=== PATIENT | male | born 1955 | race Caucasian/White ===

== ENCOUNTER 2016-12-03 10:09 | Emergency (ER) | payer OTHER ==
[~2016-12-03] VITALS: Ht 177.8 cm; Wt 109.8 kg
[2016-12-03] MEDS ORDERED: SENNA LAX8.6 MG PO (10:43)
[2016-12-03] MEDS ORDERED: ZESTRIL40 MG PO (10:44)
[2016-12-03] MEDS ORDERED: AMOXICILLIN875 MG PO (10:45)
[2016-12-03] MEDS ORDERED: FUROSEMIDE40 MG PO (10:45)
[2016-12-03] MEDS ORDERED: ROBAXIN-750750 MG PO ×2 (10:46)
[2016-12-03] MEDS ORDERED: TIZANIDINE HCL4 MG PO (10:46)
[2016-12-03] MEDS ORDERED: MIRAPEX0.5 MG PO (10:47)
[2016-12-03] MEDS ORDERED: ZOLOFT50 MG PO (10:47)
[2016-12-03] MEDS ORDERED: K-TAB ER20 MEQ PO (10:47)
[2016-12-03] MEDS ORDERED: PERCOCET 5-3251 EACH PO ×2 (10:48→10:49)
[2016-12-03] MEDS ORDERED: CORGARD80 MG PO (10:48)
[2016-12-03] MEDS ORDERED: OMEPRAZOLE20 MG PO (10:49)
--- NOTE | 2016-12-03 16:35 | EKG ---
[facility] [address] [facility] [place], [place] [address] Signed Normal sinus rhythm Incomplete right bundle branch block T wave abnormality, consider anterior ischemia Abnormal ECG No previous ECGs available Confirmed by TAISHA BAE MD ([id number]) on 12/03/2016 4:35:40 PM Electronically Signed By: TAISHA BAE MD 12/03/16 1635 PATIENT NAME: KASSANDRA [place] Electrocardiogram DATE OF : 57 PHYSICIAN: TAISHA BAE MD REPORT #: [id number] REPORT IS CONFIDENTIAL AND NOT TO BE RELEASED WITHOUT AUTHORIZATION
== END 2016-12-03 14:05 | disposition home or self-care (01) ==
LOC: ED 10:09
DX: I11.0 Hypertensive heart disease with heart failure (principal); I50.9 Heart failure, unspecified; Z79.899 Other long term (current) drug therapy; Z79.2 Long term (current) use of antibiotics
CPT/HCPCS: 71020; 74020; 80053; 81001; 83880; 84484; 85025; 93005; 93010; 99284

== ENCOUNTER 2016-12-03 17:33 | Emergency (ER) | payer OTHER ==
[~2016-12-03] VITALS: Ht 177.8 cm; Wt 109.8 kg
[~2016-12-03 17:33] MED LIST: AMOXICILLIN875 MG PO; CORGARD80 MG PO; FUROSEMIDE40 MG PO; K-TAB ER20 MEQ PO; MIRAPEX0.5 MG PO; OMEPRAZOLE20 MG PO; PERCOCET 5-3251 EACH PO; ROBAXIN-750750 MG PO; SENNA LAX8.6 MG PO; TIZANIDINE HCL4 MG PO; ZESTRIL40 MG PO; ZOLOFT50 MG PO
--- NOTE | 2016-12-04 20:30 | EKG ---
[facility] [address] [facility] [place] [address] Signed Normal sinus rhythm Incomplete right bundle branch block ST \T\ T wave abnormality, consider anterolateral ischemia Abnormal ECG When compared with ECG of 03-DEC-2016 11:02, No significant change was found Confirmed by TAISHA BAE MD (255) on 12/04/2016 8:30:10 PM Electronically Signed By: TAISHA BAE MD 12/04/16 2030 PATIENT NAME: KASSANDRA [place] Electrocardiogram DATE OF : 57 PHYSICIAN: TAISHA BAE MD REPORT #: [id number] REPORT IS CONFIDENTIAL AND NOT TO BE RELEASED WITHOUT AUTHORIZATION
== END 2016-12-03 20:15 | disposition short-term general hospital (02) ==
LOC: ED 17:33
DX: I26.99 Other pulmonary embolism without acute cor pulmonale (principal); I10 Essential (primary) hypertension; Z79.899 Other long term (current) drug therapy; Z79.2 Long term (current) use of antibiotics
CPT/HCPCS: 71260; 80053; 84484; 85025; 85610; 85730; 85732; 93005; 93010; 96372; 99285; J1650; Q9967

== ENCOUNTER 2019-11-12 00:26 | Emergency (ER) | payer MEDICARE ==
[~2019-11-12] VITALS: Ht 177.8 cm; Wt 109.8 kg
--- OUTSIDE RECORDS SUMMARY | ~2019-11-12 | XMS | Encounter Summary ---
Demographics + + + | Address | [address] | | | [place] [address] | + + + | Home Phone | | + + + | Preferred Language | Unknown | + + + | Marital Status | | + + + | Baptist Affiliation | Unknown | + + + | Race | White | + + + | Ethnic Group | Not or | + + + Author + + + | Author | [facility] | | | and [place] | + + + | Organization | [facility] | | | and [place] | + + + | Address | Unknown | + + + | Phone | Unavailable | + + + Support + + +---------+ + | Name | Relationship | Address | Phone | + + +---------+ + | Gely Interiano | ECON | Unknown | | + + +---------+ + | Elier Interiano | ECON | Unknown | | + + +---------+ + | Tali Interiano | ECON | Unknown | | + + +---------+ + Care Team Providers + +------+ + | Care Equipment Washer Name | Role | Phone | + +------+ + | Isaac Miranda MD | PCP | | + +------+ + Reason for Visit +--------+--------+ + | Reason | Onset | Comments | | | Date | | +--------+--------+ + | Other | 01/21/ | | | | 2011 | | +--------+--------+ + Encounter Details +--------+ + + + + | Date | Type | Department | Care Team | Description | +--------+ + + + + | 01/21/ | Telephone | [facility] | Sara Hu | Other | | 2011 | | NEUROSURGERY [address] | [address] | | | | | [facility] [address] | | | | | | [place] | | | | | | [address] | | | | | | [phone] | | | +--------+ + + + + Social History + +-------+ +--------+------+ | Tobacco Use | Types | Packs/Day | Years | Date | | | | | Used | | + +-------+ +--------+------+ | Never Smoker | | | | | + +-------+ +--------+------+ + +---+---+---+ | Smokeless Tobacco: | | | | | Current User | | | | + +---+---+---+ + + +---------+ + | Alcohol Use | Drinks/Week | oz/Week | Comments | + + +---------+ + | Yes | | | RARELY | + + +---------+ + + + + | Sex Assigned at | Date Recorded | | | | + + + | Not on file | | + + + documented as of this encounter Miscellaneous Notes Telephone Encounter - Hillary Dailey - 01/23/2012 10:00 AM PSTSurmemo scheduled for 13/02. Spine class 02/07/12. Hillary Dailey elephone Encounter - Sara Hu - 01/22/2012 8:11 AM PSTWants to schedule surgery for Patrice before the en d of the year. She did receive a letter from insurance for authorization.Electronically sig awais by Sara Hu at 01/22/2012 8:13 AM PSTdocumented in this encounter Plan of Treatment Not on filedocumented as of this encounter Visit Diagnoses Not on filedocumented in this encounter"
--- OUTSIDE RECORDS SUMMARY | ~2019-11-12 | XMS | Encounter Summary ---
Demographics + + + | Address | [address] | | | [place] [address] | + + + | Home Phone | | + + + | Preferred Language | Unknown | + + + | Marital Status | | + + + | Congregation Affiliation | Unknown | + + + | Race | White | + + + | Ethnic Group | Not or | + + + Author + + + | Author | [facility] | | | and [place] | + + + | Organization | [facility] | | | [...] Team Providers + +------+ + | Care Health Support Specialist Name | Role | Phone | + +------+ + | Santi Dumont MD | PCP | | + +------+ + Encounter Details +--------+ + + + + | Date | Type | Department | Care Team | Description | +--------+ + + + + | 04/10/ | Episode | [facility] | [place], | | | 2017 | Changes | ORTHOPEDIC SURGERY | Health Technical Writer | | | | | [address] | | | | | | [place] | | | | | | [address] | | | | | | [phone] | | | +--------+ + + + + Social History + +-------+ +--------+ + | Tobacco Use | Types | Packs/Day | Years | Date | | | | | Used | | + +-------+ +--------+ + | Former Smoker | | | | Quit: 02/18/2013 | + +-------+ +--------+ + + +---+---+---+ | Smokeless Tobacco: | | | | | Former User | | | | + +---+---+---+ + + | Comments: Never smoked, quit smokeless tobacco | + + + + +---------+ + | Alcohol Use | Drinks/Week | oz/Week | Comments | + + +---------+ + | No | | | | + + +---------+ + + + + | Sex Assigned at | Date Recorded | | | | + + + | Not on file | | + + + documented as of this encounter Plan of Treatment Not on filedocumented as of this encounter Visit Diagnoses Not on filedocumented in this encounter"
--- OUTSIDE RECORDS SUMMARY | ~2019-11-12 | XMS | Encounter Summary ---
Demographics + + + | Address | [address] | | | [place] [address] | + + + | Home Phone | | + + + | Preferred Language | Unknown | + + + | Marital Status | | + + + | Muslim Affiliation | Unknown | + + + | Race | White | + + + | Ethnic Group | Not or | + + + Author + + + | Author | [facility] | | | and [place] | + + + | Organization | [facility] | | | [...] Team Providers + +------+ + | Care Dog Handler Or Trainer Name | Role | Phone | + +------+ + | Isaac Miranda MD | PCP | | + +------+ + Reason for Visit +--------+ + | Reason | Comments | +--------+ + | Other | S/P LUMBAR FUSION | +--------+ + Encounter Details +--------+---------+ + + + | Date | Type | Department | Care Team | Description | +--------+---------+ + + + | 04/03/ | Office | [facility] | Mahendra Luna MD | Spondylolisthesis of | | 2012 | Visit | NEUROSURGERY [address] | [address] | lumbar region | | | | [address] | [place] [address] | (Primary Dx); Lumbar | | | | [place] | [phone] | disc herniation | | | | [address] | | with radiculopathy; | | | | [phone] | | Cervical spondylosis | | | | | | with myelopathy | +--------+---------+ + + + Social History + +-------+ +--------+------+ | Tobacco Use | Types | Packs/Day | Years | Date | | | | | Used | | + +-------+ +--------+------+ | Never Smoker | | | | | + +-------+ +--------+------+ + +---+---+---+ | Smokeless Tobacco: | | | | | Former User | | | | + +---+---+---+ + + | Comments: quit 06/21/11 | + + + + +---------+ + | Alcohol Use | Drinks/Week | oz/Week | Comments | + + +---------+ + | Yes | | | RARELY | + + +---------+ + + + + | Sex Assigned at | Date Recorded | | | | + + + | Not on file | | + + + documented as of this encounter Last Filed Vital Signs + + + + + | Vital Sign | Reading | Time Taken | Comments | + + + + + | Blood Pressure | 132/95 | 04/03/2012 11:45 AM | | | | | PST | | + + + + + | Pulse | 60 | 04/03/2012 11:45 AM | | | | | PST | | + + + + + | Temperature | - | - | | + + + + + | Respiratory Rate | 16 | 04/03/2012 11:45 AM | | | | | PST | | + + + + + | Oxygen Saturation | - | - | | + + + + + | Inhaled Oxygen | - | - | | | Concentration | | | | + + + + + | Weight | 111.1 kg (245 lb) | 04/03/2012 11:45 AM | | | | | PST | | + + + + + | Height | 177.8 cm (5' 10") | 04/03/2012 11:45 AM | | | | | PST | | + + + + + | Body Mass Index | 35.15 | 04/03/2012 11:45 AM | | | | | PST | | + + + + + documented in this encounter Patient Instructions Patient Instructions Mahendra Luna MD - 04/03/2012 12:43 PM PSTAdvance activities and wean your brace as directed. documented in this encounter Progress Notes Mahendra Luna MD - 04/03/2012 12:46 PM PSTFormatting of this note might be different from t he original. Mahendra Luna MD [address] [place] [address], [address] [place] [address] FAX: NEUROSURGERY SURGICAL FOLLOW-UP CHIEF COMPLAINT: Chief Complaint Patient presents with Other S/P LUMBAR FUSION HISTORY OF PRESENT ILLNESS: The patient is a 56 y.o. male that had a lumbar fusion by me for lumbar sponylolisthesis around 6-8 weeks ago. He returns and overall is doing well. Th e patient complains of less back pain and no leg symptoms. He is 95% better. The patient h as not been walking as much as possible due to his location and the terrain around it. He i s still taking pain medications at this point but has been weaning them. The patient has rivera d no issues with his surgical site. CURRENT MEDICATIONS: Current Outpatient Prescriptions Medication Sig Dispense Refill oxyCODONE-acetaminophen (PERCOCET) 5-325 mg per tablet Take 1-2 tablets by mouth every 4 hours as needed for Pain. 60 tablet 0 finasteride (PROSCAR) 5 mg tablet Take 5 mg by mouth Daily. oxyCODONE-acetaminophen (PERCOCET) 7.5-325 mg per tablet Take 1-2 tablets by mouth ever y 4 hours as needed for Pain. 60 tablet 0 Lactulose SOLN Take 30 mLs by mouth every 6 hours as needed (Constipation). 240 mL 1 furosemide (LASIX) 20 mg tablet Take 20 mg by mouth 2 times daily. terazosin (HYTRIN) 2 MG capsule Take 2 mg by mouth nightly. tamsulosin (FLOMAX) 0.4 mg CAPS Take 0.4 mg by mouth daily (after breakfast). methocarbamol (ROBAXIN) 750 mg tablet Take 750 mg by mouth 4 times daily. sertraline (ZOLOFT) 50 mg tablet Take 50 mg by mouth Daily. lisinopril (PRINIVIL, ZESTRIL) 20 mg tablet Take 20 mg by mouth Daily. nadolol (CORGARD) 80 MG tablet Take 80 mg by mouth Daily. pramipexole (MIRAPEX) 0.5 MG tablet Take 0.5 mg by mouth Daily. ALLERGIES: No Known Allergies SOCIAL HISTORY: The patient reports that he has never smoked. He has quit using smokeless tobacco. He repo rts that he drinks alcohol. He reports that he does not use illicit drugs. INTERIM PHYSICAL EXAMINATION: Blood pressure 132/95, pulse 60, resp. rate 16, height 1.778 m (5' 10"), weight 111.131 kg (245 lb). Body mass index is 35.15 kg/(m^2). GENERAL: Patrice Interiano is in no acute distress with unlabored respirations. SPINE: The patient s incisions are healing well without drainage, significant erythema, o r discharge EXTREMITIES: No lower extremity edema. NEUROLOGICAL EXAMINATION: MENTAL STATUS: The patient is awake, alert, and oriented. He follows simple and complex commands MOTOR EXAM: Motor strength is 5/5. He remains spastic in the upper extremities. RADIOGRAPHIC REVIEW: The patient s postoperative x-rays show stable instrumentation and alignment and were rev iewed with the patient today. There have been no interval changes since the immediate posto perative films. Complete fusion has not yet occurred, but this is normal and would not be e xpected at this time. ASSESSMENT: S/P lumbar fusion and cervical fusion for: Encounter Diagnoses Name Primary? Spondylolisthesis of lumbar region Yes Lumbar disc herniation with radiculopathy Cervical spondylosis with myelopathy Past Medical History Diagnosis Date Cervical spondylosis with myelopathy Cervical radiculopathy C3-C7 Lumbar spondylosis Spondylolisthesis of lumbar region Lumbar facet arthropathy MULTILEVEL Lumbar degenerative disc disease Hypertension GERD (gastroesophageal reflux disease) Anxiety Tremor Restless leg syndrome Smokeless tobacco use PLAN: Overall, the patient is doing well. He is still recovering from his cervical and lumbar rios rgery. I increased the patient s activities slowly now allowing 15 pound lifting and also will b egin the process of brace weaning. I would like the patient to advance slowly with this pro cess and discussed this at length during today's visit. I would also like the patient to co ntinue with postoperative rehabilitation and to advance with therapy as tolerated. I am hoping to see improvement over the coming weeks to months and plan to continue to foll ow this patient. He will have new x-rays of his neck and low back at next visit. I spent 30 minutes in visit with Patrice Interiano today with the majority of time spent counse lling the patient on his recovery and coordinating his future care. The patient will follow -up with me in around 5-7 weeks for re-evaluation. ELECTRONICALLY SIGNED BY: Mahendra Luna MD, 04/03/2012 12:47 documented in this encounter Plan of Treatment Not on filedocumented as of this encounter Results XR Lumbar Spine 2 or 3 Vw (05/21/2012 4:32 PM PDT) + + | Specimen | + + | | + + + + + | Narrative | Performed At | + + + | [facility] | REVLOC | | Department [address] [place] | [facility] | | [ rep ct [address]] [ rep ct [facility] | | st zip] Signed | - IMAGING | | | | | Patient Name: PATRICE INTERIANO Physician: | | | : 1955 Age: 56 Sex: M Unit #: [id number] | | | Exam Date: 05/21/12 [place] [facility] | | | Report #: [id number] Page: | | | %(RAD)RES..mtdd.print.filter("pg") of %(RAD) | | | RES..mtdd.print.filter("tpg") | | | | | | Accession Number: [id number] | | | TWO VIEWS LUMBAR SPINE, 05/21/2012 CLINICAL HISTORY: | | | FOLLOWUP LUMBAR FUSION. COMPARISON: Lumbar | | | radiographs 04/03/2012 and 02/15/2012. FINDINGS: Five | | | nonribbearing, lumbar-type vertebrae are again visible. There is | | | persistent rightward lumbar curvature centered at L2-3. Interbody | | | and posterior josie and pedicle screw fusion hardware remains in | | | similar, satisfactory position and alignment at L4-5 and L5-S1. | | | Lumbar vertebral height is maintained, without evident fracture. | | | Mild retrolisthesis is again visible at L1-2 and L2- 3. There is | | | multilevel vertebral spondylosis and facet hypertrophy. Sacroiliac | | | joints, imaged sacrum , bony pelvis and lower ribs are unremarkable. | | | No abnormality of the imaged abdomen is visible. | | | IMPRESSION: 1. STABLE, SATISFACTORY APPEARANCE OF INTERBODY | | | AND POSTERIOR JOSIE AND PEDICLE SCREW FUSION HARDWARE AT L4-5 AND | | | L5-S1. 2. DEXTROSCOLIOSIS WITH PERSISTENT MILD | | | RETROLISTHESIS AT L1-2 AND L2-3 AND MULTILEVEL SPONDYLOSIS. | | | Dictated Date/Time: 05/21/2012 16:32 Transcribed Date/Time: | | | 05/21/2012 16:58 Order Processing Manager: EdgarSAMANTHA | | | <<Signature on File>> | | | Leander Wang | | | MD Santi05/21/12 1719 <Electronically signed by Leander Hancock MD> | | | Leander Hancock MD 05/21/12 1632 Order Processing Manager: | | | [employer] Rphjcoezmnloi56/02/13 [id number] Mahendra Luna MD | | | | | + + + + + + + + | Performing | Address | City/State/Zipcode | Phone Number | | Organization | | | | + + + + + | [facility] | [address] | [place] | [phone] | | [facility] | | [address] | | | - IMAGING | | | | + + + + + XR CERVICAL SPINE 3 VIEWS OR LESS (05/21/2012 3:06 PM PDT) + + | Specimen | + + | | + + + + + | Narrative | Performed At | + + + | [facility] | REVLOC | | Department [address] [place] | [facility] | | [ rep ct [address]] [ rep ct [facility] | | st zip] Signed | - IMAGING | | | | | Patient Name: PATRICE INTERIANO Physician: | | | : 1955 Age: 56 Sex: M Unit #: [id number] | | | Exam Date: 05/21/12 [place] [facility] | | | Report #: [id number] Page: | | | %(RAD)RES..mtdd.print.filter("pg") of %(RAD) | | | RES..mtdd.print.filter("tpg") | | | | | | Accession Number: [id number] | | | CERVICAL SPINE TWO-VIEW X-RAY CLINICAL HISTORY: | | | POSTOP. COMPARISON: 01/16/2012 FINDINGS: | | | Anterior cervical spinal fusion hardware is again seen extending | | | from the levels of C4 through C7, with graft material seen at the | | | intervening disc spaces. There is no evidence of complication. | | | Alignment is maintained. Adjacent soft tissues are unremarkable. | | | IMPRESSION: STABLE ANTERIOR CERVICAL DISCECTOMY AND | | | FUSION CHANGES, WITHOUT COMPLICATION. Dictated Date/Time: | | | 05/21/2012 15:06 Transcribed Date/Time: 05/21/2012 15:15 | | | Order Processing Manager: <<Signature on File>> | | | | | | Mahendra Hartman MD05/22/12 0943 <Electronically signed by Mahendra | | | Bernadette Hartman MD> Mahendra Hartman MD 05/21/12 1506 | | | Order Processing Manager: Lisandro [id number]/02/13 7630 | | | Mahendra Luna MD | | + + + + + + + + | Performing | Address | City/State/Zipcode | Phone Number | | Organization | | | | + + + + + | [facility] | [address] | [place] | [phone] | | [facility] | | [address] | | | - IMAGING | | | | + + + + + documented in this encounter Visit Diagnoses + + | Diagnosis | + + | Spondylolisthesis of lumbar region - Primary Acquired spondylolisthesis | + + | Lumbar disc herniation with radiculopathy Displacement of lumbar intervertebral disc | | without myelopathy | + + | Cervical spondylosis with myelopathy | + + documented in this encounter
--- OUTSIDE RECORDS SUMMARY | ~2019-11-12 | XMS | Encounter Summary ---
Demographics + + + | Address | [address] | | | [place] [address] | + + + | Home Phone | | + + + | Preferred Language | Unknown | + + + | Marital Status | | + + + | Hinduism Affiliation | Unknown | + + + | Race | White | + + + | Ethnic Group | Not or | + + + Author + + + | Author | [facility] | | | and [place] | + + + | Organization | [facility] | | | and [...] Team Providers + +------+ + | Care Language Assistant Name | Role | Phone | + +------+ + | Santi Dumont MD | PCP | | + +------+ + Encounter Details +--------+ + + + + | Date | Type | Department | Care Team | Description | +--------+ + + + + | 04/26/ | Abstract | [facility] | Santi Dumont MD | | | 2018 | | [facility] [address] | [address] [facility] [address] | | | | | [address] [place], | [place] | | | | | [place] [address] | [address] | | | | | [phone] | | | +--------+ + + + [...] Not on filedocumented as of this encounter Procedures + +--------+ + + + | Procedure Name | Priori | Date/Time | Associated Diagnosis | Comments | | | ty | | | | + +--------+ + + + | EXTERNAL LAB: | Routin | 04/18/2017 | | Results for this | | GLUCOSE | e | | | procedure are in the | | | | | | results section. | + +--------+ + + + | EXTERNAL LAB: CBC | Routin | 04/18/2017 | | Results for this | | | e | | | procedure are in the | | | | | | results section. | + +--------+ + + + | EXTERNAL LAB: | Routin | 04/18/2017 | | Results for this | | TRIGLYCERIDES | e | | | procedure are in the | | | | | | results section. | + +--------+ + + + | EXTERNAL LAB: | Routin | 04/18/2017 | | Results for this | | CHOLESTEROL, HDL | e | | | procedure are in the | | | | | | results section. | + +--------+ + + + | EXTERNAL LAB: | Routin | 04/18/2017 | | Results for this | | CHOLESTEROL, TOTAL | e | | | procedure are in the | | | | | | results section. | + +--------+ + + + | EXTERNAL LAB: | Routin | 04/18/2017 | | Results for this | | CHOLESTEROL, LDL | e | | | procedure are in the | | | | | | results section. | + +--------+ + + + | EXTERNAL LAB: | Routin | 04/18/2017 | | Results for this | | CREATININE | e | | | procedure are in the | | | | | | results section. | + +--------+ + + + | HC HEP C ANTIBODY | Routin | 03/23/2017 | | Results for this | | (HCV) | e | | | procedure are in the | | | | | | results section. | + +--------+ + + + documented in this encounter Results External Lab: Glucose (04/18/2017) + +-------+ + + + | Component | Value | Ref Range | Performed | Pathologist | | | | | At | Signature | + +-------+ + + + | Glucose, | 98 | 70 - 100 | | | | External | | | | | + +-------+ + + + + + | Specimen | + + | | + + External Lab: CBC (04/18/2017) + +-------+ + + + | Component | Value | Ref Range | Performed | Pathologist | | | | | At | Signature | + +-------+ + + + | WBC, | 5.5 | | | | | External | | | | | + +-------+ + + + | HGB, | 14.2 | | | | | External | | | | | + +-------+ + + + | PLT, | 200 | | | | | External | | | | | + +-------+ + + + External Lab: Triglycerides (04/18/2017) + +-------+ + + + | Component | Value | Ref Range | Performed | Pathologist | | | | | At | Signature | + +-------+ + + + | Triglycerid | 276 | | | | | es, | | | | | | External | | | | | + +-------+ + + + + + | Specimen | + + | Blood | + + External Lab: Cholesterol, HDL (04/18/2017) + +-------+ + + + | Component | Value | Ref Range | Performed | Pathologist | | | | | At | Signature | + +-------+ + + + | HDL | 30.8 | mg/dl | | | | Cholesterol | | | | | | , External | | | | | + +-------+ + + + + + | Specimen | + + | Blood | + + External Lab: Cholesterol, Total (04/18/2017) + +-------+ + + + | Component | Value | Ref Range | Performed | Pathologist | | | | | At | Signature | + +-------+ + + + | Cholesterol | 193 | mg/dl | | | | , Total, | | | | | | External | | | | | + +-------+ + + + + + | Specimen | + + | Blood | + + External Lab: Cholesterol, LDL (04/18/2017) + +-------+ + + + | Component | Value | Ref Range | Performed | Pathologist | | | | | At | Signature | + +-------+ + + + | LDL | 107 | | | | | Cholesterol | | | | | | , Direct, | | | | | | External | | | | | + +-------+ + + + + + | Specimen | + + | Blood | + + External Lab: Creatinine (04/18/2017) + +-------+ + + + | Component | Value | Ref Range | Performed | Pathologist | | | | | At | Signature | + +-------+ + + + | Creatinine, | 0.92 | | | | | External | | | | | + +-------+ + + + + + | Specimen | + + | Blood | + + HC HEP C ANTIBODY (HCV) (03/23/2017) + + + + + + | Component | Value | Ref Range | Performed | Pathologist | | | | | At | Signature | + + + + + + | Hepatitis C | negativeComment: | | | | | Ab, | ANTI-HCV | | | | | Immunoblot | | | | | + + + + + + documented in this encounter Visit Diagnoses Not on filedocumented in this encounter"
--- OUTSIDE RECORDS SUMMARY | ~2019-11-12 | XMS | Encounter Summary ---
Demographics + + + | Address | [address] | | | [place] [address] | + + + | Home Phone | | + + + | Preferred Language | Unknown | + + + | Marital Status | | + + + | Gnosticism Affiliation | Unknown | + + + | Race | White | + + + | Ethnic Group | Not or | + + + Author + + + | Author | [facility] | + + + | Organization | [facility] | + + + | Address | Unknown | + + + | Phone | Unavailable | + + + Support + + +---------+ + | Name | Relationship | Address | Phone | + + +---------+ + | Gely Interiano | ECON | Unknown | | + + +---------+ + Care Team Providers + +------+ + | Care Head Mechanic Name | Role | Phone | + +------+ + | Isaac Miranda MD | PCP | | + +------+ + Encounter Details +--------+ + + + + | Date | Type | Department | Care Team | Description | +--------+ + + + + | 04/28/ | Document-Sc | Health Information | Unknown . | | | 2017 | anned | Services [id number] | | | | | [address] | | | | | | Mailcode: OP17A | | | | | | [facility] | | | | | | [place], [place] | | | | | | [address] | | | | | | [phone] | | | +--------+ + + + + Social History + +-------+ +--------+------+ | Tobacco Use | Types | Packs/Day | Years | Date | | | | | Used | | + +-------+ +--------+------+ | Never Smoker | | | | | + +-------+ +--------+------+ + + + | Sex Assigned at | Date Recorded | | | | + + + | Not on file | | + + + documented as of this encounter Plan of Treatment Not on filedocumented as of this encounter Visit Diagnoses Not on filedocumented in this encounter"
--- OUTSIDE RECORDS SUMMARY | ~2019-11-12 | XMS | Encounter Summary ---
Demographics + + + | Address | [address] | | | [place] [address] | + + + | Home Phone | | + + + | Preferred Language | Unknown | + + + | Marital Status | | + + + | Bahai Affiliation | Unknown | + + + | Race | White | + + + | Ethnic Group | Not or | + + + Author + + + | Author | [facility] | | | and Brianana | + + + | Organization | [facility] | | | [...] Team Providers + +------+ + | Care Assistant Buyer Name | Role | Phone | + +------+ + | Santi Dumont MD | PCP | | + +------+ + Reason for Visit + + + | Reason | Comments | + + + | Medication Refill | | + + + Encounter Details +--------+--------+ + + + | Date | Type | Department | Care Team | Description | +--------+--------+ + + + | 08/24/ | Refill | [facility] | Santi Dumont MD | Medication Refill | | 2019 | | MEDICINE [address] [place] [address] | [address] | | | | | [address] [place], | [place], [place] | | | | | [place] [address] | [address] | | | | | [phone] | | | +--------+--------+ + + + Social History + +-------+ +--------+------+ | Tobacco Use | Types | Packs/Day | Years | Date | | | | | Used | | + +-------+ +--------+------+ | Never Smoker | | | | | + +-------+ +--------+------+ + +------+---+ + | Smokeless Tobacco: | Chew | | Quit: | | Former User | | | 02/19/20 | | | | | 13 | + +------+---+ + + + | Comments: Never smoked, quit smokeless tobacco | + + + + +---------+ + | Alcohol Use | Drinks/Week | oz/Week | Comments | + + +---------+ + | Yes | | | beer once every | | | | | couple years | + + +---------+ + + + + | Sex Assigned at | Date Recorded | | | | + + + | Not on file | | + + + documented as of this encounter Functional Status + + + + | Functional Status | Response | Date of Assessment | + + + + | Are you deaf or do you have serious | No | 08/14/2019 | | difficulty hearing? | | | + + + + | Are you blind or do you have serious | No | 08/14/2019 | | difficulty seeing, even when wearing | | | | glasses? | | | + + + + | Do you have serious difficulty walking or | No | 08/14/2019 | | climbing stairs? (5 years old or older) | | | + + + + | Do you have difficulty dressing or bathing? | No | 08/14/2019 | | (5 years old or older) | | | + + + + | Because of a physical, mental, or emotional | No | 08/14/2019 | | condition, do you have difficulty doing | | | | errands alone such as visiting a doctor's | | | | office or shopping? [15 years old or | | | | older)] | | | + + + + + + + + | Cognitive Status | Response | Date of Assessment | + + + + | Because of a physical, mental, or emotional | No | 08/14/2019 | | condition, do you have serious difficulty | | | | concentrating, remembering, or making | | | | decisions? (5 years old or older) | | | + + + + documented as of this encounter Plan of Treatment Not on filedocumented as of this encounter Visit Diagnoses Not on filedocumented in this encounter"
--- OUTSIDE RECORDS SUMMARY | ~2019-11-12 | XMS | Encounter Summary ---
Demographics + + + | Address | [address] | | | [place] [address] | + + + | Home Phone | | + + + | Preferred Language | Unknown | + + + | Marital Status | | + + + | Congregational Affiliation | Unknown | + + + | Race | White | + + + | Ethnic Group | Not or | + + + Author + + + | Author | [facility] | | | and Brianana | + + + | Organization | [facility] | | | [...] Team Providers + +------+ + | Care Diesel Engine Fitter Name | Role | Phone | + +------+ + | Santi Dumont MD | PCP | | + +------+ + Reason for Referral Diagnostic/Screening (Emergency) +--------+--------+ + + + + | Status | Reason | Specialty | Diagnoses / | Referred By | Referred To | | | | | Procedures | Contact | Contact | +--------+--------+ + + + + | Closed | | Radiology | Diagnoses | Fatima, | [address] | | | | | SOB | Edilma | [address] | | | | | (shortness | Jenni, | [place], | | | | | of breath) | [employer] [address] | [place] [address] | | | | | Personal | [address] | Phone: | | | | | history of | [place], | [phone] | | | | | pulmonary | [place] [address] | Fax: | | | | | embolism | Phone: | [phone] | | | | | Personal | [phone] | | | | | | history of | Fax: | | | | | | DVT (deep | [phone] | | | | | | vein | | | | | | | thrombosis) | | | | | | | Hypoxemia | | | | | | | Procedures | | | | | | | CT Angiogram | | | | | | | Pulmonary | | | +--------+--------+ + + + + Reason for Visit Diagnostic/Screening (Emergency) +--------+--------+ + + + + | Status | Reason | Specialty | Diagnoses / | Referred By | Referred To | | | | | Procedures | Contact | Contact | +--------+--------+ + + + + | Closed | | Radiology | Diagnoses | Fatima, | [address] | | | | | SOB | Edilma | [address] | | | | | (shortness | Jenni, | [place], | | | | | of breath) | [employer] [address] | [place] [address] | | | | | Personal | [address] | Phone: | | | | | history of | [place], | [phone] | | | | | pulmonary | [place] [address] | Fax: | | | | | embolism | Phone: | [phone] | | | | | Personal | [phone] | | | | | | history of | Fax: | | | | | | DVT (deep | [phone] | | | | | | vein | | | | | | | thrombosis) | | | | | | | Hypoxemia | | | | | | | Procedures | | | | | | | CT Angiogram | | | | | | | Pulmonary | | | +--------+--------+ + + + + Encounter Details +--------+ + + + + | Date | Type | Department | Care Team | Description | +--------+ + + + + | 12/07/ | Hospital | [facility] | Edilma Fatima | SOB (shortness of | | 2018 | Encounter | [facility] [address] | Jenni, [employer] | breath); Personal | | | | [address] [place], | [address] [place] | history of pulmonary | | | | [place] [address] | [place] [address] | embolism; Personal | | | | [phone] | [phone] | history of DVT (deep | | | | | | vein thrombosis); | | | | | | Hypoxemia | +--------+ + + + + Social History + +-------+ +--------+------+ | Tobacco Use | Types | Packs/Day | Years | Date | | | | | Used | | + +-------+ +--------+------+ | Never Smoker | | | | | + +-------+ +--------+------+ + +---+---+ + | Smokeless Tobacco: | | | Quit: | | Former User | | | 02/19/20 | | | | | 13 | + +---+---+ + + + | Comments: Never smoked, [...] + + documented as of this encounter Medications at Time of Discharge + + + +---------+ + + | Medication | Sig | Dispensed | Refills | Start | End Date | | | | | | Date | | + + + +---------+ + + | acetaminophen | Take 500 mg by mouth | | 0 | | | | (TYLENOL) 500 mg | every 6 hours as | | | | | | tablet | needed for Pain. | | | | | + + + +---------+ + + | loratadine | Take 10 mg by mouth | | 0 | | | | (CLARITIN) 10 mg | as needed. | | | | | | tablet | | | | | | + + + +---------+ + + | omeprazole | Take 20 mg by mouth | | 0 | | | | (PRILOSEC) 20 mg | Daily as needed | | | | | | capsule | | | | | | + + + +---------+ + + | albuterol (PROAIR | Inhale 2 puffs into | 6.7 g | 3 | 03/14/19 | | | HFA) 90 mcg/puff | the lungs every 6 | | | 18 | 9 | | inhaler | hours as needed for | | | | | | | Wheezing. | | | | | + + + +---------+ + + | apixaban (ELIQUIS) | Take 1 tablet by | 60 | 5 | 12/08/19 | | | 5 mg | mouth 2 times daily. | tablet | | 18 | 9 | | tabletIndications: | | | | | | | Bilateral pulmonary | | | | | | | embolism (HCC) | | | | | | + + + +---------+ + + | gabapentin | Take 1 capsule by | 90 | 0 | 03/14/19 | | | (NEURONTIN) 300 mg | mouth 4 times daily. | capsule | | 18 | 9 | | capsule | | | | | | + + + +---------+ + + | | Take 2 tablets by | 60 | 11 | 09/11/19 | | | lisinopril-hydrochlo | mouth Daily. | tablet | | 18 | 9 | | rothiazide | | | | | | | (PRINZIDE,ZESTORETIC | | | | | | | ) 20-25 MG per | | | | | | | tablet | | | | | | + + + +---------+ + + | nadolol (CORGARD) | Take 0.5 tablets by | 30 | 5 | 02/01/20 | | | 80 MG tablet | mouth Daily. | tablet | | 17 | 9 | + + + +---------+ + + | potassium chloride | | | 0 | 11/17/19 | | | (SHERITA-MARCELA M20) 20 | | | | 18 | 9 | | mEq ER tablet | | | | | | + + + +---------+ + + | potassium chloride | Take 1 tablet by | 90 | 3 | 09/21/19 | | | 20 mEq CR tablet | mouth Daily. | tablet | | 18 | 9 | + + + +---------+ + + | pramipexole | Take 1 tablet by | 90 | 3 | 02/01/20 | | | (MIRAPEX) 0.5 MG | mouth Daily. | tablet | | 17 | 9 | | tablet | | | | | | + + + +---------+ + + | sertraline | Take 1 tablet by | 30 | 5 | 07/05/19 | | | (ZOLOFT) 50 mg | mouth Daily. | tablet | | 18 | 8 | | tablet | | | | | | + + + +---------+ + + | terazosin (HYTRIN) | Take 1 capsule by | 30 | 6 | 02/01/20 | | | 5 mg capsule | mouth Daily. | capsule | | 17 | 8 | + + + +---------+ + + | tiZANidine | Take 1 tablet by | 30 | 0 | 09/18/19 | | | (ZANAFLEX) 4 mg | mouth every 6 hours | tablet | | 18 | 9 | | tablet | as needed for Muscle | | | | | | | spasms. | | | | | + + + +---------+ + + documented as of this encounter Plan of Treatment Not on filedocumented as of this encounter Procedures + +--------+ + + + | Procedure Name | Priori | Date/Time | Associated Diagnosis | Comments | | | ty | | | | + +--------+ + + + | CT ANGIOGRAM | STAT | 12/07/2017 | SOB (shortness of | Results for this | | PULMONARY | | 3:56 PM | breath) Personal | procedure are in the | | | | PDT | history of pulmonary | results section. | | | | | embolism Personal | | | | | | history of DVT (deep | | | | | | vein thrombosis) | | | | | | Hypoxemia | | + +--------+ + + + documented in this encounter Results CT Angiogram Pulmonary (12/07/2017 3:56 PM PDT) + + | Specimen | + + | | + + + + + | Narrative | Performed At | + + + | CT ANGIOGRAM PULMONARY 12/07/2017 3:46 PM HISTORY: RODO, | [facility] | | hypoxemia, h/o PE. COMPARISON: None. PROTOCOL: Thin section | | | axial images of the chest were obtained after uneventful | | | administration of 75 mL Omnipaque 350. Coronal and sagittal | | | reformations were acquired. FINDINGS: Neck base is normal. | | | Heart size is at the upper limits of normal. Moderate coronary calcium | | | is present. There is minimal atherosclerosis of the aorta. Minimal | | | atherosclerosis is in the right subclavian artery. Emboli are seen in | | | the segmental and subsegmental branches of the bilateral pulmonary | | | arteries. SVC is normal. No enlarged lymph nodes are seen in the | | | mediastinum, kurt, or axillae. Trachea and esophagus demonstrate no | | | acute findings. The bilateral lungs are clear. There is no | | | evidence for pleural effusion or pneumothorax. There is significant | | | elevation of the right hemidiaphragm. Diffuse low-attenuation is | | | seen of the liver consistent with fatty infiltration. Chest wall | | | structures are normal. There is moderate to severe spondylosis. | | | Fusion hardware are in the cervical spine and lumbar spine. Multilevel | | | moderate disc narrowing are noted. IMPRESSION - Moderate burden | | | of pulmonary emboli in segmental and subsegmental branches of the | | | bilateral pulmonary arteries. Fatty liver. These findings were | | | called to Edilma Fatima. Dictated and Signed by: Jason Jorge | | Electronically signed: 12/07/2017 5:24 PM | | + + + + + | Procedure Note | + + | Francisco, Rad Results In - 12/07/2017 6:[address] ANGIOGRAM PULMONARY 12/07/2017 3:46 | | PMHISTORY: KOEHLER, hypoxemia, h/o PE.COMPARISON: None.PROTOCOL: Thin section axial images | | of the chest were obtained after uneventfuladministration of 75 mL Omnipaque 350. | | Coronal and sagittal reformations wereacquired.FINDINGS:Neck base is normal.Heart size | | is at the upper limits of normal. Moderate coronary calcium ispresent. There is minimal | | atherosclerosis of the aorta. Minimal atherosclerosisis in the right subclavian artery. | | Emboli are seen in the segmental andsubsegmental branches of the bilateral pulmonary | | arteries. SVC is normal.No enlarged lymph nodes are seen in the mediastinum, kurt, or | | axillae. Tracheaand esophagus demonstrate no acute findings.The bilateral lungs are | | clear. There is no evidence for pleural effusion orpneumothorax. There is significant | | elevation of the right hemidiaphragm.Diffuse low-attenuation is seen of the liver | | consistent with fatty infiltration.Chest wall structures are normal. There is moderate | | to severe spondylosis.Fusion hardware are in the cervical spine and lumbar spine. | | Multilevel moderatedisc narrowing are noted.IMPRESSION -Moderate burden of pulmonary | | emboli in segmental and subsegmental branches ofthe bilateral pulmonary arteries.Fatty | | liver.These findings were called to Edilma Fatima.Dictated and Signed by: Sergio Santos | | Electronically signed: 12/07/2017 5:24 PM | | | |No enlarged lymph nodes are seen in the mediastinum, kurt, or axillae. Trachea | |and esophagus demonstrate no acute findings. | | | |The bilateral lungs are clear. There is no evidence for pleural effusion or | |pneumothorax. There is significant elevation of the right hemidiaphragm. | | | |Diffuse low-attenuation is seen of the liver consistent with fatty infiltration. | | | |Chest wall structures are normal. There is moderate to severe spondylosis. | |Fusion hardware are in the cervical spine and lumbar spine. Multilevel moderate | |disc narrowing are noted. | | | |IMPRESSION - | |Moderate burden of pulmonary emboli in segmental and subsegmental branches of | |the bilateral pulmonary arteries. | | | |Fatty liver. | | | |These findings were called to Edilma Fatima. | | | |Dictated and Signed by: Sergio Santos MD | | Electronically signed: 12/07/2017 5:24 PM | + + + +---------+ + + | Performing | Address | City/State[facility] | Phone Number | | Organization | | | | + +---------+ + + | [facility] | | | | + +---------+ + + documented in this encounter Visit Diagnoses + + | Diagnosis | + + | SOB (shortness of breath) Shortness of breath | + + | Personal history of pulmonary embolism | + + | Personal history of DVT (deep vein thrombosis) Personal history of venous thrombosis | | and embolism | + + | Hypoxemia | + + documented in this encounter Administered Medications + +--------+ +--------+------+------+ | Medication Order | MAR | Action | Dose | Rate | Site | | | Action | Date | | | | + +--------+ +--------+------+------+ | iohexol (OMNIPAQUE 350) 350 | Given | 12/08/19 | 75 mLs | | | | mg/mL injection 75 mL 75 mL, | | 18 4:00 | | | | | Intravenous, ONCE PRN, Other, for | | PM PDT | | | | | imaging CT study, Starting Fri | | | | | | | 12/07/17 at 1558, For 1 dose, | | | | | | | Radiology | | | | | | + +--------+ +--------+------+------+ +---+---+ | | | +---+---+ + +------+ +--------+-------+---+ | sodium chloride 0.9% (NS) bolus | Push | 12/08/19 | 45 mLs | 2700 | | | 45 mL 45 mL, Intravenous, | | 18 4:00 | | mL/hr | | | Administer over 1 Minutes, ONCE | | PM PDT | | | | | PRN, for imaging CT study, | | | | | | | Starting 12/07/17 at 1558, | | | | | | | For 1 dose, Radiology | | | | | | + +------+ +--------+-------+---+ +---+---+ | | | +---+---+ documented in this encounter"
--- OUTSIDE RECORDS SUMMARY | ~2019-11-12 | XMS | Encounter Summary ---
Demographics + + + | Address | [address] | | | [place] [address] | + + + | Home Phone | | + + + | Preferred Language | Unknown | + + + | Marital Status | | + + + | Adventism Affiliation | Unknown | + + + | Race | White | + + + | Ethnic Group | Not or | + + + Author + + + | Author | [facility] | | | and [place]ana | + + + | Organization | [facility] | | | [...] Team Providers + +------+ + | Care Hand Woodworking Sander Name | Role | Phone | + +------+ + | Isaac Miranda MD | PCP | | + +------+ + Reason for Visit +--------+--------+ + | Reason | Onset | Comments | | | Date | | +--------+--------+ + | Other | 02/21/ | MEDICATION REFILL ISSUE | | | 2012 | | +--------+--------+ + Encounter Details +--------+ + + + + | Date | Type | Department | Care Team | Description | +--------+ + + + + | 02/21/ | Telephone | [facility] | Mahendra Luna MD | Other (MEDICATION | | 2012 | | NEUROSURGERY [address] | [address] | REFILL ISSUE) | | | | [address] [facility] [address] | [place] [address] | | | | | [place] | [phone] | | | | | [address] | | | | | | [phone] | | | +--------+ + + + [...] Notes Telephone Encounter - Hillary Dailey - 02/23/2012 4:07 PM PSTNew Oxycodone Rx sent to patient via certified mail#[id number] Hillary Dailey elephone Encounter - Hillary Dailey - 02/22/2012 3:57 PM PSTCan not fill Oxycodone Rx until Feb.25. The o riginal Rx that was written by stated amount was for 10 days. Can change this ? Please advise further. Hillary Dailey elephone Encounter - Neto Gross - 02/22/2012 3:54 PM PSTPatient's spouse called saying there is a issue with the refill of Patrice's OXYCODONE refill. She would like to have the doctor's assistant portfolio manager return her call. documented in thi s encounter Plan of Treatment Not on filedocumented as of this encounter Visit Diagnoses Not on filedocumented in this encounter"
--- OUTSIDE RECORDS SUMMARY | ~2019-11-12 | XMS | Clinical Summary ---
Demographics + + + | Address | [address] | | | [place] [address] | + + + | Home Phone | | + + + | Preferred Language | Unknown | + + + | Marital Status | | + + + | Rastafarian Affiliation | Unknown | + + + | Race | White | + + + | Ethnic Group | Not or | + + + Author + + + | Author | [facility] | | | and [place] | + + + | Organization | [facility] | | | and [...] Team Providers + +------+ + | Care Kaiako Kura Tuarua Name | Role | Phone | + +------+ + | Santi Dumont MD | PCP | | + +------+ + Allergies No Known Allergies Medications + + + +---------+------+------+-------+ | Medication | Sig | Dispensed | Refills | Star | End | Statu | | | | | | t | Date | s | | | | | | Date | | | + + + +---------+------+------+-------+ | loratadine | Take 10 mg by mouth | | 0 | | | Activ | | (CLARITIN) 10 mg | as needed. | | | | | e | | tablet | | | | | | | + + + +---------+------+------+-------+ | omeprazole | Take 20 mg by mouth | | 0 | | | Activ | | (PRILOSEC) 20 mg | Daily as needed | | | | | e | | capsule | | | | | | | + + + +---------+------+------+-------+ | acetaminophen | Take 500 mg by mouth | | 0 | | | Activ | | (TYLENOL) 500 mg | every 6 hours as | | | | | e | | tablet | needed for Pain. | | | | | | + + + +---------+------+------+-------+ | albuterol (PROAIR | Inhale 2 puffs into | 6.7 g | 3 | 12/1 | | Activ | | HFA) 90 mcg/puff | the lungs every 6 | | | 8/20 | | e | | inhaler | hours as needed for | | | 19 | | | | | Wheezing. | | | | | | + + + +---------+------+------+-------+ | ELIQUIS 5 MG | TAKE ONE TABLET BY | 60 | 0 | 01/1 | | Activ | | tablet | MOUTH TWICE DAILY | tablet | | 3/20 | | e | | | | | | 20 | | | + + + +---------+------+------+-------+ | tiZANidine | Take 1 tablet by | 30 | 0 | 03/3 | | Activ | | (ZANAFLEX) 4 mg | mouth every 6 hours | tablet | | 1/20 | | e | | tablet | as needed for Muscle | | | 20 | | | | | spasms. | | | | | | + + + +---------+------+------+-------+ | | Take 2 tablets by | 180 | 3 | 03/3 | | Activ | | lisinopril-hydrochlo | mouth Daily. | tablet | | 1/20 | | e | | rothiazide | | | | 20 | | | | (PRINZIDE,ZESTORETIC | | | | | | | | ) 20-25 MG per | | | | | | | | tablet | | | | | | | + + + +---------+------+------+-------+ | terazosin (HYTRIN) | TAKE ONE CAPSULE BY | 30 | 5 | 06/0 | | Activ | | 5 mg capsule | MOUTH EVERY DAY | capsule | | 8/20 | | e | | | | | | 20 | | | + + + +---------+------+------+-------+ +---+ + | | Additional | | | InformationPatient | | | taking differently: | | | NIGHTLY, Reason: Not | | | Available, Reported | | | on 08/12/2019 1:37 | | | PM | +---+ + + + +--------+---+------+---+-------+ | nadolol (CORGARD) | Take one-half tablet | 15 | 5 | 06/0 | | Activ | | 80 MG tablet | once each day | tablet | | 8/20 | | e | | | | | | 20 | | | + + +--------+---+------+---+-------+ +---+ + | | Additional | | | InformationPatient | | | taking differently: | | | NIGHTLY, Reason: Not | | | Available, Reported | | | on 08/12/2019 1:37 | | | PM | +---+ + + + +--------+---+------+---+-------+ | traMADol (ULTRAM) | TAKE ONE OR TWO | | 0 | 06/0 | | Activ | | 50 mg tablet | TABLETS BY MOUTH | | | 4/20 | | e | | | EVERY SIX HOURS | | | 20 | | | | | NEEDED FOR PAIN | | | | | | + + +--------+---+------+---+-------+ | | Take 1-2 tablets by | 50 | 0 | 06/2 | | Activ | | HYDROcodone-acetamin | mouth every 4 hours | tablet | | 5/20 | | e | | ophen (NORCO) 10-325 | as needed for Pain. | | | 20 | | | | mg per tablet | | | | | | | + + +--------+---+------+---+-------+ | potassium chloride | TAKE 1 TABLET BY | 30 | 0 | 07/3 | | Activ | | (KLOR-CON M20) 20 | MOUTH DAILY | tablet | | 0/20 | | e | | mEq ER tablet | | | | 20 | | | + + +--------+---+------+---+-------+ | sertraline | Take 1 tablet by | 30 | 0 | 07/3 | | Activ | | (ZOLOFT) 50 mg | mouth nightly. | tablet | | 0/20 | | e | | tablet | | | | 20 | | | + + +--------+---+------+---+-------+ | pramipexole | TAKE ONE TABLET BY | 30 | 0 | 07/3 | | Activ | | (MIRAPEX) 0.5 MG | MOUTH EVERY DAY | tablet | | 0/20 | | e | | tablet | | | | 20 | | | + + +--------+---+------+---+-------+ Active Problems + + + | Problem | Noted Date | + + + | Abnormal transaminases | 05/18/2018 | + + + | Class 2 severe obesity due to excess calories with serious | 06/07/2017 | | comorbidity and body mass index (BMI) of 35.0 to 35.9 in adult | | + + + | Preventative health care | 02/04/2017 | + + + + + | Overview: Last CRCS: 2010; next due 2020 | | | | PSA: | + + + + + | Acute deep vein thrombosis (DVT) of left lower extremity (HCC) | 12/04/2016 | | 2016 | | + + + | Saddle embolus of pulmonary artery with acute cor pulmonale (HCC) | 12/03/2016 | | 2016 | | + + + | Obstructive sleep apnea with nocturnal hypoxemia | 12/01/2016 | + + + + + | Overview: 11/2016 overnight oximetry on room air showed O2 | | saturation 68-97%, 456 minutes with saturations less than 89% | + + + + + | Lumbar radiculopathy | 07/19/2016 | + + + | Lumbar spinal stenosis | 07/19/2016 | + + + | Hypertension 2015 | 03/07/2014 | + + + + + | Overview: Randy bentley | | Amlodipine not tolerated due to edema | + + + + + | Essential tremor | 02/01/1968 | + + + + + | Overview: Onset age 12Primidone intolerantGabapentin | | [facility] advise [facility] of deep | | brain stimulation | |[facility] evaluation 04/2016 advise consideration of deep brain stimulation | + + + +---+ | Cervical spondylosis with myelopathy | | + +---+ | Cervical radiculopathy | | + +---+ + + | Overview: C3-C7 | + + + +---+ | Spondylolisthesis of lumbar region | | + +---+ | Lumbar degenerative disc disease | | + +---+ | GERD (gastroesophageal reflux disease) | | + +---+ | Anxiety | | + +---+ | Restless leg syndrome | | + +---+ Resolved Problems + +--------+ + | Problem | Noted | Resolved | | | Date | Date | + +--------+ + | Smokeless tobacco use | | | | | | 7 | + +--------+ + Encounters +--------+ + + + + | Date | Type | Specialty | Care Team | Description | +--------+ + + + + | 10/24/ | Refill | Internal Medicine | Shaan Coughlin MD | Medication Refill | | 2019 | | | | | +--------+ + + + + | 09/29/ | Imaging | Radiology | Provider, | | | 2019 | Exam | | MD Nayan | | +--------+ + + + + | 09/17/ | Telephone | Internal Medicine | Santi Dumont MD | Appointment | | 2020 | | | | | +--------+ + + + + | 09/17/ | Refill | Internal Medicine | Shaan Coughlin MD | Medication Refill | | 2019 | | | | | +--------+ + + + + | 09/17/ | Refill | Internal Medicine | Santi Dumont MD | Medication Refill | | 2019 | | | | | +--------+ + + + + | 08/24/ | Telephone | Internal Medicine | Santi Dumont MD | Edema | | 2019 | | | | | +--------+ + + + + | 08/24/ | Refill | Internal Medicine | Santi Dumont MD | Medication Refill | | 2019 | | | | | +--------+ + + + + | 08/17/ | Telephone | | Radha Ricks, | Hospital Discharge | 2019 | | | RN | Follow-up | +--------+ + + + + | 08/12/ | Surgery | | Tay Chand MD | Right total hip | | 2019 | | | | arthroplasty | +--------+ + + + + | 08/12/ | Anesthesia | | Wesly Armenta | | | 2019 | Event | | MD Bart | | +--------+ + + + + | 08/12/ | Hospital | | Tay Chand MD | Status post total | | 2019 - | Encounter | | | hip replacement, | | | | | | right (Primary Dx); | | 08/13/ | | | | Obstructive sleep | | 2019 | | | | apnea with nocturnal | | | | | | hypoxemia | +--------+ + + + + | 08/11/ | Telephone | | Radha Ricks, | Patient Education | | 2019 | | | RN | | +--------+ + + + + from Last 3 Months Immunizations + + + + | Name | Administration Dates | Next Due | + + + + | INFLUENZA PF | 03/03/2019, 01/01/2018 | | | QUAD(PED/ADOL/ADULT) | | | | ,PSKT or VIAL | | | + + + + | INFLUENZA QUADR | 11/27/2016 | | | W/PRES | | | | (PED/ADOL/ADULT) | | | | MULTIDOSE | | | + + + + | TDAP, (ADOL/ADULT) | 05/15/2018 | | + + + + | ZOSTER NON-LIVE | 06/21/2017, 04/09/2017 | | | (MERLINIX) | | | + + + + Family History + + +---------+ + | Medical History | Relation | Name | Comments | + + +---------+ + | Diabetes | Brother | | | + + +---------+ + | High blood pressure | Brother | | | + + +---------+ + | High blood pressure | Child | | | + + +---------+ + | No known problems | Child | | | + + +---------+ + | Diabetes | Father | Jessee | | | | | Divine | | + + +---------+ + | Diabetes, NIDDM | Father | Jessee | | | | | Divine | | + + +---------+ + | Hearing loss | Father | Jessee | | | | | Divine | | + + +---------+ + | Heart disease | Father | Jessee | age 85 | | | | Divine | | + + +---------+ + | High blood pressure | Father | Jessee | | | | | Divine | | + + +---------+ + | Other (see comment) | Father | Jessee | Tremor | | | | Divine | | + + +---------+ + | Colon cancer | Maternal | | | | | Grandmoth | | | | | er | | | + + +---------+ + | Cancer | Mother | Zehra | | | | | Divine | | + + +---------+ + | Lung cancer | Mother | Zehra | age 65 | | | | Divine | | + + +---------+ + | Diabetes | Sister | | | + + +---------+ + | High blood pressure | Sister | | | + + +---------+ + | Other (see comment) | Sister | | Tremor | + + +---------+ + | Diabetes | Sister | Kylee | | | | | Divine | | + + +---------+ + | High blood pressure | Sister | Kylee | | | | | Divine | | + + +---------+ + | High blood pressure | Sister | Airam | | | | | Divine | | + + +---------+ + + +---------+ + + | Relation | Name | Status | Comments | + +---------+ + + | Brother | | Other | Status Unknown | + +---------+ + + | Child | | Alive | | + +---------+ + + | Child | | Alive | | + +---------+ + + | Father | Jessee | | | | | Divine | (Age | | | | | 79) | | + +---------+ + + | Maternal Grandmother | | | | + +---------+ + + | Mother | Zehra | | | | | Divine | (Age | | | | | 64) | | + +---------+ + + | Sister | | Alive | | + +---------+ + + | | Kylee | | | | | Divine | | | + +---------+ + + | Sister | Airam | | | | | Divine | | | + +---------+ + + Social History + +-------+ +--------+------+ [...] on file | | + + + Last Filed Vital Signs + + + + + | Vital Sign | Reading | Time Taken | Comments | + + + + + | Blood Pressure | 97/50 | 08/14/2019 7:55 AM | | | | | PDT | | + + + + + | Pulse | 67 | 08/14/2019 8:36 AM | | | | | PDT | | + + + + + | Temperature | 36.7 C (98 F) | 08/14/2019 7:55 AM | | | | | PDT | | + + + + + | Respiratory Rate | 20 | 08/14/2019 8:36 AM | | | | | PDT | | + + + + + | Oxygen Saturation | 90% | 08/14/2019 8:36 AM | | | | | PDT | | + + + + + | Inhaled Oxygen | - | - | | | Concentration | | | | + + + + + | Weight | 119.3 kg (263 lb 0.1 | 08/13/2019 6:17 AM | | | | oz) | PDT | | + + + + + | Height | 177.8 cm (5' 10") | 08/13/2019 6:17 AM | | | | | PDT | | + + + + + | Body Mass Index | 37.74 | 08/13/2019 6:17 AM | | | | | PDT | | + + + + + Plan of Treatment + + + + + | Health Maintenance | Due Date | Last | Comments | | | | Done | | + + + + + | Adult Annual | | 05/16/19 | | | Wellness Visit | 0 | 19, | | | | | 05/12/19 | | | | | 18 | | + + + + + | Vaccine: Influenza | | 03/03/19 | | | (#1) | 0 | 20, | | | | | 01/02/20 | | | | | 18, | | | | | 11/28/19 | | | | | 17 | | + + + + + | Colorectal Cancer | | 03/03/19 | | | Screening | 1 | 11 | | | (Colonoscopy) | | | | + + + + + | Med Mgmt: Cr | | 03/03/19 | | | | 1 | 20, | | | | | 08/27/19 | | | | | 19, | | | | | 05/16/19 | | | | | 19, | | | | | Addition | | | | | al | | | | | history | | | | | exists | | + + + + + | Med Mgmt: K | | 03/03/19 | | | | 1 | 20, | | | | | 08/27/19 | | | | | 19, | | | | | 05/16/19 | | | | | 19, | | | | | Addition | | | | | al | | | | | history | | | | | exists | | + + + + + | Med Mgmt: Na | | 03/03/19 | | | | 1 | 20, | | | | | 08/27/19 | | | | | 19, | | | | | 05/16/19 | | | | | 19, | | | | | Addition | | | | | al | | | | | history | | | | | exists | | + + + + + | Med Mgmt: eGFR | | 03/03/19 | | | | 1 | 20, | | | | | 08/27/19 | | | | | 19, | | | | | 05/16/19 | | | | | 19, | | | | | Addition | | | | | al | | | | | history | | | | | exists | | + + + + + | Med Mgmt: HCT | | 08/14/19 | | | | 1 | 20, | | | | | 03/03/19 | | | | | 20, | | | | | 05/16/19 | | | | | 19, | | | | | Addition | | | | | al | | | | | history | | | | | exists | | + + + + + | Med Mgmt: HGB | | 08/14/19 | | | | 1 | 20, | | | | | 01/13/20 | | | | | 20, | | | | | 05/16/19 | | | | | 19, | | | | | Addition | | | | | al | | | | | history | | | | | exists | | + + + + + | Medication | | 08/14/19 | | | Management | 1 | 20 | | + + + + + | Vaccine: | | 05/16/19 | | | Dtap/Tdap/Td (2 - | 9 | 19 | | | Td) | | | | + + + + + | Vaccine: Zoster | Completed | 06/22/19 | | | | | 18, | | | | | 04/09/19 | | | | | 18 | | + + + + + | Hepatitis C | Completed | 05/16/19 | | | Screening | | 19 | | + + + + + Implants + +--------+--------+ +--------+--------+--------+ | Implanted | Type | Area | Manufacture | Device | Shelf | Model | | | | | r | | Expira | / | | | | | | Identi | tion | Serial | | | | | | fier | Date | / Lot | + +--------+--------+ +--------+--------+--------+ | Shell Acet Pps G7 56f Ltd - | Generi | Left: | [place] - | | 05/14/ | [id number] | | [id number]: Qty: 1 on | c | Hip | ZIMM | | 2027 | 665 / | | 06/07/2017 by Tay Chand | | | | | | /[id number] | | MD Zenon at [facility] | | | | | | 29 | | [facility] | | | | | | | + +--------+--------+ +--------+--------+--------+ | Imp Hip Stem Dst Tprlc Std 12 | Generi | Left: | [place] - | | 01/13/ | 51-103 | | - [id number]: Qty: 1 | c | Hip | ZIMM | | 2025 | 120 / | | on 06/07/2017 by Mannie | | | | | | /[id number] | | Tay Yarbrough MD at [facility] | | | | | | 72 | | [facility] | | | | | | | + +--------+--------+ +--------+--------+--------+ | Imp Hip Lnr Arcmxl 36 F G7 | Generi | Left: | [place] - | | 12/26/ | [id number] | | Ronald - [id number]: | c | Hip | ZIMM | | 2021 | 741 / | | Qty: 1 on 06/07/2017 by | | | | | | /[id number] | | Tay Chand MD at [facility] | | | | | | 40 | | [facility] | | | | | | | | CENTER | | | | | | | + +--------+--------+ +--------+--------+--------+ | Imp Hip Fem Hd Bolx Pls3 36mm | Generi | Left: | [place] - | | 11/24/ | 12-115 | | - [id number]: Qty: 1 | c | Hip | ZIMM | | 2026 | 122 / | | on 06/07/2017 by Mannie, | | | | | | /[id number] | | Tay Yarbrough MD at [facility] | | | | | | 49 | | [facility] | | | | | | | + +--------+--------+ +--------+--------+--------+ | Shell Acet Pps G7 56f Ltd - | Generi | Right: | [place] - | | 11/12/ | [id number] | | [id number]: Qty: 1 | c | Hip | ZIMM | | 9 | 665 / | | on 08/13/2019 by Tay Chand | | | | | | /[id number] | | MD Zenon at [facility] | | | | | | 01 | | [facility] | | | | | | | + +--------+--------+ +--------+--------+--------+ | Imp Hip Cap Stem Dst Tprlc 13 | Generi | Right: | [place] - | | 08/05/ | 51-103 | | - [id number]: Qty: | c | Hip | ZIMM | | 2027 | 130 / | | 1 on 08/13/2019 by Mannie, | | | | | | /[id number] | | Tay Yarbrough MD at [facility] | | | | | | 72 | | [facility] | | | | | | | + +--------+--------+ +--------+--------+--------+ | Screw Bone Trilogy 6.5x25mm - | Screw | Left: | [place] - | | / | 00-625 | | [id number]: Qty: 1 | | Hip | ZIMM | | 2027 | 0-065- | | on 06/07/2017 by Tay Chand | | | | | | 25 / | | MD Zenon at [facility] | | | | | | /[id number] | | [facility] | | | | | | 585 | + +--------+--------+ +--------+--------+--------+ | Screw Bone Trilogy 6.5x40mm - | Screw | Right: | [place] - | | 04/18/ | 00-625 | | [id number]: Qty: 1 | | Hip | ZIMM | | 2030 | 0-065- | | on 08/13/2019 by Tay Chand | | | | | | 40 / | | MD Zenon at [facility] | | | | | | /[id number] | | [facility] | | | | | | 816 | + +--------+--------+ +--------+--------+--------+ | Head Fem Ceram 36/Pls3 T1 - | | Right: | [place] - | | 04/27/ | 650-06 | | [id number]: Qty: 1 | | Hip | ZIMM | | 2029 | 62 / | | on 08/13/2019 by Tay Chand | | | | | | /[id number] | | MD Zenon at [facility] | | | | | | 57 | | [facility] | | | | | | | + +--------+--------+ +--------+--------+--------+ | G7 Acetabular System | | Right: | | | 10/19/ | [id number] | | Vivacit-E Vitamin E Highly | | Hip | | | 2023 | 06 / | | Crosslinked Polyethylene | | | | | | /[id number] | | LinerImplanted: Qty: 1 on | | | | | | 397 | | 08/13/2019 by Tay Chand, | | | | | | | | at [facility] | | | | | | | | [facility] | | | | | | | + +--------+--------+ +--------+--------+--------+ Procedures + +--------+ + + + | Procedure Name | Priori | Date/Time | Associated Diagnosis | Comments | | | ty | | | | + +--------+ + + + | XR HIP RIGHT 2-3 | Routin | 08/21/2019 | | Results for this | | VIEWS | e | 12:00 AM | | procedure are in the | | | | PDT | | results section. | + +--------+ + + + | PERFORM HOME O2 | Routin | 08/14/2019 | | | | EVALUATION | e | 8:58 AM | | | | | | PDT | | | + +--------+ + + + | EXTRA GREEN TOP TUBE | Routin | 08/14/2019 | | Results for this | | | e | 5:26 AM | | procedure are in the | | | | PDT | | results section. | + +--------+ + + + | HEMOGLOBIN AND | Routin | 08/14/2019 | | Results for this | | HEMATOCRIT | e | 5:26 AM | | procedure are in the | | | | PDT | | results section. | + +--------+ + + + | RESPIRATORY THERAPY | Routin | 08/13/2019 | | | | COMMUNICATION | e | 4:18 PM | | | | | | PDT | | | + +--------+ + + + | XR PELVIS 1 OR 2 VW | STAT | 08/13/2019 | | Results for this | | | | 11:00 AM | | procedure are in the | | | | PDT | | results section. | + +--------+ + + + | XR PELVIS 1 OR 2 VW | Routin | 08/13/2019 | | Results for this | | | e | 9:43 AM | | procedure are in the | | | | PDT | | results section. | + +--------+ + + + | ANE AIRWAY NOTE | Routin | 08/13/2019 | | Results for this | | | e | 9:08 AM | | procedure are in the | | | | PDT | | results section. | + +--------+ + + + | ARTHROPLASTY HIP | | 08/13/2019 | Unilateral primary | | | | | 8:38 AM | osteoarthritis, | | | | | PDT | left hip | | + +--------+ + + + +---+--------+ | | | | | Specia | | | l | | | Needs | | | | | | [place] | | | total | | | hip | | | setExt | | | ernal | | | COVID | | | test - | | | [facility] | +---+--------+ from Last 3 Months Results XR Hip Right 2-3 Views (08/21/2019 12:00 AM PDT) + + | Specimen | + + | | + + + + + | Narrative | Performed At | + + + | External films for comparison only | [facility] | | | | | No results will be in the chart. | | + + + + +---------+ + + | Performing | Address | City/State/Zipcode | Phone Number | | Organization | | | | + +---------+ + + | [facility] | | | | + +---------+ + + Extra Green Top Tube (08/14/2019 5:26 AM PDT) + +-------+ + + + | Component | Value | Ref Range | Performed | Pathologist | | | | | At | Signature | + +-------+ + + + | Extra Green | Done | | [facility] | | | Top Tube | | | [facility] | | | | | | [facility] | | | | | | [facility] - | | | | | | LABORATORY | | + +-------+ + + + + + | Specimen | + + | Blood | + + + + + + + | Performing | Address | City/State/Zipcode | Phone Number | | Organization | | | | + + + + + | [facility] | [address] | [place] | [phone] | | [facility] | | [address] | | | - LABORATORY | | | | + + + + + Hemoglobin and Hematocrit (08/14/2019 5:26 AM PDT) + + + + + + | Component | Value | Ref Range | Performed | Pathologist | | | | | At | Signature | + + + + + + | Hematocrit | 32.3 (L) | 40.0 - 51.0 % | [facility] | | | | | | [facility] | | | | | | MEDICAL | | | | | | C[facility] - | | | | | | LABORATORY | | + + + + + + | Hemoglobin | 10.7 (L) | 13.5 - 18.0 | [facility] | | | | | g/dL | [facility] | | | | | | MEDICAL | | | | | | CENTER - | | | | | | LABORATORY | | + + + + + + + + | Specimen | + + | Blood | + + + + + + + | Performing | Address | City/State/Zipcode | Phone Number | | Organization | | | | + + + + + | [facility] | [address] | [place] | [phone] | | [facility] | | [address] | | | - LABORATORY | | | | + + + + + XR Pelvis 1 or 2 Vw (08/13/2019 11:00 AM PDT)Only the most recent of 2 results within the period is included. + + | Specimen | + + | | + + + + + | Impressions | Performed At | + + + | Interval right hip arthroplasty. Electronically signed by Sergio | [facility] | | MD Tom 08/13/2019 12:48 PM | | + + + + + + | Narrative | Performed At | + + + | XR PELVIS 1 OR 2 VW 08/13/2019 11:00 AM HISTORY: post op. | [facility] | | COMPARISON: Multiple priors. FINDINGS: There has been interval | | | placement of hardware for right hip arthroplasty that is intact. | | | Postoperative changes are seen in the proximal thigh that include gas | | | and judson. Intact left hip arthroplasty hardware is seen. Bone | | | mineralization is normal. Visualized pelvis demonstrates no acute | | | findings. There clips in the scrotal region. | | + + + + + | Procedure Note | + + | Francisco, Rad Results In - 08/13/2019 12:52 PM PDT XR PELVIS 1 OR 2 VW 08/13/2019 11:00 AM | | | | HISTORY: post op. | | | | COMPARISON: Multiple priors. | | | | FINDINGS: | | There has been interval placement of hardware for right hip | | arthroplasty that is intact. Postoperative changes are seen in the | | proximal thigh that include gas and judson. Intact left hip | | arthroplasty hardware is seen. Bone mineralization is normal. | | Visualized pelvis demonstrates no acute findings. There clips in the | | scrotal region. | | | | IMPRESSION: | | Interval right hip arthroplasty. | | | | Electronically signed by Sergio Santos MD 08/13/2019 12:48 PM | + + + +---------+ + + | Performing | Address | City/State/Zipcode | Phone Number | | Organization | | | | + +---------+ + + | [facility] | | | | + +---------+ + + Airway (08/13/2019 9:08 AM PDT) + + + | Narrative | Performed At | + + + | Wesly Armenta MD 08/13/2019 9:09 AM Anesthesia | | | Airway Placement 08/13/2019 8:43 AM Preprocedure check: patient | | | identified, oxygen, airway assessed, patient reassessment prior to | | | induction, airway equipment checked and suction Rapid Sequence | | | Induction: no Mask ventilation: easy with oral airway External | | | maneuver: elevated head of bed and BURP Successful technique: Mac | | | Laryngoscope blade size: 4 Airway grade: 2a (Partial view of | | | glottis) Other equipment: stylette Attempts: 1 Airway type: | | | endotracheal Size: 7.5 Cuffed: cuffed Route, reference point: right | | | side of mouth Tube depth: 23 cm Tube secured with: adhesive tape | | | Trauma: none Tube placement verification: bilateral chest rise, equal | | | bilateral breath sounds and carbon dioxide detection Performing | | | provider: Wesly Armenta MD Authorizing provider: Wesly Arriaga | | | MD Geovany Please see intraoperative grid for any | | | additional medication documentation. | | + + + from Last 3 Months Insurance + +--------+ +--------+ +---------+--------+ | Payer | Benefi | Subscriber | Effect | Phone | Address | Type | | | t Plan | ID | [place] | | | | | | / | | Dates | | | | | | Group | | | | | | + +--------+ +--------+ +---------+--------+ | MEDICARE | MEDICA | [id number] | 10/21/19 | [phone] | | Medica | | | RE | | 19-Pre | 5 | | re | | | PART A | | sent | | | | | | AND B | | | | | | + +--------+ +--------+ +---------+--------+ | AARP | AARP | [id number] | 02/19/19 | [phone] | | Indemn | | | MDCR | | 20-Pre | 0 | | ity | | | SUPPL | | sent | | | | + +--------+ +--------+ +---------+--------+ + +--------+ +--------+ + + | Guarantor Name | Accoun | Relation to | Date | Phone | Billing Address | | | t Type | Patient | of | | | | | | | | | | + +--------+ +--------+ + + | Patrice Interiano | Person | Self [birth year] | [address] | | | jud/Tello | | 1955 | [phone] | [place] [id number] | | | [place] | | | 2 (Home) | | + +--------+ +--------+ + + | Patrice Interiano | Person | Self [birth year] | [address] | | | jud/[place] | | 1956 | [phone] | [place] [id number] | | | [place] | | | 2 (Home) | | + +--------+ +--------+ + + Advance Directives + + + + + | Type | Date Recorded | Patient | Explanation | | | | 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
--- OUTSIDE RECORDS SUMMARY | ~2019-11-12 | XMS | Encounter Summary ---
Demographics + + + | Address | [address] | | | [place] [address] | + + + | Home Phone | | + + + | Preferred Language | Unknown | + + + | Marital Status | | + + + | Mosque Affiliation | Unknown | + + + | Race | White | + + + | Ethnic Group | Not or | + + + Author + + + | Author | [facility] | | | and Brianana | + + + | Organization | [facility] | | | and [...] Team Providers + +------+ + | Care Programmer Engineering And Scientific Name | Role | Phone | + [...] Description | +--------+--------+ + + + | 09/17/ | Refill | [facility] [place] [facility] | Shaan Coguhlin MD | Medication Refill | | 2019 | | MEDICINE [address] | [address] [facility] | | | | | [place], | [facility] [place] | | | | | [place] [address] | [address] | | | | | [phone] | | | +--------+--------+ + + + [...]
--- OUTSIDE RECORDS SUMMARY | ~2019-11-12 | XMS | Encounter Summary ---
Demographics + + + | Address | [address] | | | [place] [address] | + + + | Home Phone | | + + + | Preferred Language | Unknown | + + + | Marital Status | | + + + | Roman Catholic Affiliation | Unknown | + + + | Race | White | + + + | Ethnic Group | Not or | + + + Author + + + | Author | [facility] | | | and Brianana | + + + | Organization | [facility] | | | [...] Team Providers + +------+ + | Care Technology Applications Teacher Name | Role | Phone | + +------+ + | Isaac Miranda MD | PCP | | + +------+ + Reason for Visit Service/Procedure (Urgent) +--------+--------+ + + + + | Status | Reason | Specialty | Diagnoses / | Referred By | Referred To | | | | | Procedures | Contact | Contact | +--------+--------+ + + + + | Closed | | Radiology | Diagnoses | | [facility] | | | | | Lumbar | [place], | [address] | | | | | radiculopath | Stas Gavin MD | [place], | | | | | y | [address] | [place] | | | | | Procedures | [place] | [address] | | | | | IN INJECT | [place], [place] | Phone: | | | | | ANES/STEROID | [address] | [phone] | | | | | FORAMEN | Phone: | Fax: | | | | | LUMBAR/SACRA | [phone] | [phone] | | | | | L W IMG | Fax: | | | | | | GUIDE ,1 | [phone] | | | | | | LEVEL IN | | | | | | | INJECT | | | | | | | ANES/STEROID | | | | | | | FORAMEN | | | | | | | LUMBAR/SACRA | | | | | | | L W IMG | | | | | | | GUIDE ,EA | | | | | | | ADD LEVEL | | | | | | | IN | | | | | | | TRIAMCINOLON | | | | | | | E ACET INJ | | | | | | | NOS, 10 MG | | | | | | | Appt 6/6- | | | | | | | Left | | | | | | | L2-L3,L3-L4 | | | | | | | TFESI | | | +--------+--------+ + + + + Encounter Details +--------+ + + + + | Date | Type | Department | Care Team | Description | +--------+ + + + + | 07/25/ | Hospital | [facility] | Greg, | Lumbar radiculopathy | | 2017 | Encounter | MED CTR XRAY [address] | [place] [address]rakash [address] | | | | | [place] | [facility] [address] | | | | | [place] [address] | [place] [address] | | | | | [phone] | [phone] | | | | | | | | | | | | Kiln FiremanIrvin | | | | | | [place] | | +--------+ + + + + Social History + +-------+ +--------+------+ | Tobacco Use | Types | Packs/Day | Years | Date | | | | | Used | | + +-------+ +--------+------+ | Former Smoker | | | | | + [...] this encounter Last Filed Vital Signs + +---------+ + + | Vital Sign | Reading | Time Taken | Comments | + +---------+ + + | Blood Pressure | 140/97 | 07/25/2016 1:00 PM | | | | | PDT | | + +---------+ + + | Pulse | 63 | 07/25/2016 1:00 PM | | | | | PDT | | + +---------+ + + | Temperature | - | - | | + +---------+ + + | Respiratory Rate | - | - | | + +---------+ + + | Oxygen Saturation | - | - | | + +---------+ + + | Inhaled Oxygen | - | - | | | Concentration | | | | + +---------+ + + | Weight | - | - | | + +---------+ + + | Height | - | - | | + +---------+ + + | Body Mass Index | - | - | | + +---------+ + + documented in this encounter Medications at Time of Discharge [...] + + +---------+ + + | acetaminophen ([facility] | Take 1,000 mg by | | 0 | | | | 8 HOUR PAIN RELIEF) | mouth every 8 hours | | | | 8 | | 650 MG CR tablet | as needed. | | | | | + + + +---------+ + + | | as needed. | | 0 | 04/20/19 | | | acetaminophen-codein | | | | 17 | 7 | | e (TYLENOL #3) | | | | | | | 300-30 mg per tablet | | | | | | + + + +---------+ + + | albuterol (PROAIR | Inhale 2 puffs into | | 0 | | | | HFA) 90 mcg/puff | the lungs every 6 | | | | 8 | | inhaler | hours as needed for | | | | | | | Wheezing. | | | | | + + + +---------+ + + | gabapentin | Take 600 mg by mouth | | 0 | 04/26/19 | | | (NEURONTIN) 300 mg | 4 times daily. | | | 17 | 7 | | capsule | | | | | | + + + +---------+ + + | | Daily. | | 11 | 06/16/19 | | | hydroCHLOROthiazide | | | | 17 | 7 | | (HYDRODIURIL) 12.5 | | | | | | | MG tablet | | | | | | + + + +---------+ + + | lisinopril | Take 40 mg by mouth | | 0 | | | | (PRINIVIL, ZESTRIL) | Daily. | | | | 7 | | 20 mg tablet | | | | | | + + + +---------+ + + | METHOCARBAMOL PO | Take 375 mg by mouth | | 0 | | | | | as needed. | | | | 7 | + + + +---------+ + + | nadolol (CORGARD) | Take 40 mg by mouth | | 0 | | | | 80 MG tablet | Daily. | | | | 7 | + + + +---------+ + + | pramipexole | Take 0.5 mg by mouth | | 0 | | | | (MIRAPEX) 0.5 MG | Daily. | | | | 7 | | tablet | | | | | | + + + +---------+ + + | sertraline | Take 50 mg by mouth | | 0 | | | | (ZOLOFT) 50 mg | Daily. | | | | 8 | | tablet | | | | | | + + + +---------+ + + | terazosin (HYTRIN) | Take 5 mg by mouth | | 6 | 06/25/19 | | | 5 mg capsule | Daily. | | | 17 | 7 | + + + +---------+ + + | tiZANidine | Take 4 mg by mouth | | 5 | 05/23/19 | | | (ZANAFLEX) 4 mg | every 8 hours as | | | 17 | 7 | | tablet | needed. | | | | | + + + +---------+ + + documented as of this encounter Plan of Treatment Not on filedocumented as of this encounter Procedures + +--------+ + + + | Procedure Name | Priori | Date/Time | Associated Diagnosis | Comments | | | ty | | | | + +--------+ + + + | FL EPIDURAL STEROID | Routin | 07/25/2016 | Lumbar | Results for this | | INJECTION LUMBAR | e | 12:55 PM | radiculopathy | procedure are in the | | TRANSFORAMINAL | | PDT | | results section. | + +--------+ + + + documented in this encounter Results FL CRISTINE Lumbar Transforaminal (07/25/2016 12:55 PM PDT) + + | Specimen | + + | | + + + + ---+ | Narrative | Performed At | + + ---+ | 07/25/2016 | [facility] | | Transforaminal Epidural Steroid Injections Diagnosis: Lumbar | [facility] | | radiculopathy ICD-10 Code M54.16 Patrice Interiano presents to the | [facility] | | fluoroscopy suite for fluoroscopically-guided left L2-L3 and left | - IMAGING | | L3-L4 transforaminal epidural steroid injections as part of | | | conservative management for chronic pain with lumbar radiculopathy and | | | degenerative disk disease. After informed consent was obtained, the | | | patient lay in the prone position on the fluoroscopy table. The areas | | | were identified under fluoroscopic guidance. The areas were prepped | | | and draped in sterile fashion. A 25-gauge, 1.5-inch needle was | | | inserted into each region and approximately 3 mL of buffered 1% | | | lidocaine was infused. Then, a 22-gauge spinal needle was inserted | | | into the posterior superior transforaminal space at each level and | | | advanced into the epidural space under fluoroscopic guidance. | | | Confirmation into the epidural space was obtained with infusion of | | | approximately 1 mL of Omnipaque contrast which showed epidural flow as | | | well as nerve sheath flow. Then, a combination of 2 mL of 1% | | | lidocaine and 2 mL of 6 mg/mL Celestone was infused, divided between | | | the two levels. The patient tolerated the procedure well without | | | complications. Pre- and post-procedure blood pressures were stable. | | | The patient was given verbal as well as written follow-up | | | instructions. Prior to the start of the procedure, the following were | | | performed and/or verified, including correct patient identity, | | | correct site/side marked and visible, agreement on the procedure to be | | | done, correct patient positioning and an accurate procedure consent | | | form. Any safety precautions based on clinical history and/or | | | medication use have been addressed. I personally performed the | | | procedure above. Estimated blood loss: MinimalComplications: | | | NoneFindings: As expectedAnesthesia: Local 1% Lidocaine | | |visible, agreement on the procedure to be done, correct patient | | |positioning and an accurate procedure consent form. Any safety precautions | | |based on clinical history and/or medication use have been addressed. I | | |personally performed the procedure above. | | | | | |Estimated blood loss: Minimal | | |Complications: None | | |Findings: As expected | | |Anesthesia: Local 1% Lidocaine | | | | | + + ---+ + + + + + | Performing | Address | City/State/Zipcode | Phone Number | | Organization | | | | + + + + + | [facility] | [address] | [place] | [phone] | | [facility] | | [address] | | | - IMAGING | | | | + + + + + documented in this encounter Visit Diagnoses + + | Diagnosis | + + | Lumbar radiculopathy Thoracic or lumbosacral neuritis or radiculitis, unspecified | + + documented in this encounter Administered Medications + +--------+ +-------+------+------+ | Medication Order | MAR | Action | Dose | Rate | Site | | | Action | Date | | | | + +--------+ +-------+------+------+ | betamethasone (CELESTONE | Given | 07/26/19 | 12 mg | | | | SOLUSPAN) injection 12 mg 12 mg, | | 17 1:05 | | | | | Other, ONCE, Michael 07/25/16 at 1300, | | PM PDT | | | | | For 1 dose, Shake well. Not for | | | | | | | IV use., | | | | | | + +--------+ +-------+------+------+ +---+---+ | | | +---+---+ + +-------+ +-------+---+---+ | iohexol (OMNIPAQUE 300) 300 | Given | 07/26/19 | 4 mLs | | | | mg/mL injection 4 mL 4 mL, | | 17 1:00 | | | | | Other, ONCE, Michael 07/25/16 at 1300, | | PM PDT | | | | | For 1 dose | | | | | | + +-------+ +-------+---+---+ +---+---+ | | | +---+---+ + +-------+ +-------+---+---+ | lidocaine (PF) 1% injection 2 | Given | 07/26/19 | 2 mLs | | | | mL 2 mL, Other, ONCE, Michael 07/25/16 | | 17 1:05 | | | | | at 1300, For 1 dose | | PM PDT | | | | + +-------+ +-------+---+---+ +---+---+ | | | +---+---+ + +-------+ +--------+---+---+ | lidocaine buffered 1% injection | Given | 07/26/19 | 10 mLs | | | | 10 mL 10 mL, Other, ONCE, [facility] 12:55 | | | | | 07/25/16 at 1300, For 1 dose | | PM PDT | | | | + +-------+ +--------+---+---+ +---+---+ | | | +---+---+ documented in this encounter"
--- OUTSIDE RECORDS SUMMARY | ~2019-11-12 | XMS | Encounter Summary ---
Demographics + + + | Address | [address] | | | [place] [address] | + + + | Home Phone | | + + + | Preferred Language | Unknown | + + + | Marital Status | | + + + | Synagogue Affiliation | Unknown | + + + | Race | White | + + + | Ethnic Group | Not or | + + + Author + + + | Author | [facility] | | | and Brianana | + + + | Organization | [facility] | | | [...] Team Providers + +------+ + | Care Carbide Operator Name | Role | Phone | + +------+ + | Santi Dumont MD | PCP | | + +------+ + Reason for Visit + +--------+ + | Reason | Onset | Comments | | | Date | | + +--------+ + | Dental Clearance | 11/12/ | | | | 2018 | | + +--------+ + Encounter Details +--------+ + + + + | Date | Type | Department | Care Team | Description | +--------+ + + + + | 11/12/ | Telephone | [facility] | Santi Dumont MD | Dental Clearance | | 2018 | | [facility] [address] | [address] [facility] | | | | | [place], | [place] | | | | | [place] [address] | [address] | | | | | [phone] | | | +--------+ + + + + Social History + +-------+ +--------+ + | Tobacco Use | Types | Packs/Day | Years | Date | | | | | Used | | + +-------+ +--------+ + | Former Smoker | | | | Quit: 02/18/2013 | + +-------+ +--------+ + + +---+---+ + | Smokeless Tobacco: | [...] this encounter Miscellaneous Notes Telephone Encounter - Magdalene Roper RN - 11/13/2018 4:10 PM PDTPatient sent Office Max message back confirming he received my voice message with MD cisse. Electronically s igned by Magdalene Roper RN at 11/13/2018 4:41 PM PDTTelephone Encounter - Parish Morgan - 11/13/2018 1:23 PM PDTPatient returned call. Please advise. elephone Encounter - Magdalene Roper RN - 11/13/2018 8:56 AM PDTCalled back to pt. Asked that he call back to Dr. Dumont's nurse. Maribel ctronically signed by Magdalene Roper RN at 11/13/2018 8:56 AM PDTTelephone Encounter - Santi Dumont MD - 11/12/2018 6:17 PM PDTPlease inform patient that dental cleaning ma y be done without stopping Eliquis. He does not need antibiotics prior to dental cleaning.E lectronically signed by Santi Dumont MD at 11/12/2018 6:17 PM PDTTelephone Encounter - Rainer cullen [place] - 11/12/2018 1:52 PM PDTPatient called stating since he has started Eliquis, p atient has not had a dental cleaning. Patient would like to know if he needs to stop medicat ion prior to having cleaning done? Or any anabiotics needed? Asked if you can not reach molina ent by phone, would like a [employer] message, please advise. documented in this encounter Plan of Treatment Not on filedocumented as of this encounter Visit Diagnoses Not on filedocumented in this encounter"
--- OUTSIDE RECORDS SUMMARY | ~2019-11-12 | XMS | Encounter Summary ---
Demographics + + + | Address | [address] | | | [place] [address] | + + + | Home Phone | | + + + | Preferred Language | Unknown | + + + | Marital Status | | + + + | Sabianism Affiliation | Unknown | + + + | Race | White | + + + | Ethnic Group | Not or | + + + Author + + + | Author | [facility] | | | and Brianana | + + + | Organization | [facility] | | | [...] Team Providers + +------+ + | Care Farm Worker Name | Role | Phone | + +------+ + | Santi Dumont MD | PCP | | + +------+ + Encounter Details +--------+ + + + + | Date | Type | Department | Care Team | Description | +--------+ + + + + | 06/08/ | Anesthesia | [facility] | Temo Ramires | | | 2018 | Event | [facility] SUR[facility] | MD Stephanie [address] | | | | | [address] [place] | [place], [place] | | | | | [place] [address] | [address] | | | | | [phone] | | | +--------+ + + + + Anesthesia Record + + + + + | Procedure Name | Responsible | Anesthesia Start | Anesthesia Stop Time | | | Anesthesiologist | Time | | + + + + + | [facility] | | | | | [facility] | | | | + + + + + + + | No events on file. | + + +------+ | Meds | +------+ + + + No medications | on file. | + + + + + | No agents on file. | + + + + | No blood administrations on file. | + + + + | No LDAs on file. | + + documented in this encounter Social History + +-------+ +--------+------+ | Tobacco [...]
--- OUTSIDE RECORDS SUMMARY | ~2019-11-12 | XMS | Encounter Summary ---
Demographics + + + | Address | [address] | | | [place] [address] | + + + | Home Phone | | + + + | Preferred Language | Unknown | + + + | Marital Status | | + + + | Protestant Affiliation | Unknown | + + + | Race | White | + + + | Ethnic Group | Not or | + + + Author + + + | Author | [facility] | | | and Brianana | + + + | Organization | [facility] | | | [...] Team Providers + +------+ + | Care Gear Grinding Machine Operator Name | Role | Phone | [...] | | MEDICINE [address] | [address] [facility] | | | | | [address] [place], | [place], [place] | | | | | [place] [address] | [address] | | | | | [phone] | | | +--------+--------+ + + + [...]
--- OUTSIDE RECORDS SUMMARY | ~2019-11-12 | XMS | Encounter Summary ---
Demographics + + + | Address | [address] | | | [place] [address] | + + + | Home Phone [...] Team Providers + +------+ + | Care County Superintendent [employer] Name | Role | Phone | + +------+ + | Isaac Miranda MD | PCP | | + +------+ + Encounter Details +--------+ + + + + | Date | Type | Department | Care Team | Description | +--------+ + + + + | 02/07/ | Orders Only | [facility] [place] | Mahendra Luna MD | S/P lumbar fusion | | 2011 | | NEUROSURGERY [address] | [address] | (Primary Dx) | | | | [address] | [place] [address] | | | | | [place] | [phone] | | | | | [address] | | | | | | [phone] | | | +--------+ + + + [...] filedocumented as of this encounter Visit Diagnoses + + | Diagnosis | + + | S/P lumbar fusion - Primary Arthrodesis status | + + documented in this encounter"
--- OUTSIDE RECORDS SUMMARY | ~2019-11-12 | XMS | Encounter Summary ---
Demographics + + + | Address | [address] | | | [place] [address] | + + + | Home Phone | | + + + | Preferred Language | Unknown | + + + | Marital Status | | + + + | Holiness Affiliation | Unknown | + + + | Race | White | + + + | Ethnic Group | Not or | + + + Author + + + | Author | [facility] | | | and [place] | + + + | Organization | [facility] | | | and [...] Team Providers + +------+ + | Care Dry Kiln Operator Name | Role | Phone | + +------+ + | Santi Dumont MD | PCP | | + +------+ + Reason for Visit Auth/Cert +--------+--------+ + + + + | Status | Reason | Specialty | Diagnoses / | Referred By | Referred To | | | | | Procedures | Contact | Contact | +--------+--------+ + + + + | | | | Diagnoses | | Mannie, | | | | | Unilateral | | Tay Yarbrough MD | | | | | primary | | [address] | | | | | osteoarthrit | | [address] | | | | | is, left hip | | [place], [place] | | | | | Procedures | | [address] | | | | | [place] TOTAL | | Phone: | | | | | HIP | | [phone] | | | | | ARTHROPLASTY | | Fax: | | | | | Right | | [phone] | | | | | total hip | | | | | | | arthroplasty | | | +--------+--------+ + + + + Encounter Details +--------+ + + + + | Date | Type | Department | Care Team | Description | +--------+ + + + + | 08/12/ | Anesthesia | JEANIE GUADARRAMA | Wesly Armenta | | | 2019 | Event | [facility] | MD [address] | | | | | [address] | [address] | | | | | [place] | [place] [address] | | | | | [address] | | | | | | [phone] | | | +--------+ + + + + Anesthesia Record + + + + + | Procedure Name | Responsible | Anesthesia Start | Anesthesia Stop Time | | | Anesthesiologist | Time | | + + + + + | Right total hip | Wesly Arriaga | 08/13/19 0835 | 08/13/19 1044 | | arthroplasty (Right | MD Geovany | | | | Hip) | | | | + + + + + +----+---+ + + | Da | T | Event | Comment | | te | i | | | | | m | | | | | e | | | +----+---+ + + | 06 | 0 | | | | /2 | 7 | | | | 4/ | 3 | | | | 20 | 7 | | | | 20 | | | | +----+---+ + + | | 0 | An Checkout | Pre-use anesthesia machine/equipment checkout. | | | 8 | | | | | 0 | | | | | 0 | | | +----+---+ + + | | 0 | An Start | | | | 8 | Data | | | | 3 | | | | | 5 | | | +----+---+ + + | | 0 | An Start | Reassessment prior to anesthesia induction/procedure. | | | 8 | | | | | 3 | | | | | 5 | | | +----+---+ + + | | 0 | Preoxygenat | | | | 8 | ed | | | | 4 | | | | | 0 | | | +----+---+ + + | | 0 | An | | | | 8 | Induction | | | | 4 | | | | | 1 | | | +----+---+ + + | | 0 | An | | | | 8 | Intubation | | | | 4 | | | | | 3 | | | +----+---+ + + | | 0 | AN Bite | | | | 8 | Block | | | | 4 | | | | | 5 | | | +----+---+ + + | | 0 | Antibiotic | | | | 8 | Given | | | | 4 | | | | | 7 | | | +----+---+ + + | | 0 | Pre-Procedu | | | | 9 | ral Timeout | | | | 0 | Completed | | | | 5 | | | +----+---+ + + | | 0 | First | | | | 9 | Inc/Proc St | | | | 0 | | | | | 6 | | | +----+---+ + + | | 0 | Quick Note | valsalva | | | 9 | | | | | 2 | | | | | 0 | | | +----+---+ + + | | 0 | Quick Note | Surgeon reaming | | | 9 | | | | | 2 | | | | | 9 | | | +----+---+ + + | | 1 | Breathing | | | | 0 | Spontaneous | | | | 2 | ly | | | | 0 | | | +----+---+ + + | | 1 | AN No | TOF 4/4 with sustained tetanus. | | | 0 | Residual | | | | 3 | NMB | | | | 0 | | | +----+---+ + + | | 1 | Moving | | | | 0 | Purposefull | | | | 3 | y | | | | 4 | | | +----+---+ + + | | 1 | Oropharynx | | | | 0 | Suctioned | | | | 3 | | | | | 5 | | | +----+---+ + + | | 1 | Extubation/ | | | | 0 | Airway LDA | | | | 3 | Removal | | | | 6 | | | +----+---+ + + | | 1 | an stop | | | | 0 | data | | | | 3 | | | | | 7 | | | +----+---+ + + | | 1 | An Stop | Patient handed off to recovery nurse. | | | 4 | | | | | 4 | | | +----+---+ + + +------+ | Meds | +------+ + + + | Name | Total | + + + | fentaNYL | 150 mcg | + + + | lidocaine 2% | 100 mg | + + + | propofol | 200 mg | + + + | ketamine | 50 mg | + + + | rocuronium | 30 mg | + + + | succinylcholine (ANECTINE) | 160 mg | | injection | | + + + | dexamethasone (PF) injection 10 | 6 mg | | mg/mL | | + + + | ceFAZolin (ANCEF, KEFZOL) 2 g in | 3 g | | sterile water 20 mL syringe (100 | | | mg/mL) | | + + + | tranexamic acid | 1,000 mg | + + + | ePHEDrine (AKOVAZ) injection 50 | 10 mg | | mg/mL | | + + + | glycopyrrolate (ROBINUL) | 0.8 mg | | injection (5 mL vial) | | + + + | neostigmine | 5 mg | + + + | lactated ringers (LR) infusion | 1,500 mL | + + + + + | Name | + + | N2O Flow Rate (L/Min) | + + | O2 Flow Rate (L/Min) | + + | Insp O2 | + + | Exp SEV | + + | Air Flow Rate (L/Min) | + + + + | No blood administrations on file. | + + +--------+ + + + | Type | Details | Placement | Removal | +--------+ + + + | Periph | 08/13/19; 0712; Left; Hand; | 08/13/19 0712 by | 08/14/19 1234 by | | eral | [id number] catheter system; | Jazmyn Goodrich RN | Gamaliel Caceres RN | | IV | 18 gauge, 1 1/2 in length; 1; | | | | | left forearm; distraction, | | | | | intradermal injection, comfort | | | | | positioning, tolerated well; | | | | | short term use; 08/14/19; 1234 | | | +--------+ + + + | Airway | Placement Date: 08/13/19; | 08/13/19 08 by | 08/13/19 1037 by | | | Placement Time: 842 (created via | Wesly Arriaga | Wesly Arriaga | | | procedure documentation); Mask | MD Geovany | MD Geovany | | | Ventilation: EZ w/OA; Airway | | | | | Grade: 2a; External Maneuvers: | | | | | BURP, elevated head of bed; | | | | | Successful Technique: Mac; | | | | | Laryngoscope Blade Size: 4; | | | | | Attempts: 1; Airway Type: | | | | | endotracheal; Size: 7.5; Airway | | | | | Tube Secured At: 23; Trauma: | | | | | none; Other Equipment: stylette; | | | | | Placement Check: exhaled CO2 | | | | | detection device, bilateral chest | | | | | rise, breath sounds equal | | | | | bilaterally; Removal Date: | | | | | 08/13/19; Removal Time: 1037 | | | +--------+ + + + | Wound | 08/13/19; 0936; Incision; Right; | 08/13/19 0936 by | 08/14/19 1235 by | | | hip; Healing; 08/14/19; 1235 | Jen Higginbotham RN | Gamaliel Caceres RN | +--------+ + + + documented in this encounter Social [...] + + documented as of this encounter OR Notes Anesthesia Postprocedure Evaluation - Wesly Armenta MD - 08/13/2019 6:06 PM PDTFo rmatting of this note might be different from the original. ANESTHESIA POSTANESTHESIA EVALUATION Patrice Interiano 64 y.o. male 1955 [id number] Patient delivered to PACU and vital signs immediately checked and assessed. Signout give n to BOILER OUT at bedside. Patient breathing spontaneously, appears comfortable, requiring hi s home CPAP to maintain O2 sat >95% Procedure(s) Right total hip arthroplasty (Right Hip) Cooperates? Yes Mental Status Performs simple tasks. Respiratory Satisfactory - Airway patent (self maintained). Cardiovascular Satisfactory - Blood pressure and heart rate acceptable Temperature Satisfactory Pain Satisfactory N/V Control Satisfactory Hydration Satisfactory - No signs of dehydration Adverse Events ADVERSE EVENTS: No adverse events Vitals Value Taken Time Temp 36.1 C (97 F) 08/13/19 1530 Pulse 64 08/13/19 1530 Resp 18 08/13/19 1530 BP 130/56 08/13/19 1530 Arterial Line BP Arterial Line BP 2 SpO2 96 % 08/13/19 1530 Electronically signed by Wesly Armenta MD 08/13/2019 6:06 PM PDT [facility] a t 08/13/2019 6:06 PM PDTAnesthesia Procedure Notes - Wesly Armenta MD - 08/13/2019 9:08 AM PDTAssociated Order(s): AirwayAnesthesia Airway Placement 08/13/2019 8:43 AM Preprocedure check: patient identified, oxygen, airway assessed, patient reassessment prior to induction, airway equipment checked and suction Rapid Sequence Induction: no Mask ventilation: easy with oral airway External maneuver: elevated head of bed and BURP Successful technique: Mac Laryngoscope blade size: 4 Airway grade: 2a (Partial view of glottis) Other equipment: stylette Attempts: 1 Airway type: endotracheal Size: 7.5 Cuffed: cuffed Route, reference point: right side of mouth Tube depth: 23 cm Tube secured with: adhesive tape Trauma: none Tube placement verification: bilateral chest rise, equal bilateral breath sounds and carbon dioxide detection Performing provider: Welsy Armenta MD Authorizing provider: Wesly Armenta MD Please see intraoperative grid for any additional medication documentation. nesthesia Prep rocedure Evaluation - Wesly Armenta MD - 08/13/2019 7:28 AM PDT ANESTHESIA PREANESTHESIA EVALUATION Patrice Interiano 64 y.o. male 1955 [id number] Procedure(s): Right total hip arthroplasty (Right Hip) Medical,anesthesia, drug, allergy histories reviewed, NPO status verified. ECG reviewed. Labs reviewed. (-) perioperative beta-nba/statin not given/taken, reason : not applicable/Not taking Beta-Nba. Review of Systems / Med History Anesthesia History No anesthesia complications except where noted below. (+) previous surgery or anesthesia. Cardiovascular 07/24/2019 EKG: Sinus rhythm ekg 2018 TTE: Conclusions Summary Left ventricle is normal in size and function. Ejection fraction is estimated at 65-70%. Diastolic parameters are within normal limits. Mitral valve is mildly thickened with trace insufficiency. Structurally normal tricuspid valve with mild insufficiency and peak velocity consistent with normal pulmonary pressures. Left atrium is mildly enlarged. Aortic root is mildly enlarged.. Exercise tolerance >4 METS. Pulmonary (+) sleep apnea.(+) Sleep apnea history/interventions: known. Gastrointestinal/Hepatic Negative except where noted below. Renal Chemistry Component Value Date/Time NA 138 03/03/2019 0917 K 3.7 03/03/2019 0917 CL 100 03/03/2019 0917 CO2 31 03/03/2019 0917 GLU 108 (H) 03/03/2019 0917 BUN 17 03/03/2019 0917 CREA 1.20 03/03/2019 0917 ANIONGAP 7 03/03/2019 0917 Component Value Date/Time CALCIUM 9.3 03/03/2019 0917 ALKPHOS 51 03/03/2019 0917 AST 42 (H) 03/03/2019 0917 ALT 69 (H) 03/03/2019 0917 TOTALPROTEIN 6.6 03/03/2019 0917 ALBUMIN 4.7 03/03/2019 0917 BILITOT 0.9 03/03/2019 0917 . Endocrine (+) obesity: BMI (30-39) Hematology/Other Lab Results Component Value Date WBC 5.5 03/03/2019 HCT 46.5 03/03/2019 MCV 93.4 03/03/2019 LABPLAT 178 12/07/2016 PLT 189 03/03/2019 . (+) coagulopathy (takes apixaban, last dose 08/08). Cancer Negative except where noted below. Neuromuscular Multiple lumbar spine surgeries. Previous L4-S1 interbody fusions. . (+) back pain. Psychology Negative except where noted below. Physical Exam Airway Thick neck MP II, TM >3 FB, Mouth opening >2 FB. Neck: full ROM, extends >30 degrees. Jaw protrus ion normal. Facial hair present: Yes Dental grossly normal except where noted below. CV Rhythm regular. Rate normal. (-) murmur. Pulm Clear to auscultation bilaterally. Neuro grossly normal. Anesthesia Plan ASA: 3 (chf, h/o PE on apixaban, DICKSON, HTN) Type: General. Induction: Intravenous. Potential problems: None anticipated. Monitors: Standard ASA monitors. Consent statement: Anesthetic plan, alternatives, risks and benefits discussed with patient. backache, , discussed risks to teeth, disability, drug reaction, heart problems, ICU placement, infectio n, muscle aches, nausea, pain, perioperative CV events, post-op intubation, respiratory even ts, sore throat, stroke, voice injury, delirium Blood transfusion concerns: None. Consenting person understands and agrees to proceed. PARQ. Anesthesia consent held with patient regarding risks as checked above. Discussed in detail risk vs benefit of spinal vs GA. Pt had spinal + GA. After careful discussion, pt refuses spinal anesthesia today and requests GETA. All of the patient's questions were answered. Patient understands, agrees and consents to proceed. Past Medical History: No date: Allergic rhinitis No date: Arthralgia of knee Comment: Patella, Tibia, Fibula No date: Benign prostatic hyperplasia without urinary obstruction No date: Cervical radiculopathy Comment: C3-C7 No date: Cervical spondylosis with myelopathy No date: Depression with anxiety No date: GERD (gastroesophageal reflux disease) 2000: GI bleed No date: [place] (hard of hearing) Comment: wears hearing aids No date: Hypertension No date: Left sided sciatica No date: Low back pain No date: Lumbar degenerative disc disease No date: Lumbar facet arthropathy Comment: MULTILEVEL No date: Lumbar spondylosis No date: Osteoarthritis, generalized No date: PE (pulmonary thromboembolism) (HCC) Comment: following lumbar spine surgery 2017 No date: Primary localized osteoarthrosis of left hip No date: Restless leg syndrome No date: Sleep apnea Comment: uses CPAP No date: Smokeless tobacco use No date: Spondylolisthesis of lumbar region No date: Tremor . documented in t his encounter Miscellaneous Notes Anesthesia Post-op Handoff - Wesly Armenta MD - 08/13/2019 10:43 AM PDT ANESTHESIA HANDOFF NOTE Patrice Interiano 64 y.o. male 1955 [id number] Right total hip arthroplasty (Right Hip) HANDOFF NOTE Handoff Protocol Used: post-procedure handoff checklist completed The following were completed during the transfer of care: 1. Identification of patient 2. Identification of responsible practitioner (primary service) 3. Discussion of pertinent medical history 4. Discussion of the surgical/procedure course (procedure, reason for surgery, procedure pe rformed) 5. Intraoperative anesthetic management and issues/concerns 6. Expectations/plans for the early post-procedure period 7. Opportunity for questions and acknowledgement of understanding of report from receiving team Patient Location: Phase I Condition: awake Airway/O2: CPAP personal. Multimodal analgesia: multimodal analgesia used between 6 hours prior to anesthesia start t o PACU discharge Two or more DICKSON mitigation strategies used: perioperative obstructive sleep apnea intervent ions applied The significant anesthesia concerns and VS in Epic were reviewed with the receiving team. Wesly Armenta MD 08/13/2019 10:43 AM PDT [facility] by Wesly Armenta MD a t 08/13/2019 10:44 AM PDTdocumented in this encounter Plan of Treatment Not [...] + + documented in this encounter Results Airway (08/13/2019 9:08 AM PDT) + + [...] medication documentation. | | + + + documented in this encounter Visit Diagnoses Not on filedocumented in this encounter Administered Medications + +---------+ +------+------+------+ | Medication Order | MAR | Action | Dose | Rate | Site | | | Action | Date | | | | + +---------+ +------+------+------+ | ceFAZolin (ANCEF, KEFZOL) 2 g | New Bag | 08/13/19 | 3 g | | | | in sterile water 20 mL syringe | | 20 8:47 | | | | | (100 mg/mL) 2 g, Intravenous, | | AM PDT | | | | | Prior to Incision, Starting Wed | | | | | | | 08/13/19 at 0438, For 1 dose, Keep | | | | | | | in refrigerator. Give IV push | | | | | | | over 3-5 minutes., Pre-op, | | | | | | | Indications: Surgical Prophylaxis | | | | | | + +---------+ +------+------+------+ +---+---+ | | | +---+---+ + +-------+ +------+---+---+ | dexamethasone (PF) 10 mg/mL | Given | 08/13/19 | 6 mg | | | | injection Intravenous, PRN, | | 20 9:00 | | | | | Starting 08/13/19 at 0900, | | AM PDT | | | | | Anesthesia Intra-op | | | | | | + +-------+ +------+---+---+ +---+---+ | | | +---+---+ + +-------+ +-------+---+---+ | ePHEDrine (AKOVAZ) 50 mg/mL | Given | 08/13/19 | 10 mg | | | | injection Intravenous, PRN, | | 20 8:41 | | | | | Starting 08/13/19 at 0841, | | AM PDT | | | | | Anesthesia Intra-op | | | | | | + +-------+ +-------+---+---+ +---+---+ | | | +---+---+ + +-------+ +--------+---+---+ | fentaNYL (PF) injection | Given | 08/13/19 | 50 mcg | | | | Intravenous, PRN, Starting Wed | | 20 10:15 | | | | | 08/13/19 at 0838, Anesthesia | | AM PDT | | | | | Intra-op | | | | | | + +-------+ +--------+---+---+ +-------+ +---------+---+---+ | Given | 08/13/19 | 100 mcg | | | | | 20 8:38 | | | | | | AM PDT | | | | +-------+ +---------+---+---+ +---+---+ | | | +---+---+ + +-------+ +--------+---+---+ | glycopyrrolate (DEREK) | Given | 08/13/19 | 0.8 mg | | | | injection Intravenous, PRN, | | 20 10:13 | | | | | Starting Sun08/13/19 at 1013, | | AM PDT | | | | | Anesthesia Intra-op | | | | | | + +-------+ +--------+---+---+ +---+---+ | | | +---+---+ + +-------+ +-------+---+---+ | ketamine 50 mg/mL injection | Given | 08/13/19 | 30 mg | | | | PRN, Starting Sun08/13/19 at | | 20 9:41 | | | | | 0905, Anesthesia Intra-op | | AM PDT | | | | + +-------+ +-------+---+---+ +-------+ +-------+---+---+ | Given | 08/13/19 | 20 mg | | | | | 20 9:05 | | | | | | AM PDT | | | | +-------+ +-------+---+---+ +---+---+ | | | +---+---+ + +---------+ +---+---+---+ | lactated ringers (LR) infusion | New Bag | 08/13/19 | | | | | at 10-100 mL/hr, Intravenous, | | 20 9:20 | | | | | CONTINUOUS, Starting 08/13/19 | | AM PDT | | | | | at 0645, TKO., Pre-op | | | | | | + +---------+ +---+---+---+ + + +--------+-------+ + | Continued by Anesthesia | 08/13/19 | | | | | | 20 8:35 | | | | | | AM PDT | | | | + + +--------+-------+ + | New Bag | 08/13/19 | 1,000 | 100 | Left Arm | | | 20 6:37 | mLs | mL/hr | | | | AM PDT | | | | + + +--------+-------+ + +---+---+ | | | +---+---+ + +-------+ +--------+---+---+ | lidocaine (PF) 2% injection | Given | 08/13/19 | 100 mg | | | | Intravenous, PRN, Starting Wed | | 20 8:41 | | | | | 08/13/19 at 0841, Anesthesia | | AM PDT | | | | | Intra-op | | | | | | + +-------+ +--------+---+---+ +---+---+ | | | +---+---+ + +-------+ +------+---+---+ | neostigmine (BLOXIVERZ) 1 mg/mL | Given | 08/13/19 | 5 mg | | | | injection Intravenous, PRN, | | 20 10:13 | | | | | Starting 08/13/19 at 1013, | | AM PDT | | | | | Anesthesia Intra-op | | | | | | + +-------+ +------+---+---+ +---+---+ | | | +---+---+ + +-------+ +--------+---+---+ | propofol (DIPRIVAN) injection | Given | 08/13/19 | 200 mg | | | | Intravenous, PRN, Starting Wed | | 20 8:41 | | | | | 08/13/19 at 0841, Anesthesia | | AM PDT | | | | | Intra-op | | | | | | + +-------+ +--------+---+---+ +---+---+ | | | +---+---+ + +-------+ +-------+---+---+ | rocuronium (ZEMURON) injection | Given | 08/13/19 | 30 mg | | | | Intravenous, PRN, Starting Wed | | 20 9:00 | | | | | 08/13/19 at 0900, Anesthesia | | AM PDT | | | | | Intra-op | | | | | | + +-------+ +-------+---+---+ +---+---+ | | | +---+---+ + +-------+ +--------+---+---+ | succinylcholine (ANECTINE) | Given | 08/13/19 | 160 mg | | | | injection Intravenous, PRN, | | 20 8:42 | | | | | Starting 08/13/19 at 0842, | | AM PDT | | | | | Anesthesia Intra-op | | | | | | + +-------+ +--------+---+---+ +---+---+ | | | +---+---+ + +-------+ + +---+---+ | tranexamic acid (CYKLOKAPRON) | Given | 08/13/19 | 1,000 mg | | | | injection Intravenous, | | 20 8:50 | | | | | Administer over 15 Minutes, PRN, | | AM PDT | | | | | Starting 08/13/19 at 0850, | | | | | | | Anesthesia Intra-op | | | | | | + +-------+ + +---+---+ +---+---+ | | | +---+---+ documented in this encounter"
--- OUTSIDE RECORDS SUMMARY | ~2019-11-12 | XMS | Encounter Summary ---
Demographics + + + | Address | [address] | | | [place] [address] | + + + | Home Phone | | + + + | Preferred Language | Unknown | + + + | Marital Status | | + + + | Jew Affiliation | Unknown | + + + | Race | White | + + + | Ethnic Group | Not or | + + + Author + + + | Author | [facility] | + + + | Organization | [facility] | + + + | Address | Unknown | + + + | Phone | Unavailable | + + + Support + + +---------+ + | Name | Relationship | Address | Phone | + + +---------+ + | Gely Interiano | ECON | Unknown | | + + +---------+ + Care Team Providers + +------+ + | Care Bi Technical Lead Name | Role | Phone | + +------+ + | Isaac Miranda MD | PCP | | + +------+ + Encounter Details +--------+ + + + + | Date | Type | Department | Care Team | Description | +--------+ + + + + | 06/25/ | Document-Sc | Health Information | Unknown . | | | 2011 | anned | Services [id number] | | | | | [address] | | | | | | Mailcode: [id number] | | | | | | [facility] | | | | | | [place], [place] | | | | | | [address] | | | | | | [phone] | | | +--------+ + + + + Social History + +-------+ +--------+------+ | Tobacco Use | Types | Packs/Day | Years | Date | | | | | Used | | + +-------+ +--------+------+ | Never Assessed | | | | | + +-------+ [...] | + +--------+ + + + | RADIOLOGY | | 06/26/2011 | | Results for this | | | | 12:00 AM | | procedure are in the | | | | PDT | | results section. | + +--------+ + + + documented in this encounter Results RADIOLOGY (06/26/2011 12:00 AM PDT) + + + | Narrative | Performed At | + + + | | | + + + documented in this encounter Visit Diagnoses Not on filedocumented in this encounter"
--- OUTSIDE RECORDS SUMMARY | ~2019-11-12 | XMS | Encounter Summary ---
Demographics + + + | Address | [address] | | | [place] [address] | + + + | Home Phone | | + + + | Preferred Language | Unknown | + + + | Marital Status | | + + + | Scientologist Affiliation | Unknown | + + + | Race | White | + + + | Ethnic Group | Not or | + + + Author + + + | Author | [facility] | | | and [place] | + + + | Organization | [facility] | | | [...] Team Providers + +------+ + | Care Coal Washer Tender Name | Role | Phone | + [...] Description | +--------+--------+ + + + | 07/26/ | Refill | [facility] | Santi Dumont MD | Medication Refill | | 2019 | | MEDICINE [address] [place] [address] | [address] [facility] | | | | | [address] [place] [place], | [place], [place] | | | | | [place] [address] | [address] | | | | | [phone] | | | +--------+--------+ + + + [...]
--- OUTSIDE RECORDS SUMMARY | ~2019-11-12 | XMS | Encounter Summary ---
Demographics + + + | Address | [address] | | | [place] [address] | + + + | Home Phone | | + + + | Preferred Language | Unknown | + + + | Marital Status | | + + + | Anabaptism Affiliation | Unknown | + + + | Race | White | + + + | Ethnic Group | Not or | + + + Author + + + | Author | [facility] | | | and [place] | + + + | Organization | [facility] | | [...] Team Providers + +------+ + | Care Teacher Of The Deaf Name | Role | Phone | + +------+ + | Santi Dumont MD | PCP | | + +------+ + Encounter Details +--------+ + + + + | Date | Type | Department | Care Team | Description | +--------+ + + + + | 04/06/ | Episode | [facility] [place] | [facility] [place], | | | 2017 | Changes | ORTHOPEDIC SURGERY | Computer Animator | | | | | [address] | | | | | | [place] | | | | | | [address] | | | | | | [phone] | | | +--------+ + + + [...]
--- OUTSIDE RECORDS SUMMARY | ~2019-11-12 | XMS | Encounter Summary ---
Demographics + + + | Address | [address] | | | [place] [address] | + + + | Home Phone | | + + + | Preferred Language | Unknown | + + + | Marital Status | | + + + | Anabaptism Affiliation | Unknown | + + + | Race | White | + + + | Ethnic Group | Not or | + + + Author + + + | Author | [facility] | | | and [place] | + + + | Organization | [facility] | | | [...] Team Providers + +------+ + | Care Lead Painter Name | Role | Phone | + +------+ + | Isaac Miranda MD | PCP | | + +------+ + Encounter Details +--------+ + + + + | Date | Type | Department | Care Team | Description | +--------+ + + + + | 02/06/ | Hospital | [facility] | Mahendra Luna MD | | | 2011 - | Encounter | MED [facility]ORY | [address] | | | | | [address] | [place] [address] | | | 02/08/ | | [place] | [phone] | | | 2011 | | [address] | | | | | | [phone] | | | +--------+ + + + [...] + + + +---------+ + + | finasteride | Take 5 mg by mouth | | 0 | 01/24/20 | | | (PROSCAR) 5 mg | Daily. | | | 12 | 7 | | tablet | | | | | | + + + +---------+ + + | furosemide (LASIX) | Take 20 mg by mouth | | 0 | | | | 20 mg tablet | 2 times daily. | | | | 7 | + + + +---------+ + + | Lactulose | Take 30 mLs by mouth | 240 mL | 1 | 02/08/20 | | | SOLNIndications: S/P | every 6 hours as | | | 12 | 7 | | lumbar fusion | needed | | | | | | | (Constipation). | | | | | + + + +---------+ + + | lisinopril | Take 20 mg by mouth | | 0 | | | | (PRINIVIL, ZESTRIL) | Daily. | | | | 7 | | 20 mg tablet | | | | | | + + + +---------+ + + | methocarbamol | Take 1-2 tablets by | 90 | 3 | 02/08/20 | | | (ROBAXIN) 750 mg | mouth every 6 hours | tablet | | 12 | 2 | | tabletIndications: | as needed for Muscle | | | | | | S/P lumbar fusion | spasms for 10 days. | | | | | + + + +---------+ + + | methocarbamol | Take 750 mg by mouth | | 0 | | | | (ROBAXIN) 750 mg | 4 times daily. | | | | 7 | | tablet | | | | | | + + + +---------+ + + | nadolol (CORGARD) | Take 80 mg by mouth | | 0 | | | | 80 MG tablet | Daily. | | | | 7 | + + + +---------+ + + | | Take by mouth. | | 0 | | | | Oxycodone-Acetaminop | | | | | 3 | | hen (PERCOCET PO) | | | | | | + + + +---------+ + + | | Take 1-2 tablets by | 60 | 0 | 02/08/20 | | | oxyCODONE-acetaminop | mouth every 4 hours | tablet | | 12 | 2 | | hen (PERCOCET) | as needed for Pain | | | | | | 7.5-325 mg per | for 10 days. | | | | | | tabletIndications: | | | | | | | S/P lumbar fusion | | | | | | + [...] mg | Daily. | | | | 7 | | tablet | | | | | | + + + +---------+ + + | tamsulosin | Take 0.4 mg by mouth | | 0 | | | | (FLOMAX) 0.4 mg CAPS | daily (after | | | | 7 | | | breakfast). | | | | | + + + +---------+ + + | terazosin (HYTRIN) | Take 2 mg by mouth | | 0 | | | | 2 MG capsule | nightly. | | | | 7 | + + + +---------+ + + documented as of this encounter Plan of Treatment Not on filedocumented as of this encounter Procedures + +--------+ + + + | Procedure Name | Priori | Date/Time | Associated Diagnosis | Comments | | | ty | | | | + +--------+ + + + | XR CHEST PA AND | Routin | 02/07/2012 | | Results for this | | LATERAL | e | 12:37 PM | | procedure are in the | | | | PST | | results section. | + +--------+ + + + | PTT | Routin | 02/07/2012 | | Results for this | | | e | 10:59 AM | | procedure are in the | | | | PST | | results section. | + +--------+ + + + | PROTIME INR | Routin | 02/07/2012 | | Results for this | | | e | 10:59 AM | | procedure are in the | | | | PST | | results section. | + +--------+ + + + | CBC NO DIFFERENTIAL | Routin | 02/07/2012 | | Results for this | | | e | 10:59 AM | | procedure are in the | | | | PST | | results section. | + +--------+ + + + | BASIC METABOLIC | Routin | 02/07/2012 | | Results for this | | PANEL | e | 10:59 AM | | procedure are in the | | | | PST | | results section. | + +--------+ + + + documented in this encounter Results XR Chest PA and Lateral (02/07/2012 12:37 PM PST) + + | Specimen | + + | | + + + + + | Narrative | Performed At | + + + | [facility] | [place] | | Department [address] [place] | [facility] | | [ rep [address]] [ rep [facility] | | st zip] Signed | - IMAGING | | | | | Patient Name: PATRICE INTERIANO Physician: | | | Carlos Enrique. : 1955 Age: 56 Sex: M Unit #: [id number] | | | Exam Date: 02/07/12 Location: LAB | | | Report #: [id number] Page: | | | %(RAD)RES..mtdd.print.filter("pg") of %(RAD) | | | RES..mtdd.print.filter("tpg") | | | | | | Accession Number: [id number] | | | CHEST X-RAY 02/07/2012 CLINICAL HISTORY: PREOPERATIVE | | | CHEST X-RAY. COMPARISON: 06/26/11. | | | FINDINGS: PA and lateral views of the chest were obtained. Bilateral | | | lungs are clear. The heart is mildly enlarged. Aorta is tortuous. | | | There are mild degenerative osteophytes of the thoracic spine. This | | | has remained stable. IMPRESSION: MILD | | | CARDIOMEGALY, OTHERWISE NO ACUTE FINDINGS. THIS HAS REMAINED STABLE. | | | Dictated Date/Time: 02/07/2012 12:37 | | | Transcribed Date/Time: 02/07/2012 12:49 Critical Care Nurse: | | | <<Signature on File>> | | | Sergio | | | MD Tom02/07/12 1446 <Electronically signed by Sergio Santos MD> | | | Sergio Santos MD 02/07/12 1237 Critical Care Nurse: Lisandro | | | Cohyekelwfdzc83/19/12 1249 Mahendra Luna MD | | + + + + + + + + | Performing | Address | City/State/Zipcode | Phone Number | | Organization | | | | + + + + + | [facility] | [address] | [place] | [phone] | | [facility] | | [address] | | | - IMAGING | | | | + + + + + APTT (02/07/2012 10:59 AM PST) + + + + + + | Component | Value | Ref Range | Performed | Pathologist | | | | | At | Signature | + + + + + + | aPTT | 28.0Comment: Normal | 22.1 - 36.0 | [facility] | | | | Patient Mean Value: 29.0 | seconds | [facility] | | | | secondsIS THIS PATIENT | | MEDICAL | | | | ON HEPARIN PROTOCOL? | | CENTER - | | | | NANTICOAGULANT THERAPY: | | LABORATORY | | | | UNK | | | | + + + + + + + + | Specimen | + + | | + + + + + | Narrative | Performed At | + + + | Collect By: | JEANIE | | | [facility] | | | [facility] | | | - LABORATORY | + + + + + + + + | Performing | Address | City/State/Zipcode | Phone Number | | Organization | | | | + + + + + | [facility] | [address] | [place] | [phone] | | [facility] | | [address] | | | - LABORATORY | | | | + + + + + | [facility] | [address] | [place] | | | [facility] | | [address], [facility] | | | - LABORATORY | | | | + + + + + Protime-INR (02/07/2012 10:59 AM PST) + + + + + + | Component | Value | Ref Range | Performed | Pathologist | | | | | At | Signature | + + + + + + | Prothrombin | 12.9 | 11.3 - 13.9 | [facility] | | | Time | | seconds | [facility] | | | | | | MEDICAL | | | | | | CENTER - | | | | | | LABORATORY | | + + + + + + | PATIENT | 12.9 | seconds | [facility] | | | NORMAL MEAN | | | [facility] | | | | | | MEDICAL | | | | | | CENTER - | | | | | | LABORATORY | | + + + + + + | INR | 1.0Comment: INR: USUAL | 0.9 - 1.1 | [facility] | | | | ORAL ANTICOAGULATION | | [facility] | | | | RANGE | | MEDICAL | | | | 2.0-3.0 HIGH | | CENTER - | | | | LEVEL ORAL | | LABORATORY | | | | ANTICOAGULATION RANGE | | | | | | 2.5-3.5 | | | | + + + + + + + + | Specimen | + + | | + + + + + | Narrative | Performed At | + + + | Collect By: Nurse | JEANIE | | | [facility] | | | [facility] | | | - LABORATORY | + + + + + + + + | Performing | Address | City/State/Zipcode | Phone Number | | Organization | | | | + + + + + | [facility] | [address] | [place], [place] | [phone] | | [facility] | | [address] | | | - LABORATORY | | | | + + + + + | [facility] | [address] | [place], [place] | | | [facility] | | [address] [place] [address] | | | - LABORATORY | | | | + + + + + CBC No Differential (02/07/2012 10:59 AM PST) + +-------+ + + + | Component | Value | Ref Range | Performed | Pathologist | | | | | At | Signature | + +-------+ + + + | White Blood | 4.6 | 4.0 - 11.0 K/uL | [facility] | | | Cells | | | [facility] | | | | | | MEDICAL | | | | | | CENTER - | | | | | | LABORATORY | | + +-------+ + + + | Red Blood | 4.72 | 4.30 - 5.70 | [facility] | | | Cells | | M/uL | [facility] | | | | | | MEDICAL | | | | | | CENTER - | | | | | | LABORATORY | | + +-------+ + + + | Hemoglobin | 14.8 | 13.5 - 18.0 | [facility] | | | | | gm/dL | [facility] | | | | | | MEDICAL | | | | | | CENTER - | | | | | | LABORATORY | | + +-------+ + + + | Hematocrit | 44.0 | 40.0 - 51.0 % | [facility] | | | | | | [facility] | | | | | | MEDICAL | | | | | | CENTER - | | | | | | LABORATORY | | + +-------+ + + + | MCV | 93.4 | 83.0 - 101.0 fL | [facility] | | | | | | [facility] | | | | | | MEDICAL | | | | | | CENTER - | | | | | | LABORATORY | | + +-------+ + + + | MCH | 31.5 | 28.0 - 35.0 pg | [facility] | | | | | | [facility] | | | | | | MEDICAL | | | | | | CENTER - | | | | | | LABORATORY | | + +-------+ + + + | MCHC | 33.7 | 32.0 - 36.0 | [facility] | | | | | g/dL | [facility] | | | | | | MEDICAL | | | | | | CENTER - | | | | | | LABORATORY | | + +-------+ + + + | RDW-CV | 13.2 | <15.0 % | [facility] | | | | | | [facility] | | | | | | MEDICAL | | | | | | CENTER - | | | | | | LABORATORY | | + +-------+ + + + | Platelet | 193 | 140 - 440 K/uL | [facility] | | | Count | | | [facility] | | | | | | MEDICAL | | | | | | CENTER - | | | | | | LABORATORY | | + +-------+ + + + + + | Specimen | + + | | + + + + + | Narrative | Performed At | + + + | Collect By: Nurse | [facility] | | | [facility] | | | [facility]ICAL CENTER | | | - LABORATORY | + + + + + + + + | Performing | Address | City/State/Zipcode | Phone Number | | Organization | | | | + + + + + | [facility] | [address] | [place], [place] | [phone] | | [facility] | | [address] | | | - LABORATORY | | | | + + + + + | [facility] | [address] | [place], [place] | | | [facility] | | [address] [place] [address] | | | - LABORATORY | | | | + + + + + Basic metabolic panel (02/07/2012 10:59 AM PST) + + + + + + | Component | Value | Ref Range | Performed | Pathologist | | | | | At | Signature | + + + + + + | Glucose | 91 | 70 - 109 mg/dL | [facility] | | | | | | [facility] | | | | | | MEDICAL | | | | | | CENTER - | | | | | | LABORATORY | | + + + + + + | Calcium | 9.0 | 8.3 - 10.5 | [facility] | | | | | mg/dL | [facility] | | | | | | MEDICAL | | | | | | CENTER - | | | | | | LABORATORY | | + + + + + + | BUN | 15 | 7 - 18 mg/dL | [facility] | | | | | | [facility] | | | | | | MEDICAL | | | | | | CENTER - | | | | | | LABORATORY | | + + + + + + | Creatinine | 1.00 | 0.60 - 1.30 | [facility] | | | | | mg/dL | [facility] | | | | | | MEDICAL | | | | | | CENTER - | | | | | | LABORATORY | | + + + + + + | Estimated | >60Comment: For | >60 mL/min/A | [facility] | | | GFR | -Americans, | | [facility] | | | | please multiply the | | MEDICAL | | | | result by 1.210 | | CENTER - | | | | This is an estimated GFR | | LABORATORY | | | | and is based on a | | | | | | standard adult | | | | | | body mass (A=1.73m2) and | | | | | | serum creatinine | | | | + + + + + + | BUN/Creatin | 15.0 | 12 - 20 | [facility] | | | ine Ratio | | | [facility] | | | | | | MEDICAL | | | | | | CENTER - | | | | | | LABORATORY | | + + + + + + | Na | 135 (L) | 136 - 149 mEq/L | [facility] | | | | | | [facility] | | | | | | MEDICAL | | | | | | CENTER - | | | | | | LABORATORY | | + + + + + + | K | 4.1 | 3.5 - 5.1 mEq/l | [facility] | | | | | | [facility] | | | | | | MEDICAL | | | | | | CENTER - | | | | | | LABORATORY | | + + + + + + | Cl | 100 | 98 - 109 mEq/l | [facility] | | | | | | [facility] | | | | | | MEDICAL | | | | | | CENTER - | | | | | | LABORATORY | | + + + + + + | CO2 | 27 | 24 - 31 mEq/L | [facility] | | | | | | [facility] | | | | | | MEDICAL | | | | | | CENTER - | | | | | | LABORATORY | | + + + + + + | Anion Gap | 12.1 | 6.0 - 17.0 | [facility] | | | | | | [facility] | | | | | | MEDICAL | | | | | | CENTER - | | | | | | LABORATORY | | + + + + + + + + | Specimen | + + | | + + + + + | Narrative | Performed At | + + + | Collect By: Nurse | [facility] | | | [facility] | | | MEDICAL CENTER | | | - LABORATORY | + + + + + + + + | Performing | Address | City/State/Zipcode | Phone Number | | Organization | | | | + + + + + | [facility] | [address] | [place], [place] | [phone] | | [facility] | | [address] | | | - LABORATORY | | | | + + + + + | [facility] | [address] | [place], [place] | | | [facility] | | [address] [place] [address] | | | - LABORATORY | | | | + + + + + documented in this encounter Visit Diagnoses Not on filedocumented in this encounter
--- OUTSIDE RECORDS SUMMARY | ~2019-11-12 | XMS | Encounter Summary ---
Demographics + + + | Address | [address] | | | [place] [address] | + + + | Home Phone | | + + + | Preferred Language | Unknown | + + + | Marital Status | | + + + | Hoahaoism Affiliation | Unknown | + + + | Race | White | + + + | Ethnic Group | Not or | + + + Author + + + | Author | [facility] | | | and [place] | + + + | Organization | [facility] | | | and [...] Team Providers + +------+ + | Care Post Anesthesia Care Unit Nurse Name | Role | Phone | + +------+ + | Santi Dumont MD | PCP | | + +------+ + Encounter Details +--------+ + + + + | Date | Type | Department | Care Team | Description | +--------+ + + + + | 03/26/ | Episode | [facility] [place] | [place], | | | 2017 | Changes | ORTHOPEDIC 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
--- OUTSIDE RECORDS SUMMARY | ~2019-11-12 | XMS | Encounter Summary ---
Demographics + + + | Address | [address] | | | [place] [address] | + + + | Home Phone | | + + + | Preferred Language | Unknown | + + + | Marital Status | | + + + | Pentecostalism Affiliation | Unknown | + + + | Race | White | + + + | Ethnic Group | Not or | + + + Author + + + | Author | [facility] | | | and [place] | + + + | Organization | [facility] | | | and [...] Team Providers + +------+ + | Care Bonbon Cream Warmer Name | Role | Phone | + [...] Description | +--------+--------+ + + + | 05/31/ | Refill | [facility] [place] [facility] | Edilma Fatima | Medication Refill | | 2019 | | MEDICINE [address] | [address] | | | | | [place] [facility], | [address] [facility] | | | | | [place] [address] | [place] [address] | | | | | [phone] | [phone] | | | | | | | | +--------+--------+ + + + [...] this encounter Miscellaneous Notes Telephone Encounter - Sofia Ruiz RN - 05/31/2018 9:09 AM PDTRequested medication: E liquis 5 mg Last office visit: 01/01/18 Last refill: 12/07/17 Next office visit: 08/26/18 A M PDTdocumented in this encounter Plan of Treatment Not on filedocumented as of this encounter Visit Diagnoses Not on filedocumented in this encounter"
--- OUTSIDE RECORDS SUMMARY | ~2019-11-12 | XMS | Encounter Summary ---
Demographics + + + | Address | [address] | | | [place] [address] | + + + | Home Phone | | + + + | Preferred Language | Unknown | + + + | Marital Status | | + + + | Druze Affiliation | Unknown | + + + [...] Team Providers + +------+ + | Care Regional Director Name | Role | Phone | + +------+ + | Isaac Miranda MD | PCP | | + +------+ + Encounter Details +--------+ + + + + | Date | Type | Department | Care Team | Description | +--------+ + + + + | 07/13/ | Abstract | [facility] [place] | Mich Carvajal | | | 2017 | | NEUROSURGERY [address] | [address] | | | | | [address] [place], [place] | | | | | [place], [place] | [id number] | | | | | [address] | | | | | | [phone] | | | +--------+ + + + [...]
--- OUTSIDE RECORDS SUMMARY | ~2019-11-12 | XMS | Encounter Summary ---
Demographics + + + | Address | [address] | | | [place] [address] | + + + | Home Phone | | + + + | Preferred Language | Unknown | + + + | Marital Status | | + + + | Congregation Affiliation | Unknown | + + + | Race | White | + + + | Ethnic Group | Not or | + + + Author + + + | Author | [facility] | | | and [place] | + + + | Organization | [facility] | | | and [place] | + + + | Address | Unknown | + + + | Phone | Unavailable | + + + Support + + +---------+ + | Name | Relationship | Address | Phone | + + +---------+ + | Gely Interiano | ECON | Unknown | | + + +---------+ + | Eiler Interiano | ECON | Unknown | | + + +---------+ + | Tali Interiano | ECON | Unknown | | + + +---------+ + Care Team Providers + +------+ + | Care Tenderizer Tender Name | Role | Phone | + +------+ + | Santi Dumont MD | PCP | | + +------+ + Reason for Visit + +--------+ + | Reason | Onset | Comments | | | Date | | + +--------+ + | Lab Order | 08/27/ | | | | 2019 | | + +--------+ + Encounter Details +--------+ + + + + | Date | Type | Department | Care Team | Description | +--------+ + + + + | 08/27/ | Telephone | [facility] | Santi Dumont MD | Lab Order | | 2018 | | MEDICINE [address] [place] [address] | [address] [place] [address] | | | | | [place], | [place] | | | | | [place] [address] | [address] | | | | | [phone] | | | +--------+ + + + [...] this encounter Miscellaneous Notes Telephone Encounter - Santi Dumont MD - 08/27/2018 10:10 AM PDTOK will do those labs in the future. elephone En counter - Magdalene Roper RN - 08/27/2018 8:[facility] [address] [facility] They we re able to add on the iron and transferrin but not the Hep C labs. They wanted Dr. Dumont to know those labs will need to be drawn separately. documented in this encounter Plan of Treatment Not on filedocumented as of this encounter Visit Diagnoses Not on filedocumented in this encounter"
--- OUTSIDE RECORDS SUMMARY | ~2019-11-12 | XMS | Encounter Summary ---
Demographics + + + | Address | [address] | | | [place] [address] | + + + | Home Phone | | + + + | Preferred Language | Unknown | + + + | Marital Status | | + + + | Confucianist Affiliation | Unknown | + + + | Race | White | + + + | Ethnic Group | Not or | + + + Author + + + | Author | [facility] | | | and [place] | + + + | Organization | [facility] | | [...] Team Providers + +------+ + | Care Conventional Machinist Name | Role | Phone | + +------+ + PCP | Unavailable | + +------+ + Encounter Details +--------+ + + + + | Date | Type | Department | Care Team | Description | +--------+ + + + + | 07/05/ | Hospital | [facility] | Mahendra Luna MD | | | 2011 | Encounter | [facility] | [address] | | | | | [address] | [place] [address] | | | | | [place] | [phone] | | | | | [address] | | | | | | [phone] | | | +--------+ + + + [...] + + documented as of this encounter H&P Notes Mahendra Luna MD - 07/06/2011 6:06 AM PDTDATE: PREOPERATIVE HISTORY AND PHYSICAL DATE OF PROCEDURE: 07/06/2011 CHIEF COMPLAINT: Neck pain. PERTINENT HISTORY: The patient is a 55-year-old male who was referred to me for neck and b ack symptoms. He has had long-standing neck symptoms with clumsiness and deterioration of h is hand function over the last 10 years. He has had hand tremors and jerking of both of his legs. He states his hand writing has deteriorated significantly over the last several year s and has severe neck pain that travels into both arms. He was seen and evaluated by me in May and found to have cervical myelopathy with severe cord compression and some myelomala emma. He presents today for planned surgery. PAST MEDICAL HISTORY 1. Hypertension. 2. Acid reflux. 3. Anxiety. 4. Tremor. 5. Restless leg syndrome. 6. Benign essential tremor. 7. Back injury. PAST OPERATIONS: Hernia repair 2010. CURRENT MEDICATIONS 1. Sertraline. 2. Lisinopril. 3. Nadolol. 4. Pramipexole. ALLERGIES: HE REPORTS NO KNOWN DRUG ALLERGIES. SOCIAL HISTORY: He chews tobacco. He rarely consumes alcohol and he denies illicit drug us e. FAMILY HISTORY: Positive for heart disease, cancer, diabetes and hypertension. A complete review of systems was performed on 06/01/2011, and there are no changes in the complete review of systems. This was reviewed in the medical record. PHYSICAL EXAMINATION GENERAL: He is in no acute distress. He has unlabored respirations. HEAD/EYES/EARS/NOSE AND THROAT: Head exam shows he is normocephalic and atraumatic. Eyes s howed normal sclerae without icterus. Ears showed no drainage or tenderness. Nasopharynx is clear without erythromycin or exudate. NECK: Supple. I palpated no masses in the anterior cervical region. CHEST: Clear to auscultation without crackles or wheeze. HEART: Regular rate and rhythm with no gallops. ABDOMEN: Soft and nontender. SPINE: Examination shows tenderness in the midline of the cervical and lumbar segments. He has diminished range of motion in lateral bending and flexion and extension of the neck. EXTREMITIES: Show no cyanosis, clubbing or edema. NEUROLOGIC: The patient is awake and alert. He follows complex commands. His speech is flu ent. He comprehends speech well and repeats well. He has no apparent deficits of his long- or short-term memory. His cranial nerve exam shows cranial nerves 2 through 12 intact. His motor exam shows 5/5 strength throughout. Sensory examination shows complaints of radicular pain down the buttock on the right greater than left and some paresthetic pain reported do wn both arms to the hands. His deep tendon reflexes are 2/4 in the upper extremities, 3+ a t the knees bilaterally, 2/4 at the Achilles bilaterally. He has no Hoffmans and his planta rs are downgoing. His muscle tone is fairly spastic with some tremor noted with intention. His MRI of the cervical spine is reviewed. The patient has multilevel cervical degenerativ e changes at C3-4, 4-5, 5-6 and 6-7. He has neural foraminal narrowing at C3-C5 and severe canal stenosis C3-C5. At C5 and 6 cord is heavily impinged with some probable myelomalacia within the cord at those segments. An MRI of his lumbar spine is reviewed, which shows multilevel degenerative changes, as we ll. He had severe stenosis at L4-5 and L5-S1. He has moderate canal stenosis and subarticul ar stenosis. At L3-4 he has marked facet hypertrophy and some facet hyperintensity. There i s evidence of spondylolisthesis with retrolisthesis of L5 at the L4-5 and L5-S1 segments. Modic changes are also noted within the bone. Flexion/extension views show instability at L 4-5 and L5-S1, with spondylolisthesis. They also reveal on AP x- rays some degenerative sco liosis. ASSESSMENT 1. Cervical spondylosis with myelopathy and cervical radiculopathy C3-C7. 2. Multilevel lumbar spondylosis with multilevel lumbar spondylolisthesis, facet arthropat hy and facet disease. 3. Lumbar degenerative disk disease. 4. Multilevel lumbar degenerative scoliosis, mild. 5. Hypertension. 6. Acid reflux. 7. Anxiety. 8. Tremor. 9. Restless leg syndrome. PLAN: Mr. Interiano presents today for planned surgery. He has severe cord compression, myelo malacia, cervical radicular symptoms, and myelopathy. I discussed with him his options in f ull and he would like to proceed with the surgery, fully aware of the full risks, benefits and alternatives, which include but are not limited to bleeding, infection, , paralysi s, stroke, failure to fuse, fracture of hardware, failure to improve neurologically, hoars eness and swallowing difficulty. I am hoping to improve his function with the surgery and h opefully stabilize some of the myelopathy. He does understand that myelopathy does not alwa ys improve, but usually we can see some improvement with time. DICTATED BY: Mahendra Luna MD Neurological Surgery JOB #: [id number] EXT JOB #:[id number] EDITED: 07/06/2011 <Electronically Signed by Mahendra Luna MD> 07/08/11 0846 documented in this encounter Miscellaneous Notes Op Note - Mahendra Luna MD - 07/06/2011 6:06 AM PDTDATE: 07/06/2011 PREOPERATIVE DIAGNOSES 1. Cervical spondylotic myelopathy, C4-5, C5-6, C6-7. 2. Cervical spinal stenosis. 3. Cervical radiculopathy. POSTOPERATIVE DIAGNOSES 1. CERVICAL SPONDYLOTIC MYELOPATHY, C4-5, C5-6, C6-7. 2. CERVICAL SPINAL STENOSIS. 3. CERVICAL RADICULOPATHY. PROCEDURES 1. Anterior cervical diskectomy, C4-5, C5-6, C6-7. 2. Anterior cervical interbody arthrodesis with preparation of endplates, C4-5, C5-6, C6-7. 3. Placement of structural allograft bone and DBX, C4-5, C5-6, C6-7. 4. Anterior cervical plating C4, 5, 6, and 7, using [employer]tronic Animas Vision Elite plate and screws. 5. Microsurgical technique with the use of operating microscope. ATTENDING: Mahendra Luna MD ORACLE FORMS DEVELOPER: None. ANESTHESIA: General, performed by Dr. Pipo De La Rosa. ESTIMATED BLOOD LOSS: 87 mL COMPLICATIONS: There were no intraoperative complications. INTRAOPERATIVE FINDINGS: The patient had severe cervical spondylosis with large anterior an d also pos terior osteophytes. Disk degeneration and disk height loss was severe. He also w as kyphotic. OPERATIVE DETAILS: After obtaining consent, the patient was taken to the operating room and placed un cristal general anesthesia. He was then positioned in the supine position on the ope rating table with his head placed in 10 pounds of Holter traction. Anterior neck was preppe d and draped in standard fashio n, and a timeout was performed. All members of the surgical team agreed to the timeout. The skin inci mallika was planned on the right side. Fluoroscopy was used to localize the C4, 5, 6, and 7 levels, and an incision was opened on the right si de, just above these levels, in a transverse/oblique fashion. S ubcutaneous tissues were di ssected with Bovie cautery down to and through the platysma. The platysma was then undermin ed with Metzenbaum scissors, and then a sharp dissection was performed medial to the sterno cleidomastoid that allowed approach to the prevertebral space. The prevertebral tissues were o pened with Metzenbaum scissors, allowing visualization of large osteophytes projecting o ff the spine. The level of C6-7 was identified on lateral fluoroscopy and then marked. Bovi e cautery was then used to take down the longus colli from C4 down to C7 bilaterally in a s ubperiosteal fashion. The Koros r etractor was then inserted to maintain visualization. The microscope was brought into the field for m icrosurgical dissection. The C5-6 level was ap proached first. The disk was removed first by removing anterior osteophytes with a [place]-S mith and high speed drill. The disk was then incised with a #15 b lade knife and removed in a piecemeal fashion with pituitary rongeurs, Kerrison rongeurs, curettes, a nd a high-spee d drill. The high-speed drill was also used to prepare the endplates for arthrodesis. Carlos Enrique johnson was taken back to the posterior osteophytes, which were also removed, revealing the und erlyin g ligamentum. The ligamentum was then taken down with a microhook and Kerrison ronge ur, allowing visu alization of the underlying dura. The dura was then decompressed centrall y and laterally, removing os teophytes and ligament out the neural foramen and from the can al. The endplates were then curetted fo r final preparation for fusion with a #5 mm curet a nd then FloSeal was used for hemostasis. The C6-7 level was approached in similar fashion, again encountering large osteophytes anteriorly, which were removed. Posterior osteophytes were also encountered and also removed with a high-speed drill after r emoval of the disk a s above. The endplates were prepared for arthrodesis with a drill and curettage. The ligame ntum was taken down in similar fashion, again revealing the underlying dura, and the dura w as decompressed centrally and laterally at this segment as well. FloSeal was then used for hemostasis at this segment as well, followed by repositioning of the retractors for the C4- 5 approach. Koros re tractor was removed and then replaced docking the Koros retractor more cranially. The 4-5 level was m arkedly overgrown by osteophyte. The osteophytes were remov ed from the anterior disk space with a Vladimir cid-Tejeda followed by removal of the disk with a knife, pituitary rongeurs, Kerrison rongeurs, and cu rettes. The posterior osteophytes wer e taken down and the endplates were prepared using a high-speed drill once again, revealing the underlying dura. The dura was then taken down centrally with a microh ook and Kerrison rongeur, and then the canal was decompressed fully using a Kerrison rongeur to remov e the ligamentum centrally and then laterally. The neural foramen were made patent. The endplates wer e then curetted for final preparation for fusion again at this segment, and then trial s were used. Th e 6 mm grafts were determined to be the appropriate size at each segment. T he 6 mm structural allogra ft [employer] SR bone was then tamped into place at each level using DBX putty within the core. The spacers were made more lordotic at the lower 2 levels to introduce additional lordosis in the patient 's neck. The patient was then removed from Holter traction and extended somewhat to allow again furth er reduction of his kyphosis. Th is did seem to help significantly. A [employer] Vision Elite plate was then held in place with holding pins. The 60 mm plate was then screwed to the bone by kylah gonzalez in the 4, 5, 6, and 7 body and then placing 16 mm screws at C4, C5, and C6 bilaterally a nd 17 mm fixed screws at C7. Good bony purchase was obtained. The locking mechanism was then engaged throughout. Copious irrigation was then performed, followed by bipolar cautery of any active bleedin g in the neck. FloSeal was also used for epidural hemostasis and then Fl oSeal was irrigated out. A dr staley was left in the subplatysmal space. The platysma was then closed with a layer of 3-0 Vicryl sutur es followed by closure of the skin with a layer of 4-0 Vicryl sutures. Dermabond was used for final s kin closure, and the wound was dressed with a Steri-Strip. All counts were reported as correct. The song morales tolerated the procedu re and was transferred to the recovery room in stable condition. DICTATED BY: Mahendra Luna MD Neurological Surgery JOB #: [id number] EXT JOB #:[id number] <Electronicall y Signed by Mahendra Luna MD> 07/08/11 0846 documented in this encounter Plan of Treatment Not on filedocumented as of this encounter Procedures + +--------+ + + + | Procedure Name | Priori | Date/Time | Associated Diagnosis | Comments | | | ty | | | | + +--------+ + + + | XR SPINE 1 VW | | 07/06/2011 | | Results for this | | | | 6:06 AM | | procedure are in the | | | | PDT | | results section. | + +--------+ + + + documented in this encounter Results XR Spine 1 Vw (07/06/2011 6:06 AM PDT) + + | Specimen | + + | | + + + + + | Narrative | Performed At | + + + | [facility] Diagnostic Imaging Department | [facility] | | [address] | [facility] | | SPINE ONE VIEW, 07/06/2011 | DIAG IMG | | CLINICAL HISTORY: ACDF. FINDINGS: Single lateral view of | | | the cervical spine. Anterior cervical disk fusion plate has been p | | | laced from C4 through C7. Interbody grafts are in place at the | | | intervening disk spaces. Expected op erative changes are present in | | | the cervical soft tissues including a small drain in place. | | | IMPRESSION: 1. STATUS POST CERVICAL FUSION OF C4 THROUGH C7 | | | WITHOUT EVIDENCE FOR IMMEDIATE COMPLICATION. Dictated | | | Date/Time: 07/06/2011 16:22 Transcribed Date/Time: 07/06/2011 | | | 16:33 Diversional Therapist'S Assistant: <Electronically Signed by Shawn Gavin | | | MD Mahi> 07/06/11 2257 | | + + + + + | Procedure Note | + + | Francois Singh Conversion - 03/28/2013 5:21 PM [facility] | | Diagnostic Imaging Department [address] [place] [address] | | SPINE ONE VIEW, 07/06/2011 CLINICAL HISTORY: ACDF. | | FINDINGS: Single lateral view of the cervical spine. Anterior cervical disk fusion | | plate has been placed from C4 through C7. Interbody grafts are in place at the | | intervening disk spaces. Expected operative changes are present in the cervical soft | | tissues including a small drain in place. IMPRESSION: 1. STATUS POST CERVICAL FUSION | | OF C4 THROUGH C7 WITHOUT EVIDENCE FOR IMMEDIATE COMPLICATION. Dictated Date/Time: | | 07/06/2011 16:22Transcribed Date/Time: 07/06/2011 16:33Transcriptionist: | | <Electronically Signed by Shawn Champagne MD> 07/06/112256 | |FINDINGS: Single lateral view of the cervical spine. Anterior cervical disk fusion plate has been p | |laced from C4 through C7. Interbody grafts are in place at the intervening disk spaces. E xpected op | |erative changes are present in the cervical soft tissues including a small drain in place. | | | |IMPRESSION: | |1. STATUS POST CERVICAL FUSION OF C4 THROUGH C7 WITHOUT EVIDENCE FOR IMMEDIATE COMPLICATIO N. | | | |Dictated Date/Time: 07/06/2011 16:22 | |Transcribed Date/Time: 07/06/2011 16:33 | |Diversional Therapist'S Assistant: | |<Electronically Signed by Shawn Champagne MD> 07/06/112256 | + + + +---------+ + + | Performing | Address | City[facility]State[facility] | Phone Number | | Organization | | | | + +---------+ + + | [place] | | | | | [place] | | | | + +---------+ + + documented in this encounter Visit Diagnoses Not on filedocumented in this encounter"
--- OUTSIDE RECORDS SUMMARY | ~2019-11-12 | XMS | Encounter Summary ---
Demographics + + + | Address | [address] | | | [place] [address] | + + + | Home Phone | | + + + | Preferred Language | Unknown | + + + | Marital Status | | + + + | Judaism Affiliation | Unknown | + + + | Race | White | + + + | Ethnic Group | Not or | + + + Author + + + | Author | [facility] | | | and [place] | + + + | Organization | [facility] | | | [...] Team Providers + +------+ + | Care Site Inspector Name | Role | Phone | + +------+ + | Santi Dumont MD | PCP | | + +------+ + Encounter Details +--------+ + + + + | Date | Type | Department | Care Team | Description | +--------+ + + + + | 06/09/ | Hospital | [facility] | Joby Plata, | | | 2017 | Encounter | MED CTR THERAPY OT | OT | | | | | ACUTE [address] | | | | | | [place] | | | | | | [address] | | | | | | [phone] | | | +--------+ + + + [...] + + + +---------+ + + | ELIQUIS 5 MG | Take 5 mg by mouth 2 | | 0 | 04/05/19 | | | tablet | times daily. | | | 18 | 8 | + + + +---------+ + + | furosemide (LASIX) | Take 1 tablet by | 30 | 5 | 02/01/20 | | | 40 mg tablet | mouth Daily. | tablet | | 17 | 8 | + + + +---------+ + + | gabapentin | Take 1 capsule by | 90 | 0 | 03/14/19 | | | (NEURONTIN) 300 mg | mouth 4 times daily. | capsule | | 18 | 9 | | capsule | | | | | | + + + +---------+ + + | | Take 1 tablet by | 40 | 0 | 06/10/19 | | | HYDROcodone-acetamin | mouth every 6 hours | tablet | | 18 | 8 | | ophen (NORCO) | as needed for Pain | | | | | | 7.5-325 mg per | for up to 10 days. | | | | | | tablet | | | | | | + + + +---------+ + + | lisinopril | Take 2 tablets by | 40 | 5 | 02/01/20 | | | (PRINIVIL, ZESTRIL) | mouth Daily. | tablet | | 17 | 8 | | 20 mg tablet | | | | | | + + + +---------+ + + | nadolol (CORGARD) | Take 0.5 tablets by | 30 | 5 | 02/01/20 | | | 80 MG tablet | mouth Daily. | tablet | | 17 | 9 | + + + +---------+ + + | POTASSIUM CHLORIDE | Take 20 mEq by mouth | | 0 | | | | PO | Daily. | | | | 8 | + + + +---------+ + + | pramipexole | Take 1 tablet by | 90 | 3 | 02/01/20 | | | (MIRAPEX) 0.5 MG | mouth Daily. | tablet | | 17 | 9 | | tablet | | | | | | + + + +---------+ + + | Senna 30 MG MISC | Take 30 mg by mouth | | 0 | | | | | as needed. | | | | 8 | + + + +---------+ [...] Take 4 mg by mouth | | 0 | | | | (ZANAFLEX) 4 mg | every 6 hours as | | | | 8 | | tablet | needed for Muscle | | | | | | | spasms. | | | | | + + + +---------+ + + documented as of this encounter Plan of Treatment Not on filedocumented as of this encounter Visit Diagnoses Not on filedocumented in this encounter"
--- OUTSIDE RECORDS SUMMARY | ~2019-11-12 | XMS | Encounter Summary ---
Demographics + + + | Address | [address] | | | [place] [address] | + + + | Home Phone | | + + + | Preferred Language | Unknown | + + + | Marital Status | | + + + | Holiness Affiliation | Unknown | + + + | Race | White | + + + | Ethnic Group | Not or | + + + Author + + + | Author | [facility] | | | and Brianana | + + + | Organization | [facility] | | | [...] Team Providers + +------+ + | Care Patient Safety Tech Name | Role | Phone | + [...] | | | | Diagnoses | | | | | | | Primary | | | | | | | osteoarthrit | | | | | | | is of left | | | | | | | hip Primary | | | | | | | | | | | | | | osteoarthrit | | | | | | | is of left | | | | | | | hip [M16.12] | | | | | | | Procedures | | | | | | | LA TOTAL | | | | | | | HIP | | | | | | | ARTHROPLASTY | | | | | | | Left Total | | | | | | | Hip | | | | | | | Arthroplasty | | | +--------+--------+ + + + + Encounter Details +--------+---------+ + + + | Date | Type | Department | Care Team | Description | +--------+---------+ + + + | 06/07/ | Surgery | [facility] | Tay Chand MD | Left Total Hip | | 2018 | | [facility] | [address] | Arthroplasty | | | | [address] | [place] | | | | | [place], [place] | [address] | | | | | [address] | [phone] | | | | | [phone] | | | +--------+---------+ + + + Social History [...] + + + | Blood Pressure | 139/84 | 06/07/2017 10:05 AM | | | | | PDT | | + + + + + | Pulse | 63 | 06/07/2017 10:05 AM | | | | | PDT | | + + + + + | Temperature | 36.4 C (97.5 F) | 06/07/2017 10:01 AM | | | | | PDT | | + + + + + | Respiratory Rate | 15 | 06/07/2017 10:05 AM | | | | | PDT | | + + + + + | Oxygen Saturation | 98% | 06/07/2017 10:05 AM | | | | | PDT | | + + + + + | Inhaled Oxygen | - | - | | | Concentration | | | | + + + + + | Weight | 117.6 kg (259 lb 4.2 | 06/07/2017 6:26 AM | | | | oz) | PDT | | + + + + + | Height | 177.8 cm (5' 10") | 06/07/2017 6:26 AM | | | | | PDT | | + + + + + | Body Mass Index | 37.2 | 06/07/2017 6:26 AM | | | | | PDT | | + + + + + documented in this encounter Discharge Instructions Instructions Gabriella Rogers, PharmD - 06/05/2017 Your post op appointment is scheduled for Thursday 06/15 at 9:45 am. Please check in at 9:15 am for xrays at the [facility]. Discharge Instructions for Hip Replacement Surgery You had a hip replacement surgery. This means your natural hip was replaced with an artific ial joint (prosthesis). You may be recovering at home or in a rehabilitation facility. Eithe r way, you must take care of your new hip. Do this by moving and sitting the way you were ta ught in the hospital. Also, be sure to see your doctor for follow-up visits, and return to a ctivity slowly. Because a total hip replacement is major surgery, it will be a few months be fore you can move comfortably. Home Care Take your medications exactly as directed on the separate Medication Reconciliation [place]. Typically, you will resume your routine medications, including your Eliquis which will a lso cover you for DVT prophylaxis. Tylenol (acetaminophen) and your pain pill are safe to t silas. Don t drive until your doctor says it s okay. And never drivewhile taking narcotic pain medication. Wear the support stockings you were given in the hospital. Wear them for 6 weeks post-op eratively To relieve discomfort at night, get up and move around as needed Incision Care A waterproof (Aquacel) dressing has been applied. It is OK to shower with this in place. NO tub soaks. Leave this Aquacel dressing in place until your first post-op visit unless it becomes wet or visibly soiled. Avoid infection by washing your hands often. If an infection occurs, it will need to be treated immediately. So call your doctorright awayif you think you may have an infection . Symptoms include a fever or an incision that leaks white, green, or yellow fluid. Avoid soaking yourincision in water (no hot tubs, bathtubs, swimming pools) until your doctor says it s okay. Sitting and Sleeping It is ok to sleep on your side, just remember to place a pillow between your knees Moving Safely Use a walker for 4 weeks. And remember to ask for help from others when you need it. Follow the posterior hip precautions You may put as much weight as is comfortable on the affected leg unless you have been to ld otherwise. Walk often and do theprescribed exercises as instructed. Arrange your household to keep the items you need within reach. Remove electrical cords, throw rugs, and anything else that may cause you to fall. Use nonslip bath mats, grab bars, an elevated toilet seat, and a shower chair in your ba throom. Follow-Up Make sure you keep the follow-up appointment with scheduled about 10 days from your surgery date. You may confirm the appointment date and time by calling [phone] When to Seek Medical Attention Call 911 right awayif you have any of the following: Chest pain Shortness of breath Otherwise, call your doctor immediately if you have any of the following: Increased hip pain Pain or swelling in your calf or leg Fever .4For shaking chills Excessive swelling, increased drainage or redness around the incision Swelling, tenderness, or cramps in your leg Medication Instructions: Do not exceed 4,000 mg of acetaminophen (Tylenol) per day. Hydrocodone-acetaminophen ([place] ) and Oxycodone-acetaminophen (Percocet) have 325 mg acetaminophen per tablet. Regular stre ngth acetaminophen is 325 mg per tablet. Extra strength has 500 mg per tablet. While you are taking the blood thinner (apixaban = Eliquis), please do not take any NSAIDs (aspirin, ibuprofen, naproxen, Motrin, Advil, Aleve, etc.) These can increase your risk of bleeding. Watch for signs of bleeding: Easy bruising Bleeding from the gums Vomiting something that looks like coffee grounds Dark tarry stool Call the doctor if you experience any of these. Watch for signs of blood clots: DVT: hard, hot, hurt, red in back of calf PE or ND: sudden chest pain or trouble breathing Stroke: trouble thinking or weakness on one side of body Call 911 if you experience any of these symptoms. Do not consume alcohol while taking prescription pain medications. For constipation: While you are taking opioid pain medications (hydrocodone and/or oxycodone), continue to ta ke docusate and senna twice daily. This will both help you have a bowel movement and help t he stool stay soft and [id number]. Remember to drink plenty of fluids and fiber-containin g foods. If you do not have a bowel movement within two days of returning home, add milk of magnesi a 30 mL once each night and/or Miralax one capful (17 grams) dissolved in half a cup of wate r once daily for 3 days. These are available [id number] at any drugstore. If you are still constipated 3 days after discharge, contact the doctor's office. documented in this encounter Medications at Time [...] + + documented as of this encounter Progress Notes Tay Chand MD - 06/09/2017 11:50 AM PDT Subjective: Post-Operative Day: 2 Days Post-Op Status Post Left NIRAJ Systemic or Specific Complaints: Mild incisional pain Objective: Patient Vitals for the past 24 hrs: BP Temp Temp src Pulse Resp SpO2 06/09/17 0753 111/70 (!) 38.5 C (101.3 F) Oral 71 18 93 % 06/08/17 2348 103/66 37.2 C (99 F) Oral 62 18 95 % 06/08/17 1952 122/69 37.8 C (100 F) Oral 80 18 93 % 06/08/17 1603 131/80 36.6 C (97.9 F) Oral 79 16 93 % 06/08/17 1355 117/71 37.6 C (99.7 F) Oral 72 16 92 % I/O last 24 Hours: In: 536 [P.O.:536] Out: 2049 [Urine:2049] General: Alert and oriented, no distress Bandage clean, dry, intact Circulation: left foot warm and well-perfused Neuro : 5/5 strength of left ankle flexion and extension; sensation intact to light touch o n dorsal and plantar surfaces of left foot Data Review Recent Results (from the past 24 hour(s)) Hemoglobin and Hematocrit Result Value Ref Range Hgb 11.5 (L) 13.5 - 18.0 g/dL Hct 35.6 (L) 40.0 - 51.0 % Assessment: 2 Days Post-Op status post NIRAJ, doing well Expected mild acute blood loss anemia Plan: Continue current postoperative course Physical therapy for gait training Tay Melgar MD - 0 06/08/2017 7:46 AM PDT Subjective: Post-Operative Day: 1 Day Post-Op Status Post Left NIRAJ Systemic or Specific Complaints: Mild incisional pain Objective: Patient Vitals for the past 24 hrs: BP Temp Temp src Pulse Resp SpO2 06/08/17 0432 - - - 78 - 92 % 06/08/17 0333 125/75 37.9 C (100.3 F) Oral 82 16 90 % 06/08/17 0025 - - - 76 - 93 % 06/08/17 0000 114/69 37.3 C (99.1 F) Oral 74 16 92 % 06/07/178 - - - 85 16 95 % 06/07/170 - - - 86 16 96 % 06/07/177 146/87 37.9 C (100.2 F) Oral 78 16 97 % 06/07/17 1627 135/87 - - 63 - 97 % 06/07/17 1455 140/86 - - 66 - 95 % 06/07/17 1431 134/83 - - - - - 06/07/17 1355 134/83 - - 74 - 98 % 06/07/17 1255 (!) 146/91 - - 76 - 97 % 06/07/17 1230 - 35.8 C (96.5 F) - - - - 06/07/17 1225 (!) 147/96 35.8 C (96.5 F) Oral 58 12 97 % 06/07/17 1200 (!) 148/99 - - 56 - 98 % 06/07/17 1040 135/82 - - 57 19 96 % 06/07/17 1035 142/72 - - 59 16 96 % 06/07/17 1030 (!) 146/100 - - 62 16 97 % 06/07/17 1025 (!) 143/93 - - 64 19 97 % 06/07/17 1020 (!) 141/95 - - 65 18 95 % 06/07/17 1015 145/85 - - 58 12 97 % 06/07/17 1010 140/90 - - 61 15 96 % 06/07/17 1005 139/84 - - 63 15 98 % 06/07/17 1001 140/88 36.4 C (97.5 F) Temporal 66 17 98 % I/O last 24 Hours: In: 3561 [P.O.:550; I.V.:2991; IV Piggyback:20] Out: 4100 [Urine:3800; Blood:300] General: Alert and oriented, no distress Bandage clean, dry, intact Circulation: Left foot warm and well-perfused Neuro : 5/5 strength of left ankle flexion and extension; sensation intact to light touch o n dorsal and plantar surfaces of foot Data Review Recent Results (from the past 24 hour(s)) Hemoglobin and Hematocrit Result Value Ref Range Hgb 11.9 (L) 13.5 - 18.0 g/dL Hct 34.9 (L) 40.0 - 51.0 % Basic Metabolic Panel Result Value Ref Range NA 133 (L) 136 - 149 mmol/L K 3.8 3.5 - 5.1 mmol/L CL 98 98 - 109 mmol/L CO2 30 24 - 31 mmol/L ANION GAP 5 3 - 16 mmol/L GLUCOSE 142 (H) 70 - 109 mg/dL BUN 10 7 - 18 mg/dL Creatinine, Serum/Plasma 0.95 0.60 - 1.30 mg/dL eGFR if not >60 >=60 mL/min/1.73m2 CALCIUM 8.5 8.3 - 10.5 mg/dL BUN/CREA 10.5 Assessment: 1 Day Post-Op status post Left NIRAJ Expected mild acute blood loss anemia Plan: Continue current postoperative course Eliquis for DVT prophylaxis Physical therapy for gait training documented in this enc ounter H&P Notes Tay Chand MD - 06/07/2017 7:30 AM PDT[facility] H[facility]ORY AND PHYSICAL UPDATE Pt. Name/Age/: Patrice Interiano 61 y.o. 1955 Date of admission: 06/07/2017 The current H&P was reviewed. The patient was reexamined. Re-evaluation of the patient co nfirms the necessity for the scheduled procedure. No change has occurred in the patient s condition since the H&P was completed less than 30 days ago. Electronically signed by: Tay Chand, 06/07/2017 7:30 [facility]ron[facility] signed by Tay Chand MD at 06/07 7:30 AM Olinda Escalona PA-C - 06/04/2017 12:12 PM PDTClinic Note Chief complaint: Left hip pain HPI: Patrice Interiano is a 61 year-old man who is seen today regarding a painful left right hip . He reports it started in December 2015 and has been progressive. He reports pain with an y attempted weightbearing. He feels the pain laterally and into the groin. Symptoms have p rogressed recently to the point where he can hardly walk. He is using a walker. The left h ip will pop and grind PMH: Hypertension, obesity, history of pulmonary embolism following lumbar spine surgery la st fall PSH: Lumbar spine surgery 2 and cervical spine surgery Allergies: None Medications: Eliquis stopped just over 1 week ago. Lasix, lisinopril, Corgard, omeprazole, potassium, Mirapex, sertraline and terazosin Social history: The patient is . He is disabled. He drinks no alcohol and does n ot use tobacco. Review of systems: Positive for hearing loss, heartburn, poor balance and falls. Physical examination: A significantly overweight middle-aged man in no acute distress. HEENT: Atraumatic, normocephalic and anicteric. Skin is warm and dry. Chest: Regular, nonlabored respirations. Cardiac: Regular pulse Orthopedic: Examination of the lower limbs shows symmetric limb length. Range of motion of the left hip is severely limited. Abduction is 30. In flexion, internal rotation is acevedo ited to 20 with significant pain. External rotation is 50 without significant pain. Pa pedro walks with a significantly antalgic limp favoring the left leg. Distal examination shows no cyanosis or clubbing. There is trace pretibial edema. There i s a 2+ dorsalis pedis and posterior tibial pulse. There is full strength of ankle extension and flexion. He states normal sensation on the dorsal and plantar surfaces of both feet. Radiographs: Plain films obtained previously at [facility] showed bone-on-chris ne left hip osteoarthritis and moderate right hip osteoarthritis. Impression and plan: 61 year-old man with severe left hip arthrosis with very significant and lifestyle limiting symptoms at the present time. He is desperate for relief of his pain . I explained to the patient and his that the only thing that will give him long-term relief of his pain is a total hip arthroplasty. He is very much interested in proceeding wi th that as soon as possible. Today, I reviewed with the patient and his the nature of total hip arthroplasty surger y, the multiple potential risks involved and the expected recovery afterward. I did explain that he is at increased risk for thromboembolism and we will need to plan on one month of f ormal anticoagulation, but would like to hear Dr. Dumont's recommendations with regards to th e specifics on that. The patient gives informed consent in writing. ADDENDUM: DR. DUMONT'S RECOMMENDATION FROM HIS OFFICE NOTE OF MAY 11 IS FOR POST-OP DVT LA OPHYLAXIS WITH ELIQUIS Past Medical History History of Hypertension Current Meds Harriet 60 MG CAPS; TAKE 1 CAPSULE TWICE DAILY; Therapy: (Recorded:22Jun2010) to Recorded Famotidine 40 MG Oral Tablet; Therapy: (Recorded:29Mar2010) to Recorded Hibiclens 4 % External Liquid; Therapy: (Recorded:22Jun2010) to Recorded Ibuprofen 600 MG Oral Tablet; Therapy: (Recorded:29Mar2010) to Recorded Lisinopril 20 MG Oral Tablet; Therapy: (Recorded:29Mar2010) to Recorded Mirapex 0.125 MG Oral Tablet (Pramipexole Dihydrochloride); TAKE 2 TABLETS AT BEDTIME; Therapy: (Recorded:22Jun2010) to Recorded Nadolol 40 MG Oral Tablet; TAKE 1 TABLET DAILY; Therapy: (Recorded:22Jun2010) to Recorded PriLOSEC CPDR (Omeprazole); Therapy: (Recorded:29Mar2010) to Recorded Primidone 50 MG Oral Tablet; Take 1/2 tablet at bedtime. Increase as directed by Dr Burns to 1 tablet twice a day; Therapy: 24Mar2010 to (Last Rx:24Mar2010) Ordered Sertraline HCl - 50 MG Oral Tablet; Therapy: (Recorded:29Mar2010) to Recorded Allergies No Known Drug Allergies Vitals Vitals Panel Recorded: 11May2017 11:45AM Height: 5 ft 10 in Weight: 257 lb BMI Calculated: 36.88 BSA Calculated: 2.32 Blood Pressure: 150 / 90 Heart Rate: 55 Assessment Primary localized osteoarthrosis of left hip (M16.12) Plan BMP (Basic Metabolic Panel); Status:Canceled; CBC W/ Auto Diff; Status:Canceled; DIAG - EKG 56356; Status:Canceled; MRSA Screen (Rflx); Status:Active; Requested for:11May2017; CS-Active Problems 1. 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 Preoperative examination (Z01.818) 3. Primary localized osteoarthrosis of left hip (M16.12) Signatures Electronically signed by : Tay Chand MD; May 14 2017 1:40PM PST (Author) documented in this encounter Miscellaneous Notes Plan of Care - Grazyna Harris RN - 06/09/2017 5:00 PM PDTProblem: Patient Care Overview (A dult) Goal: Care Team Goals & Evaluation PROBLEM-RELATED GOALS: 1. Patrice will be modified independent with ambulation in the hallway by 06/11/2017 2. Patrice's pain will be scored at 3 out of 10 by 06/09. 3. Patrice's Sensation to lower extremities will return to pt's baseline by 06/09. 4. Patrice will ambulate with staff by 06/08. 5. Patrice will tolerate a general textured diet by 06/08. 6. Patrice will be free from s/s of infection through 06/10. 7. Patrice will have BM by 06/09. 8. Patrice will maintain adequate oxygenation via oximetry with SpO2 >92 by 06/13/17. 9. will meet 75% of predicted incentive spirometer goal of 2500 by 06/13/17. 10. Will maintain airway and adequate ventilation with use of NIV and wean off by 06/13/17. 11. Pt will be supervision for grooming and functional transfers by 06/12/17 STRATEGY TO ACHIEVE GOALS: - Patient will participate in PT activities - Assess pain q4h and PRN. Medicate PRN and re-evaluate pain 30-60 minutes after and re-med icate PRN. Assist with repositioning for comfort. - Assess CMS q4h and PRN. Notify MD if abnormalities are found. - Assist up to bedside commode and chair on post-op day one, encourage ambulation to bathro om and in halls as appropriate. Use FWW and staff assist for safety. - Start pt on clear liquids when he arrives to the floor and advance to general texture as he tolerates. Medicate with anti-emetics PRN. - Assess dressing and vitals with temps q4h and PRN. Monitor lab work as ordered. Notify MD with concerns. - Assess bowel tones q shift and PRN. Encourage fluid intake and ambulation to help promote BM. Monitor for bowel movements and if no BM by POD2 use PRN bowel protocol. - Monitor saturations via oximetry and titrate to order as indicated. - Instruct patient how use of Incentive Spirometry and deep breath and cough. Nursing and Respiratory to work together to have patient use every hour while awake. Respiratory to mon itor progress 4 times daily until 75% goal met then turn over to nursing. -Pt will participate in OT POC Goal Evaluation: Patrice having very mild to no pain this shift. Treated with scheduled Tylenol and Ice Pack w ith relief. Doing very well ambulating with therapies today. Bowel tones active x 4, bowel movement today. No n/v. Voiding with no complications. CMS intact, no changes in assessm ent. Michael hose and SCD's remain in place. 101.3 temp this afternoon, Tylenol given and educ ated patient on the use of the IS. Decreased temp to 99.5. Dressing changed to Aquacel, inc ision is well approximated judson intact. IV removed intact no complications. AVS and RX g iven to patient. Educated on pain medication, Tylenol limits of 4000 mg. Educated on incis ion care and care at home ambulating. Verbalized understanding. Escorted out with staff in wheelchair. Discharged home with spouse. lan of Care - Ramsey Rucker, PT - 06/09/2017 4:15 PM PDT Problem: Patient Care Overview (Adult) Goal: Care Team Goals & Evaluation PROBLEM-RELATED GOALS: 1. Patrice will be modified independent with ambulation in the hallway by 06/11/2017 2. Patrice's pain will be scored at 3 out of 10 by 06/09. 3. Patrice's Sensation to lower extremities will return to pt's baseline by 06/09. 4. Patrice will ambulate with staff by 06/08. 5. Patrice will tolerate a general textured diet by 06/08. 6. Patrice will be free from s/s of infection through 06/10. 7. Patrice will have BM by 06/09. 8. Patrice will maintain adequate oxygenation via oximetry with SpO2 >92 by 06/13/17. 9. will meet 75% of predicted incentive spirometer goal of 2500 by 06/13/17. 10. Will maintain airway and adequate ventilation with use of NIV and wean off by 06/13/17. 11. Pt will be supervision for grooming and functional transfers by 06/12/17 STRATEGY TO ACHIEVE GOALS: - Patient will participate in PT activities - Assess pain q4h and PRN. Medicate PRN and re-evaluate pain 30-60 minutes after and re-med icate PRN. Assist with repositioning for comfort. - Assess CMS q4h and PRN. Notify MD if abnormalities are found. - Assist up to bedside commode and chair on post-op day one, encourage ambulation to bathro om and in halls as appropriate. Use FWW and staff assist for safety. - Start pt on clear liquids when he arrives to the floor and advance to general texture as he tolerates. Medicate with anti-emetics PRN. - Assess dressing and vitals with temps q4h and PRN. Monitor lab work as ordered. Notify MD with concerns. - Assess bowel tones q shift and PRN. Encourage fluid intake and ambulation to help promote BM. Monitor for bowel movements and if no BM by POD2 use PRN bowel protocol. - Monitor saturations via oximetry and titrate to order as indicated. - Instruct patient how use of Incentive Spirometry and deep breath and cough. Nursing and Respiratory to work together to have patient use every hour while awake. Respiratory to mon itor progress 4 times daily until 75% goal met then turn over to nursing. -Pt will participate in OT POC Outcome: Adequate for Discharge Date Met: 06/09/17 Physical Therapy Plan of Care Treatment, Discharge Note Summary: Patrice has been participating in physical therapy for treatment of Impaired funct ional mobility, decreased flexibility, decreased strength, impaired balance, and pain follow ing elective left total hip arthroplasty. Patient is now posterior hip precautions.. Empha sis of session included bed mobility, transfer training and gait training, stair training, p osterior approach hip precautions. Patient demonstrates progress towards functional goals a s evidenced by modified independent with all mobility and independent with posterior approac h hip precautions. Patrice has shown adequate progress towards goals and is to discharge PT at this time. Patrice is encouraged to ambulate into hallway with nursing staff and be up in wojciech ir for all meals. [facility] BASIC MOBILITY [facility] BASIC MOBILITY Turning over in bed: no assistance required Sitting down /standing up from arm chair: no assistance required Moving from supine to sitting on edge of bed: no assistance required Moving to and from a bed to a chair : independent or modified independent/no help Walking in hospital room: independent or modified independent/no help Climbing 3-5 steps with a railing: independent or modified independent/no help TOTAL - [facility] BASIC MOBILITY : 24 Completed the [facility] Activity Measure for Post Acute Care (AM-PAC) "6 Clicks" [facility] Mobility Inpatient Short Form. This version of the AM-PAC is an assessment tool used to measure a person's level of disability in performing basic mobility tasks. This patient's score indicates a performance of 0.00% impairment in the functioning of basic mobility. Raw Score - Functional Limitation % (for CMS) - "Severity Modifier" CN 6 - 100.00 CM 7 - 92.36 8 - 86.62 9 - 81.38 CL 10 - 76.75 11 - 72.57 12 - 68.66 13 - 64.91 14 - 61.29 CK 15 - 57.70 16 - 54.16 17 - 50.57 18 - 46.58 19 - 41.77 CJ 20 - 35.83 21 - 28.97 22 - 20.91 CI 23 - 11.2 CH 24 - 0.00 Predicted Discharge During Acute Hospitalization (Raw Score) Home = 20.1 With assist = 17.9 SNF = 14 IRF = 13.6 LTAC = 11.5 Physical Therapy Discharge Recommendations are: Recommended discharge disposition: home with assist Post discharge physical therapy recommendation: pt is motivated participant, family involv ed/supportive Equipment Recommendations: 2 wheeled walker (FWW) Planned Interventions: balance training, bed mobility training, gait training, patient/fam carmella education, stair training, transfer training Recommended Frequency: (1 2 times day) Patient Status/Goals: Reflects last filed data and may be from multiple contributors. Gait no physical assist needed. Extra time needed due to decreased flexibility and pain Level of Grand: modified independent Assistive Device: 2 wheeled walker (FWW) Distance (feet): 500 feet Gait Pattern Analysis: 2-point gait Gait Deviations: step length decreased, stride length decreased Safety Issues: weight-shifting ability decreased Stairs Mod I with handrails Number of Stairs: 4 Handrail Location: both sides Level of Grand: modified independent Assistive Device: 2 rails Technique Used: step to step (ascending), step to step (descending) Maintain Weight Bearing Status: able to maintain weight bearing status Safety Issues: weight-shifting ability decreased Impairments: decreased flexibility, pain Transfers Mod I , no physical assist needed. 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 PT Goal Review Date Most Recent Value STG Review Date 06/10/17 at 06/07/2017 1600 [id number] Goal Most Recent Value STG Status met at 06/09/2017 1715 STG Grand Level modified independent at 06/07/2017 1600 STG Assistive Device none at 06/07/2017 1600 Jfc-Fnvrr-Zod Goal Most Recent Value STG Status met at 06/09/2017 1715 STG Grand Level modified independent at 06/07/2017 1600 STG Assistive Device 2 wheeled walker (FWW) at 06/07/2017 1600 Gait Goal Most Recent Value STG Status met at 06/09/2017 1715 STG Grand Level modified independent at 06/07/2017 1600 STG Assistive Device 2 wheeled walker (FWW) at 06/07/2017 1600 STG Distance (feet) 100 feet at 06/07/2017 1600 Stair Goal Most Recent Value STG Status met at 06/09/2017 1715 STG Grand Level modified independent at 06/07/2017 1600 STG Assistive Device 1 rail at 06/07/2017 1600 STG Number of Stairs 4 at 06/07/2017 1600 Additional Goal #1 PT Most Recent Value STG Status met at 06/09/2017 1033 STG Patient and spouse will be independent with posterior total hip arthroplasty precautio ns. at 06/07/2017 1600 Electronically signed by: Ramsey Rucker, PT, 06/09/2017 17:16 lan of Care - [facility], Joby Choudhary, OT - 06/09/2017 3:00 PM PDTFormatting of this note might be different from t he original. Problem: Patient Care Overview (Adult) Goal: Care Team Goals & Evaluation PROBLEM-RELATED GOALS: 1. Patrice will be modified independent with ambulation in the hallway by 06/11/2017 2. Patrice's pain will be scored at 3 out of 10 by 06/09. 3. Patrice's Sensation to lower extremities will return to pt's baseline by 06/09. 4. Patrice will ambulate with staff by 06/08. 5. Patrice will tolerate a general textured diet by 06/08. 6. Patrice will be free from s/s of infection through 06/10. 7. Patrice will have BM by 06/09. 8. Patrice will maintain adequate oxygenation via oximetry with SpO2 >92 by 06/13/17. 9. will meet 75% of predicted incentive spirometer goal of 2500 by 06/13/17. 10. Will maintain airway and adequate ventilation with use of NIV and wean off by 06/13/17. 11. Pt will be supervision for grooming and functional transfers by 06/12/17 STRATEGY TO ACHIEVE GOALS: - Patient will participate in PT activities - Assess pain q4h and PRN. Medicate PRN and re-evaluate pain 30-60 minutes after and re-med icate PRN. Assist with repositioning for comfort. - Assess CMS q4h and PRN. Notify MD if abnormalities are found. - Assist up to bedside commode and chair on post-op day one, encourage ambulation to bathro om and in halls as appropriate. Use FWW and staff assist for safety. - Start pt on clear liquids when he arrives to the floor and advance to general texture as he tolerates. Medicate with anti-emetics PRN. - Assess dressing and vitals with temps q4h and PRN. Monitor lab work as ordered. Notify MD with concerns. - Assess bowel tones q shift and PRN. Encourage fluid intake and ambulation to help promote BM. Monitor for bowel movements and if no BM by POD2 use PRN bowel protocol. - Monitor saturations via oximetry and titrate to order as indicated. - Instruct patient how use of Incentive Spirometry and deep breath and cough. Nursing and Respiratory to work together to have patient use every hour while awake. Respiratory to mon itor progress 4 times daily until 75% goal met then turn over to nursing. -Pt will participate in OT POC Occupational Therapy Plan of Care Treatment, Discharge Note Summary: Patrice has been participating in occupational therapy for treatment of impaired A DL performance and functional mobility s/p posteriolateral total L hip arthroplasty. Emphas is of session included grooming tasks, review of lumbar precautions, and AE for ADLs. Karla nt demonstrates progress towards functional goals as evidenced by improving independence, ac curate recall of lumbar precautions, and expresses that he has no further concerns. Remaini ng barriers to discharge and functional limitations include decreased functional transfers, decreased ability to perform ADLs, decreased ability to perform IADLs and demonstrating need for 24/7 supervision. Patrice will benefit from continued therapeutic intervention to address ongoing impairments an d increase safety and independence with activities necessary for safe discharge. Refer alexander pagan for specific details regarding functional levels. Occupational Therapy Discharge Recommendations are: Recommended discharge disposition: home with assist Post discharge occupational therapy recommendation: family involved/supportive, home healt h, pt is motivated participant Equipment Recommendations: none (Pt has all needed equipment) Planned Interventions:ADL retraining, bed mobility training, transfer training Recommended Frequency: other (see comments) (See one more time before D/C) Patient Status/Goals: Reflects last filed data and may be from multiple contributors. ADLs Pt declined perfoming ADLs other than grooming at sink with Supervision today. 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 Grooming, Level of Grand: supervised Assistive Device: none Bed Mobility Assistive Device: bed rails Scoot/Bridge, Level of Grand: modified independent Supine to Sit, Level of Grand: modified independent Sit to Supine, Level of Grand: stand by assist, verbal cues required Safety Issues: decreased use of legs for bridging/pushing Impairments: decreased flexibility, pain Transfers Pt states he has new living room furniture, advised him that he may consider putting a piec e of plywood under sofa cushions fo rbetter support, use furniture lifts to increase height of a sofa or chair, and to put a 2x4 under armrests of a rocker recliner to decrease forward tipping of seat when transferring out of it. Sit-Stand, Level of Grand: supervised Stand-Sit, Level of Grand: supervised [id number], Assistive Device: 2 wheeled walker (FWW) Maintain Weight Bearing Status: cues to maintain weight bearing status Safety Issues: weight-shifting ability decreased Impairments: decreased flexibility, pain OT Goal Review Date Most Recent Value STG Review Date 06/12/17 at 06/08/2017 0844 Grooming Goal Most Recent Value STG Status met at 06/09/2017 1456 STG Grand Level supervised at 06/08/2017 0844 STG Position supported standing at 06/08/2017 0844 LB Dressing Goal Most Recent Value STG Status new at 06/08/2017 0844 STG Grand Level modified independent, set up required at 06/08/2017 0844 STG Adaptive Equipment dressing stick, sock-aid at 06/08/2017 0844 Tub/Shower Transfer Goal Most Recent Value Tub/Shower Type tub/shower combo at 06/08/2017 0844 STG Status new at 06/08/2017 0844 STG Grand Level supervised at 06/08/2017 0844 STG Assistive Device 2 wheeled walker (FWW), tub bench at 06/08/2017 0844 Electronically signed by: Joby Plata OT, 06/09/2017 15:19 lan of Care - Charlene Fajardo LICSW - 06/09/2017 2:46 PM PDTDischarge Planning / Case Management: Follow up visit with patient who is lying in bed, states he has been up with therapies, fee ls he is doing better today. Legal Summer Intern inquired about his front wheeled walker, patient states that does not need a walker. States that the one they have at home "will work just fine". Legal Summer Intern again encouraged him to have his bring it in to insure it is the correct height and in good repair. Plan: Home with spouse, no identified needs Electronically signed by: ISAIAH Wheeler 06/09/2017 14:54 lan of Care - Ramsey Mueller, PT - 06/09/2017 10:33 AM PDTFormatting of this note might be different fr om the original. Problem: Patient Care Overview (Adult) Goal: Care Team Goals & Evaluation PROBLEM-RELATED GOALS: 1. Patrice will be modified independent with ambulation in the hallway by 06/11/2017 2. Patrice's pain will be scored at 3 out of 10 by 06/09. 3. Patrice's Sensation to lower extremities will return to pt's baseline by 06/09. 4. Patrice will ambulate with staff by 06/08. 5. Patrice will tolerate a general textured diet by 06/08. 6. Patrice will be free from s/s of infection through 06/10. 7. Patrice will have BM by 06/09. 8. Patrice will maintain adequate oxygenation via oximetry with SpO2 >92 by 06/13/17. 9. will meet 75% of predicted incentive spirometer goal of 2500 by 06/13/17. 10. Will maintain airway and adequate ventilation with use of NIV and wean off by 06/13/17. 11. Pt will be supervision for grooming and functional transfers by 06/12/17 STRATEGY TO ACHIEVE GOALS: - Patient will participate in PT activities - Assess pain q4h and PRN. Medicate PRN and re-evaluate pain 30-60 minutes after and re-med icate PRN. Assist with repositioning for comfort. - Assess CMS q4h and PRN. Notify MD if abnormalities are found. - Assist up to bedside commode and chair on post-op day one, encourage ambulation to bathro om and in halls as appropriate. Use FWW and staff assist for safety. - Start pt on clear liquids when he arrives to the floor and advance to general texture as he tolerates. Medicate with anti-emetics PRN. - Assess dressing and vitals with temps q4h and PRN. Monitor lab work as ordered. Notify MD with concerns. - Assess bowel tones q shift and PRN. Encourage fluid intake and ambulation to help promote BM. Monitor for bowel movements and if no BM by POD2 use PRN bowel protocol. - Monitor saturations via oximetry and titrate to order as indicated. - Instruct patient how use of Incentive Spirometry and deep breath and cough. Nursing and Respiratory to work together to have patient use every hour while awake. Respiratory to mon itor progress 4 times daily until 75% goal met then turn over to nursing. -Pt will participate in OT POC Outcome: Improving Physical Therapy Plan of Care Treatment Note Summary: Patrice has been participating in physical therapy for treatment of Impaired funct ional mobility, decreased flexibility, decreased strength, impaired balance, and pain follow ing elective left total hip arthroplasty. Patient is now posterior hip precautions.. Empha sis of session included bed mobility, transfer training, gait training, stair training, bed mobility compensation techniques. Patient demonstrates progress towards functional goals as evidenced by requiring less physical assistance with bed mobility, transfer training is now supervision. Remaining barriers to discharge and functional limitations include decreased gait velocity and stairs at home. Patrice will benefit from continued therapeutic intervention to address ongoing impairments an d increase safety and independence with activities necessary for safe discharge. Refer alexander pagan for specific details regarding functional levels. Physical Therapy Discharge Recommendations are: Recommended discharge disposition: home with assist Post discharge physical therapy recommendation: pt is motivated participant, family involv ed/supportive Equipment Recommendations: 2 wheeled walker (FWW) Planned Interventions: balance training, bed mobility training, gait training, patient/fam carmella education, stair training, transfer training Recommended Frequency: (1 2 times day) Patient Status/Goals: Reflects last filed data and may be from multiple contributors. Gait Supervision for safety due to hip pain, decreased flexibility. Cues on even step length an d normalize gait. She demonstrating moderate improvement in stride length and step length. Level of Grand: supervised Assistive Device: 2 wheeled walker (FWW) Distance (feet): 150 feet Gait Pattern Analysis: 3-point gait Gait Deviations: step length decreased, stride length decreased Safety Issues: weight-shifting ability decreased Stairs Six-inch platform step Number of Stairs: 1 6 Handrail Location: none Level of Grand: supervised Assistive Device: 2 wheeled walker (FWW) Technique Used: step to step (ascending), step to step (descending) Maintain Weight Bearing Status: able to maintain weight bearing status Safety Issues: weight-shifting ability decreased Impairments: decreased flexibility, pain Transfers No physical assistance necessary. Bed-Chair, Level of Grand: supervised Chair-Bed, Level of Grand: supervised [id number], Assistive Device: 2 wheeled walker (FWW) Sit-Stand, Level of Grand: supervised Stand-Sit, Level of Grand: supervised [id number], Assistive Device: 2 wheeled walker (FWW) Maintain Weight Bearing Status: able to maintain weight bearing status Safety Issues: weight-shifting ability decreased Impairments: decreased flexibility, pain Bed Mobility Instructed patient on assisting surgical leg with towel or sheet. Patient able to demonstr ate independence with lifting surgical leg back into bed using the leg plant etiologist technique. Assistive Device: bed rails Scoot/Bridge, Level of Grand: modified independent Supine to Sit, Level of Grand: modified independent Sit to Supine, Level of Grand: stand by assist, verbal cues required Safety Issues: decreased use of legs for bridging/pushing Impairments: decreased flexibility, pain Balance Sitting Balance: Static: good balance Sitting Balance: Dynamic: good balance Standing Balance: Static: fair balance Standing Balance: Dynamic: fair balance PT Goal Review Date Most Recent Value STG Review Date 06/10/17 at 06/07/2017 1600 [id number] Goal Most Recent Value STG Status progressing at 06/09/2017 1033 STG Grand Level modified independent at 06/07/2017 1600 STG Assistive Device none at 06/07/2017 1600 [id number] Goal Most Recent Value STG Status progressing at 06/09/2017 1033 STG Grand Level modified independent at 06/07/2017 1600 STG Assistive Device 2 wheeled walker (FWW) at 06/07/2017 1600 Gait Goal Most Recent Value STG Status progressing at 06/09/2017 1033 STG Grand Level modified independent at 06/07/2017 1600 STG Assistive Device 2 wheeled walker (FWW) at 06/07/2017 1600 STG Distance (feet) 100 feet at 06/07/2017 1600 Stair Goal Most Recent Value STG Status progressing at 06/09/2017 1033 STG Grand Level modified independent at 06/07/2017 1600 STG Assistive Device 1 rail at 06/07/2017 1600 STG Number of Stairs 4 at 06/07/2017 1600 Additional Goal #1 PT Most Recent Value STG Status met at 06/09/2017 1033 STG Patient and spouse will be independent with posterior total hip arthroplasty precautio ns. at 06/07/2017 1600 Electronically signed by: Ramsey Rucker, PT, 06/09/2017 12:57 lan of Care - Anshu Yeni Tejada RN - 06/09/2017 5:28 AM PDTProblem: Patient Care Overview (Adult) Goal: Care Team Goals & Evaluation PROBLEM-RELATED GOALS: 1. Patrice will be modified independent with ambulation in the hallway by 06/11/2017 2. Patrice's pain will be scored at 3 out of 10 by 06/09. 3. Patrice's Sensation to lower extremities will return to pt's baseline by 06/09. 4. Patrice will ambulate with staff by 06/08. 5. Patrice will tolerate a general textured diet by 06/08. 6. Patrice will be free from s/s of infection through 06/10. 7. Patrice will have BM by 06/09. 8. Patrice will maintain adequate oxygenation via oximetry with SpO2 >92 by 06/13/17. 9. will meet 75% of predicted incentive spirometer goal of 2500 by 06/13/17. 10. Will maintain airway and adequate ventilation with use of NIV and wean off by 06/13/17. 11. Pt will be supervision for grooming and functional transfers by 06/12/17 STRATEGY TO ACHIEVE GOALS: - Patient will participate in PT activities - Assess pain q4h and PRN. Medicate PRN and re-evaluate pain 30-60 minutes after and re-med icate PRN. Assist with repositioning for comfort. - Assess CMS q4h and PRN. Notify MD if abnormalities are found. - Assist up to bedside commode and chair on post-op day one, encourage ambulation to bathro om and in halls as appropriate. Use FWW and staff assist for safety. - Start pt on clear liquids when he arrives to the floor and advance to general texture as he tolerates. Medicate with anti-emetics PRN. - Assess dressing and vitals with temps q4h and PRN. Monitor lab work as ordered. Notify MD with concerns. - Assess bowel tones q shift and PRN. Encourage fluid intake and ambulation to help promote BM. Monitor for bowel movements and if no BM by POD2 use PRN bowel protocol. - Monitor saturations via oximetry and titrate to order as indicated. - Instruct patient how use of Incentive Spirometry and deep breath and cough. Nursing and Respiratory to work together to have patient use every hour while awake. Respiratory to mon itor progress 4 times daily until 75% goal met then turn over to nursing. -Pt will participate in OT POC Outcome: Improving Goal Evaluation: One person assist with fww for mobility, tucker discontinued voiding without problems, drsg clean and dry to left hip, room air, lungs clear. Tylenol and ice given per pain with pt req uest. Cms intact to BLE. lan of Care - Ramsey Rucker, PT - 06/08/2017 5:34 PM PDT Problem: Patient Care Overview (Adult) Goal: Care Team Goals & Evaluation PROBLEM-RELATED GOALS: 1. Patrice will be modified independent with ambulation in the hallway by 06/11/2017 2. Patrice's pain will be scored at 3 out of 10 by 06/09. 3. Patrice's Sensation to lower extremities will return to pt's baseline by 06/09. 4. Patrice will ambulate with staff by 06/08. 5. Patrice will tolerate a general textured diet by 06/08. 6. Patrice will be free from s/s of infection through 06/10. 7. Patrice will have BM by 06/09. 8. Patrice will maintain adequate oxygenation via oximetry with SpO2 >92 by 06/13/17. 9. will meet 75% of predicted incentive spirometer goal of 2500 by 06/13/17. 10. Will maintain airway and adequate ventilation with use of NIV and wean off by 06/13/17. 11. Pt will be supervision for grooming and functional transfers by 06/12/17 STRATEGY TO ACHIEVE GOALS: - Patient will participate in PT activities - Assess pain q4h and PRN. Medicate PRN and re-evaluate pain 30-60 minutes after and re-med icate PRN. Assist with repositioning for comfort. - Assess CMS q4h and PRN. Notify MD if abnormalities are found. - Assist up to bedside commode and chair on post-op day one, encourage ambulation to bathro om and in halls as appropriate. Use FWW and staff assist for safety. - Start pt on clear liquids when he arrives to the floor and advance to general texture as he tolerates. Medicate with anti-emetics PRN. - Assess dressing and vitals with temps q4h and PRN. Monitor lab work as ordered. Notify MD with concerns. - Assess bowel tones q shift and PRN. Encourage fluid intake and ambulation to help promote BM. Monitor for bowel movements and if no BM by POD2 use PRN bowel protocol. - Monitor saturations via oximetry and titrate to order as indicated. - Instruct patient how use of Incentive Spirometry and deep breath and cough. Nursing and Respiratory to work together to have patient use every hour while awake. Respiratory to mon itor progress 4 times daily until 75% goal met then turn over to nursing. -Pt will participate in OT POC Outcome: Improving Physical Therapy Plan of Care Treatment Note Summary: Patrice has been participating in physical therapy for treatment of Impaired funct ional mobility, decreased flexibility, decreased strength, impaired balance, and pain follow ing elective left total hip arthroplasty. Patient is now posterior hip precautions.. Empha sis of session included bed mobility, transfer training, gait training, balance training. P atient demonstrates progress towards functional goals as evidenced by pt able to ambulate 10 0 feet with SBA. Remaining barriers to discharge and functional limitations include decreas ed functional gait distance, decreased gait velocity, stairs at home and not yet able to mob ilize at level safe for home discharge. Patrice will benefit from continued therapeutic intervention to address ongoing impairments an d increase safety and independence with activities necessary for safe discharge. Refer alexander pagan for specific details regarding functional levels. [facility] BASIC MOBILITY [facility] BASIC MOBILITY Turning over in bed: no assistance required Sitting down /standing up from arm chair: no assistance required Moving from supine to sitting on edge of bed: a little difficulty without assistance Moving to and from a bed to a chair : min assist, CGA, SBA, Supervision/a little help Walking in hospital room: min assist, CGA, SBA, Supervision/a little help Climbing 3-5 steps with a railing: min assist, CGA, SBA, Supervision/a little help TOTAL - [facility] BASIC MOBILITY : 20 Completed the [facility] Activity Measure for Post Acute Care (-PAC) "6 Clicks" Ba sic Mobility Inpatient Short Form. This version of the AM-PAC is an assessment tool used to measure a person's level of disability in performing basic mobility tasks. This patient's score indicates a performance of 35.83% impairment in the functioning of basic mobility. Raw Score - Functional Limitation % (for CMS) - "Severity Modifier" CN 6 - 100.00 CM 7 - 92.36 8 - 86.62 9 - 81.38 CL 10 - 76.75 11 - 72.57 12 - 68.66 13 - 64.91 14 - 61.29 CK 15 - 57.70 16 - 54.16 17 - 50.57 18 - 46.58 19 - 41.77 CJ 20 - 35.83 21 - 28.97 22 - 20.91 CI 23 - 11.2 CH 24 - 0.00 Predicted Discharge During Acute Hospitalization (Raw Score) Home = 20.1 With assist = 17.9 SNF = 14 IRF = 13.6 LTAC = 11.5 Physical Therapy Discharge Recommendations are: Recommended discharge disposition: home with assist Post discharge physical therapy recommendation: pt is motivated participant, family involv ed/supportive Equipment Recommendations: 2 wheeled walker (FWW) Planned Interventions: balance training, bed mobility training, gait training, patient/fam carmella education, stair training, transfer training Recommended Frequency: (1 2 times day) Patient Status/Goals: Reflects last filed data and may be from multiple contributors. Gait SBA for safety due to pain and decreased flexibility. Level of Grand: stand by assist Assistive Device: 2 wheeled walker (FWW) Distance (feet): 100 feet x 2 Gait Pattern Analysis: 3-point gait Gait Deviations: step length decreased, stride length decreased Safety Issues: weight-shifting ability decreased Transfers No physical assistance necessary. Sit-Stand, Level of Grand: stand by assist Stand-Sit, Level of Grand: stand by assist [id number], Assistive Device: 2 wheeled walker (FWW) Toilet, Level of Grand: minimal assist (75% patient effort) Toilet, Assistive Device: 4 wheeled walker (4WW) Maintain Weight Bearing Status: assist to maintain weight bearing status Safety Issues: weight-shifting ability decreased Impairments: decreased flexibility, pain Bed Mobility No physical assistance necessary, he requires extra time and effort due to hip pain and dec reased flexibility. Verbal cues for technique and reminders for posterior hip precautions Assistive Device: bed rails Scoot/Bridge, Level of Grand: supervised, verbal cues required Supine to Sit, Level of Grand: supervised, verbal cues required Sit to Supine, Level of Grand: not tested Safety Issues: decreased use of legs for bridging/pushing Impairments: decreased flexibility, pain Balance Sitting Balance: Static: good balance Sitting Balance: Dynamic: good balance Standing Balance: Static: fair balance Standing Balance: Dynamic: fair balance Therapeutic Exercise Dynamic balance in standing x 10 min Functional Endurance Fair, for activities performed. PT Goal Review Date Most Recent Value STG Review Date 06/10/17 at 06/07/2017 1600 [id number] Goal Most Recent Value STG Status progressing at 06/08/2017 1729 STG Grand Level modified independent at 06/07/2017 1600 STG Assistive Device none at 06/07/2017 1600 [id number] Goal Most Recent Value STG Status progressing at 06/08/2017 1729 STG Grand Level modified independent at 06/07/2017 1600 STG Assistive Device 2 wheeled walker (FWW) at 06/07/2017 1600 Gait Goal Most Recent Value STG Status progressing at 06/08/2017 1253 STG Grand Level modified independent at 06/07/2017 1600 STG Assistive Device 2 wheeled walker (FWW) at 06/07/2017 1600 STG Distance (feet) 100 feet at 06/07/2017 1600 Stair Goal Most Recent Value STG Status progressing at 06/08/2017 1729 STG Grand Level modified independent at 06/07/2017 1600 STG Assistive Device 1 rail at 06/07/2017 1600 STG Number of Stairs 4 at 06/07/2017 1600 Additional Goal #1 PT Most Recent Value STG Status progressing at 06/08/2017 1729 STG Patient and spouse will be independent with posterior total hip arthroplasty precautio ns. at 06/07/2017 1600 Electronically signed by: Ramsey Rucker, PT, 06/08/2017 17:31 lan of Care - Grazyna Christy RN - 06/08/2017 4:30 PM PDTProblem: Patient Care Overview (Adult) Goal: Care Team Goals & Evaluation PROBLEM-RELATED GOALS: 1. Patrice will be modified independent with ambulation in the hallway by 06/11/2017 2. Patrice's pain will be scored at 3 out of 10 by 06/09. 3. Patrice's Sensation to lower extremities will return to pt's baseline by 06/09. 4. Patrice will ambulate with staff by 06/08. 5. Patirce will tolerate a general textured diet by 06/08. 6. Patrice will be free from s/s of infection through 06/10. 7. Patrice will have BM by 06/09. 8. Patrice will maintain adequate oxygenation via oximetry with SpO2 >92 by 06/13/17. 9. will meet 75% of predicted incentive spirometer goal of 2500 by 06/13/17. 10. Will maintain airway and adequate ventilation with use of NIV and wean off by 06/13/17. 11. Pt will be supervision for grooming and functional transfers by 06/12/17 STRATEGY TO ACHIEVE GOALS: - Patient will participate in PT activities - Assess pain q4h and PRN. Medicate PRN and re-evaluate pain 30-60 minutes after and re-med icate PRN. Assist with repositioning for comfort. - Assess CMS q4h and PRN. Notify MD if abnormalities are found. - Assist up to bedside commode and chair on post-op day one, encourage ambulation to bathro om and in halls as appropriate. Use FWW and staff assist for safety. - Start pt on clear liquids when he arrives to the floor and advance to general texture as he tolerates. Medicate with anti-emetics PRN. - Assess dressing and vitals with temps q4h and PRN. Monitor lab work as ordered. Notify MD with concerns. - Assess bowel tones q shift and PRN. Encourage fluid intake and ambulation to help promote BM. Monitor for bowel movements and if no BM by POD2 use PRN bowel protocol. - Monitor saturations via oximetry and titrate to order as indicated. - Instruct patient how use of Incentive Spirometry and deep breath and cough. Nursing and Respiratory to work together to have patient use every hour while awake. Respiratory to mon itor progress 4 times daily until 75% goal met then turn over to nursing. -Pt will participate in OT POC Goal Evaluation: Patrice reports mild pain today that is well managed with Ice packs and Tylenol. CMS is intac t, strong dorsal/plantar flexion, brisk cap refill. Dressing to left hip CDI. Tucker patent with good output. General diet tolerated well. VSS, 93% SpO2 on RA. SBA with FWW to BSC and with Therapy today. Bowel movement today. Abduction pillow remains in place, and poste rior hip precautions followed and understood by patient. Compression stockings and SCD's in place for DVT prophylaxis. Calls appropriately to make needs known. No falls this shift. lan of Care - Charlene Mehta LICSW - 06/08/2017 4:19 PM PDTDischarge Planning Goal: Pt to be discharged in a safe manner Summary /Intervention: Met with patient and his , Gely. Pt is lying in bed, he is alert, well oriented, pleas ant and engaging. He lives in [place] in their single level home Pt states he has been using a 4 wheeled walker at home ( "brake is broken"). He has borrowed a front wheeled walker. Legal [employer] Intern asked his to bring this walker in for PT to assess ( height, condition). Legal Summer Intern discussed Rx for a walker, offered to send in prescription to have a new walker delamerica chey. Pt and his request that a new walker not be ordered at this time as they feel th eir borrowed walker is adequate. Preferred pharmacy is [facility] in [place] Primary care provider is Santi Dumont Pt has a CPAP at home ( [facility]). Plan: Home with spouse Legal Summer Intern to check with patient regarding walker. Spouse to bring in tomorrow Electronically signed by: ISAIAH Wheeler 06/08/2017 16:20 nesthesia Pain Management - Temo Ramires MD - 06/08/2017 2:53 PM PDTProseattle va medical centerce [facility] Neuraxial Opioid Follow-Up Pain level: Mild The patient had no complaints in the last 24 hours. The patient has no additional complain ts at this time. The patient is in no acute distress. Recent vitals Temp: 37.6 C (99.7 F) Pulse: 72 Resp: 16 BP: 117/71 SpO2: 92 % CPAP, home unit, room air Min/Max temp Temp Av.6 C (99.7 F) Min: 37.3 C (99.1 F) Max: 37.9 C (100. 3 F) @ The patient is able to move all four extremities. Tucker: out. Status post spinal morphine PF The patient is doing well. Continue pain medications per surgeon/primary team. There is no apparent anesthetic complication noted at this time. Pain was under good control for duration of SAB narcotics. lan of Care - Pato carney Ramsey Katerin, PT - 06/08/2017 11:00 AM PDT Problem: Patient Care Overview (Adult) Goal: Care Team Goals & Evaluation PROBLEM-RELATED GOALS: 1. Patrice will be modified independent with ambulation in the hallway by 06/11/2017 2. Patrice's pain will be scored at 3 out of 10 by 06/09. 3. Patrice's Sensation to lower extremities will return to pt's baseline by 06/09. 4. Patrice will ambulate with staff by 06/08. 5. Patrice will tolerate a general textured diet by 06/08. 6. Patrice will be free from s/s of infection through 06/10. 7. Patrice will have BM by 06/09. 8. Patrice will maintain adequate oxygenation via oximetry with SpO2 >92 by 06/13/17. 9. will meet 75% of predicted incentive spirometer goal of 2500 by 06/13/17. 10. Will maintain airway and adequate ventilation with use of NIV and wean off by 06/13/17. 11. Pt will be supervision for grooming and functional transfers by 06/12/17 STRATEGY TO ACHIEVE GOALS: - Patient will participate in PT activities - Assess pain q4h and PRN. Medicate PRN and re-evaluate pain 30-60 minutes after and re-med icate PRN. Assist with repositioning for comfort. - Assess CMS q4h and PRN. Notify MD if abnormalities are found. - Assist up to bedside commode and chair on post-op day one, encourage ambulation to bathro om and in halls as appropriate. Use FWW and staff assist for safety. - Start pt on clear liquids when he arrives to the floor and advance to general texture as he tolerates. Medicate with anti-emetics PRN. - Assess dressing and vitals with temps q4h and PRN. Monitor lab work as ordered. Notify MD with concerns. - Assess bowel tones q shift and PRN. Encourage fluid intake and ambulation to help promote BM. Monitor for bowel movements and if no BM by POD2 use PRN bowel protocol. - Monitor saturations via oximetry and titrate to order as indicated. - Instruct patient how use of Incentive Spirometry and deep breath and cough. Nursing and Respiratory to work together to have patient use every hour while awake. Respiratory to mon itor progress 4 times daily until 75% goal met then turn over to nursing. -Pt will participate in OT POC Outcome: Improving Physical Therapy Plan of Care Treatment Note Summary: Patrice has been participating in physical therapy for treatment of Impaired funct ional mobility, decreased flexibility, decreased strength, impaired balance, and pain follow ing elective left total hip arthroplasty. Patient is now posterior hip precautions.. Empha sis of session included bed mobility, transfer training, gait training, step training, poste rior hip precautions. Patient demonstrates progress towards functional goals as evidenced b y patient requires less physical assistance with bed mobility transfers, gait, patient able to ascend/ descend a 6 inch step. Remaining barriers to discharge and functional limitation s include decreased functional transfers, decreased functional gait distance, decreased gait velocity, stairs at home and not yet able to mobilize at level safe for home discharge as s een in continuing to require 1 person physical assistance with mobility. Patrice will benefit from continued therapeutic intervention to address ongoing impairments an d increase safety and independence with activities necessary for safe discharge. Refer alexander pagan for specific details regarding functional levels. Physical Therapy Discharge Recommendations are: Recommended discharge disposition: home with assist Post discharge physical therapy recommendation: pt is motivated participant, family involv ed/supportive Equipment Recommendations: 2 wheeled walker (FWW) Planned Interventions: balance training, bed mobility training, gait training, patient/fam carmella education, stair training, transfer training Recommended Frequency: (1 2 times day) Patient Status/Goals: Reflects last filed data and may be from multiple contributors. Gait Contact-guard assist for safety due to leg pain, decreased flexibility. Verbal cues for no rmalizing gait pattern Level of Grand: contact guard assist Assistive Device: 2 wheeled walker (FWW) Distance (feet): 50 feet 2 Gait Pattern Analysis: 3-point gait Gait Deviations: step length decreased, stride length decreased Safety Issues: weight-shifting ability decreased Stairs Six-inch platform step Number of Stairs: 1 x 3 Handrail Location: none Level of Grand: contact guard assist, verbal cues required Assistive Device: 2 wheeled walker (FWW) Technique Used: step to step (ascending), step to step (descending) Maintain Weight Bearing Status: able to maintain weight bearing status Safety Issues: weight-shifting ability decreased Impairments: decreased flexibility, pain Transfers No physical assistance necessary. Bed-Chair, Level of Grand: stand by assist Chair-Bed, Level of Grand: not tested [id number], Assistive Device: 2 wheeled walker (FWW) Sit-Stand, Level of Grand: stand by assist Stand-Sit, Level of Grand: stand by assist [id number], Assistive Device: 2 wheeled walker (FWW) Toilet, Level of Grand: minimal assist (75% patient effort) Toilet, Assistive Device: 4 wheeled walker (4WW) Maintain Weight Bearing Status: assist to maintain weight bearing status Safety Issues: weight-shifting ability decreased Impairments: decreased flexibility, pain Bed Mobility No physical assistance necessary, he requires extra time and effort due to hip pain and dec reased flexibility. Verbal cues for technique and reminders for posterior hip precautions Assistive Device: bed rails Scoot/Bridge, Level of Grand: supervised, verbal cues required Supine to Sit, Level of Grand: supervised, verbal cues required Sit to Supine, Level of Grand: not tested Safety Issues: decreased use of legs for bridging/pushing Impairments: decreased flexibility, pain Balance Sitting Balance: Static: good balance Sitting Balance: Dynamic: good balance Standing Balance: Static: fair balance Standing Balance: Dynamic: fair balance PT Goal Review Date Most Recent Value STG Review Date 06/10/17 at 06/07/2017 1600 [id number]-Oks-Ppuuze Goal Most Recent Value STG Status progressing at 06/08/2017 1253 STG Grand Level modified independent at 06/07/2017 1600 STG Assistive Device none at 06/07/2017 1600 Vzv-Ieoyx-Zyh Goal Most Recent Value STG Status progressing at 06/08/2017 1253 STG Grand Level modified independent at 06/07/2017 1600 STG Assistive Device 2 wheeled walker (FWW) at 06/07/2017 1600 Gait Goal Most Recent Value STG Status progressing at 06/08/2017 1253 STG Grand Level modified independent at 06/07/2017 1600 STG Assistive Device 2 wheeled walker (FWW) at 06/07/2017 1600 STG Distance (feet) 100 feet at 06/07/2017 1600 Stair Goal Most Recent Value STG Status progressing at 06/08/2017 1253 STG Grand Level modified independent at 06/07/2017 1600 STG Assistive Device 1 rail at 06/07/2017 1600 STG Number of Stairs 4 at 06/07/2017 1600 Additional Goal #1 PT Most Recent Value STG Status progressing at 06/08/2017 1253 STG Patient and spouse will be independent with posterior total hip arthroplasty precautio ns. at 06/07/2017 1600 Electronically signed by: Ramsey Rucker, PT, 06/08/2017 12:55 lan of Care - Keke Gifford OT - 06/08/2017 9:20 AM PDT Problem: Patient Care Overview (Adult) Goal: Care Team Goals & Evaluation PROBLEM-RELATED GOALS: 1. Patrice will be modified independent with ambulation in the hallway by 06/11/2017 2. Patrice's pain will be scored at 3 out of 10 by 06/09. 3. Patrice's Sensation to lower extremities will return to pt's baseline by 06/09. 4. Patrice will ambulate with staff by 06/08. 5. Patrice will tolerate a general textured diet by 06/08. 6. Patrice will be free from s/s of infection through 06/10. 7. Patrice will have BM by 06/09. 8. Patrice will maintain adequate oxygenation via oximetry with SpO2 >92 by 06/13/17. 9. will meet 75% of predicted incentive spirometer goal of 2500 by 06/13/17. 10. Will maintain airway and adequate ventilation with use of NIV and wean off by 06/13/17. 11. Pt will be supervision for grooming and functional transfers by 06/12/17 STRATEGY TO ACHIEVE GOALS: - Patient will participate in PT activities - Assess pain q4h and PRN. Medicate PRN and re-evaluate pain 30-60 minutes after and re-med icate PRN. Assist with repositioning for comfort. - Assess CMS q4h and PRN. Notify MD if abnormalities are found. - Assist up to bedside commode and chair on post-op day one, encourage ambulation to bathro om and in halls as appropriate. Use FWW and staff assist for safety. - Start pt on clear liquids when he arrives to the floor and advance to general texture as he tolerates. Medicate with anti-emetics PRN. - Assess dressing and vitals with temps q4h and PRN. Monitor lab work as ordered. Notify MD with concerns. - Assess bowel tones q shift and PRN. Encourage fluid intake and ambulation to help promote BM. Monitor for bowel movements and if no BM by POD2 use PRN bowel protocol. - Monitor saturations via oximetry and titrate to order as indicated. - Instruct patient how use of Incentive Spirometry and deep breath and cough. Nursing and Respiratory to work together to have patient use every hour while awake. Respiratory to mon itor progress 4 times daily until 75% goal met then turn over to nursing. -Pt will participate in OT POC Occupational Therapy Plan of Care Initial Evaluation, Treatment Note Summary: Patrice presents to occupational therapy with impaired ADL performance and functio nal mobility s/p posteriolateral total L hip arthroplasty. Objective exam reveals impairmen ts with ergonomics and body mechanics, gait, locomotion, and balance, joint integrity and mo bility, ROM, ADL participation. Session focused on functional mobility and transfers in room , toileting, and bed mobility. Barriers to discharge and functional limitations include dec reased functional activity tolerance, decreased bed mobility, decreased functional transfers , decreased ability to perform ADLs, decreased ability to perform IADLs, unsafe discharge di sposition and not yet able to mobilize at level safe for home discharge. Patrice will benefit from therapeutic intervention to address impairments and increase safety and independence with activities necessary for safe discharge. Refer below for specific det ails regarding functional levels. Precautions/Limitations: left posterior hip precautions Precaution Comment: Pt is aware of his precautions Left Lower Extremity Weight-Bearing: weight-bearing as tolerated Right Lower Extremity Weight-Bearing: full weight-bearing Previous Level of Function: Transferring: independent Ambulation: independent Toileting: independent Bathing: independent Dressing: independent Eating: independent Communication: understands/communicates without difficulty Swallowin-->swallows foods/liquids without difficulty Equipment Currently Used at Home: 4 wheeled walker (4WW), bath bench Prior Functional Level Comment: Pt reports that the 4WW is too fast for him at this point. Pt was independent with most tasks, had some assistance with showering. Pt reports that he w as walking with a limp for over a year and had adapted to walking around. Potential available assistance at discharge: Significant Relationships: spouse Living Environment/Accessibility: Lives With: spouse Living Arrangements: house Home Accessibility: stairs within home, tub/shower is not walk in Number of Stairs to Enter Home: 4 Financial Concerns: none Transportation Available: car, family or friend will provide Patient/Family s Goals: Pt wants to return home with family Rehabilitation potential: good, to achieve stated therapy goals Occupational Therapy Discharge Recommendations are: Recommended discharge disposition: home with assist. Pt lives with spouse and two working children. Post discharge occupational therapy recommendation: family involved/supportive, home healt h, pt is motivated participant. Equipment Recommendations: none (Pt has all needed equipment) Planned Interventions:ADL retraining, bed mobility training, transfer training Recommended Frequency: other (see comments) (See one more time before D/C) Patient Status/Goals: Reflects last filed data and may be from multiple contributors. ADLs Pt reports that he has a air operations manager and sock aid at home from past surgeries and knows how to use them. He reported that he uses salad tongs for toilet hygiene as he cannot reach around to wipe. Pt required assistance for toilet hygiene Toileting, Level of Grand: maximal assist (25% patient effort) Assistive Device: bedside commode Toileting Assess/Train, Position: sitting, standing Toileting Assess/Train, Impairments: decreased flexibility, ROM decreased, strength decreas ed Cognitive Mood/Behavior: calm, cooperative Orientation: oriented x 4 Bed Mobility Pt able to complete bed mobility with CGA for safety and maintaining hip precautions from s upine to sit, but required assistance for getting legs back into bed. He did well with remem bering precautions, just needing a reminder for not going past 90 degrees flexion. Assistive Device: bed rails Scoot/Bridge, Level of Grand: contact guard assist, verbal cues required Supine to Sit, Level of Grand: contact guard assist, verbal cues required Sit to Supine, Level of Grand: minimal assist (75% patient effort), verbal cues requ ired Safety Issues: decreased use of legs for bridging/pushing Impairments: decreased flexibility, impaired balance, ROM decreased, pain Transfers Sit-Stand, Level of Grand: contact guard assist, verbal cues required Stand-Sit, Level of Grand: verbal cues required, contact guard assist [id number], Assistive Device: 2 wheeled walker (FWW) Toilet, Level of Grand: contact guard assist, verbal cues required Toilet, Assistive Device: 2 wheeled walker (FWW), commode (3 in 1) Maintain Weight Bearing Status: cues to maintain weight bearing status Safety Issues: step length decreased, weight-shifting ability decreased Impairments: decreased flexibility, impaired balance ROM L UE ROM: WFL R UE ROM: WFL Strength L UE Strength: WFL R UE Strength: WFL OT Goal Review Date Most Recent Value STG Review Date 06/12/17 at 06/08/2017 0844 Grooming Goal Most Recent Value STG Status new at 06/08/2017 0844 STG Grand Level supervised at 06/08/2017 0844 STG Position supported standing at 06/08/2017 0844 LB Dressing Goal Most Recent Value STG Status new at 06/08/2017 0844 STG Grand Level modified independent, set up required at 06/08/2017 0844 STG Adaptive Equipment dressing stick, sock-aid at 06/08/2017 0844 Tub/Shower Transfer Goal Most Recent Value Tub/Shower Type tub/shower combo at 06/08/2017 0844 STG Status new at 06/08/2017 0844 STG Grand Level supervised at 06/08/2017 0844 STG Assistive Device 2 wheeled walker (FWW), tub bench at 06/08/2017 0844 Electronically signed by: Keke Bermeo OT, 06/08/2017 9:37 lan of Care - Melba Prado, NIGHT SHIFT - 06/08/2017 4:37 AM PDTProblem: Patient Care Overview (Adult) Goal: Care Team Goals & Evaluation PROBLEM-RELATED GOALS: 1. Patrice will be modified independent with ambulation in the hallway by 06/11/2017 2. Patrice's pain will be scored at 3 out of 10 by 06/09. 3. Patrice's Sensation to lower extremities will return to pt's baseline by 06/09. 4. Patrice will ambulate with staff by 06/08. 5. Patrice will tolerate a general textured diet by 06/08. 6. Patrice will be free from s/s of infection through 06/10. 7. Patrice will have BM by 06/09. 8. Patrice will maintain adequate oxygenation via oximetry with SpO2 >92 by 06/13/17. 9. will meet 75% of predicted incentive spirometer goal of 2500 by 06/13/17. 10. Will maintain airway and adequate ventilation with use of NIV and wean off by 06/13/17. STRATEGY TO ACHIEVE GOALS: - Patient will participate in PT activities - Assess pain q4h and PRN. Medicate PRN and re-evaluate pain 30-60 minutes after and re-med icate PRN. Assist with repositioning for comfort. - Assess CMS q4h and PRN. Notify MD if abnormalities are found. - Assist up to bedside commode and chair on post-op day one, encourage ambulation to bathro om and in halls as appropriate. Use FWW and staff assist for safety. - Start pt on clear liquids when he arrives to the floor and advance to general texture as he tolerates. Medicate with anti-emetics PRN. - Assess dressing and vitals with temps q4h and PRN. Monitor lab work as ordered. Notify MD with concerns. - Assess bowel tones q shift and PRN. Encourage fluid intake and ambulation to help promote BM. Monitor for bowel movements and if no BM by POD2 use PRN bowel protocol. - Monitor saturations via oximetry and titrate to order as indicated. - Instruct patient how use of Incentive Spirometry and deep breath and cough. Nursing and Respiratory to work together to have patient use every hour while awake. Respiratory to mon itor progress 4 times daily until 75% goal met then turn over to nursing. Goal Evaluation: Patrice was on 2 lpm O2 nc while awake. When placed on own autocpap [id number], no supplementa l oxygen required. Continuous oximeter in place at bedside-sao2 92-96%. BS appear clear, ach ieves 2500cc on IS, npc lan of Care - Yeni Cobos RN - 06/08/2017 4:24 AM PDTProblem: Patient Care Overview (Adult) Goal: Care Team Goals & Evaluation PROBLEM-RELATED GOALS: 1. Patrice will be modified independent with ambulation in the hallway by 06/11/2017 2. Patrice's pain will be scored at 3 out of 10 by 06/09. 3. Patrice's Sensation to lower extremities will return to pt's baseline by 06/09. 4. Patrice will ambulate with staff by 06/08. 5. Patrice will tolerate a general textured diet by 06/08. 6. Patrice will be free from s/s of infection through 06/10. 7. Patrice will have BM by 06/09. STRATEGY TO ACHIEVE GOALS: - Patient will participate in PT activities - Assess pain q4h and PRN. Medicate PRN and re-evaluate pain 30-60 minutes after and re-med icate PRN. Assist with repositioning for comfort. - Assess CMS q4h and PRN. Notify MD if abnormalities are found. - Assist up to bedside commode and chair on post-op day one, encourage ambulation to bathro om and in halls as appropriate. Use FWW and staff assist for safety. - Start pt on clear liquids when he arrives to the floor and advance to general texture as he tolerates. Medicate with anti-emetics PRN. - Assess dressing and vitals with temps q4h and PRN. Monitor lab work as ordered. Notify MD with concerns. - Assess bowel tones q shift and PRN. Encourage fluid intake and ambulation to help promote BM. Monitor for bowel movements and if no BM by POD2 use PRN bowel protocol. Outcome: Improving Goal Evaluation: abducter pillow inplace, denies pain, drsg clean and dry, cms intact, claudia general diet, fol ey draining cyu with good uo. lan of Care - Grazyna Harris RN - 06/07/2017 9:10 PM PDTProblem: Patient Care Overview (Adult) Goal: Care Team Goals & Evaluation PROBLEM-RELATED GOALS: 1. Patrice will be modified independent with ambulation in the hallway by 06/11/2017 2. Patrice's pain will be scored at 3 out of 10 by 06/09. 3. Patrice's Sensation to lower extremities will return to pt's baseline by 06/09. 4. Patrice will ambulate with staff by 06/08. 5. Patrice will tolerate a general textured diet by 06/08. 6. Patrice will be free from s/s of infection through 06/10. 7. Patrice will have BM by 06/09. STRATEGY TO ACHIEVE GOALS: - Patient will participate in PT activities - Assess pain q4h and PRN. Medicate PRN and re-evaluate pain 30-60 minutes after and re-med icate PRN. Assist with repositioning for comfort. - Assess CMS q4h and PRN. Notify MD if abnormalities are found. - Assist up to bedside commode and chair on post-op day one, encourage ambulation to bathro om and in halls as appropriate. Use FWW and staff assist for safety. - Start pt on clear liquids when he arrives to the floor and advance to general texture as he tolerates. Medicate with anti-emetics PRN. - Assess dressing and vitals with temps q4h and PRN. Monitor lab work as ordered. Notify MD with concerns. - Assess bowel tones q shift and PRN. Encourage fluid intake and ambulation to help promote BM. Monitor for bowel movements and if no BM by POD2 use PRN bowel protocol. Goal Evaluation: Patrice arrived to the floor at 1230 today, transferred via hovermat. A & O x 4. Mild numbnes s to BLE, that improved over shift to just toes. Able to wiggle toes, strong dorsal/plantar flexion, brisk cap refill. Dressing to left hip CDI. Denies any pain, ice pack to left hip in place. Tucker patent with c/y urine output. General diet tolerated well with no complica tions, denies n/v. VSS, on 2L nc at 97% SpO2. Up with CGA to BSC with FWW. Bowel tones act columba x 4, bowel movements this shift. Abduction pillow remains in place, as well as posterio r precautions. Compression stockings and SCD's in place for DVT prophylaxis. Calls appropr iately to make needs known. No falls this shift. lan of Care - PatonicoleRamsey sosa, PT - 06/07/2017 4:00 PM PDT Problem: Patient Care Overview (Adult) Goal: Care Team Goals & Evaluation PROBLEM-RELATED GOALS: 1. Patient will be modified independent with ambulation in the hallway by 06/11/2017 STRATEGY TO ACHIEVE GOALS: 1. Patient will participate in PT activities RESTRAINT-RELATED GOALS: STRATEGIES TO ACHIEVE RESTRAINT GOALS: Outcome: Improving Physical Therapy Plan of Care Initial Evaluation, Treatment Note Summary: Patrice presents to physical therapy with Impaired functional mobility, decreased flexibility, decreased strength, impaired balance, and pain following elective left total hi p arthroplasty. Patient is now posterior hip precautions.. Objective exam reveals impairme nts with ergonomics and body mechanics, gait, locomotion, and balance, joint integrity and m obility. Barriers to discharge and functional limitations include decreased bed mobility, d ecreased functional transfers, decreased functional gait distance, decreased gait velocity, stairs at home and not yet able to mobilize at level safe for home discharge as seen and fal l risk due to imbalance in standing and ambulation, patient continues to require one person assist with mobility and cannot receive that assistance from spouse. Patrice will benefit from therapeutic intervention to address impairments and increase safety and independence with activities necessary for safe discharge. Refer below for specific det ails regarding functional levels. Precautions/Limitations: left posterior hip precautions Left Lower Extremity Weight-Bearing: weight-bearing as tolerated Right Lower Extremity Weight-Bearing: full weight-bearing Previous Level of Function: Transferring: independent Ambulation: independent Toileting: independent Bathing: independent Dressing: independent Eating: independent Communication: understands/communicates without difficulty Swallowin-->swallows foods/liquids without difficulty Equipment Currently Used at Home: 4 wheeled walker (4WW) Prior Functional Level Comment: Patient reports using a four-wheel walker for ambulation du e to pain. Potential available assistance at discharge: none Living Environment/Accessibility: Lives With: spouse Living Arrangements: house Home Accessibility: no concerns Financial Concerns: none Transportation Available: car, family or friend will provide Patient/Family s Goals: Return home and to prior activities, walk without pain Rehabilitation potential: good, to achieve stated therapy goals Physical Therapy Discharge Recommendations are: Recommended discharge disposition: home with assist Post discharge physical therapy recommendation: pt is motivated participant, family involv ed/supportive Equipment Recommendations: 2 wheeled walker (FWW) Planned Interventions: balance training, bed mobility training, gait training, patient/fam carmella education, stair training, transfer training Recommended Frequency: (1 2 times day) Patient Status/Goals: Reflects last filed data and may be from multiple contributors. Gait Minimal physical assistance for imbalance, pain, decreased flexibility. Level of Grand: minimal assist (75% patient effort), verbal cues required Assistive Device: 2 wheeled walker (FWW) Distance (feet): 2 steps forward and backwards Gait Pattern Analysis: 3-point gait Gait Deviations: step length decreased, stride length decreased Safety Issues: weight-shifting ability decreased Transfers Minimal physical assistance for mild imbalance, pain, decreased flexibility. Patient with good initial balance on stand. Sit-Stand, Level of Grand: minimal assist (75% patient effort), verbal cues required Stand-Sit, Level of Grand: minimal assist (75% patient effort), verbal cues required [id number], Assistive Device: 2 wheeled walker (FWW) Toilet, Level of Grand: minimal assist (75% patient effort) Toilet, Assistive Device: 4 wheeled walker (4WW) Maintain Weight Bearing Status: assist to maintain weight bearing status Safety Issues: sequencing ability decreased, balance decreased during turns, weight-shiftin g ability decreased Impairments: decreased flexibility, impaired balance, pain Bed Mobility Instruction on technique to maintain posterior hip precautions, contact-guard assist for sa fety due to hip precautions, decreased activity tolerance and pain. Assistive Device: bed rails, HOB elevated Scoot/Bridge, Level of Grand: contact guard assist, verbal cues required Supine to Sit, Level of Grand: contact guard assist, verbal cues required Sit to Supine, Level of Grand: not tested Safety Issues: decreased use of legs for bridging/pushing Impairments: decreased flexibility, impaired balance, ROM decreased, pain Balance Sitting Balance: Static: fair balance Sitting Balance: Dynamic: fair balance Standing Balance: Static: poor balance Standing Balance: Dynamic: poor balance Functional Endurance Fair, for activities performed. ROM L LE ROM: Hip flexion/extension not tested due to posterior hip precautions, knee extension within functional limits, plantarflexion/dorsiflexion within functional limits R LE ROM: Within functional limits Strength L LE Strength: Hip flexion not tested due to posterior hip precautions, knee extension 4/5, flexion 4/5, dorsiflexion 3+/5 R LE Strength: Grossly 4/5 PT Goal Review Date Most Recent Value STG Review Date 06/10/17 at 06/07/2017 1600 [id number] Goal Most Recent Value STG Status new at 06/07/2017 1600 STG Grand Level modified independent at 06/07/2017 1600 STG Assistive Device none at 06/07/2017 1600 Npx-Ippbd-Hwf Goal Most Recent Value STG Status new at 06/07/2017 1600 STG Grand Level modified independent at 06/07/2017 1600 STG Assistive Device 2 wheeled walker (FWW) at 06/07/2017 1600 Gait Goal Most Recent Value STG Status new at 06/07/2017 1600 STG Grand Level modified independent at 06/07/2017 1600 STG Assistive Device 2 wheeled walker (FWW) at 06/07/2017 1600 STG Distance (feet) 100 feet at 06/07/2017 1600 Stair Goal Most Recent Value STG Status new at 06/07/2017 1600 STG Grand Level modified independent at 06/07/2017 1600 STG Assistive Device 1 rail at 06/07/2017 1600 STG Number of Stairs 4 at 06/07/2017 1600 Additional Goal #1 PT Most Recent Value STG Status new at 06/07/2017 1600 STG Patient and spouse will be independent with posterior total hip arthroplasty precautio ns. at 06/07/2017 1600 Electronically signed by: Ramsey Rucker PT, 06/07/2017 18:34 p Note - Tay Chand MD - 06/07/2017 10:03 AM PDTTotal Hip Arthroplasty Operative Report Indications: Patrice Interiano has severe osteoarthritis of the left hip with symptoms limiting function. After failing reasonable conservative measures, Patrice Interiano elects to proceed w ith surgical treatment. Risk and benefits were discussed. Consent was obtained in the clin ic. Pre-operative Diagnosis: Left hip osteoarthritis Post-operative Diagnosis: Left hip osteoarthritis Procedure: Left total hip arthroplasty Approach: Posterolateral Anesthesia: @ORANES@ Anesthesiologist: Temo Ramires MD Surgeon: Tay Chand MD Attending Attestation: I was present and scrubbed for the entire procedure. Magazine Writer: Olinda Nicole PA-C. Note the unit assistant was necessary in performing t his procedure. Findings: severe bone on bone arthrosis Estimated Blood Loss: 300 mL Drains: none Specimens: none Implants: Biomet TaperLoc size 12 stem with a +3/36 ceramic head. Biomet G7 acetabular she ll size 56 with a non-lipped poly liner ROM: leg lengthening less than 0.5 cm based on down leg technique and intra-operative radio graph. Stable to flexion internal rotation to 60 degrees. Stable in sleeping position. No impingement with extension and external rotation. Complications: none Procedure Details Patrice Interiano was seen in the preoperative area. Surgical site was marked and identified. A ppropriate antibiotic prophylaxis was given. The patient was taken to the operating room whe re successful @ORANES@ was performed. Patient was then positioned into lateral decubitus po sition. The left hip area was then prepped and draped in usual sterile fashion. Tranexamic acid 1 gram was given intravenously. Posterolateral approach to the hip was made to gain acc ess to the hip joint. The pyriformis, short external rotators and posterior capsule were ref lected off the posterior greater trochanter prior to dislocation. Leg length was estimated u sing down leg technique. Femoral neck osteotomy was performed based off the preoperative tem plated level. Acetabular retractor was then positioned. This was followed by circumferential labral resection. The acetabulum was gradually enlarged with sequential reaming until bleed ing bone was encountered. A trial device was then positioned followed by placement of the fi nal shell and trial liner. Femoral canal was identified and gradually enlarged with sequential broaching until proxima l fit was achieved. Trialing at this time demonstrated good soft tissue tension without ove r lengthening of affected leg. Stability was achieved with hyperflexion and internal rotati on. There were no impingement with extension and external rotation. Patient was stable in sleeping position. A cross-table AP pelvis film confirmed good component position and symme tric limb lengths. Trial components were removed. Acetabular fixation with enhanced with one screw with superb purchase. Articular liner was locked into the acetabular component and was confirmed to be seated flush. The femoral component was inserted with excellent stability. Trialing again s howed +3 head was appropriate, was selected and placed on the clean and dry trunnion. Hip wa s gently reduced. Hip was thoroughly irrigated with saline. The second gram of tranexamic ac id was given intravenously. Posterior capsule and the pyriformis tendon were repaired to the posterior aspect of the greater trochanter through drill holes using a #5 Ethibond suture. The fascia was then closed with interrupted suture followed by layered closure of subcutaneo us tissue with 2-0 Vicryl and staple closure of the skin. The patient tolerated the procedur e without any difficulty. Subsequently transferred to postanesthesia care unit in stable con dition. POSTOPERATIVE PLAN: The patient will be allowed to weight bear as tolerated, ambulate with assistive device. Deep venous thrombosis prophylaxis using combination of mechanical and pha rmacologic means. Antibiotic prophylaxis for 24 hours. documented in this enc ounter Plan of Treatment + +------+--------+ + + | Name | Type | Priori | Associated Diagnoses | Order Schedule | | | | ty | | | + +------+--------+ + + | DME: Walker | DME | Routin | Status post total | DME 1 Time for 1 | | | | e | replacement of left | Occurrences starting | | | | | hip | 06/07/2017 until | | | | | | 06/07/2017 | + +------+--------+ + + documented as of this encounter Procedures + +--------+ + + + | Procedure Name | Priori | Date/Time | Associated Diagnosis | Comments | | | ty | | | | + +--------+ + + + | HEMOGLOBIN AND | Routin | 06/09/2017 | | Results for this | | HEMATOCRIT | e | 6:15 AM | | procedure are in the | | | | PDT | | results section. | + +--------+ + + + | HEMOGLOBIN AND | Routin | 06/08/2017 | | Results for this | | HEMATOCRIT | e | 6:19 AM | | procedure are in the | | | | PDT | | results section. | + +--------+ + + + | BASIC METABOLIC | Routin | 06/08/2017 | | Results for this | | PANEL | e | 6:19 AM | | procedure are in the | | | | PDT | | results section. | + +--------+ + + + | RESPIRATORY THERAPY | Routin | 06/08/2017 | | | | COMMUNICATION | e | 4:26 AM | | | | | | PDT | | | + +--------+ + + + | XR PELVIS 1 OR 2 VW | STAT | 06/07/2017 | | Results for this | | | | 11:07 AM | | procedure are in the | | | | PDT | | results section. | + +--------+ + + + | XR PELVIS 1 OR 2 VW | Routin | 06/07/2017 | | Results for this | | | e | 9:08 AM | | procedure are in the | | | | PDT | | results section. | + +--------+ + + + | ARTHROPLASTY HIP | | 06/07/2017 | Primary | | | | | 7:50 AM | osteoarthritis of | | | | | PDT | left hip | | + +--------+ + + + +---+--------+ | | | | | Specia | | | bartolo | | | Tomasa | | | Mahendra | | | Woody | | | - | | | Garfield | +---+--------+ + +---+ +---+ + | LABS - EXTERNAL SCAN | | 05/11/2017 | | Results for this | | | | 12:00 AM | | procedure are in the | | | | PDT | | results section. | + +---+ +---+ + documented in this encounter Results Hemoglobin and Hematocrit (06/09/2017 6:15 AM PDT) + + + + + + | Component | Value | Ref Range | Performed | Pathologist | | | | | At | Signature | + + + + + + | Hemoglobin | 11.5 (L) | 13.5 - 18.0 | [facility] | | | | | g/dL | [facility] | | | | | [facility] | | | | | [facility] - | | | | | | LABORATORY | | + + + + + + | Hematocrit | 35.6 (L) | 40.0 - 51.0 % | [...] + | [facility] | [address] | [place] | [phone] | | [facility] | | [id number] | | | - LABORATORY | | | | + + + + + Basic Metabolic Panel (06/08/2017 6:19 AM PDT) + + + + + + | Component | Value | Ref Range | Performed | Pathologist | | | | | At | Signature | + + + + + + | Na | 133 (L) | 136 - 149 | [facility] | | | | | mmol/L | [facility] | | [facility] | | | | | | [facility] - | | | | | | LABORATORY | | + + + + + + | K | 3.8 | 3.5 - 5.1 | [facility] | | | | | mmol/L | [facility] | | | | | | [facility] | | | | | | [facility] - | | | | | | LABORATORY | | + + + + + + | Cl | 98 | 98 - 109 mmol/L | [facility] | | | | | | [facility] | | | | | | [facility] | | | | | | [facility] - | | | | | | LABORATORY | | + + + + + + | CO2 | 30 | 24 - 31 mmol/L | [facility] | | | | | | [facility] | | | | | | [facility] | | | | | | [facility] - | | | | | | LABORATORY | | + + + + + + | Anion Gap | 5 | 3 - 16 mmol/L | [facility] | | | | | | [facility] | | | | | | [facility] | | | | | | [facility] - | | | | | | LABORATORY | | + + + + + + | Glucose | 142 (H) | 70 - 109 mg/dL | [facility] | | | | | | [facility] | | | | | [facility] | | | | | | [facility] - | | | | | | LABORATORY | | + + + + + + | BUN | 10 | 7 - 18 mg/dL | [facility] | | | | | | [facility] | | | | | | [facility] | | | | | | [facility] - | | | | | | LABORATORY | | + + + + + + | Creatinine | 0.95 | 0.60 - 1.30 | [facility] | | | | | mg/dL | [facility] | | | | | | [facility] | | | | | | CENTER - | | | | | | LABORATORY | | + + + + + + | eGFR, | >60Comment: GLOMERULAR | >=60 | [facility] | | | non- | FILTRATION | mL/min/1.73m2 | [facility] | | | [place] | RATE,ESTIMATED | | MEDICAL | | | | mL/min/1.63e5Hhmo than | | CENTER - | | | | 60 Chronic kidney | | LABORATORY | | | | disease,if found over a | | | | | | 3-month period.Less than | | | | | | 15 Kidney failureFor | | | | | | | | | | | | Americans,multiply the | | | | | | calculated GFR by 1.21. | | | | | | | | | | + + + + + + | Calcium | 8.5 | 8.3 - 10.5 | [facility] | | | | | mg/dL | [facility] | | | | | | MEDICAL | | | | | | CENTER - | | | | | | LABORATORY | | + + + + + + | BUN/Creatin | 10.5 | | [facility] | | | ine Ratio | | | [facility] | | [...] ST. | [address] | [place] | [phone] | | [facility] | | [address] | | | - LABORATORY | | | | + + + + + Hemoglobin and Hematocrit (06/08/2017 6:19 AM PDT) + + + + + + | Component | Value | Ref Range | Performed | Pathologist | | | | | At | Signature | + + + + + + | Hemoglobin | 11.9 (L) | 13.5 - 18.0 | [facility] | | | | | g/dL | [facility] | | | | | | [facility] | | | | | | CENTER - | | | | | | LABORATORY | | + + + + + + | Hematocrit | 34.9 (L) | 40.0 - 51.0 % | [...] ST. | [address] | [place] | [phone] | | [facility] | | [address] | | | - LABORATORY | | | | + + + + + XR Pelvis 1 or 2 Vw (06/07/2017 11:07 AM PDT) + + | Specimen | + + | | + + + + + | Narrative | Performed At | + + + | CLINICAL INFORMATION: post op. COMPARISON: 06/07/2017. | [facility] | | FINDINGS: AP view of the pelvis. Completed total hip | | | arthroplasty changes on the left without evidence of hardware | | | complication. Lateral cutaneous judson and | | | subcutaneous/intra-articular air noted. Moderate degeneration of | | | the right hip. IMPRESSION - Left hip total arthroplasty without | | | evidence of immediate complication. Dictated and Signed by: | | | García Britton MD Electronically signed: 06/07/2017 12:23 PM | | + + + + + | Procedure Note | + + | Francisco, Rad Results In - 06/07/2017 12:26 PM PDT CLINICAL INFORMATION: post op. | | | | COMPARISON: 06/07/2017. | | | | FINDINGS: | | AP view of the pelvis. | | | | Completed total hip arthroplasty changes on the left without evidence of | | hardware complication. Lateral cutaneous judson and | | subcutaneous/intra-articular air noted. | | | | Moderate degeneration of the right hip. | | | | IMPRESSION - Left hip total arthroplasty without evidence of immediate | | complication. | | | | Dictated and Signed by: García Britton MD | | Electronically signed: 06/07/2017 12:23 PM | + + + +---------+ + + | Performing | Address | City/State/Zipcode | Phone Number | | Organization | | | | + +---------+ + + | [facility] | | | | + +---------+ + + XR Pelvis 1 or 2 Vw (06/07/2017 9:08 AM PDT) + + | Specimen | + + | | + + + + | Addenda | + + | Addendum by García Britton MD on 06/07/2017 12:25 PM ADDENDUM: The | | "right" marker is incorrect on the image. Left hip arthroplasty was performed as | | confirmed on the final AP view of the pelvis. Dictated and Signed by: García | | MD Tobi Electronically signed: 06/07/2017 12:22 PM | + + + + + | Narrative | Performed At | + + + | CLINICAL INFORMATION: intra op. COMPARISON: 01/31/2017. | [facility] | | FINDINGS: AP view of the pelvis. Intraprocedure radiograph | | | during right hip total arthroplasty. Expected normal alignment of | | | the right hip prosthetic components. Left hip osteoarthritis. | | | IMPRESSION - See procedure report for details. Dictated and | | | Signed by: García Britton MD Electronically signed: 06/07/2017 | | | 9:43 AM | | + + + + + | Procedure Note | + + | Francois Singh Results In - 06/07/2017 9:46 AM PDT CLINICAL INFORMATION: intra op. | | | | COMPARISON: 01/31/2017. | | | | FINDINGS: | | AP view of the pelvis. | | | | Intraprocedure radiograph during right hip total arthroplasty. Expected normal | | alignment of the right hip prosthetic components. | | | | Left hip osteoarthritis. | | | | | | IMPRESSION - See procedure report for details. | | | | Dictated and Signed by: García Britton MD | | Electronically signed: 06/07/2017 9:43 AM | + + + +---------+ + + | Performing | Address | City/State/Zipcode | Phone Number | | Organization | | | | + +---------+ + + | [facility] | | | | + +---------+ + + LABS - EXTERNAL SCAN (05/11/2017 12:00 AM PDT) + + + | Narrative | Performed At | + + + | Ordered by an | | | unspecified provider. | | + + + documented in this encounter Visit Diagnoses + + | Diagnosis | + + | Primary osteoarthritis of left hip Primary localized osteoarthrosis, pelvic region | | and thigh | + + documented in this encounter Administered Medications + +--------+ +--------+------+------+ | Medication Order | MAR | Action | Dose | Rate | Site | | | Action | Date | | | | + +--------+ +--------+------+------+ | acetaminophen (TYLENOL) tablet | Given | 06/10/19 | 650 mg | | | | 650 mg 650 mg, Oral, 4 TIMES | | 18 2:18 | | | | | DAILY, First dose on Sun06/07/17 | | PM PDT | | | | | at 1300 | | | | | | + +--------+ +--------+------+------+ +-------+ +--------+---+---+ | Given | 06/10/19 | 650 mg | | | | | 18 8:55 | | | | | | AM PDT | | | | +-------+ +--------+---+---+ | Given | 06/09/19 | 650 mg | | | | | 18 8:37 | | | | | | PM PDT | | | | +-------+ +--------+---+---+ +---+---+ | | | +---+---+ + +-------+ +------+---+---+ | apixaban (ELIQUIS) tablet 5 mg | Given | 06/10/19 | 5 mg | | | | 5 mg, Oral, 2 TIMES DAILY, First | | 18 8:55 | | | | | dose on Sun06/08/17 at 0700, | | AM PDT | | | | | Post-op/Phase II | | | | | | + +-------+ +------+---+---+ +-------+ +------+---+---+ | Given | 06/09/19 | 5 mg | | | | | 18 8:38 | | | | | | PM PDT | | | | +-------+ +------+---+---+ | Given | 06/09/19 | 5 mg | | | | | 18 6:13 | | | | | | AM PDT | | | | +-------+ +------+---+---+ +---+---+ | | | +---+---+ + +-------+ +--------+---+---+ | celecoxib (CELEBREX) capsule | Given | 06/10/19 | 200 mg | | | | 200 mg 200 mg, Oral, 2 TIMES | | 18 8:56 | | | | | DAILY, First dose on Sun06/07/17 | | AM PDT | | | | | at 2100, Doses > 200 mg should be | | | | | | | given with meals., Post-op/Phase | | | | | | | II | | | | | | + +-------+ +--------+---+---+ +-------+ +--------+---+---+ | Given | 06/09/19 | 200 mg | | | | | 18 8:38 | | | | | | PM PDT | | | | +-------+ +--------+---+---+ | Given | 06/09/19 | 200 mg | | | | | 18 9:24 | | | | | | AM PDT | | | | +-------+ +--------+---+---+ + +---+ | | | + +---+ | diphenhydrAMINE (BENADRYL) 12.5 | | | mg/5 mL liquid 25 mg 25 mg, | | | Oral, EVERY 4 HOURS PRN, Itching, | | | Starting [facility] 06/07/17 at 1233, | | | Oral route is preferred., | | | Post-op/Phase II | | + +---+ | | | + +---+ | diphenhydrAMINE (BENADRYL) | | | injection 12.5 mg 12.5 mg, | | | Intravenous, EVERY 4 HOURS PRN, | | | Itching, Starting [facility] 06/07/17 at | | | 1233, Oral route is preferred., | | | Post-op/Phase II | | + +---+ | | | + +---+ | diphenhydrAMINE (BENADRYL) | | | tablet 25 mg 25 mg, Oral, EVERY | | | 4 HOURS PRN, Itching, Starting | | | [facility] 06/07/17 at 1233, Oral route | | | is preferred., Post-op/Phase II | | + +---+ | | | + +---+ + +-------+ +-------+---+---+ | furosemide (LASIX) tablet 40 mg | Given | 06/09/19 | 40 mg | | | | 40 mg, Oral, DAILY, First dose | | 18 9:26 | | | | | on [facility] 06/07/17 at 1300, | | AM PDT | | | | | Post-op/Phase II | | | | | | + +-------+ +-------+---+---+ +-------+ +-------+---+---+ | Given | 06/08/19 | 40 mg | | | | | 18 2:31 | | | | | | PM PDT | | | | +-------+ +-------+---+---+ +---+---+ | | | +---+---+ + +-------+ +--------+---+---+ | gabapentin (NEURONTIN) capsule | Given | 06/10/19 | 300 mg | | | | 300 mg 300 mg, Oral, DAILY, | | 18 8:56 | | | | | First dose on [facility] 06/07/17 at | | AM PDT | | | | | 1345, Post-op/Phase II | | | | | | + +-------+ +--------+---+---+ +-------+ +--------+---+---+ | Given | 06/08/19 | 300 mg | | | | | 18 2:32 | | | | | | PM PDT | | | | +-------+ +--------+---+---+ +---+---+ | | | +---+---+ + +---------+ +--------+-------+---+ | lactated ringers (LR) infusion | New Bag | 06/08/19 | 1,000 | 100 | | | at 10-100 mL/hr, Intravenous, | | 18 11:15 | mLs | mL/hr | | | CONTINUOUS, Starting [facility] 06/07/17 | | AM PDT | | | | | at 0630, Give 500 cc bolus when | | | | | | | starting IV, Pre-op | | | | | | + +---------+ +--------+-------+---+ +---------+ +---+---+---+ | New Bag | 06/08/19 | | | | | | 18 9:01 | | | | | | AM PDT | | | | +---------+ +---+---+---+ | New Bag | 06/08/19 | | | | | | 18 6:56 | | | | | | AM PDT | | | | +---------+ +---+---+---+ +---+---+ | | | +---+---+ + +-------+ +-------+---+---+ | lisinopril (PRINIVIL,ZESTRIL) | Given | 06/09/19 | 40 mg | | | | tablet 40 mg 40 mg, Oral, DAILY, | | 18 9:24 | | | | | First dose on [facility] 06/07/17 at | | AM PDT | | | | | 1300, Post-op/Phase II | | | | | | + +-------+ +-------+---+---+ +-------+ +-------+---+---+ | Given | 06/08/19 | 40 mg | | | | | 18 2:33 | | | | | | PM PDT | | | | +-------+ +-------+---+---+ +---+---+ | | | +---+---+ + +-------+ +-------+---+---+ | loratadine (CLARITIN) tablet 10 | Given | 06/10/19 | 10 mg | | | | mg 10 mg, Oral, DAILY, First | | 18 8:56 | | | | | dose on Sun06/08/17 at 0900, | | AM PDT | | | | | Post-op/Phase II | | | | | | + +-------+ +-------+---+---+ +-------+ +-------+---+---+ | Given | 06/09/19 | 10 mg | | | | | 18 9:26 | | | | | | AM PDT | | | | +-------+ +-------+---+---+ +---+---+ | | | +---+---+ + +-------+ +-------+---+---+ | nadolol (CORGARD) tablet 40 mg | Given | 06/09/19 | 40 mg | | | | 40 mg, Oral, DAILY, First dose | | 18 8:38 | | | | | on [facility] 06/07/17 at 1300, | | PM PDT | | | | | Post-op/Phase II | | | | | | + +-------+ +-------+---+---+ +-------+ +-------+---+---+ | Given | 06/08/19 | 40 mg | | | | | 18 9:04 | | | | | | PM PDT | | | | +-------+ +-------+---+---+ +---+---+ | | | +---+---+ + +-------+ +-------+---+---+ | pantoprazole (PROTONIX) DR | Given | 06/10/19 | 40 mg | | | | tablet 40 mg 40 mg, Oral, DAILY | | 18 6:08 | | | | | BEFORE BREAKFAST, First dose on | | AM PDT | | | | | [facility] 06/08/17 at 0730, | | | | | | | Post-op/Phase II | | | | | | + +-------+ +-------+---+---+ +-------+ +-------+---+---+ | Given | 06/09/19 | 40 mg | | | | | 18 6:13 | | | | | | AM PDT | | | | +-------+ +-------+---+---+ +---+---+ | | | +---+---+ + +-------+ +--------+---+---+ | potassium chloride (KLOR-CON) | Given | 06/09/19 | 20 mEq | | | | packet 20 mEq 20 mEq, Oral, | | 18 9:33 | | | | | DAILY, First dose on [facility] 06/07/17 | | AM PDT | | | | | at 1300, Post-op/Phase II | | | | | | + +-------+ +--------+---+---+ +-------+ +--------+---+---+ | Given | 06/08/19 | 20 mEq | | | | | 18 2:33 | | | | | | PM PDT | | | | +-------+ +--------+---+---+ +---+---+ | | | +---+---+ + +-------+ +--------+---+---+ | pramipexole (MIRAPEX) tablet | Given | 06/09/19 | 0.5 mg | | | | 0.5 mg 0.5 mg, Oral, DAILY, | | 18 9:25 | | | | | First dose on Sun06/07/17 at | | AM PDT | | | | | 1300, Post-op/Phase II | | | | | | + +-------+ +--------+---+---+ +-------+ +--------+---+---+ | Given | 06/08/19 | 0.5 mg | | | | | 18 2:32 | | | | | | PM PDT | | | | +-------+ +--------+---+---+ +---+---+ | | | +---+---+ + +-------+ +-------+---+---+ | sertraline (ZOLOFT) tablet 50 | Given | 06/09/19 | 50 mg | | | | mg 50 mg, Oral, DAILY, First | | 18 9:25 | | | | | dose on Sun06/07/17 at 1300, | | AM PDT | | | | | Post-op/Phase II | | | | | | + +-------+ +-------+---+---+ +-------+ +-------+---+---+ | Given | 06/08/19 | 50 mg | | | | | 18 6:49 | | | | | | PM PDT | | | | +-------+ +-------+---+---+ +---+---+ | | | +---+---+ + +-------+ +------+---+---+ | terazosin (HYTRIN) capsule 5 mg | Given | 06/09/19 | 5 mg | | | | 5 mg, Oral, DAILY, First dose | | 18 5:35 | | | | | on Sun06/07/17 at 1800, | | PM PDT | | | | | Post-op/Phase II | | | | | | + +-------+ +------+---+---+ +-------+ +------+---+---+ | Given | 06/08/19 | 5 mg | | | | | 18 6:48 | | | | | | PM PDT | | | | +-------+ +------+---+---+ +---+---+ | | | +---+---+ + +-------+ +------+---+---+ | tiZANidine (ZANAFLEX) tablet 2 | Given | 06/10/19 | 2 mg | | | | mg 2 mg, Oral, EVERY 6 HOURS | | 18 5:32 | | | | | PRN, Muscle spasms, Starting Fri | | AM PDT | | | | | 06/08/17 at 1741 | | | | | | + +-------+ +------+---+---+ +-------+ +------+---+---+ | Given | 06/09/19 | 2 mg | | | | | 18 8:37 | | | | | | PM PDT | | | | +-------+ +------+---+---+ +---+---+ | | | +---+---+ documented in this encounter
--- OUTSIDE RECORDS SUMMARY | ~2019-11-12 | XMS | Encounter Summary ---
Demographics + + + | Address | [address] | | | [place] [address] | + + + | Home Phone [...] Team Providers + +------+ + | Care Emergency Department Manager Name | Role | Phone | + +------+ + PCP | Unavailable | + +------+ + Encounter Details +--------+ + + + + | Date | Type | Department | Care Team | Description | +--------+ + + + + | 09/25/ | Hospital | [facility] | Mahendra Luna MD | | | 2011 | Encounter | MED CTR XRAY [address] | | | | | [place] | [place] [address] | | | | | [place] [address] | [phone] | | | | | [phone] | | | +--------+ + + + [...] + +--------+ + + + | XR CERVICAL SPINE 1 | | 09/26/2011 | | Results for this | | VIEW | | 1:38 PM | | procedure are in the | | | | PDT | | results section. | + +--------+ + + + documented in this encounter Results XR Cervical Spine 1 Vw (09/26/2011 1:38 PM PDT) + + | Specimen | + + | | + + + + + | Narrative | Performed At | + + + | [facility] Diagnostic Imaging Department | [facility] | | [address] [facility] | [facility] | | X-RAY CERVICAL SPINE, 09/26/2011 | DIAG IMG | | CLINICAL HISTORY: STATUS POST FUSION. COMPARISON: | | | 08/17/2011 FINDINGS: Frontal and lateral views of the cervical | | | spine. Fusion has been performed from C4 throug h C7. The | | | hardware is intact. Interbody grafts at the intervening disk spaces | | | are in place and not significantly changed aside from slight | | | suggestion of early incorporation. Precervical soft tissue t | | | hickening has decreased and remains most prominent at the levels of C6 | | | and C7. IMPRESSION: 1. CERVICAL FUSION FROM C4 THROUGH C7 | | | WITHOUT EVIDENCE FOR INTERVAL COMPLICATION. Dictated Date/Time: | | | 09/26/2011 16:44 Transcribed Date/Time: 09/26/2011 17:04 | | | Director Blood Bank: <Electronically Signed by Shawn Champagne, | | | MD> 09/27/11 1048 | | + + + + + | Procedure Note | + + | Francisco, Rad Conversion - 03/28/2013 5:49 PM [facility] | | Diagnostic Imaging Department [address] [place] [address] | | X-RAY CERVICAL SPINE, 09/26/2011 CLINICAL HISTORY: | | STATUS POST FUSION. COMPARISON: 08/17/2011 FINDINGS: Frontal and lateral views of | | the cervical spine. Fusion has been performed from C4 through C7. The hardware is | | intact. Interbody grafts at the intervening disk spaces are in place and not | | significantly changed aside from slight suggestion of early incorporation. Precervical | | soft tissue thickening has decreased and remains most prominent at the levels of C6 and | | C7. IMPRESSION: 1. CERVICAL FUSION FROM C4 THROUGH C7 WITHOUT EVIDENCE FOR INTERVAL | | COMPLICATION. Dictated Date/Time: 09/26/2011 16:44Transcribed Date/Time: 09/26/2011 | | 17:04Transcriptionist: <Electronically Signed by Shawn Champagne MD> 09/27/11 | | 1048 | |FINDINGS: Frontal and lateral views of the cervical spine. Fusion has been performed from C4 throug | |h C7. The hardware is intact. Interbody grafts at the intervening disk spaces are in plac e and not | |significantly changed aside from slight suggestion of early incorporation. Precervical sof t tissue t | |hickening has decreased and remains most prominent at the levels of C6 and C7. | | | |IMPRESSION: | |1. CERVICAL FUSION FROM C4 THROUGH C7 WITHOUT EVIDENCE FOR INTERVAL COMPLICATION. | | | |Dictated Date/Time: 09/26/2011 16:44 | |Transcribed Date/Time: 09/26/2011 17:04 | |Director Blood Bank: | |<Electronically Signed by Shawn Champagne MD> 09/27/11 1048 | + + + +---------+ + + | Performing | Address | City/[facility] | Phone Number | | Organization | | | | + +---------+ + + | [facility] | | | | | [facility] | | | | + +---------+ + + documented in this encounter Visit Diagnoses Not on filedocumented in this encounter"
--- OUTSIDE RECORDS SUMMARY | ~2019-11-12 | XMS | Encounter Summary ---
Demographics + + + | Address | [address] | | | [place] [address] | + + + | Home Phone | | + + + | Preferred Language | Unknown | + + + | Marital Status | | + + + | Denominational Affiliation | Unknown | + + + [...] Team Providers + +------+ + | Care Sports Official Name | Role | Phone | + +------+ + | Santi Calloway MD | PCP | | + +------+ [...] | | | | | | | [facility] | | | | | | [...] | +--------+ + + + + | 06/07/ | Anesthesia | [facility] | Temo Randolph | | | 2018 | Event | MED CTR OR INTRA OP | MD Stephanie [address] | | | | | [address] | [address] [place], [place] | | | | | [place], [place] | [address] | | | | | [address] | | | | | | [phone] | Santi Carrillo MD | | | | | | [address] | | | | | | [place], [place] | | | | | | [address] | | | | | | | | +--------+ + + + + Anesthesia Record + + + + + | Procedure Name | Responsible | Anesthesia Start | Anesthesia Stop Time | | | Anesthesiologist | Time | | + + + + + | Left Total Hip | Temo Stephanie Randolph, | 06/07/17 0754 | 06/07/17 1003 | | Arthroplasty (Left | MD | | | | Hip) | | | | + + + + + +----+---+ + + | Da | T | Event | Comment | | te | i | | | | | m | | | | | e | | | +----+---+ + + | 04 | 0 | | | | /1 | 6 | | | | 9/ | 5 | | | | 20 | 0 | | | | 18 | | | | +----+---+ + + | | 0 | An Checkout | Pre-use anesthesia machine/equipment checkout. | | | 6 | | | | | 5 | | | | | 0 | | | +----+---+ + + | | 0 | An Start | | | | 7 | Data | | | | 5 | | | | | 0 | | | +----+---+ + + | | 0 | Block Start | | | | 7 | | | | | 5 | | | | | 0 | | | +----+---+ + + | | 0 | AN Block | | | | 7 | End | | | | 5 | | | | | 4 | | | +----+---+ + + | | 0 | An Start | Reassessment prior to anesthesia induction/procedure. | | | 7 | | | | | 5 | | | | | 4 | | | +----+---+ + + | | 0 | Antibiotic | | | | 8 | Given | | | | 0 | | | | | 0 | | | +----+---+ + + | | 0 | Preoxygenat | | | | 8 | ed | | | | 0 | | | | | 2 | | | +----+---+ + + | | 0 | An | | | | 8 | Induction | | | | 0 | | | | | 7 | | | +----+---+ + + | | 0 | An | | | | 8 | Intubation | | | | 0 | | | | | 8 | | | +----+---+ + + | | 0 | Breathing | | | | 8 | Spontaneous | | | | 1 | ly | | | | 2 | | | +----+---+ + + | | 0 | AN Bite | | | | 8 | Block | | | | 1 | | | | | 4 | | | +----+---+ + + | | 0 | [place] | | | | 8 | 43-degrees | | | | 2 | | | | | 0 | | | +----+---+ + + | | 0 | First | | | | 8 | Inc/Proc St | | | | 3 | | | | | 0 | | | +----+---+ + + | | 0 | an real now | Data not flowing to EPIC | | | 8 | | | | | 5 | | | | | 1 | | | +----+---+ + + | | 1 | An Stop | Patient handed off to recovery nurse. | | | 0 | | | | | 3 | | | +----+---+ + + +------+ | Meds | +------+ + + + | Name | Total | + + + | midazolam | 2 mg | + + + | bupivacaine 0.75% (Intrathecal) | 1.2 mL | + + + | morphine (Intrathecal) | 0.2 mg | + + + | fentaNYL injection (2 mL) | 100 mcg | + + + | lidocaine 2% | 100 mg | + + + | ondansetron | 4 mg | + + + | ePHEDrine | 20 mg | + + + | propofol | 150 mg | + + + | ceFAZolin (ANCEF, KEFZOL) 100 | 2 g | | mg/mL IV syringe 2 g | | + + + | tranexamic acid | 2,000 mg | + + + | lactated ringers (LR) infusion | 1,800 mL | + + + + + [...] Removal | +--------+ + + + | Airway | Placement Date: 06/07/17; | 06/07/17 0650 by | 06/07/17 0940 by | | | Placement Time: 0650; Mask | Temo Randolph, | Ivy Perry, NELLIE | | | Ventilation: EZ; Attempts: 1; | MD | | | | Airway Type: laryngeal mask, | | | | | non-disposable; Size: 5; Tube | | | | | Reference Point: secure and | | | | | patent; Trauma: none; Placement | | | | | Check: verified by capnography; | | | | | Placed By: Anesthesiologist; | | | | | Removal Date: 06/07/17; Removal | | | | | Time: 0940 | | | +--------+ + + + | Periph | 06/07/17; 0704; Left; Proximal; | 06/07/17 07 by | 06/09/171713 by | | eral | Wrist; rhik-lqf-sspgtl catheter | David Hanna RN | Grazyna Harris RN | | IV | system; 18 gauge; tolerated well, | | | | | topical anesthetic spray | | | | | applied; no longer indicated; | | | | | short term use; 06/09/17; 1714 | | | +--------+ + + + | Periph | 06/07/17; 0705; Left; Wrist; | 06/07/17 07 by | 06/07/172057 by | | eral | 06/07/17; 2057 | David Hanna RN | Grazyna Harris RN | | IV | | | | +--------+ + + + | Read | 06/07/17; 713; Left; hip; | 06/07/17713 by | 06/09/171713 by | | only - | healing within expectations; | Sandrita Hernandez RN | Grazyna Harris RN | | | 06/09/17; 1713 | | | | Incisi | | | | | on | | | | +--------+ + + + | Urethr | 06/07/17; 814; indicated due to | 06/07/17814 by | 06/08/17 174 by | | al | specific surgical procedure; All | Sandrita Hernandez RN | Grazyna Harris RN | | Cathet | elements; All elements; Bag | | | | er | positioned below the bladder, | | | | | System checked to verify closed | | | | | connections & no dependent loops, | | | | | obstructions/kinks; indwelling | | | | | double lumen catheter; latex, | | | | | 100% silicone; 14; Coiling of | | | | | catheter; 1; 10; 10; other (see | | | | | comments) (under general | | | | | anesthesia); drainage bag to | | | | | dependent drainage; urethral | | | | | catheter removed, tubing intact; | | | | | short term use; 06/08/17; 1743 | | | +--------+ + + + documented in [...] encounter OR Notes Anesthesia Postprocedure Evaluation - Temo Randolph MD - 06/07/2017 10:49 AM PDTForma tting of this note might be different from the original. ANESTHESIA POSTANESTHESIA EVALUATION Patrice Interiano 61 y.o. male 1955 [id number] Procedure(s) Left Total Hip Arthroplasty (Left Hip) Cooperates? Yes Mental Status Performs simple tasks. Respiratory Satisfactory - Airway patent (self maintained). Cardiovascular Satisfactory - Blood pressure and heart rate acceptable Temperature Satisfactory Pain Satisfactory N/V Control Satisfactory Hydration Satisfactory - No signs of dehydration Complications None apparent Vitals: 06/07/17 1030 06/07/17 1035 06/07/17 1040 BP: (!) 146/100 142/72 135/82 Pulse: 62 59 57 Temp: Resp: 16 16 19 SpO2: 97% 96% 96% Electronically signed by Temo Randolph MD 06/07/2017 10:49 [facility] MD at 0 06/07/2017 10:49 AM PDTAnesthesia Procedure Notes - Temo Randolph MD - 06/07/2017 8:42 AM PDTAssociated Order(s): ANE EPIDURAL NOTENeuraxial Procedure Note 06/07/2017 7:55 Procedure: single-shot spinal anesthesia Provider requested procedure: Dr. Tay Chand MD Indication: postoperative analgesia Preprocedure check: patient identified, procedure and rescue equipment checked, preevaluati on including airway assessment complete, consent obtained, timeout performed, monitors appli ed and reassessment prior to procedure Patient position: sitting Preparation: chlorhexidine/isopropyl alcohol, drape, 1% lidocaine infiltration, Introducer used: yes Local anesthetic infiltration volume: 3 mL Procedure level: L3-4 (?) Approach: midline Needle size: 25 g Needle length: 6 in Medication administered through: needle Negative findings: no blood aspirated and no paresthesia Positive findings: CSF aspirated Attempts: 2 Ease of procedure: difficult Performing provider: TEMO RANDOLPH Comments: Risks and benefits of intrathecal narcotics discussed with patient. The patient agrees to proceed answered all questions. The block is being done for post op pain control at the request of the patient and the surgeon. The patient was brought to the operating ro om and monitors were applied. The patient was sedated and placed in the sitting position. The L3-4 area was identified and the site marked. A time out was taken. The area prepped w ith chlorhexidine for 30 seconds. The area was then draped in the usual sterile fashion. U tilizing a 25 ga needle, 3 cc of 1% lidocaine was used to anesthetize the skin and sub-Q are a. Using a 20 ga introducer, a 25 ga Melanie needle was used and after one positioning, th e needle was to the hub so a long 25 pencil point needle was then used and the intrathecal s pace was entered. No heme or paresthesias were noted. See the anesthesia record for medicat ions used and amounts given. The patient tolerated the procedure well, no complication was noted. [id number] Y[employer]ana [id number] 06/20/2019 F Please see anesthesia record or flowsheet for vital sign documentation and see anesthesia r ecord or MAR for all medication documentation. Electronically Signed by: Temo Randolph MD ESig date/time: 018 8:42 nesthesia Preproc edure Evaluation - Temo Randolph MD - 06/06/2017 7:40 PM PDTFormatting of this note m ight be different from the original. ANESTHESIA PREANESTHESIA EVALUATION Patrice Interiano 61 y.o. male 1955 [id number] Procedure(s): Left Total Hip Arthroplasty (Left Hip) Medical history, anesthesia, medications, allergy, NPO status verified histories reviewed. ECG reviewed. Labs reviewed. Review of Systems / Med History Anesthesia History No anesthesia complications. (-) PONV, malignant hyperthermia Cardiovascular Results for orders placed or performed in visit on 05/11/17 -ECG 12 lead Result Value Ref Ra nge INTERPRETATION TEXT Normal sinus rhythm Normal ECG No previous ECGs available Confirmed by SANTI CALLOWAY MD ([id number]) on 05/11/2017 7:36:25 PM . (+) hypertension, CHF (+) PVD: , Exercise tolerance <4 METS Pulmonary (+) sleep apnea: Neurology (+) back pain Psychology (+) anxiety Renal Negative except where noted below. Other (+) arthritis Cancer Negative except where noted below. Physical Exam Airway MP III, TM >3 FB, Mouth opening >2 FB. Neck: full ROM, extends >30 degrees. Jaw protru mallika normal. Dental Grossly normal except where noted below.; (+) Age appropriate dentition. CV Rhythm regular. Rate Normal. (-) murmur, carotid bruit, peripheral edema, JVD and weak pulses. Pulm Clear to auscultation bilaterally. (-) wheezing, rhonchi, decreased breath sounds, rales and stridor. Neuro Grossly normal. Anesthesia Plan ASA 3 (CHF, HTN, ) Type: General. Induction: Intravenous. Potential problems: None anticipated. Monitors: Standard ASA monitors. Consent statement:Anesthetic plan, alternatives, risks and benefits discussed with patient and family. Risks discussed included (but were not limited to): dental injury, pain, sore throat, infec tion, voice injury, muscle aches, nausea, respiratory events, dural tap, post dural puncture headache, high spinal. Consenting person understands and agrees to proceed. PARQ. Risks and benefits of general anesthetic discussed with patient and available family member s. They agree to proceed, answered all questions. Past Medical History: No date: Allergic rhinitis 1999: Anxiety No date: Arthralgia of knee Comment: Patella, Tibia, Fibula 2009: Arthritis No date: Benign prostatic hyperplasia without urinary o* No date: Cervical radiculopathy Comment: C3-C7 No date: Cervical spondylosis with myelopathy 11/2016: CHF (congestive heart failure) ([facility]) 11/2016: Clotting disorder ([facility]) Comment: Pulmonary embolisms No date: Depression with anxiety No date: GERD (gastroesophageal reflux disease) 1999: GI bleed No date: KLAMATH (hard of hearing) Comment: wears hearing aids No date: Hypertension No date: Left sided sciatica No date: Low back pain No date: Lumbar degenerative disc disease No date: Lumbar facet arthropathy ([facility]) Comment: MULTILEVEL No date: Lumbar spondylosis No date: Osteoarthritis, generalized No date: PE (pulmonary thromboembolism) ([facility]) Comment: following lumbar spine surgery 2016 No date: Primary localized osteoarthrosis of left hip No date: Restless leg syndrome No date: Smokeless tobacco use No date: Spondylolisthesis of lumbar region No date: Tremor. Electronically Signed by: Temo Randolph MD ESi date/time: 06/07/2017 6:45 documented in this encounter Plan of Treatment Not on filedocumented as of this encounter Procedures + +--------+ + + + | Procedure Name | Priori | Date/Time | Associated Diagnosis | Comments | | | ty | | | | + +--------+ + + + | ANE EPIDURAL NOTE | Routin | 06/07/2017 | | Results for this | | | e | 8:42 AM | | procedure are in the | | | | PDT | | results section. | + +--------+ + + + documented in this encounter Results Anesthesia Epidural Note (06/07/2017 8:42 AM PDT) + + + | Narrative | Performed At | + + + | Temo Randolph MD 06/07/2017 8:45 Neuraxial Procedure | | | Note 06/07/2017 7:55 Procedure: single-shot spinal anesthesia | | | Provider requested procedure: Dr. Tay Chand MD Indication: | | | postoperative analgesia Preprocedure check: patient identified, | | | procedure and rescue equipment checked, preevaluation including | | | airway assessment complete, consent obtained, timeout performed, | | | monitors applied and reassessment prior to procedure Patient | | | position: sitting Preparation: chlorhexidine/isopropyl alcohol, | | | drape, 1% lidocaine infiltration, Introducer used: yes Local | | | anesthetic infiltration volume: 3 mL Procedure level: L3-4 (?) | | | Approach: midline Needle size: 25 g Needle length: 6 in Medication | | | administered through: needle Negative findings: no blood aspirated | | | and no paresthesia Positive findings: CSF aspirated Attempts: 2 | | | Ease of procedure: difficult Performing provider: TEMO RANDOLPH | | | Comments: Risks and benefits of intrathecal narcotics discussed with | | | patient. The patient agrees to proceed answered all questions. | | | The block is being done for post op pain control at the request of | | | the patient and the surgeon. The patient was brought to the | | | operating room and monitors were applied. The patient was sedated | | | and placed in the sitting position. The L3-4 area was identified | | | and the site marked. A time out was taken. The area prepped with | | | chlorhexidine for 30 seconds. The area was then draped in the | | | usual sterile fashion. Utilizing a 25 ga needle, 3 cc of 1% | | | lidocaine was used to anesthetize the skin and sub-Q area. Using a | | | 20 ga introducer, a 25 ga Melanie needle was used and after one | | | positioning, the needle was to the hub so a long 25 pencil point | | | needle was then used and the intrathecal space was entered. No | | | heme or paresthesias were noted. See the anesthesia record for | | | medications used and amounts given. The patient tolerated the | | | procedure well, no complication was noted. [id number] [employer] | | | [id number] 06/20/2019 F Please see | | | anesthesia record or flowsheet for vital sign documentation and see | | | anesthesia record or MAR for all medication documentation. | | | Electronically Signed by: Temo Randolph MD | | | ESig date/time: 06/07/2017 8:42 | | + + + + + | Procedure Note | + + | Temo Randolph MD - 06/07/2017 8:42 AM PDT Neuraxial Procedure Note06/07/2017 | | 7:55Procedure: single-shot spinal anesthesiaProvider requested procedure: Dr. Cross | | Mannie SNOWIndication: postoperative analgesiaPreprocedure check: patient identified, | | procedure and rescue equipment checked, preevaluation including airway assessment | | complete, consent obtained, timeout performed, monitors applied and reassessment prior | | to procedurePatient position: sittingPreparation: chlorhexidine/isopropyl alcohol, | | drape, 1% lidocaine infiltration, Introducer used: yesLocal anesthetic infiltration | | volume: 3 mLProcedure level: L3-4 (?)Approach: midlineNeedle size: 25 gNeedle length: | | 6 inMedication administered through: needleNegative findings: no blood aspirated and no | | paresthesiaPositive findings: CSF aspiratedAttempts: 2Ease of procedure: | | difficultPerforming provider: TEMO RANDOLPH GComments: Risks and benefits of | | intrathecal narcotics discussed with patient. The patient agrees to proceed answered | | all questions. The block is being done for post op pain control at the request of the | | patient and the surgeon. The patient was brought to the operating room and monitors | | were applied. The patient was sedated and placed in the sitting position. The L3-4 | | area was identified and the site marked. A time out was taken. The area prepped with | | chlorhexidine for 30 seconds. The area was then draped in the usual sterile fashion. | | Utilizing a 25 ga needle, 3 cc of 1% lidocaine was used to anesthetize the skin and | | sub-Q area. Using a 20 ga introducer, a 25 ga Melanie needle was used and after one | | positioning, the needle was to the hub so a long 25 pencil point needle was then used | | and the intrathecal space was entered. No heme or paresthesias were noted. See the | | anesthesia record for medications used and amounts given. The patient tolerated the | | procedure well, no complication was noted.[id number] [id number] | | 06/20/2019 FPlease see anesthesia record or flowsheet for vital sign documentation and | | see anesthesia record or MAR for all medication documentation. Electronically Signed | | by: Temo Randolph MD ESi date/time: 06/07/2017 8:42 | |[id number] | | | |[employer] [id number] 06/20/2019 F | | | |Please see anesthesia record or flowsheet for vital sign documentation and see anesthesia r ecord or MAR for all medication documentation. | | | |Electronically Signed by: Temo Randolph MD ESig date/time: 018 8:42 | + + documented in this encounter Visit Diagnoses Not on filedocumented in this encounter Administered Medications + +--------+ +---------+------+------+ | Medication Order | MAR | Action | Dose | Rate | Site | | | Action | Date | | | | + +--------+ +---------+------+------+ | bupivacaine 0.75%-dextrose | Given | 06/08/19 | 1.2 mLs | | | | 8.25% (MARCAINE SPINAL) injection | | 18 7:52 | | | | | INTRATHECAL, PRN, Starting Ketty | | AM PDT | | | | | 06/07/17 at 0752, Anesthesia | | | | | | | Intra-op | | | | | | + +--------+ +---------+------+------+ +---+---+ | | | +---+---+ + +-------+ +-----+---+---+ | ceFAZolin (ANCEF, KEFZOL) 100 | Given | 06/08/19 | 2 g | | | | mg/mL IV syringe 2 g 2 g, | | 18 8:00 | | | | | Intravenous, Administer over 30 | | AM PDT | | | | | Minutes, Prior to Incision, | | | | | | | Starting [facility] 06/07/17 at 0154, For | | | | | | | 1 dose, Give within one hour | | | | | | | prior to incision., Pre-op, | | | | | | | Indications: Surgical Prophylaxis | | | | | | + +-------+ +-----+---+---+ +---+---+ | | | +---+---+ + +-------+ +-------+---+---+ | ePHEDrine 50 mg/mL injection | Given | 06/08/19 | 10 mg | | | | PRN, Starting [facility] 06/07/17 at | | 18 9:26 | | | | | 0926, Anesthesia Intra-op | | AM PDT | | | | + +-------+ +-------+---+---+ +-------+ +-------+---+---+ | Given | 06/08/19 | 10 mg | | | | | 18 9:23 | | | | | | AM PDT | | | | +-------+ +-------+---+---+ +---+---+ | | | +---+---+ + +-------+ +---------+---+---+ | fentaNYL (PF) injection PRN, | Given | 06/08/19 | 100 mcg | | | | Pain, Starting Ketty 06/07/17 at | | 18 7:50 | | | | | 0750, Anesthesia Intra-op | | AM PDT | | | | + +-------+ +---------+---+---+ +---+---+ | | | +---+---+ + +---------+ +--------+-------+---+ | lactated ringers (LR) infusion | New Bag | 06/08/19 | 1,000 | 100 | | | at 10-100 mL/hr, Intravenous, | | 18 11:15 | mLs | mL/hr | | | CONTINUOUS, Starting [facility] 06/07/17 | | AM PDT | | [...] +---+---+ + +-------+ +-------+---+---+ | lidocaine (PF) 2% injection | Given | 06/08/19 | 60 mg | | | | PRN, Starting Ketty 06/07/17 at | | 18 8:07 | | | | | 0750, Anesthesia Intra-op | | AM PDT | | | | + +-------+ +-------+---+---+ +-------+ +-------+---+---+ | Given | 06/08/19 | 40 mg | | | | | 18 7:50 | | | | | | AM PDT | | | | +-------+ +-------+---+---+ +---+---+ | | | +---+---+ + +-------+ +------+---+---+ | midazolam (VERSED) 1 mg/mL | Given | 06/08/19 | 2 mg | | | | injection Intravenous, PRN, | | 18 7:50 | | | | | Anxiety, Starting Ketty 06/07/17 at | | AM PDT | | | | | 0750, Anesthesia Intra-op | | | | | | + +-------+ +------+---+---+ +---+---+ | | | +---+---+ + +-------+ +--------+---+---+ | morphine (PF) (DURAMORPH) 0.5 | Given | 06/08/19 | 0.2 mg | | | | mg/mL injection INTRATHECAL, | | 18 7:52 | | | | | PRN, Pain, Starting Ketty 06/07/17 | | AM PDT | | | | | at 0752, Anesthesia Intra-op | | | | | | + +-------+ +--------+---+---+ +---+---+ | | | +---+---+ + +-------+ +------+---+---+ | ondansetron (ZOFRAN) injection | Given | 06/08/19 | 4 mg | | | | PRN, Nausea, Vomiting, Starting | | 18 8:07 | | | | | Ketty 06/07/17 at 0807, Anesthesia | | AM PDT | | | | | Intra-op | | | | | | + +-------+ +------+---+---+ +---+---+ | | | +---+---+ + +-------+ +--------+---+---+ | propofol (DIPRIVAN) injection | Given | 06/08/19 | 150 mg | | | | Intravenous, PRN, Starting Ketty | | 18 8:07 | | | | | 06/07/17 at 0807, Anesthesia | | AM PDT | | | | | Intra-op | | | | | | + +-------+ +--------+---+---+ +---+---+ | | | +---+---+ + +-------+ + +---+---+ | tranexamic acid (CYKLOKAPRON) | Given | 06/08/19 | 1,000 mg | | | | injection Intravenous, | | 18 9:20 | | | | | Administer over 15 Minutes, PRN, | | AM PDT | | | | | Starting Ketty 06/07/17 at 0823, | | | | | | | Anesthesia Intra-op | | | | | | + +-------+ + +---+---+ +-------+ + +---+---+ | Given | 06/08/19 | 1,000 mg | | | | | 18 8:23 | | | | | | AM PDT | | | | +-------+ + +---+---+ +---+---+ | | | +---+---+ documented in this encounter"
--- OUTSIDE RECORDS SUMMARY | ~2019-11-12 | XMS | Encounter Summary ---
Demographics + + + | Address | [address] | | | [place] [address] | + + + | Home Phone | | + + + | Preferred Language | Unknown | + + + | Marital Status | | + + + | Sikhism Affiliation | Unknown | + + + | Race | White | + + + | Ethnic Group | Not or | + + + Author + + + | Author | [facility] | | | and Brianana | + + + | Organization | [facility] | | [...] Team Providers + +------+ + | Care Chemistry Intern Name | Role | Phone | + [...] Description | +--------+--------+ + + + | 08/30/ | Refill | [facility] | Santi Dumont MD | Medication Refill | | 2019 | | [address] | [address] [place] [address] | | | | | [address], | [place], [place] | | | | | [place] [address] | [id number] | | | | | [phone] | | | +--------+--------+ + + + [...]
--- OUTSIDE RECORDS SUMMARY | ~2019-11-12 | XMS | Encounter Summary ---
Demographics + + + | Address | [address] | | | [place] [address] | + + + | Home Phone | | + + + | Preferred Language | Unknown | + + + | Marital Status | | + + + | Pentecostal Affiliation | Unknown | + + + | Race | White | + + + | Ethnic Group | Not or | + + + Author + + + | Author | [facility] | | | and Brianana | + + + | Organization | [facility] | | [...] Team Providers + +------+ + | Care Test Manager Name | Role | Phone | + +------+ + | Isaac Miranda MD | PCP | | + +------+ + Reason for Referral Evaluate & Treat (Routine) +--------+ + + + + + | Status | Reason | Specialty | Diagnoses / | Referred By | Referred To | | | | | Procedures | Contact | Contact | +--------+ + + + + + | Closed | Specialty | Physical | Diagnoses | Mahendra Luna | | | | Services | Therapy | Status post | MD [address] | | | | Required | | lumbar | [address] | | | | | | spinal | [place], | | | | | | fusion | [place] [address] | | | | | | | Phone: | | | | | | | [phone] | | | | | | | Fax: | | | | | | | [phone] | | +--------+ + + + + + + + | Scheduling Instructions | + + | Four to eight weeks post-surgery: Physical therapy to evaluate and treat plus one to | | two sessions to teach body mechanics and light core stabilization techniques. Progress | | with aquatic therapy 2-3x/week for 4 weeks and transition to independent program. | | Eight to twelve weeks post-surgery: Begin land physical therapy for lumbar spine | | stabilization exercises and core conditioning, 2-3x/week for 4 weeks. | + + Reason for Visit + + + | Reason | Comments | + + + | Wound Check | | + + + Encounter Details +--------+ + + + + | Date | Type | Department | Care Team | Description | +--------+ + + + + | 03/04/ | Clinical | [facility] | | Status post lumbar | | 2012 | Support | NEUROSURGERY [address] | | spinal fusion | | | | [address] | | (Primary Dx) | | | | [place] | | | | | | [address] | | | | | | [phone] | | | +--------+ + + + [...] + + documented as of this encounter Patient Instructions Patient Instructions Sara Hu - 03/04/2012 9:37 AM PSTMay lift up to 15 pounds a nd start physical therapy 03/14/12. documented in this encounter Progress Notes Sara Hu - 03/04/2012 10:36 AM PST Neurosurgery Postoperative Wound Check/Nurse Visit Wound Information: Location: Back Photo Attached: no Wound Type: Surgical Incision Wound Size: WNL Wound Bed: WNL Wound Edges: Well approximated and intact Drainage (Amount): none Drainage (Color): none Odor: none Treatment/Dressing: Open to air Lab Orders: Clinical/Plan: Pain (0-10): 5/10 Pain Management: Percocet 7.5/325 1 tablet 3-4 times daily Effective Pain Mgmt: yes Refill Needed: no Notes: Walking well, he uses a FWW but is steady enough that he doesn't need it all the eliazar e, only if he feel fatigued. No complaints of numbness or tingling. Complained of pain to bilateral hips and top of thighs. States the pain is getting better. Therapy Plans: To start one month after surgery X-Rays: Prior to next appointment Plan/Follow-Up: Appointment with Dr. Luna in one month documented in this en counter Plan of Treatment + + +--------+ + + | Name | Type | Priori | Associated Diagnoses | Order Schedule | | | | ty | | | + + +--------+ + + | Ambulatory referral | Outpatient | Routin | Status post lumbar | 1 Occurrences | | to Physical Therapy | Referral | e | spinal fusion | starting 03/04/2012 | | | | | | until 05/14/2012 | + + +--------+ + + documented as of this encounter Results XR Lumbar Spine 2 or 3 Vw (04/03/2012 1:28 PM PST) + + | Specimen | + + | | + + + + + | Narrative | Performed At | + + + | [facility] | [facility] | | Department [address] [facility], [place] | [facility] [place] | | [ rep [address]] [ rep [facility] | | st zip] Signed | - IMAGING | | | | | Patient Name: RANJANA INTERIANOJose C Gleason Physician: | | | ZULEYMA. : 1955 Age: 56 Sex: M Unit #: [id number] | | | Exam Date: 04/03/12 [place] [facility] [place] | | | Report #: [id number] Page: | | | %(RAD)RES..mtdd.print.filter("pg") of %(RAD) | | | RES..mtdd.print.filter("tpg") | | | | | | Accession Number: [id number] | | | LUMBAR SPINE, 04/03/2012 CLINICAL HISTORY: POSTOP | | | FUSION. COMPARISON: 02/15/2012. FINDINGS: | | | Posterior pedicle screw and lynn fixation is present across L4-5 and | | | L5-S1. Interbody spacers are present in the disk interspaces. | | | Fixation hardware is in stable position and alignment. The alignment | | | of the lumbar spine is maintained. No adjacent bony abnormalities are | | | present. Soft tissues are normal. IMPRESSION: | | | 1. STABLE L4-5, L5-S1 POSTERIOR PEDICLE SCREW AND INTERBODY FUSION. | | | Dictated Date/Time: 04/03/2012 13:28 Transcribed | | | Date/Time: 04/03/2012 14:09 Mold Dresser: | | | <<Signature on File>> | | | | | | Dickson Armenta MD04/03/12 1419 <Electronically signed by | | | Dickson Armenta MD> Dickson Armenta MD 04/03/12 | | | [address]er: [employer] [email or web address]/13/13 1759 | | | Mahendra Luna MD | | + + + + + + + + | Performing | Address | City/State/Zipcode | Phone Number | | Organization | | | | + + + + + | [facility] | [address] | [place] | [phone] | | [facility] | | [address] | | | - IMAGING | | | | + + + + + documented in this encounter Visit Diagnoses + + | Diagnosis | + + | Status post lumbar spinal fusion - Primary Arthrodesis status | + + documented in this encounter
--- OUTSIDE RECORDS SUMMARY | ~2019-11-12 | XMS | Encounter Summary ---
Demographics + + + | Address | [address] | | | [place] [address] | + + + | Home Phone | | + + + | Preferred Language | Unknown | + + + | Marital Status | | + + + | Caodaism Affiliation | Unknown | + + + | Race | White | + + + | Ethnic Group | Not or | + + + Author + + + | Author | [facility] | | | and [place] | + + + | Organization | [facility] | | | [...] Team Providers + +------+ + | Care Uplands Division Director Name | Role | Phone | + +------+ + | Isaac Miranda MD | PCP | | + +------+ + Reason for Visit +--------+--------+ + | Reason | Onset | Comments | | | Date | | +--------+--------+ + | Other | 03/05/ | PAPERWORK READY FOR PICKUP | | | 2012 | | +--------+--------+ + Encounter Details +--------+ + + + + | Date | Type | Department | Care Team | Description | +--------+ + + + + | 03/05/ | Telephone | [facility] | Mahendra Luna MD | Other (PAPERWORK | | 2012 | | NEUROSURGERY [address] | [address] | READY FOR PICKUP) | | | | [address] | [place] [address] | | | | | [place] | [phone] | | | | | [address] | | | | | | [phone] | | | +--------+ + + + [...] Notes Telephone Encounter - Hillary Dailey - 03/05/2012 1:21 PM PSTPatient requests copy of paperwork sent to their home address. Address is verified at this time. Hillary Dailey elephone Encounter - Asim Hillary Dez - 03/05/2012 12:00 PM PSTPaperwork is ready for pick-up. We can fax this if needed. Hillary Dailey documented in this enc ounter Plan of Treatment Not on filedocumented as of this encounter Visit Diagnoses Not on filedocumented in this encounter"
--- OUTSIDE RECORDS SUMMARY | ~2019-11-12 | XMS | Encounter Summary ---
Demographics + + + | Address | [address] | | | [place] [address] | + + + | Home Phone | | + + + | Preferred Language | Unknown | + + + | Marital Status | | + + + | Christianity Affiliation | Unknown | + + + | Race | White | + + + | Ethnic Group | Not or | + + + Author + + + | Author | [facility] | | | and [place] | + + + | Organization | [facility] | | [...] Team Providers + +------+ + | Care Data Center Manager Name | Role | Phone | + +------+ + | Santi Dumont MD | PCP | | + +------+ + Encounter Details +--------+ + + + + | Date | Type | Department | Care Team | Description | +--------+ + + + + | 04/22/ | Imaging | [facility] | Provider, | | | 2019 | Exam | [facility] | [address] | | | | | IMAGING [address] | [address] | | | | | [address] | [place] [address] | | | | | [place] [address] | | | | | | [phone] | | | +--------+ + + + [...] +--------+ + + + | XR CHEST 2 VIEWS | Routin | 12/03/2016 | | Results for this | | | e | 12:00 AM | | procedure are in the | | | | PDT | | results section. | + +--------+ + + + documented in this encounter Results XR Chest 2 Vws (12/03/2016 12:00 AM PDT) + + | Specimen [...]
--- OUTSIDE RECORDS SUMMARY | ~2019-11-12 | XMS | Encounter Summary ---
Demographics + + + | Address | [address] | | | [place] [address] | + + + | Home Phone | | + + + | Preferred Language | Unknown | + + + | Marital Status | | + + + | Scientologist Affiliation | Unknown | + + + | Race | White | + + + | Ethnic Group | Not or | + + + Author + + + | Author | [facility] | + + + | Organization | [facility] | + + + | Address | Unknown | + + + | Phone | Unavailable | + + + Support + + +---------+ + | Name | Relationship | Address | Phone | + + +---------+ + | Gely Interiano | ECON | Unknown | | + + +---------+ + Care Team Providers + +------+ + | Care Bricklayer Supervisor Name | Role | Phone | + +------+ + | Isaac Miranda MD | PCP | | + +------+ + Encounter Details +--------+ + + + + | Date | Type | Department | Care Team | Description | +--------+ + + + + | 01/30/ | Document-Sc | Health Information | Unknown . | | | 2012 | anned | Services [address] | | | | | | [address] | | | | | | Mailcode: [id number] | | | | | | [facility] | | | | | | [place], [place] | | | | | | [address] | | | | | | [phone] | | | +--------+ + + + [...] + + + | RADIOLOGY | | 01/30/2013 | | Results for this | | | | 12:00 AM | | procedure are in the | | | | PST | | results section. | + +--------+ + + + documented in this encounter Results RADIOLOGY (01/30/2013 12:00 AM PST) + + + | Narrative | Performed At | + + + | | | + + + documented in this encounter Visit Diagnoses Not on filedocumented in this encounter"
--- OUTSIDE RECORDS SUMMARY | ~2019-11-12 | XMS | Encounter Summary ---
Demographics + + + | Address | [address] | | | [place] [address] | + + + | Home Phone | | + + + | Preferred Language | Unknown | + + + | Marital Status | | + + + | Zoroastrianism Affiliation | Unknown | + + + | Race | White | + + + | Ethnic Group | Not or | + + + Author + + + | Author | [facility] | | | and [place] | + + + | Organization | [facility] | | | [...] Team Providers + +------+ + | Care Flamer After Lasting Name | Role | Phone | + +------+ + | Isaac Miranda MD | PCP | | + +------+ + Reason for Visit +--------+ + | Reason | Comments | +--------+ + | Other | Status Post 07/06/11 | +--------+ + Encounter Details +--------+---------+ + + + | Date | Type | Department | Care Team | Description | +--------+---------+ + + + | 01/15/ | Office | [facility] | Mahendra Luna MD | Spondylolisthesis of | | 2011 | Visit | NEUROSURGERY [address] | [address] | lumbar region | | | | [address] | [place] [address] | (Primary Dx); Lumbar | | | | [place] | [phone] | disc herniation | | | | [address] | | with radiculopathy; | | | | [phone] | | Degenerative disc | | | | | | disease, lumbar; | | | | | | Lumbar spondylosis | +--------+---------+ + + + Social History [...] + + + | Blood Pressure | 142/91 | 01/16/2012 11:11 AM | | | | | PST | | + + + + + | Pulse | 61 | 01/16/2012 11:11 AM | | | | | PST | | + + + + + | Temperature | - | - | | + + + + + | Respiratory Rate | 18 | 01/16/2012 11:11 AM | | | | | PST | | + + + + + | Oxygen Saturation | - | - | | + + + + + | Inhaled Oxygen | - | - | | | Concentration | | | | + + + + + | Weight | 111.1 kg (245 lb) | 01/16/2012 11:11 AM | | | | | PST | | + + + + + | Height | 177.8 cm (5' 10") | 01/16/2012 11:11 AM | | | | | PST | | + + + + + | Body Mass Index | 35.15 | 01/16/2012 11:11 AM | | | | | PST | | + + + + + documented in this encounter Patient Instructions Patient Instructions Mahendra Luna MD - 01/16/2012 12:08 PM PSTWe discussed and will attemp t to arrange a lumbar fusion. I favored an posterior fusion with posterior instrumentation in the form of a TLIF or Transforaminal Lumbar Interbody Fusion. Your insurance provider ma y or may not approve the procedure, but I feel it is medically necessary and appropriate. We discussed a number of important issues including risks, benefits, and alternatives. A spine class is usually available sometime before your surgery. These classes are very us eful in preparing for spinal surgery. I would encourage you to attend one. After surgery, it is critical that you do not start or resume smoking and also that you radha id taking any and all anti-inflammatory medications like ibuprofen, Motrin, naproxen, Aleve, Celebrex, diclofenac, Mobic, meloxicam, and many others. The bone is much less likely to h eal if you do not avoid these. It is usually best not to take these or smoke for 6 months. You can research this procedure more by going to: http://[email or web address].com/braeden Click the Treatment Options link on the left column. Then, look for Transforaminal Lumbar Interbody Fusion (TLIF) under Surgical Options. Elect ronically signed by Mahendra Luna MD at 01/16/2012 12:21 PM PST documented in this encounter Progress Notes Mahendra Luna MD - 01/16/2012 12:09 PM PSTFormatting of this note might be different from t he original. Mahendra Luna MD [address] [facility], [address] [place], [place] [id number] FAX: NEUROSURGERY HISTORY AND PHYSICAL EXAMINATION CHIEF COMPLAINT: Chief Complaint Patient presents with Other Status Post 07/06/11 HISTORY OF PRESENT ILLNESS: The patient is a 56 y.o. male with the complaint of back that began and leg pain. I have been following him for this and for his cervical fusion. His fu mallika has been going well in his neck and his strength and spasticity have improved since his neck operation. Unfortunately, his back pain has worsened. He was able to return to work but was laid off due to him not being able to fulfill his duties. His back pain is still ve ry severe and worsens with activity. Percocet still helps his symptoms. He has tried exten sive conservative treatment including therapy, injections, and pain medications and all of t hese measures have failed. He gets pain and numbness down both legs worst on the right side . PAST MEDICAL HISTORY: Past Medical History Diagnosis Date Cervical spondylosis with myelopathy Cervical radiculopathy C3-C7 Lumbar spondylosis Spondylolisthesis of lumbar region Lumbar facet arthropathy MULTILEVEL Lumbar degenerative disc disease Hypertension GERD (gastroesophageal reflux disease) Anxiety Tremor Restless leg syndrome PAST SURGICAL HISTORY: Past Surgical History Procedure Date Hernia repair Cervical fusion CURRENT MEDICATIONS: Current Outpatient Prescriptions on File Prior to Visit Medication Sig Dispense Refill sertraline (ZOLOFT) 50 mg tablet Take 50 mg by mouth Daily. lisinopril (PRINIVIL, ZESTRIL) 20 mg tablet Take 20 mg by mouth Daily. nadolol (CORGARD) 80 MG tablet Take 80 mg by mouth Daily. pramipexole (MIRAPEX) 0.5 MG tablet Take 0.5 mg by mouth Daily. ALLERGIES: No Known Allergies SOCIAL HISTORY: The patient reports that he has never smoked. He uses smokeless tobacco. He reports that h e drinks alcohol. He reports that he does not use illicit drugs. FAMILY HISTORY: Family History Problem Relation Age of Onset Cancer Mother Heart disease Father Diabetes Father Hypertension Father Diabetes Sister Hypertension Sister Diabetes Brother Hypertension Brother REVIEW OF SYSTEMS: Unchanged June 29, 2011 from with the exception of shortness of breath rarely with activity. PHYSICAL EXAMINATION: Blood pressure 142/91, pulse 61, resp. rate 18, height 1.778 m (5' 10"), weight 111.131 kg (245 lb). Body mass index is 35.15 kg/(m^2). GENERAL: Patrice Interiano is in no acute distress with unlabored respirations. The patient do es not appear uncomfortable throughout the exam today. HEENT: HEAD/FACE: EYES: EARS: NASOPHARNYX: OROPHARNYX: Normocephalic and atraumatic. There are no areas of recent trauma. Normal sclerae without icterus. No drainage or tenderness. Clear without drainage. Clear without erythema. NECK (ANTERIOR): Supple and without palpable masses. His neck incision is well healed. CHEST: Clear to ausculation without crackles or wheeze. HEART: Regular rate and rhythm without murmurs. ABDOMEN: Soft, non-tender, non-distended, and without palpable masses. The patient is not obese. SPINE: There is no tenderness in the midline of the cervical or thoracic spine. There is n o major palpable deformity of the spine. The lumbar spine shows there is tenderness in the midline of the L4, L5, S1 levels. EXTREMITIES: No cyanosis, clubbing, or edema. Distal pulses are palpable. NEUROLOGICAL EXAM: MENTAL STATUS: The patient is awake, alert, and oriented. He follows simple and complex commands. He speech is fluent, his comprehends speech well, and his repeats well. He has no apparent deficits with short or residential memory. CRANIAL NERVES: II: Acuity is intact. López are full to confrontation. III, IV, : The pupils are reactive. Extraocular movements are intact. No ptosis is note d. V: Facial sensation is intact and symmetric. VII: Facial movements are symmetric. VIII: Hearing is intact bilaterally. IX, X: The uvula and palate move appropriately. XI: Shrug is equal bilaterally. XII: Tongue protrusion is midline. MOTOR EXAM: (5 IS NORMAL) * Indicates pain limited MUSCLE/ MOVEMENT: RIGHT LEFT Deltoids 5 5 Biceps 5 5 Triceps 5 5 Wrist Flexion 5 5 Wrist Extension 5 5 Median Intrinsics 5 5 Ulnar Intrinsics 5 5 Dragger Strength 5 5 Hip Flexion 5 5 Hip Extension 5 5 Knee Flexion 5 5 Knee Extension 5 5 Dorsiflexion 5 5 Extensor Hallicus Longus 5 5 Plantarflexion 5 5 SENSORY EXAM: Sensory exam shows no diminished sensation to light touch or pain throughout the upper and lower extremities. REFLEXES: (2 OR 2+ IS NORMAL) REFLEX: RIGHT LEFT BICEPS 2 2 BRACHIORADIALIS 2 2 TRICEPS 2 2 PATELLAR 2 2 ACHILLES 2 2 RILEY'S ABSENT ABSENT PLANTAR DOWNGOING DOWNGOING GAIT: Gait is steady. RADIOGRAPHIC REVIEW: The patient's imaging was reviewed in detail with the patient today during the visit. The images show L4-5 spondylolisthesis with disc herniation. He has spinal stenosis at that seg ment and modic changes. At L5-S1, he has severe degenerative disc disease and modic changes . The loss of height causes severe neuroforaminal narrowing at L5. Facet arthropathy is se milli. X-rays show instability at L4-5. ASSESSMENT: NEUROSURGICAL DIAGNOSES: Encounter Diagnoses Name Primary? Spondylolisthesis of lumbar region Yes Lumbar disc herniation with radiculopathy Degenerative disc disease, lumbar Lumbar spondylosis GENERAL DIAGNOSES: Past Medical History Diagnosis Date Cervical spondylosis with myelopathy Cervical radiculopathy C3-C7 Hypertension GERD (gastroesophageal reflux disease) Anxiety Tremor Restless leg syndrome PLAN: It was a pleasure seeing and evaluating this patient today, and I greatly appreciate the re ferral. The patient has failed to improve with extensive conservative care. I would think he would now be a candidate for a fusion at L4-5 and L5-S1 to address his stenosis, nerve co mpression, and spondylolisthesis. We discussed the risks, alternatives, and benefits to surgical intervention with Mr. Interiano in clinic. These risks included but were not limited to , stroke, heart attack, numbn ess, weakness, paralysis, failure of fusion, failure of hardware, subsidence, adjacent segme nt degeneration, cerebrospinal fluid leak, bleeding, infection, injury to surrounding tissue s and organs, injury from positioning, injury to the nerves, and need for additional surgery . Surgical options were discussed and the technique to be employed was described in detail to him. All his questions were answered. We discussed that the goal of the surgery is to prevent progression of his disease, but it is not considered a cure. We also discussed that although some patients may obtain 100% sym ptom relief, it is realistic to anticipate that some symptoms will continue postoperatively despite a successful surgery. We estimate it is reasonable for him to experience an 60% imp rovement in his symptoms after he heals. We also discussed that there is no guarantee that surgery will provide improvement in his c ondition, and indeed may even worsen the symptoms. We also discussed that in the course of the procedure the operative plan may be altered to include more, less, or different levels d epending upon findings in order to provide him with the best possible outcome. He will consider things and return when he decides definitively that he would like to proce ed with surgery. I spent 45 minutes in visit with Patrice Interiano today with the majority of time spent counse lling the patient on his diagnosis, options for his care, and coordinating his care. ELECTRONICALLY SIGNED BY: Mahendra Luna MD, 01/16/2012 12:10 documented in this encounter Plan of Treatment Not on filedocumented as of this encounter Visit Diagnoses + + | Diagnosis | + + | Spondylolisthesis of lumbar region - Primary Acquired spondylolisthesis | + + | Lumbar disc herniation with radiculopathy Displacement of lumbar intervertebral disc | | without myelopathy | + + | Degenerative disc disease, lumbar Degeneration of lumbar or lumbosacral | | intervertebral disc | + + | Lumbar spondylosis Lumbosacral spondylosis without myelopathy | + + documented in this encounter
--- OUTSIDE RECORDS SUMMARY | ~2019-11-12 | XMS | Encounter Summary ---
Demographics + + + | Address | [address] | | | [place] [address] | + + + | Home Phone | | + + + | Preferred Language | Unknown | + + + | Marital Status | | + + + | Pentecostal Affiliation | Unknown | + + + | Race | White | + + + | Ethnic Group | Not or | + + + Author + + + | Author | [facility] | | | and Brianana | + + + | Organization | [facility] | | [...] Team Providers + +------+ + | Care Wire Harness Assembler Name | Role | Phone | + [...] + + | Closed | Specialty | Sleep | Diagnoses | [facility], | [facility] | | | Services | Medicine | Nocturnal | Santi Fleming MD | [facility] | | | Required | | hypoxemia | [address] | [address] | [address] | | | | | | [place], | [place], | | | | | | [place] [address] | [place] [address] | | | | | | Phone: | Phone: | | | | | | [phone] | [phone] | | | | | | Fax: | Fax: | | | | | | [phone] | [phone] | +--------+ + + + + + Reason for Visit + + + | Reason | Comments | + + + | Establish Care | New patient/establish care | + + + Encounter Details +--------+---------+ + + + | Date | Type | Department | Care Team | Description | +--------+---------+ + + + | 01/31/ | Office | [facility] | Santi Dumont MD | Acute saddle | | 2017 | Visit | [address] | [address] [place] [address] | pulmonary embolism | | | | [address] [place], | [facility] [place] [place] | with acute cor | | | | [place] [address] | [id number] | pulmonale (HCC) | | | | [phone] | | (Primary Dx); Left | | | | | | hip pain; Nocturnal | | | | | | hypoxemia; Essential | | | | | | tremor; Essential | | | | | | hypertension; | | | | | | Preventative health | | | | | | care | +--------+---------+ + + + Social History [...] + + + | Blood Pressure | 128/72 | 01/31/2017 2:46 PM | | | | | PST | | + + + + + | Pulse | 76 | 01/31/2017 2:46 PM | | | | | PST | | + + + + + | Temperature | 36.7 C (98 F) | 01/31/2017 2:46 PM | | | | | PST | | + + + + + | Respiratory Rate | 16 | 01/31/2017 2:46 PM | | | | | PST | | + + + + + | Oxygen Saturation | 96% | 01/31/2017 2:46 PM | | | | | PST | | + + + + + | Inhaled Oxygen | - | - | | | Concentration | | | | + + + + + | Weight | 115.2 kg (253 lb | 01/31/2017 2:46 PM | | | | 15.5 oz) | PST | | + + + + + | Height | 177.8 cm (5' 10") | 01/31/2017 2:46 PM | | | | | PST | | + + + + + | Body Mass Index | 36.44 | 01/31/2017 2:46 PM | | | | | PST | | + + + + + documented in this encounter Patient Instructions Patient Instructions Santi Dumont MD - 01/31/2017 3:00 PM PSTContinue Eliquis Hip x-rays today Referral to sleep center Follow up 6 weeks documented in this encounter Progress Notes Santi Dumont MD - 01/31/2017 3:00 PM PST CHIEF COMPLAINT Chief Complaint Patient presents with [facility] New patient/[facility] HPI Patrice Interiano is a 61 y.o. male who presents to establish as a new patient He was previously a patient of Dr. Vitor Miranda, who retired recently. Patient has been in [facility] this year due to lumbar radiculopathy and spinal stenosis. He had lumbar spine surgery (L2-S1 fusion) November [address] Mayes, with improvement of left leg sciatica and back pain. 2 weeks later he noted onset of shortness of breath, and w as subsequently diagnosed with saddle embolism and acute right heart failure, hospitalized a [facility]. He was treated with IV heparin, then switch to Eliquis. He did no t receive thrombolytics. On admission he required 12 L of oxygen per minute and had severe pulmonary hypertension. By discharge he required only 1.5 L of oxygen at night for nocturna l hypoxemia. He denies chest pain at present but is still short of breath on exertion. He tolerates Lazarus Effect short distances in his house, accomplishing 1000 -1500 steps per day. He complains of severe left hip pain and decreased range of motion, has difficulty performi ng pedicure, and notes a creaking harsh crepitus with hip motion. REVIEW OF SYSTEMS Positive for weight gain, efforts to lose weight, normal appetite. He wears eye glasses. He endorses hearing loss, tinnitus and wears hearing aids. He has ankle swelling, shortness of breath wheezing and orthopnea. Has history of heartburn. He has chronic back pain radi ating into the left hip, has leg numbness and weakness and chronic tremor. He has history o f anxiety. Remainder of 12-point review of systems negative. PAST MEDICAL HISTORY Patient Active Problem List Diagnosis Date Noted Preventative health care 02/04/2017 Note Last Updated: 02/04/2017 Last CRCS: 2010; next due 2020 PSA: Nocturnal hypoxemia 01/31/2017 Note Last Updated: 02/04/201711/2016 overnight oximetry on room air showed O2 saturation 68-97%, 456 minutes with satu rations less than 89% Acute deep vein thrombosis (DVT) of left lower extremity (HCC) 201612/04/2016 Saddle embolus of pulmonary artery with acute cor pulmonale (HCC) 201612/03/2016 Lumbar radiculopathy 07/19/2016 Lumbar spinal stenosis 07/19/2016 Hypertension 201403/07/2014 Note Last Updated: 02/04/2017 Benicar ineffective Amlodipine not tolerated due to edema Cervical spondylosis with myelopathy Cervical radiculopathy Note Last Updated: 11/29/2011 C3-C7 Spondylolisthesis of lumbar region Lumbar degenerative disc disease GERD (gastroesophageal reflux disease) Anxiety Restless leg syndrome Essential tremor 02/01/1968 Note Last Updated: 01/31/2017 Onset age 12 Primidone intolerant Gabapentin ineffective [facility] evaluation 04/2016 advise consideration of deep brain stimulation FAMILY HISTORY Family History Problem Relation Age of Onset Lung cancer Mother age 65 Heart disease Father age 85 Diabetes, NIDDM Father Other (see comment) Father Tremor High blood pressure Father Diabetes Sister Other (see comment) Sister Tremor High blood pressure Sister Diabetes Brother High blood pressure Brother High blood pressure Child No Known Problems Child Colon cancer Maternal Grandmother SOCIAL HISTORY Social History Social History Marital status: Spouse name: Gely Number of children: 2 Years of education: 12 Occupational History [employer] Disabled 04/2016 Social History Main Topics Smoking status: Former Smoker Smokeless tobacco: Former User Alcohol use No Drug use: No Sexual activity: Yes Other Topics Concern None Social History Narrative None SURGICAL HISTORY Past Surgical History: Procedure Laterality Date CERVICAL FUSION 06/2011 Dr. Luna; [facility] COLONOSCOPY 2010 EGD 1999 HERNIA REPAIR 08/03/2010 Herniorraphy; Krish; [place] INCISION AND DRAINAGE 2007 Thrombosed hemorrhoid. KNEE ARTHROSCOPY 2014 Dr. Brothers; [place] LUMBAR FUSION 01/2012 Dr. Luna; [facility] TONSILLECTOMY AND ADENOIDECTOMY TYMPANOPLASTY TUBES VASECTOMY CURRENT MEDICATIONS Current Outpatient Prescriptions Medication Sig Dispense Refill acetaminophen ([facility] 8 HOUR PAIN RELIEF) 650 MG CR tablet Take by mouth. albuterol (PROAIR HFA) 90 mcg/puff inhaler Inhale 2 puffs into the lungs every 6 hours as needed for Wheezing. apixaban (ELIQUIS) 5 mg tablet Take 1 tablet by mouth 2 times daily. 60 tablet 4 furosemide (LASIX) 40 mg tablet Take 1 tablet by mouth Daily. 30 tablet 5 lisinopril (PRINIVIL, ZESTRIL) 20 mg tablet Take 2 tablets by mouth Daily. 40 tablet 5 loratadine (CLARITIN) 10 mg tablet Take by mouth Daily. nadolol (CORGARD) 80 MG tablet Take 0.5 tablets by mouth Daily. 30 tablet 5 omeprazole (PRILOSEC) 20 mg capsule Take 20 mg by mouth every morning (before breakfast ). POTASSIUM CHLORIDE PO Take 1 mEq by mouth Daily. pramipexole (MIRAPEX) 0.5 MG tablet Take 1 tablet by mouth Daily. 90 tablet 3 sertraline (ZOLOFT) 50 mg tablet Take 50 mg by mouth Daily. terazosin (HYTRIN) 5 mg capsule Take 1 capsule by mouth Daily. 30 capsule 6 No current facility-administered medications for this visit. ALLERGIES No Known Allergies PHYSICAL EXAM VITAL SIGNS: BP 128/72 | Pulse 76 | Temp 36.7 C (98 F) (Tympanic) | Resp 16 | Ht 1. 778 m (5' 10") | Wt 115.2 kg (253 lb 15.5 oz) | SpO2 96% | BMI 36.44 kg/m Constitutional: Well developed, obese man in no acute distress, Non-toxic appearance. HENT: Normocephalic, Atraumatic, Bilateral external ears normal, Oropharynx moist, good air way present. No oral exudates, Nose normal. Hypopigmented scarring over the right side of face and neck Eyes: PERRLA, EOMI, Conjunctiva normal, No discharge. Neck: No tenderness, Supple, No laryngeal stridor. Healed right anterior neck incision Lymphatic: No lymphadenopathy noted. Cardiovascular: Normal heart rate, Normal rhythm, No murmurs, No rubs, No gallops. JVP not elevated. P2 not accentuated. No RV lift Thorax & Lungs: Clear to auscultation and percussion, respirations unlabored, No chest tend erness. Abdomen: Bowel sounds normal, obese, Soft, No tenderness, No masses, No hepatosplenomegaly. No inguinal hernia palpable Skin: Warm, Dry, No erythema, No rash. Back: No tenderness, No CVA tenderness. Well-healed midline lumbar, paralumbar and left fl ank incisions Extremities: Intact distal pulses, No edema, No tenderness, No cyanosis, No clubbing. Musculoskeletal: Left hip lacks 30 of flexion, lacks 10 of internal rotation and has ma rked crepitus on adduction Neurologic: Alert & oriented x 3, intention tremor of both hands Psychiatric: Affect normal, Mood normal. IMPRESSION/PLAN 1. Acute saddle pulmonary embolism with acute cor pulmonale (HCC) He has clinically resolved signs of right heart failure. Given that he had a provoked firs t pulmonary embolism, 6 month course of treatment is recommended. Check d-dimer prior to rivera lting anticoagulation. 2. Left hip pain Suspect severe underlying hip osteoarthritis. Patient could be a candidate for hip cortico steroid injection, but definitive treatment will be deferred until pulmonary embolism is david quately treated - XR Pelvis 1 or 2 Vw; Future - XR Hip Left 2-3 Views; Future 3. Nocturnal hypoxemia Recommend referral to sleep center for sleep apnea screening - * [facility] Sleep Disorder - AMB Referral 4. Restless leg syndrome Consider sertraline reduction at follow-up RECOMMENDATIONS Follow up Return in about 6 weeks (around 03/14/2017). documented in this enc ounter Plan of Treatment + +---------+--------+ + + | Name | Type | Priori | Associated Diagnoses | Order Schedule | | | | ty | | | + +---------+--------+ + + | XR Pelvis 1 or 2 Vw | Imaging | Routin | Left hip pain | Expected: | | | | e | | 01/31/2017, Expires: | | | | | | 02/01/2018 | + +---------+--------+ + + + + +--------+ + + | Name | Type | Priori | Associated Diagnoses | Order Schedule | | | | ty | | | + + +--------+ + + | * [facility] | Outpatient | Routin | Nocturnal | Ordered: 01/31/2017 | | Sleep Disorder - AMB | Referral | e | hypoxemia | | | Referral | | | | | + + +--------+ + + documented as of this encounter Results XR Hip Left 2-3 Views (01/31/2017 4:33 PM PST) + + | Specimen | + + | | + + + + + | Narrative | Performed At | + + + | XR HIP LEFT 2-3 VIEWS 01/31/2017 4:33 PM HISTORY: left hip pain. | [facility] | | COMPARISON: 04/26/2011. FINDINGS: The left hip demonstrate | | | advanced degenerative changes. Moderate degenerative changes are seen | | | of the right hip. The femoral heads demonstrate normal round | | | contours. These degenerative changes have progressed compared to | | | 04/26/2011. Fusion hardware extend from the lumbar spine into level S1. | | | Bone mineralization is normal. There are clips in the region of the | | | scrotum. IMPRESSION - Advanced degenerative changes of left hip | | | that has progressed. Dictated and Signed by: Sergio Santos MD | | | Electronically signed: 01/31/2017 6:49 PM | | + + + + + | Procedure Note | + + | Francisco, Rad Results In - 01/31/2017 6:52 PM PST XR HIP LEFT 2-3 VIEWS 01/31/2017 4:33 | | PMHISTORY: left hip pain.COMPARISON: 04/26/2011.FINDINGS:The left hip demonstrate advanced | | degenerative changes. Moderate degenerativechanges are seen of the right hip. The | | femoral heads demonstrate normal roundcontours. These degenerative changes have | | progressed compared to 04/26/2011.Fusion hardware extend from the lumbar spine into level | | S1. Bone mineralizationis normal. There are clips in the region of the | | scrotum.IMPRESSION -Advanced degenerative changes of left hip that has | | progressed.Dictated and Signed by: Sergio Santos MD Electronically signed: 01/31/2017 | | 6:49 PM | |contours. These degenerative changes have progressed compared to 04/26/2011. | |Fusion hardware extend from the lumbar spine into level S1. Bone mineralization | |is normal. There are clips in the region of the scrotum. | | | |IMPRESSION - | |Advanced degenerative changes of left hip that has progressed. | | | |Dictated and Signed by: Sergio Santos MD | | Electronically signed: 01/31/2017 6:49 PM | + + + +---------+ + + | Performing | Address | City/State/Zipcode | Phone Number | | Organization | | | | + +---------+ + + | [facility] | | | | + +---------+ + + documented in this encounter Visit Diagnoses + + | Diagnosis | + + | Acute saddle pulmonary embolism with acute cor pulmonale (HCC) - Primary | + + | Left hip pain Pain in joint, pelvic region and thigh | + + | Nocturnal hypoxemia Hypoxemia | + + | Essential tremor | + + | Essential hypertension Unspecified essential hypertension | + + | Preventative health care Routine [facility] at [facility] | | facility | + + documented in this encounter
--- OUTSIDE RECORDS SUMMARY | ~2019-11-12 | XMS | Clinical Summary ---
Demographics + + + | Address | [address] | | | [place] [address] | + + + | Home Phone | | + + + | Preferred Language | Unknown | + + + | Marital Status | | + + + | Mormonism Affiliation | Unknown | + + + | Race | White | + + + | Ethnic Group | Not or | + + + Author + + + | Author | [facility] | + + + | Organization | [facility] | + + + | Address | Unknown | + + + | Phone | Unavailable | + + + Support + + +---------+ + | Name | Relationship | Address | Phone | + + +---------+ + | Gely Interiano | ECON | Unknown | | + + +---------+ + Care Team Providers + +------+ + | Care Office Bookkeeper Name | Role | Phone | + +------+ + | Isaac Miranda MD | PCP | | + +------+ + Source Comments [facility] is fully live on both [facility] and [facility]] Allergies No Known Allergies Medications + + + +---------+------+------+-------+ | Medication | Sig | Dispensed | Refills | Star | End | Statu | | | | | | t | Date | s | | | | | | Date | | | + + + +---------+------+------+-------+ | terazosin 2 mg | Take by mouth. | | 0 | | | Activ | | oral capsule | | | | | | e | + + + +---------+------+------+-------+ | sertraline 50 mg | Take by mouth. | | 0 | | | Activ | | oral tablet | | | | | | e | + + + +---------+------+------+-------+ | nadolol 80 mg oral | Take by mouth. | | 0 | | | Activ | | tablet | | | | | | e | + + + +---------+------+------+-------+ | lisinopril 20 mg | Take by mouth. | | 0 | | | Activ | | oral tablet | | | | | | e | + + + +---------+------+------+-------+ | pramipexole 0.5 mg | Take by mouth. | | 0 | | | Activ | | oral tablet | | | | | | e | + + + +---------+------+------+-------+ | OMEPRAZOLE, BULK, | 20.6 mg. | | 0 | | | Activ | | MISC | | | | | | e | + + + +---------+------+------+-------+ | loratadine 10 mg | Take 10 mg by mouth | | 0 | | | Activ | | oral tablet | once daily. | | | | | e | + + + +---------+------+------+-------+ | | | | 0 | 02/0 | | Activ | | hydroCHLOROthiazide | | | | 8/20 | | e | | 12.5 mg oral tablet | | | | 17 | | | + + + +---------+------+------+-------+ | methocarbamol 750 | Take by mouth. | | 0 | | | Activ | | mg oral tablet | | | | | | e | + + + +---------+------+------+-------+ | | | | 0 | 03/0 | | Activ | | acetaminophen-codein | | | | 1/20 | | e | | e 300-30 mg oral | | | | 17 | | | | tablet | | | | | | | + + + +---------+------+------+-------+ | ACETAMINOPHEN | Take by mouth. | | 0 | | | Activ | | (TYLENOL 8 HOUR | | | | | | e | | ORAL) | | | | | | | + + + +---------+------+------+-------+ | gabapentin 300 mg | Take 1 capsule by | 90 | 11 | 03/0 | | Activ | | oral | mouth three times | capsule | | /20 | | e | | capsuleIndications: | daily. Indications: | | | 17 | | | | essential tremor | Essential Tremor | | | | | | + + + +---------+------+------+-------+ Active Problems Not on file Social History + +-------+ +--------+------+ | Tobacco [...] + + + | Blood Pressure | 154/94 | 04/25/2016 8:16 AM | | | | | PST | | + + + + + | Pulse | 107 | 04/25/2016 8:16 AM | | | | | PST | | + + + + + | Temperature | - | - | | + + + + + | Respiratory Rate | - | - | | + + + + + | Oxygen Saturation | - | - | | + + + + + | Inhaled Oxygen | - | - | | | Concentration | | | | + + + + + | Weight | 103.4 kg (228 lb) | 04/25/2016 8:11 AM | | | | | PST | | + + + + + | Height | - | - | | + + + + + | Body Mass Index | - | - | | + + + + + Plan of Treatment + + +-------+ + | Health Maintenance | Due Date | Last | Comments | | | | Done | | + + +-------+ + | Influenza (Flu) | | | | | vaccination (#1) | 0 | | | + + +-------+ + | Pneumococcal | Aged Out | | No longer eligible based on patient's age | | vaccination | | | to complete this topic | + + +-------+ + Results Not on filefrom Last 3 Months Insurance + +--------+ +--------+ + +------+ | Payer | Benefi | Subscriber | Effect | Phone | Address | Type | | | t Plan | ID | [place] | | | | | | / | | Dates | | | | | | Group | | | | | | + +--------+ +--------+ + +------+ | [employer] | PACIFI | [id number] | 02/19/19 | [phone] | [address] | PPO | | | [place] | | [address] | [address] | | | [address] | | sent | | [place] | | | | | | | | , [place] | | | | | | | | [address] | | + +--------+ +--------+ + +------+ + +--------+ +--------+ + + | Guarantor Name | Accoun | Relation to | Date | Phone | Billing Address | | | t Type | Patient | of | | | | | | | | | | + +--------+ +--------+ + + | Patrice Interiano | Person | Self [birth year] | [address] | | | jud/[place] | | 1955 | [phone] | [place] [address] | | | [place] | | | [address] (Home) | | + +--------+ +--------+ + +"
--- OUTSIDE RECORDS SUMMARY | ~2019-11-12 | XMS | Encounter Summary ---
Demographics + + + | Address | [address] | | | [place] [address] | + + + | Home Phone [...] + + | Author | [facility] | | | and Brianana | + + + | Organization | [facility] | | [...] Team Providers + +------+ + | Care Graphic Designer Name | Role | Phone | + +------+ + | Isaac Miranda MD | PCP | | + +------+ + Reason for Visit + + + | Reason | Comments | + + + | Follow-up | 6 Month PO | + + + Encounter Details +--------+---------+ + + + | Date | Type | Department | Care Team | Description | +--------+---------+ + + + | 08/20/ | Office | [facility] | Mahendra Luna MD | Spondylolisthesis of | | 2012 | Visit | NEUROSURGERY [address] | [address] [facility] [address] | lumbar region | | | | [address] | [place] [address] | (Primary Dx); | | | | [place] | [phone] | Cervical spondylosis | | | | [address] | | with myelopathy | | | | [phone] | | | +--------+---------+ + + + [...] + + + | Blood Pressure | 127/83 | 08/20/2012 1:07 PM | | | | | PDT | | + + + + + | Pulse | 55 | 08/20/2012 1:07 PM | | | | | PDT | | + + + + + | Temperature | - | - | | + + + + + | Respiratory Rate | 18 | 08/20/2012 1:07 PM | | | | | PDT | | + + + + + | Oxygen Saturation | - | - | | + + + + + | Inhaled Oxygen | - | - | | | Concentration | | | | + + + + + | Weight | 98.9 kg (218 lb) | 08/20/2012 1:07 PM | | | | | PDT | | + + + + + | Height | 177.8 cm (5' 10") | 08/20/2012 1:07 PM | | | | | PDT | | + + + + + | Body Mass Index | 31.28 | 08/20/2012 1:07 PM | | | | | PDT | | + + + + + documented in this encounter Progress Notes Mahendra Luna MD - 08/20/2012 3:01 PM PDTFormatting of this note might be different from t he original. Mahendra Luna MD [address] [facility] [address] [place] [address] FAX: NEUROSURGERY FOLLOW-UP CHIEF COMPLAINT: Chief Complaint Patient presents with Follow-up 6 Month PO HISTORY OF PRESENT ILLNESS: The patient is a 57 y.o. male that had a cervical fusion and a lumbar fusion by me. He returns and overall is doing fairly well. In terms of his neck, h is pain is reduced and he notices tremor less and less. He is regaining his coordination in his hands. All of this was good to see at this stage given his severe myelopathy. He also had a lumbar surgery for his lumbar disease. He is now 6 months out from surgery. He was doing well until last week. He noticed a severe right sided muscle spasm. It has since imp roved significantly. He heard a popping noise in his back when it occurred and was worried that he had hurt something. He took some tylenol and muscle relaxors for these symptoms. PAST MEDICAL HISTORY: Past Medical History Diagnosis Date Cervical spondylosis with myelopathy Cervical radiculopathy C3-C7 Lumbar spondylosis Spondylolisthesis of lumbar region Lumbar facet arthropathy MULTILEVEL Lumbar degenerative disc disease Hypertension GERD (gastroesophageal reflux disease) Anxiety Tremor Restless leg syndrome Smokeless tobacco use PAST SURGICAL HISTORY: Past Surgical History Procedure Date Hernia repair Cervical fusion CURRENT MEDICATIONS: Current Outpatient Prescriptions Medication Sig Dispense Refill finasteride (PROSCAR) 5 mg tablet Take 5 mg by mouth Daily. furosemide (LASIX) 20 mg tablet Take 20 mg by mouth 2 times daily. Lactulose SOLN Take 30 mLs by mouth every 6 hours as needed (Constipation). 240 mL 1 lisinopril (PRINIVIL, ZESTRIL) 20 mg tablet Take 20 mg by mouth Daily. methocarbamol (ROBAXIN) 750 mg tablet Take 750 mg by mouth 4 times daily. nadolol (CORGARD) 80 MG tablet Take 80 mg by mouth Daily. oxyCODONE-acetaminophen (PERCOCET) 5-325 mg per tablet Take 1-2 tablets by mouth every 4 hours as needed for Pain. 90 tablet 0 pramipexole (MIRAPEX) 0.5 MG tablet Take 0.5 mg by mouth Daily. sertraline (ZOLOFT) 50 mg tablet Take 50 mg by mouth Daily. tamsulosin (FLOMAX) 0.4 mg CAPS Take 0.4 mg by mouth daily (after breakfast). terazosin (HYTRIN) 2 MG capsule Take 2 mg by mouth nightly. traMADol (ULTRAM) 50 mg tablet Take 1 tablet by mouth every 8 hours as needed for Pain. 60 tablet 2 ALLERGIES: No Known Allergies SOCIAL HISTORY: The patient reports that he has never smoked. He has quit using smokeless tobacco. He repo rts that he drinks alcohol. He reports that he does not use illicit drugs. FAMILY HISTORY: Family History Problem Relation Age of Onset Cancer Mother Heart disease Father Diabetes Father Hypertension Father Diabetes Sister Hypertension Sister Diabetes Brother Hypertension Brother INTERIM PHYSICAL EXAMINATION: Blood pressure 127/83, pulse 55, resp. rate 18, height 1.778 m (5' 10"), weight 98.884 kg ( 218 lb). Body mass index is 31.28 kg/(m^2). GENERAL: Patrice Interiano is in no acute distress with unlabored respirations. SPINE: The patient s incisions are healed well. He has some paraspinous myofascial tende rness. EXTREMITIES: No lower extremity edema. NEUROLOGICAL EXAMINATION: MENTAL STATUS: The patient is awake, alert, and oriented. He follows simple and complex commands MOTOR EXAM: Motor strength is 5/5. This is improved from the preoperative exam. SENSORY EXAM: The sensory examination improved from the preoperative exam. RADIOGRAPHIC REVIEW: The patient s postoperative x-rays show stable instrumentation and alignment and were rev iewed with the patient today during the visit. There has been increased arthrodesis in his neck and low back since the patient s last x-ray which was also reviewed for comparison. ASSESSMENT: S/P cervical and lumbar fusions for: Encounter Diagnoses Name Primary? Spondylolisthesis of lumbar region Yes Cervical spondylosis with myelopathy Past Medical History Diagnosis Date Cervical spondylosis with myelopathy Cervical radiculopathy C3-C7 Lumbar spondylosis Spondylolisthesis of lumbar region Lumbar facet arthropathy MULTILEVEL Lumbar degenerative disc disease Hypertension GERD (gastroesophageal reflux disease) Anxiety Tremor Restless leg syndrome Smokeless tobacco use PLAN: Overall, the patient is doing fairly well. I think he strained his back recently and do n ot see a hardware problem or issue. I do think his symptoms will be transient. I recommend ed light use of NSAIDS and reducing his muscle relaxor dose to reduce his sedation. In term s of his neck, the fusion is advancing and his clinical exam is improving. This was obvious ly good to see. I will have him return to discuss his options in 6-8 weeks of the pain persists. I spent 20 minutes in visit with Patrice Interiano today with the majority of time spent counse lling the patient on his recovery and coordinating his future care. ELECTRONICALLY SIGNED BY: Mahendra Luna MD, 08/20/2012 15:02 documented in this encounter Plan of Treatment Not on filedocumented as of this encounter Visit Diagnoses + + | Diagnosis | + + | Spondylolisthesis of lumbar region - Primary Acquired spondylolisthesis | + + | Cervical spondylosis with myelopathy | + + documented in this encounter
--- OUTSIDE RECORDS SUMMARY | ~2019-11-12 | XMS | Encounter Summary ---
Demographics + + + | Address | [address] | | | [place] [address] | + + + | Home Phone | | + + + | Preferred Language | Unknown | + + + | Marital Status | | + + + | Voodoo Affiliation | Unknown | + + + | Race | White | + + + | Ethnic Group | Not or | + + + Author + + + | Author | [facility] | | | and Brianana | + + + | Organization | [facility] | | | [...] Team Providers + +------+ + | Care Compensation Associate Name | Role | Phone | + +------+ + PCP | Unavailable | + +------+ + Encounter Details +--------+ + + + + | Date | Type | Department | Care Team | Description | +--------+ + + + + | 10/10/ | Hospital | [facility] | Stas Whalen | | | 2011 | Encounter | MED CTR XRAY [address] | | | | [place] | [address] [place], [place] | | | | | [place] [address] | [address] | | | | | [phone] | | | +--------+ + + + [...] + + | FL EPIDURAL STEROID | | 10/11/2011 | | Results for this | | INJECTION LUMBAR | | 1:45 PM | | procedure are in the | | TRANSFORAMINAL | | PDT | | results section. | + +--------+ + + + documented in this encounter Results FL CRISTINE Lumbar Transforaminal (10/11/2011 1:45 PM PDT) + + | Specimen | + + | | + + + + + | Narrative | Performed At | + + + | [facility] Diagnostic Imaging Department | [facility] | | [address] [facility] | [facility] | | EPIDURAL STEROID INJECTION, | D[facility] IMG | | 10/11/2011 CLINICAL HISTORY: ICD-9 CODE 724.4, LUMBAR | | | RADICULITIS Mr. Patrice Interiano presents to the fluoroscopy suite for | | | fluoroscopically-guided right L4-L5 and right L5-S1 transforaminal | | | epidural steroid injections as part of conservative therapy for | | | chronic pain with lumbar radiculopathy and degenerative disk | | | disease. After informed consent was obtained, the patient lie on | | | the fluoroscopy table, the areas were identified under fluoroscopic | | | guidance. The area was prepped and draped in sterile fashion. A | | | 25-gauge 1.5 inch needle was inserted into each region and 3 mL of | | | buffered 1% lidocaine was infused and a 22-gauge spinal needle was | | | inserted into the posterior superior transforaminal spaces | | | bilaterally and advanced into the epidural space under fluoroscopic | | | guidance. Confirmation into the epidural space was obtained with | | | infusion of approximately 1 mL Isovue contrast which showed epidural | | | flow as well as nerve sheath flow. Then, a combination of 2 mL of | | | 1% lidocaine and 2 mL of 6 mg/mL Celestone was infused between the 2 | | | levels. The patient tolerated the procedure well without | | | complications. Pre- and post-procedure blood pressure was stable. | | | The patient was given verbal as well as written instructions. | | | The patient reported some improvement in his pain post- procedure. | | | Prior to the start of the procedure, the following were | | | performed and verified including correct patient identification, | | | correct site/side marked and visible, including the procedure to be | | | done, correct patient positioning and accurate procedure consent | | | form. Any safety precautions based on clinical history and/or | | | medication use have been addressed. I personally performed the | | | procedure above.Dictated Date/Time: 10/11/2011 17:59 Transcribed | | | Date/Time: 10/11/2011 18:31 Airways Control Specialist: | | | <Electronically Signed by Stas Whalen MD> 10/20/11 1248 | | + + + + + | Procedure Note | + + | Francisco, Rad Conversion - 03/28/2013 5:54 PM [facility] | | Diagnostic Imaging Department | | [address] [facility] | | | | | | | | EPIDURAL STEROID INJECTION, 10/11/2011 | | | | CLINICAL HISTORY: ICD-9 CODE 724.4, LUMBAR RADICULITIS | | | | Mr. Patrice Interiano presents to the fluoroscopy suite for fluoroscopically-guided | | right L4-L5 and right L5-S1 transforaminal epidural steroid injections as part | | of conservative therapy for chronic pain with lumbar radiculopathy and | | degenerative disk disease. After informed consent was obtained, the patient | | lie on the fluoroscopy table, the areas were identified under fluoroscopic | | guidance. The area was prepped and draped in sterile fashion. A 25-gauge 1.5 | | inch needle was inserted into each region and 3 mL of buffered 1% lidocaine was | | infused and a 22-gauge spinal needle was inserted into the posterior superior | | transforaminal spaces bilaterally and advanced into the epidural space under | | fluoroscopic guidance. Confirmation into the epidural space was obtained with | | infusion of approximately 1 mL Isovue contrast which showed epidural flow as | | well as nerve sheath flow. Then, a combination of 2 mL of 1% lidocaine and 2 | | mL of 6 mg/mL Celestone was infused between the 2 levels. The patient | | tolerated the procedure well without complications. Pre- and post-procedure | | blood pressure was stable. The patient was given verbal as well as written | | instructions. The patient reported some improvement in his pain post- | | procedure. | | | | Prior to the start of the procedure, the following were performed and verified | | including correct patient identification, correct site/side marked and visible, | | including the procedure to be done, correct patient positioning and accurate | | procedure consent form. Any safety precautions based on clinical history and/or | | medication use have been addressed. | | | | I personally performed the procedure above.Dictated Date/Time: 10/11/2011 17:59 | | Transcribed Date/Time: 10/11/2011 18:31 | | Airways Control Specialist: | | <Electronically Signed by Stas Whalen MD> 10/20/11 1248 | + + + +---------+ + + | Performing | Address | City/State/Zipcode | Phone Number | | Organization | | | | + +---------+ + + | [facility] | | | | | [facility] | | | | + +---------+ + + documented in this encounter Visit Diagnoses Not on filedocumented in this encounter"
--- OUTSIDE RECORDS SUMMARY | ~2019-11-12 | XMS | Encounter Summary ---
Demographics + + + | Address | [address] | | | [place] [address] | + + + | Home Phone [...] + + + | Author | [facility] | + + + | Organization | [facility] | + + + | Address | Unknown | + + + | Phone | Unavailable | + + + Support + + +---------+ + | Name | Relationship | Address | Phone | + + +---------+ + | Gely Interiano | ECON | Unknown | | + + +---------+ + Care Team Providers + +------+ + | Care Medical Sales Associate Name | Role | Phone | + +------+ + | Isaac Miranda MD | PCP | | + +------+ + Encounter Details +--------+ + + + + | Date | Type | Department | Care Team | Description | +--------+ + + + + | 05/31/ | Document-Sc | Health Information | Unknown . | | | 2011 | anned | Services [id number] | | | | | | [address] | | | | | | Mailcode: [id number] | | | | | | [facility] | | | | | | [place], [place] | | | | | | [address] | | | | | | [phone] | | | +--------+ + + + [...] + + + | RADIOLOGY | | 06/01/2011 | | Results for this | | | | 12:00 AM | | procedure are in the | | | | PDT | | results section. | + +--------+ + + + documented in this encounter Results RADIOLOGY (06/01/2011 12:00 AM PDT) + + + | Narrative | Performed At | + + + | | | + + + documented in this encounter Visit Diagnoses Not on filedocumented in this encounter"
--- OUTSIDE RECORDS SUMMARY | ~2019-11-12 | XMS | Encounter Summary ---
Demographics + + + | Address | [address] | | | [place] [address] | + + + | Home Phone | | + + + | Preferred Language | Unknown | + + + | Marital Status | | + + + | Congregational Affiliation | Unknown | + + + | Race | White | + + + | Ethnic Group | Not or | + + + Author + + + | Author | [facility] | + + + | Organization | [facility] | + + + | Address | Unknown | + + + | Phone | Unavailable | + + + Support + + +---------+ + | Name | Relationship | Address | Phone | + + +---------+ + | Gely Interiano | ECON | Unknown | | + + +---------+ + Care Team Providers + +------+ + | Care Security Tester Name | Role | Phone | + +------+ + | Isaac Miranda MD | PCP | | + +------+ + Encounter Details +--------+ + + + + | Date | Type | Department | Care Team | Description | +--------+ + + + + | 04/03/ | Document-Sc | Health Information | Unknown . | | | 2012 | anned | Services [id number] | | | | | | [address] | | | | | | Mailcode: [id number] | | | | | | [facility] | | | | | | [place], [place] | | | | | | [address] | | | | | | [phone] | | | +--------+ + + + [...] + + + | RADIOLOGY | | 04/03/2012 | | Results for this | | | | 12:00 AM | | procedure are in the | | | | PST | | results section. | + +--------+ + + + documented in this encounter Results RADIOLOGY (04/03/2012 12:00 AM PST) + + + | Narrative | Performed At | + + + | | | + + + documented in this encounter Visit Diagnoses Not on filedocumented in this encounter"
--- OUTSIDE RECORDS SUMMARY | ~2019-11-12 | XMS | Encounter Summary ---
Demographics + + + | Address | [address] | | | [place] [address] | + + + | Home Phone | | + + + | Preferred Language | Unknown | + + + | Marital Status | | + + + | Islam Affiliation | Unknown | + + + | Race | White | + + + | Ethnic Group | Not or | + + + Author + + + | Author | [facility] | | | and rBianana | + + + | Organization | [facility] | | | [...] Team Providers + +------+ + | Care Satellite Dish Technician Name | Role | Phone | + +------+ + | Isaac Miranda MD | PCP | | + +------+ + Encounter Details +--------+ + + + + | Date | Type | Department | Care Team | Description | +--------+ + + + + | 02/04/ | Abstract | [facility] [place] | Mahendra Luna MD | | | 2011 | | NEUROSURGERY [address] | | | | | [address] | [place] [address] | | | | | [place] | [phone] | | | | | [address] | | | | | | [phone] | | | +--------+ + + + [...]
--- OUTSIDE RECORDS SUMMARY | ~2019-11-12 | XMS | Encounter Summary ---
Demographics + + + | Address | [address] | | | [place] [address] | + + + | Home Phone | | + + + | Preferred Language | Unknown | + + + | Marital Status | | + + + | Anglican Affiliation | Unknown | + + + | Race | White | + + + | Ethnic Group | Not or | + + + Author + + + | Author | [facility] | | | and Brianana | + + + | Organization | [facility] | | [...] Team Providers + +------+ + | Care Plasma Table Operator Name | Role | Phone | [...] Description | +--------+--------+ + + + | 04/02/ | Refill | [facility] [place] [facility] | Santi Dumont MD | Medication Refill | | 2020 | | MEDICINE [address] [place] [address] | [address] [facility] | | | | | [address] [facility], | [place], [place] | | | | | [place] [address] | [address] | | | | | [phone] | | | +--------+--------+ + + + [...]
--- OUTSIDE RECORDS SUMMARY | ~2019-11-12 | XMS | Encounter Summary ---
Demographics + + + | Address | [address] | | | [place] [address] | + + + | Home Phone [...] Team Providers + +------+ + | Care Coding Assistant Name | Role | Phone | + +------+ + | Isaac Miranda MD | PCP | | + +------+ + Encounter Details +--------+ + + + + | Date | Type | Department | Care Team | Description | +--------+ + + + + | 11/28/ | Abstract | [facility] [place] | Mahendra Luna MD | | | 2011 | | NEUROSURGERY [address] | [address] | | | | | [address] | [place] [address] | | | | | [place] | [phone] | | | | | [address] | | | | | | [phone] | | | +--------+ + + + [...]
--- OUTSIDE RECORDS SUMMARY | ~2019-11-12 | XMS | Encounter Summary ---
Demographics + + + | Address | [address] | | | [place] [address] | + + + | Home Phone | | + + + | Preferred Language | Unknown | + + + | Marital Status | | + + + | Mormonism Affiliation | Unknown | + + + | Race | White | + + + | Ethnic Group | Not or | + + + Author + + + | Author | [facility] | | | and Brianana | + + + | Organization | [facility] | | | [...] Team Providers + +------+ + | Care Plywood Matcher Name | Role | Phone | + +------+ + | Santi Dumont MD | PCP | | + +------+ + Reason for Visit Evaluate & Treat (Routine) +--------+ + + + + + | Status | Reason | Specialty | Diagnoses / | Referred By | Referred To | | | | | Procedures | Contact | Contact | +--------+ + + + + + | Closed | Specialty | Sleep | Diagnoses | Bet[place], | [facility] | | | Services | Medicine | DICKSON | MD Tiesha | Center [address] | | | Required | | (obstructive | [address] | [place] | | | | | sleep | [address] | [place], | | | | | apnea) | [place] | [place] [address] | | | | | Procedures | [id number] | Phone: | | | | | [facility] | Phone: | [phone] | | | | | STUDY, | [phone] | Fax: | | | | | UNATTENDED, | Fax: | [phone] | | | | | SIMUL RECORD | [phone] | | | | | | HR/O2 | | | | | | | SAT/RESP | | | | | | | FLOW/RESP | | | | | | | EFF HST | | | +--------+ + + + + + Encounter Details +--------+ + + + + | Date | Type | Department | Care Team | Description | +--------+ + + + + | 04/02/ | Hospital | [facility] | Tiesha Pérez MD | DICKSON (obstructive | | 2018 - | Encounter | [facility] | [address] | sleep apnea) | | | | CENTER [address] | [place] | | | | | [place] | [address] | | | 2017 | | [address] | | | | | | [phone] | | | +--------+ + + + [...] Take 1 tablet by | 60 | 4 | 02/01/20 | | | 5 mg tablet | mouth 2 times daily. | tablet | | 17 | 8 [...] + + documented as of this encounter Procedure Notes Tiesha Pérez MD - 04/04/2017 1:03 PM PSTAssociated Order(s): SLEEP STUDY HOME SLEEP TEST Pre-Procedure Diagnose(s): DICKSON (obstructive sleep apnea)Post-Procedure Diagnose(s): DICKSON (obs tructive sleep apnea) [facility] [place] [address] Unattended, Multiparameter, Sleep Apnea Test for Patrice Interiano performed on April 02. Identifying Information: Patrice Interiano is a 61 y.o. male who is referred for unattended, mu lti-parameter, sleep apnea test because of probable Obstructive Sleep Apnea. he has a histor y of status post DVT and pulmonary embolism in November 2016, GERD and h/o of hiatal hernia, hypertension, lumbar radiculopathy status post lumbar fusion in October 2016, anxiety, ess ential tremor, and restless legs syndrome presenting with nocturnal hypoxemia for evaluation of obstructive sleep apnea. He had an overnight oximetry on room air on December 13, 2016. It showed mean SPO2 at 86%, sarah SPO2 was 68%, and he had spent 407 minutes <= 88%. Starte d on oxygen 1.5 l/m at night. BMI: 35.7 Technical Information: The study was performed on April 02, 2017 using the [employer] Nom[employer] equipment with Polysmith Version 9 Software. The study was hand scored and hand analyz ed. The following physiologic parameters were monitored: snoring, body position, oxygen satu ration, heart rate, nasal airflow (PTAF), oral airflow (thermister) and thoracic and abdomin al effort (RIP belts). EEG was not monitored and thus sleep staging was not performed. A sle ep efficiency of 100% was assumed for the purposes of calculating indices; this assumption c an result in a significant underestimation of disease severity. Because EEG was not monitore d, Respiratory Effort Related Arousals could not be enumerated; this can also result in unde restimation of disease severity. The sensitivity for Obstructive Sleep Apnea of this type of study is high but the specificity is low. Definitions (The AASM Manual for the Scoring of Sleep and Associated Events, Version 2.3; 2 016): Apnea: There is a drop in the peak signal excursion by 90% or greater of pre-event baselin e using an oronasal thermal sensor, or an alternative apnea sensor and the duration of the 9 0% or greater drop in sensor signal is greater than or equal to 10 seconds. Obstructive Apnea: Event associated with continued or increased inspiratory effort throug hout the entire period of absent airflow. Central Apnea: Event associated with absent inspiratory effort throughout the entire jon od of absent airflow. Because EEG is not monitored, Central Apneas cannot be scored with any degree of reliability on this type of sleep study. Mixed Apnea: Event associated with absent inspiratory effort in the initial portion of th e event followed by resumption of inspiratory effort during the second portion of the event. Because EEG is not monitored, mixed apneas are not reliably scored on this type of study. Hypopnea: The peak signal excursions drop by 30% or more of pre-event baseline using nasal pressure (diagnostic study), PAP device flow (titration study), or an alternative hypopnea sensor (diagnostic study). The duration of the 30% or greater drop in signal excursion must last for 10 seconds or longer. The event is associated with a 3% or greater oxygen desaturat ion from pre-event baseline or the event is associated with an arousal. Respiratory Event Related Arousal: Because EEG is not recorded, Respiratory Event Related Arousal's cannot be enumerated. Results: Data collection commenced at 20:00 on April 02, 2017 and data collection termi nated at 05:07 on April 03, 2017. During the 546.5 minutes of index study time there we re 7 obstructive apneas, 1 central apneas, 0 mixed apneas and 261 hypopneas. The CATARINO was 29.5 which is severely elevated. Relative time in supine position was 9.6%. The events were not worsened in the supine position with CATARINO of 28.6. Non-supine CATARINO was 29.6. Mean oxygen oxygen saturation was 90%, sarah saturation was 84% , and patient sdate 33.3% o f time (180 minutes )below 90%. 3% Oxygen desaturation index was 34.8 and Severely elevated . Average heart rate was 54 bpm. Interpretation: This home sleep apnea testing (HSAT) showed moderate to severe obstructive sleep apnea. Mean oxygen oxygen saturation was 90%, sarah saturation was 84% , and patient s date 33.3% of time (180 minutes )below 90%. The study was technically adequate study. Recommendations: Ideally, we should perform a separate CPAP titration study because the patient is on noctu rnal supplemental oxygen currently. However, since the hypoxemia appears to be primarily du e to obstructive sleep apnea, the alternative option would be starting a trial of auto-CPAP at 5-20 cm H2O followed by an overnight oximetry. Tiesha Pérez MD Portions of this chart may have been created with Perzo voice recognition software. Occasi onal wrong-word or sound-alike substitutions may have occurred due to the inherent acevedo itations of voice recognition software. Please read the chart carefully and recognize, using context, where these substitutions have occurred. documented in this encounter Plan of Treatment Not on filedocumented as of this encounter Procedures + +--------+ + + + | Procedure Name | Priori | Date/Time | Associated Diagnosis | Comments | | | ty | | | | + +--------+ + + + | SLEEP STUDY HOME | Routin | 04/04/2017 | | Results for this | | SLEEP TEST | e | 1:03 PM | | procedure are in the | | | | PST | | results section. | + +--------+ + + + documented in this encounter Results Sleep study home sleep test (04/04/2017 1:03 PM PST) + + + | Narrative | Performed At | + + + | Tiesha Pérez | | | 04/04/2017 13:19 [facility] | | | [place] [address] Unattended, | | | Multiparameter, Sleep Apnea Test for Patrice Interiano performed on | | | April 02, 2017. Identifying Information: Patrice Interiano is a 61 y.o. | | | male who is referred for unattended, multi-parameter, sleep apnea | | | test because of probable Obstructive Sleep Apnea. he has a history of | | | status post DVT and pulmonary embolism in November 2016, GERD and h/o | | | of hiatal hernia, hypertension, lumbar radiculopathy status post | | | lumbar fusion in October 2016, anxiety, essential tremor, and | | | restless legs syndrome presenting with nocturnal hypoxemia for | | | evaluation of obstructive sleep apnea. He had an overnight oximetry on | | | room air on December 13, 2016. It showed mean SPO2 at 86%, sarah | | | SPO2 was 68%, and he had spent 407 minutes <= 88%. Started on oxygen | | | 1.5 l/m at night. BMI: 35.7 Technical Information: The study was | | | performed on April 02, 2017 using the [employer] Nomad equipment | | | with [employer] Version 9 Software. The study was hand scored and hand | | | analyzed. The following physiologic parameters were monitored: | | | snoring, body position, oxygen saturation, heart rate, nasal airflow | | | (PTAF), oral airflow (thermister) and thoracic and abdominal effort | | | (RIP belts). EEG was not monitored and thus sleep staging was not | | | performed. A sleep efficiency of 100% was assumed for the purposes of | | | calculating indices; this assumption can result in a significant | | | underestimation of disease severity. Because EEG was not monitored, | | | Respiratory Effort Related Arousals could not be enumerated; this can | | | also result in underestimation of disease severity. The sensitivity | | | for Obstructive Sleep Apnea of this type of study is high but the | | | specificity is low. Definitions (The AASM Manual for the Scoring of | | | Sleep and Associated Events, Version 2.3; 2016): Apnea: There is a | | | drop in the peak signal excursion by 90% or greater of pre-event | | | baseline using an oronasal thermal sensor, or an alternative apnea | | | sensor and the duration of the 90% or greater drop in sensor signal is | | | greater than or equal to 10 seconds. Obstructive Apnea: Event | | | associated with continued or increased inspiratory effort throughout | | | the entire period of absent airflow. Central Apnea: Event associated | | | with absent inspiratory effort throughout the entire period of absent | | | airflow. Because EEG is not monitored, Central Apneas cannot be | | | scored with any degree of reliability on this type of sleep study. | | | Mixed Apnea: Event associated with absent inspiratory effort in the | | | initial portion of the event followed by resumption of inspiratory | | | effort during the second portion of the event. Because EEG is not | | | monitored, mixed apneas are not reliably scored on this type of study. | | | Hypopnea: The peak signal excursions drop by 30% or more of pre-event | | | baseline using nasal pressure (diagnostic study), PAP device flow | | | (titration study), or an alternative hypopnea sensor (diagnostic | | | study). The duration of the 30% or greater drop in signal excursion | | | must last for 10 seconds or longer. The event is associated with a 3% | | | or greater oxygen desaturation from pre-event baseline or the event is | | | associated with an arousal. Respiratory Event Related Arousal: | | | Because EEG is not recorded, Respiratory Event Related Arousal's | | | cannot be enumerated. Results: Data collection commenced at 20:00 on | | | April 02, 2017 and data collection terminated at 05:07 on | | | April 03, 2017. During the 546.5 minutes of index study time | | | there were 7 obstructive apneas, 1 central apneas, 0 mixed | | | apneas and 261 hypopneas. The CATARINO was 29.5 which is severely | | | elevated. Relative time in supine position was 9.6%. The events | | | were not worsened in the supine position with CATARINO of 28.6. | | | Non-supine CATARINO was 29.6.Mean oxygen oxygen saturation was 90%, sarah | | | saturation was 84% , and patient sdate 33.3% of time (180 minutes | | | )below 90%. 3% Oxygen desaturation index was 34.8 and Severely | | | elevated. Average heart rate was 54 bpm. Interpretation: This home | | | sleep apnea testing (HSAT) showed moderate to severe obstructive sleep | | | apnea. Mean oxygen oxygen saturation was 90%, sarah saturation was | | | 84% , and patient sdate 33.3% of time (180 minutes )below 90%. The | | | study was technically adequate study. Recommendations: Ideally, we | | | should perform a separate CPAP titration study because the patient | | | is on nocturnal supplemental oxygen currently. However, since the | | | hypoxemia appears to be primarily due to obstructive sleep apnea, the | | | alternative option would be starting a trial of auto-CPAP at 5-20 cm | | | H2O followed by an overnight oximetry. Tiesha Pérez MD Portions | | | of this chart may have been created with Perzo voice recognition | | | software. Occasional wrong-word or | | | | | | sound-alike | | | substitutions may have occurred due to the inherent limitations of | | | voice recognition software. Please read the chart carefully and | | | recognize, using context, where these substitutions have occurred. | | |Mean oxygen oxygen saturation was 90%, sarha saturation was 84% , | | |and patient sdate 33.3% of time (180 minutes )below 90%. 3% | | |Oxygen desaturation index was 34.8 and Severely elevated. | | |Average heart rate was 54 bpm. | | | | | |Interpretation: This home sleep apnea testing (HSAT) showed | | |moderate to severe obstructive sleep apnea. Mean oxygen oxygen | | |saturation was 90%, sarah saturation was 84% , and patient sdate | | |33.3% of time (180 minutes )below 90%. The study was technically | | |adequate study. | | | | | | | | |Recommendations: | | | | | |Ideally, we should perform a separate CPAP titration study | | |because the patient is on nocturnal supplemental oxygen | | |currently. However, since the hypoxemia appears to be primarily | | |due to obstructive sleep apnea, the alternative option would be | | |starting a trial of auto-CPAP at 5-20 cm H2O followed by an | | |overnight oximetry. | | | | | | | | | | | |Tiesha Pérez MD | | | | | |Portions of this chart may have been created with Perzo voice | | |recognition software. Occasional wrong-word or sound-alike | | |substitutions may have occurred due to the inherent limitations | | |of voice recognition software. Please read the chart carefully | | |and recognize, using context, where these substitutions have | | |occurred. | | + + + + + | Procedure Note | + + | Tiesha Pérez MD - 04/04/2017 1:03 PM [facility] | | [place], [place] [address], Multiparameter, Sleep | | Apnea Test for Patrice Interiano performed on April 02, 2017.Identifying Information: | | Patrice Interiano is a 61 y.o. male who is referred for unattended, multi-parameter, sleep | | apnea test because of probable Obstructive Sleep Apnea. he has a history of status post | | DVT and pulmonary embolism in November 2016, GERD and h/o of hiatal hernia, hypertension, | | lumbar radiculopathy status post lumbar fusion in October 2016, anxiety, essential | | tremor, and restless legs syndrome presenting with nocturnal hypoxemia for evaluation of | | obstructive sleep apnea. He had an overnight oximetry on room air on December 13, 2016. | | It showed mean SPO2 at 86%, sarah SPO2 was 68%, and he had spent 407 minutes <= 88%. | | Started on oxygen 1.5 l/m at night. BMI: 35.7Technical Information: The study was | | performed on April 02, 2017 using the [employer] equipment with Polysmith | | Version 9 Software. The study was hand scored and hand analyzed. The following | | physiologic parameters were monitored: snoring, body position, oxygen saturation, heart | | rate, nasal airflow (PTAF), oral airflow (thermister) and thoracic and abdominal effort | | (RIP belts). EEG was not monitored and thus sleep staging was not performed. A sleep | | efficiency of 100% was assumed for the purposes of calculating indices; this assumption | | can result in a significant underestimation of disease severity. Because EEG was not | | monitored, Respiratory Effort Related Arousals could not be enumerated; this can also | | result in underestimation of disease severity. The sensitivity for Obstructive Sleep | | Apnea of this type of study is high but the specificity is low.Definitions (The AASM | | Manual for the Scoring of Sleep and Associated Events, Version 2.3; 2016): Apnea: There | | is a drop in the peak signal excursion by 90% or greater of pre-event baseline using an | | oronasal thermal sensor, or an alternative apnea sensor and the duration of the 90% or | | greater drop in sensor signal is greater than or equal to 10 seconds. Obstructive | | Apnea: Event associated with continued or increased inspiratory effort throughout the | | entire period of absent airflow. Central Apnea: Event associated with absent | | inspiratory effort throughout the entire period of absent airflow. Because EEG is not | | monitored, Central Apneas cannot be scored with any degree of reliability on this type | | of sleep study. Mixed Apnea: Event associated with absent inspiratory effort in the | | initial portion of the event followed by resumption of inspiratory effort during the | | second portion of the event. Because EEG is not monitored, mixed apneas are not reliably | | scored on this type of study. Hypopnea: The peak signal excursions drop by 30% or more | | of pre-event baseline using nasal pressure (diagnostic study), PAP device flow | | (titration study), or an alternative hypopnea sensor (diagnostic study). The duration of | | the 30% or greater drop in signal excursion must last for 10 seconds or longer. The | | event is associated with a 3% or greater oxygen desaturation from pre-event baseline or | | the event is associated with an arousal. Respiratory Event Related Arousal: Because EEG | | is not recorded, Respiratory Event Related Arousal's cannot be enumerated.Results: Data | | collection commenced at 20:00 on April 02, 2017 and data collection terminated at | | 05:07 on April 03, 2017. During the 546.5 minutes of index study time there were 7 | | obstructive apneas, 1 central apneas, 0 mixed apneas and 261 hypopneas. The CATARINO was | | 29.5 which is severely elevated. Relative time in supine position was 9.6%. The | | events were not worsened in the supine position with CATARINO of 28.6. Non-supine CATARINO was | | 29.6.Mean oxygen oxygen saturation was 90%, sarah saturation was 84% , and patient sdate | | 33.3% of time (180 minutes )below 90%. 3% Oxygen desaturation index was 34.8 and | | Severely elevated. Average heart rate was 54 bpm. Interpretation: This home sleep apnea | | testing (HSAT) showed moderate to severe obstructive sleep apnea. Mean oxygen oxygen | | saturation was 90%, sarah saturation was 84% , and patient sdate 33.3% of time (180 | | minutes )below 90%. The study was technically adequate study.Recommendations: Ideally, | | we should perform a separate CPAP titration study because the patient is on nocturnal | | supplemental oxygen currently. However, since the hypoxemia appears to be primarily due | | to obstructive sleep apnea, the alternative option would be starting a trial of | | auto-CPAP at 5-20 cm H2O followed by an overnight oximetry.Tiesha Pérez, MDPortions of | | this chart may have been created with Perzo voice recognition software. Occasional | | wrong-word or | | | | sound-alike | | substitutions may have occurred due to the inherent limitations of voice recognition | | software. Please read the chart carefully and recognize, using context, where these | | substitutions have occurred. | + + documented in this encounter Visit Diagnoses + + | Diagnosis | + + | DICKSON (obstructive sleep apnea) Obstructive sleep apnea (adult) (pediatric) | + + documented in this encounter"
--- OUTSIDE RECORDS SUMMARY | ~2019-11-12 | XMS | Encounter Summary ---
Demographics + + + | Address | [address] | | | [place] [address] | + + + | Home Phone [...] Team Providers + +------+ + | Care Cylinder Loader Name | Role | Phone | + +------+ + | Santi uDmont MD | PCP | | + +------+ [...] | | | | | | | NV TOTAL | | | | | | [...] | +--------+ + + + + | 04/19/ | Hospital | [facility] | Tay Chand MD | Status post total | | 2018 - | Encounter | [facility] | [address] | replacement of left | | | | [address] | [place] | hip (Primary Dx) | | 06/09/ | | [place] [address] | [id number] | | | 2017 | | [phone] | [phone] | | | | | | | [...] + + + | Blood Pressure | 138/82 | 06/09/2017 3:40 PM | | | | | PDT | | + + + + + | Pulse | 71 | 06/09/2017 3:40 PM | | | | | PDT | | + + + + + | Temperature | 37.5 C (99.5 F) | 06/09/2017 3:40 PM | | | | | PDT | | + + + + + | Respiratory Rate | 18 | 06/09/2017 3:40 PM | | | | | PDT | | + + + + + | Oxygen Saturation | 96% | 06/09/2017 3:40 PM | | | | | PDT [...] at 9:15 am for xrays at the [facility]. Discharge Instructions for Hip Replacement Surgery You [...] the appointment date and time by calling [phone] When to Seek Medical Attention Call 911 [...] mg of acetaminophen (Tylenol) per day. Hydrocodone-acetaminophen ([place] ) and Oxycodone-acetaminophen (Percocet) have 325 mg [...] red in back of calf PE or RI: sudden chest pain or trouble breathing Stroke: [...] help t he stool stay soft and xzej-zw-szow. Remember to drink plenty of fluids and fiber-containin g foods. If you do not have a bowel movement within two days of returning home, add milk of magnesi a 30 mL once each night and/or Miralax one capful (17 grams) dissolved in half a cup of wate r once daily for 3 days. These are available [id number] at any drugstore. If you are still [...] - - - 85 16 95 % 06/07/17 2130 - - - 86 16 96 % [...] Electronically signed by: Tay Chand, 06/07/2017 7:30 [facility] by Tay Chand MD at [...] External rotation is 50 without significant pain. Marquez vasquez walks with a significantly antalgic limp favoring the left leg. Distal examination shows no cyanosis or clubbing. There is trace pretibial edema. There i s a 2+ dorsalis pedis and posterior tibial pulse. There is full strength of ankle extension and flexion. He states normal sensation on the dorsal and plantar surfaces of both feet. Radiographs: Plain films obtained previously at [facility] showed bone-on-chris ne left hip osteoarthritis and [...] OF MAY 11 IS FOR POST-OP DVT NV OPHYLAXIS WITH ELIQUIS Past Medical History History [...] W/ Auto Diff; Status:Canceled; DIAG - EKG 16864; Status:Canceled; MRSA Screen (Rflx); Status:Active; Requested for:11May2017; [...] with nursing staff and be up in [facility] for all meals. [facility] Turning over in bed: no [...] independent or modified independent/no help TOTAL - [facility] : 24 Completed the [facility] Activity Measure for Post Acute Care (AM-PAC) "6 Clicks" [facility] Mobility Inpatient Short Form. This version of the AM-PAC is an assessment tool used to measure a person's level of disability in performing basic mobility tasks. This patient's score indicates a performance of 0.00% impairment in the functioning of basic mobility. Raw Score - Functional Limitation % (for [facility]) - "Severity Modifier" CN 6 - 100.00 [...] to decreased flexibility and pain Level of [place]: modified independent Assistive Device: 2 wheeled walker (FWW) Distance (feet): 500 feet Gait Pattern Analysis: 2-point gait Gait Deviations: step length decreased, stride length decreased Safety Issues: weight-shifting ability decreased Stairs Mod I with handrails Number of Stairs: 4 Handrail Location: both sides Level of [place]: modified independent Assistive Device: 2 rails Technique Used: step to step (ascending), step to step (descending) Maintain Weight Bearing Status: able to maintain weight bearing status Safety Issues: weight-shifting ability decreased Impairments: decreased flexibility, pain Transfers Mod I , no physical assist needed. 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 PT Goal Review Date Most Recent Value STG Review Date 06/10/17 at 06/07/2017 1600 Vmypzk-Swh-Vtbohy Goal Most Recent Value STG Status met at 06/09/2017 1715 STG [place] Level modified independent at 06/07/2017 1600 STG Assistive Device none at 06/07/2017 1600 Ppn-Homed-Gzb Goal Most Recent Value STG Status met at 06/09/2017 1715 STG [place] Level modified independent at 06/07/2017 1600 STG Assistive Device 2 wheeled walker (FWW) at 06/07/2017 1600 Gait Goal Most Recent Value STG Status met at 06/09/2017 1715 STG [place] Level modified independent at 06/07/2017 1600 STG Assistive Device 2 wheeled walker (FWW) at 06/07/2017 1600 STG Distance (feet) 100 feet at 06/07/2017 1600 Stair Goal Most Recent Value STG Status met at 06/09/2017 1715 STG [place] Level modified independent at 06/07/2017 1600 STG [...] PT, 06/09/2017 17:16 lan of Care - [facility] octavio, Joby Choudhary OT - 06/09/2017 3:00 PM PDTFormatting of [...] Supervision today. 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 Grooming, Level of [place]: supervised Assistive Device: none Bed Mobility Assistive Device: bed rails Scoot/Bridge, Level of [place]: modified independent Supine to Sit, Level of [place]: modified independent Sit to Supine, Level of [place]: stand by assist, verbal cues required Safety [...] transferring out of it. Sit-Stand, Level of [place]: supervised Stand-Sit, Level of [place]: supervised Suv-Ngcsj-Opg, Assistive Device: 2 wheeled walker (FWW) Maintain Weight Bearing Status: cues to maintain weight bearing status Safety Issues: weight-shifting ability decreased Impairments: decreased flexibility, pain OT Goal Review Date Most Recent Value STG Review Date 06/12/17 at 06/08/2017 0844 Grooming Goal Most Recent Value STG Status met at 06/09/2017 1456 STG [place] Level supervised at 06/08/2017 0844 STG Position supported standing at 06/08/2017 0844 LB Dressing Goal Most Recent Value STG Status new at 06/08/2017 0844 STG [place] Level modified independent, set up required at 06/08/2017 0844 STG Adaptive Equipment dressing stick, sock-aid at 06/08/2017 0844 Tub/Shower Transfer Goal Most Recent Value Tub/Shower Type tub/shower combo at 06/08/2017 0844 STG Status new at 06/08/2017 0844 STG [place] Level supervised at 06/08/2017 0844 STG Assistive Device 2 wheeled walker (FWW), tub bench at 06/08/2017 0844 Electronically signed by: Joby Plata OT, 06/09/2017 15:19 lan of Care - Charlene Fajardo, [facility] - 06/09/2017 2:46 PM PDTDischarge Planning / Case Management: Follow up visit with patient who is lying in bed, states he has been up with therapies, fee ls he is doing better today. Physicist Nuclear inquired about his front wheeled walker, patient states that does not need a walker. States that the one they have at home "will work just fine". Physicist Nuclear again encouraged him to have his bring [...] stride length and step length. Level of [place]: supervised Assistive Device: 2 wheeled walker (FWW) Distance (feet): 150 feet Gait Pattern Analysis: 3-point gait Gait Deviations: step length decreased, stride length decreased Safety Issues: weight-shifting ability decreased Stairs Six-inch platform step Number of Stairs: 1 6 Handrail Location: none Level of [place]: supervised Assistive Device: 2 wheeled walker (FWW) Technique Used: step to step (ascending), step to step (descending) Maintain Weight Bearing Status: able to maintain weight bearing status Safety Issues: weight-shifting ability decreased Impairments: decreased flexibility, pain Transfers No physical assistance necessary. Bed-Chair, Level of [place]: supervised Chair-Bed, Level of [place]: supervised Yfc-Rrvlq-Rzq, Assistive Device: 2 wheeled walker (FWW) Sit-Stand, Level of [place]: supervised Stand-Sit, Level of [place]: supervised Zlx-Tnsfj-Hdn, Assistive Device: 2 wheeled walker (FWW) Maintain Weight Bearing Status: able to maintain weight bearing status Safety Issues: weight-shifting ability decreased Impairments: decreased flexibility, pain Bed Mobility Instructed patient on assisting surgical leg with towel or sheet. Patient able to demonstr ate independence with lifting surgical leg back into bed using the leg mine equipment design engineer technique. Assistive Device: bed rails Scoot/Bridge, Level of [place]: modified independent Supine to Sit, Level of [place]: modified independent Sit to Supine, Level of [place]: stand by assist, verbal cues required Safety Issues: decreased use of legs for bridging/pushing Impairments: decreased flexibility, pain Balance Sitting Balance: Static: good balance Sitting Balance: Dynamic: good balance Standing Balance: Static: fair balance Standing Balance: Dynamic: fair balance PT Goal Review Date Most Recent Value STG Review Date 06/10/17 at 06/07/2017 1600 Ffizkw-Rvs-Dpizho Goal Most Recent Value STG Status progressing at 06/09/2017 1033 STG [place] Level modified independent at 06/07/2017 1600 STG Assistive Device none at 06/07/2017 1600 Wkk-Swcfy-Kma Goal Most Recent Value STG Status progressing at 06/09/2017 1033 STG [place] Level modified independent at 06/07/2017 1600 STG Assistive Device 2 wheeled walker (FWW) at 06/07/2017 1600 Gait Goal Most Recent Value STG Status progressing at 06/09/2017 1033 STG [place] Level modified independent at 06/07/2017 1600 STG Assistive Device 2 wheeled walker (FWW) at 06/07/2017 1600 STG Distance (feet) 100 feet at 06/07/2017 1600 Stair Goal Most Recent Value STG Status progressing at 06/09/2017 1033 STG [place] Level modified independent at 06/07/2017 1600 STG [...] PT, 06/09/2017 12:57 lan of Care - [facility] Yeni Tejada RN - 06/09/2017 5:28 AM [...] intact to BLE. lan of Care - Chaim, Ramsey Conklin, PT - 06/08/2017 5:34 PM PDT Problem: [...] pagan for specific details regarding functional levels. [facility] Turning over in bed: no [...] CGA, SBA, Supervision/a little help TOTAL - [facility] : 20 Completed the [facility] Activity Measure for Post Acute Care (AM-PAC) "6 Clicks" [facility] Mobility Inpatient Short Form. This version of [...] to pain and decreased flexibility. Level of [place]: stand by assist Assistive Device: 2 wheeled walker (FWW) Distance (feet): 100 feet x 2 Gait Pattern Analysis: 3-point gait Gait Deviations: step length decreased, stride length decreased Safety Issues: weight-shifting ability decreased Transfers No physical assistance necessary. Sit-Stand, Level of [place]: stand by assist Stand-Sit, Level of [place]: stand by assist Xwt-Fbfib-Icq, Assistive Device: 2 wheeled walker (FWW) Toilet, Level of [place]: minimal assist (75% patient effort) Toilet, Assistive [...] Assistive Device: bed rails Scoot/Bridge, Level of [place]: supervised, verbal cues required Supine to Sit, Level of [place]: supervised, verbal cues required Sit to Supine, Level of [place]: not tested Safety Issues: decreased use of [...] STG Review Date 06/10/17 at 06/07/2017 1600 Ipwgrg-Yuz-Hdhcqo Goal Most Recent Value STG Status progressing at 06/08/2017 1729 STG [place] Level modified independent at 06/07/2017 1600 STG Assistive Device none at 06/07/2017 1600 Rqg-Zkrek-Kop Goal Most Recent Value STG Status progressing at 06/08/2017 1729 STG [place] Level modified independent at 06/07/2017 1600 STG Assistive Device 2 wheeled walker (FWW) at 06/07/2017 1600 Gait Goal Most Recent Value STG Status progressing at 06/08/2017 1253 STG [place] Level modified independent at 06/07/2017 1600 STG Assistive Device 2 wheeled walker (FWW) at 06/07/2017 1600 STG Distance (feet) 100 feet at 06/07/2017 1600 Stair Goal Most Recent Value STG Status progressing at 06/08/2017 1729 STG [place] Level modified independent at 06/07/2017 1600 STG [...] pleas ant and engaging. He lives in [place] in their single level home Pt states he has been using a 4 wheeled walker at home ( "brake is broken"). He has borrowed a front wheeled walker. Physicist Nuclear asked his to bring this walker in for PT to assess ( height, condition). Physicist Nuclear discussed Rx for a walker, offered to send in prescription to have a new walker agatha guerrier. Pt and his request that a new walker not be ordered at this time as they feel th eir borrowed walker is adequate. Preferred pharmacy is [facility] in [place] Primary care provider is Santi Dumont Pt has a CPAP at home ( [facility]). Plan: Home with spouse Physicist Nuclear to check with patient regarding walker. Spouse to bring in tomorrow Electronically signed by: ISAIAH Wheeler 06/08/2017 16:20 nesthesia Pain Management - Temo Ramires MD - 06/08/2017 2:53 PM PDTPro[facility]ent[facility] Neuraxial Opioid Follow-Up Pain [...] of SAB narcotics. lan of Care - Ramsey Duvall, PT - 06/08/2017 11:00 AM PDT Problem: [...] for no rmalizing gait pattern Level of [place]: contact guard assist Assistive Device: 2 wheeled walker (FWW) Distance (feet): 50 feet 2 Gait Pattern Analysis: 3-point gait Gait Deviations: step length decreased, stride length decreased Safety Issues: weight-shifting ability decreased Stairs Six-inch platform step Number of Stairs: 1 x 3 Handrail Location: none Level of [place]: contact guard assist, verbal cues required Assistive Device: 2 wheeled walker (FWW) Technique Used: step to step (ascending), step to step (descending) Maintain Weight Bearing Status: able to maintain weight bearing status Safety Issues: weight-shifting ability decreased Impairments: decreased flexibility, pain Transfers No physical assistance necessary. Bed-Chair, Level of [place]: stand by assist Chair-Bed, Level of [place]: not tested Hlv-Ldxks-Mjo, Assistive Device: 2 wheeled walker (FWW) Sit-Stand, Level of [place]: stand by assist Stand-Sit, Level of [place]: stand by assist Tyn-Szjpp-Bwq, Assistive Device: 2 wheeled walker (FWW) Toilet, Level of [place]: minimal assist (75% patient effort) Toilet, Assistive [...] Assistive Device: bed rails Scoot/Bridge, Level of [place]: supervised, verbal cues required Supine to Sit, Level of [place]: supervised, verbal cues required Sit to Supine, Level of [place]: not tested Safety Issues: decreased use of legs for bridging/pushing Impairments: decreased flexibility, pain Balance Sitting Balance: Static: good balance Sitting Balance: Dynamic: good balance Standing Balance: Static: fair balance Standing Balance: Dynamic: fair balance PT Goal Review Date Most Recent Value STG Review Date 06/10/17 at 06/07/2017 1600 Cnhykm-Nyk-Atcnyt Goal Most Recent Value STG Status progressing at 06/08/2017 1253 STG [place] Level modified independent at 06/07/2017 1600 STG Assistive Device none at 06/07/2017 1600 Ycv-Jbacw-Zgh Goal Most Recent Value STG Status progressing at 06/08/2017 1253 STG [place] Level modified independent at 06/07/2017 1600 STG Assistive Device 2 wheeled walker (FWW) at 06/07/2017 1600 Gait Goal Most Recent Value STG Status progressing at 06/08/2017 1253 STG [place] Level modified independent at 06/07/2017 1600 STG Assistive Device 2 wheeled walker (FWW) at 06/07/2017 1600 STG Distance (feet) 100 feet at 06/07/2017 1600 Stair Goal Most Recent Value STG Status progressing at 06/08/2017 1253 STG [place] Level modified independent at 06/07/2017 1600 STG [...] 06/08/2017 12:55 lan of Care - Keke Gifford, OT - 06/08/2017 9:20 AM PDT Problem: [...] ADLs 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 He reported that he uses salad tongs for toilet hygiene as he cannot reach around to wipe. Pt required assistance for toilet hygiene Toileting, Level of [place]: maximal assist (25% patient effort) Assistive Device: [...] Assistive Device: bed rails Scoot/Bridge, Level of [place]: contact guard assist, verbal cues required Supine to Sit, Level of [place]: contact guard assist, verbal cues required Sit to Supine, Level of [place]: minimal assist (75% patient effort), verbal cues requ ired Safety Issues: decreased use of legs for bridging/pushing Impairments: decreased flexibility, impaired balance, ROM decreased, pain Transfers Sit-Stand, Level of [place]: contact guard assist, verbal cues required Stand-Sit, Level of [place]: verbal cues required, contact guard assist Nbp-Uhjpv-Xmn, Assistive Device: 2 wheeled walker (FWW) Toilet, Level of [place]: contact guard assist, verbal cues required Toilet, [...] STG Status new at 06/08/2017 0844 STG [place] Level supervised at 06/08/2017 0844 STG Position supported standing at 06/08/2017 0844 LB Dressing Goal Most Recent Value STG Status new at 06/08/2017 0844 STG [place] Level modified independent, set up required at 06/08/2017 0844 STG Adaptive Equipment dressing stick, sock-aid at 06/08/2017 0844 Tub/Shower Transfer Goal Most Recent Value Tub/Shower Type tub/shower combo at 06/08/2017 0844 STG Status new at 06/08/2017 0844 STG [place] Level supervised at 06/08/2017 0844 STG Assistive Device 2 wheeled walker (FWW), tub bench at 06/08/2017 0844 Electronically signed by: Keke Bermeo OT, 06/08/2017 9:37 [facility] - Melba Prado, PRODUCTION SUPERVISOR - 06/08/2017 4:37 AM PDTProblem: Patient Care [...] while awake. When placed on own autocpap [id number], no supplementa l oxygen required. Continuous oximeter [...] with good uo. lan of Care - HarrisGrazyna RN - 06/07/2017 9:10 PM PDTProblem: Patient [...] falls this shift. lan of Care - Ramsey Rucker, PT - 06/07/2017 4:00 PM PDT Problem: [...] for imbalance, pain, decreased flexibility. Level of [place]: minimal assist (75% patient effort), verbal cues required Assistive Device: 2 wheeled walker (FWW) Distance (feet): 2 steps forward and backwards Gait Pattern Analysis: 3-point gait Gait Deviations: step length decreased, stride length decreased Safety Issues: weight-shifting ability decreased Transfers Minimal physical assistance for mild imbalance, pain, decreased flexibility. Patient with good initial balance on stand. Sit-Stand, Level of [place]: minimal assist (75% patient effort), verbal cues required Stand-Sit, Level of [place]: minimal assist (75% patient effort), verbal cues required Heh-Yovsz-Tjf, Assistive Device: 2 wheeled walker (FWW) Toilet, Level of [place]: minimal assist (75% patient effort) Toilet, Assistive [...] bed rails, HOB elevated Scoot/Bridge, Level of [place]: contact guard assist, verbal cues required Supine to Sit, Level of [place]: contact guard assist, verbal cues required Sit to Supine, Level of [place]: not tested Safety Issues: decreased use of [...] STG Review Date 06/10/17 at 06/07/2017 1600 Bqvtfk-Orr-Obbomc Goal Most Recent Value STG Status new at 06/07/2017 1600 STG [place] Level modified independent at 06/07/2017 1600 STG Assistive Device none at 06/07/2017 1600 Ttu-Cmmxl-Kkl Goal Most Recent Value STG Status new at 06/07/2017 1600 STG [place] Level modified independent at 06/07/2017 1600 STG Assistive Device 2 wheeled walker (FWW) at 06/07/2017 1600 Gait Goal Most Recent Value STG Status new at 06/07/2017 1600 STG [place] Level modified independent at 06/07/2017 1600 STG Assistive Device 2 wheeled walker (FWW) at 06/07/2017 1600 STG Distance (feet) 100 feet at 06/07/2017 1600 Stair Goal Most Recent Value STG Status new at 06/07/2017 1600 STG [place] Level modified independent at 06/07/2017 1600 STG Assistive Device 1 rail at 06/07/2017 1600 STG Number of Stairs 4 at 06/07/2017 1600 Additional Goal #1 PT Most Recent Value STG Status new at 06/07/2017 1600 STG Patient and spouse will be independent with posterior total hip arthroplasty precautio ns. at 06/07/2017 1600 Electronically signed by: Ramsey Rucker, PT, 06/07/2017 18:34 p Robin - Tay Chand MD - 06/07/2017 10:03 [...] present and scrubbed for the entire procedure. Director Of Coding: Olinda Nicole PA-C. Note the wheelchair van operator first responder was necessary in performing t his procedure. [...] | | | Needs | | | Mahendra | | | [...] + | [facility] | [address] | [place] | [phone] | | [facility] | | [address] | | | - LABORATORY | | [...] | | | | mmol/L | [facility] | | | | [...] | | | | mg/dL | [facility] | | | | | | MEDICAL | | | | | | CENTER - | | | | | | LABORATORY | | + + + + + + | eGFR, | >60Comment: GLOMERULAR | >=60 | [facility] | | | non- | FILTRATION | mL/min/1.73m2 | [facility] | | | [place] | RATE,ESTIMATED | | MEDICAL | | | | mL/min/1.04m5Nhbe than | | CENTER - | | [...] | | | | | mg/dL | [facility] | | | | | | MEDICAL | | | | | | CENTER - | | | | | | LABORATORY | | + + + + + + | BUN/Creatin | 10.5 | | [facility] | | | ine Ratio | | | [facility] | | | | | [...] + + + + + | [facility] | [address] | [place] | [phone] | | [facility] | | [address] | | | - LABORATORY | | [...] | + + + + + | [facility] | [address] | [place] | [phone] | | [facility] | | [address] | | | - LABORATORY | | [...] Note | + + | Francois Singh In - 06/07/2017 9:46 AM PDT CLINICAL [...] Diagnosis | + + | Status post total replacement of left hip - Primary | + + | Obesity (BMI 35.0-39.9 without comorbidity) Obesity, unspecified | + + documented in this [...] | | | DAILY, First dose on [facility] 06/07/17 | | PM PDT | | | [...] | | +---+---+ + +-------+ +--------+---+---+ | acetaminophen (TYLENOL) tablet | Given | 06/08/19 | 975 mg | | | | 975 mg 975 mg (rounded from | | 18 6:53 | | | | | 1,000 mg), Oral, ONCE, Ketty | | AM PDT | | | | | 06/07/17 at 0630, For 1 dose, | | | | | | | Pre-op | | | | | | [...] +------+---+---+ +---+---+ | | | +---+---+ + +---------+ +-----+ +---+ | ceFAZolin (ANCEF, KEFZOL) 100 | New Bag | 06/09/19 | 2 g | 40 mL/hr | | | mg/mL IV syringe 2 g 2 g, | | 18 12:43 | | | | | Intravenous, Administer over 30 | | AM PDT | | | | | Minutes, EVERY 8 HOURS INTERVAL, | | | | | | | First dose on Ketty 06/07/17 at | | | | | | | 1600, For 2 doses, Start 8 hours | | | | | | | after previous dose. Last dose | | | | | | | to be given within 24 hours of | | | | | | | surgery end time., Post-op/Phase | | | | | | | II, Indications: Surgical | | | | | | | Prophylaxis | | | | | | + +---------+ +-----+ +---+ +---------+ +-----+ +---+ | New Bag | 06/08/19 | 2 g | 40 mL/hr | | | | 18 5:52 | | | | | | PM PDT | | | | +---------+ +-----+ +---+ +---+---+ | | | +---+---+ + +-------+ +--------+---+---+ | celecoxib (CELEBREX) capsule | Given | 06/08/19 | 200 mg | | | | 200 mg 200 mg, Oral, 2 TIMES | | 18 6:55 | | | | | DAILY, First dose on Sun06/07/17 | | AM PDT | | | | | at 0900, Doses > 200 mg should be | | | | | | | given with meals., Pre-op | | | | | | [...] HOURS PRN, Itching, | | | Starting [facility] 06/07/17 at 1233, | | | Oral route is preferred., | | | Post-op/Phase II | | + +---+ | | | + +---+ | diphenhydrAMINE (BENADRYL) | | | injection 12.5 mg 12.5 mg, | | | Intravenous, EVERY 4 HOURS PRN, | | | Itching, Starting Ketty 06/07/17 at | | | 1233, Oral route is preferred., | | | Post-op/Phase II | | + +---+ | | | + +---+ | diphenhydrAMINE (BENADRYL) | | | tablet 25 mg 25 mg, Oral, EVERY | | | 4 HOURS PRN, Itching, Starting | | | [facility] 06/07/17 at 1233, Oral route | | | is preferred., Post-op/Phase II | | + +---+ | | | + +---+ + +-------+ +-------+---+---+ | furosemide (LASIX) tablet 40 mg | Given | 06/09/19 | 40 mg | | | | 40 mg, Oral, DAILY, First dose | | 18 9:26 | | | | | on [facility] 06/07/17 at 1300, | | AM [...] +---+---+---+ +---+---+ | | | +---+---+ + +---------+ +---+-------+---+ | lactated ringers (LR) infusion | New Bag | 06/08/19 | | 100 | | | at 100 mL/hr, Intravenous, FIXED | | 18 9:02 | | mL/hr | | | VOLUME (see admin instruction), | | PM PDT | | | | | Starting [facility] 06/07/17 at 1300, For | | | | | | | 20 hours, 2 liters then | | | | | | | discontinue, Post-op/Phase II | | | | | | + +---------+ +---+-------+---+ +---------+ +---+-------+---+ | New Bag | 06/08/19 | | 100 | | | | 18 12:51 | | mL/hr | | | | PM PDT | | | | +---------+ +---+-------+---+ +---+---+ | | | +---+---+ + +-------+ [...] | | | | | 06/08/17 at 0730, | | | | [...] | | | DAILY, First dose on [facility] 06/07/17 | | AM PDT | [...] | | | | First dose on [facility] 06/07/17 at | | AM PDT | | | | | 1300, Post-op/Phase II | | | | | | + +-------+ +--------+---+---+ +-------+ +--------+---+---+ | Given | 06/08/19 | 0.5 mg | | | | | 18 2:32 | | | | | | PM PDT | | | | +-------+ +--------+---+---+ +---+---+ | | | +---+---+ + +-------+ +-------+---+---+ | pregabalin (LYRICA) capsule 75 | Given | 06/08/19 | 75 mg | | | | mg 75 mg, Oral, 2 TIMES DAILY, | | 18 6:55 | | | | | First dose on Sun06/07/17 at | | AM PDT | | | | | 0900, Pre-op | | | | | | [...] 5:35 | | | | | on Ketty 06/07/17 at 1800, | | PM PDT | [...] AM PDT | | | | | 4/20/18 at 1741 | | | | | | + +-------+ +------+---+---+ +-------+ +------+---+---+ | Given | 06/09/19 | 2 mg | | | | | 18 8:37 | | | | | | PM PDT | | | | +-------+ +------+---+---+ +---+---+ | | | +---+---+ documented in this encounter
--- OUTSIDE RECORDS SUMMARY | ~2019-11-12 | XMS | Encounter Summary ---
Demographics + + + | Address | [address] | | | [place] [address] | + + + | Home Phone | | + + + | Preferred Language | Unknown | + + + | Marital Status | | + + + | Anabaptist Affiliation | Unknown | + + + | Race | White | + + + | Ethnic Group | Not or | + + + Author + + + | Author | [facility] | | | and Brianana | + + + | Organization | [facility] | | [...] Team Providers + +------+ + | Care Notched Blade Loader Name | Role | Phone | + +------+ + | Isaac Miranda MD | PCP | | + +------+ + Reason for Visit + +--------+ + | Reason | Onset | Comments | | | Date | | + +--------+ + | Paperwork | 07/20/ | | | | 2016 | | + +--------+ + Encounter Details +--------+ + + + + | Date | Type | Department | Care Team | Description | +--------+ + + + + | 07/20/ | Telephone | [facility] | Mahendra Luna MD | Paperwork | | 2017 | | NEUROSURGERY [address] | | | | | [address] | [place] [address] | | | | | [place] | [phone] | | | | | [address] | | | | | | [phone] | | | +--------+ + + + [...] this encounter Miscellaneous Notes Telephone Encounter - Alexia Tejeda RN - 07/26/2016 4:49 PM PDTConfirmed with Gely yvette lake she received the faxed paperwork elephone Encounter - Silvana Mead - 07/26/2016 2:57 PM PDTPatient's wif e called in stating that she has still not received the fax for [employer]. She would like to kno w if we can fax it to [employer] today or she will be driving in tomorrow to come potato picker the pap erwork. I explained that Fredy has been with patients all day and that I have not been able to talk with her about the forms. She wanted a promise that she would be called back by the end of clinic. I informed her that I could not guarantee that she would be called back.Elizabeth woods signed by Silvana Mead at 07/26/2016 3:08 PM PDTTelephone Encounter - Silvana Mead - 07/26/2016 11:12 AM PDTPatient's stated that she had received a call from Eddie Martinez that stated the paperwork was done and she would be faxing it to the patient. I am unable to confirm if this was completed or not. Please call Gely back at [phone] with a n update. elephone Enco jamshid - Fredy Navas Medical Assistant - 07/25/2016 4:28 PM PDTFax to [phone] Per patients . Electronically signed by Beatriz Haywood at 017 4:29 PM PDTTelephone Encounter - Fredy Navas Medical Assistant - 07/25/2016 3: 56 PM PDTLeft voicemail advising that we are working on this and will fax when finished. Maribel ctronically signed by Beatriz Haywood at 07/25/2016 4:22 PM PDTTelepho ne Encounter - Silvana Mead - 07/25/2016 1:44 PM PDTPatient's , Gely, called to moreno schumacher up on if the patient's FMLA paperwork has been completed. Please call Gely at . elephone Encounbruce r - Sulema Adames - 07/24/2016 11:27 AM Sagar called for an update on Patrice's Continuing Di sability Claim Form. She said that the best number to reach her is [phone].Electronica hetaly signed by Sulema Adames at 07/24/2016 11:30 AM PDTTelephone Encounter - Sulema Adames T - 0 07/20/2016 10:00 AM Devonalma called, stating that her needs to have a Continuing Disab ility Claim Form signed by Dr. Luna due to an insurance change, and wanted to inform him that she would fax that over. If there are any questions, she can be reached at [phone]. documented in this encounter Plan of Treatment Not on filedocumented as of this encounter Visit Diagnoses Not on filedocumented in this encounter"
--- OUTSIDE RECORDS SUMMARY | ~2019-11-12 | XMS | Encounter Summary ---
Demographics + + + | Address | [address] | | | [place] [address] | + + + | Home Phone | | + + + | Preferred Language | Unknown | + + + | Marital Status | | + + + | Congregation Affiliation | Unknown | + + + | Race | White | + + + | Ethnic Group | Not or | + + + Author + + + | Author | [facility] | | | and [place]ana | + + + | Organization | [facility] | | | [...] Team Providers + +------+ + | Care Kaiwhakahaere Name | Role | Phone | + [...] Description | +--------+--------+ + + + | 07/16/ | Refill | [facility] | Santi Dumont MD | Medication Refill | | 2019 | | MEDICINE [address] [place] [address] | [address] [place] [address] | | | | | [address] [place] [place], | [place], [place] | | | | | [place] [address] | [id number] | | | | | [phone] | | | +--------+--------+ + + + [...]
--- OUTSIDE RECORDS SUMMARY | ~2019-11-12 | XMS | Encounter Summary ---
Demographics + + + | Address | [address] | | | [place] [address] | + + + | Home Phone | | + + + | Preferred Language | Unknown | + + + | Marital Status | | + + + | Jain Affiliation | Unknown | + + + | Race | White | + + + | Ethnic Group | Not or | + + + Author + + + | Author | [facility] | | | and [place] | + + + | Organization | [facility] | | | [...] Team Providers + +------+ + | Care Material Analyst Name | Role | Phone | + +------+ + | Santi Dumont MD | PCP | | + +------+ + Reason for Visit +--------+--------+ + | Reason | Onset | Comments | | | Date | | +--------+--------+ + | Hernia | 02/24/ | | | | 2020 | | +--------+--------+ + Encounter Details +--------+ + + + + | Date | Type | Department | Care Team | Description | +--------+ + + + + | 02/24/ | Telephone | [facility] | Santi Dumont MD | Hernia | | 2020 | | MEDICINE [address] [place] [address] | [address] [place] [address] | | | | | [address] [facility], | [place], [place] | | | | | [place] [address] | [address] | | | | | [phone] | | | +--------+ + + + [...] Telephone Encounter - Santi Dumont MD - 02/24/2019 6:49 PM PSTReport noted. Pilara lly signed by Santi Dumont MD at 02/24/2019 6:49 PM PSTTelephone Encounter - Funmi Roper RN - 02/24/2019 4:21 PM PSTPatient called back. Has pain right groin for a few weeks. Not swollen or bulging. Feels strained when his stands up. He wants this looked a t. Appt scheduled 03/[address] Dumont. Advised Urgent Care eval sooner for worsening pain or symptoms. He is in agreement. Electronically signed by Magdalene Roper RN at 07/2019 4:28 PM PSTTelephone Encounter - Magdalene Roper RN - 02/24/2019 2:50 PM PST Attempted to reach patient. Left message asking that they call back to Dr. Dumont's nurse. elephone Margo Suarez - 02/24/2019 1:12 PM PSTDextera called requesting a call back from the nurse about Patrice, they think he might have a hernia. Please advise. She can be reached [phone]. documented in this encounter Plan of Treatment Not on filedocumented as of this encounter Visit Diagnoses Not on filedocumented in this encounter"
--- OUTSIDE RECORDS SUMMARY | ~2019-11-12 | XMS | Encounter Summary ---
Demographics + + + | Address | [address] | | | [place] [address] | + + + | Home Phone | | + + + | Preferred Language | Unknown | + + + | Marital Status | | + + + | Quaker Affiliation | Unknown | + + + | Race | White | + + + | Ethnic Group | Not or | + + + Author + + + | Author | [facility] | | | and [place]ana | + + + | Organization | [facility] | | | and [...] Team Providers + +------+ + | Care Locker Operator Name | Role | Phone | + +------+ + | Santi Dumont MD | PCP | | + +------+ + Reason for Visit + +--------+ + | Reason | Onset | Comments | | | Date | | + +--------+ + | Patient Education | 06/23/ | | | | 2019 | | + +--------+ + Encounter Details +--------+ + + + + | Date | Type | Department | Care Team | Description | +--------+ + + + + | 08/11/ | Telephone | [facility] | Radha Ricks, | Patient Education | | 2019 | | [facility] SUR[facility] | RN | | | | | [address] | | | | | | [place] [address] | | | | | | [phone] | | | +--------+ + + + [...] this encounter Miscellaneous Notes Telephone Encounter - Radha Ricks RN - 08/12/2019 12:42 PM PDTTotal Joint Replacement Education Reviewed with teach back for patient and morning caregiver ? Pain management tracking/ weaning narcotics; avoiding constipation; use of cold compr ess, elevation and rest. ? Safe mobility help at home; use of assistive devices o Pt. Will bring walker from home on the day of surgery. ? Incision care hand hygiene; dressing/ site care and monitoring ? Clot prevention anticoagulant adherence ? 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 Pt. Reports he also has a daughter in [facility] that can come over and help if needed. elephone Encounter - Radha Ricks RN - 08/12/2019 11:27 AM PDTTotal Joint Replacement Education Reviewed wit h teach back for patient and morning caregiver ? Pain management tracking/ weaning narcotics; avoiding constipation; use of cold compr ess, elevation and rest. ? Safe mobility help at home; use of assistive devices ? Incision care hand hygiene; dressing/ site care and monitoring ? Clot prevention anticoagulant adherence ? Follow-up post-discharge phone calls and surgeon appointments Patient states understanding, no additional questions at this time No answer, left message with number to call my office or office cell. documented in this encounter Plan of Treatment Not on filedocumented as of this encounter Visit Diagnoses Not on filedocumented in this encounter"
--- OUTSIDE RECORDS SUMMARY | ~2019-11-12 | XMS | Encounter Summary ---
Demographics + + + | Address | [address] | | | [place] [address] | + + + | Home Phone | | + + + | Preferred Language | Unknown | + + + | Marital Status | | + + + | Hindu Affiliation | Unknown | + + + | Race | White | + + + | Ethnic Group | Not or | + + + Author + + + | Author | [facility] | | | and Brianana | + + + | Organization | [facility] | | | [...] Team Providers + +------+ + | Care Wool Sampler Name | Role | Phone | + +------+ + | Santi Dumont MD | PCP | | + +------+ + Reason for Visit + + + | Reason | Comments | + + + | Back Pain | | + + + | Leg Pain | left greater than right | + + + Evaluate & Treat (Routine) +--------+--------+ + + + + | Status | Reason | Specialty | Diagnoses / | Referred By | Referred To | | | | | Procedures | Contact | Contact | +--------+--------+ + + + + | Closed | | Neurosurgery | Diagnoses | Ruth, | Mahendra Luna | | | | | Left sided | Isaac Reardon, | MD Kerri [address] | | | | | sciatica | [address] | | | | | Procedures | [place] | [place], [place] | | | | | PA OFFICE | [address] | [address] | | | | | CONSULTATION | [place], | Phone: | | | | | NEW/ESTAB | [place] | [phone] | | | | | PATIENT 61 | [address] | Fax: | | | | | MIN | Phone: | [phone] | | | | | | [phone] | | | | | | | Fax: | | | | | | | [phone] | | +--------+--------+ + + + + Encounter Details +--------+---------+ + + + | Date | Type | Department | Care Team | Description | +--------+---------+ + + + | 07/19/ | Office | [facility] | Mahendra Luna MD | Spondylolisthesis of | | 2017 | Visit | NEUROSURGERY [address] | lumbar region | | | | [address] | [place] [address] | (Primary Dx); Lumbar | | | | [place] | [phone] | radiculopathy; | | | | [address] | | Osteoarthritis of | | | | [phone] | Fabian Escobedo, | spine with | | | | | PA-C [address] | radiculopathy, | | | | | [address] [place] | lumbar region; | | | | | [place] [address] | Lumbar spinal | | | | | [phone] | stenosis | | | | | | | +--------+---------+ + + + [...] + + + | Blood Pressure | 116/79 | 07/19/2016 10:21 AM | | | | | PDT | | + + + + + | Pulse | 57 | 07/19/2016 10:21 AM | | | | | PDT | | + + + + + | Temperature | - | - | | + + + + + | Respiratory Rate | 16 | 07/19/2016 10:21 AM | | | | | PDT | | + + + + + | Oxygen Saturation | - | - | | + + + + + | Inhaled Oxygen | - | - | | | Concentration | | | | + + + + + | Weight | 102.1 kg (225 lb) | 07/19/2016 10:21 AM | | | | | PDT | | + + + + + | Height | 177.8 cm (5' 10") | 07/19/2016 10:21 AM | | | | | PDT | | + + + + + | Body Mass Index | 32.28 | 07/19/2016 10:21 AM | | | | | PDT | | + + + + + documented in this encounter Progress Notes Fabian Escobedo PA - 07/19/2016 10:15 AM PDTFormatting of this note might be different f rom the original. GERALD Denny [address] [facility], [address] [place], [place] [id number] FAX: NEUROSURGERY HISTORY AND PHYSICAL EXAMINATION CHIEF COMPLAINT: Chief Complaint Patient presents with Back Pain Leg Pain left greater than right HISTORY OF PRESENT ILLNESS: The patient is a 61 y.o. male with the complaint of back and b ilateral leg pain symptoms that began 5 months ago. He has had prior back surgery by Dr. Luna in January of 2012. Prior to surgery he had back pain and some leg symptoms. 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 In the middle of December 2015, his symptoms began to start and increase. He states from No vember to today his symptoms have gotten a lot worse. The symptoms have been rapidly worsening. He rates the pain as moderate to severe. The sy mptoms are daily. He describes the pain as sharp, numbing, shooting and aching. He does no t sleep well at night due to not being able to get comfortable. If he has one very active da y he will be unable to do anything for the next 5-6 days. The patient describes leg symptoms that occur on primarily on the left. The leg symptoms a ccount for over half of his symptoms. The leg symptoms are constant, and the symptoms trave l from the back to greater trochanter to inside of calf . The patient also describes hypers ensitivity of the lower extremities, the loss of the ability to walk distances without sitti ng, numbness of the leg, numbness of the foot and weakness of the leg. His left leg is at 7 -8/10 right now. The more active he is the more his pain worsens. He is able to walk less th an 5 minutes. The patient does not report any change in bowel or bladder function recently. His symptoms improve with nothing. His symptoms worsen with standing, sitting and walking. He has tried PT, Chiropractic, Opioids, NSAIDS and Muscle relaxers. The patient is current ly taking nerve medication. These measures are still helping. PAST MEDICAL HISTORY: Past Medical History: Diagnosis Date Allergic rhinitis Arthralgia of knee Patella, Tibia, Fibula Benign prostatic hyperplasia without urinary obstruction Cervical radiculopathy C3-C7 Cervical spondylosis with myelopathy Depression with anxiety GERD (gastroesophageal reflux disease) GI bleed 1999 Hypertension Left sided sciatica Low back pain Lumbar degenerative disc disease Lumbar facet arthropathy MULTILEVEL Lumbar spondylosis Osteoarthritis, generalized Restless leg syndrome Smokeless tobacco use Spondylolisthesis of lumbar region Tremor PAST SURGICAL HISTORY: Past Surgical History: Procedure Laterality Date CERVICAL FUSION 06/2011 Dr. Luna; [facility] COLONOSCOPY 2010 EGD 1999 HERNIA REPAIR 08/03/2010 [facility] Thrombosed hemorrhoid. KNEE ARTHROSCOPY 2014 Dr. Brothers; [place] LUMBAR FUSION 01/2012 Dr. Luna; [facility] TONSILLECTOMY AND ADENOIDECTOMY TYMPANOPLASTY TUBES VASECTOMY CURRENT MEDICATIONS: Current Outpatient Prescriptions Medication Sig Dispense Refill acetaminophen ([facility] 8 HOUR PAIN RELIEF) 650 MG CR tablet Take by mouth. acetaminophen-codeine (TYLENOL #3) 300-30 mg per tablet as needed. albuterol (PROAIR HFA) 90 mcg/puff inhaler Inhale 2 puffs into the lungs every 6 hours as needed for Wheezing. gabapentin (NEURONTIN) 300 mg capsule Take 600 mg by mouth 4 times daily. hydroCHLOROthiazide (HYDRODIURIL) 12.5 MG tablet Daily. 11 lisinopril (PRINIVIL, ZESTRIL) 20 mg tablet Take 40 mg by mouth Daily. loratadine (CLARITIN) 10 mg tablet Take by mouth Daily. METHOCARBAMOL PO Take 375 mg by mouth as needed. nadolol (CORGARD) 80 MG tablet Take 40 mg by mouth Daily. omeprazole (PRILOSEC) 20 mg capsule Take 20 mg by mouth every morning (before breakfast ). pramipexole (MIRAPEX) 0.5 MG tablet Take 0.5 mg by mouth Daily. sertraline (ZOLOFT) 50 mg tablet Take 50 mg by mouth Daily. terazosin (HYTRIN) 5 mg capsule Take 5 mg by mouth Daily. 6 tiZANidine (ZANAFLEX) 4 mg tablet Take 4 mg by mouth every 8 hours as needed. 5 No current facility-administered medications for this visit. ALLERGIES: No Known Allergies SOCIAL HISTORY: The patient reports that he has quit smoking. He has quit using smokeless tobacco. He repo rts that he drinks alcohol. He reports that he does not use drugs. FAMILY HISTORY: Family History Problem Relation Age of Onset Lung cancer Mother Smoker Liver cancer Mother Heart disease Father Arterosclerotic Hypertension Father Diabetes, NIDDM Father Other (see comment) Father Tremor Diabetes Sister Hypertension Sister Other (see comment) Sister Tremor Diabetes Brother Hypertension Brother Hypertension Child No Known Problems Child REVIEW OF SYSTEMS: GENERALLY: No fever, no night sweats, + anemia, no fatigue, no recent profound weight wojciech nges. EYES: No eye problems, + use of corrective lenses, no eye injury, no double vision, no bli ndness. EARS, NOSE, AND THROAT: No changes in taste or smell, + hearing difficulty, no ringing in the ears, no ear drainage, no dizziness, no voice changes, no difficulty swallowing, + signi ficant snoring, no sleep apnea, + sinus problems, no major dental work. NEUROLOGICALLY: Please see the review of systems discussed above in the history of present illness. In addition, the patient has numbness/pain of legs, awake with numbness/pain, wea kness, coordination difficulty, change in walk, pain in back, tremor/shaking. PSYCHIATRIC: No depression, no sleep disorders, + anxiety, no bipolar disorder, no psychot ic episodes. CARDIOVASCULAR: No heart attacks, no heart murmur, no heart fluttering, no chest pain, no ankle swelling. LUNG DISEASE: No shortness of breath, no cough, no tuberculosis, no bloody cough, no asth ma, no emphysema/COPD. GASTROINTESTINAL: No bowel disease, no nausea or vomiting, no rectal bleeding, no constipa tion, no stool incontinence, no liver disease, no gallbladder disease, no abdominal pain, no ulcers. KIDNEY DISEASE: No urinary frequency, no painful or difficult urination, no incontinence. ENDOCRINE: No diabetes, no thyroid disease, no osteopenia or osteoporosis, no breast drain age. SKIN: No breast lumps, no skin changes, no rashes, no itches. HEMATOLOGIC/LYMPHATIC: No enlarged lymph nodes, no easy or unusual bleeding, no personal h istory of cancer. RHEUMATOLOGIC: No joint arthritis, no rheumatoid arthritis. PHYSICAL EXAMINATION: Blood pressure 116/79, pulse 57, resp. rate 16, height 1.778 m (5' 10"), weight 102.1 kg (2 25 lb). Body mass index is 32.28 kg/m. GENERAL: Patrice Interiano is in no acute distress with unlabored respirations. The patient do es not appear uncomfortable throughout the exam today. HEENT: Head: Normocephalic/atraumatic with no areas of recent trauma. Eyes: Normal sclerae without icterus. Ears: No drainage or tenderness. Nasopharnyx: Clear without drainage. Oropharnyx: Clear without erythema. NECK (ANTERIOR): Supple and without palpable masses. CHEST: Clear to ausculation without crackles or wheeze. HEART: Regular rate and rhythm without murmurs. ABDOMEN: Soft, non-tender, non-distended, and without palpable masses. The patient is not o bese. SPINE: There is no tenderness of there cervical or thoracic spine. The lumbar spine shows there is tenderness in the midline of the L2, L3, L4, L5 levels. To palpation, there is no significant myofascial tenderness. There is no significant pain to provacative testing of the SI joint. There is no major deformity noted. EXTREMITIES: No cyanosis, clubbing, or edema. Distal pulses are palpable. NEUROLOGICAL EXAM: MENTAL STATUS: The patient is awake, alert, and oriented. He follows simple and complex commands. His speech is fluent, he comprehends speech well, and he repeats well. He has no apparent deficits with short or extermination inspector memory. CRANIAL NERVES: Fundoscopic Exam: The optic disc is sharp. Normal vascular pattern is visualized II: Acuity is intact. López are full [...] Intrinsics 5 5 Ulnar Intrinsics 5 5 Business Continuity Consultant Strength 5 5 Hip Flexion 5 4+ Hip Extension 5 5 Knee Flexion 5 5 Knee Extension 5 5 Dorsiflexion 5 4 Extensor Hallicus Longus 5 5 Plantarflexion 5 5 SENSORY EXAM: Sensory exam shows no diminished sensation to light touch or pain throughout the upper and lower extremities. REFLEXES: (2 OR 2+ IS NORMAL) REFLEX: RIGHT LEFT BICEPS 2+ 2+ BRACHIORADIALIS 2+ 2+ TRICEPS 2+ 2+ PATELLAR 2+ 2+ ACHILLES 1+ 1+ RILEY'S ABSENT ABSENT PLANTAR DOWNGOING DOWNGOING GAIT: Gait is steady. PERIPHERAL NERVE/MISC: Tinel is negative at the wrists and elbows bilaterally. Phalen is negative. Straight leg raise is negative bilaterally. García's test of the hips is negative bilaterally. TEST AND RADIOGRAPHIC REVIEW: The patient's imaging was reviewed in detail with the patient today during the visit. The MRI from 2017 shows fairly severe spinal stenosis at L3-L4 which is the level above his 2 pr evious fusions from L4-S1. There is moderate stenosis at L1-L2, this is not nearly as bad a s one dissected above. Otherwise, no significant spondylolisthesis is appreciated nor is th ere any foraminal stenosis. Lumbar x-rays show no major instability. Hardware appears stable without any evidence of f ailure. Plain x-ray of lumbar spine shows no evidence of pseudoarthrosis. There is no incr eased evidence of arthrodesis when comparing most recent x-rays to those done in April. The re does appear to be some mild spondylolisthesis at L2-L3. ASSESSMENT: NEUROSURGICAL DIAGNOSES: Encounter Diagnoses Name Primary? Lumbar radiculopathy Spondylolisthesis of lumbar region Yes Osteoarthritis of spine with radiculopathy, lumbar region Lumbar spinal stenosis GENERAL DIAGNOSES: Past Medical History: Diagnosis Date Allergic rhinitis Arthralgia of knee Patella, Tibia, Fibula Benign prostatic hyperplasia without urinary obstruction Cervical radiculopathy C3-C7 Cervical spondylosis with myelopathy Depression with anxiety GERD (gastroesophageal reflux disease) GI bleed 1999 Hypertension Left sided sciatica Low back pain Lumbar degenerative disc disease Lumbar facet arthropathy MULTILEVEL Lumbar spondylosis Osteoarthritis, generalized Restless leg syndrome Smokeless tobacco use Spondylolisthesis of lumbar region Tremor PLAN: Patrice Interiano presented today, and it was a pleasure seeing this patient and assessing his neurologic problems. The patient has regressed significantly since December of 2015. The patient has progressiv e symptoms despite non-operative measures. I had a lengthy discussion with the patient about his options for care including surgical a nd non-surgical options. In discussing the surgical options, we discussed in detail the patient's options for an ext ension of fusion with possible hardware removal/revision at L4-S1. The patient understands that in most instances the recovery from surgery can be lengthy and sometimes difficult. The patient would like to be considered for surgery as discussed and would like us to seek authorization and clearance for the operation. ELECTRONICALLY SIGNED BY: GERALD Denny, 07/19/2016 17:26 I FELIPE Joaquin, am personally taking notes in the presence of the provider. documented in this encounter Plan of Treatment Not on filedocumented as of this encounter Visit Diagnoses + + | Diagnosis | + + | Spondylolisthesis of lumbar region - Primary Acquired spondylolisthesis | + + | Lumbar radiculopathy Thoracic or lumbosacral neuritis or radiculitis, unspecified | + + | Osteoarthritis of spine with radiculopathy, lumbar region | + + | Lumbar spinal stenosis Spinal stenosis, lumbar region, without neurogenic | | claudication | + + documented in this encounter
--- OUTSIDE RECORDS SUMMARY | ~2019-11-12 | XMS | Encounter Summary ---
Demographics + + + | Address | [address] | | | [place] [address] | + + + | Home Phone | | + + + | Preferred Language | Unknown | + + + | Marital Status | | + + + | Uatsdin Affiliation | Unknown | + + + | Race | White | + + + | Ethnic Group | Not or | + + + Author + + + | Author | [facility] | | | and Brianana | + + + | Organization | [facility] | | | [...] Providers + +------+ + | Care Medical Imaging Director Name | Role | Phone | + +------+ + | Santi Dumont MD | PCP | | + +------+ + Reason for Referral Service/Procedure (Routine) +--------+--------+ + + + + | Status | Reason | Specialty | Diagnoses / | Referred By | Referred To | | | | | Procedures | Contact | Contact | +--------+--------+ + + + + | Closed | | DME | Diagnoses | Adin, | | | | | | Obstructive | Lucio | | | | | | sleep apnea | [facility] | | | | | | Procedures | [address] | | | | | | DME: | [facility] | | | | | | Oxygen | [place] | | | | | | Therapy | [id number] | | | | | | | Phone: | | | | | | | [phone] | | | | | | | Fax: | | | | | | | [phone] | | +--------+--------+ + + + + Reason for Visit Auth/Cert +--------+--------+ + [...] | | | osteoarthrit | | [facility] | | | | | is, left hip | | [place] | | | | | Procedures | | [address] | | | | | [place] [facility] | | Phone: | | | | | HIP | | [phone] | | | | | ARTHROPLASTY | | Fax: | | | | | Right | | [phone] | | | | | total hip | | | | | | | arthroplasty | | | +--------+--------+ + + + + Encounter Details +--------+ + + + + | Date | Type | Department | Care Team | Description | +--------+ + + + + | 08/12/ | Hospital | [facility] | Tay Chand MD | Status post total | | 2019 - | Encounter | [facility] | [address] | hip replacement, | | | | [address] [place] | [place] | right (Primary Dx); | | 08/13/ | | [place] [id number] | [phone] | Obstructive sleep | | 2020 | | [phone] | [phone] | apnea with nocturnal | | | | | | hypoxemia | +--------+ + + + + Social [...] + + + documented in this encounter Functional Status + + + [...] + + documented as of this encounter Discharge Summaries Lucio Oakley PA-C - 08/14/2019 8:11 AM PDTFormatting of this note might be differ ent from the original. TOTAL HIP ARTHROPLASTY DISCHARGE SUMMARY ADMISSION DATE: 08/13/2019 DISCHARGE DATE: 08/14/2019 ADMITTING DIAGNOSIS: Right hip degenerative joint disease. DISCHARGE DIAGNOSIS: Right hip degenerative joint disease. MAJOR INTERVENTION: Right total hip arthroplasty. DISCHARGE DISPOSITION: The patient is being discharged to home and will do home-directed ex ercises on an outpatient basis. The patient will practice hip dislocation precautions and wi ll keep the incision clean and dry. Weight-bearing is as tolerated with a walker. A follow-u p appointment has been made in my office in 5-7 days for a wound check, staple removal and r adiographs. DISCHARGE MEDICATIONS The patient will resume his usual medications. In addition,he will take: Eliquis 5mg once daily. Hydrocodone/APAP 10/325 as needed for pain. HOSPITAL COURSE: The patient was admitted and taken to the operating room, at which time, david arias underwent a right total hip arthroplasty without complications. For further details, goran arias see the dictated operative report in the chart. Postoperatively, the patient did well, remaining afebrile, with stable vital signs and with an intact neurovascular examination in his right lower limb. The patient received Ancef preoperatively and for 24 hours postoperatively, and had no sign s or symptoms of infection. The patient had no wound issues and the incision was without maria isabel thema or drainage at the time of his discharge with an Aquacel bandage in place. The patient was started on Eliquis 5 mg twice daily starting the morning after surgery. Th ere was no evidence of thromboembolic disease. Hematocrit stabilized at Lab Results Component Value Date HCT 32.3 (L) 08/14/2019 . There was no need for a blood transfusion. The patient was seen by physical therapy and allowed weightbearing as tolerated with a walk er, progressing very well with his mobility. The patient was ready for discharge home on po stop day number one. A M PDTdocumented in this encounter Discharge Instructions Instructions Lucio Oakley PA-C - 08/12/2019Your post op appointment is scheduled or August 20 at 3:30 pm. Please check in at 3:00 pm for X-[facility] at the [facility] in. Discharge Instructions for Total HIP Replacement MOVING SAFELY The tomas to successful recovery is safe movement and walking! Frequent short walks and e xercises are better than one extended walk or exercise do not overdo it. Maintain a neutral position; avoid twisting over the operated hip. Take several small s teps when turning and keep your shoulders, hips, and feet facing the same direction as much as possible. Avoid extreme movements such as deep bending, squatting (low seating or picking up items off the floor), lunges or large backward steps (extending the operated leg far behind the b jarred), or crossing your legs. Protect yourself from falling! Use a walker for 2 weeks no matter how good you feel. A fter 2 weeks and able to walk without pain, progress to using no walker or a cane. You may not drive until your doctor says its okay and you are no longer taking pain medi cine. SWELLING Use cold therapy on the hip to minimize swelling, at least 3 times a day for the first s everal weeks, especially before sleep. For at least two weeks when resting in bed, keep your ankle elevated at or above heart l evel as much as possible. If you were given compression stockings in the hospital, continue to use as instructed b y your doctor. Have a family member help remove them at night and check your skin: if there 's sign of any breakdown under the tight elastic, discontinue use. SITTING & SLEEPING Use higher chairs with sturdy arms for support when sitting down (your feet should rest flat on the floor). Do not sit with your feet and lower legs flexed for more than 30-45 minutes. This cause s swelling in your operated leg, ankles, and feet. Use pillows when sleeping to protect yourself from crossing your legs or rolling onto th e operated hip. Nap if you are tired, but don't stay in bed all day! Get up and move for about 10 minut es every hour while awake. Gradually increase walking/standing time after 2 weeks. INCISION CARE ? Keep the waterproof bandage on and change it one week (7 days) after surgery, sooner if i t gets wet underneath or is visibly soiled. ? You may gently cleanse around the wound area with soap and water on a soft washcloth when changing the dressing. Do not scrub or directly touch the incision. Avoid creams and loti ons. ? Call your surgeon if there's continued bleeding or seepage from the incision. ? You may shower as long as all bandage edges are sealed. ? Placing your operated hip underwater is not permitted until cleared by your surgeon, bree erwin for 4 weeks (no baths, hot tubs, swimming, etc.) MEDICATIONS Pain medication o Pain, swelling and bruising are normal after joint replacement surgery. o Your pain should be controlled enough that you can get adequate rest and can participate in therapy. o Wean off opioids as soon as possible. Narcotics require a hand-written prescription and are not provided on weekends - if a refill is needed, call before early afternoon. o Avoid alcohol, cannabis, other recreational drugs, benzodiazepines, muscle relaxers, & hy pnotics - these increase your risk of falling o Prevent constipation with frequent walks, plenty of water and fiber, and stool softeners Do not take more than 4,000 mg of acetaminophen (Tylenol) per day or risk liver damage. Many pain medications include Tylenol - keep track! Resume your eliquis medication to help prevent blood clots OTHER SAFETY MEASURES To help prevent pneumonia, continue to use your incentive spirometer (breathing exercise s) until you are up and moving well. SEEK EMERGENCY TREATMENT ? Chest pain ? Shortness of breath ? Injury/ dislocation to the new joint CALL YOUR SURGEON ? Unusual amount of bleeding or drainage from the surgical site ? Redness that gets worse or skin breakdown around the surgical site ? Unusual amount of swelling at the surgical site despite frequent rests, elevation, and co ld therapy ? Either calf feels 'knotty' hard, hot, and hurts with flexion ? Pain not relieved by prescribed medication ? Inability to hold down fluids from persistent nausea or vomiting ? Inability to urinate or frequent urination with burning ? Severe diarrhea ? Fever over 101F, shaking chills ? Frequent nosebleeds or blood in the urine or stools when taking blood thinners ? Pain not relieved by prescribed medication Prescription Drug Facts for Patients having Orthopedic Surgery After surgery you will likely experience some pain and discomfort, treated with a short cou rse of prescription pain medication (opioids). This Prescription Drug Fact Sheet is provided for your safety. KEEP YOURSELF & OTHERS SAFE ? USE: Take your medications only as directed by your doctor. DO NOT share your medications with anyone - sharing your prescriptions with others is illegal and could endanger them. If you are taking benzodiazepines (Xanax, Valium, etc.), consult with your prescriber about ma naging these. Combining opioids with these benzodiazepines can slow or stop breathing. DO NO T mix opioid medications with alcohol or cannabis. Avoid driving or operating heavy machiner y until you are no longer taking opioids. ? STORE: Store your prescriptions securely in their original containers. Keep them out of s ight and out of children's reach, in a locked cabinet or high shelf. ? DISPOSE: Dispose of medications immediately after your pain symptoms have resolved. Unuse d medications should be disposed of at a take-back facility or a medicine drop box. You can search for public disposal locations at https://apps.[facility].[employer].gov/pubdispsearch RISKS OF MISUSE AND OVERDOSE ? When misused, prescription medications may be just as dangerous as illegal drugs. ? Misusing your medications can have serious consequences including physical weakness, poor muscle coordination and falls, nausea, vomiting, and suppressed breathing to the point of d eath. If you have not taken your medications as directed and you experience any of these sym ptoms, go immediately to an emergency room. If you feel that you have taken more medication than what was prescribed, seek immediate medical attention. ? Misusing your medications may also lead to addiction it is extremely important to tommy e your medications only as prescribed. ? As you recover from surgery, your opioid use should steadily decrease. If severe pain per sists or your opioid requirements increase, notify your surgeon. FOR YOUR SAFETY, WE DO NOT ROUTINELY ? Prescribe long-acting opioids except in special circumstances ? Prescribe more than a short course of short-acting opioids ? Refill lost, stolen or destroyed prescriptions ADDITIONAL RESOURCE ? FDA/ National Institution on Drug Abuse: https://www.drugabuse.gov/drugs-abuse/opioids documented in this encounter Medications at Time [...] into | 6.7 g | 3 | 12/18/20 | | | HFA) 90 mcg/puff | the lungs every 6 | | | 19 | | | inhaler | hours as needed for | | | | | | | Wheezing. | | | | | + + + +---------+ + + | ELIQUIS 5 MG | TAKE ONE TABLET BY | 60 | 0 | 03/03/19 | | | tablet | MOUTH TWICE DAILY | tablet | | 20 | | + + + +---------+ + + | | Take 1-2 tablets by | 50 | 0 | 08/14/19 | | | HYDROcodone-acetamin | mouth every 4 hours | tablet | | 20 | | | ophen (NORCO) 10-325 | as needed for Pain. | | | | | | mg per tablet | | | | | | + + + +---------+ + + | | Take 2 tablets by | 180 | 3 | 05/20/19 | | | lisinopril-hydrochlo | mouth Daily. | tablet | | 20 | | | rothiazide | | | | [...] + + | nadolol (CORGARD) | Take one-half tablet | 15 | 5 | 07/28/19 | | | 80 MG tablet | once each day | tablet | | 20 | | + + + +---------+ + + | omeprazole | Take 20 mg by mouth | | 0 | | | | (PRILOSEC) 20 mg | Daily as needed | | | | | | capsule | | | | | | + + + +---------+ + + | terazosin (HYTRIN) | TAKE ONE CAPSULE BY | 30 | 5 | 07/28/19 | | | 5 mg capsule | MOUTH EVERY DAY | capsule | | 20 | | + + + +---------+ + + | tiZANidine | Take 1 tablet by | 30 | 0 | 05/20/19 | | | (ZANAFLEX) 4 mg | mouth every 6 hours | tablet | | 20 | | | tablet | as needed for Muscle | | | | | | | spasms. | | | | | + + + +---------+ + + | traMADol (ULTRAM) | TAKE ONE OR TWO | | 0 | 07/24/19 | | | 50 mg tablet | TABLETS BY MOUTH | | | 20 | | | | EVERY SIX HOURS | | | | | | | NEEDED FOR PAIN | | | | | + + + +---------+ + + | potassium chloride | Take 1 tablet by | 90 | 3 | 08/27/19 | | | 20 mEq CR tablet | mouth Daily. | tablet | | 19 | 0 | + + + +---------+ + + | pramipexole | TAKE ONE TABLET BY | 30 | 0 | 08/01/19 | | | (MIRAPEX) 0.5 MG | MOUTH EVERY DAY | tablet | | 20 | 0 | | tablet | | | | | | + + + +---------+ + + | sertraline | TAKE ONE TABLET BY | 30 | 0 | 08/01/19 | | | (ZOLOFT) 50 mg | MOUTH EVERY DAY | tablet | | 20 | 0 | | tablet | | | | | | + + + +---------+ + + documented as of this encounter Progress Notes Gabriella Rogers, PharmD - 08/14/2019 12:05 PM Dia Stephane Interiano is s/p R NIRAJ and discharg ed home today (08/14/2019.) Taught AVS education to patient. Educated patient on new blood thinner and pain medications . I explained indication, how to take, possible side effects, when to contact physician, and monitor parameters. We discussed (prior to admission) apixaban: S/S clotting (stroke/DVt/PE), bleeding (bruisin g, bleeding, GI/), and when to seek medical attention. The patient was encouraged to ambul ate often and to participate in PT. We discussed not to exceed 4,000 mg of acetaminophen per day. Patient was advised not to co nsume alcohol while taking opioid mediations. We discussed normal bowel movements should be about 1 to 2 per week. Advised patient to use docusate-senna twice daily until opioid pain medication regimen completed, and to add milk of magnesia and/or Miralax daily if no bowel m ovement within two days of discharge. Advised patient to contact surgeon's office if no bow el movement within three days of discharge. The patient verbalized understanding of the above and all questions were answered. Total Enriqueta int Nurse Navigator will follow-up with patient in one to two business days. Patient was pro vided with a reconciled discharge medication list as part of their AVS instructions. [place] bloom patient to share medication list with healthcare providers and keep list current. Gabriella Rogers, PharmD 08/14/2019 12:04 PM PDT Klever Santo RRT - 08/14/2019 9:00 AM PDTHome 02 evaluation Resting on room air 84% Resting with 3lpm 91% Exercising on room air 86% Exercising on 3 lpm 92% Tay Melgar MD - 08/14/2019 8:02 AM PDT Subjective: Post-Operative Day: 1 Day Post-Op Status Post right NIRAJ Systemic or Specific Complaints: Mild incisional pain Objective: Patient Vitals for the past 24 hrs: BP Temp Temp src Pulse Resp SpO2 08/14/19 0755 97/50 36.7 C (98 F) Oral 65 16 95 % 08/14/19 0745 64 16 95 % 08/14/19 0437 92/54 36.5 C (97.7 F) Oral 58 16 98 % 08/14/19 0037 58 18 97 % 08/13/19 2309 109/61 37.5 C (99.5 F) Oral 74 18 95 % 08/13/19 2100 71 20 95 % 08/13/19 1938 116/62 36.3 C (97.3 F) Oral 71 18 95 % 08/13/19 1530 130/56 36.1 C (97 F) 64 18 96 % 08/13/19 1431 111/64 63 17 97 % 08/13/19 1330 143/63 63 17 97 % 08/13/19 1325 64 91 % 08/13/19 1310 61 94 % 08/13/19 1230 123/75 52 16 97 % 08/13/19 1200 111/75 36 C (96.8 F) Axillary 54 16 97 % 08/13/19 1130 115/85 56 17 93 % 08/13/19 1125 115/84 53 24 92 % 08/13/19 1120 118/84 55 24 92 % 08/13/19 1115 117/86 59 18 93 % 08/13/19 1110 117/83 57 24 92 % 08/13/19 1105 117/88 58 28 93 % 08/13/19 1100 122/84 61 29 93 % 08/13/19 1055 119/90 62 17 90 % 08/13/19 1050 116/84 62 26 92 % 08/13/19 1045 119/82 66 21 92 % 08/13/19 1043 118/80 36.3 C (97.3 F) Temporal 65 18 93 % 08/13/19 1040 118/80 65 12 (!) 88 % I/O last 24 Hours: In: 5073.3 [P.O.:1680; I.V.:3393.3] Out: 1300 [Urine:800; Blood:500] General: Alert and oriented, no distress Bandage has been reinforced: clean, dry, intact Circulation: Right foot warm and well-perfused Neuro : 5/5 strength of right ankle flexion and extension; sensation intact to light touch on dorsal and plantar surfaces of foot Data Review Recent Results (from the past 24 hour(s)) Hemoglobin and Hematocrit Result Value Ref Range Hematocrit 32.3 (L) 40.0 - 51.0 % Hemoglobin 10.7 (L) 13.5 - 18.0 g/dL Extra Green Top Tube Result Value Ref Range Extra Green Top Tube Done Assessment: 1 Day Post-Op status post right NIRAJ Expected mild acute blood loss anemia Needing oxygen when recumbent Plan: Continue current postoperative course Eliquis for DVT prophylaxis Physical therapy for gait training rRadha segura RN - 08/14/2019 7:20 AM PDTIntroduced myself to patient as wood type finisher for Total Joints. Discu ssed with patient my role as RN Joint Navigator and how we can help with their total joint r ecovery. Pt. Joint journey plan remains the same, home with support life coach. Informed patien t they would be receiving a phone call from me 24-48 hours after they are discharge from the hospital. Informed patient I am a resource for them and will be following them for 90 days after discharge from hospital. Pt. Has his own walker in the room and is planning on being discharged to home in [place] with support life coach Gely. documented in this encounter H&P Notes Tay Chand MD - 08/13/2019 8:24 AM [facility] H[facility] AND PHYSICAL UPDATE Pt. Name/Age/: Patrice Interiano 64 y.o. 1955 Date of admission: 08/13/2019 The current H&P was reviewed. The patient was reexamined. Re-evaluation of the patient co nfirms the necessity for the scheduled procedure. No change has occurred in the patient s condition since the H&P was completed less than 30 days ago. Electronically signed by: Tay Chand MD, 08/13/2019 8:24 AM PDT [facility] signed by Tay Chand MD at 08/12 8:24 AM PDTLucio Oakley PA-C - 08/06/2019 2:02 PM PDTClinic Note Chief complaint: Right hip pain HPI: Patrice Interiano is a 64 year-old man who is seen today regarding a painful right hip. He reports it started bothering him a few years ago and has been progressive, especially thi s spring. He reports pain with any attempted walking. He feels the pain laterally. Stair s are very bad. He thinks this hip is even worse than his left one was prior to having it re placed. PMH: Hypertension, obesity, history of pulmonary embolism following lumbar spine surgery la st fall PSH: Left total hip, lumbar spine surgery x2 and cervical spine surgery Allergies: None Medications: Eliquis, Tizanidine, Lasix, lisinopril, Corgard, omeprazole, potassium, Mirape x, sertraline and terazosin Social history: The patient is . He is disabled. He drinks no alcohol and do es not use tobacco. Review of systems: Positive for hearing loss, heartburn, poor balance and falls. Physical examination: A significantly overweight middle-aged man in no acute distress. HEENT: Atraumatic, normocephalic and anicteric. Skin is warm and dry. Chest: Regular, nonlabored respirations. Cardiac: Regular pulse Orthopedic: Examination of the lower limbs shows the right side to be 1/4 inch shorter than the left. Range of motion of the right hip is moderately limited. Abduction is 40. In flexion, internal rotation is limited to 20 with significant pain. External rotation is 50 without significant pain. Patient walks with a significantly antalgic limp favorin g the right leg. Distal examination shows no cyanosis or clubbing. There is trace pretibial edema. There is a 2+ dorsalis pedis and posterior tibial pulse. There is full strength of ankle extens ion and flexion. He states normal sensation on the dorsal and plantar surfaces of both fee t. Radiographs: Plain films obtained today show [id number] right hip osteoarthritis and a st able left NIRAJ. Impression and plan: 64 year-old man with severe right hip arthrosis with very significan t and lifestyle limiting symptoms at the present time. He is desperate for relief of his p ain. I explained to the patient and his that the only thing that will give him long-t erm relief of his pain is a total hip arthroplasty. He is very much interested in proceedi ng with that as soon as possible, having had excellent results from his prior left total hip arthroplasty. Today, I reviewed with the patient and his the nature of total hip arthroplasty surger y, the multiple potential risks involved and the expected recovery afterward. I did explai n that he is at increased risk for thromboembolism and we will need to have him back on his Eliquis after surgery. He will need to hold the Eliquis for 3 days prior to surgery. The patient gives informed consent in writing. On the left side, we used a size 12 Taperloc stem with a +3 ceramic head and a size 56 acet abular component Past Medical History ?? History of Hypertension ?? History of Primary localized osteoarthrosis of left hip (M16.12) Surgical History ?? History of Total Hip Replacement Left Current Meds ?? Lasix 40 MG Oral Tablet (Furosemide); One tablet by mouth daily; Therapy: (Recorded:11May2017) to Recorded ?? Lisinopril 40 MG Oral Tablet; One tablet by mouth daily; Therapy: (Recorded:11May2017) to Recorded ?? Mirapex 0.5 MG Oral Tablet (Pramipexole Dihydrochloride); One tablet by mouth daily; Therapy: (Recorded:11May2017) to Recorded ?? Nadolol 40 MG Oral Tablet; TAKE 1 TABLET DAILY; Therapy: (Recorded:11May2017) to Recorded ?? Omeprazole 20 MG Oral Capsule Delayed Release; One capsule by mouth daily; Therapy: (Recorded:11May2017) to Recorded ?? Potassium Chloride Yaa ER 10 MEQ Oral Tablet Extended Release; TAKE 1 TABLET DAILY; Therapy: (Recorded:11May2017) to Recorded ?? Sertraline HCl - 50 MG Oral Tablet; One tablet by mouth daily; Therapy: (Recorded:11May2017) to Recorded ?? Terazosin HCl - 5 MG Oral Capsule; One capsule by mouth daily; Therapy: (Recorded:11May2017) to Recorded Allergies ?? No Known Drug Allergies Vitals Vitals Panel Recorded: 24Jul2019 02:19PM Heart Rate: 59, L Radial Blood Pressure: 125 / 69, LUE, Sitting Weight: 263 lb Assessment ?? Primary localized osteoarthritis of right hip (M16.11) CS-Active Problems 1. 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 Preoperative examination (Z01.818) 3. Primary localized osteoarthritis of right hip (M16.11) 4. 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 P maren to right hip has been managed with Callender pill PRN. Tolerating diet well. VSS, remains on oxygen via NC at 3L/min. No c/o SOB or chest pain reported. Pt has been ambulating to the athroom with SBA and FWW. Calls approprietly for assistance. Pt will be discharge home today . Problem: Adult Inpatient Plan of Care Goal: Plan of Care Review Outcome: Ongoing, progressing Goal: Patient-Specific Goal Outcome: Ongoing, progressing Goal: Absence of Hospital-Acquired Illness or Injury Outcome: Ongoing, progressing Goal: Optimal Comfort and Wellbeing Outcome: Ongoing, progressing Goal: Readiness for Transition of Care Outcome: Ongoing, progressing Goal: Rounds/Family Conference Outcome: Ongoing, progressing Problem: Bleeding (Hip Arthroplasty) Goal: Absence of Bleeding Outcome: Ongoing, progressing Problem: Bowel Elimination Impaired (Hip Arthroplasty) Goal: Effective Bowel Elimination Outcome: Ongoing, progressing Problem: Infection (Hip Arthroplasty) Goal: Absence of Infection Signs/Symptoms Outcome: Ongoing, progressing Problem: Joint Function Impaired (Hip Arthroplasty) Goal: Optimal Functional Ability Outcome: Ongoing, progressing Problem: Ongoing Anesthesia Effects (Hip Arthroplasty) Goal: Anesthesia/Sedation Recovery Outcome: Ongoing, progressing Problem: Pain (Hip Arthroplasty) Goal: Acceptable Pain Control Outcome: Ongoing, progressing Problem: Postoperative Nausea and Vomiting (Hip Arthroplasty) Goal: Nausea and Vomiting Relief Outcome: Ongoing, progressing Problem: Postoperative Urinary Retention (Hip Arthroplasty) Goal: Effective Urinary Elimination Outcome: Ongoing, progressing Problem: Hypertension Comorbidity Goal: Blood Pressure in Desired Range Outcome: Ongoing, progressing Problem: Obstructive Sleep Apnea Risk or Actual (Comorbidity Management) Goal: Unobstructed Breathing During Sleep Outcome: Ongoing, progressing Problem: Skin Injury Risk Increased Goal: Skin Health and Integrity Outcome: Ongoing, progressing Problem: Fall Injury Risk Goal: Absence of Fall and Fall-Related Injury Outcome: Ongoing, progressing Problem: Mobility Impairment Goal: Optimal Mobility Outcome: Ongoing, progressing Problem: Discharge Planning Goal: Patient's discharge needs will be identified in a timely manner Outcome: Ongoing, progressing Goal: Patient will be discharged in a safe manner Outcome: Ongoing, progressing lan of Care - Monica Copeland OT - 08/14/2019 10:34 AM PDTFormatting of this note might be different from kermit black. Occupational Therapy Initial Evaluation, Treatment, Discharge Note Recommended discharge disposition: home with assist Post discharge occupational therapy recommendation: no further OT Equipment Recommendations: license inspector, sock aide, shower chair Barriers to community-based discharge: Fall risk Planned Interventions: ADL retraining, functional endurance training, transfer training Recommended Frequency: one time visit for 1 days with reassessment due by 08/14/19 Summary: Patrice has been participating in occupational therapy for treatment of Decreased A DL independence, funcctional mobility, activity tolerance s/p NIRAJ, posterior approach.. Emp hasis of session included bed mobility, education and training on posterior hip precautions, MLD training for edema management, functional t/fs and mobility training. Patient demonst rates progress towards functional goals as evidenced by demonstrating adequate safety with f unctional t/fs and ADLS as well as pt verbalizes having adequate assistance at home from merritt weir with no questions or concern. Will d/c acute OT at this time. RN cleared patient for participation in therapy. Patient was agreeable to therapy. Patient participated without adverse reaction. RN debriefed on therapy session and patient status. P atient is encouraged to ambulate into hallway with nursing staff. It is encouraged that the patient be up in chair for all meals. Recommended toileting with nursing: Day Night toilet toilet Front Wheel Walker Front Wheel Walker stand by assistance stand by assistance Patrice will benefit from continued therapeutic intervention to address ongoing impairments an d increase safety and independence with activities necessary for safe discharge. Refer alexander pagan for specific details regarding functional levels. Living Environment Living Environment Comment: tub shower with hand held shower head, shower chair; regular to ilet, has a seat riser. Independent with mobility and ADLs Precautions Precautions/Limitations: falls, right posterior hip precautions Right Lower Extremity Weight-Bearing: weight-bearing as tolerated Cognitive Assessment Mood/Behavior: calm, cooperative Orientation: oriented x 4 Arousal Level: opens eyes spontaneously Impairments Found (describe specific impairments): gait, locomotion, and balance, ergonomic s and body mechanics, functional endurance/activity tolerance Grooming Assessment/Training Grooming Assess/Train, Comment: mod I at sink to wash hands. Grooming, Level of [place]: modified independent Assistive Device: none Grooming Assess/Train, Position: standing Grooming Impairments: pain Lower Body Dressing Assessment/Training LB Dressing Assess/Train, Comment: LB dressing: verbal discussion. pt states he as all AE a t home from prior surgery and has no questions or concerns using sock aid or license inspector for tomer ssing. LB Dressing, Level of [place]: modified independent(per pt. report. verbalized not mariam barajas to work on in therapy) Assistive Device: none LB Dressing Assess/Train, Position: sitting LB Dressing Impairments: decreased flexibility, ROM decreased, pain Toileting Assessment/Training Toileting Assess/Train, Comment: mod with hygiene and clothing management. Toileting, Level of [place]: modified independent Assistive Device: grab bar Toileting Assess/Train, Position: sitting, standing Toileting Impairments: decreased flexibility, ROM decreased, pain Bed Mobility Bed Mobility Comments: following education and training on hooking method. pt. able to demo nstrate safe return Additional Documentation: supine to/from sit Assistive Device: none Supine to Sit, Level of [place]: modified independent Sit to Supine, Level of [place]: not tested Safety Issues: decreased use of legs for bridging/pushing Impairments: strength decreased, pain Transfers Transfers Comments: following education and training of precautions. demonstrated good retu rn of safety and functional t/fs. Additional Documentation: toilet, walk-in shower, sit to/from stand Sit-Stand, Level of [place]: modified independent Stand-Sit, Level of [place]: modified independent [id number], Assistive Device: 2 wheeled walker (FWW) Toilet, Level of [place]: modified independent Toilet, Assistive Device: 2 wheeled walker (FWW), grab bars, toilet safety frame Walk-in shower, Level of [place]: stand by assist, verbal cues required Walk-in shower, Assistive Device: 2 wheeled walker (FWW), grab bars, shower chair Impairments: strength decreased, impaired balance, motor control impaired, postural control impaired Range of Motion L UE ROM: WFL R UE ROM: WFL Strength L UE Strength: WFL R UE Strength: WFL Functional Endurance Functional Endurance Comments: good for activities performed Goals Reflects last filed data and may be from multiple contributors. Additional Goals #1 OT Most Recent Value LTG Status new, met at 08/14/2019 1034 LTG pt. will engage and complete OT evaluation and verbalize/demonstrate MLD techniques f or edema management with use of handout at 08/14/2019 1034 Date of Surgery: 08/13/19 Start of Care/Start of Certification Date: 08/14/19 End of Certification Date: 08/14/19 Unilateral primary osteoarthritis, left hip [M16.12] OT Time Calculation OT Individual Start Time: 1029 OT Individual Stop Time: 1107 OT Individual Total Time: 38 OT Total Treatment Time: 38 Timed [place] Code Minutes: 23 Electronically signed by: Monica Cai OT, 08/14/2019 1:22 PM PDT lan of Krissy Winters MSW - 08/14/2019 10:33 AM PDTMet with patient to discuss discharge plann ing, he lives in [place] with his . Patient has a FWW in his room. Discussed home oxyg en, patient states he uses "[employer]" for his Cpap supplies. States his wi ll provide transportation. Phone call to G[facility], discussed home Cpap, she states [facility] services the Cpap, would like to use them for home oxygen. Geyl confirmed that she will provide transportation . Discussed with that [facility] will need to deliver oxygen home before she drive s to pick him up, she will need to bring a portable cannister. Home oxygen order faxed to [facility], confirmation received and placed in ghost chart . Phone call to [facility], confirmed that the received the order, states is there now to supervisor opening and picking the portable cannister. [facility] will be faxing Dr. Chand for another signature, contact phone number given to [facility]. Plan: Home with when medically stable. Electronically signed by: WILLIAM Hoang 08/14/2019 11:41 AM PDT lan of [place] - Esmer Parry RR T - 08/14/2019 9:30 AM PDTTony oxygen saturation is SpO2: 90 % on room air and a heart rate of 67. Breath sounds are clear, equal bilaterally Pt has a good, nonproductive cough. Pt's respirations are depth regular with no retractions , no use of accessory muscles, expansion symmetric. Incentive Spirometer IS Predicted Level (mL) : 3300 IS Administration : done with encouragement IS Number of Repetitions : 10 IS Level (mL) : 2000 Patient Tolerance: good Pt needs to be on oxygen @ 3lpm to keeps over 88% lan of Care - Martina Johnson, PUMP ERECTOR - 08/14/2019 9:13 AM PDTFormatting of this note might be different f rom the original. Physical Therapy Plan of Care Treatment Note Summary: Patrice has been participating in physical therapy for treatment of impaired acvity tolerance, functional mobility s/p NIRAJ, posterior approach. Emphasis of session included functional mobility and activity tolerance training with focus on safety with bed mob, transfers, gait training. Patient demonstrates progress towards functional goals as evidenced by patient's improvemen t in all aspects of mobility. RN cleared patient for participation in therapy. Patient was agreeable to therapy. Patient participated without adverse reaction. Patient is encouraged to ambulate into hallway with n ursing staff. It is encouraged that the patient be up in chair for all meals. Recommended mobility with nursing: Day Night into the bathroom and into the hallway into the bathroom and into the hallway Front Wheel Walker Front Wheel Walker supervision / set-up supervision / set-up Remaining barriers to discharge and functional limitations include decreased functional act ivity tolerance, decreased bed mobility, and stairs at home. Patrice will benefit from continued therapeutic intervention to address ongoing impairments an d increase safety and independence with activities necessary for safe discharge. Refer alexander pagan for specific details regarding functional levels. Physical Therapy Discharge Recommendations are: Recommended discharge disposition: home Post discharge physical therapy recommendation: outpatient therapy Equipment Recommendations: (has needed DME) Planned Interventions: balance training, bed mobility training, gait training, home exerci se program, patient/family education, stair training, strengthening, transfer training Recommended Frequency: daily(1-2 times/day) Patient Status/Goals: Reflects last filed data and may be from multiple contributors. Gait improving Level of [place]: contact guard assist Assistive Device: 2 wheeled walker (FWW) Distance (feet): 100' Impairments: strength decreased, impaired balance, motor control impaired, postural control impaired Stairs Will address in PM session Transfers SBA Sit-Stand, Level of [place]: stand by assist Stand-Sit, Level of [place]: stand by assist [id number], Assistive Device: 2 wheeled walker (FWW) Impairments: strength decreased, motor control impaired Bed Mobility MIn A to LE BTB Assistive Device: none Scoot/Bridge, Level of [place]: contact guard assist Supine to Sit, Level of [place]: not tested Sit to Supine, Level of [place]: minimal assist (75% patient effort), verbal cues requ ired, tactile cues required Safety Issues: decreased use of legs for bridging/pushing Impairments: strength decreased, pain Balance improving Sitting Balance: Static: good balance Sitting Balance: Dynamic: good balance Standing Balance: Static: good balance Standing Balance: Dynamic: good balance Therapeutic Exercise NIRAJ HEP, precautions Functional Endurance good for activities presented PT Goal Review Date Most Recent Value LTG Review Date 08/20/19 at 08/13/2019 1310 [id number] Goal Most Recent Value LTG Status progressing at 08/14/2019 0913 LTG [place] Level modified independent at 08/13/2019 1310 LTG Assistive Device none at 08/13/2019 1310 [id number]-Sjw Goal Most Recent Value LTG Status progressing at 08/14/2019 0913 LTG [place] Level modified independent at 08/13/2019 1310 LTG Assistive Device 2 wheeled walker (FWW) at 08/13/2019 1310 Gait Goal Most Recent Value LTG Status progressing at 08/14/2019 0913 LTG [place] Level modified independent at 08/13/2019 1310 LTG Assistive Device 2 wheeled walker (FWW) at 08/13/2019 1515 LTG Distance (feet) 50 x2 at 08/13/2019 1310 Stair Goal Most Recent Value LTG Status new at 08/13/2019 1515 LTG [place] Level modified independent at 08/13/2019 1515 LTG Assistive Device 1 rail at 08/13/2019 1515 LTG Number of Stairs 4 at 08/13/2019 1515 Ther Exercise Goal Most Recent Value LTG Status new at 08/13/2019 1515 LTG Independent with HEP at 08/13/2019 1515 PT Time Calculation Individual Start Time: 0835 Individual Stop Time: 0913 Individual Total Time: 38 Missed Treatment Time: 0 PT Total Treatment Time: 38 Timed [place] Code Minutes: 38 Electronically signed by: Martina Johnson PTA, 08/14/2019 11:50 AM PDT lan of [place] - Madelyn Raymundo RRT - 08/14/2019 4:22 AM PDTTony oxygen saturation is SpO2: 97 % on 5liters/minute nasal cannula with humidification and a heart rate of 58. Breath sounds are clear, equal bilaterally and post breathing treatment breath sounds are . Pt has a good, nonproductive cough. Pt's respirations are shallow, no shortness of breath r eported, pattern regular with no retractions, no use of accessory muscles, expansion symmetr ic. Pt titrated to 4lpm and initially maintained O2Sat >92%, however, RT was called by RN that pt was desatting, O2 was increased back to 5lpm. No signs of resp distress observed. Pt deci ded not to wear CPAP during this shift. Says he prefers the [place]. lan of Guerita - Rosa Plummer RN - 2019 4:12 AM PDTVials stable. Reported moderate pain in R hip, however only requested tylen ol for pain. A&O x4. HR regular, lungs clear. Voiding without difficulty, passing flatus. Dr corrigan clean, dry, and intact. Patient ambulating to bathroom with walker. 2nd liter of LR r unning at 100. Abductor pad in place. Electronically signed by Rosa Plummer RN at 08/13 4:22 AM PDTPlan of [place] - Gamaliel Caceres RN - 08/13/2019 4:29 PM PDTTony is A&Ox4, pain was managed with [place] PRN, VSS, remains on oxygen via NC at 5L/min. VSS, tolerating d iet well. CMS intact, dressing was reinforce d/t small drainage. One person CGA with FWW, sabina lls approprietly for assistance. Frequent rounding. Problem: Adult Inpatient Plan of Care Goal: Plan of Care Review Outcome: Ongoing, progressing Goal: Patient-Specific Goal Outcome: Ongoing, progressing Goal: Absence of Hospital-Acquired Illness or Injury Outcome: Ongoing, progressing Goal: Optimal Comfort and Wellbeing Outcome: Ongoing, progressing Goal: Readiness for Transition of Care Outcome: Ongoing, progressing Goal: Rounds/Family Conference Outcome: Ongoing, progressing Problem: Bleeding (Hip Arthroplasty) Goal: Absence of Bleeding Outcome: Ongoing, progressing Problem: Bowel Elimination Impaired (Hip Arthroplasty) Goal: Effective Bowel Elimination Outcome: Ongoing, progressing Problem: Infection (Hip Arthroplasty) Goal: Absence of Infection Signs/Symptoms Outcome: Ongoing, progressing Problem: Joint Function Impaired (Hip Arthroplasty) Goal: Optimal Functional Ability Outcome: Ongoing, progressing Problem: Ongoing Anesthesia Effects (Hip Arthroplasty) Goal: Anesthesia/Sedation Recovery Outcome: Ongoing, progressing Problem: Pain (Hip Arthroplasty) Goal: Acceptable Pain Control Outcome: Ongoing, progressing Problem: Postoperative Nausea and Vomiting (Hip Arthroplasty) Goal: Nausea and Vomiting Relief Outcome: Ongoing, progressing Problem: Postoperative Urinary Retention (Hip Arthroplasty) Goal: Effective Urinary Elimination Outcome: Ongoing, progressing Problem: Hypertension Comorbidity Goal: Blood Pressure in Desired Range Outcome: Ongoing, progressing Problem: Obstructive Sleep Apnea Risk or Actual (Comorbidity Management) Goal: Unobstructed Breathing During Sleep Outcome: Ongoing, progressing Problem: Skin Injury Risk Increased Goal: Skin Health and Integrity Outcome: Ongoing, progressing Problem: Fall Injury Risk Goal: Absence of Fall and Fall-Related Injury Outcome: Ongoing, progressing Problem: Mobility Impairment Goal: Optimal Mobility Outcome: Ongoing, progressing lan of [place] - Della Ruvalcaba PT - 08/13/2019 3:15 PM PDTFormatting of this note might be different from t sharifa original. Problem: Mobility Impairment Goal: Optimal Mobility 08/13/2019 1533 by Della Mistry, PT Outcome: Ongoing, progressing 08/13/2019 1335 by Della Mistry, PT Outcome: Ongoing, progressing Physical Therapy Treatment Note Recommended discharge disposition: home Post discharge physical therapy recommendation: outpatient therapy Equipment Recommendations: (has needed DME) Barriers to community-based discharge: Physical Impairment, Level of assistance for ADLs/Mo bility, and Precautions Planned Interventions: balance training, bed mobility training, gait training, home exercis e program, patient/family education, stair training, strengthening, transfer training (may reflect documentation from different provider) Recommended Frequency: daily(1-2 times/day) for 7 days with reassessment due by 08/20/19 Summary: Patrice has been participating in physical therapy for treatment of impaired acvity tolerance, functional mobility s/p NIRAJ, posterior approach. Emphasis of session included ga it training and improving independence. Patient demonstrates progress towards functional go als as evidenced by progressed independence and gait. Medbridge handout given. Patient edu cated on posterior hip precautions: no internal rotation, no excessive flexion, no adduction past midline. RN cleared patient for participation in therapy. Patient was agreeable to therapy. Patient participated without adverse reaction. RN debriefed on therapy session and patient status. P taraient is encouraged to ambulate into hallway with nursing staff. It is encouraged that the patient be up in chair for all meals. Recommended mobility with nursing: Day Night into the hallway into the bathroom Front Wheel Walker Front Wheel Walker minimum assistance minimum assistance Patrice will benefit from continued therapeutic intervention to address ongoing impairments an d increase safety and independence with activities necessary for safe discharge. Refer alexander pagan for specific details regarding functional levels. Bed Mobility Bed Mobility Comments: OOB onto the left side of the bed Assistive Device: none Supine to Sit, Level of [place]: contact guard assist Sit to Supine, Level of [place]: contact guard assist Impairments: strength decreased, impaired balance, motor control impaired, postural control impaired Transfers Transfers Comments: improved safety, min A still for assist with lines and walker Sit-Stand, Level of [place]: minimal assist (75% patient effort), set up required, wilbur bal cues required Stand-Sit, Level of [place]: minimal assist (75% patient effort), set up required, wilbur bal cues required [id number], Assistive Device: 2 wheeled walker (FWW) Impairments: strength decreased, impaired balance, motor control impaired, postural control impaired Gait Gait Comments: improved safety Level of [place]: minimal assist (75% patient effort), set up required, verbal cues re quired Assistive Device: 2 wheeled walker (FWW) Distance (feet): 30 x2 Impairments: strength decreased, impaired balance, motor control impaired, postural control impaired Goals Reflects last filed data and may be from multiple contributors. [id number] Goal Most Recent Value LTG Status progressing at 08/13/2019 1515 LTG [place] Level modified independent at 08/13/2019 1310 LTG Assistive Device none at 08/13/2019 1310 Lax-[id number]-Jlx Goal Most Recent Value LTG Status progressing at 08/13/2019 1515 LTG [place] Level modified independent at 08/13/2019 1310 LTG Assistive Device 2 wheeled walker (FWW) at 08/13/2019 1310 Gait Goal Most Recent Value LTG Status new at 08/13/2019 1310 LTG [place] Level modified independent at 08/13/2019 1310 LTG Assistive Device 2 wheeled walker (FWW) at 08/13/2019 1515 LTG Distance (feet) 50 x2 at 08/13/2019 1310 Stair Goal Most Recent Value LTG Status new at 08/13/2019 1515 LTG [place] Level modified independent at 08/13/2019 1515 LTG Assistive Device 1 rail at 08/13/2019 1515 LTG Number of Stairs 4 at 08/13/2019 1515 Ther Exercise Goal Most Recent Value LTG Status new at 08/13/2019 1515 LTG Independent with HEP at 08/13/2019 1515 PT Time Calculation Individual Start Time: 1455 Individual Stop Time: 1512 Individual Total Time: 17 Missed Treatment Time: 0 PT Total Treatment Time: 17 Timed [place] Code Minutes: 17 Electronically signed by: Della Mistry, PT, 08/13/2019 3:34 PM PDT lan of Mahendra Boykin, DRESSING ROOM ATTENDANT - 08/13/2019 1:32 PM PDTProblem: Prevent post operative hypoxia by 08/17/19 Prevent post operative atelectasis/pneumonia by 08/17/19 Prevent obstructive sleep apnea for duration of stay Plan: Titrate oxygen to room air keeping oxygen saturation at or >92% Patient to achieve 75% of predicted normal for inspirometer and or using on own Patient to use own cpap for obstructive sleep apnea Patient back from surgery on 3 l/m nasal oxygen with an oxygen saturation = 94%. Pat ient dropped to 91% and oxygen titrated up to 5 l/m. Oxygen at 5 l/m also bled into patient cpap. Inspirometer done to 66% of predicted normal with good strong non-productive cough. Lung sounds clear, diminished. Will continue to follow lan of Della Raymundo, PT - 08/13/2019 1:10 P M PDT Problem: Mobility Impairment Goal: Optimal Mobility Outcome: Ongoing, progressing Physical Therapy Initial Evaluation Note Recommended discharge disposition: home Post discharge physical therapy recommendation: outpatient therapy Equipment Recommendations: (has needed DME) Barriers to community-based discharge: Physical Impairment, Level of assistance for ADLs/Mo bility, and Precautions Planned Interventions: balance training, bed mobility training, gait training, home exercis e program, patient/family education, stair training, strengthening, transfer training Recommended Frequency: daily(1-2 times/day) for 7 days with reassessment due by 08/20/19 Summary: Patrice has been participating in physical therapy for treatment of impaired acvity tolerance, functional mobility s/p NIRAJ, posterior approach. Emphasis of session included ga it training. Patient demonstrates progress towards functional goals as evidenced [facility] to perform gait post-operatively. RN cleared patient for participation in therapy. Patient was agreeable to therapy. Patient participated without adverse reaction. RN debriefed on therapy session and patient status. I t is encouraged that the patient be up in chair for all meals. Recommended mobility with nursing: Day Night bedside commode bedside commode Front Wheel Walker Front Wheel Walker minimum assistance minimum assistance Patrice will benefit from continued therapeutic intervention to address ongoing impairments an d increase safety and independence with activities necessary for safe discharge. Refer alexander pagan for specific details regarding functional levels. Living Environment Lives With: spouse Number of Stairs to Enter Home: 1 Living Environment Comment: tub shower with hand held shower head, shower chair; regular to ilet, has a seat riser. Precautions Precautions/Limitations: falls, right posterior hip precautions Right Lower Extremity Weight-Bearing: weight-bearing as tolerated Cognitive Assessment Additional Documentation: mood/behavior, orientation, arousal level Mood/Behavior: calm, cooperative Orientation: oriented x 4 Arousal Level: opens eyes spontaneously Impairments Found (describe specific impairments): aerobic capacity/endurance, functional e ndurance/activity tolerance, gait, locomotion, and balance, joint integrity and mobility, mu scle performance, integumentary integrity Bed Mobility Additional Documentation: supine to/from sit Assistive Device: none Supine to Sit, Level of [place]: minimal assist (75% patient effort) Impairments: strength decreased, impaired balance, motor control impaired, postural control impaired Transfers Transfers Comments: 2P assist for safety, knee block for safety Additional Documentation: sit to/from stand Sit-Stand, Level of [place]: minimal assist (75% patient effort), 1 person + 1 person to manage equipment, set up required, verbal cues required Stand-Sit, Level of [place]: minimal assist (75% patient effort), 1 person + 1 person to manage equipment, set up required, verbal cues required [id number], Assistive Device: 2 wheeled walker (FWW) Impairments: strength decreased, impaired balance, motor control impaired, postural control impaired Gait Gait Comments: min A for safety, progressing activity with marching and pre-gait; step over step Level of [place]: minimal assist (75% patient effort), 1 person + 1 person to manage e quipment, set up required, verbal cues required Assistive Device: 2 wheeled walker (FWW) Distance (feet): 25 x2 Additional Documentation: impairments Impairments: strength decreased, impaired balance, motor control impaired, postural control impaired Range of Motion ROM Testing Results: no range of motion deficits identified R LE ROM: impaired secondary to recent surgery Strength R LE Strength: impaired secondary to recent surgery; grossly WFL Balance Sitting Balance: Static: good balance Sitting Balance: Dynamic: good balance Standing Balance: Static: good balance Standing Balance: Dynamic: fair balance Goals Reflects last filed data and may be from multiple contributors. Htoylo-Opq-Bpjguy Goal Most Recent Value LTG Status new at 08/13/2019 1310 LTG [place] Level modified independent at 08/13/2019 1310 LTG Assistive Device none at 08/13/2019 1310 Llp-Pmlge-Bxh Goal Most Recent Value LTG Status new at 08/13/2019 1310 LTG [place] Level modified independent at 08/13/2019 1310 LTG Assistive Device 2 wheeled walker (FWW) at 08/13/2019 1310 Gait Goal Most Recent Value LTG Status new at 08/13/2019 1310 LTG [place] Level modified independent at 08/13/2019 1310 LTG Assistive Device 2 wheeled walker (FWW) at 08/13/2019 1310 LTG Distance (feet) 50 x2 at 08/13/2019 1310 PT Time Calculation Individual Start Time: 1248 Individual Stop Time: 1313 Individual Total Time: 25 Missed Treatment Time: 0 PT Total Treatment Time: 25 Timed TX Code Minutes: 10 Date of Onset of Illness/Injury or Date of Surgery: 08/13/19 Start of Care/Start of Certification Date: 08/13/19 End of Certification Date: 08/20/19 Unilateral primary osteoarthritis, left hip [M16.12] Electronically signed by: Della Mistry PT, 08/13/2019 1:35 PM PDT p Note - Tay Chand MD - 08/13/2019 10:40 AM PDTTotal Hip Arthroplasty Operative Report Indications: Patrice Interiano has severe osteoarthritis of the right hip with symptoms limi ting function. After failing reasonable conservative measures, Patrice Interiano elects to pr oceed with surgical treatment. Risk and benefits were discussed. Consent was obtained in [facility]. Pre-operative Diagnosis: Right hip osteoarthritis Post-operative Diagnosis: Right hip osteoarthritis Procedure: Right total hip arthroplasty Approach: Posterolateral Anesthesia: @ORANES@ Anesthesiologist: Wesly Armenta MD Surgeon: Tay Chand MD Attending Attestation: I was present and scrubbed for the entire procedure. Manager Qa: MARY Bansal. Note the first aid instructor was necessary in performing th is procedure. Findings: Severe arthrosis. Higher than normal bony bleeding. Moderately difficult surgical exposure due to body habitus. Estimated Blood Loss: 500 mL Drains: none Specimens: none Pain Cocktail: Ropivacaine 123 mg, epinephrine 0.25 mg, clonidine 0.04 mg and ketorolac 15 mg Implants: Garfield Taperloc stem size 13 with a +3/36 ceramic head. Garfield G7 acetabular she ll size 56 mm with a non-lipped liner ROM: leg lengthening less than 0.5 cm based on down leg technique and intra-operative radio graph. Stable to flexion internal rotation to 60 degrees. Stable in sleeping position. No impingement with extension and external rotation. Complications: none Procedure Details Patrice Interiano was seen in the preoperative area. Surgical site was marked and identified . Appropriate antibiotic prophylaxis was given. The patient was taken to the operating room where successful @ORANES@ was performed. Patient was then positioned in the left lateral de cubitus position using [place] positioners. All bony prominences were well padded including use of an axillary roll. The right hip area was then prepped and draped in the usual steri le fashion. Tranexamic acid 1 g was given IV. Posterolateral approach to the hip was made to gain access to the hip joint. The pyriformis, short external rotators and posterior capsule were reflected off the posterior greater trochanter prior to dislocation. Leg length was es timated using down leg technique. Femoral neck osteotomy was performed based off the preoper ative templated level. Acetabular retractor was then positioned. This was followed by circum ferential labral resection. The acetabulum was gradually enlarged with sequential reaming un til bleeding bone was encountered. A trial device was then positioned followed by placement of the final shell and trial liner. Femoral canal was identified and gradually enlarged with sequential broaching until proxima l fit was achieved. Trialing at this time demonstrated good soft tissue tension without ove r lengthening of the operative leg. Stability was achieved with hyperflexion and internal r otation. There was no impingement with extension and external rotation. The hip was stable in sleeping position. A cross-table AP pelvis film confirmed good component position and s ymmetric limb lengths. Trial components were removed. Acetabular fixation was enhanced with one screw with superb purchase. Articular liner was locked into the acetabular component and was confirmed to be seated flush. The femoral component was inserted with excellent stability. Trialing showed t he +3 mm head was appropriate, was selected and placed on the clean and dry trunnion. Hip wa s gently reduced. Hip was thoroughly irrigated with saline. Posterior capsule, short externa l rotator was repaired to the posterior aspect of the trochanter through drill holes using a #5 Ethibond suture. The fascia was then closed with interrupted suture followed by layered closure of subcutaneous tissue with 2-0 Vicryl and staple closure of the skin. The pain cock tail was injected subcutaneously and deep. The patient tolerated the procedure without any d ifficulty. Subsequently transferred to postanesthesia care unit in stable condition. POSTOPERATIVE PLAN: The patient will be allowed [...] 1 | | | | e | hip replacement, | Occurrences starting | | | | | right | 08/13/2019 until | | | | | | 08/13/2019 | + +------+--------+ + + | DME: Oxygen Therapy | DME | Routin | Obstructive sleep | Ordered: 08/14/2019 | | | | e | apnea with nocturnal | | | | | | hypoxemia | | + +------+--------+ + + documented as [...] - | | | [facility] | +---+--------+ + +---+ +---+ + | PATHOLOGY - EXTERNAL | | 08/11/2019 | | Results for this | | SCAN | | 12:00 AM | | procedure are in the | | | | PDT | | results section. | + +---+ +---+ + | LABS - EXTERNAL SCAN | | 07/24/2019 | | Results for this | | | | 12:00 AM | | procedure are in the | | | | PDT | | results section. | + +---+ +---+ + | ECG - EXTERNAL SCAN | | 07/24/2019 | | Results for this | | | | 12:00 AM | | procedure are in the | | | | PDT | | results section. | + +---+ +---+ + documented in this encounter Results Extra Green Top Tube (08/14/2019 5:26 AM [...] + | [facility] | [address] | [place] | [phone] | | [facility] | | [id number] | | | - LABORATORY | | [...] | | | | | | [facility] | | | | | [facility] | | | | | | [facility] - | | | | | | LABORATORY | | + + + + + + | Hemoglobin | 10.7 (L) | 13.5 - 18.0 | [facility] | | | | | g/dL | [facility] | | | | | [...] [facility] | [address] | [place] | [phone] | | [facility] | | [id number] | | | - LABORATORY | | | | + + + + + XR Pelvis 1 or 2 Vw (08/13/2019 11:00 AM PDT) + + | Specimen | [...] XR Pelvis 1 or 2 Vw (08/13/2019 9:43 AM PDT) + + | Specimen | + + | | + + + + + | Impressions | Performed At | + + + | Intraoperative right hip arthroplasty. Electronically signed by | [facility] | | Sergio Santos MD 08/13/2019 11:22 AM | | + + + + + + | Narrative | Performed At | + + + | XR PELVIS 1 OR 2 VW 08/13/2019 9:43 AM HISTORY: intra op. | [facility] | | COMPARISON: None. FINDINGS: Intraoperative x-rays show placement | | | of hardware into the right hip. | | + + + + + | Procedure Note | + + | Francisco, Rad Results In - 08/13/2019 11:27 AM PDT XR PELVIS 1 OR 2 VW 08/13/2019 9:43 AM | | | | HISTORY: intra op. | | | | COMPARISON: None. | | | | FINDINGS: | | Intraoperative x-rays show placement of hardware into the right hip. | | | | IMPRESSION: | | Intraoperative right hip arthroplasty. | | | | Electronically signed by Sergio Santos MD 08/13/2019 11:22 AM | + + + +---------+ + + | Performing | Address | City/State/Zipcode | Phone Number | | Organization | | | | + +---------+ + + | [facility] | | | | + +---------+ + + PATHOLOGY - EXTERNAL SCAN (08/11/2019 12:00 AM PDT) + + + | Narrative | Performed At | + + + | Ordered by an | | | unspecified provider. | | + + + LABS - EXTERNAL SCAN (07/24/2019 12:00 AM PDT) + + + | Narrative | Performed At | + + + | Ordered by an | | | unspecified provider. | | + + + ECG - EXTERNAL SCAN (07/24/2019 12:00 AM PDT) + + + | Narrative | Performed At | + + + | Ordered by an | | | unspecified provider. | | + + + documented in this encounter Visit Diagnoses + + | Diagnosis | + + | Status post total hip replacement, right - Primary | + + | Obstructive sleep apnea with nocturnal hypoxemia Obstructive sleep apnea (adult) | | (pediatric) | + + documented in this encounter Administered Medications + +--------+ + +------+------+ | Medication Order | MAR | Action | Dose | Rate | Site | | | Action | Date | | | | + +--------+ + +------+------+ | acetaminophen (TYLENOL) tablet | Given | 08/13/19 | 1,000 mg | | | | 1,000 mg 1,000 mg, Oral, ONCE, | | 20 6:34 | | | | | Sun08/13/19 at 0645, For 1 dose, | | AM PDT | | | | | Pre-op | | | | | | + +--------+ + +------+------+ +---+---+ | | | +---+---+ + +-------+ + +---+---+ | acetaminophen (TYLENOL) tablet | Given | 08/14/19 | 1,000 mg | | | | 1,000 mg 1,000 mg, Oral, EVERY 8 | | 20 6:50 | | | | | HOURS, First dose on Sun08/13/19 | | AM PDT | | | | | at 1400, Start 8 hours after | | | | | | | pre-op dose., Post-op/Phase II | | | | | | + +-------+ + +---+---+ +-------+ + +---+---+ | Given | 08/13/19 | 1,000 mg | | | | | 20 10:43 | | | | | | PM PDT | | | | +-------+ + +---+---+ + +---+ | | | + +---+ | albuterol 2.5 mg/3 mL nebulizer | | | solution 2.5 mg 2.5 mg, | | | Nebulization, RT EVERY 6 HOURS | | | PRN, Wheezing, Starting Wed | | | 08/13/19 at 1214, RT will | | | administer., | | + +---+ | | | + +---+ + +-------+ +------+---+---+ | apixaban (ELIQUIS) tablet 5 mg | Given | 08/14/19 | 5 mg | | | | 5 mg, Oral, 2 TIMES DAILY, First | | 20 6:51 | | | | | dose on Sun08/14/19 at 0730, | | AM PDT | | | | | Post-op/Phase II | | | | | | + +-------+ +------+---+---+ +---+---+ | | | +---+---+ + +-------+ +-----+---+---+ | ceFAZolin (ANCEF, KEFZOL) 2 g | Given | 08/14/19 | 2 g | | | | in sterile water 20 mL syringe | | 20 1:11 | | | | | (100 mg/mL) 2 g, Intravenous, | | AM PDT | | | | | EVERY 8 HOURS INTERVAL, First | | | | | | | dose on Sun08/13/19 at 1700, For | | | | | | | 2 doses, Start 8 hours after | | | | | | | previous dose. Last dose to be | | | | | | | given within 24 hours of surgery | | | | | | | end time Keep in refrigerator. | | | | | | | Give IV push over 3-5 minutes., | | | | | | | Post-op/Phase II, Indications: | | | | | | | Surgical Prophylaxis | | | | | | + +-------+ +-----+---+---+ +-------+ +-----+---+---+ | Given | 08/13/19 | 2 g | | | | | 20 5:59 | | | | | | PM PDT | | | | +-------+ +-----+---+---+ + +---+ | | | + +---+ | diphenhydrAMINE (BENADRYL) 12.5 | | | mg/5 mL liquid 25 mg 25 mg, | | | Oral, EVERY 4 HOURS PRN, Itching, | | | Starting 08/13/19 at 1205, | | | Oral route is preferred., | | | Post-op/Phase II | | + +---+ | | | + +---+ | diphenhydrAMINE (BENADRYL) | | | injection 12.5 mg 12.5 mg, | | | Intravenous, EVERY 4 HOURS PRN, | | | Itching, Starting 08/13/19 at | | | 1205, Oral route is preferred., | | | Post-op/Phase II | | + +---+ | | | + +---+ | diphenhydrAMINE (BENADRYL) | | | tablet 25 mg 25 mg, Oral, EVERY | | | 4 HOURS PRN, Itching, Starting | | | 08/13/19 at 1205, Oral route | | | is preferred., Post-op/Phase II | | + +---+ | | | + +---+ + +-------+ +--------+---+---+ | docusate sodium (COLACE) | Given | 08/14/19 | 100 mg | | | | capsule 100 mg 100 mg, Oral, 2 | | 20 8:15 | | | | | TIMES DAILY, First dose on Sun | | AM PDT | | | | | 08/13/19 at 1230, First line agent | | | | | | | for constipation, Post-op/Phase | | | | | | | II | | | | | | + +-------+ +--------+---+---+ +-------+ +--------+---+---+ | Given | 08/13/19 | 100 mg | | | | | 20 8:24 | | | | | | PM PDT | | | | +-------+ +--------+---+---+ | Given | 08/13/19 | 100 mg | | | | | 20 1:27 | | | | | | PM PDT | | | | +-------+ +--------+---+---+ +---+---+ | | | +---+---+ + +-------+ +-------+---+---+ | hydroCHLOROthiazide tablet 50 | Given | 08/13/19 | 50 mg | | | | mg 50 mg, Oral, DAILY, First | | 20 6:54 | | | | | dose (after last modification) on | | PM PDT | | | | | 08/13/19 at 1845 | | | | | | + +-------+ +-------+---+---+ +---+---+ | | | +---+---+ + +-------+ +---------+---+---+ | HYDROcodone-acetaminophen | Given | 08/14/19 | 0.5 | | | | (NORCO) 10-325 mg per tablet 1-2 | | 20 8:49 | tablets | | | | tablet 1-2 tablet, Oral, EVERY 4 | | AM PDT | | | | | HOURS PRN, Pain, Starting Wed | | | | | | | 08/13/19 at 1205, Post-op/Phase II | | | | | | + +-------+ +---------+---+---+ +-------+ + +---+---+ | Given | 08/13/19 | 1 tablet | | | | | 20 1:26 | | | | | | PM PDT | | | | +-------+ + +---+---+ +---+---+ | | | +---+---+ + +---------+ [...] + +---+---+ | | | +---+---+ + +---------+ +--------+-------+---+ | lactated ringers (LR) infusion | New Bag | 08/13/19 | 1,000 | 100 | | | at 100 mL/hr, Intravenous, FIXED | | 20 10:51 | mLs | mL/hr | | | VOLUME (see admin instruction), | | PM PDT | | | | | Starting 08/13/19 at 1230, For | | | | | | | 20 hours, 2 liters then | | | | | | | discontinue, Post-op/Phase II | | | | | | + +---------+ +--------+-------+---+ +---------+ +---+-------+---+ | New Bag | 08/13/19 | | 100 | | | | 20 12:34 | | mL/hr | | | | PM PDT | | | | +---------+ +---+-------+---+ +---+---+ | | | +---+---+ + +-------+ +-------+---+---+ | lisinopril (PRINIVIL,ZESTRIL) | Given | 08/13/19 | 40 mg | | | | tablet 40 mg 40 mg, Oral, DAILY, | | 20 6:54 | | | | | First dose (after last | | PM PDT | | | | | modification) on Sun08/13/19 at | | | | | | | 1845 | | | | | | + +-------+ +-------+---+---+ +---+---+ | | | +---+---+ + +-------+ +------+---+---+ | morphine injection 1-2 mg 1-2 | Given | 08/13/19 | 1 mg | | | | mg, Intravenous, EVERY 1 HOUR | | 20 12:34 | | | | | PRN, Pain, Starting Sun08/13/19 | | PM PDT | | | | | at 1205, If oral route not an | | | | | | | option. Slow IV push, not faster | | | | | | | than 2mg/minute. First dose must | | | | | | | be lowest dose, titrate to | | | | | | | effective dose by repeat of | | | | | | | lowest dose every 30 minutes prn | | | | | | | pain, may not exceed maximum dose | | | | | | | ordered per interval. Use | | | | | | | Pasero Sedation Scale., | | | | | | | Post-op/Phase II | | | | | | + +-------+ +------+---+---+ +---+---+ | | | +---+---+ + +-------+ +-------+---+---+ | nadolol (CORGARD) tablet 40 mg | Given | 08/13/19 | 40 mg | | | | 40 mg, Oral, NIGHTLY, First dose | | 20 8:24 | | | | | (after last reorder) on Sun | | PM PDT | | | | | 08/13/19 at 2100, Post-op/Phase II | | | | | | + +-------+ +-------+---+---+ +---+---+ | | | +---+---+ + +-------+ +-------+---+---+ | pantoprazole (PROTONIX) DR | Given | 08/14/19 | 40 mg | | | | tablet 40 mg 40 mg, Oral, DAILY | | 20 6:51 | | | | | BEFORE BREAKFAST, First dose on | | AM PDT | | | | | Ketty 08/14/19 at 0730, Indication: | | | | | | | GERD, Post-op/Phase II | | | | | | + +-------+ +-------+---+---+ +---+---+ | | | +---+---+ + +-------+ +--------+---+---+ | potassium chloride (Klor-Con | Given | 08/14/19 | 20 mEq | | | | M20) ER tablet 20 mEq 20 mEq, | | 20 8:15 | | | | | Oral, DAILY, First dose on Wed | | AM PDT | | | | | 08/13/19 at 1230, Post-op/Phase II | | | | | | + +-------+ +--------+---+---+ +-------+ +--------+---+---+ | Given | 08/13/19 | 20 mEq | | | | | 20 1:26 | | | | | | PM PDT | | | | +-------+ +--------+---+---+ +---+---+ | | | +---+---+ + +-------+ +--------+---+---+ | pramipexole (MIRAPEX) tablet | Given | 08/13/19 | 0.5 mg | | | | 0.5 mg 0.5 mg, Oral, DAILY, | | 20 8:24 | | | | | First dose on Sun08/13/19 at | | PM PDT | | | | | 2100, Post-op/Phase II | | | | | | + +-------+ +--------+---+---+ +---+---+ | | | +---+---+ + +-------+ +--------+---+---+ | senna (SENOKOT) tablet 8.6 mg | Given | 08/14/19 | 8.6 mg | | | | 8.6 mg, Oral, 2 TIMES DAILY, | | 20 8:15 | | | | | First dose on Sun08/13/19 at | | AM PDT | | | | | 1230, If docusate ineffective or | | | | | | | not ordered, Post-op/Phase II | | | | | | + +-------+ +--------+---+---+ +-------+ +--------+---+---+ | Given | 08/13/19 | 8.6 mg | | | | | 20 8:24 | | | | | | PM PDT | | | | +-------+ +--------+---+---+ | Given | 08/13/19 | 8.6 mg | | | | | 20 1:26 | | | | | | PM PDT | | | | +-------+ +--------+---+---+ +---+---+ | | | +---+---+ + +-------+ +-------+---+---+ | sertraline (ZOLOFT) tablet 50 | Given | 08/13/19 | 50 mg | | | | mg 50 mg, Oral, NIGHTLY, First | | 20 8:24 | | | | | dose on Sun08/13/19 at 2100, | | PM PDT | | | | | Post-op/Phase II | | | | | | + +-------+ +-------+---+---+ +---+---+ | | | +---+---+ + +-------+ +------+---+---+ | terazosin (HYTRIN) capsule 5 mg | Given | 08/13/19 | 5 mg | | | | 5 mg, Oral, NIGHTLY, First dose | | 20 8:24 | | | | | on 08/13/19 at 2100, | | PM PDT | | | | | Post-op/Phase II | | | | | | + +-------+ +------+---+---+ +---+---+ | | | +---+---+ documented in this encounter
--- OUTSIDE RECORDS SUMMARY | ~2019-11-12 | XMS | Encounter Summary ---
Demographics + + + | Address | [address] | | | [place] [address] | + + + | Home Phone | | + + + | Preferred Language | Unknown | + + + | Marital Status | | + + + | Jainism Affiliation | Unknown | + + + [...] Providers + +------+ + | Care Lead Advisor Name | Role | Phone | + +------+ + | Isaac Miranda MD | PCP | | + +------+ + Reason for Visit + + + | Reason | Comments | + + + | Follow-up | 14 Week PO | + + + Encounter Details +--------+---------+ + + + | Date | Type | Department | Care Team | Description | +--------+---------+ + + + | 05/21/ | Office | [facility] | Mahendra Luna MD | Spondylolisthesis of | | 2012 | Visit | NEUROSURGERY [address] | [address] | lumbar region | | | | [address] | [place] [address] | (Primary Dx); S/P | | | | [place] | [phone] | cervical spinal | | | | [address] | | fusion | | | | [phone] | | | +--------+---------+ + + + [...] + + + | Blood Pressure | 118/77 | 05/21/2012 1:12 PM | | | | | PDT | | + + + + + | Pulse | 58 | 05/21/2012 1:12 PM | | | | | PDT | | + + + + + | Temperature | - | - | | + + + + + | Respiratory Rate | 18 | 05/21/2012 1:12 PM | | | | | PDT | | + + + + + | Oxygen Saturation | - | - | | + + + + + | Inhaled Oxygen | - | - | | | Concentration | | | | + + + + + | Weight | 111.1 kg (245 lb) | 05/21/2012 1:12 PM | | | | | PDT | | + + + + + | Height | 177.8 cm (5' 10") | 05/21/2012 1:12 PM | | | | | PDT | | + + + + + | Body Mass Index | 35.15 | 05/21/2012 1:12 PM | | | | | PDT | | + + + + + documented in this encounter Progress Notes Mahendra Luna MD - 05/21/2012 3:07 PM PDTFormatting of this note might be different from t he original. Mahendra Luna MD [address] [facility], [address] [place] [address] FAX: NEUROSURGERY FOLLOW-UP CHIEF COMPLAINT: Chief Complaint Patient presents with Follow-up 14 Week PO HISTORY OF PRESENT ILLNESS: The patient is a 56 y.o. male that had a lumbar fusion by me a round 3 months ago and also has a history of a cervical fusion for severe myelopathy. He re turns and overall is doing fairly well. The patient complains of no neck pain. His spasms are getting better in his arms and legs. He does still have back and leg pains but this zenaida lly only occurs when he overdoes things. Most of the time, he feels he has improved. He is continuing to wean his narcotics but still using them daily (1-3 per day). PAST MEDICAL HISTORY: Past Medical History Diagnosis Date Cervical spondylosis with myelopathy Cervical radiculopathy C3-C7 Lumbar spondylosis Spondylolisthesis of lumbar region Lumbar facet arthropathy MULTILEVEL Lumbar degenerative disc disease Hypertension GERD (gastroesophageal reflux disease) Anxiety Tremor Restless leg syndrome Smokeless tobacco use PAST SURGICAL HISTORY: Past Surgical History Procedure Date Hernia repair Cervical fusion CURRENT MEDICATIONS: Current Outpatient Prescriptions Medication Sig Dispense Refill traMADol (ULTRAM) 50 mg tablet Take 1 tablet by mouth every 8 hours as needed for Pain. 60 tablet 2 oxyCODONE-acetaminophen (PERCOCET) 5-325 mg per tablet Take 1-2 tablets by mouth every 4 hours as needed for Pain. 90 tablet 0 finasteride (PROSCAR) 5 mg tablet Take 5 mg by mouth Daily. Lactulose SOLN Take 30 mLs by mouth [...] Hypertension Brother INTERIM PHYSICAL EXAMINATION: Blood pressure 118/77, pulse 58, resp. rate 18, height 1.778 m (5' 10"), weight 111.131 kg (245 lb). Body mass index is 35.15 kg/(m^2). GENERAL: Patrice Interiano is in no acute distress with unlabored respirations. SPINE: The patient s incisions are healing well without drainage, significant erythema, o r discharge in his low back and neck. EXTREMITIES: No lower extremity edema. NEUROLOGICAL EXAMINATION: MENTAL STATUS: The patient is awake, alert, and oriented. He follows simple and complex commands MOTOR EXAM: Motor strength is 5/5 in the lower extremities. He has some deficits of the pr oximal arm on the left still. SENSORY EXAM: The sensory examination improved from the preoperative exam. REFLEXES: Reflexes are decreasing from his preoperative history and physical. He remains 3 + in the lower extremities. RADIOGRAPHIC REVIEW: The patient s postoperative x-rays show stable instrumentation and alignment in his neck and low back and were reviewed with the patient today. Complete fusion has yet occurred in the neck or low back yet. ASSESSMENT: Encounter Diagnoses Name Primary? Spondylolisthesis of lumbar region Yes S/P cervical spinal fusion Past Medical History Diagnosis Date Cervical spondylosis with myelopathy Cervical radiculopathy C3-C7 Lumbar spondylosis Spondylolisthesis of lumbar region Lumbar facet arthropathy MULTILEVEL Lumbar degenerative disc disease Hypertension GERD (gastroesophageal reflux disease) Anxiety Tremor Restless leg syndrome Smokeless tobacco use PLAN: Overall, the patient is doing well. I was pleased to see at least some further improvement and expect more improvement with time. This was discussed with the patient today. I have increased the patient s activities further, and I would like the patient to continue to ad trinidad with activities as tolerated and as directed. I released him back to work once he com pletes his PT and completed paperwork for this today for him. I spent 30 minutes in visit with Patrice Interiano today with the majority of time spent counse lling the patient on his recovery and coordinating his future care. The patient will follow -up with me in around 3-4 months for re-evaluation. ELECTRONICALLY SIGNED BY: Mahendra Luna MD, 05/21/2012 15:11 documented in this encounter Plan of Treatment Not on filedocumented as of this encounter Results XR Lumbar Spine 2 or 3 Vw (08/20/2012 1:46 PM PDT) + + | Specimen | + + | | + + + + + | Narrative | Performed At | + + + | [facility] | [place] | | [address] [place] | [facility] | | [ rep [address]] [ rep [facility] | | st zip] Signed | - IMAGING | | | | | Patient Name: MADONNAJORGEPATRICE Victorino Physician: | | | : 1955 Age: 57 Sex: M Unit #: [id number] | | | Exam Date: 08/20/12 Location: [facility] | | | Report #: [id number] Page: | | | %(RAD)RES..mtdd.print.filter("pg") of %(RAD) | | | RES..mtdd.print.filter("tpg") | | | | | | Accession Number: [id number] | | | LUMBAR SPINE CLINICAL HISTORY: FOLLOWUP FUSION. | | | FINDINGS: AP and lateral views of the lumbar spine show | | | posterior pedicle screw and josie fixation from L4 to S1. Fixation | | | hardware is in stable position. Interbody spacers are seen in the L4-5 | | | and L5- S1 interspaces. These are also unchanged in appearance and | | | configuration. Alignment is normally maintained through the fused | | | segment and above. Vertebral body heights are normal. A sclerotic | | | focus is present in the left iliac wing. This is incompletely | | | evaluated on this examination, but appears to have been present on | | | multiple prior exams dating back to April,. | | | IMPRESSION: 1. STABLE, SATISFACTORY APPEARANCES OF L4-5, L5-S1 | | | POSTERIOR PEDICLE SCREW AND JOSIE AND INTERBODY FUSION. | | | 2. STABLE, PROBABLE BONE ISLAND IN THE LEFT ILIAC WING. IF CLINICALLY | | | PERTINENT, THIS COULD BE FURTHER EVALUATED WITH PELVIC IMAGING | | | AND/OR BONE SCANNING COMMENT: Dictated | | | Date/Time: 08/20/2012 13:46 Transcribed Date/Time: 08/20/2012 | | | 15:43 Orchid Superintendent: <<Signature | | | on File>> | | | | | | Dickson Armenta MD08/20/12 1734 <Electronically signed by | | | Dickson Armenta MD> Dickson Armenta MD 08/20/12 | | | 1346 Orchid Superintendent: [employer] Gpityxtlezvrp45/02/13 1543 | | | Mahendra Luna MD | | + + + + + + + + | Performing | Address | City[facility] | Phone Number | | Organization | | | | + + + + + | [facility] | [address] | [place] | [phone] | | [facility] | | [address] | | | - IMAGING | | | | + + + + + XR Cervical Spine 3 Vws or Less (08/20/2012 1:40 PM PDT) + + | Specimen | + + | | + + + + + | Narrative | Performed At | + + + | [facility] | [place] | | Department [address] [facility] [place] [place] | [facility] | | [ rep [address]] [ rep ct [facility] | | st zip] Signed | - IMAGING | | | | | Patient Name: PATRICE INTERIANO Physician: | | | ZULEYMA. : 1955 Age: 57 Sex: M Unit #: [id number] | | | Exam Date: 08/20/12 Location: [facility] | | | Report #: [id number] Page: | | | %(RAD)RES..mtdd.print.filter("pg") of %(RAD) | | | RES..mtdd.print.filter("tpg") | | | | | | Accession Number: [id number] | | | CERVICAL SPINE CLINICAL HISTORY: FOLLOWUP AFTER | | | CERVICAL DISKECTOMY AND FUSION. COMPARISON: 05/21/2012. | | | FINDINGS: AP and lateral views of the cervical spine | | | show an anterior compression plate and screws extending from C4 to | | | C7. Screws are present in each vertebral body. Interbody bone grafts | | | are present in the interspaces. Fixation hardware and bone graft | | | show a stable appearance with no adjacent bony changes. The disk | | | interspaces are still visualized. Alignment is normally maintained. | | | There is disk space narrowing at C7-T1 and at C3-4, similar to | | | prior. Adjacent soft tissues are normal. IMPRESSION: | | | 1. STABLE ANTERIOR CERVICAL AND DISCECTOMY CHANGES FROM C4 TO C7. | | | Dictated Date/Time: 08/20/2012 13:40 Transcribed | | | Date/Time: 08/20/2012 15:36 Orchid Superintendent: | | | <<Signature on File>> | | | | | | Dickson Armenta MD08/20/12 1734 <Electronically signed by | | | Dickson Armenta MD> Dickson Armenta MD 08/20/12 | | | 0660 Orchid Superintendent: [employer]18/02/13 1536 | | | Mahendra Luna MD | | + + + + + + + + | Performing | Address | City/State[facility] | Phone Number | | Organization | | | | + + + + + | [facility] | [address] | [place] | [phone] | | [facility] | | [address] | | | - IMAGING | | | | + + + + + documented in this encounter Visit Diagnoses + + | Diagnosis | + + | Spondylolisthesis of lumbar region - Primary Acquired spondylolisthesis | + + | S/P cervical spinal fusion Arthrodesis status | + + documented in this encounter
--- OUTSIDE RECORDS SUMMARY | ~2019-11-12 | XMS | Encounter Summary ---
Demographics + + + | Address | [address] | | | [place] [address] | + + + | Home Phone | | + + + | Preferred Language | Unknown | + + + | Marital Status | | + + + | Methodist Affiliation | Unknown | + + + | Race | White | + + + | Ethnic Group | Not or | + + + Author + + + | Author | [facility] | | | and [place] | + + + | Organization | [facility] | | | [...] Team Providers + +------+ + | Care Traffic Lieutenant Name | Role | Phone | + +------+ + | Isaac Miranda MD | PCP | | + +------+ + Encounter Details +--------+ + + + + | Date | Type | Department | Care Team | Description | +--------+ + + + + | 06/08/ | Orders Only | [facility] | Mahendra Luna MD | Spondylolisthesis of | | 2017 | | NEUROSURGERY [address] | [address] | lumbar region | | | | [address] | [place] [address] | (Primary Dx); Back | | | | [place], [place] | [phone] | pain, unspecified | | | | [address] | | back location, | | | | [phone] | | unspecified back | | | | | | pain laterality, | | | | | | unspecified | | | | | | chronicity | +--------+ + + + + Social [...] as of this encounter Plan of Treatment + +---------+--------+ + + | Name | Type | Priori | Associated Diagnoses | Order Schedule | | | | ty | | | + +---------+--------+ + + | XR Lumbar Spine 4 + | Imaging | Routin | Spondylolisthesis | Expected: 06/18/2016 | | Vw | | e | of lumbar region | (Approximate), | | | | | Back Pain, | Expires: 06/07/2017 | | | | | Unspecified Back | | | | | | Location, | | | | | | Unspecified Back | | | | | | Pain Laterality, | | | | | | Unspecified | | | | | | Chronicity | | + +---------+--------+ + + documented as of this encounter Visit Diagnoses + + | Diagnosis | + + | Spondylolisthesis of lumbar region - Primary Acquired spondylolisthesis | + + | Back pain, unspecified back location, unspecified back pain laterality, unspecified | | chronicity | + + documented in this encounter"
--- OUTSIDE RECORDS SUMMARY | ~2019-11-12 | XMS | Encounter Summary ---
Demographics + + + | Address | [address] | | | [place] [address] | + + + | Home Phone | | + + + | Preferred Language | Unknown | + + + | Marital Status | | + + + | Moravian Affiliation | Unknown | + + + | Race | White | + + + | Ethnic Group | Not or | + + + Author + + + | Author | [facility] | | | and Brianana | + + + | Organization | [facility] | | | [...] Team Providers + +------+ + | Care Insulation Worker Name | Role | Phone | + +------+ + | Santi Dumont MD | PCP | | + +------+ + Reason for Visit + + + | Reason | Comments | + + + | Hip Pain | left hip pain ONSET 1 YEAR | + + + | New Patient | establish care with Agapito Sarah | + + + Evaluate & Treat (Urgent) +--------+ + + + + + | Status | Reason | Specialty | Diagnoses / | Referred By | Referred To | | | | | Procedures | Contact | Contact | +--------+ + + + + + | Closed | Specialty | Orthopedic | Diagnoses | Julia, | [facility] | | | Services | Surgery | Primary | Santi Fleming MD | Orthopedic | | | Required | | localized | [address] | [address] | [address] | [address] | | | | | is of left | [place], | [place], | | | | | hip | [place] [address] | [place] [address] | | | | | | Phone: | Phone: | | | | | | [phone] | [phone] | | | | | | Fax: | Fax: | | | | | | [phone] | [phone] | +--------+ + + + + + Encounter Details +--------+---------+ + + + | Date | Type | Department | Care Team | Description | +--------+---------+ + + + | 03/15/ | Office | [facility] | Santi Dumont MD | Primary | | 2018 | Visit | ORTHOPEDIC SURGERY | [address] [facility] | osteoarthritis of | | | | [address] [facility] | [place], [place] | left hip (Primary | | | | [place], [place] | [address] | Dx); Pain of left | | | | [address] | | hip joint | | | | [phone] | Real Smith | | | | | | [address] | | | | | | [facility] | | | | | | [place] [address] | | | | | | [phone] | | | | | | | [...] + + + | Blood Pressure | - | - | | + + + + + | Pulse | - | - | | + + + + + | Temperature | 36.4 C (97.6 F) | 03/15/2017 10:39 AM | | | | | PST [...] + + + + | Weight | 113.3 kg (249 lb | 03/15/2017 10:39 AM | | | | 12.5 oz) | PST | | + + + + + | Height | 177.8 cm (5' 10") | 03/15/2017 10:39 AM | | | | | PST | | + + + + + | Body Mass Index | 35.84 | 03/15/2017 10:39 AM | | | | | PST | | + + + + + documented in this encounter H&P Real Burrows PA-C - 03/15/2017 11:00 AM PSTFormatting of this note might be differe nt from the original. ORTHOPEDICS [address] [place] [id number] FAX: [phone] Name: Patrice Interiano : 1955 Age: 61 y.o. Todays Date: 03/15/2017 Primary Care Provider: Santi Dumont MD Chief Complaint Patient presents with Hip Pain left hip pain ONSET 1 YEAR New Patient establish care with Agapito Smith History of Present Illness: Patrice Interiano is a new patient that presents with chronic left hip pain that has persisted for over the past 5 years but become more predominantly painful in the past year. He descri bes pain as occurring diffusely throughout the anterior/posterior aspects of the hip. Descr ibes that the pain is always there. Pain is increased with standing either for short or rashel g periods of time and most prominent with ambulation. He notes the pain in the hips is hear d and felt anytime he moves it. Pain relief is with Tylenol when necessary with having his pulled his leg distally or awy from his body when he is laying down. This helps to rel ieve the pressure that is at the left hip. Current level of pain rated at 5 out of 10. Past Medical History: Diagnosis Date Allergic rhinitis Anxiety 1999 Arthralgia of knee Patella, Tibia, Fibula Arthritis 2009 Benign prostatic hyperplasia without urinary obstruction Cervical radiculopathy C3-C7 Cervical spondylosis with myelopathy CHF (congestive heart failure) ([facility]) 11/2016 Clotting disorder ([facility]) 11/2016 Pulmonary embolisms Depression with anxiety GERD (gastroesophageal reflux disease) GI bleed 1999 Hypertension Left sided sciatica Low back pain Lumbar degenerative disc disease Lumbar facet arthropathy MULTILEVEL Lumbar spondylosis Osteoarthritis, generalized Restless leg syndrome Smokeless tobacco use Spondylolisthesis of lumbar region Tremor Past Surgical History: Procedure Laterality Date CERVICAL FUSION 06/2011 Dr. Luna; [facility] COLONOSCOPY 2010 EGD 1999 HERNIA REPAIR 08/03/2010 [place] [facility] 2007 Thrombosed hemorrhoid. KNEE ARTHROSCOPY 2014 Dr. Brothers; [place] LUMBAR FUSION 01/2012 Dr. Luna; [facility] SPINE SURGERY TONSILLECTOMY AND ADENOIDECTOMY TYMPANOPLASTY TUBES VASECTOMY No Known Allergies Current Outpatient Prescriptions Medication Sig Dispense Refill acetaminophen ([facility] 8 HOUR PAIN RELIEF) 650 MG CR tablet Take by mouth. albuterol (PROAIR HFA) 90 mcg/puff inhaler Inhale 2 puffs into the lungs every 6 hours as needed for Wheezing. 6.7 g 3 apixaban (ELIQUIS) 5 mg tablet Take 1 tablet by mouth 2 times daily. 60 tablet 4 furosemide (LASIX) 40 mg tablet Take 1 tablet by mouth Daily. 30 tablet 5 gabapentin (NEURONTIN) 300 mg capsule Take 1 capsule by mouth 4 times daily. 90 capsule lisinopril (PRINIVIL, ZESTRIL) 20 mg tablet Take [...] No current facility-administered medications for this visit. Family History Problem Relation Age of Onset Lung cancer Mother age 65 Cancer Mother Heart disease Father age 85 Diabetes, NIDDM Father Other (see comment) Father Tremor High blood pressure Father Diabetes Father Hearing loss Father Diabetes Sister Other (see comment) Sister Tremor High blood pressure Sister Diabetes Brother High blood pressure Brother High blood pressure Child No Known Problems Child Colon cancer Maternal Grandmother Diabetes Sister High blood pressure Sister Other (see comment) Sister High blood pressure Sister Social History Substance Use Topics Smoking status: Former Smoker Quit date: 02/18/2013 Smokeless tobacco: Former User Comment: Never smoked, quit smokeless tobacco Alcohol use No Review of Systems: Constitutional: Negative for fever, malaise, fatigue or weight loss. HENT: Negative for vision loss/changes. Positive for hearing loss, congestion and glasses and or contacts Respiratory: Negative for Shortness of breath or labored respirations . Positive for asthm a/wheezing and shortness of breath. Patient recently did have a pulmonary embolism in 2016; November and has been on blood thinning therapy for the last 3 months. He was told by his p hysician and respiratory physician that he would require 6 months of anticoagulative therapy Cardiovascular: Negative for chest pain, palpitations and leg swelling. Gastrointestinal: Positive for heartburn and hemorrhoids Musculoskeletal: Positive for back and shoulder pain, physical handicaps, osteophytes, join t pain and joint swelling Genitourinary: Negative for incontinence or dysuria Skin: Negative for rashs and wounds. Neurological: Negative for dizziness, fainting, or seizures. Psych: Negative for depression, nervousness or anxiety Imaging/Studies: Reviewed imaging studies today in our office Narrative XR HIP LEFT 2-3 VIEWS 01/31/2017 4:33 PM HISTORY: left hip pain. COMPARISON: 04/26/2011. FINDINGS: The left hip demonstrate advanced degenerative changes. Moderate degenerative changes are seen of the right hip. The femoral heads demonstrate normal round contours. These degenerative changes have progressed compared to 04/26/2011. Fusion hardware extend from the lumbar spine into level S1. Bone mineralization is normal. There are clips in the region of the scrotum. IMPRESSION - Advanced degenerative changes of left hip that has progressed. Dictated and Signed by: Sergio Santos MD Electronically signed: 01/31/2017 6:49 PM Physical Exam: Vitals: 03/15/17 1039 Temp: 36.4 C (97.6 F) TempSrc: Temporal Weight: 113.3 kg (249 lb 12.5 oz) Height: 1.778 m (5' 10") Constitutional: Pleasant and cooperative with exam. In no acute distress. Appears their stated age. Head: Normal cephalic and atraumatic. Eyes: EOM intact ENT: Adequate hearing noted bilaterally Cardiovacular: No lower extremity edema noted. Pulmonary: Non-labored respirations. Pt does not appear short of breath. Musculoskeletal: Pt ambulates with assistance of a walker. See in exam today he is obviou sly leaning off to the right side not putting much seated weight on the left hip. From seat ed position on exam table he is able to perform a gentle flexion and extension of the left h ip with some mild discomfort. He has prominent discomfort when performing even simple exter nal or internal rotation of the left hip. Describes pain as occurring diffusely throughout the anterior and posterior aspect of the hip. Neurologic: No obvious neurological abnormalities observed with patient. Skin: Warm and dry. No erythema or swelling noted at left hip Psych: Pt is alert, oriented. Answers questions promptly when asked Assessment/Plan: 1. Primary osteoarthritis left hip; advanced 2. Acute pulmonary emboli A. we reviewed plain film images today in cooperation for examination findings. Patient i s have very significant and advanced up to the changes of the left hip with clear bone-on-chris ne apposition and osteophyte formation. Examination reveals that this is the clear cause of his discomfort. We discussed treatment options consisting continued observation, pain medi cation, physical therapy, injection therapy and definitive treatment consisting of a total h ip replacement. Patient was hoping to receive injection therapy today. We discussed the op tions that would likely give him some pain relief consisting of injection versus surgical in terventions. Physical therapy would undoubtedly only increase the left hip pain. Injection therapy may give him some very short-term pain relief but undoubtedly would not provide any significant gains in range of motion and ultimately help him out in his daily activities se condary to the [id number] apposition. We also discussed treatment options existing of tot al hip arthroplasty. Unfortunately this is somewhat complicated as well because he did have a pulmonary embolism that occurred this past October but a month after spinal surgery. T his is being followed by his primary care provider and respiratory. He has been on both a t herapy for the past 3 months but does require 3 more months of treatment. I personally went and saw his primary care provider today who is at our medical complex and talked with him a bout this case. Given the advanced pathology at the left hip I did recommend that we pursue definitive treatment consisting of total hip arthroplasty. The left hip injection would no t provide him pain relief that he would find unsatisfactory given the [id number] appositio n. What I will do is submit for a left total hip arthroplasty to be performed in May 2017 ending medical clearance by his primary care provider in April once blood thinning therapy has been completed. We will contact the patient in regards to preoperative exam and surgery scheduling. B. Patient is advised that if they have any questions, comments or concerns to contact our office. I spent over 32 minutes face to face with the patient, with over 50% spent in counseling an d/or coordination of care regarding chronic left hip pain, review pathology and imaging stud ies were discussed and ulnar treatment plan. Discussed the intricacies this case at length and answered several questions posed by the patient.. Real Smith PA-C 03/15/2017 13:57 This history and physical was dictated using the [employer] voice recognition system. There may be minor errors in grammar. documented in t his encounter Plan of Treatment + + +--------+ + + | Name | Type | Priori | Associated Diagnoses | Order Schedule | | | | ty | | | + + +--------+ + + | * [facility] [place] | Outpatient | [facility] | Primary localized | Ordered: 02/02/2017 | | Orthopedic Surgery - | Referral | | osteoarthritis of | | | AMB Referral | | | left hip | | + + +--------+ + + documented as of this encounter Visit Diagnoses + + | Diagnosis | + + | Primary osteoarthritis of left hip - Primary Primary localized osteoarthrosis, pelvic | | region and thigh | + + | Pain of left hip joint | + + documented in this encounter
--- OUTSIDE RECORDS SUMMARY | ~2019-11-12 | XMS | Encounter Summary ---
Demographics + + + | Address | [address] | | | [place] [address] | + + + | Home Phone | | + + + | Preferred Language | Unknown | + + + | Marital Status | | + + + | Cheondoism Affiliation | Unknown | + + + [...] Team Providers + +------+ + | Care Microgrinder Operator Name | Role | Phone | + +------+ + | Isaac Miranda MD | PCP | | + +------+ + Reason for Visit + +--------+ + | Reason | Onset | Comments | | | Date | | + +--------+ + | Medication Refill | 02/20/ | | | | 2012 | | + +--------+ + Encounter Details +--------+--------+ + + + | Date | Type | Department | Care Team | Description | +--------+--------+ + + + | 02/20/ | Refill | [facility] [place] | Mahendra Luna MD | Medication Refill | | 2012 | | NEUROSURGERY [address] | [address] | | | | | [address] [facility] [address] | [place] [address] | | | | | [place] | [phone] | | | | | [address] | | | | | | [phone] | | | +--------+--------+ + + + [...] Notes Telephone Encounter - Hillary Dailey - 02/21/2012 11:46 AM PSTWife updated: Rx is ready for pick-up. Hillary Dailey elephone Encounter - Hillary Dailey - 02/21/2012 11:32 AM PSTS/P 02/14/12 lumbar fusion. His will pick this Rx up when ready. documented in this encounter Plan of Treatment Not on filedocumented as of this encounter Visit Diagnoses + + | Diagnosis | + + | S/P lumbar fusion - Primary Arthrodesis status | + + documented in this encounter"
--- OUTSIDE RECORDS SUMMARY | ~2019-11-12 | XMS | Encounter Summary ---
Demographics + + + | Address | [address] | | | [place] [address] | + + + | Home Phone | | + + + | Preferred Language | Unknown | + + + | Marital Status | | + + + | Restoration Affiliation | Unknown | + + + | Race | White | + + + | Ethnic Group | Not or | + + + Author + + + | Author | [facility] | | | and Brianana | + + + | Organization | [facility] | | [...] Team Providers + +------+ + | Care Machine Heel Builder Name | Role | Phone | + +------+ + | Isaac Miranda MD | PCP | | + +------+ + Reason for Visit +--------+--------+ + | Reason | Onset | Comments | | | Date | | +--------+--------+ + | Other | 04/29/ | OXYCODONE DOSAGE ISSUE | | | 2012 | | +--------+--------+ + Encounter Details +--------+ + + + + | Date | Type | Department | Care Team | Description | +--------+ + + + + | 04/29/ | Telephone | [facility] | Mahendra Luna MD | Other (OXYCODONE | | 2012 | | NEUROSURGERY [address] | [address] | DOSAGE ISSUE) | | | | [address] | [place] [address] | | | | | [place] | [phone] | | | | | [address] | | | | | | [phone] | | | +--------+ + + + [...] Notes Telephone Encounter - Hillary Dailey - 05/01/2012 8:24 AM Sagar (spouse) is advised per . She will relay message to Patrice. She requests that Rx refill be sent in the [facility] sent via certified mail#[phone]. Address verified at this time. Hillary Dailey elephone Encounter - Mahendra Luna MD - 04/30/2012 9:00 AM PDTTony must work on weaning these narcotics or he wi ll become dependent or addicted to them. I would recommend continuing on the 5/325 dose for this reason. Mahendra Luna elephone Encounter - [facility] ochoaHillary - 04/30/2012 8:51 AM PDTCurrently taking Oxycodone 5/325 mg-last refilled on 04/03/12. He was previously taking 7.5/325 mg-last refilled on 02/23/12. He is S/P lumbar fusion 02/13/13. ele phone Encounter - Neto Gross - 04/29/2012 12:49 PM PDTOXYCODONE/325MG/TAKE 1-2 TABS EVER Y 4-6 HOURS He is having issues sleeping so mainly is taking medication during nighttime due to discomf ort but also on days during physical therapy. He would like to increase the dosage to what i t was previously. Please advise. documented in this encount er Plan of Treatment Not on filedocumented as of this encounter Visit Diagnoses Not on filedocumented in this encounter"
--- OUTSIDE RECORDS SUMMARY | ~2019-11-12 | XMS | Encounter Summary ---
Demographics + + + | Address | [address] | | | [place] [address] | + + + | Home Phone | | + + + | Preferred Language | Unknown | + + + | Marital Status | | + + + | Jewish Affiliation | Unknown | + + + | Race | White | + + + | Ethnic Group | Not or | + + + Author + + + | Author | [facility] | | | and Brianana | + + + | Organization | [facility] | | [...] Team Providers + +------+ + | Care Access Consultant Name | Role | Phone | + +------+ + | Santi Dumont MD | PCP | | + +------+ + Reason for Visit + +--------+ + | Reason | Onset | Comments | | | Date | | + +--------+ + | Appointment | 09/17/ | | | | 2020 | | + +--------+ + Encounter Details +--------+ + + + + | Date | Type | Department | Care Team | Description | +--------+ + + + + | 09/17/ | Telephone | [facility] | Santi Dumont MD | Appointment | | 2019 | | MEDICINE [address] [place] [address] | [address] [place] [address] | | | | | [place], | [facility] [place] | | | | | [place] [address] | [address] | | | | | [phone] | | | +--------+ + + + [...] this encounter Miscellaneous Notes Telephone Encounter - Dora Burt - 09/19/2019 8:32 AM PDTLeft voicemail for patient asking for a return call to schedule an appointment. elephone Encounter - Nancy Wray RN - 09/18/2019 8:48 AM PDTPatient was last seen by Dr Dumont 03/03/19. Patient was scheduled to see Dr Torres on 09/03/19, and that appointment was cancelled by sherry lundberg/provider, but never rescheduled. Please reach out to patient to schedule with a new PCP. documented in this encounter Plan of Treatment Not on filedocumented as of this encounter Visit Diagnoses Not on filedocumented in this encounter"
--- OUTSIDE RECORDS SUMMARY | ~2019-11-12 | XMS | Encounter Summary ---
Demographics + + + | Address | [address] | | | [place] [address] | + + + | Home Phone [...] Team Providers + +------+ + | Care Personal Trainer Name | Role | Phone | [...] | Specialty | Orthopedic | Diagnoses | Barga, | Mannie, | | | Services | Surgery | Primary | Santi Fleming MD | Tay Yarbrough MD | | | Required | | osteoarthrit | [address] | [address] | | | | | is of right | [address] | [address] [place] | | | | | hip | [place], | [place], [place] | | | | | | [place] [address] | [address] | | | | | | Phone: | Phone: | | | | | | [phone] | [phone] | | | | | | Fax: | Fax: | | | | | | [phone] | [phone] | +--------+ + + + + + Reason for Visit + + + | Reason | Comments | + + + | Medicare Wellness | Wellness Physical Exam/Discuss right hip pain | + + + Encounter Details +--------+ + + + + | Date | Type | Department | Care Team | Description | +--------+ + + + + | 05/19/ | Virtual | [facility] | Santi Dumont MD | Preventative health | | 2020 | Office | MEDICINE [address] [place] [address] | [address] [place] [address] | care (Primary Dx); | | | Visit | KARRI VALLECILLO, | [place] | [place] | | | | [place] [address] | [address] | osteoarthritis of | | | | [phone] | | right hip; Saddle | | | | | | embolus of pulmonary | | | | | | artery with acute | | | | | | cor pulmonale, | | | | | | unspecified | | | | | | chronicity (HCC); | | | | | | Essential | | | | | | hypertension; | | | | | | Gastroesophageal | | | | | | reflux disease, | | | | | | esophagitis presence | | | | | | not specified; | | | | | | Obstructive sleep | | | | | | apnea with nocturnal [...] + + + | Blood Pressure | 125/82 | 05/20/2019 1:44 PM | | | | | PDT | | + + + + + | Pulse | 58 | 05/20/2019 1:44 PM | | | | | PDT | | + + + + + | Temperature | 35.9 C (96.7 F) | 05/20/2019 1:44 PM | | | | | PDT | | + + + + + | Respiratory Rate | - | - | | + + + + + | Oxygen Saturation | 92% | 05/20/2019 1:44 PM | | | | | PDT | | + + + + + | Inhaled Oxygen | - | - | | | Concentration | | | | + + + + + | Weight | 117.9 kg (260 lb) | 05/20/2019 1:44 PM | | | | | PDT | | + + + + + | Height | - | - | | + + + + + | Body Mass Index | 37.31 | 03/18/2019 3:38 PM | | | | | PST | | + + + + + documented in this encounter Progress Notes Santi Dumont MD - 05/20/2019 1:40 PM PDT Assessment & Plan 1. Preventative health care He is up-to-date on influenza vaccine, has not yet received pneumococcal vaccine. Colonosc opy due 2020 2. Primary osteoarthritis of right hip 3. Saddle embolus of pulmonary artery with acute cor pulmonale, unspecified chronicity (HCC ) 4. Essential hypertension 5. Gastroesophageal reflux disease, esophagitis presence not specified 6. Obstructive sleep apnea with nocturnal hypoxemia, CPAP compliant Recommendations: 1. Encourage lifestyle measures including daily activity for 30 minutes or greater and ef forts to lose weight. 2. Will make referral to orthopedic surgeon for possible right total hip replacement. 3. 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 4. Discussed options for primary care follow-up after my usp in July. Recommend Dr Edgar Garcias, or Dr. Beryl Hollingsworth Clinical discussion length: 11-20 min ([phone]) Patient has not been seen in office within the past 7 days, and outcome of this call is not to recommend soonest available office visit. Follow up Instructions: To establish with new PCP Santi Dumont MD Subjective: Patient ID: Patrice Interiano is a 63 y.o. male. CC: Preventative care, recurrent thromboembolism, hip osteoarthritis Participants: Patient Participant verbally confirmed the choice to initiate care by, and consents to receive care by Telephone. HPI: Telephone visit done today in lieu of of annual wellness exam due to coronavirus pandemic. He remains chronically anticoagulated with Eliquis because of recurrent thromboembolism. I n 2017, he had a saddle embolism of the pulmonary artery resulting in acute cor pulmonale, a s a complication of lumbar spinal surgery. Over the past year, he has had no thromboembolis m issues. He has tried to be more physically active, but has been unable to lose weight. He currentl y gets 20 500-50 500 steps a day. He requests a referral to Dr. Carter Chand for possible right total hip replacement. He is ambulating with a cane at present. He is compliant with CPAP use Current Outpatient Medications Medication Sig Dispense Refill acetaminophen (TYLENOL) 500 mg tablet Take 500 mg by mouth every 6 hours as needed for Pain. albuterol (PROAIR HFA) 90 mcg/puff inhaler Inhale 2 puffs into the lungs every 6 hours as needed for Wheezing. 6.7 g 3 ELIQUIS 5 MG tablet TAKE ONE TABLET BY MOUTH TWICE DAILY 60 tablet 0 lisinopril-hydrochlorothiazide (PRINZIDE,ZESTORETIC) 20-25 MG per tablet Take 2 tablets by mouth Daily. 180 tablet 3 loratadine (CLARITIN) 10 mg tablet Take 10 mg by mouth as needed. nadolol (CORGARD) 80 MG tablet Take one-half tablet once each day 15 tablet 5 omeprazole (PRILOSEC) 20 mg capsule Take 20 mg by mouth every morning (before breakfast ). potassium chloride 20 mEq CR tablet Take 1 tablet by mouth Daily. 90 tablet 3 pramipexole (MIRAPEX) 0.5 MG tablet TAKE ONE TABLET BY MOUTH EVERY DAY 30 tablet 3 sertraline (ZOLOFT) 50 mg tablet TAKE ONE TABLET BY MOUTH EVERY DAY 30 tablet 3 terazosin (HYTRIN) 5 mg capsule TAKE ONE CAPSULE BY MOUTH EVERY DAY 30 capsule 5 tiZANidine (ZANAFLEX) 4 mg tablet Take 1 tablet by mouth every 6 hours as needed for Mu scle spasms. 30 tablet 0 No current facility-administered medications for this visit. documented in this en counter Plan of Treatment + + +--------+ + + | Name | Type | Priori | Associated Diagnoses | Order Schedule | | | | ty | | | + + +--------+ + + | Avel Vallecillo | Outpatient | Routin | Primary | Ordered: 05/20/2019 | | Clinic Orthopedic - | Referral | e | osteoarthritis of | | | AMB Referral | | | right hip | | + + +--------+ + + documented as of this encounter Visit Diagnoses + + | Diagnosis | + + | Preventative health care - Primary Routine general medical examination at a health | | care facility | + + | Primary osteoarthritis of right hip Primary localized osteoarthrosis, pelvic region | | and thigh | + + | Saddle embolus of pulmonary artery with acute cor pulmonale, unspecified chronicity | | (HCC) | + + | Essential hypertension Unspecified essential hypertension | + + | Gastroesophageal reflux disease, esophagitis presence not specified | + + | Obstructive sleep apnea with nocturnal hypoxemia Obstructive sleep apnea (adult) | | (pediatric) | + + documented in this encounter"
--- OUTSIDE RECORDS SUMMARY | ~2019-11-12 | XMS | Encounter Summary ---
Demographics + + + | Address | [address] | | | [place] [address] | + + + | Home Phone [...] + + + | Author | [facility] | | | and [place] | + + + | Organization | [facility] | | | [...] Team Providers + +------+ + | Care Oliver Filter Operator Name | Role | Phone | + +------+ + | Santi Dumont MD | PCP | | + +------+ + Reason for Visit + + + | Reason | Comments | + + + | CPAP Follow Up | | + + + Encounter Details +--------+---------+ + + + | Date | Type | Department | Care Team | Description | +--------+---------+ + + + | 04/04/ | Office | [facility] | Tiesha Pérez MD | DICKSON (obstructive | | 2018 | Visit | SLEEP DISORDER [address] | [address] | sleep apnea) | | | | [address] [place] | [place] | (Primary Dx) | | | | [place] [address] | [address] | | | | | [phone] | | | +--------+---------+ + + + [...] + + + | Blood Pressure | 160/90 | 04/04/2017 2:31 PM | | | | | PST | | + + + + + | Pulse | 75 | 04/04/2017 2:31 PM | | | | | PST | | + + + + + | Temperature | - | - | | + + + + + | Respiratory Rate | 16 | 04/04/2017 2:31 PM | | | | | PST | | + + + + + | Oxygen Saturation | 90% | 04/04/2017 2:31 PM | | | | | PST | | + + + + + | Inhaled Oxygen | - | - | | | Concentration | | | | + + + + + | Weight | 113.9 kg (251 lb 1.7 | 04/04/2017 2:31 PM | | | | oz) | PST | | + + + + + | Height | - | - | | + + + + + | Body Mass Index | 36.03 | 03/20/2017 2:56 PM | | | | | PST | | + + + + + documented in this encounter Patient Instructions Patient Instructions Tiesha Pérez MD - 04/04/2017 2:45 PM PSTFormatting of this note villa ht be different from the original. - We will send a prescription for CPAP machine to your home care company. - Please start using your CPAP as directed. - Follow up with Dr. Pérez in 4 weeks and sooner if needed. - Insurance compliance criteria: Once you received your machine, you have 90 days in which you must use your machine for 30 consecutive days and for 70% of those 30 days you must use your machine for >= 4 hours. Continuous Positive Airway Pressure (CPAP) Your healthcare provider has prescribed continuous positive airway pressure (CPAP) therapy for you. A CPAPdevice helps you breathe better at night. The device sends air through your nose or mouth when you breathe in to keep your air passages open. CPAP is: Used most often to treat sleep apnea and some other problems. (Sleep apnea is a chronic condition with periods of sleep in which you briefly stop breathing.) Safe and very effective. But it takes time to get used to the mask. Your healthcare provider, nurse, or medical supplier will give you tips for wearing and car ing for your CPAP device. General guidelines Recommendations include the following: It's very important not togive up! It takes time to get used to wearing the mask at rust. Practice using your CPAP device during the day, especially whenever you take a nap. Remember, there are several different types of masks. If you can t get used to your ma sk, ask your provider or medical supply company about trying another style. If you have nasal stuffiness or dryness when using your CPAP device, talk with your prov ider or medical supply company. There are ways to ease these problems. For example, your pro vider may recommend using a moistening nasal spray. Or the medical supply company may recomm end a device with a humidifier. The goal is to use yourCPAP all night, every night, during all naps, and even when you travel. Keep your mask clean. Wash it with soap and water. Be sure to rinse the mask and tubing well with water to remove any soap. Let them air-dry completely before using. Make yourself comfortable when sleeping with CPAP. Try using extra pillows. Work with your medical supply company so that you know how to correctly use your CPAP. The company's patient intake representative will be able to help you: Use the CPAP correctly Troubleshoot any problems that come up Learn to clean and maintain the device Adjust to regular use of the CPAP The CPAP device settings are given as centimeters of water, or cm/H2O. Each person s pres sure settings are different. Your healthcare provider will tell you what settings to use. Ne wilbur change your CPAP pressure setting unless your provider tells you to. CPAP cm/H20 pressure when you breathe in Date Last Reviewed: 06/20/201519990090-8504 The [employer]. [address] [place] [address]. All righ ts reserved. This information is not intended as a substitute for professional medical care. Always follow your healthcare professional's instructions. documented in this encounter Progress Notes Tiesha Pérez MD - 04/04/2017 2:45 PM PST The patient comes in to discuss his sleep study results. My interpretation of the patient 's sleep study, which I have reviewed with the patient, is as follows: Unattended, Multiparameter, Sleep Apnea Test for Patrice Interiano performed on April 02. Identifying Information: Patrice Interiano is a 61 y.o. male who is referred for unattended, mu lti-parameter, sleep apnea test because of probable Obstructive Sleep Apnea.he has a histo ry of status post DVT and pulmonary embolismin November 2016, GERD and h/o of hiatal hernia , hypertension, lumbar radiculopathy status post lumbar fusion in October 2016, anxiety, e ssential tremor, and restless legs syndrome presenting with nocturnalhypoxemia for evaluat ion of obstructive sleep apnea. He had an overnight oximetry on room air on December 13, 2016 . It showed mean SPO2 at 86%, sarah SPO2 was 68%, and he had spent 407 minutes <= 88%. S tarted on oxygen 1.5 l/m at night. BMI: 35.7 Technical Information: The study was performed on April 02, 2017 using the [employer] equipment with [employer] Version 9 Software. The study was hand [...] signal excursion by 90% or greater of pre-han nt baseline using an oronasal thermal sensor, or an alternative apnea sensor and the duratio n of the 90% or greater drop in sensor signal is greater than or equal to 10 seconds. Obstructive Apnea: Event associated with continued or increased inspi ratory effort throughout the entire period of absent airflow. Central Apnea: Event associated with absent inspiratory effort throug hout the entire period of absent airflow. Because EEG is not monitored, Central Apneas canno t be scored with any degree of reliability on this type of sleep study. Mixed Apnea: Event associated with absent inspiratory effort in the i nitial portion of the event followed by resumption of inspiratory effort during the second p ortion of the event. Because EEG is not monitored, mixed apneas are not reliably scored on t his type of study. Hypopnea: The peak signal excursions drop by 30% or more of pre-event baseline u sing nasal pressure (diagnostic study), PAP device flow (titration study), or an alternative hypopnea sensor (diagnostic study). The duration of the 30% or greater drop in signal excur mallika must last for 10 seconds or longer. The event is associated with a 3% or greater oxygen desaturation from pre-event baseline or the event is associated with an arousal. Respiratory Event Related Arousal: Because EEG is not recorded, Respiratory Even t Related Arousal's cannot be enumerated. Results: Data [...] cm H2O followed by an overnight oximetry. Today, I discussed the above results in detail with patient and his . Discussed the ne xt step including CPAP titration study, or a trial of CPAP followed by overnight oximetry on CPAP. He is interested in the second option. He has already stopped using nocturnal oxyge n. I discussed with them that if his overnight oximetry on CPAP and room air showed residua l hypoxemia, we will need to perform a separate titration study. Insurance compliance criter ia was discussed. Vitals: 04/04/17 1431 BP: 160/90 Pulse: 75 Resp: 16 PainSc: 5 Plan: Start auto CPAP at 5-20 cm H2O with patient's preference mask. Follow-up with Dr. Pérez in 4 weeks and sooner if needed. I spent 15 minutes face to face with the patient, with over 50% spent in counseling and/or coordination of care regarding sleep apnea. documented in this enco unter Plan of Treatment Not on filedocumented as of this encounter Procedures + +--------+ + + + | Procedure Name | Priori | Date/Time | Associated Diagnosis | Comments | | | ty | | | | + +--------+ + + + | LABS - EXTERNAL SCAN | | 04/18/2017 | | Results for this | | | | 12:00 AM | | procedure are in the | | | | PST | | results section. | + +--------+ + + + documented in this encounter Results LABS - EXTERNAL SCAN (04/18/2017 12:00 AM PST) + + + | Narrative | Performed At | + + + | Ordered by an | | | unspecified provider. | | + + + documented in this encounter Visit Diagnoses + + | Diagnosis | + + | DICKSON (obstructive sleep apnea) - Primary Obstructive sleep apnea (adult) (pediatric) | + + documented in this encounter"
--- OUTSIDE RECORDS SUMMARY | ~2019-11-12 | XMS | Encounter Summary ---
Demographics + + + | Address | [address] | | | [place] [address] | + + + | Home Phone | | + + + | Preferred Language | Unknown | + + + | Marital Status | | + + + | Baptism Affiliation | Unknown | + + + | Race | White | + + + | Ethnic Group | Not or | + + + Author + + + | Author | [facility] | | | and [place] | + + + | Organization | [facility] | | | [...] Team Providers + +------+ + | Care It Project Manager Name | Role | Phone | + +------+ + | Isaac Miranda MD | PCP | | + +------+ + Encounter Details +--------+ + + + + | Date | Type | Department | Care Team | Description | +--------+ + + + + | 04/23/ | Documentati | [facility] | Mahendra Luna MD | | | 2012 | on | NEUROSURGERY [address] | | | | | [address] | [place] [address] | | | | | [place] | [phone] | | | | | [address] | | | | | | [phone] | | | +--------+ + + + [...] documented as of this encounter Progress Notes Mahendra Luna MD - 04/23/2012 3:13 PM JEAN MARIE found a identification printing machine setter error in my notes regardi ng Mr. Patrice Interiano. He states his injury occurred on April 25, 2011 and my notes from 05/31 i ndicate March 27. I have corrected the record to indicate that his injury occurred on 2011 to reflect the correct date as documented by the patient on his initial paperwo rk and requested by the patient's spouse. ELECTRONICALLY SIGNED BY: Mahendra Luna MD, 04/23/2012 15:15 documented in this encounter Plan of Treatment Not on filedocumented as of this encounter Visit Diagnoses Not on filedocumented in this encounter"
--- OUTSIDE RECORDS SUMMARY | ~2019-11-12 | XMS | Encounter Summary ---
Demographics + + + | Address | [address] | | | [place] [address] | + + + | Home Phone | | + + + | Preferred Language | Unknown | + + + | Marital Status | | + + + | Spiritism Affiliation | Unknown | + + + | Race | White | + + + | Ethnic Group | Not or | + + + Author + + + | Author | [facility] | | | and [place] | + + + | Organization | [facility] | | | and [...] Team Providers + +------+ + | Care Domestic Helper Name | Role | Phone | + +------+ + | Santi Dumont MD | PCP | | + +------+ + Encounter Details +--------+ + + + + | Date | Type | Department | Care Team | Description | +--------+ + + + + | 04/16/ | Episode | [facility] | Airam Hope, | | | 2017 | Changes | ORTHOPEDIC SURGERY | Store Leader | | | | | [address] | | | | | | [place] | | | | | | [address] | | | | | | [phone] | | | +--------+ + + + [...]
--- OUTSIDE RECORDS SUMMARY | ~2019-11-12 | XMS | Encounter Summary ---
Demographics + + + | Address | [address] | | | [place] [address] | + + + | Home Phone | | + + + | Preferred Language | Unknown | + + + | Marital Status | | + + + | Gnosticist Affiliation | Unknown | + + + [...] Team Providers + +------+ + | Care Director Of Religious Life Name | Role | Phone | + [...] Description | +--------+---------+ + + + | 07/04/ | Office | [facility] | Tiesha Pérez MD | [place] (obstructive | | 2018 | Visit | SLEEP DISORDER [address] | [address] | sleep apnea) | | | | [address] | [place] | (Primary Dx) | | | | [place] [address] | [id number] | | | | | [phone] | | | +--------+---------+ + + + [...] + + + | Blood Pressure | 140/80 | 07/04/2017 9:27 AM | | | | | PDT | | + + + + + | Pulse | 48 | 07/04/2017 9:27 AM | | | | | PDT | | + + + + + | Temperature | - | - | | + + + + + | Respiratory Rate | 16 | 07/04/2017 9:27 AM | | | | | PDT | | + + + + + | Oxygen Saturation | 94% | 07/04/2017 9:27 AM | | | | | PDT | | + + + + + | Inhaled Oxygen | - | - | | | Concentration | | | | + + + + + | Weight | 116.8 kg (257 lb 8 | 07/04/2017 9:27 AM | | | | oz) | PDT | | + + + + + | Height | - | - | | + + + + + | Body Mass Index | 36.95 | 06/07/2017 6:26 AM | | | | | PDT | | + + + + + documented in this encounter Progress Notes Tiesha Pérez MD - 07/04/2017 9:30 AM PDT Patrice Interiano is a 62 y.o. year old male is here for follow-up for sleep apnea. INTERVAL HISTORY The patient's last clinic visit was 05/03/17. He is accompanied by his . He had an overnight oximetry on room air on December 13, 2016. It showed mean SPO2 at 86 %, sarah SPO2 was 68%, and he had spent 407 minutes <= 88%. [facility] Last visit when I saw him he had already stopped his nocturnal supplemental oxygen. He had a home sleep apnea testing on April 02, 2017, demonstrating moderate to severe ob structive sleep apnea with RDI of 29.5. Mean oxygen oxygen saturation was 90%, sarah saturat ion was 84% , and patient sdate 33.3% of time (180minutes )below 90%. He was started on CPAP at 5-20 cm H2O. 05/09/17: "I called the patient to discuss the results of his overnight oximetry. He had an overnight oximetry on CPAP and room air on May 05, 2017. It showed mean SPO2 a t 91.6%, sarah SPO2 at 79%, and he had spent 10.5 minutes with SPO2 <= 88%. I discussed with him that we will need to perform a separate CPAP titration study to see if this is an accurate result, and in that case he will need bleed-in nocturnal supplemental o xygen. He would like to talk to his , and she will contact sleep clinic tomorrow." He had his hip surgery a month ago and his pain improved significantly. He though still wa lks with a walker. They say they decided not to proceed with CPAP titration study for now. He has been using his CPAP machineregularly toe he has not noticed much difference yet. He says he was so overwhelmed by the pain has when he had surgery insignificant difference in his pain, and his heart for him to notice any difference with CPAP. His though has not iced that he is not restless during sleep. His mask is comfortable. The air is stil too ho t for him, and upon further questioning he says their bedroom is the hottest part in their h ouse. PAP STATISTICS: DME Company: [facility] APAP: 5-20 cm Median p: 7.7 Max p: 12.6 Days not used: 030 Average daily usage: 6:16 % >= 4 hrs: 93% AHI: 1.2 PROBLEM LIST Patient Active Problem List Diagnosis Date Noted POA Obesity (BMI 35.0-39.9 without comorbidity) 06/07/2017 Unknown Preventative health care 02/04/2017 Unknown Acute deep vein thrombosis (DVT) of left lower extremity 201612/04/2016 Unknown Saddle embolus of pulmonary artery with acute cor pulmonale 201612/03/2016 Unknown Obstructive sleep apnea with nocturnal hypoxemia 12/01/2016 Unknown Lumbar radiculopathy 07/19/2016 Unknown Lumbar spinal stenosis 07/19/2016 Unknown Hypertension 201403/07/2014 Unknown Cervical spondylosis with myelopathy Unknown Cervical radiculopathy Unknown Spondylolisthesis of lumbar region Unknown Lumbar degenerative disc disease Unknown GERD (gastroesophageal reflux disease) Unknown Anxiety Unknown Restless leg syndrome Unknown Essential tremor 02/01/1968 Unknown ALLERGIES No Known Allergies MEDICATIONS Prior to Admission medications Medication Sig Start Date End Date Taking? Authorizing Provider acetaminophen (TYLENOL) 500 mg tablet Take 500 mg by mouth every 6 hours as needed for Pain . Yes Historical Provider, acetaminophen-codeine (TYLENOL #3) 300-30 mg per tablet Take 1 tablet by mouth every 6 hour s as needed for Pain. Yes Historical Provider, albuterol (PROAIR HFA) 90 mcg/puff inhaler Inhale 2 puffs into the lungs every 6 hours as n eeded for Wheezing. 03/14/17 Yes Santi Dumont MD ELIQUIS 5 MG tablet Take 5 mg by mouth 2 times daily. 04/05/17 Yes Historical Provider, furosemide (LASIX) 40 mg tablet Take 1 tablet by mouth Daily. 01/31/17 Yes Santi Dumont MD gabapentin (NEURONTIN) 300 mg capsule Take 1 capsule by mouth 4 times daily. Patient taking differently: Take 300 mg by mouth Daily. 03/14/17 Yes Santi Dumont MD lisinopril (PRINIVIL, ZESTRIL) 20 mg tablet Take 2 tablets by mouth Daily. 01/31/17 Yes Berenice Dumont MD loratadine (CLARITIN) 10 mg tablet Take 10 mg by mouth Daily. Yes Historical Provider, nadolol (CORGARD) 80 MG tablet Take 0.5 tablets by mouth Daily. 01/31/17 Yes Santi Dumont MD omeprazole (PRILOSEC) 20 mg capsule Take 20 mg by mouth every morning (before breakfast). Yes Historical Provider, POTASSIUM CHLORIDE PO Take 20 mEq by mouth Daily. Yes Historical Provider, pramipexole (MIRAPEX) 0.5 MG tablet Take 1 tablet by mouth Daily. 01/31/17 Yes Santi Hayes MD Senna 30 MG MISC Take 30 mg by mouth as needed. Yes Historical Provider, sertraline (ZOLOFT) 50 mg tablet Take 50 mg by mouth Daily. Yes Historical Provider, terazosin (HYTRIN) 5 mg capsule Take 1 capsule by mouth Daily. 01/31/17 Yes Santi Dumont MD tiZANidine (ZANAFLEX) 4 mg tablet Take 4 mg by mouth every 6 hours as needed for Muscle spa sms. Yes Historical Provider, PHYSICAL EXAM BP 140/80 | Pulse (!) 48 | Resp 16 | Wt 116.8 kg (257 lb 8 oz) | SpO2 94% | BMI 36.95 kg/m , GEN: Pleasant, appropriate affect, NAD. NEURO: Alert, normal gait. ASSESSMENT and PLAN Severe obstructive sleep apnea: He is on auto CPAP at 5-20 cm H2O with good adherence and o bjective response. Subjectively he has not noticed much difference but has been in part due to his other medical issues and his recent hip surgery. His has noticed that he is no t restlessness anymore during sleep. Cor aged him to continue to use his machine regularly for almost all hours of sleep, and give it more time to see results. Also, again discussed the health risks of untreated severe sleep apnea including increased risk of heart attack an d stroke. Also, again discussed the overnight oximetry which was started on CPAP and room a ir in April 2017. He spent only 10 minutes with SPO2 <= 88%, so it is associated with ab normal, but has improved significantly with CPAP. Discussed that I recommended a separate C PAP titration study to ensure optimal treatment of hypoxemia, however, it does not have to b e done urgently. Especially because patient wants to give it some more time after his surge ry. I agree with a CPAP titration study in 6 months from now. He is to call me to order th e sleep study at that time. Since he has some issue with CPAP air being too hot, I advised keeping his bedroom cool( th is is overall better for sleep). RTC in 6 months after sleep study is done, and sooner if needed. I spent 25 minutes face to face with the patient, with over 50% spent in counseling and/or coordination of care regarding sleep apnea. Thank you for the opportunity to participate in this patient's care. Portions of this chart may have been created with [employer] voice recognition software. Occasi onal wrong-word or [...]
--- OUTSIDE RECORDS SUMMARY | ~2019-11-12 | XMS | Encounter Summary ---
Demographics + + + | Address | [address] | | | [place] [address] | + + + | Home Phone | | + + + | Preferred Language | Unknown | + + + | Marital Status | | + + + | Christian Affiliation | Unknown | + + + [...] Team Providers + +------+ + | Care Cigar Brander Name | Role | Phone | + +------+ + | Santi Dumont MD | PCP | | + +------+ + Reason for Visit + +--------+ + | Reason | Onset | Comments | | | Date | | + +--------+ + | Treatment Plans | 05/09/ | | | | 2017 | | + +--------+ + Encounter Details +--------+ + + + + | Date | Type | Department | Care Team | Description | +--------+ + + + + | 05/09/ | Telephone | [facility] | Tiesha Pérez MD | Treatment Plans | | 2017 | | SLEEP DISORDER [address] | [address] | | | | | [address] | [place] | | | | | [place] [address] | [id number] | | | | | [phone] | | | +--------+ + + + [...] this encounter Miscellaneous Notes Telephone Encounter - Tiesha Pérez MD - 05/09/2017 4:22 PM PDTI called the patient to hernandez haley the results of his overnight oximetry. He [...] , and she will contact sleep clinic tomorrow.Elect ronically signed by Tiesha Pérez MD at 05/09/2017 4:23 PM PDTdocumented in this encounter Plan of Treatment Not on filedocumented as of this encounter Visit Diagnoses Not on filedocumented in this encounter"
--- OUTSIDE RECORDS SUMMARY | ~2019-11-12 | XMS | Encounter Summary ---
Demographics + + + | Address | [address] | | | [place] [address] | + + + | Home Phone | | + + + | Preferred Language | Unknown | + + + | Marital Status | | + + + | Orthodox Affiliation | Unknown | + + + | Race | White | + + + | Ethnic Group | Not or | + + + Author + + + | Author | [facility] | | | and [place] | + + + | Organization | [facility] | | [...] Team Providers + +------+ + | Care Falsework Builder Name | Role | Phone | [...] Description | +--------+--------+ + + + | 09/05/ | Refill | [facility] | Santi Dumont MD | Medication Refill | | 2019 | | MEDICINE [address] [place] [address] | [address] [place] [address] | | | | | [address] [place], | [place], [place] | | | | | [place] [address] | [id number] | | | | | [phone] | | | +--------+--------+ + + + [...]
--- OUTSIDE RECORDS SUMMARY | ~2019-11-12 | XMS | Encounter Summary ---
Demographics + + + | Address | [address] | | | [place] [address] | + + + | Home Phone | | + + + | Preferred Language | Unknown | + + + | Marital Status | | + + + | Temple Affiliation | Unknown | + + + [...] Team Providers + +------+ + | Care Steel Post Installer Name | Role | Phone | + +------+ + | Snati Dumont MD | PCP | | + +------+ + Reason for Visit + +--------+ + | Reason | Onset | Comments | | | Date | | + +--------+ + | Hospital Follow-up | 06/11/ | | | | 2017 | | + +--------+ + Encounter Details +--------+ + + + + | Date | Type | Department | Care Team | Description | +--------+ + + + + | 06/11/ | Telephone | [facility] | Gabriella Rogers, | Hospital Follow-up | | 2017 | | [facility] | PharmD [address] | | | | | [address] | [facility] | | [place] [address] | [place] [address] | | | | | [phone] | [phone] | | +--------+ + + + + [...] this encounter Miscellaneous Notes Telephone Encounter - Gabriella Rogers, PharmD - 06/11/2017 3:14 PM [facility] P sarai Call Date discharged: 06/09/17 Date of Procedure: 06/07/17 Procedure Performed: L NIRAJ Education done/topics reviewed: 1. Health Status (better/worse/same?)- Doing very well. 2. Diagnosis education- reviewed pts knowledge of primary diagnosis and provided additional education. - Are you up and walking? Yes - Feeling the start of an infection? No 3. Medication Reconciliation - Medications reconciled over the phone with patient. - VTE prophylaxis: Apixaban 5 mg BID - Filled [place] but has not needed it. Has used Tylenol #3 a couple times (left over from previous prescription) and acetaminophen 500 mg as needed, with good results. Very conscien tious about not exceeding 4,000 mg of acetaminophen from all sources daily. - Taking gabapentin one tablet each morning (not four times daily; this dose controls esse ntial tremor well.) - Has not yet needed to use albuterol inhaler, but will probably be doing so with allergy season coming up. 4. Pain Assessment- - Current pain is well-controlled with minimal narcotics. - Sedation assessment: Pt reports that during daytime hours, they are not sleepy. - Side Effects: Pt reports the following side effects: none - Are your bowels moving? Yes -Signs of a DVT? No 5. Reminded pt of scheduled follow-up appointment. 6. Reviewed what do in emergency as well as a non-emergent situation. Verified pt has doct or's contact information. Date of follow-up appointment with surgeon: 06/15 @[address] Chand Phone call made by: Gabriella Rogers PharmD 06/11/2017 15:29 documented in thi s encounter Plan of Treatment Not on filedocumented as of this encounter Visit Diagnoses Not on filedocumented in this encounter"
--- OUTSIDE RECORDS SUMMARY | ~2019-11-12 | XMS | Encounter Summary ---
Demographics + + + | Address | [address] | | | [place] [address] | + + + | Home Phone | | + + + | Preferred Language | Unknown | + + + | Marital Status | | + + + | Spiritism Affiliation | Unknown | + + + | Race | White | + + + | Ethnic Group | Not or | + + + Author + + + | Author | [facility] | | | and Brianana | + + + | Organization | [facility] | | [...] Team Providers + +------+ + | Care Photographer Still Name | Role | Phone | + +------+ + | Santi Dumont MD | PCP | | + +------+ + Reason for Referral Diagnostic/Screening (Routine) +--------+--------+ + + + + | Status | Reason | Specialty | Diagnoses / | Referred By | Referred To | | | | | Procedures | Contact | Contact | +--------+--------+ + + + + | Closed | | Radiology | Diagnoses | [place], | [facility] | | | | | Right-sided | Santi Fleming MD | [address] | | | | | heart | [address] | [place], | | | | | failure, | STREET | [place] | | | | | unspecified | [place], | [address] | | | | | HF | [place] [address] | Phone: | | | | | chronicity | Phone: | [phone] | | | | | ([facility]) | [phone] | Fax: | | | | | Procedures | Fax: | [phone] | | | | | ECHO | [phone] | | | | | | Complete | | | +--------+--------+ + + + + Reason for Visit Diagnostic/Screening (Routine) +--------+--------+ + + + + | Status | Reason | Specialty | Diagnoses / | Referred By | Referred To | | | | | Procedures | Contact | Contact | +--------+--------+ + + + + | Closed | | Radiology | Diagnoses | [place], | [facility] | | | | | Right-sided | Santi Fleming MD | [address] | | | | | heart | [address] | [place], | | | | | failure, | STREET | [place] | | | | | unspecified | [place], | [address] | | | | | HF | [place] [address] | Phone: | | | | | chronicity | Phone: | [phone] | | | | | (HCC) | [phone] | Fax: | | | | | Procedures | Fax: | [phone] | | | | | ECHO | [phone] | | | | | | Complete | | | +--------+--------+ + + + + Encounter Details +--------+ + + + + | Date | Type | Department | Care Team | Description | +--------+ + + + + | 06/05/ | Hospital | [facility] | Santi Dumont MD | Right-sided heart | | 2019 | Encounter | [facility]CHO [address] | [address] [facility] | failure, unspecified | | | | [address] [place] | [place] | HF chronicity (HCC) | | | | [place] [address] | [address] | | | | | [phone] | | | +--------+ + + + [...] TAKE ONE TABLET BY | 60 | 4 | 06/01/19 | | | tablet | MOUTH TWICE DAILY | tablet | | 19 | 9 | + + + +---------+ + + | gabapentin | Take 300 mg by mouth | | 0 | | | | (NEURONTIN) 300 mg | as needed. | | | | 0 | | capsule | | | | | | + + + +---------+ + + | | Take 2 tablets by | 180 | 3 | 05/16/19 | | | hydroCHLOROthiazide | mouth Daily. | tablet | | 19 | 9 | | 25 mg tablet | | | | | | + + + +---------+ + + | lisinopril | Take 1 tablet by | 90 | 3 | 05/16/19 | | | (PRINIVIL,ZESTRIL) | mouth Daily. | tablet | | 19 | 9 | | 40 MG tablet | | | | | | + + + +---------+ + + | nadolol (CORGARD) | Take one-half tablet | 15 | 4 | 02/27/19 | | | 80 MG tablet | once each day | tablet | | 19 | 9 | + + + +---------+ + + | potassium chloride | Take 1 tablet by | 90 | 3 | 09/21/19 | | | 20 mEq CR tablet | mouth Daily. | tablet | | 18 | 9 | + + + +---------+ + + | pramipexole | Take one tablet by | 30 | 3 | 02/27/19 | | | (MIRAPEX) 0.5 MG | mouth every day | tablet | | 19 | 9 | | tablet | | | | | | + + + +---------+ + + | sertraline | TAKE ONE TABLET BY | 30 | 5 | 12/29/19 | | | (ZOLOFT) 50 mg | MOUTH EVERY DAY | tablet | | 18 | 9 | | tablet | | | | | | + + + +---------+ + + | terazosin (HYTRIN) | Take one capsule by | 30 | 5 | 02/08/20 | | | 5 mg capsule | mouth every day | capsule | | 18 | 9 | + [...] | + +--------+ + + + | ECHO COMPLETE | Routin | 06/05/2018 | Right-sided heart | Results for this | | | e | 2:52 PM | failure, unspecified | procedure are in the | | | | PDT | HF chronicity (HCC) | results section. | + +--------+ + + + documented in this encounter Results ECHO Complete (06/05/2018 2:52 PM PDT) + +--------+ + + + | Component | Value | Ref Range | Performed | Pathologist | | | | | At | Signature | + +--------+ + + + | Patient | 263 | | [facility] | | | Weight | | | | | | (lbs) | | | | | + +--------+ + + + | Patient | 5'10" | | [facility] | | | Height | | | | | + +--------+ + + + | LVIDd | 4.67 | cm | [facility] | | + +--------+ + + + | FS | 38 | % | [facility] | | + +--------+ + + + | LA volume | 83.41 | mL | [facility] | | + +--------+ + + + | Ascending | 3.27 | cm | [facility] | | | aorta | | | | | + +--------+ + + + | Aortic arch | 3.5 | cm | [facility] | | + +--------+ + + + | AV mean | 4.41 | mmHg | [facility] | | | gradient | | | | | + +--------+ + + + | MV Area by | 3.64 | cm2 | [facility] | | | P 1/2 | | | | | | method | | | | | + +--------+ + + + | IVRT | 111.88 | msec | [facility] | | + +--------+ + + + | LVOT peak | 108.53 | cm/s | [facility] | | | juan pablo | | | | | + +--------+ + + + | LVOT peak | 24.07 | cm | [facility] | | | VTI | | | | | + +--------+ + + + | AV peak juan pablo | 139 | cm/s | [facility] | | + +--------+ + + + | AV VTI | 31.97 | cm | [facility] | | + +--------+ + + + | AV peak | 7.73 | mmHg | [facility] | | | gradient | | | | | + +--------+ + + + | MV Pressure | 60.43 | msec | [facility] | | | 1/2 time | | | | | + +--------+ + + + | LA Volume | 36 | mL/m2 | [facility] | | | Index | | | | | + +--------+ + + + | AV LVOT | 4.71 | mmHg | [facility] | | | Peak | | | | | | Gradient | | | | | + +--------+ + + + | AV LVOT | 2.12 | mmHg | [facility] | | | Mean | | | | | | Gradient | | | | | + +--------+ + + + | TR Peak | 20 | mmHg | [facility] | | | Gradient | | | | | + +--------+ + + + | TR Velocity | 224.89 | cm | [facility] | | + +--------+ + + + | LV | 7.66 | cm | [facility] | | | Diastolic | | | | | | Length 4C | | | | | + +--------+ + + + | LV Systolic | 12.47 | cm2 | [facility] | | | Area PSAX | | | | | + +--------+ + + + | LV | 70 | % | [facility] | | | Tyler's | | | | | | Biplane EF | | | | | + +--------+ + + + | AV | 91.17 | msec | [facility] | | | Acceleratio | | | | | | n Time | | | | | + +--------+ + + + | LV ED | 98.08 | ml | [facility] | | | Volume | | | | | | (Tyler's) | | | | | + +--------+ + + + | LV ED | 42 | ml/m2 | [facility] | | | Volume | | | | | | Index | | | | | + +--------+ + + + | LV ES | 28.63 | ml | [facility] | | | Volume | | | | | + +--------+ + + + | LVOT Mean | 66.01 | cm/s | [facility] | | | Velocity | | | | | + +--------+ + + + | MV A' | 6.94 | cm/s | [facility] | | | Septal | | | | | | Velocity | | | | | + +--------+ + + + | MV E' | 10.95 | cm/s | [facility] | | | Septal | | | | | | Velocity | | | | | + +--------+ + + + | MV | 417.64 | cm/s2 | [facility] | | | Deceleratio | | | | | | n [place] | | | | | + +--------+ + + + | MV | 208.36 | msec | [facility] | | | Deceleratio | | | | | | n Time | | | | | + +--------+ + + + | MV E/A | 1.5 | | [facility] | | | Ratio | | | | | + +--------+ + + + | MV Peak | 58.18 | cm/s | [facility] | | | A-Wave | | | | | + +--------+ + + + | MV Peak | 87.51 | cm/s | [facility] | | | E-Wave | | | | | + +--------+ + + + | AV Mean | 100.19 | cm/s | [facility] | | | Velocity | | | | | + +--------+ + + + | LA/Aorta | 1.21 | | [facility] | | | Ratio | | | | | + +--------+ + + + | LA Area | 26.11 | cm2 | [facility] | | + +--------+ + + + | MV E/E | 7.99 | | [facility] | | | SEPTAL | | | | | + +--------+ + + + | LA Major | 0.3197 | cm | [facility] | | + +--------+ + + + | LV ES | 12 | ml/m2 | [facility] | | | Volume | | | | | | Index | | | | | + +--------+ + + + | LV Area | 27.31 | cm2 | [facility] | | | Diastolic | | | | | + +--------+ + + + | Aortic Root | 3.73 | cm | [facility] | | | Diameter | | | | | + +--------+ + + + | IVS | 1.16 | cm | [facility] | | | Diastolic | | | | | | Thickness | | | | | | MM | | | | | + +--------+ + + + | LVPW | 1.11 | cm | [facility] | | | Diastolic | | | | | | Thickness | | | | | | MM | | | | | + +--------+ + + + | IVS | 1.42 | cm | [facility] | | | Systolic | | | | | | Thickness | | | | | | MM | | | | | + +--------+ + + + | LV Systolic | 2.89 | cm | [facility] | | | Diameter | | | | | | MM | | | | | + +--------+ + + + | LVPW | 1.64 | cm | [facility] | | | Systolic | | | | | | Thickness | | | | | | MM | | | | | + +--------+ + + + | AV Cusp | 2.49 | cm | [facility] | | | Seperation | | | | | | MM | | | | | + +--------+ + + + | LA Systolic | 4.53 | cm | [facility] | | | Diameter | | | | | | MM | | | | | + +--------+ + + + | TAPSE | 2.6 | cm | [facility] | | + +--------+ + + + | LVEF-TTE | 70 | | [facility] | | | TRANSTHORAC | | | | | | IC ECHO | | | | | + +--------+ + + + + + | Specimen | + + | | + + + + --+ | Narrative | Performed At | + + --+ | Transthoracic | [facility] | | Echocardiography Report (TTE) Demographics Patient Name AMISHA | | | PATRICE ONEILL Room Number Patient Number [id number] Date of | | | Study 06/05/2018 Visit Number [id number] | | | Referring Physician JULIA | | | SANTI Fleming Number Date of 1955 Proposal Lead Writer | | | KWASI RICKETTS Age 62 year(s) | | | Interpreting LUISITO VILLASEÑOR MD | | | Associate Professor Of Chemistry JULIA | | | SANTI Fleming Gender Male 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 Procedure dateDate: | | | 06/05/2018Start: 02:03 PM Technical Quality: Adequate | | | visualizationStudy Location: Echo Lab Patient Status: RoutineHeight: | | | 70 inchesWeight: 263 poundsBSA: 2.34 m^2BMI: 37.74 kg/m^2Rhythm: | | | Normal Sinus RhythmHR: 60 bpm ConclusionsSummaryLeft ventricle is | | | normal in size and function. Ejection fraction isestimated at | | | 65-70%.Diastolic parameters are within normal limits.Mitral valve is | | | mildly thickened with trace insufficiency.Structurally normal | | | tricuspid valve with mild insufficiency and peakvelocity consistent | | | with normal pulmonary pressures.Left atrium is mildly enlarged.Aortic | | | root is mildly enlarged. | | | Signature | | | | | | PM | | | -------- FindingsMitral ValveMitral valve is mildly thickened with | | | trace insufficiency.Aortic ValveAortic valve is trileaflet without | | | significant stenosis or regurgitation.Tricuspid ValveStructurally | | | normal tricuspid valve with mild insufficiency and peakvelocity | | | consistent with normal pulmonary pressures.Pulmonic ValveNormal | | | pulmonic valve structure and function. Normal pulmonary valve andRVOT | | | flow by color and Doppler flow imaging.Left AtriumLeft atrium is | | | mildly enlarged.Left VentricleLeft ventricle is normal in size and | | | function. Ejection fraction isestimated at 65-70%.Diastolic parameters | | | are within normal limits.Right AtriumNormal right atrial size.Right | | | VentricleNormal right ventricular size.Right ventricle global systolic | | | function is normal.TAPSE = cm.Pericardial EffusionNo evidence of | | | pericardial effusion.Pleural EffusionNo evidence of pleural | | | effusion.MiscellaneousAortic root is mildly enlarged.IVC is not well | | | seen. Valves Mitral Valve Peak E-Wave: 87.51 cm/s Peak A-Wave: 58.18 | | | cm/s Tissue Doppler Septal e' Velocity: 10.95 cm/s Septal E/e' | | | Ratio: Aortic Valve Peak Velocity: 139 cm/s Mean | | | Gradient: 4.41 mmHg Peak Gradient: 7.73 mmHg Tricuspid Valve TR | | | Velocity: 224.89 cm/s LVOT Peak Velocity: 108.53 cm/s Structures | | | Left Atrium LA A/P Dimension: 4.53 cm LA | | | Area: 26.11 cm^2 LA/Aorta:1.21 | | | LA Volume: 83.41 ml LA Vol/BSA Index: 36 mL/m^2 LA Major:0.3197 | | | Left Ventricle Diastolic Dimension: 4.67 cm Systolic | | | Dimension: 2.89 cm Septum Diastolic: 1.16 cm PW Diastolic: 1.11 cm EF | | | Lpwbfdynp06% EF Calculated: 70% Miscellaneous Aorta Aortic Root: | | | 3.73 cm Ascending Aorta: 3.27 cm | | | | | | | | |Findings | | |Mitral Valve | | |Mitral valve is mildly thickened with trace insufficiency. | | |Aortic Valve | | |Aortic valve is trileaflet without significant stenosis or regurgitation. | | |Tricuspid Valve | | |Structurally normal tricuspid valve with mild insufficiency and peak | | |velocity consistent with normal pulmonary pressures. | | |Pulmonic Valve | | |Normal pulmonic valve structure and function. Normal pulmonary valve and | | |RVOT flow by color and Doppler flow imaging. | | |Left Atrium | | |Left atrium is mildly enlarged. | | |Left Ventricle | | |Left ventricle is normal in size and function. Ejection fraction is | | |estimated at 65-70%. | | |Diastolic parameters are within normal limits. | | |Right Atrium | | |Normal right atrial size. | | |Right Ventricle | | |Normal right ventricular size. | | |Right ventricle global systolic function is normal. | | |TAPSE = cm. | | |Pericardial Effusion | | |No evidence of pericardial effusion. | | |Pleural Effusion | | |No evidence of pleural effusion. | | |Miscellaneous | | |Aortic root is mildly enlarged. | | |IVC is not well seen. | | | | | |Valves | | | | | | Mitral Valve | | | | | | Peak E-Wave: 87.51 cm/s | | | Peak A-Wave: 58.18 cm/s | | | | | | Tissue Doppler | | | | | | Septal e' Velocity: 10.95 cm/s | | | Septal E/e' Ratio: | | | | | | Aortic Valve | | | | | | Peak Velocity: 139 cm/s Mean Gradient: 4.41 mmHg | | | Peak Gradient: 7.73 mmHg | | | | | | Tricuspid Valve | | | | | | TR Velocity: 224.89 cm/s | | | | | | LVOT | | | | | | Peak Velocity: 108.53 cm/s | | | | | |Structures | | | | | | Left Atrium | | | | | | LA A/P Dimension: 4.53 cm LA Area: 26.11 cm^2 | | | LA/Aorta:1.21 LA Volume: 83.41 ml | | | LA Vol/BSA Index: 36 mL/m^2 | | | LA Major:0.3197 | | | | | | Left Ventricle | | | | | | Diastolic Dimension: 4.67 cm Systolic Dimension: 2.89 cm | | | Septum Diastolic: 1.16 cm | | | PW Diastolic: 1.11 cm | | | EF Snshinrbk60% | | | EF Calculated: 70% | | | | | | Miscellaneous | | | | | | Aorta | | | | | | Aortic Root: 3.73 cm | | | Ascending Aorta: 3.27 cm | | | | | + + --+ + + | Procedure Note | + + | Francisco, Rad Results In - 06/05/2018 8:19 PM PDT Transthoracic Echocardiography Report | | (TTE) Demographics Patient Name AMISHA ONEILL Room Number Patient Number | | [id number] Date of Study 06/05/2018 Visit Number [id number] | | Referring Physician JULIA Fleming Number Date of | | 1955 Proposal Lead Writer KWASI RICKETTS Age 62 | | year(s) Interpreting LUISITO VILLASEÑOR MD | | Associate Professor Of Chemistry JULIA Fleming Gender Male Nurse | | Stress TechnicianProcedureType of Study TTE procedure: ECHO | | Complete.Procedure dateDate: 06/05/2018Start: 02:03 PMTechnical Quality: Adequate | | visualizationStudy Location: Echo LabPatient Status: RoutineHeight: 70 inchesWeight: 263 | | poundsBSA: 2.34 m^2BMI: 37.74 kg/m^2Rhythm: Normal Sinus RhythmHR: 60 | | bpmConclusionsSummaryLeft ventricle is normal in size and function. Ejection fraction | | isestimated at 65-70%.Diastolic parameters are within normal limits.Mitral valve is | | mildly thickened with trace insufficiency.Structurally normal tricuspid valve with mild | | insufficiency and peakvelocity consistent with normal pulmonary pressures.Left atrium is | | mildly enlarged.Aortic root is mildly | | enlarged.Signature | | ------ | | 08:19 | | PM FindingsMi | | tral ValveMitral valve is mildly thickened with trace insufficiency.Aortic ValveAortic | | valve is trileaflet without significant stenosis or regurgitation.Tricuspid | | ValveStructurally normal tricuspid valve with mild insufficiency and peakvelocity | | consistent with normal pulmonary pressures.Pulmonic ValveNormal pulmonic valve structure | | and function. Normal pulmonary valve andRVOT flow by color and Doppler flow | | imaging.Left AtriumLeft atrium is mildly enlarged.Left VentricleLeft ventricle is normal | | in size and function. Ejection fraction isestimated at 65-70%.Diastolic parameters are | | within normal limits.Right AtriumNormal right atrial size.Right VentricleNormal right | | ventricular size.Right ventricle global systolic function is normal.TAPSE = | | cm.Pericardial EffusionNo evidence of pericardial effusion.Pleural EffusionNo evidence | | of pleural effusion.MiscellaneousAortic root is mildly enlarged.IVC is not well | | seen.Valves Mitral Valve Peak E-Wave: 87.51 cm/s Peak A-Wave: 58.18 cm/s Tissue Doppler | | Septal e' Velocity: 10.95 cm/s Septal E/e' Ratio: Aortic Valve Peak Velocity: 139 cm/s | | Mean Gradient: 4.41 mmHg Peak Gradient: 7.73 mmHg Tricuspid Valve TR | | Velocity: 224.89 cm/s LVOT Peak Velocity: 108.53 cm/sStructures Left Atrium LA A/P | | Dimension: 4.53 cm LA Area: 26.11 cm^2 LA/Aorta:1.21 | | LA Volume: 83.41 ml LA Vol/BSA Index: 36 mL/m^2 LA Major:0.3197 Left Ventricle | | Diastolic Dimension: 4.67 cm Systolic Dimension: 2.89 cm Septum Diastolic: 1.16 | | cm PW Diastolic: 1.11 cm EF Rrhkiakdo11% EF Calculated: 70% Miscellaneous Aorta Aortic | | Root: 3.73 cm Ascending Aorta: 3.27 cm | |estimated at 65-70%. | |Diastolic parameters are within normal limits. | |Mitral valve is mildly thickened with trace insufficiency. | |Structurally normal tricuspid valve with mild insufficiency and peak | |velocity consistent with normal pulmonary pressures. | |Left atrium is mildly enlarged. | |Aortic root is mildly enlarged. | | | |Signature | | | | Electronically signed by LUISITO VILLASEÑOR MD(Interpreting physician) on | | 06/05/2018 08:19 PM | | | | | |Findings | |Mitral Valve | |Mitral valve is mildly thickened with trace insufficiency. | |Aortic Valve | |Aortic valve is trileaflet without significant stenosis or regurgitation. | |Tricuspid Valve | |Structurally normal tricuspid valve with mild insufficiency and peak | |velocity consistent with normal pulmonary pressures. | |Pulmonic Valve | |Normal pulmonic valve structure and function. Normal pulmonary valve and | |RVOT flow by color and Doppler flow imaging. | |Left Atrium | |Left atrium is mildly enlarged. | |Left Ventricle | |Left ventricle is normal in size and function. Ejection fraction is | |estimated at 65-70%. | |Diastolic parameters are within normal limits. | |Right Atrium | |Normal right atrial size. | |Right Ventricle | |Normal right ventricular size. | |Right ventricle global systolic function is normal. | |TAPSE = cm. | |Pericardial Effusion | |No evidence of pericardial effusion. | |Pleural Effusion | |No evidence of pleural effusion. | |Miscellaneous | |Aortic root is mildly enlarged. | |IVC is not well seen. | | | |Valves | | | | Mitral Valve | | | | Peak E-Wave: 87.51 cm/s | | Peak A-Wave: 58.18 cm/s | | | | Tissue Doppler | | | | Septal e' Velocity: 10.95 cm/s | | Septal E/e' Ratio: | | | | Aortic Valve | | | | Peak Velocity: 139 cm/s Mean Gradient: 4.41 mmHg | | Peak Gradient: 7.73 mmHg | | | | Tricuspid Valve | | | | TR Velocity: 224.89 cm/s | | | | LVOT | | | | Peak Velocity: 108.53 cm/s | | | |Structures | | | | Left Atrium | | | | LA A/P Dimension: 4.53 cm LA Area: 26.11 cm^2 | | LA/Aorta:1.21 LA Volume: 83.41 ml | | LA Vol/BSA Index: 36 mL/m^2 | | LA Major:0.3197 | | | | Left Ventricle | | | | Diastolic Dimension: 4.67 cm Systolic Dimension: 2.89 cm | | Septum Diastolic: 1.16 cm | | PW Diastolic: 1.11 cm | | EF Reqdvyhqh44% | | EF Calculated: 70% | | | | Miscellaneous | | | | Aorta | | | | Aortic Root: 3.73 cm | | Ascending Aorta: 3.27 cm | + + + +---------+ + + | Performing | Address | City/State/Zipcode | Phone Number | | Organization | | | | + +---------+ + + | [facility] | | | | + +---------+ + + documented in this encounter Visit Diagnoses + + | Diagnosis | + + | Right-sided heart failure, unspecified HF chronicity (HCC) | + + documented in this encounter
--- OUTSIDE RECORDS SUMMARY | ~2019-11-12 | XMS | Encounter Summary ---
Demographics + + + | Address | [address] | | | [place] [address] | + + + | Home Phone | | + + + | Preferred Language | Unknown | + + + | Marital Status | | + + + | Oriental Orthodox Affiliation | Unknown | + + + | Race | White | + + + | Ethnic Group | Not or | + + + Author + + + | Author | [facility] | | | and Brianana | + + + | Organization | [facility] | | | [...] Team Providers + +------+ + | Care Financial Institution Manager Name | Role | Phone | [...] Description | +--------+--------+ + + + | 08/26/ | Refill | [facility] | Santi Dumont MD | Medication Refill | | 2019 | | MEDICINE [address] [place] [address] | [address] [place] [address] | | | | | [address], | [place], [place] | | | | | [place] [address] | [address] | | | | | [phone] | | | +--------+--------+ + + + [...]
--- OUTSIDE RECORDS SUMMARY | ~2019-11-12 | XMS | Encounter Summary ---
Demographics + + + | Address | [address] | | | [place] [address] | + + + | Home Phone | | + + + | Preferred Language | Unknown | + + + | Marital Status | | + + + | Sabianism Affiliation | Unknown | + + + | Race | White | + + + | Ethnic Group | Not or | + + + Author + + + | Author | [facility] | | | and Brianana | + + + | Organization | [facility] | | | [...] Team Providers + +------+ + | Care Software Intern Name | Role | Phone | + +------+ + | Santi Dumont MD | PCP | | + +------+ + Reason for Visit + + + | Reason | Comments | + + + | Follow-up | 6 weeks follow up Restless leg syndrome. | + + + Encounter Details +--------+---------+ + + + | Date | Type | Department | Care Team | Description | +--------+---------+ + + + | 03/14/ | Office | [facility] | Santi Dumont MD | Primary localized | | 2018 | Visit | MEDICINE [address] [place] [address] | [address] [place] [address] | osteoarthritis of | | | | [facility], | [place], [place] | left hip (Primary | | | | [place] [address] | [address] | Dx); Acute saddle | | | | [phone] | | pulmonary embolism | | | | | | with acute cor | | | | | | pulmonale (HCC); | | | | | | Essential tremor; | | | | | | Restless leg | | | | | | syndrome; Essential | | | | | | hypertension; | | | | | | Hypercholesteremia; | | | | | | Need for hepatitis C | | | | | | screening test | +--------+---------+ + + + Social History [...] + + + | Blood Pressure | 130/80 | 03/14/2017 11:05 AM | | | | | PST | | + + + + + | Pulse | 56 | 03/14/2017 11:05 AM | | | | | PST | | + + + + + | Temperature | 36.9 C (98.4 F) | 03/14/2017 11:05 AM | | | | | PST | | + + + + + | Respiratory Rate | 20 | 03/14/2017 11:05 AM | | | | | PST | | + + + + + | Oxygen Saturation | 96% | 03/14/2017 11:05 AM | | | | | PST | | + + + + + | Inhaled Oxygen | - | - | | | Concentration | | | | + + + + + | Weight | 113.3 kg (249 lb | 03/14/2017 11:05 AM | | | | 12.5 oz) | PST | | + + + + + | Height | 177.8 cm (5' 10") | 03/14/2017 11:05 AM | | | | | PST | | + + + + + | Body Mass Index | 35.84 | 03/14/2017 11:05 AM | | | | | PST | | + + + + + documented in this encounter Patient Instructions Patient Instructions Maria Teresa Tejeda CMA - 03/14/2017 11:20 AM PSTRecommend getting shingr ix vaccine at local pharmacy. Hip Injection with Agapito Smith tomorrow at 11 am with 10:30 am check in. Start Gabapentin 300 mg take one capsule twice daily for one week then increase to one caps ule three times daily then increase by one capsule weekly until taking 900 mg three times da carmella. Follow up at annual physical on 05/11/2017 and Please do fasting lab prior, 12 hr prior wate r only Lab open 7AM Sunday-Sunday; 8AM-4PM on Sunday (use Urgent Care entrance) Included in your labs orders will be a Hepatitis C screening. The [place] preventive task force is recommending all adults born between the years of 1945 and 1965 have a one time hepatitis C screening. documented in this encounter Progress Notes Santi Dumont MD - 03/14/2017 11:20 AM PST 03/14/2017 Patrice Interiano 1955 History: Patrice Interiano is a 61 y.o. male here for follow-up pulmonary embolism, left hip pain, and essential tremor He had a flulike illness one week ago with mild myalgias, cough and sore ribs, no fever or dyspnea. Symptoms now improving. He had a flu shot earlier this year, did not take Tamiflu . He has had a voluntary weight loss by following [employer]. Left hip is still painf ul, scheduled for left hip vertigo steroid injection in about 3 weeks. He has mild restless leg syndrome that is not bothering him tremendously. He is much more bothered by essential tremor, with difficulty preparing and eating food. He is considering restarting gabapentin, which was previously recommended by [facility] at a dosage of 3000 mg daily . Anxiety symptoms are relatively well controlled. Patient Active Problem List Diagnosis Cervical spondylosis with myelopathy Cervical radiculopathy Spondylolisthesis of lumbar region Lumbar degenerative disc disease Hypertension 2015 GERD (gastroesophageal reflux disease) Anxiety Essential tremor Restless leg syndrome Lumbar radiculopathy Lumbar spinal stenosis Saddle embolus of pulmonary artery with acute cor pulmonale 2017 Acute deep vein thrombosis (DVT) of left lower extremity 2017 Nocturnal hypoxemia Preventative health care Current Outpatient Prescriptions Medication Sig Dispense Refill [...] No current facility-administered medications for this visit. No Known Allergies Review of Systems Respiratory: Positive for wheezing. Negative for shortness of breath. Cardiovascular: Negative for chest pain. Musculoskeletal: Positive for arthralgias (left hip ). Neurological: Positive for tremors. Psychiatric/Behavioral: Negative for dysphoric mood. Physical Exam: BP 130/80 | Pulse 56 | Temp 36.9 C (98.4 F) (Tympanic) | Resp 20 | Ht 1.778 m (5' 1 0") | Wt 113.3 kg (249 lb 12.5 oz) | SpO2 96% | BMI 35.84 kg/m General: obese man in no distress, ambulatory with a 4 wheeled walker. Lungs: clear to auscultation & percussion. Respirations unlabored. Heart: regular rhythm, no murmur. P2 not prominent, Psych: normal affect. Neuro: Coarse action tremor of upper extremities. Right hand spiral recorded Assessment: 1. Primary localized osteoarthritis of left hip 2. Acute saddle pulmonary embolism with acute cor pulmonale (HCC) D-Dimer CANCELED: D-Dimer 3. Essential tremor 4. Restless leg syndrome 5. Essential hypertension CANCELED: Comprehensive Metabolic Panel CANCELED: CBC with Differential 6. Hypercholesteremia Comprehensive Metabolic Panel CBC with Differential Lipid Panel CANCELED: Lipid Panel 7. Need for hepatitis C screening test Hepatitis C Ab CANCELED: Hepatitis C Ab Plan: 1. Fasting labs prior to annual physical on 05/16/2017 2. Check d-dimer with labs in April to determine if 6 months of anticoagulation adequate f or pulmonary embolism treatment 3. Hip injection moved up until tomorrow 4. Start Gabapentin for essential tremor, take one 300 mg capsule twice daily for one week then increase to one capsule three times daily then increase by one capsule weekly until tommy ing 900 mg three times daily. Reviewed potential side effects. 5. Discussed options for tapering sertraline to diminish restless leg symptoms, but he is not too bothered by restless legs currently and has good control of anxiety. Plan to contin ue same sertraline dose. 6. Pending sleep consult with Dr. Pérez in 3 weeks Followup Instructions: Return for annual physical on 05/11/2017 . I, Santi Dumont MD, personally performed the services described in this documentation as scribed by Maria Teresa Tejeda M.A in my presence, and the documentation is both accurate and com plete. Santi Dumont MD 03/14/2017 documented in this en counter Plan of Treatment Not on filedocumented as [...] | + +--------+ + + + | EXTERNAL: | Routin | 03/03/2010 | | Results for this | | COLONOSCOPY | e | | | procedure are in the | | | | | | results section. | + +--------+ + + + documented in this encounter Results LABS - EXTERNAL SCAN (04/18/2017 12:00 AM PST) + + + | Narrative | Performed At | + + + | Ordered by an | | | unspecified provider. | | + + + EXTERNAL: COLONOSCOPY (03/03/2010) + +--------+ + + + | Component | Value | Ref Range | Performed | Pathologist | | | | | At | Signature | + +--------+ + + + | Colonoscopy | normal | | | | | | | | | | | Impression, | | | | | | External | | | | | + +--------+ + + + documented in this encounter Visit Diagnoses + + | Diagnosis | + + | Primary localized osteoarthritis of left hip - Primary | + + | Acute saddle pulmonary embolism with acute cor pulmonale (HCC) | + + | Essential tremor | + + | Restless leg syndrome Restless legs syndrome (RLS) | + + | Essential hypertension Unspecified essential hypertension | + + | Hypercholesteremia Pure hypercholesterolemia | + + | Need for hepatitis C screening test Special screening examination for other specified | | viral diseases | + + documented in this encounter
--- OUTSIDE RECORDS SUMMARY | ~2019-11-12 | XMS | Encounter Summary ---
Demographics + + + | Address | [address] | | | [place] [address] | + + + | Home Phone | | + + + | Preferred Language | Unknown | + + + | Marital Status | | + + + | Pentecostalism Affiliation | Unknown | + + + | Race | White | + + + | Ethnic Group | Not or | + + + Author + + + | Author | [facility] | | | and [place] | + + + | Organization | [facility] | | | [...] Team Providers + +------+ + | Care Academic Administrator Name | Role | Phone | + +------+ + | Isaac Miranda MD | PCP | | + +------+ + Reason for Visit + +--------+ + | Reason | Onset | Comments | | | Date | | + +--------+ + | Neurosurgery | 08/10/ | [facility] | | Appointment | 2016 | | + +--------+ + Encounter Details +--------+ + + + + | Date | Type | Department | Care Team | Description | +--------+ + + + + | 08/10/ | Telephone | [facility] | Mahendra Jackson MD | Neurosurgery | | 2017 | | NEUROSURGERY [address] | [address] | Appointment ([place]remy) | | | | [facility] | [place] [address] | | | | | [place] | [phone] | | | | | [address] | | | | | | [phone] | | | +--------+ + + + [...] this encounter Miscellaneous Notes Telephone Encounter - Fredy Navas Medical Assistant - 09/01/2016 9:17 AM PDTCalled Gely's work and advised her that we cannot fill out this paperwork with the patient not hav ing met with surgeon. She stated she would be calling [facility] and proceeded to hang up on me. ele phone Encounter - Fredy Navas Medical Assistant - 09/01/2016 9:15 AM PDTCalled nancy n to let them know that there will not be an exception made for their paperwork. Patrice told cynthia hugo to call his on her cell. [phone] signed by Beatriz Haywood at 09/01/2016 9: 17 AM PDTTelephone Encounter - Fredy Navas Medical Assistant - 09/01/2016 9:13 AM P DTSpoke with the patients about disability forms. Let her know, once again, that we do not fill these out without a treatment plan in place for the patient. Gely proceeded to expl ain to me what short term disability is and why her needs it. I let her know that I know that they are anxious to have this done and that I will talk to as well as my rios pervisor to see if there is a way to expidite this. I also moved the patients appointment up to next week so that we can get a treatment plan in place. Patients verbalized underst anding. elephone Encounter - Fredy Navas Medical Assistant - 08/17/2016 9:45 AM PDTSpo ke with patients . Patients is furious that her has to wait this long for a n appointment. I did my best to explain to Gely that we are working very hard to accommodate all of our patients and all of their needs. I told her that her is on the top of ou r cancellation list and that if anything changes in the meantime that I will call them and cynthia Ibrahim up. Gely said that this was unacceptable. I agreed with her that it was and that it is something that is out of our control currently. I apologized numerous times and said I w ould continue to work to get Patrice in sooner. Gely stated they were going to look for a amish d opinion. She then hung up on me. elephone Encounter - Mahendra Jackson MD - 08/17/2016 8:07 AM PDTPlease reassure the patient that my current staff will work hard to get Patrice Gleason Divjose cruz in sooner but he should call and speak to Gonzales Garcia or Jeannie Hampton in administration about the undesirably long wait to be evaluated. The administration has refused to provide any additional help or resources to the neurosurg maria isabel department and are the direct cause of these delays and access problems. I would advise they ask why no additional staff can be made available to neurosurgery despite the needs of patients. Again, we will get him in sooner like working on Saturdays and late hours for the physician s and current staff, but help from administration is the only way we can fix this issue group home. Mahendra Jackson elephone Encounter - Fredy Mantilla Aluminum Pourer - 08/15/2016 11:39 AM PDTCan you make final surgical rec ommendations for this patient? They do not want to wait till December to see and then try to get in for surgery. She states that they were told they would not have to come back in for an appointment before surgery. Please advise. elephone Encounter - Silvana Mead - 08/15/2016 11:17 AM PDTPatient return ed nurses call. Please call patient at [phone]. elephone Encounter - Fredy Navas Medical Assistant - 0 08/14/2016 2:21 PM PDTLeft voicemail for patrice requesting callback. elephone Encounter - Fredy Navas Medical Assistant - 08/14/2016 2:19 PM PDTCan you look over the MRI with Dr.Ya marie and make final recommendations? I would like to be able to expedite this process of getting his surgery authorized ahead of time. elephone Encounter - Sulema Adames - 08/14/2016 8:47 AM PDTPatient's called, talon mensah that it was her understanding that she could have Patrice's surgery scheduled with further a do. Please advise. elepho ne Encounter - Wen Russell - 08/11/2016 10:50 AM PDTPatient has been scheduled to see Dr Edgar Jackson on 12/27/16. Patient's spouse states that when they saw Dr. Jackson previously, they were t old that they would not need to come back into the office for a visit and would be able to m ove forward with surgery authorization, pre op studies, etc. elephone Encounter - Fredy Navas Medical Assista nt - 08/11/2016 8:51 AM PDTWould you like to see this patient urgently? Please advise. Elec tronically signed by Beatriz Haywood at 08/11/2016 8:52 AM PDTTelephon e Encounter - Fabian Escobedo PA - 08/10/2016 4:56 PM PDTPatient has moderately severe s sofía stenosis above his previous fusion. If the injections did not help he very well may ne ed further surgery. Please schedule with Dr. Jackson to discuss this. If he is really not doing good he probably won't like the timeline. My last note states that his pain is around a 7-8 in his left leg and he is unable to walk more than 5 minutes. From this information, if Dr Edgar jackson wants to try and see him urgently, they can make accommodations for this.Electronicall y signed by GERALD Morgan at 08/10/2016 5:06 PM PDTTelephone Encounter - Dulce Navas Aluminum Pourer - 08/10/2016 8:13 AM PDTPatients spouse calls in this morning an d states that her is not doing well. Patient had the injections two weeks ago with m inimal relief. States that he is having increased difficulty walking and moving in general a nd would like to be considered for surgery. Please advise. documented in this encounter Plan of Treatment Not on filedocumented as of this encounter Visit Diagnoses Not on filedocumented in this encounter"
--- OUTSIDE RECORDS SUMMARY | ~2019-11-12 | XMS | Encounter Summary ---
Demographics + + + | Address | [address] | | | [place] [address] | + + + | Home Phone [...] Team Providers + +------+ + | Care Counter Hop Name | Role | Phone | + +------+ + | Santi Dumont MD | PCP | | + +------+ + Reason for Visit + + + | Reason | Comments | + + + | Follow-up | 3 month follow up essential hypertension. | + + + Encounter Details +--------+---------+ + + + | Date | Type | Department | Care Team | Description | +--------+---------+ + + + | 08/26/ | Office | [facility] | Santi Dumont MD | Lumbar radiculopathy | | 2019 | Visit | MEDICINE [address] | [address] [facility] | (Primary Dx); | | | | [address], | [place] | Abnormal | | | | [place] [address] | [address] | transaminases; Class | | | | [phone] | | 2 severe obesity | | | | | | due to excess | | | | | | calories with | | | | | | serious comorbidity | | | | | | and body mass index | | | | | | (BMI) of 35.0 to | | | | | | 35.9 in adult (HCC) | +--------+---------+ + + + Social History [...] + + + | Blood Pressure | 118/76 | 08/26/2018 1:12 PM | | | | | PDT | | + + + + + | Pulse | 86 | 08/26/2018 1:12 PM | | | | | PDT | | + + + + + | Temperature | 37 C (98.6 F) | 08/26/2018 1:12 PM | | | | | PDT | | + + + + + | Respiratory Rate | 20 | 08/26/2018 1:12 PM | | | | | PDT | | + + + + + | Oxygen Saturation | 94% | 08/26/2018 1:12 PM | | | | | PDT | | + + + + + | Inhaled Oxygen | - | - | | | Concentration | | | | + + + + + | Weight | 118.1 kg (260 lb 5.8 | 08/26/2018 1:12 PM | | | | oz) | PDT | | + + + + + | Height | 177.8 cm (5' 10") | 08/26/2018 1:12 PM | | | | | PDT | | + + + + + | Body Mass Index | 37.36 | 08/26/2018 1:12 PM | | | | | PDT | | + + + + + documented in this encounter Patient Instructions Patient Instructions Maria Teresa Tejeda CMA - 08/26/2018 1:20 PM PDTLab check today [facility] weight loss recommendations: 1. Reduce calorie intake 200-300 calories per day 2. 30 min daily activity is essential to weight loss & maintenence Follow up at annual physical on 05/20/2019Electronically signed by Santi Dumont MD at 09/2018 1:56 PM PDT documented in this encounter Progress Notes Santi Dumont MD - 08/26/2018 1:20 PM PDT 08/26/2018 Patrice Interiano 1955 History: Patrice Interiano is a 63 y.o. male here for follow-up cough and lumbar radiculopathy His cough resolved with azithromycin treatment. He requests renewal of a disabled parking permit because he still uses a cane for stability when walking due to lumbar radiculopathy. He has gained 5 pounds of weight and is interested in weight loss. He states that he consu mes too much bread and too much carbonated pop. He had elevated transaminases noted a month ago, and was advised to discontinue acetaminoph en, which he did. He is a nondrinker. Current Outpatient Medications Medication Sig Dispense Refill acetaminophen (TYLENOL) 500 mg tablet Take 500 mg by mouth every 6 hours as needed for Pain. albuterol (PROAIR HFA) 90 mcg/puff inhaler Inhale 2 puffs into the lungs every 6 hours as needed for Wheezing. 6.7 g 3 Dextromethorphan-guaiFENesin (COUGH/CHEST CONGESTION DM PO) Take by mouth. As directed ELIQUIS 5 MG tablet TAKE ONE TABLET BY MOUTH TWICE DAILY 60 tablet 4 gabapentin (NEURONTIN) 300 mg capsule Take 300 mg by mouth as needed. hydroCHLOROthiazide 25 mg tablet Take 2 tablets by mouth Daily. 180 tablet 3 lisinopril (PRINIVIL,ZESTRIL) 40 MG tablet Take 1 tablet by mouth Daily. 90 tablet 3 loratadine (CLARITIN) 10 mg tablet Take 10 mg by mouth Daily. nadolol (CORGARD) 80 MG tablet Take one-half tablet once each day 15 tablet 5 omeprazole (PRILOSEC) 20 mg capsule Take 20 mg by mouth every morning (before breakfast ). potassium chloride 20 mEq CR tablet Take 1 tablet by mouth Daily. 90 tablet 3 pramipexole (MIRAPEX) 0.5 MG tablet TAKE ONE TABLET BY MOUTH EVERY DAY 30 tablet 5 sertraline (ZOLOFT) 50 mg tablet TAKE ONE TABLET BY MOUTH EVERY DAY 30 tablet 5 terazosin (HYTRIN) 5 mg capsule TAKE ONE CAPSULE BY MOUTH EVERY DAY 30 capsule 4 tiZANidine (ZANAFLEX) 4 mg tablet Take 1 tablet by mouth every 6 hours as needed for Mu scle spasms. 30 tablet 0 No current facility-administered medications for this visit. No Known Allergies Review of Systems Respiratory: Negative for shortness of breath. Cardiovascular: Negative for chest pain. Physical Exam: BP 118/76 | Pulse 86 | Temp 37 C (98.6 F) (Tympanic) | Resp 20 | Ht 1.778 m (5' 10" ) | Wt 118.1 kg (260 lb 5.8 oz) | SpO2 94% | BMI 37.36 kg/m General: obese man in no distress, ambulating with cane Lungs: clear to auscultation & percussion. Respirations unlabored. Heart: regular rhythm, no murmur. Abdomen: rounded, soft, no tenderness to percussion. Normal bowel tones. Normal liver span. Extremities: no peripheral edema. Right hip lacking 30 of flexion. Psych: normal affect. Appointment on 08/26/2018 Component Date Value Ref Range Status Na 08/26/2018 140 136 - 145 mmol/L Final K 08/26/2018 4.1 3.4 - 5.1 mmol/L Final Cl 08/26/2018 103 98 - 107 mmol/L Final CO2 08/26/2018 32* 20 - 31 mmol/L Final Anion Gap 08/26/2018 5 3 - 16 mmol/L Final Glucose 08/26/2018 105 60 - 106 mg/dL Final BUN 08/26/2018 19 9 - 23 mg/dL Final Creatinine 08/26/2018 1.12 0.70 - 1.30 mg/dL Final eGFR if not 08/26/2018 >60 >=60 mL/min/1.73m2 Final GLOMERULAR FILTRATION RATE,ESTIMATED mL/min/1.73m2 Less than 60 Chronic kidney disease,if found over a 3-month period. Less than 15 Kidney failure For Americans,multiply the calculated GFR by 1.21. Ca 08/26/2018 9.6 8.7 - 10.4 mg/dL Final Albumin 08/26/2018 4.5 3.2 - 4.8 g/dL Final Bilirubin Total 08/26/2018 0.8 0.3 - 1.2 mg/dL Final Total Protein 08/26/2018 6.6 5.7 - 8.2 g/dL Final AST 08/26/2018 46* 0 - 34 U/L Final ALT 08/26/2018 60* 10 - 49 U/L Final Alkaline Phosphatase 08/26/2018 52 46 - 116 U/L Final Globulin 08/26/2018 2.1 2.1 - 3.8 g/dL Final Albumin/Globulin Ratio 08/26/2018 2.1* 0.8 - 1.9 Final BUN/Creatinine Ratio 08/26/2018 17.0 Final Results for PATRICE INTERIANO ( ) as of 08/27/2018 08:18 Ref. Range 05/15/2018 15:02 Hepatitis C Ab Latest Ref Range: 0.0 - 0.9 s/co ratio <0.1 Assessment: 1. Abnormal transaminases 2. Lumbar radiculopathy Plan: 1. Disabled parking paper work filled out today. 2. Right upper quadrant ultrasound to evaluate for fatty liver 3. Check iron saturation and hepatitis B serology Followup Instructions: Return for annual physical on 05/20/2019. I, Santi Dumont MD, personally performed the services described in this documentation as scribed by Maria Teresa Tejeda M.A in my presence, and the documentation is both accurate and com plete. Santi Dumont MD 08/27/2018 documented in this enc ounter Plan of Treatment + +------+--------+ + + | Name | Type | Priori | Associated Diagnoses | Order Schedule | | | | ty | | | + +------+--------+ + + | Hepatitis B Surface | Lab | Add-On | Abnormal | 1 Occurrences | | Ab | | | transaminases | starting 08/27/2018 | | | | | | until 07/30/2019 | + +------+--------+ + + | Hepatitis B Surface | Lab | Add-On | Abnormal | Expected: | | Ag | | | transaminases | 08/27/2018, Expires: | | | | | | 07/30/2019 | + +------+--------+ + + documented as of this encounter Results US Abdomen Limited (09/16/2018 10:30 AM PDT) + + | Specimen | + + | | + + + + + | Narrative | Performed At | + + + | TECHNIQUE: Abdominal B-mode ultrasound with color and duplex doppler | [facility] | | CLINICAL INFORMATION: Abnormal transaminases. COMPARISON: | | | None available. FINDINGS: LIVER: Size: Mildly enlarged. | | | Echogenicity: Moderately echogenic Surface nodularity: None. Mass | | | (size and location): None. Portal Vein: Hepatopedal flow. BILE | | | DUCTS: Intrahepatic ducts: Normal. Common bile duct diameter: 4 mm | | | GALLBLADDER: Gallstones: None. Gallbladder sludge: None. | | | Gallbladder wall thickening: None. Pericholecystic fluid: None. | | | Sonographic Wall sign: Absent. PANCREAS: Imaged pancreas is | | | unremarkable. ASCITES: None. IMPRESSION - Hepatomegaly | | | with fatty infiltration. Dictated and Signed by: García Britton | | | Electronically signed: 09/16/2018 2:20 PM | | + + + + + | Procedure Note | + + | Francisco, Rad Results In - 09/16/2018 2:23 PM PDT TECHNIQUE: Abdominal B-mode ultrasound | | with color and duplex dopplerCLINICAL INFORMATION: Abnormal transaminases.COMPARISON: | | None available.FINDINGS: LIVER:Size: Mildly enlarged.Echogenicity: Moderately | | echogenicSurface nodularity: None. Mass (size and location): None.Portal Vein: | | Hepatopedal flow. BILE DUCTS:Intrahepatic ducts: Normal. Common bile duct diameter: 4 mm | | GALLBLADDER:Gallstones: None.Gallbladder sludge: None. Gallbladder wall thickening: | | None. Pericholecystic fluid: None.Sonographic Wall sign: Absent. PANCREAS:Imaged | | pancreas is unremarkable.ASCITES:None.IMPRESSION - Hepatomegaly with fatty | | infiltration.Dictated and Signed by: García Britton MD Electronically signed: | | 09/16/2018 2:20 PM | |Echogenicity: Moderately echogenic | |Surface nodularity: None. | |Mass (size and location): None. | |Portal Vein: Hepatopedal flow. | | | |BILE DUCTS: | |Intrahepatic ducts: Normal. | |Common bile duct diameter: 4 mm | | | |GALLBLADDER: | |Gallstones: None. | |Gallbladder sludge: None. | |Gallbladder wall thickening: None. | |Pericholecystic fluid: None. | |Sonographic Wall sign: Absent. | | | |PANCREAS: | |Imaged pancreas is unremarkable. | | | |ASCITES: | |None. | | | | | |IMPRESSION - Hepatomegaly with fatty infiltration. | | | |Dictated and Signed by: García Britton MD | | Electronically signed: 09/16/2018 2:20 PM | + + + +---------+ + + | Performing | Address | City/State/Zipcode | Phone Number | | Organization | | | | + +---------+ + + | [facility] | | | | + +---------+ + + Iron and Transferrin (08/26/2018 2:12 PM PDT) + +-------+ + + + | Component | Value | Ref Range | Performed | Pathologist | | | | | At | Signature | + +-------+ + + + | Iron | 83 | 65 - 175 ug/dL | [facility] | | | | | [facility] | | | | | | [facility]ICAL | | | | | | C[facility] - | | | | | | LABORATORY | | + +-------+ + + + | TRANSFERRIN | 236.0 | 215.0 - 365.0 | [facility] | | | | | mg/dL | [facility] | | | | | | MEDICAL | | | | | | CENTER - | | | | | | LABORATORY | | + +-------+ + + + | TIBC | 330 | 235 - 425 ug/dL | [facility] | | | | | | [facility] | | | | | | [facility]ICAL | | | | | | CENTER - | | | | | | LABORATORY | | + +-------+ + + + | % | 25.1 | 20.0 - 55.0 % | [facility] | | | [facility] | | [facility] | | [...] [address] | [place] | [phone] | | [facility] | | [address] | | | - LABORATORY | | | | + + + + + documented in this encounter Visit Diagnoses + + | Diagnosis | + + | Lumbar radiculopathy - Primary Thoracic or lumbosacral neuritis or radiculitis, | | unspecified | + + | Abnormal transaminases Nonspecific elevation of levels of transaminase or lactic acid | | dehydrogenase (LDH) | + + | Class 2 severe obesity due to excess calories with serious comorbidity and body mass | | index (BMI) of 35.0 to 35.9 in adult (HCC) | + + documented in this encounter
--- OUTSIDE RECORDS SUMMARY | ~2019-11-12 | XMS | Encounter Summary ---
Demographics + + + | Address | [address] | | | [place] [address] | + + + | Home Phone | | + + + | Preferred Language | Unknown | + + + | Marital Status | | + + + | Orthodox Affiliation | Unknown | + + + | Race | White | + + + | Ethnic Group | Not or | + + + Author + + + | Author | [facility] | + + + | Organization | [facility] | + + + | Address | Unknown | + + + | Phone | Unavailable | + + + Support + + +---------+ + | Name | Relationship | Address | Phone | + + +---------+ + | Gely Interiano | ECON | Unknown | | + + +---------+ + Care Team Providers + +------+ + | Care Reel Operator Name | Role | Phone | + +------+ + | Isaac Miranda MD | PCP | | + +------+ + Encounter Details +--------+ + + + + | Date | Type | Department | Care Team | Description | +--------+ + + + + | 08/20/ | Document-Sc | Health Information | Unknown . | | | 2012 | anned | Services [address] | | | | | | [address] | | | | | | Mailcode: [id number] | | | | | | [facility] | | | | | | [place], [place] | | | | | | [address] | | | | | | [phone] | | | +--------+ + + + [...] + + + | RADIOLOGY | | 08/20/2012 | | Results for this | | | | 12:00 AM | | procedure are in the | | | | PDT | | results section. | + +--------+ + + + documented in this encounter Results RADIOLOGY (08/20/2012 12:00 AM PDT) + + + | Narrative | Performed At | + + + | | | + + + documented in this encounter Visit Diagnoses Not on filedocumented in this encounter"
--- OUTSIDE RECORDS SUMMARY | ~2019-11-12 | XMS | Encounter Summary ---
Demographics + + + | Address | [address] | | | [place] [address] | + + + | Home Phone [...] Team Providers + +------+ + | Care Employee Relation Manager Name | Role | Phone | + +------+ + PCP | Unavailable | + +------+ + Encounter Details +--------+ + + + + | Date | Type | Department | Care Team | Description | +--------+ + + + + | 06/25/ | Hospital | [facility] | Mahendra Luna MD | | | 2011 | Encounter | MED CTR GENERIC OP | [address] | | | | | CONV DEPT [address] | [place] [address] | | | | | [place], | [phone] | | | | | [place] [address] | | | | | | [phone] | | | +--------+ + + + [...] + documented as of this encounter Procedure Shaan Bae MD - 06/26/2011 10:32 AM PDTDATE: 06/26/2011 TIME: 11:12. Sinus bradycardia. DICTATED BY: Shaan Coughlin MD Internal Medicine JOB #: [id number] EXT JOB #:[id number] cc: Mahendra Luna MD <Electronically Signed by Shaan Coughlin MD> 07/05/11 1149 documented in this encounter Plan of Treatment Not on filedocumented as of this encounter Procedures + +--------+ + + + | Procedure Name | Priori | Date/Time | Associated Diagnosis | Comments | | | ty | | | | + +--------+ + + + | PTT | Routin | 06/26/2011 | | Results for this | | | e | 11:34 AM | | procedure are in the | | | | PDT | | results section. | + +--------+ + + + | PROTIME INR | Routin | 06/26/2011 | | Results for this | | | e | 11:34 AM | | procedure are in the | | | | PDT | | results section. | + +--------+ + + + | CBC NO DIFFERENTIAL | Routin | 06/26/2011 | | Results for this | | | e | 11:34 AM | | procedure are in the | | | | PDT | | results section. | + +--------+ + + + | BASIC METABOLIC | Routin | 06/26/2011 | | Results for this | | PANEL | e | 11:34 AM | | procedure are in the | | | | PDT | | results section. | + +--------+ + + + | XR CHEST PA AND | | 06/26/2011 | | Results for this | | LATERAL | | 10:32 AM | | procedure are in the | | | | PDT | | results section. | + +--------+ + + + documented in this encounter Results Protime INR (06/26/2011 11:34 AM PDT) + + + + + + | Component | Value | Ref Range | Performed | Pathologist | | | | | At | Signature | + + + + + + | Prothrombin | 12.8 | 11.3 - 13.9 | [facility] | | | Time | | seconds | [facility] | | | | [...] INR: USUAL | 0.9 - 1.1 | [facility] | | | | ORAL ANTICOAGULATION | | [facility] | | | | RANGE | | MEDICAL | | | | 2.0-3.0 | | CENTER - | | | | HIGH LEVEL ORAL | | LABORATORY | | [...] [address] | [place] | [phone] | | [facility] | | [address] | | | - LABORATORY | | | | + + + + + | [facility] | [address] | [place] | | | [facility] | | [address] | | | - LABORATORY | | | | + + + + + PTT (06/26/2011 11:34 AM PDT) + + + + + + | Component | Value | Ref Range | Performed | Pathologist | | | | | At | Signature | + + + + + + | aPTT | 28.8Comment: Normal | 22.1 - 36.0 | [facility] | | | | Patient Mean Value: 29.0 | seconds | [facility] | | | | seconds | | MEDICAL | | | | [...] + | [facility] | [address] [place] [address] | [place], [place] | [phone] | | [facility] | | [address] | | | - LABORATORY | | | | + + + + + | [facility] | [address] | [place], [place] | | | [facility] | | [id number] [place] [address] | | | - LABORATORY | | | | + + + + + Basic Metabolic Panel (06/26/2011 11:34 AM PDT) + + + + + + | Component | Value | Ref Range | Performed | Pathologist | | | | | At | Signature | + + + + + + | Glucose | 93 | 70 - 109 mg/dL | [facility] | | | | | | [facility] | | | | | | MEDICAL | | | | | | CENTER - | | | | | | LABORATORY | | + + + + + + | Calcium | 9.2 | 8.3 - 10.5 | [facility] | | | | | mg/dL | [facility] | | | | | | MEDICAL | | | | | | CENTER - | | | | | | LABORATORY | | + + + + + + | BUN | 15 | 7 - 18 mg/dL | [facility] | | | | | | [facility] | | | | | | MEDICAL | | | | | | CENTER - | | | | | | LABORATORY | | + + + + + + | Creatinine | 1.13 | 0.60 - 1.30 | [facility] | | | | | mg/dL | [facility] | | | | | | MEDICAL | | | | | | CENTER - | | | | | | LABORATORY | | + + + + + + | Estimated | >60Comment: For | >60 mL/min/A | [facility] | | | GFR | -Americans, | | [facility] | | | | please multiply the | | MEDICAL | | | | result by 1.210 | | CENTER - | | | | This is an estimated | | LABORATORY | | | | GFR and is based on a | | | | | | standard adult | | | | | | body mass (A=1.73m2) and | | | | | | serum creatinine | | | | + + + + + + | BUN/Creatin | 13.3 | 12 - 20 | [facility] | | | ine Ratio | | | [facility] | | | | | | MEDICAL | | | | | | CENTER - | | | | | | LABORATORY | | + + + + + + | Na | 138 | 136 - 149 mEq/L | [facility] | | | | | | [facility] | | | | | | MEDICAL | | | | | | CENTER - | | | | | | LABORATORY | | + + + + + + | K | 4.6 | 3.5 - 5.1 mEq/l | [facility] | | | | | | [facility] | | | | | | MEDICAL | | | | | | CENTER - | | | | | | LABORATORY | | + + + + + + | Cl | 106 | 98 - 109 mEq/l | [facility] | | | | | | [facility] | | | | | | MEDICAL | | | | | | CENTER - | | | | | | LABORATORY | | + + + + + + | CO2 | 26 | 24 - 31 mEq/L | [facility] | | | | | | [facility] | | | | | | MEDICAL | | | | | | CENTER - | | | | | | LABORATORY | | + + + + + + | Anion Gap | 10.6 | 6.0 - 17.0 | [facility] | [...] + | [facility] | [address] | [place], [place] | [phone] | | [facility] | | [address] | | | - LABORATORY | | | | + + + + + | [facility] | [address] | [place], [place] | | | [facility] | | [address] | | | - LABORATORY | | | | + + + + + CBC no Differential (06/26/2011 11:34 AM PDT) + +-------+ + + + | Component | Value | Ref Range | Performed | Pathologist | | | | | At | Signature | + +-------+ + + + | White Blood | 4.8 | 4.0 - 11.0 K/uL | [facility] | | | Cells | | | [facility] | | | | | | MEDICAL | | | | | | CENTER - | | | | | | LABORATORY | | + +-------+ + + + | Red Blood | 4.74 | 4.30 - 5.70 | [facility] | | | Cells | | M/uL | [facility] | | | | | | MEDICAL | | | | | | CENTER - | | | | | | LABORATORY | | + +-------+ + + + | Hemoglobin | 14.9 | 13.5 - 18.0 | [facility] | | | | | gm/dL | [facility] | | | | | | MEDICAL | | | | | | CENTER - | | | | | | LABORATORY | | + +-------+ + + + | Hematocrit | 44.2 | 40.0 - 51.0 % | [facility] | | | | | | [facility] | | | | | | MEDICAL | | | | | | CENTER - | | | | | | LABORATORY | | + +-------+ + + + | MCV | 93.2 | 83.0 - 101.0 fL | [facility] | | | | | | [facility] | | | | | | MEDICAL | | | | | | CENTER - | | | | | | LABORATORY | | + +-------+ + + + | MCH | 31.3 | 28.0 - 35.0 pg | [facility] | | | | | | [facility] | | | | | | MEDICAL | | | | | | CENTER - | | | | | | LABORATORY | | + +-------+ + + + | MCHC | 33.6 | 32.0 - 36.0 | [facility] | | | | | g/dL | [facility] | | | | | | MEDICAL | | | | | | CENTER - | | | | | | LABORATORY | | + +-------+ + + + | RDW-CV | 12.7 | <15.0 % | [facility] | | | | | | [facility] | | | | | | MEDICAL | | | | | | CENTER - | | | | | | LABORATORY | | + +-------+ + + + | Platelet | 213 | 140 - 440 K/uL | [facility] | | | Count | | | [facility] | | [...] ST. | [address] | [place] | [phone] | | [facility] | | [address] | | | - LABORATORY | | | | + + + + + | [facility] | [address] [facility] | [place], [place] | | | [facility] | | [address], [facility] | | | - LABORATORY | | | | + + + + + XR Chest PA and Lateral (06/26/2011 10:32 AM PDT) + + | Specimen | + + | | + + + + + | Narrative | Performed At | + + + | [facility]. [facility] Diagnostic Imaging Department | [facility] | | [address] [facility] | [facility] [employer] [facility] | | TWO VIEW CHEST, 06/26/2011 | DIAG IMG | | CLINICAL HISTORY: PREOP. COMPARISON: None. FINDINGS: The | | | heart size is borderline. The hilar regions and pulmonary vasculature | | | are normal. No a reas of abnormal lung density are present. No bony | | | or upper abdominal abnormalities are seen. IMPRESSION: 1. | | | BORDERLINE HEART SIZE. OTHERWISE, NEGATIVE STUDY OF THE CHEST. | | | Dictated Date/Time: 06/26/2011 13:17 Transcribed Date/Time: | | | 06/26/2011 13:42 Manager Cosmetic: <Electronically Signed | | | by Dickson Armenta MD> 06/26/11 1425 | | + + + + + | Procedure Note | + + | Francisco, Rad Conversion - 03/28/2013 5:16 PM [facility] | | Diagnostic Imaging Department [address] [place] [address] | | TWO VIEW CHEST, 06/26/2011 CLINICAL HISTORY: PREOP. | | COMPARISON: None. FINDINGS: The heart size is borderline. The hilar regions and | | pulmonary vasculature are normal. No areas of abnormal lung density are present. No bony | | or upper abdominal abnormalities are seen. IMPRESSION: 1. BORDERLINE HEART SIZE. | | OTHERWISE, NEGATIVE STUDY OF THE CHEST. Dictated Date/Time: 06/26/2011 | | 13:17Transcribed Date/Time: 06/26/2011 13:42Transcriptionist: <Electronically | | Signed by Dickson Armenta MD> 06/26/11 1425 | | | |COMPARISON: None. | | | |FINDINGS: The heart size is borderline. The hilar regions and pulmonary vasculature are no rmal. No a | |reas of abnormal lung density are present. No bony or upper abdominal abnormalities are see n. | | | |IMPRESSION: | |1. BORDERLINE HEART SIZE. OTHERWISE, NEGATIVE STUDY OF THE CHEST. | | | |Dictated Date/Time: 06/26/2011 13:17 | |Transcribed Date/Time: 06/26/2011 13:42 | |Manager Cosmetic: | |<Electronically Signed by Dickson Armenta MD> 06/26/11 1425 | + + + +---------+ + + | Performing | Address | City/State/Zipcode | Phone Number | | Organization | | | | + +---------+ + + | [place] | | | | | [place] | | | | + +---------+ + + documented in this encounter Visit Diagnoses Not on filedocumented in this encounter"
--- OUTSIDE RECORDS SUMMARY | ~2019-11-12 | XMS | Encounter Summary ---
Demographics + + + | Address | [address] | | | [place] [address] | + + + | Home Phone [...] + + + | Author | [facility] | | | and Brianana | + + + | Organization | [facility] | | [...] Team Providers + +------+ + | Care Bridge Game Director Name | Role | Phone | [...] Description | +--------+--------+ + + + | 11/14/ | Refill | [facility] | Edilma Fatima | Medication Refill | | 2019 | | MEDICINE [address] | [address] | | | | | [facility], | [address] [facility] | | | | | [place] [address] | [place] [address] | | | | | [phone] | [phone] | | | | | | | [...]
--- OUTSIDE RECORDS SUMMARY | ~2019-11-12 | XMS | Encounter Summary ---
Demographics + + + | Address | [address] | | | [place] [address] | + + + | Home Phone | | + + + | Preferred Language | Unknown | + + + | Marital Status | | + + + | Synagogue Affiliation | Unknown | + + + | Race | White | + + + | Ethnic Group | Not or | + + + Author + + + | Author | [facility] | + + + | Organization | [facility] | + + + | Address | Unknown | + + + | Phone | Unavailable | + + + Support + + +---------+ + | Name | Relationship | Address | Phone | + + +---------+ + | Gely Interiano | ECON | Unknown | | + + +---------+ + Care Team Providers + +------+ + | Care Power Line Installer Name | Role | Phone | + +------+ + | Isaac Miranda MD | PCP | | + +------+ + Reason for Visit + + + | Reason | Comments | + + + | Return Patient | | + + + Intake Referral (Routine) +--------+--------+ + + + + | Status | Reason | Specialty | Diagnoses / | Referred By | Referred To | | | | | Procedures | Contact | Contact | +--------+--------+ + + + + | Closed | | Neurology | Diagnoses | Ruth | Alka | | | | | Other | Isaac Burnett MD | MD Sophia | | | | | specified | [place] | [address] [facility] | | | | | forms of | INTERNAL | [address] | | | | | tremor | MEDICINE | [address] [place], | | | | | Procedures | [address] | [place] | | | | | [place] NEW | [place] | [address] | | | | | PATIENT | [address] | Phone: | | | | | [address] [place] | [place], | [phone] | | | | | EST PATIENT | [place] [address] | Fax: | | | | | [address] | Phone: | [phone] | | | | | | [phone] | | | | | | | Fax: | | | | | | | [phone] | | +--------+--------+ + + + + Encounter Details +--------+---------+ + + + | Date | Type | Department | Care Team | Description | +--------+---------+ + + + | 04/25/ | Office | Neurology Movement | Sophia Rucker MD | Essential tremor | | 2017 | Visit | Disorders Clinic at | [address] | (Primary Dx) | | [facility] [place], | | | | | [facility] [address] | [place] [address] | | | | | [address] [facility] | [phone] | | | | | [facility], | | | | | | [facility] | | | | | | [place], [place] | | | | | | [address] | | | | | | [phone] | | | +--------+---------+ + + + [...] in this encounter Patient Instructions Patient Instructions Sophia Rucker MD - 04/25/2016 8:30 AM [facility] Tremor foundation will have locations of essential tremor support groups. Will start gabapentin to help with tremor and restless leg syndrome Follow this dosing schedule: - week 1: 300mg at bedtime - week 2: 300mg AM and 300mg at bedtime - week 3: 300mg AM and 600mg at bedtime documented in this encounter Progress Notes Danyelle Beard MD - 04/25/2016 8:30 AM PSTI performed a history and physical examinati on of the patient and discussed his management with Dr. Rucker. I reviewed her note and agre e with the documented findings and plan of care. Danyelle Beard MD NEUROLOGY AT [place] [address] [address] Mail Code: [address] [address] Sophia Jensen MD - 04/25/2016 8:30 AM PST Neurology New Note Author: Sophia Rucker MD Consult Date/Time: 04/25/2016 8:45 AM Requesting Attending: Isaac Miranda MD Reason for Consultation: tremor Handedness: right-handed HPI: Patrice Interiano is a 60 year old right-handed man with HTN, cervical spine fusion (), lumbar spine fusion (01/2012), depression, and restless leg syndrome presenting for eval uation of tremor. Tremor started at age 12. He feels like it has been getting worse in the last 15 years. It has been more present in his hands and is worse with anxiety. The tremor is in his neck, chi n, shoulders and hands. He has trouble holding a cup of water. He has trouble with eating an d bring food to his mounth but still able to use fork. Handwriting gets shaky and illegible after writing a few sentences. He reports that his hand tremor is bothersome and affecting h is quality of life and ability to work. He has been diagnosed with essential tremor by his PC and a local neurologist. He tried Primidone 50mg in the past but could not tolerate it due to disorientation, blurry vision, dizziness and cognitive effects. He did not try taking 25mg. He has been on nadolol 40mg for the past 5 years. Tried 80mg but he experienced side effects as above. He retired primidone 50mg but did not tolerate it for the second time. He was given a trial of diazepam 5mg TID and took it for 4 days but it made him very sleepy and unable to work. He works in [employer]. Alcohol helps his tremor, but he does not drink often. Has been diagnosed with RLS and has been on pramipexole 0.5mg given to him by his PCP. His notes that he will intermittently move his legs. She denies acting out his dreams. He d enies leg pain or uncomfortable sensation. He feels the urge to move his legs and needs to g et up and walk. He will have leg twitching at night when he is laying down. He does not feel like pramipexole has helped. Neurologic ROS: RIOS: - Focal weakness: + intermittent left leg weakness since December Focal numbness: - Tingling/parasthesias: + pain that shoots from low back to front of knee and groin 2/2 to p inched nerve, got x-rays done to re-evaluate his lumbar fusion Difficulty walking: + 2/2 leg pain Difficulty with balance: + knee will give out Vertigo: - [place]: - Change in vision: - Change in hearing: - but wears hearing aids Tinnitus: + L>R (chronic) PMH: HTN Cervical spine fusion C3-7 (06/2011) Lumbar spine fusion L4-S1 (01/2012) Depression Restless leg syndrome Home Meds: Current Medication List Name Sig ACETAMINOPHEN 300 MG-CODEINE 30 MG TABLET HYDROCHLOROTHIAZIDE 12.5 MG TABLET LISINOPRIL 20 MG TABLET Take by mouth. LORATADINE 10 MG TABLET Take 10 mg by mouth once daily. METHOCARBAMOL 750 MG TABLET Take by mouth. NADOLOL 80 MG TABLET Take by mouth. OMEPRAZOLE (BULK) MISC 20.6 mg. PRAMIPEXOLE 0.5 MG TABLET Take by mouth. SERTRALINE 50 MG TABLET Take by mouth. TERAZOSIN 2 MG CAPSULE Take by mouth. Allergies: No Known Allergies Social History: Social History Social History Marital status: Spouse name: N/A Number of children: N/A Years of education: N/A Occupational History Not on file. Social History Main Topics Smoking status: Never Smoker Smokeless tobacco: Not on file Alcohol use Not on file Drug use: Not on file Sexual activity: Not on file Other Topics Concern Not on file Social History Narrative No narrative on file Family History: Father- tremor Mother- of cancer Sister- tremor takes primidone Daughter Son- tremor (mild) PE: BP 154/94 | Pulse 107 | Wt 103.4 kg (228 lb) Admission Weight: Weight: 103.4 kg (228 lb) (04/25/16 0811) Constitutional: NAD Psychiatric: Mood/Affect: normal/appropriate Neurological: Mental Status: General: Normal activity, good hygiene, appropriate appearance. Level of consciousness: Awake, alert. Orientation: Oriented to person, place, time and situation. Concentration/Attention Span: Normal. Comprehension/Praxis: Able to perform a three step command. Language: Fluent and articulate without evidence of aphasia or dysarthria. Thought Content: Normal, no auditory or visual hallucinations. Insight/Judgement: Normal. Cranial Nerves: I: Not tested II: PERRL, visual ortiz full to confrontation bilaterally. III, IV, : Gaze conjugate, EOMI V: Sensation intact and symmetric to light touch V1-V3 VII: Symmetric facial motor function bilaterally VIII: Intact to finger rub bilaterally IX: Palate elevates symmetrically X: Normal cough XI: Normal shrug bilaterally XII: Tongue protrudes midline Motor: Normal tone in all groups. No drift. No-no head tremor (not worse with turning head left or right). Postural tremor in bilateral hands and action tremor in bilateral hands Delt Tri Bi WE WF DI HF KF KE APF ADF Left 5 5 5 5 5 5 4 5 4- 5 5 Right 5 5 5 5 5 5 5 5 5 5 5 Sensation: Light touch: Intact and symmetric in the bilateral upper and lower extremities. Temp: Intact and symmetric in the bilateral upper and lower extremities. Vibration: Intact and symmetric in the bilateral upper, decreased at toes Pin prick: Intact and symmetric in the bilateral upper reports sensation of electric shock in LE but both symmetric Proprioception: Intact and symmetric in the bilateral upper and lower extremities. DTRs: Biceps Triceps Brachioradialis Knee Ankle Left 1+ 2+ 2+ 2+ 1+ Right 2+ 2+ 2+ 2+ 1+ Plantar response is flexors bilaterally, but withdrawing Hoffmans sign is absent bilaterally Coordination: Finger tap and open close fist normal speed and amp Finger to nose with action tremor and end point tremor, and no end-point dysmetria Heel to monson is without any ataxia Rapid alternating movements are of normal speed and fluency Heel tapping is of normal speed and fluency Gait: The feet are spaced normally under shoulders width. Casual gait: Antalgic with normal arm swing, not stooped Heel walking: normal. Toe walking: normal. Tandem gait: held on to wall at times Able to get up from chair without using arms ROMBERG: negative HEENT: Eyes: non icteric Mouth: moist mucus membranes Respiratory: breathing comfotably GI: non distended Musculoskeletal: non tender Skin: no visible rash Labs: No new labs IMAGING: Images and reports personally reviewed. No brain imaging, cervical and lumbar MRI's done prior to fusions Diagnosis: # Essential Tremor Assessment: Patrice Interiano is a 60 year old right-handed man with HTN, cervical spine fusion (06/2011), lumbar spine fusion (01/2012), depression, and restless leg syndrome presenting f or evaluation of tremor. His exam is consistent with an essential tremor (ET) that is not op timally controlled. He does not have any features on exam of parkinsonism, thus do not feel his presentation is consistent with parkinson's disease. We discussed further medical therap y. Primidone and beta-blockers are the most effective pharmacological treatment for essentia l tremor. Unfortunately he has not been able to tolerate adequate doses of either medication given the side effect profile. We discussed other medications that can be used for ET but a re known to be less effective. Benzodiazepines are amongst those medications but he became e xcessively somnolent with diazepam. I would avoid topiramate in him at this point given the cognitive and sedative side effects. We discussed trying gabapentin as this could help his r estless leg syndrome in addition to his tremor. I explained that this too can have sedative side effects but we will titrate it slowly. Will try to reach a goal dose of 300mg TID but t his can be further titrated up to 1200mg TID in the future as side effects allow. We also discussed that medications are not likely to dampen his tremor significantly over t elsie and that DBS may be needed in the future. Given his age and how prominent his tremor is at this time, I anticipate he will need this procedure done if he wants further control as t his is a progressive condition. He would like to trial medications right now and let us know in the future if he would like to consider DBS. He also elected to continue following with his PCP locally given the burden of distance. I told him I am available as questions arise. Recommendations: - Continue Nadolol 40mg - start gabapentin with the following schedule: - week 1: 300mg at bedtime - week 2: 300mg AM and 300mg at bedtime - week 3: 300mg AM and 600mg at bedtime - continue following up with PCP - follow up in movement clinic PRN, if decides on DBS, will need a DBS appointment This patient has been staffed with Dr. Beard, attending physician, who agrees with the alma cervantes assessment and plan. Sophia Rucker MD Neurology Resident, PGY-3 Pgr [id number] signed by Sophia Rucker MD at 05/31/2016 10:30 AM PDTdocumented in t his encounter Plan of Treatment Not on filedocumented as of this encounter Visit Diagnoses + + | Diagnosis | + + | Essential tremor - Primary Essential and other specified forms of tremor | + + documented in this encounter"
--- OUTSIDE RECORDS SUMMARY | ~2019-11-12 | XMS | Encounter Summary ---
Demographics + + + | Address | [address] | | | [place] [address] | + + + | Home Phone | | + + + | Preferred Language | Unknown | + + + | Marital Status | | + + + | Uatsdin Affiliation | Unknown | + + + | Race | White | + + + | Ethnic Group | Not or | + + + Author + + + | Author | [facility] | | | and [place] | + + + | Organization | [facility] | | | [...] Team Providers + +------+ + | Care Performance Instructor Name | Role | Phone | + +------+ + | Santi Dumont MD | PCP | | + +------+ + Encounter Details +--------+ + + + + | Date | Type | Department | Care Team | Description | +--------+ + + + + | 03/21/ | Episode | [facility] | [facility] [place], | | | 2017 | Changes | ORTHOPEDIC SURGERY | Performance Instructor | | | | | [address] | | | | | | [place] | | | | | | [address] | | | | | | [phone] | | | +--------+ + + + [...]
--- OUTSIDE RECORDS SUMMARY | ~2019-11-12 | XMS | Encounter Summary ---
Demographics + + + | Address | [address] | | | [place] [address] | + + + | Home Phone [...] + | Author | [facility] | | | and [place] | + + + | Organization | [facility] | | | and [place] | + + + | Address | Unknown | + + + | Phone | Unavailable | + + + Support + + +---------+ + | Name | Relationship | Address | Phone | + + +---------+ + | Gely Lion | ECON | Unknown | | + + +---------+ + | Elier Lion | ECON | Unknown | | + + +---------+ + | Tali Lion | ECON | Unknown | | + + +---------+ + Care Team Providers + +------+ + | Care Iap Displays Analyst Name | Role | Phone | + +------+ + | Isaac Bee MD | PCP | | + +------+ + Encounter Details +--------+ + + + + | Date | Type | Department | Care Team | Description | +--------+ + + + + | 12/03/ | Hospital | [facility] | Delaney, | Acute saddle | | 2017 - | Encounter | [facility] | MD [address] | pulmonary embolism | | | | [phone] | without acute cor | | 12/11/ | | [address] | [place] [address] | pulmonale (HCC) | | 2017 | | [place], [place] | [phone] | | | | | [address] | | | | | | [phone] | | | +--------+ + + + [...] + + + | Blood Pressure | 160/94 | 12/11/2016 11:57 AM | | | | | PDT | | + + + + + | Pulse | 53 | 12/11/2016 11:57 AM | | | | | PDT | | + + + + + | Temperature | 36.6 C (97.9 F) | 12/11/2016 11:57 AM | | | | | PDT | | + + + + + | Respiratory Rate | 20 | 12/11/2016 11:57 AM | | | | | PDT | | + + + + + | Oxygen Saturation | - | - | | + + + + + | Inhaled Oxygen | - | - | | | Concentration | | | | + + + + + | Weight | 112.9 kg (248 lb | 12/11/2016 11:57 AM | | | | 14.4 oz) | PDT | | + + + + + | Height | 177.8 cm (5' 10") | 12/11/2016 11:57 AM | | | | | PDT | | + + + + + | Body Mass Index | 35.71 | 12/11/2016 11:57 AM | | | | | PDT | | + + + + + documented in this encounter Discharge Summaries Tip Raygoza MD - 12/11/2016 11:01 AM PDTFormatting of this note might be different f rom the original. Discharge Summaries by Tip Raygoza MD at 12/11/16 1101 Author: Tip Raygoza MD Service: Hospitalist Author Type: Physician Filed: 12/11/16 1358 Date of Service: 12/11/161100 Status: Signed Public Health Epidemiologist: Tip Raygoza MD (Physician) [facility] Service: Hospitalist Physician Discharge Summary Pt: Patrice Lion AGE/SEX: 61 y.o. male ROOM: [address] [place] [address] PCP: ISAAC BEE : 1955 Admit date: 12/03/2016 Discharge date and time: 12/11/2016 11:01 AM Admitting Physician: Juan Diego Baltazar MD Discharge Physician: Tip Raygoza MD Consults: NIll Primary Discharge Diagnoses: Principal Problem (Resolved): Acute respiratory failure with hypoxemia (HCC) Active Problems: Pulmonary embolism (HCC) Disorder of right ventricle of heart Essential hypertension Acute deep vein thrombosis (DVT) of left lower extremity (HCC) Resolved Problems: Hypoxemia Secondary Discharge Diagnoses: Severe pulmonary hypertension Discharged Condition: stable Significant Diagnostic Studies: echo Cardiac Adult Complete Result Date: 12/04/2016 1. The right ventricle is severely enlarged. 2. There is severe pulmonary hypertension. HPI and Hospital Course: The patient is 61 y.o.malewith significant past medical history of hypertension, cervic al spine fusion (06/2011), lumbar spine fusion (), depression, restless leg syndromew ho presents with dyspnea Due to bilateral pulmonary embolism. Echocardiogram shows RV strain with severe pulmonary hypertension. Initially he was requiring 12 L of oxygen but now down to 1.5. We tested for home oxygen requirement and he is not requiring any oxygen On the day of discharge he was feeling better He Had no CP, SOB, N/V, Diarrhea, Abdominal pain or RIOS. No constipation or change in bowel habits. No orthopnea or PND. Appetite is good without abdominal bloating. No cough or fever. No dizziness, lightheadedness or any symptoms suggestive of stroke. We also tested for overnight pulse oximetry and he is not dropping significant oxygen satur ation He Had no CP, SOB, N/V, Diarrhea, Abdominal pain or RIOS. No constipation or change in bowel habits. No orthopnea or PND. Appetite is good without abdominal bloating. No cough or fever. No dizziness, lightheadedness or any symptoms suggestive of stroke. Follow Up Labs/Imaging and Monitoring: Follow-up with the pulmonary medicine Discharge Vitals: Vitals: 12/10/16 2359 12/11/16 0413 12/11/16 0818 12/11/16 0842 BP: 131/79 (!) 152/93 (!) 160/94 BP Location: Left upper arm Right upper arm Pulse: 54 53 Resp: 20 20 Temp: 97.3 F (36.3 C) 97.9 F (36.6 C) TempSrc: Axillary Oral SpO2: 96% 95% Weight: Height: Discharge Exam: Constitutional: Alert and oriented to person, place, and time. Cardiovascular: Normal rate, regular rhythm, normal heart sounds with S1 and S2 and intact distal pulses. Exam reveals no gallop and no friction rub. No murmur heard. Pulmonary/Chest: Effort normal and breath sounds normal. No stridor. No respiratory distres s. no wheezes. no rales. exhibits no tenderness. Abdominal: Soft. Bowel sounds are normal. exhibits no distension and no mass. There is no t enderness. There is no rebound and no guarding. Musculoskeletal: Normal range of motion.exhibits no tenderness. exhibits no edema. Neurological: Alert and oriented to person, place, and time. Has normal reflexes. display s normal reflexes. No cranial nerve deficit. Exhibits normal muscle tone. Coordination norm al. Skin: Skin is warm and dry. No rash noted. No erythema. No pallor. Psychiatric: Has a normal mood and affect. Behavior is normal. Judgment normal. Not suicida l LABS: Recent Labs Lab 12/07/16 0615 12/06/16 0544 12/05/16208 WBC 4.98 5.39 7.21 HGB 12.0* 11.6* 11.9* HCT 35.5* 34.9* 36.1* PLT 178 214 256 NEUTOPHILPCT 66.33 66.91 69.90 MONOPCT 7.56 7.49 8.87 Recent Labs Lab 12/07/16 0615 12/06/16 0544 12/05/16 0209 NA 141 143 139 K 4.4 4.2 4.0 CL 107 107 106 CO2 29 29 27 BUN 11 14 16 CREATININE 0.87 1.0 1.0 PROT -- -- 6.4 BILITOT -- -- 0.6 ALT -- -- 51 AST -- -- 18 Recent Labs Lab 12/06/16 0544 12/05/16 0209 MG 2.4 2.3 Recent Labs Lab 12/07/16 0615 12/06/16 0544 12/05/16 0806 APTT 34* 54* 63* Results No results found for the last 72 hours. Disposition: Home Patient Instructions: Medication List START taking these medications * apixaban 5 MG tablet QTY: 28 tablet Refills: 0 Commonly known as: ELIQUIS Take 2 tablets by mouth 2 (two) times daily for 7 days. * apixaban 5 MG tablet QTY: 60 tablet Refills: 1 Commonly known as: ELIQUIS Take 1 tablet by mouth 2 (two) times daily for 175 days. Start taking on: 12/15/2016 * This list has 2 medication(s) that are the same as other medications prescribed for you. Read the directions carefully, and ask your doctor or other care provider to review them wit h you. CONTINUE taking these medications furosemide 40 MG tablet Refills: 0 Commonly known as: LASIX lisinopril 40 MG tablet Refills: 0 Commonly known as: ZESTRIL nadolol 80 MG tablet Refills: 0 Commonly known as: CORGARD omeprazole 20 MG capsule Refills: 0 Commonly known as: PRILOSEC oxyCODONE-acetaminophen 5-325 MG per tablet Refills: 0 Commonly known as: PERCOCET potassium chloride 10 MEQ tablet Refills: 0 Commonly known as: K-DUR pramipexole 0.5 MG tablet Refills: 0 Commonly known as: MIRAPEX senna 8.6 MG tablet Refills: 0 Commonly known as: SENOKOT sertraline 50 MG tablet Refills: 0 Commonly known as: ZOLOFT tizanidine 4 MG capsule Refills: 0 Commonly known as: ZANAFLEX You might also be taking other medications not listed above. If you have questions about an y of your other medications, talk to the person who prescribed them or your Primary Care Pro vider. STOP taking these medications amoxicillin 875 MG tablet Commonly known as: AMOXIL Where to Get Your Medications You can get these medications from any pharmacy Bring a paper prescription for each of these medications apixaban 5 MG tablet apixaban 5 MG tablet Activity: activity as tolerated Diet: regular diet Wound Care: as directed Discharge medications reconciliation was completed by myself. I carefully reviewed all the medications with the patient. All the dosages was confirmed with the patient to the best o f patient's knowledge. I resumed most of his home medication after talking to the patient. I informed the patien t that, If you are not taking any of those medicines or if you think that dose is not righ t please talk to the primary care doctor for adjustment of doses and medications. Please tommy e all the medication to your PCP and show him what medication you are taking so that he can adjust your medications if needed. Follow-Up: Isaac Bee MD [address] [place] [address] [address] [place] [phone] In 1 week Discharge took more than 35 minutes, to include final examination, discussion of admission, and preparation of prescriptions, instructions for ongoing care, follow up and dictation of summary. Signed: TIP RAYGOZA MD 12/11/2016 11:01 AM Dictation software, [employer], used which may contain error for similar sounding words even af ter review. Personal communication requested for any clarification. Portions of this chart may have been copied from previous notes for continuity of care purp ose documented in this encounter Medications at Time [...] documented as of this encounter Progress Notes Conversion Transaction, Provider Unknown - 12/11/2016 12:09 PM PDTFormatting of this note m ight be different from the original. Nurse Progress Note by Della Cisneros RN at 12/11/161208 Author: Della Cisneros RN Service: (none) Author Type: Registered Nurse Filed: 12/11/161209 Date of Service: 12/11/161208 Status: Signed Public Health Epidemiologist: Della Cisneros RN (Registered Nurse) Pt discharge instructions reviewed and medications explained to pt and spouse. RX pharmacy previously delivered home meds. No questions from pt or family at this time. Pt left via whe elchair with tp escort services will all belongings. onver mallika Transaction, Provider Unknown - 12/11/2016 12:08 PM PDT Case Management by Maya Last RN at 12/11/161207 Author: Maya Last RN Service: (none) Author Type: Registered Nurse Filed: 12/11/161209 Date of Service: 12/11/161207 Status: Signed Public Health Epidemiologist: Maya Last RN (Registered Nurse) Discharge planning: CM met with pt and spouse to discuss discharge planning, no new needs identified. Pt's discharge medications including Eliquis was delivered to room on Sunday. onver mallika Transaction, Provider Unknown - 12/11/2016 11:52 AM PDT Progress Notes by Jennifer Dominguez CRT at 12/11/161151 Author: Jennifer Dominguez CRT Service: (none) Author Type: Certified Respiratory Therapist Filed: 12/11/161151 Date of Service: 12/11/161151 Status: Signed Public Health Epidemiologist: Jennifer Dominguez CRT (Certified Respiratory Therapist) [facility] Department of Respiratory Detention Oxygen Evaluation (Evaluation is valid for 48 hours once completed) Date: 12/11/2016 RT: JENNIFER DOMINGUEZ Time: 11:52 AM Home O2 Eval at rest-Part 1 Is the patient's SpO2 88% or lower at rest & breathing room air? : No SpO2 at rest & breathing room air: 91 percent Home O2 Eval during exercise-Part 2 Is the patient's SpO2 88% or lower during exercise & breathing room air? : No SpO2 during exercise & breathing room air : 90 percent HOME OXYGEN PROVIDER PREFERENCE PHONE FAX *NOTE* Provider must include liter flow, route of oxygen administration, frequency of use w ith duration of need in months on the prescription AND document patient s diagnosis. OXYGEN PRN IS NOT A VALID ORDER Physician Signature: Date: Time: onver mallikaabbie Pulido, Provider Unknown - 12/11/2016 11:15 AM PDT Therapy Progress Note by David Green PTA at 12/11/16 111 Author: David Green PTA Service: (none) Author Type: Terra Cotta Setter Filed: 12/11/16 1119 Date of Service: 12/11/161114 Status: Signed Public Health Epidemiologist: David Green PTA (Terra Cotta Setter) 12/11/161114 PT Last Visit PT Received On 12/11/16 Reason for Treatment Other (comment) (L4-S1 fusion 11/14/16 B PE's and DVT's post op) Requires PT Follow Up Yes Assistance Required 1 person Precautions Spinal Precautions Lumbar;TLSO on when upright Other Comments Comments pt supine in bed ready to participate completed transfer and gait training and re turned to sitting @ EOB Cognition Overall Cognitive Status WFL Orientation Level Oriented Bed Mobility Rolling Supervison Sidelying to Sit Supervision Sit to Sidelying Supervision Scooting Supervision Transfers Sit to/from Stand Supervision Mobility Ambulation Assistance Supervision Maximal Ambulation Distance (feet) 240 Total Ambulation Distance (feet) 240 Distance limited by? Patient's ability Pattern Alternating;Decreased rosita Assistive Device Walker 4 wheeled Activity Tolerance Activity Tolerance Patient tolerated treatment without report of fatigue Plan Treatment/Interventions Continue per Primary PT POC Progress Progressing toward goals Recommendation Recommendations Home Assist PT Ready for Discharge Yes PT recommendations were discussed and verified with supervising PT. aljanine, Tip Christine MD - 12/10/2016 9:46 AM PDT Progress Notes by Tip Raygoza MD at 12/10/16945 Author: Tip Raygoza MD Service: Hospitalist Author Type: Physician Filed: 12/10/16 1001 Date of Service: 12/10/16945 Status: Signed Public Health Epidemiologist: Tip Raygoza MD (Physician) [facility] Service: Hospitalist Progress Note Pt: Patrice Lion AGE/SEX: 61 y.o. male ROOM: [address] [place] [address] : 1955 PCP: ISAAC BEE ADMIT DATE: 12/03/2016 TODAY'S DATE: 12/10/2016 Hospital Day/Hospital Course: LOS: 7 days The patient is 61 y.o. male with significant past medical history of hypertension, cervical spine fusion (06/2011), lumbar spine fusion (), depression, restless leg syndrome who presents with dyspnea Due to bilateral pulmonary embolism SUBJECTIVE: Patient seen and examine. His oxygen requirement has improved. He is eating his breakfast. He said he is comfortable today. . No chest pain, RIOS. Had no orthopnea or PND. No Abdomina l pain, N/V or fever. No dizziness or lightheadedness. Scheduled Medications: apixaban 10 mg Oral BID famotidine 20 mg Oral BID Or famotidine 20 mg Intravenous BID lisinopril 40 mg Oral Daily nadolol 40 mg Oral Daily pramipexole 0.5 mg Oral Daily sertraline 50 mg Oral Daily Continuous Infusions PRN Medications acetaminophen OR acetaminophen, fentaNYL OR fentaNYL, ondansetron OR ondansetro n, polyethylene glycol Allergy: No Known Allergies OBJECTIVE: Vitals: Patient Vitals for the past 24 hrs: BP Temp Temp src Pulse Resp SpO2 12/10/16 0834 (!) 172/100 - - 53 - 99 % 12/10/16 0822 (!) 177/96 97.9 F (36.6 C) Oral 57 22 94 % 12/10/16 0739 - - - 54 - (!) 88 % 12/10/16 0730 - - - 50 - (!) 82 % 12/10/16 0728 - - - (!) 48 - (!) 84 % 12/10/16 0722 - - - 50 - (!) 84 % 12/10/16 0709 - - - 54 - (!) 82 % 12/10/16 0659 - - - 51 - (!) 82 % 12/10/16 0643 - - - 50 - (!) 82 % 12/10/16 0631 - - - (!) 47 - (!) 81 % 12/10/16 0629 - - - (!) 47 - (!) 81 % 12/10/16 0353 (!) 173/101 98.2 F (36.8 C) Oral 58 22 (!) 87 % 12/09/16 2251 (!) 163/96 98.2 F (36.8 C) Oral 57 20 91 % 12/09/16 1925 132/87 98.5 F (36.9 C) Oral 56 22 93 % 12/09/16 1630 139/80 98.3 F (36.8 C) Oral 61 21 93 % 12/09/16 1123 (!) 144/93 94.8 F (34.9 C) Axillary 52 22 91 % I&O Detailed Table: Intake/Output Summary (Last 24 hours) at 12/10/16 0946 Last data filed at 12/10/16 035 Gross per 24 hour Intake 800 ml Output 0 ml Net 800 ml Patient Vitals for the past 96 hrs: Weight 12/08/16 0254 112.9 kg (248 lb 14.4 oz) 12/07/16 035 117.7 kg (259 lb 8 oz) Hemodynamics Last 24hrs: Physical Examination: Constitutional: He is awake and alert. He is talking to me appropriately. He is not in any kind of distress. HEENT: Neck supple, no JVD, non icteric sclera. Cardiovascular: Normal rate, regular rhythm, normal heart sounds with S1 and S2, and intact distal pulses. Exam reveals no gallop and no friction rub. No murmur heard. Pulmonary/Chest: Chest clear bilateral. Abdominal: Soft nontender also positive Extremeties/Musculoskeletal: Normal range of motion.exhibits no tenderness. exhibits no ed butch. Neurological: Alert and oriented to person, place, and time. Has normal reflexes. No cran ial nerve deficit. Exhibits normal muscle tone. Coordination normal. Skin: Skin is warm and dry. No rash noted. No erythema. No pallor. Psychiatric: Has a normal mood and affect. Behavior is normal. Judgment normal. Not suicida l LABS: Recent Labs Lab 12/07/1661412/06/1654312/05/16208 WBC 4.98 5.39 7.21 HGB 12.0* 11.6* 11.9* HCT 35.5* 34.9* 36.1* PLT 178 214 256 NEUTOPHILPCT 66.33 66.91 69.90 MONOPCT 7.56 7.49 8.87 Recent Labs Lab 12/07/1661412/06/1654312/05/1620812/04/16521 NA 141 143 139 143 K 4.4 4.2 4.0 4.2 CL 107 107 106 107 CO2 29 29 27 28 BUN 11 14 16 18 CREATININE 0.87 1.0 1.0 1.0 PROT -- -- 6.4 6.6 BILITOT -- -- 0.6 0.7 ALT -- -- 51 56 AST -- -- 18 23 Phosphorus: Lab Results Component Value Date PHOS 4.4 12/04/2016 Recent Labs Lab 12/06/1654312/05/1620812/04/16521 MG 2.4 2.3 2.3 Recent Labs Lab 12/07/1661412/06/1654312/05/16 0806 12/03/16 2334 APTT 34* 54* 63* < > 30 INR -- -- -- -- 1.1 < > = values in this interval not displayed. Recent Labs Lab 12/04/1652112/03/16 2335 CKTOTAL 56 65 TROPONINI 0.061 0.07 CKMBINDEX 6.6 6.2 Results No results found for the last 72 hours. PROBLEM LIST Principal Problem: Acute respiratory failure with hypoxemia (HCC) Active Problems: Pulmonary embolism (HCC) Disorder of right ventricle of heart Hypoxemia Essential hypertension Acute deep vein thrombosis (DVT) of left lower extremity (HCC) ASSESSMENT & PLAN The patient is 61 y.o. male with significant past medical history of hypertension, cervical spine fusion (06/2011), lumbar spine fusion (), depression, restless leg syndrome who presents with dyspnea Due to bilateral pulmonary embolismWith acute hypoxic respiratory fail ure Principal Problem: Acute respiratory failure with hypoxemia (HCC)With severe pulmonary hypertension His oxygen requirement has improved. He is on 1.5 L. I will try to wean him off. I still n eed to check his overnight pulse oximetry.. He said he is feeling good. He is not in any dis tress though. I switched him to oral Eliquis. No chest pain or nausea or vomiting... Echoca rdiogram showing RV strain. Also had a severe pulmonary hypertension Patient presented with the acute hypoxic respiratory failure. He is still requiring 10L oxygen. His shortness of br eath has improved. Pulmonary embolism (HCC) With acute deep vein thrombosis of left lower extremity. He is feeling comfortable. Disorder of right ventricle of heart RV strain with dilatation. Essential hypertension Blood pressure is appropriately controlled Discharge plan possibly tomorrow provided we have overnight pulse oximetry Patient diagnosed with: , and I agree with the following nutritional recommendations: TIP RAYGOZA MD, FACP 12/10/2016 9:46 AM Dictation software, [employer], used which may contain error for similar sounding words even af ter review. Personal communication requested for any clarification. Portions of this chart may have been copied from previous notes for continuity of care purp ose alik, Tip Christine MD - 12/09/2016 9:49 AM PDT Progress Notes by Tip Raygoza MD at 12/09/16948 Author: Tip Raygoza MD Service: Hospitalist Author Type: Physician Filed: 12/09/1654 Date of Service: 12/09/16948 Status: Signed Public Health Epidemiologist: Tip Raygoza MD (Physician) [facility] Service: Hospitalist Progress Note Pt: Patrice Lion AGE/SEX: 61 y.o. male ROOM: [address] [place] [address] : 1955 PCP: ISAAC BEE ADMIT DATE: 12/03/2016 TODAY'S DATE: 12/09/2016 Hospital Day/Hospital Course: LOS: 6 days The patient is 61 y.o. male with significant past medical history of hypertension, cervical spine fusion (06/2011), lumbar spine fusion (), depression, restless leg syndrome who presents with dyspnea Due to bilateral pulmonary embolism SUBJECTIVE: Patient seen and examine. Overnight he dropped oxygen. His oxygen requirement went up to 4 L again. He said he is feeling comfortable. No chest pain, RIOS. Had no orthopnea or PND. No Abdominal pain, N/V or fever. Still feeling tired and fatigued. No dizziness or lightheaded ness. Scheduled Medications: apixaban 10 mg Oral BID famotidine 20 mg Oral BID Or famotidine 20 mg Intravenous BID lisinopril 40 mg Oral Daily nadolol 40 mg Oral Daily pramipexole 0.5 mg Oral Daily sertraline 50 mg Oral Daily Continuous Infusions PRN Medications acetaminophen OR acetaminophen, fentaNYL OR fentaNYL, ondansetron OR ondansetro n, polyethylene glycol Allergy: No Known Allergies OBJECTIVE: Vitals: Patient Vitals for the past 24 hrs: BP Temp Temp src Pulse Resp SpO2 12/09/16 0800 136/85 95.5 F (35.3 C) Axillary 51 22 97 % 12/09/16418 (!) 149/97 - - - - - 12/09/16 041 (!) 159/104 97.4 F (36.3 C) Oral 55 20 93 % 12/08/16 2348 144/77 97.9 F (36.6 C) Oral 58 20 90 % 12/08/16 1940 141/86 97.7 F (36.5 C) Oral 60 21 92 % 12/08/16 1545 (!) 141/92 98 F (36.7 C) Oral 59 21 91 % 12/08/16 1245 - - - - - 94 % 12/08/16 1112 112/69 98 F (36.7 C) Oral 55 21 90 % I&O Detailed Table: Intake/Output Summary (Last 24 hours) at 12/09/16 1715 Last data filed at 12/09/16 1873 Gross per 24 hour Intake 750 ml Output 0 ml Net 750 ml Patient Vitals for the past 96 hrs: Weight 12/08/16 0254 112.9 kg (248 lb 14.4 oz) 12/07/16 0354 117.7 kg (259 lb 8 oz) 12/06/16 0345 113.9 kg (251 lb) Hemodynamics Last 24hrs: Physical Examination: Constitutional: He sitting comfortably. He is not in any kind of distress. He talking to me appropriately. HEENT: Neck supple, no JVD, non icteric sclera. Cardiovascular: Normal rate, regular rhythm, normal heart sounds with S1 and S2, and intact distal pulses. Exam reveals no gallop and no friction rub. No murmur heard. Pulmonary/Chest: Chest clear bilateral. Abdominal: Soft nontender also positive Extremeties/Musculoskeletal: Normal range of motion.exhibits no tenderness. exhibits no ed butch. Neurological: Alert and oriented to person, place, and time. Has normal reflexes. No cran ial nerve deficit. Exhibits normal muscle tone. Coordination normal. Skin: Skin is warm and dry. No rash noted. No erythema. No pallor. Psychiatric: Has a normal mood and affect. Behavior is normal. Judgment normal. Not suicida l LABS: Recent Labs Lab 12/07/1661412/06/1654312/05/16208 WBC 4.98 5.39 7.21 HGB 12.0* 11.6* 11.9* HCT 35.5* 34.9* 36.1* PLT 178 214 256 NEUTOPHILPCT 66.33 66.91 69.90 MONOPCT 7.56 7.49 8.87 Recent Labs Lab 12/07/1661412/06/1654312/05/1620812/04/16521 NA 141 143 139 143 K 4.4 4.2 4.0 4.2 CL 107 107 106 107 CO2 29 29 27 28 BUN 11 14 16 18 CREATININE 0.87 1.0 1.0 1.0 PROT -- -- 6.4 6.6 BILITOT -- -- 0.6 0.7 ALT -- -- 51 56 AST -- -- 18 23 Phosphorus: Lab Results Component Value Date PHOS 4.4 12/04/2016 Recent Labs Lab 12/06/1654312/05/1620812/04/16521 MG 2.4 2.3 2.3 Recent Labs Lab 12/07/16 0615 12/06/16 0544 12/05/16 0806 12/03/16 2334 APTT 34* 54* 63* < > 30 INR -- -- -- -- 1.1 < > = values in this interval not displayed. Recent Labs Lab 12/04/16 0522 12/03/16 2335 CKTOTAL 56 65 TROPONINI 0.061 0.07 CKMBINDEX 6.6 6.2 Results No results found for the last 72 hours. PROBLEM LIST Principal Problem: Acute respiratory failure with hypoxemia (HCC) Active Problems: Pulmonary embolism (HCC) Disorder of right ventricle of heart Hypoxemia Essential hypertension Acute deep vein thrombosis (DVT) of left lower extremity (HCC) ASSESSMENT & PLAN The patient is 61 y.o. male with significant past medical history of hypertension, cervical spine fusion (06/2011), lumbar spine fusion (), depression, restless leg syndrome who presents with dyspnea Due to bilateral pulmonary embolismWith acute hypoxic respiratory fail ure Principal Problem: Acute respiratory failure with hypoxemia (HCC)With severe pulmonary hypertension Overnight his oxygen requirement went up. He is back to 4 L now. He said he is feeling goo d. He is not in any distress though. I switched him to oral Eliquis. No chest pain or nause a or vomiting... Echocardiogram showing RV strain. Also had a severe pulmonary hypertension Patient presented with the acute hypoxic respiratory failure. He is still requiring 10L oxyg en. His shortness of breath has improved. Pulmonary embolism (HCC) With acute deep vein thrombosis of left lower extremity. He is feeling comfortable. Disorder of right ventricle of heart RV strain with dilatation. Essential hypertension Blood pressure is appropriately controlled Discharge plan possibly tomorrow Patient diagnosed with: , and I agree with the following nutritional recommendations: TIP RAYGOZA MD, FACP 12/09/2016 9:49 AM Dictation software, [employer], used which may contain error for similar sounding words even af ter review. Personal communication requested for any clarification. Portions of this chart may have been copied from previous notes for continuity of care purp ose onversion Transac tion, Provider Unknown - 12/09/2016 4:46 AM PDTFormatting of this note might be different f rom the original. Nurse Progress Note by Faith Gracia RN at 12/09/16445 Author: Faith Gracia RN Service: (none) Author Type: Registered Nurse Filed: 12/09/16447 Date of Service: 12/09/16445 Status: Signed Public Health Epidemiologist: Faith Gracia RN (Registered Nurse) Patient on 1.5 L/NC, sats dropped down to 82-84 % while sleeping. O2 increased to 4 L/oxym ask. Will continue to monitor. Faith Gracia RN onver mallika Transaction, Provider Unknown - 12/08/2016 6:42 PM PDT Progress Notes by Esmer Coburn RN at 12/08/161841 Author: Esmer Coburn RN Service: (none) Author Type: Registered Nurse Filed: 12/08/161843 Date of Service: 12/08/161841 Status: Signed Public Health Epidemiologist: Esmer Coburn RN (Registered Nurse) Pt weaned down to 1.5 L o2 while sleeping, sat 90-91%. Still experiencing dyspnea on exerti on but overall pt states he feels well. No other acute changes from previous assessment, VSS , afebrile. Hourly rounding otherwise uneventful. Esmer Yarbrough RN. itConstanza grant LMT - 12/08/2016 2:39 PM PDT Therapy Progress Note by ERICKSON Elam at 12/08/161438 Author: ERICKSON Elam Service: (none) Author Type: Massage Therapist Filed: 12/08/161438 Date of Service: 12/08/161438 Status: Signed Public Health Epidemiologist: ERICKSON Elam (Massage Therapist) 12/08/161438 Massage Therapy Interventions Locations Back;Neck;Shoulder Massage Therapy Technique Effleurage;Petrissage;Tunisian massage Response to treatment Decreased muscle tension onversion Zimmer saction, Provider Unknown - 12/08/2016 11:33 AM PDTFormatting of this note might be differen t from the original. Case Management by Justine Leung RN at 12/08/16 1133 Author: Justine Leung RN Service: (none) Author Type: Registered Nurse Filed: 12/08/16 1507 Date of Service: 12/08/16 1133 Status: Addendum Public Health Epidemiologist: Justine Leung RN (Registered Nurse) Related Notes: Original Note by Justine Leung RN (Registered Nurse) filed at 12/08/16 1 134 Discharge Planning: script for Eliquis faxed to Rx for cost Pt and pt spouse agree with co pay, Rx to deliver med bedside CM provided pt spouse with f/up # for FMLA paperwork and coupon for med. onver mallika Transaction, Provider Unknown - 12/08/2016 11:00 AM PDT Therapy Progress Note by Scott Curry PT at 12/08/16 1100 Author: Scott Curry PT Service: (none) Author Type: Physical Therapist Filed: 12/08/16 1301 Date of Service: 12/08/16 1100 Status: Addendum Public Health Epidemiologist: Scott Curry PT (Physical Therapist) Related Notes: Original Note by Scott Curry PT (Physical Therapist) filed at 12/08 1301 12/08/16 1100 PT Last Visit PT Received On 12/08/16 (Correct time: 12:00) Reason for Treatment Other (comment) (L4-S1 Fusion on 11/14/16; DIMAS PE and DVTs after) Requires PT Follow Up Yes Follow up PT Only? No Assistance Required 1 person Machine Set Up Operator Needed No Precautions Spinal Precautions Lumbar;TLSO on when upright Other Precautions Monitor Vitals/SpO2 strictly Other Comments Comments Patient in supine upon PT arrival; agreeable to participation. He denies any pain at rest and throughout activity, indicating mild soreness at time in his L hip but that it i s well managed with Tylenol that he received prior to this session. SpO2 monitored throughou t all activity. Patient assisted into bathroom 2 different times this session, able to have a BM - PT assisting with pericare. Reviewed lumbar precautions with patient and spouse, they are receptive and patient is attentive to his movement strategies. Patient progressed from the HPFW to a 4WW, as this is the device he has at home. Ed on safe 4WW management - use of brakes/seat/ emphasis on positioning to avoid forward flexed posture. Minimal dyspnea noted with 2L during activity, Spo2 maintained at 92%+ with activity and up to 96%+ post-activity. Discussed importance of frequent mobility, and planned for patient to mobilize approx every 2 hours today with staff to further promote his pulmonary function. Overall, patient is mob ilizing well. Vitals in supine: HR 60, BP 112/69, Spo2 90% w/ 2L (NC). Vitals in sitting aft er activity: HR 59, BP 190/99 (L upper arm), SpO2 94% w/ 2L (NC). BP reassessed and at 179/1 17. RN notified. BP after 5 minutes seated rest: 153/96. Pt in bed after activity, no new c omplaints. Cognition Overall Cognitive Status WFL Orientation Level Oriented Bed Mobility Sidelying to Sit Standby assist;Verbal instruction Sit to Sidelying Standby assist;Verbal instruction Transfers Sit to/from Stand Standby assist;Verbal instruction Mobility Ambulation Assistance Standby assist Maximal Ambulation Distance (feet) 160 ft + 20 Total Ambulation Distance (feet) 180 ft Distance limited by? Patient's ability Pattern Decreased rosita;Alternating;Forward flexed Assistive Device Walker 4 wheeled Modalities Modalities Other therapy Activity Tolerance Activity Tolerance Patient tolerated treatment without report of fatigue Nurse Made Aware NELLIE Huynh Safety Devices Safety Devices in Place (call light; needs met) Restraints Initially in Place No Plan Treatment/Interventions Continue per Primary PT POC Progress Progressing toward goals Recommendation Recommendations Home Assist PT Ready for Discharge Yes Addendum: Pt independently donning TLSO with setup assist from PT. Education Completed: Education Topics: Current condition, PT POC and rationale for therapy, precautions speci fic to diagnosis- lumbar precautions and emphasis of positional changes/avoidance of 'BLT' a ctivities, safe mobility techniques, use of 4ww, DC impression and outpatient PT services on ce indicated by neurosurgery, importance of frequent mobility to promote function Completed with: Patient, Spouse / Significant Other Completed by: Verbal Education Response to Education: Stated Understanding Tip Valadez MD - 12/08/2016 10:46 AM PDT Progress Notes by Tip Raygoza MD at 12/08/16 1046 Author: Tip Raygoza MD Service: Hospitalist Author Type: Physician Filed: 12/08/16 1115 Date of Service: 12/08/16 104 Status: Signed Public Health Epidemiologist: Tip Raygoza MD (Physician) [facility] Service: Hospitalist Progress Note Pt: Patrice Lion AGE/SEX: 61 y.o. male ROOM: [address] [place] [address] : 1955 PCP: ISAAC BEE ADMIT DATE: 12/03/2016 TODAY'S DATE: 12/08/2016 Hospital Day/Hospital Course: LOS: 5 days The patient is 61 y.o. male with significant past medical history of hypertension, cervical spine fusion (06/2011), lumbar spine fusion (), depression, restless leg syndrome who presents with dyspnea Due to bilateral pulmonary embolism SUBJECTIVE: Patient seen and examine. His oxygen level has significantly improved. He is on 2 L now. I will check overnight pulse oximetry. No chest pain, RIOS. Had no orthopnea or PND. No Abdomi nal pain, N/V or fever. Still feeling tired and fatigued. No dizziness or lightheadedness. Scheduled Medications: enoxaparin 1 mg/kg Subcutaneous Q12H famotidine 20 mg Oral BID Or famotidine 20 mg Intravenous BID lisinopril 40 mg Oral Daily nadolol 40 mg Oral Daily pramipexole 0.5 mg Oral Daily sertraline 50 mg Oral Daily Continuous Infusions PRN Medications acetaminophen OR acetaminophen, fentaNYL OR fentaNYL, ondansetron OR ondansetro n, polyethylene glycol Allergy: No Known Allergies OBJECTIVE: Vitals: Patient Vitals for the past 24 hrs: BP Temp Temp src Pulse Resp SpO2 Weight 12/08/16 0914 - - - - - 94 % - 12/08/16 0818 133/84 97.5 F (36.4 C) Axillary 52 22 93 % - 12/08/16 0254 148/89 98.7 F (37.1 C) Axillary 60 22 100 % 112.9 kg (248 lb 14.4 oz) 12/07/16 2308 138/87 97.5 F (36.4 C) Oral 65 22 92 % - 12/07/16 1905 129/78 97.8 F (36.6 C) Oral 60 18 91 % - 12/07/16 1504 (!) 150/94 97.9 F (36.6 C) Oral 67 22 94 % - 12/07/16 1117 (!) 157/93 98 F (36.7 C) Oral 63 22 98 % - I&O Detailed Table: Intake/Output Summary (Last 24 hours) at 12/08/16 1046 Last data filed at 12/08/16 0948 Gross per 24 hour Intake 710 ml Output 790 ml Net -80 ml Patient Vitals for the past 96 hrs: Weight 12/08/16 0254 112.9 kg (248 lb 14.4 oz) 12/07/16 0354 117.7 kg (259 lb 8 oz) 12/06/16 0345 113.9 kg (251 lb) 12/05/16 0420 110.4 kg (243 lb 6.2 oz) Hemodynamics Last 24hrs: Physical Examination: Constitutional: He is lying flat comfortably. Does not look like in any distress. HEENT: Neck supple, no JVD, non icteric sclera. Cardiovascular: Normal rate, regular rhythm, normal heart sounds with S1 and S2, and intact distal pulses. Exam reveals no gallop and no friction rub. No murmur heard. Pulmonary/Chest: Chest clear bilateral. Abdominal: Soft nontender also positive Extremeties/Musculoskeletal: Normal range of motion.exhibits no tenderness. exhibits no ed butch. Neurological: Alert and oriented to person, place, and time. Has normal reflexes. No cran ial nerve deficit. Exhibits normal muscle tone. Coordination normal. Skin: Skin is warm and dry. No rash noted. No erythema. No pallor. Psychiatric: Has a normal mood and affect. Behavior is normal. Judgment normal. Not suicida l LABS: Recent Labs Lab 12/07/16 0615 12/06/16 0544 12/05/16 0209 WBC 4.98 5.39 7.21 HGB 12.0* 11.6* 11.9* HCT 35.5* 34.9* 36.1* PLT 178 214 256 NEUTOPHILPCT 66.33 66.91 69.90 MONOPCT 7.56 7.49 8.87 Recent Labs Lab 12/07/16 0615 12/06/16 0544 12/05/16 0209 12/04/16 05 NA 141 143 139 143 K 4.4 4.2 4.0 4.2 CL 107 107 106 107 CO2 29 29 27 28 BUN 11 14 16 18 CREATININE 0.87 1.0 1.0 1.0 PROT -- -- 6.4 6.6 BILITOT -- -- 0.6 0.7 ALT -- -- 51 56 AST -- -- 18 23 Phosphorus: Lab Results Component Value Date PHOS 4.4 12/04/2016 Recent Labs Lab 12/06/16 0544 12/05/1620812/04/16521 MG 2.4 2.3 2.3 Recent Labs Lab 12/07/16 0615 12/06/16 0544 12/05/16 0806 12/03/16 2334 APTT 34* 54* 63* < > 30 INR -- -- -- -- 1.1 < > = values in this interval not displayed. Recent Labs Lab 12/04/1652112/03/16 2335 CKTOTAL 56 65 TROPONINI 0.061 0.07 CKMBINDEX 6.6 6.2 Results No results found for the last 72 hours. PROBLEM LIST Principal Problem: Acute respiratory failure with hypoxemia (HCC) Active Problems: Pulmonary embolism (HCC) Disorder of right ventricle of heart Hypoxemia Essential hypertension Acute deep vein thrombosis (DVT) of left lower extremity (HCC) ASSESSMENT & PLAN The patient is 61 y.o. male with significant past medical history of hypertension, cervical spine fusion (06/2011), lumbar spine fusion (), depression, restless leg syndrome who presents with dyspnea Due to bilateral pulmonary embolismWith acute hypoxic respiratory fail ure Principal Problem: Acute respiratory failure with hypoxemia (HCC)With severe pulmonary hypertension He is on 2 L now. Feeling comfortable. I will switch him to oral Eliquis. He said he is n ot having any chest pain.. Echocardiogram showing RV strain. Also had a severe pulmonary hyp ertension Patient presented with the acute hypoxic respiratory failure. He is still requirin g 10L oxygen. He is still tachypneic. I discussed with washer operator is congruent with the pat ient. I will continue with heparin. I discussed with Dr. Solares, for now we will keep on anticoagulation. He had a subsegmental pulmonary embolism in the multiple areas. Pulmonary embolism (HCC) With acute deep vein thrombosis of left lower extremity. He is feeling comfortable. Disorder of right ventricle of heart RV strain with dilatation. Essential hypertension Blood pressure is appropriately controlled Discharge plan possibly tomorrow Patient diagnosed with: , and I agree with the following nutritional recommendations: TIP RAYGOZA MD, FACP 12/08/2016 10:46 AM Dictation software, [employer], used which may contain error for similar sounding words even af ter review. Personal communication requested for any clarification. Portions of this chart may have been copied from previous notes for continuity of care purp ose onversion Transac tion, Provider Unknown - 12/07/2016 2:00 PM PDTFormatting of this note might be different f rom the original. Therapy Progress Note by Scott Curry PT at 12/07/16 1400 Author: Scott Curry PT Service: (none) Author Type: Physical Therapist Filed: 12/07/16 1516 Date of Service: 12/07/16 1400 Status: Addendum Public Health Epidemiologist: Scott Curry PT (Physical Therapist) Related Notes: Original Note by Scott Curry PT (Physical Therapist) filed at 12/07 1515 12/07/16 1400 PT Last Visit PT Received On 12/07/16 Reason for Treatment Other (comment) (L4-S1 Fusion on 11/14/16; DIMAS PE and DVTs after) Requires PT Follow Up Awaiting tx order Follow up PT Only? No PT Eval/Reassessment Date 12/07/16 Assistance Required 1 person Machine Set Up Operator Needed No Home Environment Type of Home Home split level Home Exterior Layout 1-3 steps (1 small step) Home Interior Layout Lives on main level with bedroom/bathroom Bathroom Shower/Tub Tub/shower unit Bathroom Toilet Standard Bathroom Equipment Shower chair Home Equipment Walker front wheeled;Walker 4 wheeled;Cane single point Prior Function Level of Emerson Modified independent with functional mobility;Modified independent wi th ADLs;Modified independent with IADLs Falls in Past Year No Lives With Spouse;Adult child(ella) Receives Help From Family Leisure Hobbies-yes (Comment) (Hunting, Fishing) Comments Patient w/ a recent Lumbar Fusion on 11/14/16. Discharged home for 5 days and readm itted with DIMAS PEs and DVTs on 12/03. RLE Assessment RLE Assessment WFL LLE Assessment LLE Assessment WFL Cognition Overall Cognitive Status WFL Orientation Level Oriented Sensation Light Touch No apparent deficits Assessment of Patient Status Assessment of Patient Status Decreased ADL status;Decreased functional mobility;Decreased endurance;Precautions Prognosis Should progress with skilled therapy intervention Safety Devices Safety Devices in Place (call light; family present) Restraints Initially in Place No Precautions Spinal Precautions Lumbar;TLSO on when upright Other Precautions Monitor Vitals/SpO2 strictly Plan Treatment/Interventions Assist d/c plannning;Balance training;Bed mobility training;Therape utic exercise;Transfer training;Gait training;Stair training PT Frequency 5-7x/wk Care Duration (# of days) 7 # of days Recommendation Recommendations Home Assist 12/07/16 1400 PT Last Visit PT Received On 12/07/16 Reason for Treatment Other (comment) (L4-S1 Fusion on 11/14/16; DIMAS PE and DVTs after) Requires PT Follow Up Awaiting tx order Follow up PT Only? No PT Eval/Reassessment Date 12/07/16 Assistance Required 1 person Machine Set Up Operator Needed No Precautions Spinal Precautions Lumbar;TLSO on when upright Other Precautions Monitor Vitals/SpO2 strictly Other Comments Comments Chart reviewed, evaluation completed. Per MD H/p: Pt w/ significant past medical h istory of hypertension, cervical spine fusion (06/2011), lumbar spine fusion (), depres mallika, restless leg syndrome who presents with dyspnea Due to bilateral pulmonary embolism fo llowing a L4-S1 fusion (XLIF) on 11/14/16. Patient has a TLSO. He indicates he has questions regarding safe mobility and activity limitations. PT providing general education for lumbar precautions and activity parameters (safety with positioning, need for changing positioning frequently, use of pillows for positioning to maintain neutral positioning, BLTs). patient n ow down to 4L supp O2. Denies dyspnea at rest. He is eager to mobilize. HPFW trialed for thi s first time up to provide trunk support and reduce burden of activity. Pt with excellent ac tivity tolerance with use of this device today. Denies any dyspnea throughout. SpO2 monitore d throughout and maintained in the 90s primarily but noted to go down to 89%. Pt denies any pain when assessed. No complaints of numbness or weakness in either LE. He has good family s upport. He is able to don his TLSO indep. May benefit from additional log roll technique pra ctice. Patient in bed after activity, no new complaint. Vitals in supine at rest: HR 64, BP 150/92, SpO2 93% w/ 4L (NC). Vitals in supine after mobilizing: HR 68, BP 150/92, SpO2 94% w / 4L. SpO2 down to 89% on 4L. Cognition Overall Cognitive Status WFL Orientation Level Oriented Bed Mobility Rolling Standby assist Sidelying to Sit Standby assist (*HOB elevated) Sit to Sidelying Standby assist Transfers Sit to/from Stand Standby assist;Minimal assist (steadying/contact guard) Mobility Ambulation Assistance Standby assist;Minimal assist;Verbal instruction Maximal Ambulation Distance (feet) 50x2, 20 Total Ambulation Distance (feet) 120 ft Distance limited by? Therapist/staff discretion Pattern Decreased rosita;Alternating;Forward flexed ( for upright posture) Assistive Device Walker high platform Activity Tolerance Activity Tolerance Patient tolerated treatment without report of fatigue Nurse Made Aware NELLIE Nicole Safety Devices Safety Devices in Place (call light; family present) Restraints Initially in Place No Plan Treatment/Interventions Assist d/c plannning;Balance training;Bed mobility training;Therape utic exercise;Transfer training;Gait training;Stair training PT Frequency 5-7x/wk Care Duration (# of days) 7 # of days Recommendation Recommendations Home Assist Education Topics:Verbal Education provided by PT to patient/son including topics of Lumbar Precautions and safe mobility techniques that adhere; Importance of frequent mobility and po sitional changes following a fusion; ed on activity parameters for returning home. Education on PT POC and plan for increasing mobility progression prior to discharge. Low - 10533 Moderate - 69943 High - 31067 History no personal factors &/or comorbidities 1-2 personal factors &/or comorbidities 3 o r more personal factors &/or comorbidities Examination 1-2 elements 3 elements 4 or more elements Clinical Presentation stable evolving unstable Clinical Decision Making Complexity: Low 17742 Moderate 90219 High [id number] Allyson, Tip Christine MD - 12/07/2016 11:29 AM PDT Progress Notes by Tip Raygoza MD at 12/07/16 1129 Author: Tip Raygoza MD Service: Hospitalist Author Type: Physician Filed: 12/07/16 1232 Date of Service: 12/07/161128 Status: Signed Public Health Epidemiologist: Tip Raygoza MD (Physician) [facility] Service: Hospitalist Progress Note Pt: Patrice Lion AGE/SEX: 61 y.o. male ROOM: [address] [place] [address] : 1955 PCP: ISAAC BEE ADMIT DATE: 12/03/2016 TODAY'S DATE: 12/07/2016 Hospital Day/Hospital Course: LOS: 4 days The patient is 61 y.o. male with significant past medical history of hypertension, cervical spine fusion (06/2011), lumbar spine fusion (), depression, restless leg syndrome who presents with dyspnea Due to bilateral pulmonary embolism SUBJECTIVE: Patient seen and examine. He was short of breath while walking. Resting oxygen requirement is improved. Shortness of breath has improved as well. No chest pain, RIOS. Had no orthopne a or PND. No Abdominal pain, N/V or fever. Still feeling tired and fatigued. No dizziness or lightheadedness. Scheduled Medications: famotidine 20 mg Oral BID Or famotidine 20 mg Intravenous BID heparin (porcine) 5000 unit/0.5mL 80 Units/kg Intravenous Once lisinopril 40 mg Oral Daily nadolol 40 mg Oral Daily pramipexole 0.5 mg Oral Daily sertraline 50 mg Oral Daily Continuous Infusions heparin 50 units/mL 2,405 Units/hr (12/07/16 0736) sodium chloride (IV) 75 mL/hr at 12/06/16 1452 PRN Medications acetaminophen OR acetaminophen, fentaNYL OR fentaNYL, heparin (porcine) 5000 unit/0 .5mL, heparin (porcine) 5000 unit/0.5mL, ondansetron OR ondansetron, polyethylene glycol Allergy: No Known Allergies OBJECTIVE: Vitals: Patient Vitals for the past 24 hrs: BP Temp Temp src Pulse Resp SpO2 Weight 12/07/16 1117 (!) 157/93 98 F (36.7 C) Oral 63 22 98 % - 12/07/16 0822 (!) 158/104 98.6 F (37 C) Oral 53 21 95 % - 12/07/16 0354 (!) 146/95 97.8 F (36.6 C) Oral 58 22 97 % 117.7 kg (259 lb 8 oz) 12/06/16 2307 (!) 156/104 97.7 F (36.5 C) Oral 52 22 98 % - 12/06/16 1917 (!) 164/111 98 F (36.7 C) Oral 63 22 97 % - 12/06/16 1524 (!) 140/91 97.9 F (36.6 C) Oral 58 22 97 % - 12/06/16 1408 - - - - - 94 % - 12/06/16 1326 - - - - - 94 % - I&O Detailed Table: Intake/Output Summary (Last 24 hours) at 12/07/16 1129 Last data filed at 12/07/16 0749 Gross per 24 hour Intake 3606 ml Output 500 ml Net 3106 ml Patient Vitals for the past 96 hrs: Weight 12/07/16 0354 117.7 kg (259 lb 8 oz) 12/06/16 0345 113.9 kg (251 lb) 12/05/16 0420 110.4 kg (243 lb 6.2 oz) 12/04/16 0023 109.4 kg (241 lb 2.9 oz) Hemodynamics Last 24hrs: Physical Examination: Constitutional: He is sitting comfortably. He is not in any kind of distress. He is talking to me appropriately HEENT: Neck supple, no JVD, non icteric sclera. Cardiovascular: Normal rate, regular rhythm, normal heart sounds with S1 and S2, and intact distal pulses. Exam reveals no gallop and no friction rub. No murmur heard. Pulmonary/Chest: Effort normal and breath sounds normal. No stridor. No respiratory distres s. no wheezes. Slight crackles. exhibits no tenderness. Abdominal: Soft. Bowel sounds are normal. exhibits no distension and no mass. There is no t enderness. There is no rebound and no guarding. Extremeties/Musculoskeletal: Normal range of motion.exhibits no tenderness. exhibits no ed butch. Neurological: Alert and oriented to person, place, and time. Has normal reflexes. No cran ial nerve deficit. Exhibits normal muscle tone. Coordination normal. Skin: Skin is warm and dry. No rash noted. No erythema. No pallor. Psychiatric: Has a normal mood and affect. Behavior is normal. Judgment normal. Not suicida l LABS: Recent Labs Lab 12/07/1661412/06/1654312/05/16208 WBC 4.98 5.39 7.21 HGB 12.0* 11.6* 11.9* HCT 35.5* 34.9* 36.1* PLT 178 214 256 NEUTOPHILPCT 66.33 66.91 69.90 MONOPCT 7.56 7.49 8.87 Recent Labs Lab 12/07/1661412/06/1654312/05/1620812/04/16521 NA 141 143 139 143 K 4.4 4.2 4.0 4.2 CL 107 107 106 107 CO2 29 29 27 28 BUN 11 14 16 18 CREATININE 0.87 1.0 1.0 1.0 PROT -- -- 6.4 6.6 BILITOT -- -- 0.6 0.7 ALT -- -- 51 56 AST -- -- 18 23 Phosphorus: Lab Results Component Value Date PHOS 4.4 12/04/2016 Recent Labs Lab 12/06/1654312/05/1620812/04/16521 MG 2.4 2.3 2.3 Recent Labs Lab 12/07/1661412/06/1654312/05/16 0806 12/03/16 2334 APTT 34* 54* 63* < > 30 INR -- -- -- -- 1.1 < > = values in this interval not displayed. Recent Labs Lab 12/04/1652112/03/16 2335 CKTOTAL 56 65 TROPONINI 0.061 0.07 CKMBINDEX 6.6 6.2 Results No results found for the last 72 hours. PROBLEM LIST Principal Problem: Acute respiratory failure with hypoxemia (HCC) Active Problems: Pulmonary embolism (HCC) Disorder of right ventricle of heart Hypoxemia Essential hypertension Acute deep vein thrombosis (DVT) of left lower extremity (HCC) ASSESSMENT & PLAN The patient is 61 y.o. male with significant past medical history of hypertension, cervical spine fusion (06/2011), lumbar spine fusion (), depression, restless leg syndrome who presents with dyspnea Due to bilateral pulmonary embolismWith acute hypoxic respiratory fail ure Principal Problem: Acute respiratory failure with hypoxemia (HCC)With severe pulmonary hypertension He is on 4 L now.. Still short of breath while walking. I will switch him to Lovenox today . He said he is not having any chest pain.. Echocardiogram showing RV strain. Also had a sev ere pulmonary hypertension Patient presented with the acute hypoxic respiratory failure. He is still requiring 10L oxygen. He is still tachypneic. I discussed with washer operator is congr uent with the patient. I will continue with heparin. I discussed with Dr. Solares, for now we will keep on anticoagulation. He had a subsegmental pulmonary embolism in the multiple areas. Pulmonary embolism (HCC) With acute deep vein thrombosis of left lower extremity. Already on heparin. His hypoxia h as improved Disorder of right ventricle of heart RV strain with dilatation. Essential hypertension Blood pressure is appropriately controlled at this time Renal Kidney Function has been stable Endocrinology: He is not diabetic. Neurology: Patient is mentating okay for now. GI: On famotidine Discharge plan possibly couple of days. Patient diagnosed with: , and I agree with the following nutritional recommendations: TIP RAYGOZA MD, FACP 12/07/2016 11:29 AM Dictation software, [email or web address], used which may contain error for similar sounding words even af ter review. Personal communication requested for any clarification. Portions of this chart may have been copied from previous notes for continuity of care purp ose onversion Transac tion, Provider Unknown - 12/06/2016 3:00 PM PDTFormatting of this note might be different f rom the original. Nurse Progress Note by Skylar Lucio RN at 12/06/16 1500 Author: Skylar Lucio RN Service: (none) Author Type: Registered Nurse Filed: 12/06/16 1553 Date of Service: 12/06/16 1500 Status: Addendum Public Health Epidemiologist: Skylar Lucio RN (Registered Nurse) Related Notes: Original Note by Skylar Lucio RN (Registered Nurse) filed at 12/06/16 1538 Pt c/o increase shortness of breath after using commode. Pt is currently lying in bed with HOB 30 degrees. Saturations 95% on oxymask 4 L. RR 20 mildly labored. Lungs diminished bu t unchanged from previous assessment. Skin P/W/D. Pt states that he feels like he needs mor e air. Increased oxygen to 6 L oxymask and raised HOB. Instructed patient about exertional shortness of breath r/t PE. Instructed patient to notify RN if shortness of breath does no t resolve with rest. Skylar Lucio RN onver mallika Transaction, Provider Unknown - 12/06/2016 11:32 AM PDT Case Management by Justine Leung RN at 12/06/16 1132 Author: Justine Leung RN Service: (none) Author Type: Registered Nurse Filed: 12/06/16 1701 Date of Service: 12/06/16 1132 Status: Addendum Public Health Epidemiologist: Justine Leung RN (Registered Nurse) Related Notes: Original Note by Justine Leung RN (Registered Nurse) filed at 12/06/16 1 134 Discharge Planning: CM spoke to pt spouse re request for sig on FMLA, pt spouse to fax ally rs, CM to cont to follow Papers received from spouse and from hospitalist codarleen, pt signed paperwork, CM faxed to ren hanna for follow up. Tip Valadez MD - 12/06/2016 10:36 AM PDT Progress Notes by Tip Raygoza MD at 12/06/16 1036 Author: Tip Raygoza MD Service: Hospitalist Author Type: Physician Filed: 12/06/16 1041 Date of Service: 12/06/16 103 Status: Signed Public Health Epidemiologist: Tip Raygoza MD (Physician) [facility] Service: Hospitalist Progress Note Pt: Patrice Lion AGE/SEX: 61 y.o. male ROOM: [address] [place] [address] : 1955 PCP: ISAAC BEE ADMIT DATE: 12/03/2016 TODAY'S DATE: 12/06/2016 Hospital Day/Hospital Course: LOS: 3 days The patient is 61 y.o. male with significant past medical history of hypertension, cervical spine fusion (06/2011), lumbar spine fusion (), depression, restless leg syndrome who presents with dyspnea Due to bilateral pulmonary embolism SUBJECTIVE: Patient seen and examine. He is feeling better today. Oxygen requirement has improved. Shor tness of breath has improved as well. No chest pain, RIOS. Had no orthopnea or PND. No Abdom inal pain, N/V or fever. Still feeling tired and fatigued. No dizziness or lightheadedness. Scheduled Medications: famotidine 20 mg Oral BID Or famotidine 20 mg Intravenous BID heparin (porcine) 5000 unit/0.5mL 80 Units/kg Intravenous Once lisinopril 40 mg Oral Daily sertraline 50 mg Oral Daily Continuous Infusions heparin 50 units/mL 2,190 Units/hr (12/06/16 0943) sodium chloride (IV) 75 mL/hr at 12/05/16 1225 PRN Medications acetaminophen OR acetaminophen, fentaNYL OR fentaNYL, heparin (porcine) 5000 unit/0 .5mL, heparin (porcine) 5000 unit/0.5mL, ondansetron OR ondansetron, polyethylene glycol Allergy: No Known Allergies OBJECTIVE: Vitals: Patient Vitals for the past 24 hrs: BP Temp Temp src Pulse Resp SpO2 Weight 12/06/16 0735 (!) 169/101 96.7 F (35.9 C) Oral 67 24 96 % - 12/06/16 0345 (!) 161/106 97.7 F (36.5 C) Axillary 73 22 94 % 113.9 kg (251 lb) 12/05/16 2333 154/85 97.9 F (36.6 C) - 83 22 96 % - 12/05/16 1955 (!) 158/91 98.9 F (37.2 C) Axillary 93 22 95 % - 12/05/16 1518 130/89 99.3 F (37.4 C) Axillary 81 24 97 % - 12/05/16 1218 (!) 140/91 96.9 F (36.1 C) Axillary 69 26 95 % - I&O Detailed Table: Intake/Output Summary (Last 24 hours) at 12/06/16 1036 Last data filed at 12/06/16 0603 Gross per 24 hour Intake 1020 ml Output 400 ml Net 620 ml Patient Vitals for the past 96 hrs: Weight 12/06/16 0345 113.9 kg (251 lb) 12/05/16 0420 110.4 kg (243 lb 6.2 oz) 12/04/16 0023 109.4 kg (241 lb 2.9 oz) Hemodynamics Last 24hrs: Physical Examination: Constitutional: He sitting on a chair. He is not struggling for air and he said he had his breakfast HEENT: Neck supple, no JVD, non icteric sclera. Cardiovascular: Normal rate, regular rhythm, normal heart sounds with S1 and S2, and intact distal pulses. Exam reveals no gallop and no friction rub. No murmur heard. Pulmonary/Chest: Effort normal and breath sounds normal. No stridor. No respiratory distres s. no wheezes. no rales. exhibits no tenderness. Abdominal: Soft. Bowel sounds are normal. exhibits no distension and no mass. There is no t enderness. There is no rebound and no guarding. Extremeties/Musculoskeletal: Normal range of motion.exhibits no tenderness. exhibits no ed butch. Neurological: Alert and oriented to person, place, and time. Has normal reflexes. No cran ial nerve deficit. Exhibits normal muscle tone. Coordination normal. Skin: Skin is warm and dry. No rash noted. No erythema. No pallor. Psychiatric: Has a normal mood and affect. Behavior is normal. Judgment normal. Not suicida l LABS: Recent Labs Lab 12/06/16 0544 12/05/16 0209 12/04/16 0522 WBC 5.39 7.21 7.18 HGB 11.6* 11.9* 12.5* HCT 34.9* 36.1* 37.5* PLT 214 256 257 NEUTOPHILPCT 66.91 69.90 72.91 MONOPCT 7.49 8.87 8.55 Recent Labs Lab 12/06/1654312/05/1620812/04/16 0522 NA 143 139 143 K 4.2 4.0 4.2 CL 107 106 107 CO2 29 27 28 BUN 14 16 18 CREATININE 1.0 1.0 1.0 PROT -- 6.4 6.6 BILITOT -- 0.6 0.7 ALT -- 51 56 AST -- 18 23 Phosphorus: Lab Results Component Value Date PHOS 4.4 12/04/2016 Recent Labs Lab 12/06/1654312/05/1620812/04/16521 MG 2.4 2.3 2.3 Recent Labs Lab 12/06/1654312/05/16 0806 12/05/1620812/03/16 2334 APTT 54* 63* 54* < > 30 INR -- -- -- -- 1.1 < > = values in this interval not displayed. Recent Labs Lab 12/04/1652112/03/16 2335 CKTOTAL 56 65 TROPONINI 0.061 0.07 CKMBINDEX 6.6 6.2 Results No results found for the last 72 hours. PROBLEM LIST Principal Problem: Acute respiratory failure with hypoxemia (HCC) Active Problems: Pulmonary embolism (HCC) Disorder of right ventricle of heart Hypoxemia Essential hypertension Acute deep vein thrombosis (DVT) of left lower extremity (HCC) ASSESSMENT & PLAN The patient is 61 y.o. male with significant past medical history of hypertension, cervical spine fusion (06/2011), lumbar spine fusion (), depression, restless leg syndrome who presents with dyspnea Due to bilateral pulmonary embolismWith acute hypoxic respiratory fail ure Principal Problem: Acute respiratory failure with hypoxemia (HCC)With severe pulmonary hypertension He is comfortable today. His oxygen requirement has significantly improved. He is comforta ble. He said he is not having any chest pain.. Echocardiogram showing RV strain. Also had a severe pulmonary hypertension Patient presented with the acute hypoxic respiratory failure. He is still requiring 10L oxygen. He is still tachypneic. I discussed with washer operator is co ngruent with the patient. I will continue with heparin. I discussed with Dr. Solares, for now w hugo will keep on anticoagulation. He had a subsegmental pulmonary embolism in the multiple are as. Pulmonary embolism (HCC) With acute deep vein thrombosis of left lower extremity. Already on heparin. His hypoxia h as improved Disorder of right ventricle of heart RV strain with dilatation. Essential hypertension Blood pressure is appropriately controlled at this time Renal Kidney Function has been stable Endocrinology: He is not diabetic. Neurology: Patient is mentating okay for now. GI: On famotidine Patient diagnosed with: , and I agree with the following nutritional recommendations: TIP RAYGOZA MD, FACP 12/06/2016 10:36 AM Dictation software, [email or web address], used which may contain error for similar sounding words even af ter review. Personal communication requested for any clarification. Portions of this chart may have been copied from previous notes for continuity of care purp ose alik, Tip Christine MD - 12/05/2016 11:24 AM PDT Progress Notes by Tip Raygoza MD at 12/05/16 1124 Author: Tip Raygoza MD Service: Hospitalist Author Type: Physician Filed: 12/05/16 1135 Date of Service: 12/05/16 1124 Status: Signed Public Health Epidemiologist: Tip Raygoza MD (Physician) [facility] Service: Hospitalist Progress Note Pt: Patrice Lion AGE/SEX: 61 y.o. male ROOM: 4455/4455-1 : 1955 PCP: ISAAC BEE ADMIT DATE: 12/03/2016 TODAY'S DATE: 12/05/2016 Hospital Day/Hospital Course: LOS: 2 days The patient is 61 y.o. male with significant past medical history of hypertension, cervical spine fusion (06/2011), lumbar spine fusion (), depression, restless leg syndrome who presents with dyspnea Due to bilateral pulmonary embolism SUBJECTIVE: Patient seen and examine. His oxygen requirement went up to 12 L. He is still tachypneic. B ut he said he is feeling better than yesterday. No chest pain, RIOS. Had no orthopnea or PN D. No Abdominal pain, N/V or fever. Still feeling tired and fatigued. No dizziness or lighth eadedness. Scheduled Medications: famotidine 20 mg Oral BID Or famotidine 20 mg Intravenous BID heparin (porcine) 5000 unit/0.5mL 80 Units/kg Intravenous Once lisinopril 40 mg Oral Daily sertraline 50 mg Oral Daily Continuous Infusions heparin 50 units/mL 2,190 Units/hr (12/05/16 0928) sodium chloride (IV) 75 mL/hr at 12/05/16 0806 PRN Medications acetaminophen OR acetaminophen, fentaNYL OR fentaNYL, heparin (porcine) 5000 unit/0 .5mL, heparin (porcine) 5000 unit/0.5mL, ondansetron OR ondansetron, polyethylene glycol Allergy: No Known Allergies OBJECTIVE: Vitals: Patient Vitals for the past 24 hrs: BP Temp Temp src Pulse Resp SpO2 Weight 12/05/16 1034 138/90 98.1 F (36.7 C) Oral 83 22 93 % - 12/05/16 0822 (!) 144/104 97.9 F (36.6 C) Oral 75 20 95 % - 12/05/16 0420 - - - - - - 110.4 kg (243 lb 6.2 oz) 12/05/16 0413 145/88 97.8 F (36.6 C) Oral 79 22 96 % - 12/04/16 2315 (!) 151/91 98 F (36.7 C) Oral 90 18 92 % - 12/04/16 1922 (!) 149/96 98.5 F (36.9 C) Oral 89 22 96 % - 12/04/16 1542 (!) 134/94 96.9 F (36.1 C) Oral 85 24 94 % - I&O Detailed Table: Intake/Output Summary (Last 24 hours) at 12/05/16 1124 Last data filed at 12/05/16 1038 Gross per 24 hour Intake 1310 ml Output 150 ml Net 1160 ml Patient Vitals for the past 96 hrs: Weight 12/05/16 0420 110.4 kg (243 lb 6.2 oz) 12/04/16 0023 109.4 kg (241 lb 2.9 oz) Hemodynamics Last 24hrs: Physical Examination: Constitutional: He is awake and alert and talking to me. Does not look like in any distress . HEENT: Neck supple, no JVD, non icteric sclera. Cardiovascular: Normal rate, regular rhythm, normal heart sounds with S1 and S2, and intact distal pulses. Exam reveals no gallop and no friction rub. No murmur heard. Pulmonary/Chest: Effort normal and breath sounds normal. No stridor. No respiratory distres s. no wheezes. no rales. exhibits no tenderness. Abdominal: Soft. Bowel sounds are normal. exhibits no distension and no mass. There is no t enderness. There is no rebound and no guarding. Extremeties/Musculoskeletal: Normal range of motion.exhibits no tenderness. exhibits no ed butch. Neurological: Alert and oriented to person, place, and time. Has normal reflexes. No cran ial nerve deficit. Exhibits normal muscle tone. Coordination normal. Skin: Skin is warm and dry. No rash noted. No erythema. No pallor. Psychiatric: Has a normal mood and affect. Behavior is normal. Judgment normal. Not suicida l LABS: Recent Labs Lab 12/05/1620812/04/16 0522 WBC 7.21 7.18 HGB 11.9* 12.5* HCT 36.1* 37.5* PLT 256 257 NEUTOPHILPCT 69.90 72.91 MONOPCT 8.87 8.55 Recent Labs Lab 12/05/1620812/04/16 0522 NA 139 143 K 4.0 4.2 CL 106 107 CO2 27 28 BUN 16 18 CREATININE 1.0 1.0 PROT 6.4 6.6 BILITOT 0.6 0.7 ALT 51 56 AST 18 23 Phosphorus: Lab Results Component Value Date PHOS 4.4 12/04/2016 Recent Labs Lab 12/05/1620812/04/16 0522 MG 2.3 2.3 Recent Labs Lab 12/05/16 0806 12/05/1620812/04/16 1942 12/03/16 2334 APTT 63* 54* 40* < > 30 INR -- -- -- -- 1.1 < > = values in this interval not displayed. Recent Labs Lab 12/04/16 0522 12/03/16 2335 CKTOTAL 56 65 TROPONINI 0.061 0.07 CKMBINDEX 6.6 6.2 Results No results found for the last 72 hours. PROBLEM LIST Principal Problem: Acute respiratory failure with hypoxemia (HCC) Active Problems: Pulmonary embolism (HCC) Disorder of right ventricle of heart Hypoxemia Essential hypertension Acute deep vein thrombosis (DVT) of left lower extremity (HCC) ASSESSMENT & PLAN The patient is 61 y.o. male with significant past medical history of hypertension, cervical spine fusion (06/2011), lumbar spine fusion (), depression, restless leg syndrome who presents with dyspnea Due to bilateral pulmonary embolismWith acute hypoxic respiratory fail ure Principal Problem: Acute respiratory failure with hypoxemia (HCC)With severe pulmonary hypertension He is instructed respiratory distress. Her REQUIREMENT went up to 12 L. He said he is feel ing better. Echocardiogram showing RV strain. Also had a severe pulmonary hypertension Patie nt presented with the acute hypoxic respiratory failure. He is still requiring 10L oxygen. H e is still tachypneic. I discussed with washer operator is congruent with the patient. I will co ntinue with heparin. I discussed with Dr. Solares, for now we will keep on anticoagulation. He had a subsegmental pulmonary embolism in the multiple areas. Pulmonary embolism (HCC) With acute deep vein thrombosis of left lower extremity. Already on heparin. Still hypoxic . Disorder of right ventricle of heart RV strain with dilatation. Essential hypertension Blood pressure is appropriately controlled at this time Renal Kidney Function has been stable Endocrinology: He is not diabetic. Neurology: Patient is mentating okay for now. GI: On famotidine Patient diagnosed with: , and I agree with the following nutritional recommendations: TIP RAYGOZA MD, FACP 12/05/2016 11:24 AM Dictation software, [email or web address], used which may contain error for similar sounding words even af ter review. Personal communication requested for any clarification. Portions of this chart may have been copied from previous notes for continuity of care purp ose onversion Transac tion, Provider Unknown - 12/05/2016 6:46 AM PDTFormatting of this note might be different f rom the original. Nurse Progress Note by Shu Amos RN at 12/05/16645 Author: Shu Amos RN Service: (none) Author Type: Registered Nurse Filed: 12/05/16649 Date of Service: 12/05/16645 Status: Signed Public Health Epidemiologist: Shu Amos RN (Registered Nurse) Pt had episode of HR down to upper 40's then came right back to 70's. HR currently 60's to 80's. Pt on 12 L O2 Oxymask O2 92 to 96, will desat to upper 80's when up to BSC. Pt radha es pain. Heparin drip infusing APTT was 54, therapeutic x 1, next APTT at 0800. Pt remains in enteric isolation. Otherwise hourly rounding uneventful. 24 hour chart check complete onver mallika Transaction, Provider Unknown - 12/04/2016 6:55 PM PDT Nurse Progress Note by Merline Tejeda RN at 12/04/161854 Author: Merline Tejeda RN Service: (none) Author Type: Registered Nurse Filed: 12/04/161857 Date of Service: 12/04/161854 Status: Signed Public Health Epidemiologist: Merline Tejeda RN (Registered Nurse) Pt remains on 10-12L oxymask w/ O2 saturations 93-96%. Pt denies chest pain, or sensation o f SOB but is dyspneic w/ RR of 22-24 at rest. APTT therapeutic X1, Next aPTT due at 1945 per protocol. Pt having multiple loose stools throughout day, placed on contact enteric precaut ions per protocol. notified and MD states no C. Diff testing at this time. Merline Tejeda RN aljanine, Tip Christine MD - 12/04/2016 10:55 AM PDT Progress Notes by Tip Raygoza MD at 12/04/16 6425 Author: Tip Raygoza MD Service: Hospitalist Author Type: Physician Filed: 12/04/16 1377 Date of Service: 12/04/16 1055 Status: Signed Public Health Epidemiologist: Tip Raygoza MD (Physician) [facility] Service: Hospitalist Progress Note Pt: Patrice Lion AGE/SEX: 61 y.o. male ROOM: [facility]54455-1 : 1955 PCP: ISAAC BEE ADMIT DATE: 12/03/2016 TODAY'S DATE: 12/04/2016 Hospital Day/Hospital Course: LOS: 1 day The patient is 61 y.o. male with significant past medical history of hypertension, cervical spine fusion (06/2011), lumbar spine fusion (), depression, restless leg syndrome who presents with dyspnea Due to bilateral pulmonary embolism SUBJECTIVE: Patient seen and examine. He is still short of breath and tachypneic. No chest pain, RIOS. N o cough on recumbency. Had no orthopnea or PND. No Abdominal pain, N/V or fever. Still feeli ng tired and fatigued. No dizziness or lightheadedness. Scheduled Medications: famotidine 20 mg Oral BID Or famotidine 20 mg Intravenous BID heparin (porcine) 5000 unit/0.5mL 80 Units/kg Intravenous Once lisinopril 40 mg Oral Daily sertraline 50 mg Oral Daily Continuous Infusions heparin 50 units/mL 1,970 Units/hr (12/04/16 0701) sodium chloride (IV) 75 mL/hr at 12/03/16 2333 PRN Medications acetaminophen OR acetaminophen, fentaNYL OR fentaNYL, heparin (porcine) 5000 unit/0 .5mL, heparin (porcine) 5000 unit/0.5mL, ondansetron OR ondansetron, polyethylene glycol Allergy: No Known Allergies OBJECTIVE: Vitals: Patient Vitals for the past 24 hrs: BP Temp Temp src Pulse Resp SpO2 Height Weight 12/04/16 0801 (!) 142/103 99.9 F (37.7 C) Oral 85 24 93 % - - 12/04/16 0349 (!) 149/91 97.9 F (36.6 C) Oral 78 18 93 % - - 12/04/16 0023 - - - - - - - 109.4 kg (241 lb 2.9 oz) 12/03/16 2259 (!) 145/95 - - 82 - 95 % - - 12/03/16 2153 (!) 138/103 99.5 F (37.5 C) Axillary 83 28 96 % 1.778 m (5' 10") - I&O Detailed Table: No intake or output data in the 24 hours ending 12/04/16 1055 Patient Vitals for the past 96 hrs: Weight 12/04/16 0023 109.4 kg (241 lb 2.9 oz) Hemodynamics Last 24hrs: Physical Examination: Constitutional: Alert and oriented to person, place, and time. Appears well-developed and w ell-nourished. HEENT: Neck supple, no JVD, non icteric sclera. Cardiovascular: Normal rate, regular rhythm, normal heart sounds with S1 and S2, and intact distal pulses. Exam reveals no gallop and no friction rub. No murmur heard. Pulmonary/Chest: Effort normal and breath sounds normal. No stridor. No respiratory distres s. no wheezes. no rales. exhibits no tenderness. Abdominal: Soft. Bowel sounds are normal. exhibits no distension and no mass. There is no t enderness. There is no rebound and no guarding. Extremeties/Musculoskeletal: Normal range of motion.exhibits no tenderness. exhibits no ed butch. Neurological: Alert and oriented to person, place, and time. Has normal reflexes. No cran ial nerve deficit. Exhibits normal muscle tone. Coordination normal. Skin: Skin is warm and dry. No rash noted. No erythema. No pallor. Psychiatric: Has a normal mood and affect. Behavior is normal. Judgment normal. Not suicida l LABS: Recent Labs Lab 12/04/16521 WBC 7.18 HGB 12.5* HCT 37.5* PLT 257 NEUTOPHILPCT 72.91 MONOPCT 8.55 Recent Labs Lab 12/04/16521 NA 143 K 4.2 CL 107 CO2 28 BUN 18 CREATININE 1.0 PROT 6.6 BILITOT 0.7 ALT 56 AST 23 Phosphorus: Lab Results Component Value Date PHOS 4.4 12/04/2016 Recent Labs Lab 12/04/16 05 MG 2.3 Recent Labs Lab 12/04/1652112/03/16 2334 APTT 29 30 INR -- 1.1 Recent Labs Lab 10/16/17 0522 10/15/17 2335 CKTOTAL 56 65 TROPONINI 0.061 0.07 CKMBINDEX 6.6 6.2 Results No results found for the last 72 hours. PROBLEM LIST Principal Problem: Acute respiratory failure with hypoxemia (HCC) Active Problems: Pulmonary embolism (HCC) Disorder of right ventricle of heart Hypoxemia Essential hypertension Acute deep vein thrombosis (DVT) of left lower extremity (HCC) ASSESSMENT & PLAN The patient is 61 y.o. male with significant past medical history of hypertension, cervical spine fusion (06/2011), lumbar spine fusion (), depression, restless leg syndrome who presents with dyspnea Due to bilateral pulmonary embolismWith acute hypoxic respiratory fail ure Principal Problem: Acute respiratory failure with hypoxemia (HCC) Patient presented with the 2 hypoxic respiratory failure. He is still requiring albuterol oxygen. He is tachypneic. I discussed with washer operator is congruent with the patient. I will continue with heparin. I discussed with Dr. Solares, for now we will keep on anticoagulation. He had a subsegmental pulmonary embolism in the multiple areas. Pulmonary embolism (HCC) With acute deep vein thrombosis of left lower extremity. Already on heparin. Still hypoxic . Disorder of right ventricle of heart Uncontrolled at the stat echocardiogram now. As patient is having Hypoxemia Essential hypertension Blood pressure is appropriately controlled at this time Renal Kidney Function has been stable Endocrinology: He is not diabetic. Neurology: Patient is mentating okay for now. GI: On famotidine Critical care Spent more than 45 minutes reviewing patient's labs, diagnostic tests, examin ation of patient, discussing plan of care with patient and family, coordination of care and answered their questions. Patient diagnosed with: , and I agree with the following nutritional recommendations: TIP RAYGOZA MD, FACP 12/04/2016 10:55 AM Dictation software, [email or web address], used which may contain error for similar sounding words even af ter review. Personal communication requested for any clarification. Portions of this chart may have been copied from previous notes for continuity of care purp ose onversion Transac tion, Provider Unknown - 12/04/2016 10:03 AM PDTFormatting of this note might be different f rom the original. Case Management by Theodora Ferguson RN at 12/04/16 1003 Author: Theodora Ferguson RN Service: (none) Author Type: Registered Nurse Filed: 12/04/16 1006 Date of Service: 12/04/16 100 Status: Signed Public Health Epidemiologist: Theodora Ferguson RN (Registered Nurse) 12/04/16 6418 Discharge Planning Evaluation Admitting Diagnosis Pulmonary embolism Readmission No Living Arrangements Spouse/significant other Support Systems Spouse/significant other Type of Residence Private residence Steps to enter 6;4 Independent with ADL's Yes Independent with Mobility Yes Home Care Services No Caregiver after Discharge No Mental Status Oriented Prior functional status Uses walker Power of Traveling Operator No Anticipated Discharge Plan Post Acute Care Needs None at this time Plan communicated to patient/family Yes Resources Financial concerns No Transportation issues No Patient/Family concerns No Prescription Plan Yes Name of Pharmacy [facility] Previous home health equipment Yes (FWW and 4WW) Met with patient and discussed discharge planning, Pt is a 61 y.o., male admitted with pulm onary embolism. Patient is currently on a heparin gtt; wasn't previously on blood thinners-- CM to follow for new anticoagulant. Patient lives at home w/ Gely in [place]; he came in via ambulance and will transport him home upon d/c. Patient isn't on dialysis, couma din, or home O2 and receives no other medical services. Patient does have both a 4WW and FWW at home. No needs noted at this time; CM to follow if needs arise. Patient's PCP is: Isaac Bee Patient's insurance: [employer] Coverage concerns: no Medication coverage/concerns: no concerns Rx Bedside Delivery: TBD Community resources utilized / needed: no Assistance in transportation: to transport Identification of any specific education / training: no Barriers to Discharge / Alternative housing needed: TBD; pending PT recommendation Anticipated DCP: home--pending PT recommendation. CM to follow; possible new anticoagulant. Theodora Ferguson [phone] onver mallika Pulido Provider Unknown - 12/04/2016 7:35 AM PDT Nurse Progress Note by Shu Amos RN at 12/04/16 4128 Author: Shu Amos RN Service: (none) Author Type: Registered Nurse Filed: 12/04/1638 Date of Service: 12/04/16734 Status: Signed Public Health Epidemiologist: Shu Amos RN (Registered Nurse) Heparin drip started at 0705 AM. aPTT 29, 2500 unit bolus given per protocol. Next aPTT at 1300. Pt remains on 10 L oxymask, O2 92% to 96%. Pt dyspnic on exertion and at rest. Pt d enies pain. Otherwise hourly rounding uneventful onver mallika Transaction, Provider Unknown - 12/04/2016 1:30 AM PDT Pharmacy Note by Gisella Wren RPH at 12/04/16129 Author: Gisella Wren RPH Service: Pharmacy Author Type: Pharmacist Filed: 12/04/16129 Date of Service: 12/04/16129 Status: Signed Public Health Epidemiologist: Gisella Wren RPH (Pharmacist) Clinical Pharmacy Note: Renal Monitoring Height: 177.8 cm Weight: 109.4 kg Serum Creatinine: 1.11 mg/dL (from [facility]) Estimated creatinine clearance - Cockcroft-Gault CrCl: 73 mL/min. Pharmacy dosing for renal function per Dr. Bustamante. Currently there are no medications needing to be adjusted. Pharmacy will continue to monito r for changes in medication orders and in renal function and adjust accordingly per protocol . Gisella Wren PharmD 12/04/2016 1:29 AM onver mallika Transaction, Provider Unknown - 12/03/2016 9:30 PM PDT Nurse Progress Note by Shu Amos RN at 12/03/162129 Author: Shu Amos RN Service: (none) Author Type: Registered Nurse Filed: 12/04/16 0213 Date of Service: 12/03/162129 Status: Signed Public Health Epidemiologist: Shu Amos RN (Registered Nurse) Pt arrived to room 4455 via ambulance from [facility] . docume nted in this encounter H&P Notes Juan Diego Baltazar MD - 12/03/2016 10:01 PM PDTFormatting of this note might be diffe rent from the original. H&P by Juan Diego Baltazar MD at 12/03/162200 Author: Juan Diego Baltazar MD Service: Hospitalist Author Type: Physician Filed: 12/03/162299 Date of Service: 12/03/162200 Status: Signed Public Health Epidemiologist: Juan Diego Baltazar MD (Physician) [facility] Service: Hospitalist Admission History & Physical Date of Admission: 12/03/2016 Requesting Physician: [facility], Emergency Department Reason for Admission: PE History Obtained From: patient CHIEF COMPLAINT: Dyspnea HISTORY OF PRESENT ILLNESS The patient is 61 y.o. male with significant past medical history of hypertension, cervical spine fusion (06/2011), lumbar spine fusion (), depression, restless leg syndrome who presents with dyspnea Patient underwent fusion at L4-S1 for his spondylolisthesis of lumbar region on October 21. Patient was discharge home October daily. Patient refers that 4 days after discharge, November 22, he was having dyspnea at moderate ac tivity, not able to walk 30 feet. Of note, the patient refers not being taught how much he c ould move at home, but thinks that he was actually being relatively active. Yesterday, the patient was having dyspnea even at rest. Does refers bilateral lower extremi ty edema and orthopnea. Positive mild cough, nonproductive in nature, denies any episodes of hemoptysis. Also, denies any history of chest pain, fever, chills or night sweats. He went to the emergency department and CT PA was consistent with multiple bilateral PEs. E KG shows sinus rhythm without any acute ST changes, T-wave abnormalities in the anterolatera l leads. First set of cardiac enzymes is negative.Lovenox was given at 18:51. Patient was re quiring high oxygen flow to maintain his pulse oximetry; therefore, Emergency Department pro vider discussed the case with our washer operator, , who recommended transfer to [facility], IR consult in the morning, and admission to the medical floor at this point. REVIEW OF SYSTEMS Review of Systems Constitutional: Positive for fatigue. Negative for chills. HENT: Negative for postnasal drip and rhinorrhea. Respiratory: Positive for cough and shortness of breath. Negative for apnea, choking and wh eezing. Cardiovascular: Positive for leg swelling. Negative for chest pain and palpitations. Gastrointestinal: Negative for abdominal distention, abdominal pain, diarrhea, nausea and v omiting. Genitourinary: Negative for difficulty urinating and frequency. Musculoskeletal: Negative for arthralgias. Skin: Negative for color change. Neurological: Negative for dizziness, syncope and headaches. Psychiatric/Behavioral: Negative for agitation and confusion. No past medical history on file. No past surgical history on file. Immunizations: Influenza: Pneumoccocal: No Known Allergies Prescriptions Prior to Admission Medication Sig Dispense Refill Last Dose amoxicillin (AMOXIL) 875 MG tablet Take 875 mg by mouth 2 (two) times daily. 12/04/19 17 at 0900 furosemide (LASIX) 40 MG tablet Take 40 mg by mouth daily. 12/03/2016 at 1500 lisinopril (ZESTRIL) 40 MG tablet Take 40 mg by mouth daily. nadolol (CORGARD) 80 MG tablet Take 80 mg by mouth daily. omeprazole (PRILOSEC) 20 MG capsule Take 20 mg by mouth every morning before breakfast. oxyCODONE-acetaminophen (PERCOCET) 5-325 MG per tablet Take 1 tablet by mouth every 4 ( four) hours as needed for Pain. 12/03/2016 at 0800 potassium chloride (K-DUR) 10 MEQ tablet Take 20 mEq by mouth 2 (two) times daily with meals. pramipexole (MIRAPEX) 0.5 MG tablet Take 0.5 mg by mouth 3 (three) times daily. senna (SENOKOT) 8.6 MG tablet Take 1 tablet by mouth daily. sertraline (ZOLOFT) 50 MG tablet Take 50 mg by mouth daily. tizanidine (ZANAFLEX) 4 MG capsule Take 4 mg by mouth 3 (three) times daily. 12/03/19 17 at 1300 No family history on file. Social History Social History Marital status: Spouse name: N/A Number of children: N/A Years of education: N/A Occupational History Not on file. Social History Main Topics Smoking status: Never Smoker Smokeless tobacco: Never Used Alcohol use Not on file Drug use: Unknown Sexual activity: Not on file Other Topics Concern Not on file Social History Narrative No narrative on file PHYSICAL EXAM Vital Signs: BP (!) 138/103 (BP Location: Right upper arm) | Pulse 83 | Temp 99.5 F (37.5 C) (Axil chemo) | Resp 28 | Ht 1.778 m (5' 10") Physical Exam Constitutional: He is oriented to person, place, and time. He appears well-developed. HENT: Head: Normocephalic and atraumatic. Eyes: EOM are normal. Pupils are equal, round, and reactive to light. Neck: Neck supple. No JVD present. Cardiovascular: Normal rate, regular rhythm and normal heart sounds. Exam reveals no frict ion rub. No murmur heard. Pulmonary/Chest: Effort normal. No respiratory distress. He has no wheezes. He has rales in the right lower field. He exhibits no tenderness. Abdomina/Gl: Soft. He exhibits no distension and no mass. There is no tenderness. There is no guarding. Musculoskeletal: He exhibits no edema. Neurological: He is alert and oriented to person, place, and time. DATA Results No results found for the last 72 hours. PROBLEM LIST Principal Problem: Pulmonary embolism (HCC) Active Problems: Disorder of right ventricle of heart Hypoxemia Essential hypertension Labs from [facility] White blood cell 8, hemoglobin 13.7, hematocrit 40.9, platelet count 320 Sodium 141, potassium 4, chloride 104, LFTs within normal limits Troponin T-0.0 24 ASSESSMENT & PLAN Impression CTPA-multiple bilateral pulmonary emboli, with suspected developing pulmonary infarct in th e left lower lobe. Central pulmonary arteries appear prominent, suggesting some degree of pu lmonary hypertension. Reflux of contrast into the IVC and hepatic veins suggests some degree of right heart dysfunction. Troponin T - 0.024 (at [facility]). BNP-not done EKG-sinus rhythm, no acute ST changes, T-wave abnormalities in the anterolateral leads Assessment -Dyspnea. History and physical consistent with pulmonary embolisms. Concerning patient's hi gh oxygen requirements at this point. Blood pressure and heart rate stable, currently -Pulmonary embolus. Multiple bilateral PEs. CAT scan concerning for right ventricular dysfu nction from acute pulmonary hypertension. -Essential tremor -Hypertension Plan Admit to inpatient Nursing to do medication reconciliation Oxygen PRN to keep saturation > 90% Morning Hospitalist to consult IR for ? Benefit from thrombolysis Telemetry Cardiac enzymes 3, BNP Echocardiogram for further assessment of right side pressures Ultrasound lower extremity Patient received Lovenox at [facility], 18:51. Will start heparin drip tomorrow AM at 6:50 AM. Case discussed with the pharmacist and nurs ing Pending IR input will decide half-way anticoagulation plans Pain management Deep vein thrombosis GI prophylaxis CODE STATUS-full code Disposition: Inpatient Code Status: No Order Primary Care Physician: ISAAC Baltazar MD 12/03/2016 documented i n this encounter Consult Notes Marvin Barney MD - 12/04/2016 12:02 PM PDTFormatting of this note might be dif ferent from the original. Consult* by Marvin Barney MD at 12/04/16 1202 Author: Marvin Barney MD Service: Environmental Lawyer Author Type: Physician Filed: 12/04/16 1703 Date of Service: 12/04/16 1202 Status: Addendum Public Health Epidemiologist: Marvin Barney MD (Physician) Related Notes: Original Note by Marvin Barney MD (Physician) filed at 12/04/16 1632 Pt seen at the request of Dr. [email or web address] Briefly pt was admitted to the hospitalist's service for b/l PE following a lumbar surgery 3 weeks ago. Pt has been on lovenox and switched to heparin now. Pt currently lying in the bed comfortably- belly breathing which is usual for him. Vitals noted. Pt normotensive breathing in low 20's. Exam positive for LE edema and obesity but otherwise unremarkable. Labs and images reviewed. ECHO was been done at the time of exam, reviewed images with engineering technical writer. Some septal flattening noted. TR noted with Rt sided estimated pressures in the high 50's low 60's. Absent McConnel sign normal TAPSE. D/w Dr. Solares who given the distribution does not recommend catheter directed tPA. Recommendations: D/w Dr. Raygoza. To observe the patient on the acute care floor. No indication for ICU admiss ion at the time of exam. (No significant troponin leak/ECHO changes or hypotension doris class bogdan as submassive/massive PE). Pt does have what could be a new TR and increased rt sided pressures (although do not have a baseline ECHO to compare). Requested Dr. Raygoza to get an ABG if tachypnea worsens or oxygen requirement increases and notify me. Marvin Barney 12:13 PM 12/04/16 Please bill 35 min of high complexity care time. Addendum: Reviewed pt's ECHO. Final RVSP is high- estimated in the high 70's. Also RV is reported as severely dilated. The question here remains if the patient would benefit from anticoagulation- As symptoms have started > 10 days ago, thrombolysis may not help clear the already formed clot. Pt also has had a lumbar surgery less than 3 weeks ago. Pt has also been on heparin/lovenox for almost 2 days now. Given this information there seems to be more risk associated with administration of thromb olytics. Pt however has significant RV strain (an RVSP of 78 is unlikely to have developed secondary to an acute PE. Pt might have had underlying RV failure)- but it is not predictable as to w ho would decompensate and who wouldn't and this alone does not need ICU stay as patients can remain stable for days and then decompensate. Will update the family/patient of the findings. documented in this encounter Miscellaneous Notes Plan of Care - Conversion Transaction, Provider Unknown - 12/11/2016 1:16 AM PDT Plan of Care by Cornell Mckeon RN at 12/11/16115 Author: Cornell Mckeon RN Service: (none) Author Type: Registered Nurse Filed: 12/11/16115 Date of Service: 12/11/16115 Status: Signed Public Health Epidemiologist: Cornell Mckeon RN (Registered Nurse) Problem: Pain Goal: Patient's pain/discomfort is manageable Assess and monitor patient's pain using appropriate pain scale. Collaborate with interdisci plinary team and initiate plan and interventions as ordered. Re-assess patient's pain level approximately 1-2 hours after pain management intervention. Premedicate as needed. Outcome: Progressing Patient states that pain regimen is controlling pain. Pain is managed with Tylenol q6 PRN. lan o f Care - Conversion Transaction, Provider Unknown - 12/10/2016 9:42 AM PDTFormatting of thi s note might be different from the original. Plan of Care by Bonnie Jesus RN at 12/10/16941 Author: Bonnie Jesus RN Service: (none) Author Type: Registered Nurse Filed: 12/10/16941 Date of Service: 12/10/16941 Status: Signed Public Health Epidemiologist: Bonnie Jesus RN (Registered Nurse) Problem: Knowledge Deficit Goal: Patient will remain free from falls: High Risk ([place] 51+) Outcome: Progressing Patient using TLSO brace when ambulating. He is able to apply TLSO and align it. Patient ca lls appropriately, non skid socks are on and room is free of clutter. lan o f Care - Conversion Transaction, Provider Unknown - 12/10/2016 2:04 AM PDTFormatting of thi s note might be different from the original. Plan of Care by Cornell Mckeon RN at 12/10/16203 Author: Cornell Mckeon RN Service: (none) Author Type: Registered Nurse Filed: 12/10/16203 Date of Service: 12/10/16203 Status: Signed Public Health Epidemiologist: Cornell Mckeon RN (Registered Nurse) Problem: Knowledge Deficit Goal: Patient will remain free from falls: High Risk ([place] 51+) Outcome: Progressing Patient has remained free from falls. All safety measures in place. lan o f Care - Conversion Transaction, Provider Unknown - 12/09/2016 8:01 AM PDTFormatting of thi s note might be different from the original. Plan of Care by Bonnie Jesus RN at 12/09/16800 Author: Bonnie Jesus RN Service: (none) Author Type: Registered Nurse Filed: 12/09/16803 Date of Service: 12/09/16800 Status: Signed Public Health Epidemiologist: Bonnie Jesus RN (Registered Nurse) Knowledge Deficit Patient/family/caregiver demonstrates understanding of disease process, treatment plan, medications, and discharge instructions Progressing Knowledge Deficit Patient will remain free from falls: High Risk ([place] 51+) Progressing Patient given instruction on calling to get up and proper use of TLSO brace. Patient able t o place TLSO brace on properly and utilizes that call light appropriately. Room is free of c lutter to decrease fall risk. lan o f Care - Conversion Transaction, Provider Unknown - 12/09/2016 12:05 AM PDTFormatting of thi s note might be different from the original. Plan of Care by Faith Gracia RN at 12/09/164 Author: Faith Gracia RN Service: (none) Author Type: Registered Nurse Filed: 12/09/1610 Date of Service: 12/09/164 Status: Signed Public Health Epidemiologist: Faith Gracia RN (Registered Nurse) Pain Patient's pain/discomfort is manageable Progressing Patient able to express pain and discomfort and ask for medication when needed. lan o f Care - Conversion Transaction, Provider Unknown - 12/08/2016 9:14 AM PDTFormatting of thi s note might be different from the original. Plan of Care by Lino Ramirez RN at 12/08/16913 Author: Lino Ramirez RN Service: (none) Author Type: Registered Nurse Filed: 12/08/16913 Date of Service: 12/08/16913 Status: Signed Public Health Epidemiologist: Lino Ramirez RN (Registered Nurse) Anxiety Anxiety is at manageable level Progressing Hemodynamic Status Patient's vitals signs are stable Progressing Inadequate Gas Exchange Patient is adequately oxygenated and ventilation is improved Progressing Inadequate Tissue Perfusion - Venous Tissue perfusion is adequate - venous Progressing Knowledge Deficit Patient/family/caregiver demonstrates understanding of disease process, treatment plan, medications, and discharge instructions Progressing Knowledge Deficit Patient will remain free from falls: High Risk ([place] 51+) Progressing Pain Patient's pain/discomfort is manageable Progressing Safety LTG - Patient will demonstrate safety requirements appropriate to situation/environment Progressing lan o f Care - Conversion Transaction, Provider Unknown - 12/08/2016 4:00 AM PDTFormatting of thi s note might be different from the original. Plan of Care by Filippo Marcano RN at 12/08/16399 Author: Filippo Marcano RN Service: (none) Author Type: Registered Nurse Filed: 12/08/16400 Date of Service: 12/08/16399 Status: Signed Public Health Epidemiologist: Filippo Marcano RN (Registered Nurse) Problem: Knowledge Deficit Goal: Patient/family/caregiver demonstrates understanding of disease process, treatment nan n, medications, and discharge instructions Complete learning assessment and assess knowledge base. Outcome: Progressing Pt understands that his anticoagulation medication has changed. Comments: Pt's A/O and VSS. Pt on 4L O2 with NC/Oxymask. No acute events during shift. lan o f Care - Conversion Transaction, Provider Unknown - 12/07/2016 9:41 AM PDTFormatting of thi s note might be different from the original. Plan of Care by Bonnie Jesus RN at 12/07/16940 Author: Bonnie Jesus RN Service: (none) Author Type: Registered Nurse Filed: 12/07/16 0944 Date of Service: 12/07/16940 Status: Signed Public Health Epidemiologist: Bonnie Jesus RN (Registered Nurse) Knowledge Deficit Patient will remain free from falls: High Risk ([place] 51+) Progressing Knowledge Deficit Patient will remain free from falls: High Risk ([place] 51+) Progressing Patient up with asst. Patient is able to apply back brace independently and calls for abel tance appropriately. Hourly rounding performed. lan o f Care - Conversion Transaction, Provider Unknown - 12/07/2016 5:44 AM PDTFormatting of thi s note might be different from the original. Plan of Care by Bailee Cannon RN at 12/07/16543 Author: Bailee Cannon RN Service: (none) Author Type: Registered Nurse Filed: 12/07/1648 Date of Service: 12/07/16543 Status: Signed Public Health Epidemiologist: Bailee Cannon RN (Registered Nurse) Patient remained on 6 LPM on the oxymask throughout the night with O2 sats above 95%. Will try to wean O2 down this AM as tolerated. SBP 150's-160's through the night. Patient able to sleep comfortably with tylenol X 1 for headache. Inadequate Gas Exchange Patient is adequately oxygenated and ventilation is improved Progressing O2 sats remain above 95% on 6 LPM oxymask Pain Patient's pain/discomfort is manageable Progressing Patient's pain manageable at tolerable level with PRN tylenol lan o f Care - Conversion Transaction, Provider Unknown - 12/06/2016 9:56 AM PDTFormatting of thi s note might be different from the original. Plan of Care by Skylar Lucio RN at 12/06/16955 Author: Skylar Lucio RN Service: (none) Author Type: Registered Nurse Filed: 12/06/16955 Date of Service: 12/06/16955 Status: Signed Public Health Epidemiologist: Skylar Lucio RN (Registered Nurse) Problem: Inadequate Gas Exchange Goal: Patient is adequately oxygenated and ventilation is improved Assess and monitor vital signs, oxygen saturation, respiratory status to include rate, dept h, effort, and lung sounds, mental status, cyanosis, and labs (ABG's). Monitor effects of m edications that may sedate the patient. Collaborate with respiratory therapy to administer medications and treatments. Outcome: Progressing Oxygen saturations 96% and maintained while weaning down supplemental oxygen via oxymask. Denies shortness of breath, lungs clear. lan o f Care - Conversion Transaction, Provider Unknown - 12/06/2016 6:16 AM PDTFormatting of thi s note might be different from the original. Plan of Care by Bailee Cannon RN at 12/06/16615 Author: Bailee Cannon RN Service: (none) Author Type: Registered Nurse Filed: 12/06/16621 Date of Service: 12/06/16615 Status: Addendum Public Health Epidemiologist: Bailee Cannon RN (Registered Nurse) Related Notes: Original Note by Bailee Cannon RN (Registered Nurse) filed at 619 Patient had difficulty sleeping through the night. Patient given tylenol X 2 for 3/10 back pain d/t recent lumbar fusion. Patient has been able to wean down O2 this AM. Currently down to 8 LPM NC from 12 LPM at start of shift. O2 sats maintaining above 95%. Will continue to wean O2 as tolerated. Patient's APTT came back as 63 this AM, per protocol no change to hepa rin gtt. Next APTT to be drawn tomorrow AM. Inadequate Gas Exchange Patient is adequately oxygenated and ventilation is improved Progressing Patient's O2 sats have remained above 95% throughout the shift and patient is currently wea naomy down on supplemental oxygen. Pain Patient's pain/discomfort is manageable Progressing Patient's pain adequately managed with PRN tylenol. lan o f Care - Conversion Transaction, Provider Unknown - 12/05/2016 6:05 PM PDTFormatting of thi s note might be different from the original. Plan of Care by Julio Beard RN at 12/05/161804 Author: Julio Beard RN Service: (none) Author Type: Registered Nurse Filed: 12/05/161804 Date of Service: 12/05/161804 Status: Signed Public Health Epidemiologist: Julio Baerd RN (Registered Nurse) Problem: Inadequate Gas Exchange Goal: Patient is adequately oxygenated and ventilation is improved Assess and monitor vital signs, oxygen saturation, respiratory status to include rate, dept h, effort, and lung sounds, mental status, cyanosis, and labs (ABG's). Monitor effects of m edications that may sedate the patient. Collaborate with respiratory therapy to administer medications and treatments. Outcome: Progressing Patient is maintaining saturation above 92% Intervention: Encourage patient to cough and deep breathe Patient is coughing and deep breathing, breathing is shallow Intervention: Plan activities to conserve energy Patient is only up to the commode docume nted in this encounter Plan of Treatment Not on filedocumented as of this encounter Procedures + +--------+ + + + | Procedure Name | Priori | Date/Time | Associated Diagnosis | Comments | | | ty | | | | + +--------+ + + + | EXTERNAL LAB: CBC | Routin | 12/07/2016 | | Results for this | | | e | 6:15 AM | | procedure are in the | | | | PDT | | results section. | + +--------+ + + + | PTT | Routin | 12/07/2016 | | Results for this | | | e | 6:15 AM | | procedure are in the | | | | PDT | | results section. | + +--------+ + + + | BASIC METABOLIC | Routin | 12/07/2016 | | Results for this | | PANEL | e | 6:15 AM | | procedure are in the | | | | PDT | | results section. | + +--------+ + + + | EXTERNAL LAB: CBC | Routin | 12/06/2016 | | Results for this | | | e | 5:44 AM | | procedure are in the | | | | PDT | | results section. | + +--------+ + + + | PTT | Routin | 12/06/2016 | | Results for this | | | e | 5:44 AM | | procedure are in the | | | | PDT | | results section. | + +--------+ + + + | MAGNESIUM | Routin | 12/06/2016 | | Results for this | | | e | 5:44 AM | | procedure are in the | | | | PDT | | results section. | + +--------+ + + + | BASIC METABOLIC | Routin | 12/06/2016 | | Results for this | | PANEL | e | 5:44 AM | | procedure are in the | | | | PDT | | results section. | + +--------+ + + + | PTT | Routin | 12/05/2016 | | Results for this | | | e | 8:06 AM | | procedure are in the | | | | PDT | | results section. | + +--------+ + + + | EXTERNAL LAB: CBC | Routin | 12/05/2016 | | Results for this | | | e | 2:09 AM | | procedure are in the | | | | PDT | | results section. | + +--------+ + + + | PTT | Routin | 12/05/2016 | | Results for this | | | e | 2:09 AM | | procedure are in the | | | | PDT | | results section. | + +--------+ + + + | MAGNESIUM | Routin | 12/05/2016 | | Results for this | | | e | 2:09 AM | | procedure are in the | | | | PDT | | results section. | + +--------+ + + + | COMPREHENSIVE | Routin | 12/05/2016 | | Results for this | | METABOLIC PANEL | e | 2:09 AM | | procedure are in the | | | | PDT | | results section. | + +--------+ + + + | PTT | Routin | 12/04/2016 | | Results for this | | | e | 7:42 PM | | procedure are in the | | | | PDT | | results section. | + +--------+ + + + | PTT | Routin | 12/04/2016 | | Results for this | | | e | 1:01 PM | | procedure are in the | | | | PDT | | results section. | + +--------+ + + + | ECHO COMPLETE | Routin | 12/04/2016 | | Results for this | | | e | 12:00 PM | | procedure are in the | | | | PDT | | results section. | + +--------+ + + + | PTT | Routin | 12/04/2016 | | Results for this | | | e | 10:59 AM | | procedure are in the | | | | PDT | | results section. | + +--------+ + + + | VAS LOWER EXTREMITY | Routin | 12/04/2016 | | Results for this | | VENOUS BILATERAL | e | 5:38 AM | | procedure are in the | | | | PDT | | results section. | + +--------+ + + + | EXTERNAL LAB: CBC | Routin | 12/04/2016 | | Results for this | | | e | 5:22 AM | | procedure are in the | | | | PDT | | results section. | + +--------+ + + + | TROPONIN I | Routin | 12/04/2016 | | Results for this | | | e | 5:22 AM | | procedure are in the | | | | PDT | | results section. | + +--------+ + + + | CK-MB | Routin | 12/04/2016 | | Results for this | | | e | 5:22 AM | | procedure are in the | | | | PDT | | results section. | + +--------+ + + + | PTT | Routin | 12/04/2016 | | Results for this | | | e | 5:22 AM | | procedure are in the | | | | PDT | | results section. | + +--------+ + + + | PHOSPHORUS | Routin | 12/04/2016 | | Results for this | | | e | 5:22 AM | | procedure are in the | | | | PDT | | results section. | + +--------+ + + + | MAGNESIUM | Routin | 12/04/2016 | | Results for this | | | e | 5:22 AM | | procedure are in the | | | | PDT | | results section. | + +--------+ + + + | CK TOTAL | Routin | 12/04/2016 | | Results for this | | | e | 5:22 AM | | procedure are in the | | | | PDT | | results section. | + +--------+ + + + | BILIRUBIN, DIRECT | Routin | 12/04/2016 | | Results for this | | | e | 5:22 AM | | procedure are in the | | | | PDT | | results section. | + +--------+ + + + | COMPREHENSIVE | Routin | 12/04/2016 | | Results for this | | METABOLIC PANEL | e | 5:22 AM | | procedure are in the | | | | PDT | | results section. | + +--------+ + + + | ECG 12 LEAD | Routin | 12/04/2016 | | Results for this | | | e | 4:26 AM | | procedure are in the | | | | PDT | | results section. | + +--------+ + + + | TROPONIN I | Routin | 12/03/2016 | | Results for this | | | e | 11:35 PM | | procedure are in the | | | | PDT | | results section. | + +--------+ + + + | CK-MB | Routin | 12/03/2016 | | Results for this | | | e | 11:35 PM | | procedure are in the | | | | PDT | | results section. | + +--------+ + + + | CK TOTAL | Routin | 12/03/2016 | | Results for this | | | e | 11:35 PM | | procedure are in the | | | | PDT | | results section. | + +--------+ + + + | PTT | Routin | 12/03/2016 | | Results for this | | | e | 11:34 PM | | procedure are in the | | | | PDT | | results section. | + +--------+ + + + | PROTIME INR | Routin | 12/03/2016 | | Results for this | | | e | 11:34 PM | | procedure are in the | | | | PDT | | results section. | + +--------+ + + + | B TYPE NATRIURETIC | Routin | 12/03/2016 | | Results for this | | PEPTIDE | e | 11:34 PM | | procedure are in the | | | | PDT | | results section. | + +--------+ + + + documented in this encounter Results PTT (12/07/2016 6:15 AM PDT) + + + + + + | Component | Value | Ref Range | Performed | Pathologist | | | | | At | Signature | + + + + + + | aPTT, | 34 (H)Comment: Testing | 23 - 32 seconds | EXTERNAL | | | Patient | performed at [facility] [place];[address] | | LAB | | | | [address];[place], [place] | | | | | | [id number] | | | | + + + + + + + + | Specimen | + + | Blood specimen | | (specimen) | + + + +---------+ + + | Performing | Address | City/State/Zipcode | Phone Number | | Organization | | | | + +---------+ + + | EXTERNAL LAB | | | | + +---------+ + + External Lab: CBC (12/07/2016 6:15 AM PDT) + + + + + + | Component | Value | Ref Range | Performed | Pathologist | | | | | At | Signature | + + + + + + | WBC | 4.98 | 3.80 - 11.00 | EXTERNAL | | | | | K/uL | LAB | | + + + + + + | Non- | 3.93 (L) | 4.20 - 5.70 | EXTERNAL | | | Red Blood | | M/uL | LAB | | | Cells | | | | | | Counted | | | | | + + + + + + | Hemoglobin | 12.0 (L) | 13.2 - 17.0 | EXTERNAL | | | | | g/dL | LAB | | + + + + + + | Hematocrit, | 35.5 (L) | 39.0 - 50.0 % | EXTERNAL | | | POC | | | LAB | | + + + + + + | MCV | 90.3 | 80.0 - 100.0 fl | EXTERNAL | | | | | | LAB | | + + + + + + | MCH | 30.5 | 27.0 - 34.0 pg | EXTERNAL | | | | | | LAB | | + + + + + + | MCHC | 33.7 | 32.0 - 35.5 | EXTERNAL | | | | | g/dL | LAB | | + + + + + + | RDW-CV | 45.9 | 37 - 53 fl | EXTERNAL | | | | | | LAB | | + + + + + + | Platelet | 178 | 150 - 400 K/uL | EXTERNAL | | | Count | | | LAB | | | Plasma | | | | | + + + + + + | MPV | 8.2 | fl | EXTERNAL | | | | | | LAB | | + + + + + + | Differentia | AUTOMATED | | EXTERNAL | | | l Type | | | LAB | | + + + + + + | % Segmented | 66.33 | % | EXTERNAL | | | | | | LAB | | | Neutrophils | | | | | + + + + + + | % | 21.07 | % | EXTERNAL | | | Lymphocytes | | | LAB | | + + + + + + | % Monocytes | 7.56 | % | EXTERNAL | | | | | | LAB | | + + + + + + | % | 4.23 | % | EXTERNAL | | | Eosinophils | | | LAB | | + + + + + + | % Basophils | 0.81 | % | EXTERNAL | | | | | | LAB | | + + + + + + | Absolute | 3.31 | 1.90 - 7.40 | EXTERNAL | | | Segmented | | K/uL | LAB | | | Neutrophils | | | | | + + + + + + | Absolute | 1.05 | 1.00 - 3.90 | EXTERNAL | | | Lymphocytes | | K/uL | LAB | | + + + + + + | Absolute | 0.38 | 0.00 - 0.80 | EXTERNAL | | | Monocytes | | K/uL | LAB | | + + + + + + | Absolute | 0.21 | 0.00 - 0.50 | EXTERNAL | | | Eosinophils | | K/uL | LAB | | + + + + + + | Absolute | 0.04Comment: Testing | 0.00 - 0.10 | EXTERNAL | | | Basophils | performed at [facility] [place] [place];[address] | K/uL | LAB | | | | [address];[place] | | | | | | [address] | | | | + + + + + + + + | Specimen | + + | Blood specimen | | (specimen) | + + + +---------+ + + | Performing | Address | City/State/Zipcode | Phone Number | | Organization | | | | + +---------+ + + | EXTERNAL LAB | | | | + +---------+ + + Basic Metabolic Panel (12/07/2016 6:15 AM PDT) + + + + + + | Component | Value | Ref Range | Performed | Pathologist | | | | | At | Signature | + + + + + + | Na | 141 | 135 - 145 | EXTERNAL | | | | | mmol/L | LAB | | + + + + + + | K | 4.4Comment: SLT | 3.5 - 4.9 | EXTERNAL | | | | HEMOLYSIS | mmol/L | LAB | | + + + + + + | Cl | 107 | 99 - 109 mmol/L | EXTERNAL | | | | | | LAB | | + + + + + + | CO2 | 29 | 23 - 32 mmol/L | EXTERNAL | | | | | | LAB | | + + + + + + | Anion Gap | 9 | 5 - 20 mmol/L | EXTERNAL | | | | | | LAB | | + + + + + + | Glucose, | 89 | 65 - 99 mg/dL | EXTERNAL | | | Fasting | | | LAB | | + + + + + + | BUN | 11 | 8 - 25 mg/dL | EXTERNAL | | | | | | LAB | | + + + + + + | Creatinine | 0.87 | 0.70 - 1.30 | EXTERNAL | | | | | mg/dL | LAB | | + + + + + + | BUN/Creatin | 13 | | EXTERNAL | | | ine Ratio | | | LAB | | + + + + + + | Calcium | 8.3 (L) | 8.5 - 10.5 | EXTERNAL | | | | | mg/dL | LAB | | + + + + + + | Estimated | >60Comment: GFR <60: | mL/min/1.73m2 | EXTERNAL | | | GFR | CHRONIC KIDNEY DISEASE, | | LAB | | | | IF FOUND OVER A 3 MONTH | | | | | | PERIOD.GFR <15: KIDNEY | | | | | | FAILURE.FOR | | | | | | AMERICANS, MULTIPLY THE | | | | | | CALCULATED GFR BY | | | | | | 1.210.Testing performed | | | | | | at [facility] [place];[address] [place] [address] | | | | | | Bl;[place] [address] | | | | + + + + + + + + | Specimen | + + | Blood specimen | | (specimen) | + + + +---------+ + + | Performing | Address | City/State/Zipcode | Phone Number | | Organization | | | | + +---------+ + + | EXTERNAL LAB | | | | + +---------+ + + PTT (12/06/2016 5:44 AM PDT) + + + + + + | Component | Value | Ref Range | Performed | Pathologist | | | | | At | Signature | + + + + + + | aPTT, | 54 (H)Comment: Testing | 23 - 32 seconds | EXTERNAL | | | Patient | performed at [facility] [place] [place];[address] | | LAB | | | | [address];[place] | | | | | | [address] | | | | + + + + + + + + | Specimen | + + | Blood specimen | | (specimen) | + + + +---------+ + + | Performing | Address | City/State/Zipcode | Phone Number | | Organization | | | | + +---------+ + + | EXTERNAL LAB | | | | + +---------+ + + External Lab: CBC (12/06/2016 5:44 AM PDT) + + + + + + | Component | Value | Ref Range | Performed | Pathologist | | | | | At | Signature | + + + + + + | WBC | 5.39 | 3.80 - 11.00 | EXTERNAL | | | | | K/uL | LAB | | + + + + + + | Non- | 3.83 (L) | 4.20 - 5.70 | EXTERNAL | | | Red Blood | | M/uL | LAB | | | Cells | | | | | | Counted | | | | | + + + + + + | Hemoglobin | 11.6 (L) | 13.2 - 17.0 | EXTERNAL | | | | | g/dL | LAB | | + + + + + + | Hematocrit, | 34.9 (L) | 39.0 - 50.0 % | EXTERNAL | | | POC | | | LAB | | + + + + + + | MCV | 91.1 | 80.0 - 100.0 fl | EXTERNAL | | | | | | LAB | | + + + + + + | MCH | 30.3 | 27.0 - 34.0 pg | EXTERNAL | | | | | | LAB | | + + + + + + | MCHC | 33.2 | 32.0 - 35.5 | EXTERNAL | | | | | g/dL | LAB | | + + + + + + | RDW-CV | 45.1 | 37 - 53 fl | EXTERNAL | | | | | | LAB | | + + + + + + | Platelet | 214 | 150 - 400 K/uL | EXTERNAL | | | Count | | | LAB | | | Plasma | | | | | + + + + + + | MPV | 7.9 | fl | EXTERNAL | | | | | | LAB | | + + + + + + | Differentia | AUTOMATED | | EXTERNAL | | | l Type | | | LAB | | + + + + + + | % Segmented | 66.91 | % | EXTERNAL | | | | | | LAB | | | Neutrophils | | | | | + + + + + + | % | 21.22 | % | EXTERNAL | | | Lymphocytes | | | LAB | | + + + + + + | % Monocytes | 7.49 | % | EXTERNAL | | | | | | LAB | | + + + + + + | % | 3.94 | % | EXTERNAL | | | Eosinophils | | | LAB | | + + + + + + | % Basophils | 0.44 | % | EXTERNAL | | | | | | LAB | | + + + + + + | Absolute | 3.61 | 1.90 - 7.40 | EXTERNAL | | | Segmented | | K/uL | LAB | | | Neutrophils | | | | | + + + + + + | Absolute | 1.14 | 1.00 - 3.90 | EXTERNAL | | | Lymphocytes | | K/uL | LAB | | + + + + + + | Absolute | 0.40 | 0.00 - 0.80 | EXTERNAL | | | Monocytes | | K/uL | LAB | | + + + + + + | Absolute | 0.21 | 0.00 - 0.50 | EXTERNAL | | | Eosinophils | | K/uL | LAB | | + + + + + + | Absolute | 0.02Comment: Testing | 0.00 - 0.10 | EXTERNAL | | | Basophils | performed at [facility], [address] | [address] | LAB | | | | [address], | | | | | | [place] [address] | | | | + + + + + + + + | Specimen | + + | Blood specimen | | (specimen) | + + + +---------+ + + | Performing | Address | City/State/Zipcode | Phone Number | | Organization | | | | + +---------+ + + | EXTERNAL LAB | | | | + +---------+ + + Magnesium (12/06/2016 5:44 AM PDT) + + + + + + | Component | Value | Ref Range | Performed | Pathologist | | | | | At | Signature | + + + + + + | Magnesium | 2.4Comment: Testing | 1.7 - 2.4 mg/dL | EXTERNAL | | | | performed at [facility], [address] | | LAB | | | | [address], | | | | | | [place] [address] | | | | + + + + + + + + | Specimen | + + | Blood specimen | | (specimen) | + + + +---------+ + + | Performing | Address | City/State/Zipcode | Phone Number | | Organization | | | | + +---------+ + + | EXTERNAL LAB | | | | + +---------+ + + Basic Metabolic Panel (12/06/2016 5:44 AM PDT) + + + + + + | Component | Value | Ref Range | Performed | Pathologist | | | | | At | Signature | + + + + + + | Na | 143 | 135 - 145 | EXTERNAL | | | | | mmol/L | LAB | | + + + + + + | K | 4.2 | 3.5 - 4.9 | EXTERNAL | | | | | mmol/L | LAB | | + + + + + + | Cl | 107 | 99 - 109 mmol/L | EXTERNAL | | | | | | LAB | | + + + + + + | CO2 | 29 | 23 - 32 mmol/L | EXTERNAL | | | | | | LAB | | + + + + + + | Anion Gap | 11 | 5 - 20 mmol/L | EXTERNAL | | | | | | LAB | | + + + + + + | Glucose, | 103 (H) | 65 - 99 mg/dL | EXTERNAL | | | Fasting | | | LAB | | + + + + + + | BUN | 14 | 8 - 25 mg/dL | EXTERNAL | | | | | | LAB | | + + + + + + | Creatinine | 1.0 | 0.70 - 1.30 | EXTERNAL | | | | | mg/dL | LAB | | + + + + + + | BUN/Creatin | 14 | | EXTERNAL | | | ine Ratio | | | LAB | | + + + + + + | Calcium | 8.9 | 8.5 - 10.5 | EXTERNAL | | | | | mg/dL | LAB | | + + + + + + | Estimated | >60Comment: GFR <60: | mL/min/1.73m2 | EXTERNAL | | | GFR | CHRONIC KIDNEY DISEASE, | | LAB | | | | IF FOUND OVER A 3 MONTH | | | | | | PERIOD.GFR <15: KIDNEY | | | | | | FAILURE.FOR | | | | | | AMERICANS, MULTIPLY THE | | | | | | CALCULATED GFR BY | | | | | | 1.210.Testing performed | | | | | | at [facility], [address] | | | | | | [address], | | | | | | [place] [address] | | | | + + + + + + + + | Specimen | + + | Blood specimen | | (specimen) | + + + +---------+ + + | Performing | Address | City/State/Zipcode | Phone Number | | Organization | | | | + +---------+ + + | EXTERNAL LAB | | | | + +---------+ + + PTT (12/05/2016 8:06 AM PDT) + + + + + + | Component | Value | Ref Range | Performed | Pathologist | | | | | At | Signature | + + + + + + | aPTT, | 63 (H)Comment: Testing | 23 - 32 seconds | EXTERNAL | | | Patient | performed at [facility] [place] [place];[address] | | LAB | | | | [address];[place] | | | | | | [address] | | | | + + + + + + + + | Specimen | + + | Blood specimen | | (specimen) | + + + +---------+ + + | Performing | Address | City/State/Zipcode | Phone Number | | Organization | | | | + +---------+ + + | EXTERNAL LAB | | | | + +---------+ + + PTT (12/05/2016 2:09 AM PDT) + + + + + + | Component | Value | Ref Range | Performed | Pathologist | | | | | At | Signature | + + + + + + | aPTT, | 54 (H)Comment: Testing | 23 - 32 seconds | EXTERNAL | | | Patient | performed at [facility] [place] [place];[address] | | LAB | | | | [address];[place], [place] | | | | | | [address] | | | | + + + + + + + + | Specimen | + + | Blood specimen | | (specimen) | + + + +---------+ + + | Performing | Address | City/State/Zipcode | Phone Number | | Organization | | | | + +---------+ + + | EXTERNAL LAB | | | | + +---------+ + + External Lab: CBC (12/05/2016 2:09 AM PDT) + + + + + + | Component | Value | Ref Range | Performed | Pathologist | | | | | At | Signature | + + + + + + | WBC | 7.21 | 3.80 - 11.00 | EXTERNAL | | | | | K/uL | LAB | | + + + + + + | Non- | 3.97 (L) | 4.20 - 5.70 | EXTERNAL | | | Red Blood | | M/uL | LAB | | | Cells | | | | | | Counted | | | | | + + + + + + | Hemoglobin | 11.9 (L) | 13.2 - 17.0 | EXTERNAL | | | | | g/dL | LAB | | + + + + + + | Hematocrit, | 36.1 (L) | 39.0 - 50.0 % | EXTERNAL | | | POC | | | LAB | | + + + + + + | MCV | 90.9 | 80.0 - 100.0 fl | EXTERNAL | | | | | | LAB | | + + + + + + | MCH | 30.0 | 27.0 - 34.0 pg | EXTERNAL | | | | | | LAB | | + + + + + + | MCHC | 33.0 | 32.0 - 35.5 | EXTERNAL | | | | | g/dL | LAB | | + + + + + + | RDW-CV | 44.6 | 37 - 53 fl | EXTERNAL | | | | | | LAB | | + + + + + + | Platelet | 256 | 150 - 400 K/uL | EXTERNAL | | | Count | | | LAB | | | Plasma | | | | | + + + + + + | MPV | 8.1 | fl | EXTERNAL | | | | | | LAB | | + + + + + + | Differentia | AUTOMATED | | EXTERNAL | | | l Type | | | LAB | | + + + + + + | % Segmented | 69.90 | % | EXTERNAL | | | | | | LAB | | | Neutrophils | | | | | + + + + + + | % | 18.78 | % | EXTERNAL | | | Lymphocytes | | | LAB | | + + + + + + | % Monocytes | 8.87 | % | EXTERNAL | | | | | | LAB | | + + + + + + | % | 1.89 | % | EXTERNAL | | | Eosinophils | | | LAB | | + + + + + + | % Basophils | 0.56 | % | EXTERNAL | | | | | | LAB | | + + + + + + | Absolute | 5.04 | 1.90 - 7.40 | EXTERNAL | | | Segmented | | K/uL | LAB | | | Neutrophils | | | | | + + + + + + | Absolute | 1.35 | 1.00 - 3.90 | EXTERNAL | | | Lymphocytes | | K/uL | LAB | | + + + + + + | Absolute | 0.64 | 0.00 - 0.80 | EXTERNAL | | | Monocytes | | K/uL | LAB | | + + + + + + | Absolute | 0.14 | 0.00 - 0.50 | EXTERNAL | | | Eosinophils | | K/uL | LAB | | + + + + + + | Absolute | 0.04Comment: Testing | 0.00 - 0.10 | EXTERNAL | | | Basophils | performed at [facility], [address] | [address] | LAB | | | | [address], | | | | | | [place] [address] | | | | + + + + + + + + | Specimen | + + | Blood specimen | | (specimen) | + + + +---------+ + + | Performing | Address | City/State/Zipcode | Phone Number | | Organization | | | | + +---------+ + + | EXTERNAL LAB | | | | + +---------+ + + Magnesium (12/05/2016 2:09 AM PDT) + + + + + + | Component | Value | Ref Range | Performed | Pathologist | | | | | At | Signature | + + + + + + | Magnesium | 2.3Comment: Testing | 1.7 - 2.4 mg/dL | EXTERNAL | | | | performed at [facility], [address] | | LAB | | | | [facility], | | | | | | [place] [address] | | | | + + + + + + + + | Specimen | + + | Blood specimen | | (specimen) | + + + +---------+ + + | Performing | Address | City/State/Zipcode | Phone Number | | Organization | | | | + +---------+ + + | EXTERNAL LAB | | | | + +---------+ + + Comprehensive Metabolic Panel (12/05/2016 2:09 AM PDT) + + + + + + | Component | Value | Ref Range | Performed | Pathologist | | | | | At | Signature | + + + + + + | Na | 139 | 135 - 145 | EXTERNAL | | | | | mmol/L | LAB | | + + + + + + | K | 4.0 | 3.5 - 4.9 | EXTERNAL | | | | | mmol/L | LAB | | + + + + + + | Cl | 106 | 99 - 109 mmol/L | EXTERNAL | | | | | | LAB | | + + + + + + | CO2 | 27 | 23 - 32 mmol/L | EXTERNAL | | | | | | LAB | | + + + + + + | Anion Gap | 10 | 5 - 20 mmol/L | EXTERNAL | | | | | | LAB | | + + + + + + | Glucose, | 117 (H) | 65 - 99 mg/dL | EXTERNAL | | | Fasting | | | LAB | | + + + + + + | BUN | 16 | 8 - 25 mg/dL | EXTERNAL | | | | | | LAB | | + + + + + + | Creatinine | 1.0 | 0.70 - 1.30 | EXTERNAL | | | | | mg/dL | LAB | | + + + + + + | BUN/Creatin | 16 | | EXTERNAL | | | ine Ratio | | | LAB | | + + + + + + | Calcium | 8.4 (L) | 8.5 - 10.5 | EXTERNAL | | | | | mg/dL | LAB | | + + + + + + | Protein, | 6.4 | 6.3 - 8.2 g/dL | EXTERNAL | | | Total | | | LAB | | + + + + + + | Albumin | 3.3 | 3.3 - 4.8 g/dL | EXTERNAL | | | | | | LAB | | + + + + + + | Globulin | 3.1 | 1.3 - 4.9 g/dL | EXTERNAL | | | | | | LAB | | + + + + + + | A/G Ratio | 1.1 | 1.0 - 2.4 | EXTERNAL | | | | | | LAB | | + + + + + + | Bilirubin | 0.6 | 0.1 - 1.5 mg/dL | EXTERNAL | | | Total | | | LAB | | + + + + + + | ALP, | 80 | 35 - 115 U/L | EXTERNAL | | | External | | | LAB | | + + + + + + | AST | 18 | 10 - 45 U/L | EXTERNAL | | | | | | LAB | | + + + + + + | ALT | 51 | 10 - 65 U/L | EXTERNAL | | | | | | LAB | | + + + + + + | Estimated | >60Comment: GFR <60: | mL/min/1.73m2 | EXTERNAL | | | GFR | CHRONIC KIDNEY DISEASE, | | LAB | | | | IF FOUND OVER A 3 MONTH | | | | | | PERIOD.GFR <15: KIDNEY | | | | | | FAILURE.FOR | | | | | | AMERICANS, MULTIPLY THE | | | | | | CALCULATED GFR BY | | | | | | 1.210.Testing performed | | | | | | at [facility], [address] | | | | | | [address], | | | | | | [place] [address] | | | | + + + + + + + + | Specimen | + + | Blood specimen | | (specimen) | + + + +---------+ + + | Performing | Address | City/State/Zipcode | Phone Number | | Organization | | | | + +---------+ + + | EXTERNAL LAB | | | | + +---------+ + + PTT (12/04/2016 7:42 PM PDT) + + + + + + | Component | Value | Ref Range | Performed | Pathologist | | | | | At | Signature | + + + + + + | aPTT, | 40 (H)Comment: Testing | 23 - 32 seconds | EXTERNAL | | | Patient | performed at [facility] [place] [place];[address] | | LAB | | | | [address];[place] | | | | | | [address] | | | | + + + + + + + + | Specimen | + + | Blood specimen | | (specimen) | + + + +---------+ + + | Performing | Address | City/State/Zipcode | Phone Number | | Organization | | | | + +---------+ + + | EXTERNAL LAB | | | | + +---------+ + + PTT (12/04/2016 1:01 PM PDT) + + + + + + | Component | Value | Ref Range | Performed | Pathologist | | | | | At | Signature | + + + + + + | aPTT, | 48 (H)Comment: Testing | 23 - 32 seconds | EXTERNAL | | | Patient | performed at [facility] [place] [place];[address] | | LAB | | | | [address];[place], [place] | | | | | | [address] | | | | + + + + + + + + | Specimen | + + | Blood specimen | | (specimen) | + + + +---------+ + + | Performing | Address | City/State/Zipcode | Phone Number | | Organization | | | | + +---------+ + + | EXTERNAL LAB | | | | + +---------+ + + ECHO Complete (12/04/2016 12:00 PM PDT) + + | Specimen | + + | | + + + + + | Impressions | Performed At | + + + | 1. The right ventricle is severely enlarged. 2. There is severe | | | pulmonary hypertension. | | + + + + + + | Narrative | Performed At | + + + | Patient Name: PATRICE LION Date of : 1955 | | | Performing Physician: Martínez Hyman | | | MD | | | ------REPORT ADDENDED------ INDICATIONS MULTIPLE | | | BILATERAL PE, EVAL RIGHT HEART CONCLUSIONS 1. The | | | right ventricle is severely enlarged. 2. There is severe pulmonary | | | hypertension. FINDINGS -------- ECG rhythm: Atrial fibrillation | | | with a heartrate of 73BPM Study: A 2-dimensional transthoracic | | | echocardiogram with m-mode, spectral and color flow Doppler was | | | perfomed. Study: This was a technically adequate study. Left | | | Ventricle: Overall left ventricular systolic function is normal with, | | | an EF between 60 - 65 %. Left Ventricle: The left ventricle cavity | | | size is normal. Left Ventricle: There is mild concentric left | | | ventricular hypertrophy. Right Ventricle: The right ventricle is | | | severely enlarged. Left Atrium: The left atrium is mildly dilated. | | | Right Atrium: The right atrium is mildly enlarged. Aortic Valve: The | | | aortic valve is trileaflet, and appears anatomically normal. No aortic | | | stenosis or regurgitation. Mitral Valve: The mitral valve is normal. | | | Mitral Valve: There is trace mitral regurgitation. Tricuspid Valve: | | | The tricuspid valve appears structurally normal. Tricuspid Valve: | | | Moderate tricuspid regurgitation present. Tricuspid Valve: There is | | | severe pulmonary hypertension. Tricuspid Valve: The right ventricular | | | systolic pressure (pulmonary artery systolic pressure), as measured | | | by Doppler, is 78.47mmHg. Pulmonic Valve: Pulmonic valve appears | | | structurally normal. Pulmonic Valve: Trace pulmonic regurgitation. | | | Pericardium: There is no pericardial effusion. IVC/Hepatic Veins: | | | The IVC was not well visualized. Thrombus: No clot visualized | | | MEASUREMENTS RA Area: 19.32 cm2 Ao asc: 3.51 cm | | | Ao sinus: 3.[address] junct: 3.31 cm LA Diam: 4.20 cm | | | LA Major: 5.51 cm EDV(Teich): 87.58 ml IVSd: 1.33 cm | | | LVIDd: 4.39 cm LVPWd: 1.11 cm LVOT Diam: 2.21 cm %FS: | | | 31.51 % EF(Teich): 59.65 % ESV(Teich): 35.33 ml IVSs: 1.50 | | | cm LVIDs: 3.01 cm LVPWs: 1.56 cm SV(Teich): 52.25 ml RA | | | Major: 5.26 cm RVIDd: 4.34 cm LAESV(A-L): 49.77 ml LAESV | | | Index (A-L): 22.02 ml/m2 LAAs A2C: 16.86 cm2 LAESV A-L A2C: | | | 44.55 ml LAESV MOD A2C: 43.40 ml LALs A2C: 5.41 cm LAAs A4C: | | | 16.90 cm2 LAESV A-L A4C: 49.87 ml LAESV MOD A4C: 42.28 ml | | | LALs A4C: 4.86 cm Ao Diam: 3.99 cm AV Cusp: 2.43 cm LA | | | Diam: 4.73 cm LA/Ao: 1.18 TAPSE: 2.01 cm HR: 72.55 BPM | | | AV maxP.33 mmHg AV meanP.87 mmHg AV Vmax: 1.25 m/s | | | AV Vmean: 0.79 m/s AV VTI: 22.25 cm TAMI Vmax: 3.05 cm2 | | | TAMI (VTI): 3.19 cm2 AVAI Vmax: 0.00 cm2/m2 AVAI (VTI): 0.00 | | | cm2/m2 LVCI Dopp: 2.20 l/minm2 LVCO Dopp: 4.99 l/min HR: | | | 70.20 BPM LVOT maxP.96 mmHg LVOT meanP.59 mmHg LVSI | | | Dopp: 31.47 ml/m2 LVSV Dopp: 71.13 ml LVOT Vmax: 0.99 m/s | | | LVOT Vmean: 0.77 m/s LVOT VTI: 18.44 cm MCO: 373.70 ms MV | | | A Vamsi: 0.61 m/s MV DecT: 128.20 ms MV E Vamsi: 0.51 m/s MV | | | E/A Ratio: 0.82 MV PHT: 44.57 ms MVA By PHT: 4.93 cm2 MV A | | | Dur: 173.01 ms Septal e': 0.04 m/s Septal E/e': 11.81 | | | Lateral e': 0.11 m/s Lateral E/e': 4.64 P Vein A: 0.24 m/s | | | P Vein A Dur: 128.02 ms P Vein D: 0.36 m/s P Vein S/D Ratio: | | | 1.26 P Vein S: 0.45 m/s HR: 68 BPM PV maxP.64 mmHg | | | PV meanP.83 mmHg PV Vmax: 0.64 m/s PV Vmean: 0.44 m/s | | | PV VTI: 15.22 cm RAP: 10 mmHg RV S': 0.14 m/s RVSP: | | | 78.47 mmHg TR maxP.47 mmHg TR Vmax: 4.13 m/s TV A Vamsi: | | | 0.45 m/s TV Dec Clarke: 9.74 m/s2 TV Dec Time: 81.96 ms TV | | | E Vamsi: 0.79 m/s TV E/A Ratio: 1.76 Ocular Pathologist: KVW | | | Authenticated by: Martínez Hyman MD Report Date/Time: 12-04-2016 | | | 13:19:4 | | + + + + + | Procedure Note | + + | Francois Singh Conversion - 10/02/2018 9:34 PM PDT Patient Name: Ely LION | | : 1955 Performing Physician: Martínez Hyman | | ------REPORT | | ADDENDED------INDICATIONS MULTIPLE BILATERAL PE, EVAL RIGHT HEART | | CONCLUSIONS 1. The right ventricle is severely enlarged.2. There is severe | | pulmonary hypertension. FINDINGS--------ECG rhythm: Atrial fibrillation with a heartrate | | of 73BPMStudy: A 2-dimensional transthoracic echocardiogram with m-mode, spectral and | | color flow Doppler was perfomed.Study: This was a technically adequate study.Left | | Ventricle: Overall left ventricular systolic function is normal with, an EF between 60 - | | 65 %.Left Ventricle: The left ventricle cavity size is normal.Left Ventricle: There is | | mild concentric left ventricular hypertrophy.Right Ventricle: The right ventricle is | | severely enlarged.Left Atrium: The left atrium is mildly dilated.Right Atrium: The right | | atrium is mildly enlarged.Aortic Valve: The aortic valve is trileaflet, and appears | | anatomically normal. No aortic stenosis or regurgitation.Mitral Valve: The mitral valve | | is normal.Mitral Valve: There is trace mitral regurgitation.Tricuspid Valve: The | | tricuspid valve appears structurally normal.Tricuspid Valve: Moderate tricuspid | | regurgitation present.Tricuspid Valve: There is severe pulmonary hypertension.Tricuspid | | Valve: The right ventricular systolic pressure (pulmonary artery systolic pressure), as | | measured by Doppler, is 78.47mmHg.Pulmonic Valve: Pulmonic valve appears structurally | | normal.Pulmonic Valve: Trace pulmonic regurgitation.Pericardium: There is no | | pericardial effusion.IVC/Hepatic Veins: The IVC was not well visualized.Thrombus: No | | clot visualized MEASUREMENTS RA Area: 19.32 cm2Ao asc: 3.51 cmAo sinus: | | 3.[address] junct: 3.31 cmLA Diam: 4.20 cmLA Major: 5.51 cmEDV(Teich): 87.58 | | mlIVSd: 1.33 cmLVIDd: 4.39 cmLVPWd: 1.11 cmLVOT Diam: 2.21 cm%FS: 31.51 | | %EF(Teich): 59.65 %ESV(Teich): 35.33 mlIVSs: 1.50 cmLVIDs: 3.01 cmLVPWs: 1.56 | | cmSV(Teich): 52.25 mlRA Major: 5.26 cmRVIDd: 4.34 cmLAESV(A-L): 49.77 mlLAESV | | Index (A-L): 22.02 ml/m2LAAs A2C: 16.86 [id number] A-L A2C: 44.55 mlLAESV MOD A2C: | | 43.40 mlLALs A2C: 5.41 cmLAAs A4C: 16.90 [id number] A-L A4C: 49.87 mlLAESV MOD A4C: | | 42.28 mlLALs A4C: 4.86 cmAo Diam: 3.99 cmAV Cusp: 2.43 cmLA Diam: 4.73 | | cmLA/Ao: 1.18TAPSE: 2.01 cmHR: 72.55 BPMAV maxP.33 mmHgAV meanP.87 | | mmHgAV Vmax: 1.25 m/Lela Vmean: 0.79 m/Lela VTI: 22.25 cmAVA Vmax: 3.05 cm2AVA | | (VTI): 3.19 [id number] Vmax: 0.00 cm2/m2AVAI (VTI): 0.00 cm2/m2LVCI Dopp: 2.20 | | l/ibnc2ICQA Dopp: 4.99 l/minHR: 70.20 BPMLVOT maxP.96 mmHgLVOT meanP.59 | | mmHgLVSI Dopp: 31.47 ml/m2LVSV Dopp: 71.13 mlLVOT Vmax: 0.99 m/sLVOT Vmean: 0.77 | | m/sLVOT VTI: 18.44 cmMCO: 373.70 msMV A Vamsi: 0.61 m/sMV DecT: 128.20 msMV E | | Vamsi: 0.51 m/sMV E/A Ratio: 0.82MV PHT: 44.57 msMVA By PHT: 4.93 cm2MV A Dur: | | 173.01 msSeptal e': 0.04 m/sSeptal E/e': 11.81Lateral e': 0.11 m/sLateral E/e': | | 4.64P Vein A: 0.24 m/sP Vein A Dur: 128.02 msP Vein D: 0.36 m/sP Vein S/D Ratio: | | 1.26P Vein S: 0.45 m/sHR: 68 BPMPV maxP.64 mmHgPV meanP.83 mmHgPV Vmax: | | 0.64 m/sPV Vmean: 0.44 m/sPV VTI: 15.22 cmRAP: 10 mmHgRV S': 0.14 m/sRVSP: | | 78.47 mmHgTR maxP.47 mmHgTR Vmax: 4.13 m/sTV A Vamsi: 0.45 m/sTV Dec Clarke: | | 9.74 m/s2TV Dec Time: 81.96 msTV E Vamsi: 0.79 m/sTV E/A Ratio: 1.76 Ocular Pathologist: | | KVWAuthenticated by: Martínez QUESADA[facility] Date/Time: 12-04-2016 13:19:4 | | IMPRESSION: 1. The right ventricle is severely enlarged.2. There is severe pulmonary | | hypertension. | |RA Area: 19.32 cm2 | |Ao asc: 3.51 cm | |Ao sinus: 3.62 cm | |Ao st junct: 3.31 cm | |LA Diam: 4.20 cm | |LA Major: 5.51 cm | |EDV(Teich): 87.58 ml | |IVSd: 1.33 cm | |LVIDd: 4.39 cm | |LVPWd: 1.11 cm | |LVOT Diam: 2.21 cm | |%FS: 31.51 % | |EF(Teich): 59.65 % | |ESV(Teich): 35.33 ml | |IVSs: 1.50 cm | |LVIDs: 3.01 cm | |LVPWs: 1.56 cm | |SV(Teich): 52.25 ml | |RA Major: 5.26 cm | |RVIDd: 4.34 cm | |LAESV(A-L): 49.77 ml | |LAESV Index (A-L): 22.02 ml/m2 | |LAAs A2C: 16.86 cm2 | |LAESV A-L A2C: 44.55 ml | |LAESV MOD A2C: 43.40 ml | |LALs A2C: 5.41 cm | |LAAs A4C: 16.90 cm2 | |LAESV A-L A4C: 49.87 ml | |LAESV MOD A4C: 42.28 ml | |LALs A4C: 4.86 cm | |Ao Diam: 3.99 cm | |AV Cusp: 2.43 cm | |LA Diam: 4.73 cm | |LA/Ao: 1.18 | |TAPSE: 2.01 cm | |HR: 72.55 BPM | |AV maxP.33 mmHg | |AV meanP.87 mmHg | |AV Vmax: 1.25 m/s | |AV Vmean: 0.79 m/s | |AV VTI: 22.25 cm | |TAMI Vmax: 3.05 cm2 | |TAMI (VTI): 3.19 cm2 | |AVAI Vmax: 0.00 cm2/m2 | |AVAI (VTI): 0.00 cm2/m2 | |LVCI Dopp: 2.20 l/minm2 | |LVCO Dopp: 4.99 l/min | |HR: 70.20 BPM | |LVOT maxP.96 mmHg | |LVOT meanP.59 mmHg | |LVSI Dopp: 31.47 ml/m2 | |LVSV Dopp: 71.13 ml | |LVOT Vmax: 0.99 m/s | |LVOT Vmean: 0.77 m/s | |LVOT VTI: 18.44 cm | |MCO: 373.70 ms | |MV A Vamsi: 0.61 m/s | |MV DecT: 128.20 ms | |MV E Vamsi: 0.51 m/s | |MV E/A Ratio: 0.82 | |MV PHT: 44.57 ms | |MVA By PHT: 4.93 cm2 | |MV A Dur: 173.01 ms | |Septal e': 0.04 m/s | |Septal E/e': 11.81 | |Lateral e': 0.11 m/s | |Lateral E/e': 4.64 | |P Vein A: 0.24 m/s | |P Vein A Dur: 128.02 ms | |P Vein D: 0.36 m/s | |P Vein S/D Ratio: 1.26 | |P Vein S: 0.45 m/s | |HR: 68 BPM | |PV maxP.64 mmHg | |PV meanP.83 mmHg | |PV Vmax: 0.64 m/s | |PV Vmean: 0.44 m/s | |PV VTI: 15.22 cm | |RAP: 10 mmHg | |RV S': 0.14 m/s | |RVSP: 78.47 mmHg | |TR maxP.47 mmHg | |TR Vmax: 4.13 m/s | |TV A Vamsi: 0.45 m/s | |TV Dec Clarke: 9.74 m/s2 | |TV Dec Time: 81.96 ms | |TV E Vamsi: 0.79 m/s | |TV E/A Ratio: 1.76 | | | |Ocular Pathologist: OANHW | |Authenticated by: Martínez Hyman MD | |Report Date/Time: 12-04-2016 13:19:4 | | | |IMPRESSION: | |1. The right ventricle is severely enlarged. | |2. There is severe pulmonary hypertension. | + + PTT (12/04/2016 10:59 AM PDT) + + + + + + | Component | Value | Ref Range | Performed | Pathologist | | | | | At | Signature | + + + + + + | aPTT, | 46 (H)Comment: Testing | 23 - 32 seconds | EXTERNAL | | | Patient | performed at [facility] – [place];[address] | | LAB | | | | [address];[place] | | | | | | [id number] | | | | + + + + + + + + | Specimen | + + | Blood specimen | | (specimen) | + + + +---------+ + + | Performing | Address | City/State/Zipcode | Phone Number | | Organization | | | | + +---------+ + + | EXTERNAL LAB | | | | + +---------+ + + VAS Lower Extremity Venous Bilateral (12/04/2016 5:38 AM PDT) + + | Specimen | + + | | + + + + + | Impressions | Performed At | + + + | 1. Nonocclusive thrombus in the left popliteal vein. [facility] | | | Electronically signed by Mart Dominguez MD on Dec 04 2016 6:00AM | | | Referring Provider Line: [phone] ID: [id number] | | + + + + + + | Narrative | Performed At | + + + | EXAM: BILATERAL LOWER EXTREMITY VENOUS ULTRASOUND EXAM DATE: | | | 12/04/2016 05:39 AM. CLINICAL HISTORY: Bilateral pulmonary emboli. | | | COMPARISON: None. TECHNIQUE: Real-time sonographic vascular | | | imaging was performed by the drawing tracer through the lower extremities | | | utilizing both color-flow and Doppler spectral analysis. Multiple | | | software support representative static images were saved for review. FINDINGS: | | | Right: Common Femoral Vein (CFV): Normal. CFV-GSV Junction: Normal. | | | Profunda Femoral Vein (PFV): Normal. Femoral Vein (FV) Prox: Normal. | | | Femoral Vein (FV) Mid: Normal. Femoral Vein (FV) Dist: Normal. | | | Popliteal Vein: Normal. Posterior Tibial Veins: Normal. Peroneal | | | Veins: Normal. Left: Common Femoral Vein (CFV): Normal. CFV-GSV | | | Junction: Normal. Profunda Femoral Vein (PFV): Normal. Femoral Vein | | | (FV) Prox: Normal. Femoral Vein (FV) Mid: Normal. Femoral Vein (FV) | | | Dist: Normal. Popliteal Vein: Nonocclusive thrombus. Posterior | | | Tibial Veins: Normal. Peroneal Veins: Normal. Other: None. | | + + + + + | Procedure Note | + + | Francisco, Rad Conversion - 10/02/2018 9:34 PM PDT EXAM:BILATERAL LOWER EXTREMITY VENOUS | | ULTRASOUND EXAM DATE: 12/04/2016 05:39 AM. CLINICAL HISTORY: Bilateral pulmonary emboli. | | COMPARISON: None. TECHNIQUE: Real-time sonographic vascular imaging was performed by | | the drawing tracer through the lower extremities utilizing both color-flow and Doppler | | spectral analysis. Multiple software support representative static images were saved for review. | | FINDINGS:Right:Common Femoral Vein (CFV): Normal.CFV-GSV Junction: Normal.Profunda | | Femoral Vein (PFV): Normal.Femoral Vein (FV) Prox: Normal.Femoral Vein (FV) Mid: | | Normal.Femoral Vein (FV) Dist: Normal.Popliteal Vein: Normal.Posterior Tibial Veins: | | Normal.Peroneal Veins: Normal. Left:Common Femoral Vein (CFV): Normal.CFV-GSV Junction: | | Normal.Profunda Femoral Vein (PFV): Normal.Femoral Vein (FV) Prox: Normal.Femoral Vein | | (FV) Mid: Normal.Femoral Vein (FV) Dist: Normal.Popliteal Vein: Nonocclusive | | thrombus.Posterior Tibial Veins: Normal.Peroneal Veins: Normal. Other: None. IMPRESSION: | | 1. Nonocclusive thrombus in the left popliteal vein. [facility] Electronically signed by | | Mart Dominguez MD on Dec 04 2016 6:00AM Referring Provider Line: [phone] ID: [id number] | |CFV-GSV Junction: Normal. | |Profunda Femoral Vein (PFV): Normal. | |Femoral Vein (FV) Prox: Normal. | |Femoral Vein (FV) Mid: Normal. | |Femoral Vein (FV) Dist: Normal. | |Popliteal Vein: Normal. | |Posterior Tibial Veins: Normal. | |Peroneal Veins: Normal. | | | |Left: | |Common Femoral Vein (CFV): Normal. | |CFV-GSV Junction: Normal. | |Profunda Femoral Vein (PFV): Normal. | |Femoral Vein (FV) Prox: Normal. | |Femoral Vein (FV) Mid: Normal. | |Femoral Vein (FV) Dist: Normal. | |Popliteal Vein: Nonocclusive thrombus. | |Posterior Tibial Veins: Normal. | |Peroneal Veins: Normal. | | | |Other: None. | | | |IMPRESSION: | | | |1. Nonocclusive thrombus in the left popliteal vein. | | | |[facility] | | | | Electronically signed by Mart Dominguez MD on Dec 04 2016 6:00AM Referring Provider Line: [phone] ID: [id number] | + + CK-MB (12/04/2016 5:22 AM PDT) + + + + + -+ | Component | Value | Ref Range | Performed | Pathologist | | | | | At | Signature | + + + + + -+ | CK-MB | 3.7 (H) | 0.5 - 3.6 ng/mL | EXTERNAL | | | | | | LAB | | + + + + + -+ | CK-MB Index | 6.6Comment: CK INDEX | | EXTERNAL | | | | INTERPRETATION: | | LAB | | | | MMB ng/mL | | | | | | | | | | | |CK INDEX INTERPRETATION: | | | | | | MMB ng/mL | | | | | | | | | | + + + + + -+ + + | Specimen | + + | | + + + +---------+ + + | Performing | Address | City/State/Zipcode | Phone Number | | Organization | | | | + +---------+ + + | EXTERNAL LAB | | | | + +---------+ + + Troponin I (12/04/2016 5:22 AM PDT) + + + + + + | Component | Value | Ref Range | Performed | Pathologist | | | | | At | Signature | + + + + + + | Troponin I, | 0.061Comment: 0.00 to | 0.00 - 0.10 | EXTERNAL | | | Qual | 0.10 CONSISTENT WITH | ng/mL | LAB | | | | NORMAL POPULATION0.11 to | | | | | | 0.60 CONSISTENT WITH | | | | | | INCREASED RISK FOR | | | | | | ADVERSE OUTCOMES> 0.60 | | | | | | CONSISTENT | | | | | | WITH WHO CRITERIA FOR | | | | | | ACUTE TX Testing | | | | | | performed at [facility] – [place], [place];[address] | | | | | | [facility];[place], [place] | | | | | | [address] | | | | + + + + + + + + | Specimen | + + | Blood specimen | | (specimen) | + + + +---------+ + + | Performing | Address | City/State/Zipcode | Phone Number | | Organization | | | | + +---------+ + + | EXTERNAL LAB | | | | + +---------+ + + PTT (12/04/2016 5:22 AM PDT) + + + + + + | Component | Value | Ref Range | Performed | Pathologist | | | | | At | Signature | + + + + + + | aPTT, | 29Comment: Testing | 23 - 32 seconds | EXTERNAL | | | Patient | performed at [facility] – [place], [place];[address] | | LAB | | | | [address];[place], [place] | | | | | | [address] | | | | + + + + + + + + | Specimen | + + | Blood specimen | | (specimen) | + + + +---------+ + + | Performing | Address | City/State/Zipcode | Phone Number | | Organization | | | | + +---------+ + + | EXTERNAL LAB | | | | + +---------+ + + External Lab: CBC (12/04/2016 5:22 AM PDT) + + + + + + | Component | Value | Ref Range | Performed | Pathologist | | | | | At | Signature | + + + + + + | WBC | 7.18 | 3.80 - 11.00 | EXTERNAL | | | | | K/uL | LAB | | + + + + + + | Non- | 4.15 (L) | 4.20 - 5.70 | EXTERNAL | | | Red Blood | | M/uL | LAB | | | Cells | | | | | | Counted | | | | | + + + + + + | Hemoglobin | 12.5 (L) | 13.2 - 17.0 | EXTERNAL | | | | | g/dL | LAB | | + + + + + + | Hematocrit, | 37.5 (L) | 39.0 - 50.0 % | EXTERNAL | | | POC | | | LAB | | + + + + + + | MCV | 90.5 | 80.0 - 100.0 fl | EXTERNAL | | | | | | LAB | | + + + + + + | MCH | 30.1 | 27.0 - 34.0 pg | EXTERNAL | | | | | | LAB | | + + + + + + | MCHC | 33.3 | 32.0 - 35.5 | EXTERNAL | | | | | g/dL | LAB | | + + + + + + | RDW-CV | 45.1 | 37 - 53 fl | EXTERNAL | | | | | | LAB | | + + + + + + | Platelet | 257 | 150 - 400 K/uL | EXTERNAL | | | Count | | | LAB | | | Plasma | | | | | + + + + + + | MPV | 7.9 | fl | EXTERNAL | | | | | | LAB | | + + + + + + | Differentia | AUTOMATED | | EXTERNAL | | | l Type | | | LAB | | + + + + + + | % Segmented | 72.91 | % | EXTERNAL | | | | | | LAB | | | Neutrophils | | | | | + + + + + + | % | 16.58 | % | EXTERNAL | | | Lymphocytes | | | LAB | | + + + + + + | % Monocytes | 8.55 | % | EXTERNAL | | | | | | LAB | | + + + + + + | % | 1.40 | % | EXTERNAL | | | Eosinophils | | | LAB | | + + + + + + | % Basophils | 0.56 | % | EXTERNAL | | | | | | LAB | | + + + + + + | Absolute | 5.23 | 1.90 - 7.40 | EXTERNAL | | | Segmented | | K/uL | LAB | | | Neutrophils | | | | | + + + + + + | Absolute | 1.19 | 1.00 - 3.90 | EXTERNAL | | | Lymphocytes | | K/uL | LAB | | + + + + + + | Absolute | 0.61 | 0.00 - 0.80 | EXTERNAL | | | Monocytes | | K/uL | LAB | | + + + + + + | Absolute | 0.10 | 0.00 - 0.50 | EXTERNAL | | | Eosinophils | | K/uL | LAB | | + + + + + + | Absolute | 0.04Comment: Testing | 0.00 - 0.10 | EXTERNAL | | | Basophils | performed at [facility], [address] | [address] | LAB | | | | [address], | | | | | | [place] [address] | | | | + + + + + + + + | Specimen | + + | Blood specimen | | (specimen) | + + + +---------+ + + | Performing | Address | City/State/Zipcode | Phone Number | | Organization | | | | + +---------+ + + | EXTERNAL LAB | | | | + +---------+ + + Phosphorus (12/04/2016 5:22 AM PDT) + + + + + + | Component | Value | Ref Range | Performed | Pathologist | | | | | At | Signature | + + + + + + | PHOSPHORUS | 4.4Comment: Testing | 2.3 - 4.8 mg/dL | EXTERNAL | | | | performed at [facility], [address] | | LAB | | | | [address], | | | | | | [place] [address] | | | | + + + + + + + + | Specimen | + + | Blood specimen | | (specimen) | + + + +---------+ + + | Performing | Address | City/State/Zipcode | Phone Number | | Organization | | | | + +---------+ + + | EXTERNAL LAB | | | | + +---------+ + + Magnesium (12/04/2016 5:22 AM PDT) + + + + + + | Component | Value | Ref Range | Performed | Pathologist | | | | | At | Signature | + + + + + + | Magnesium | 2.3Comment: Testing | 1.7 - 2.4 mg/dL | EXTERNAL | | | | performed at [facility], [address] | | LAB | | | | [address], | | | | | | [place] [address] | | | | + + + + + + + + | Specimen | + + | Blood specimen | | (specimen) | + + + +---------+ + + | Performing | Address | City/State/Zipcode | Phone Number | | Organization | | | | + +---------+ + + | EXTERNAL LAB | | | | + +---------+ + + CK Total (12/04/2016 5:22 AM PDT) + + + + + + | Component | Value | Ref Range | Performed | Pathologist | | | | | At | Signature | + + + + + + | CK, Total | 56Comment: Testing | 55 - 400 U/L | EXTERNAL | | | | performed at [facility] – [place], [place];[address] | | LAB | | | | [address];[place] | | | | | | [address] | | | | + + + + + + + + | Specimen | + + | Blood specimen | | (specimen) | + + + +---------+ + + | Performing | Address | City/State/Zipcode | Phone Number | | Organization | | | | + +---------+ + + | EXTERNAL LAB | | | | + +---------+ + + Bilirubin, Direct (12/04/2016 5:22 AM PDT) + + + + + + | Component | Value | Ref Range | Performed | Pathologist | | | | | At | Signature | + + + + + + | Bilirubin | 0.1Comment: Testing | 0.0 - 0.3 mg/dL | EXTERNAL | | | Direct | performed at [facility], [address] | | LAB | | | | [address], | | | | | | [place] [address] | | | | + + + + + + + + | Specimen | + + | | + + + +---------+ + + | Performing | Address | City/State/Zipcode | Phone Number | | Organization | | | | + +---------+ + + | EXTERNAL LAB | | | | + +---------+ + + Comprehensive Metabolic Panel (12/04/2016 5:22 AM PDT) + + + + + + | Component | Value | Ref Range | Performed | Pathologist | | | | | At | Signature | + + + + + + | Na | 143 | 135 - 145 | EXTERNAL | | | | | mmol/L | LAB | | + + + + + + | K | 4.2 | 3.5 - 4.9 | EXTERNAL | | | | | mmol/L | LAB | | + + + + + + | Cl | 107 | 99 - 109 mmol/L | EXTERNAL | | | | | | LAB | | + + + + + + | CO2 | 28 | 23 - 32 mmol/L | EXTERNAL | | | | | | LAB | | + + + + + + | Anion Gap | 12 | 5 - 20 mmol/L | EXTERNAL | | | | | | LAB | | + + + + + + | Glucose, | 104 (H) | 65 - 99 mg/dL | EXTERNAL | | | Fasting | | | LAB | | + + + + + + | BUN | 18 | 8 - 25 mg/dL | EXTERNAL | | | | | | LAB | | + + + + + + | Creatinine | 1.0 | 0.70 - 1.30 | EXTERNAL | | | | | mg/dL | LAB | | + + + + + + | BUN/Creatin | 18 | | EXTERNAL | | | ine Ratio | | | LAB | | + + + + + + | Calcium | 8.7 | 8.5 - 10.5 | EXTERNAL | | | | | mg/dL | LAB | | + + + + + + | Protein, | 6.6 | 6.3 - 8.2 g/dL | EXTERNAL | | | Total | | | LAB | | + + + + + + | Albumin | 3.6 | 3.3 - 4.8 g/dL | EXTERNAL | | | | | | LAB | | + + + + + + | Globulin | 3.0 | 1.3 - 4.9 g/dL | EXTERNAL | | | | | | LAB | | + + + + + + | A/G Ratio | 1.2 | 1.0 - 2.4 | EXTERNAL | | | | | | LAB | | + + + + + + | Bilirubin | 0.7 | 0.1 - 1.5 mg/dL | EXTERNAL | | | Total | | | LAB | | + + + + + + | ALP, | 77 | 35 - 115 U/L | EXTERNAL | | | External | | | LAB | | + + + + + + | AST | 23 | 10 - 45 U/L | EXTERNAL | | | | | | LAB | | + + + + + + | ALT | 56 | 10 - 65 U/L | EXTERNAL | | | | | | LAB | | + + + + + + | Estimated | >60Comment: GFR <60: | mL/min/1.73m2 | EXTERNAL | | | GFR | CHRONIC KIDNEY DISEASE, | | LAB | | | | IF FOUND OVER A 3 MONTH | | | | | | PERIOD.GFR <15: KIDNEY | | | | | | FAILURE.FOR | | | | | | AMERICANS, MULTIPLY THE | | | | | | CALCULATED GFR BY | | | | | | 1.210.Testing performed | | | | | | at [facility], [address] | | | | | | [address], | | | | | | [place] [address] | | | | + + + + + + + + | Specimen | + + | Blood specimen | | (specimen) | + + + +---------+ + + | Performing | Address | City/State/Zipcode | Phone Number | | Organization | | | | + +---------+ + + | EXTERNAL LAB | | | | + +---------+ + + ECG 12 lead (12/04/2016 4:26 AM PDT) + + + + + + | Component | Value | Ref Range | Performed | Pathologist | | | | | At | Signature | + + + + + + | DIAGNOSIS: | Normal sinus rhythmT | | EXTERNAL | | | | wave abnormality, | | LAB | | | | consider anterolateral | | | | | | ischemiaProlonged | | | | | | QTAbnormal ECGNo | | | | | | previous ECGs | | | | | | availableConfirmed by | | | | | | ADELINA HYMAN ([id number]) on | | | | | | 12/04/2016 3:57:36 PM | | | | + + + + + + + + | Specimen | + + | | + + + + + | Narrative | Performed At | + + + | [facility] | EXTERNAL LAB | + + + + +---------+ + + | Performing | Address | City/State/Zipcode | Phone Number | | Organization | | | | + +---------+ + + | EXTERNAL LAB | | | | + +---------+ + + CK-MB (12/03/2016 11:35 PM PDT) + + + + + -+ | Component | Value | Ref Range | Performed | Pathologist | | | | | At | Signature | + + + + + -+ | CK-MB | 4.0 (H) | 0.5 - 3.6 ng/mL | EXTERNAL | | | | | | LAB | | + + + + + -+ | CK-MB Index | 6.2Comment: CK INDEX | | EXTERNAL | | | | INTERPRETATION: | | LAB | | | | MMB ng/mL | | | | | | | | | | | |CK INDEX INTERPRETATION: | | | | | | MMB ng/mL | | | | | | | | | | + + + + + -+ + + | Specimen | + + | | + + + +---------+ + + | Performing | Address | City/State/Zipcode | Phone Number | | Organization | | | | + +---------+ + + | EXTERNAL LAB | | | | + +---------+ + + Troponin I (12/03/2016 11:35 PM PDT) + + + + + + | Component | Value | Ref Range | Performed | Pathologist | | | | | At | Signature | + + + + + + | Troponin I, | 0.07Comment: 0.00 to | 0.00 - 0.10 | EXTERNAL | | | Qual | 0.10 CONSISTENT WITH | ng/mL | LAB | | | | NORMAL POPULATION0.11 to | | | | | | 0.60 CONSISTENT WITH | | | | | | INCREASED RISK FOR | | | | | | ADVERSE OUTCOMES> 0.60 | | | | | | CONSISTENT | | | | | | WITH WHO CRITERIA FOR | | | | | | ACUTE TX Testing | | | | | | performed at [facility] – [place];[address] | | | | | | [address];[place] | | | | | | [id number] | | | | + + + + + + + + | Specimen | + + | Blood specimen | | (specimen) | + + + +---------+ + + | Performing | Address | City/State/Zipcode | Phone Number | | Organization | | | | + +---------+ + + | EXTERNAL LAB | | | | + +---------+ + + CK Total (12/03/2016 11:35 PM PDT) + + + + + + | Component | Value | Ref Range | Performed | Pathologist | | | | | At | Signature | + + + + + + | CK, Total | 65Comment: Testing | 55 - 400 U/L | EXTERNAL | | | | performed at [facility] – [place] [place];[address] | | LAB | | | | [address];[place], [place] | | | | | | [address] | | | | + + + + + + + + | Specimen | + + | Blood specimen | | (specimen) | + + + +---------+ + + | Performing | Address | City/State/Zipcode | Phone Number | | Organization | | | | + +---------+ + + | EXTERNAL LAB | | | | + +---------+ + + PTT (12/03/2016 11:34 PM PDT) + + + + + + | Component | Value | Ref Range | Performed | Pathologist | | | | | At | Signature | + + + + + + | aPTT, | 30Comment: Testing | 23 - 32 seconds | EXTERNAL | | | Patient | performed at [facility] [place] [place];[facility] | | LAB | | | | [address] [facility];[place], [place] | | | | | | [address] | | | | + + + + + + + + | Specimen | + + | Blood specimen | | (specimen) | + + + +---------+ + + | Performing | Address | City/State/Zipcode | Phone Number | | Organization | | | | + +---------+ + + | EXTERNAL LAB | | | | + +---------+ + + Protime INR (12/03/2016 11:34 PM PDT) + + + + + + | Component | Value | Ref Range | Performed | Pathologist | | | | | At | Signature | + + + + + + | INR | 1.1Comment: REFERENCE | | EXTERNAL | | | | RANGE:0.9 - 1.2 | | LAB | | | | NON-ANTICOAGULATED2.0 | | | | | | - 3.0 ALL OTHER | | | | | | THERAPEUTIC | | | | | | INDICATIONS2.5 - 3.5 | | | | | | MECHANICAL HEART VALVES, | | | | | | RECURRENT OR SYSTEMIC | | | | | | EMBOLISMTesting | | | | | | performed at [facility] – [place], [place];[address] | | | | | | [facility];[place], [place] | | | | | | [address] | | | | + + + + + + + + | Specimen | + + | Blood specimen | | (specimen) | + + + +---------+ + + | Performing | Address | City/State/Zipcode | Phone Number | | Organization | | | | + +---------+ + + | EXTERNAL LAB | | | | + +---------+ + + B Type Natriuretic Peptide (12/03/2016 11:34 PM PDT) + + + + + + | Component | Value | Ref Range | Performed | Pathologist | | | | | At | Signature | + + + + + + | BNP | 528 (H)Comment: Testing | 0 - 100 pg/mL | EXTERNAL | | | | performed at [facility] [place], [place];[address] | | LAB | | | | [address];[place], [place] | | | | | | [address] | | | | + + + + + + + + | Specimen | + + | Blood specimen | | (specimen) | + + + +---------+ + + | Performing | Address | City/State/Zipcode | Phone Number | | Organization | | | | + +---------+ + + | EXTERNAL LAB | | | | + +---------+ + + documented in this encounter Visit Diagnoses + + | Diagnosis | + + | Acute saddle pulmonary embolism without acute cor pulmonale (HCC) | + + documented in this encounter
--- OUTSIDE RECORDS SUMMARY | ~2019-11-12 | XMS | Encounter Summary ---
Demographics + + + | Address | [address] | | | [place] [address] | + + + | Home Phone | | + + + | Preferred Language | Unknown | + + + | Marital Status | | + + + | Yazdanism Affiliation | Unknown | + + + [...] Team Providers + +------+ + | Care Board Operator Name | Role | Phone | + +------+ + | Santi Dumont MD | PCP | | + +------+ + Encounter Details +--------+ + + + + | Date | Type | Department | Care Team | Description | +--------+ + + + + | 05/18/ | Orders Only | [facility] | Santi Dumont MD | Abnormal | | 2019 | | MEDICINE [address] | [address] | transaminases | | | | [address] [place], | [place], [place] | (Primary Dx) | | | | [place] [address] | [address] | | | | | [phone] | | | +--------+ + + + [...] on filedocumented as of this encounter Results Comprehensive Metabolic Panel (08/26/2018 2:12 PM PDT) + + + + + + | Component | Value | Ref Range | Performed | Pathologist | | | | | At | Signature | + + + + + + | Na | 140 | 136 - 145 | [facility] | | | | | mmol/L | [facility] | | | | | | [facility] | | | | | | [facility] - | | | | | | LABORATORY | | + + + + + + | K | 4.1 | 3.4 - 5.1 | [facility] | | | | | mmol/L | [facility] | | | | | | [facility] | | | | | | C[facility] - | | | | | | LABORATORY | | + + + + + + | Cl | 103 | 98 - 107 mmol/L | [facility] | | | | | | [facility] | | | | | | [facility] | | | | | | [facility] - | | | | | | LABORATORY | | + + + + + + | CO2 | 32 (H) | 20 - 31 mmol/L | [facility] | | [...] + + + + | Glucose | 105 | 60 - 106 mg/dL | [facility] | | | | | | [facility] | | | | | | [facility] | | | | | | C[facility] - | | | | | | LABORATORY | | + + + + + + | BUN | 19 | 9 - 23 mg/dL | [facility] | | | [facility] | [facility] | | [facility] | [facility] | | | | | | C[facility] - | | | | | | LABORATORY | | + + + + + + | Creatinine | 1.12 | 0.70 - 1.30 | [facility] | | | | | mg/dL | [facility] | | | | | | [facility] | | | | | | CENTER - | | | | | | LABORATORY | | + + + + + + | eGFR, | >60Comment: GLOMERULAR | >=60 | [facility] | | | non- | FILTRATION | mL/min/1.73m2 | [facility] | | | [place] | RATE,ESTIMATED | | MEDICAL | | | | mL/min/1.57q7Khye than | | CENTER - | | [...] + + + + | Calcium | 9.6 | 8.7 - 10.4 | [facility] | | | | | mg/dL | [facility] | | | | | | MEDICAL | | | | | | CENTER - | | | | | | LABORATORY | | + + + + + + | Albumin | 4.5 | 3.2 - 4.8 g/dL | [facility] | | | | | | [facility] | | | | | | MEDICAL | | | | | | CENTER - | | | | | | LABORATORY | | + + + + + + | Bilirubin | 0.8 | 0.3 - 1.2 mg/dL | [facility] | | | Total | | | [facility] | | | | | | MEDICAL | | | | | | CENTER - | | | | | | LABORATORY | | + + + + + + | Total | 6.6 | 5.7 - 8.2 g/dL | [facility] | | | Protein | | | [facility] | | | | | | MEDICAL | | | | | | CENTER - | | | | | | LABORATORY | | + + + + + + | AST | 46 (H) | 0 - 34 U/L | [facility] | | | | | | [facility] | | | | | | [facility] | | | | | | CENTER - | | | | | | LABORATORY | | + + + + + + | ALT | 60 (H) | 10 - 49 U/L | [facility] | | | | | | [facility] | | | | | | [facility]ICAL | | | | | | CENTER - | | | | | | LABORATORY | | + + + + + + | Alkaline | 52 | 46 - 116 U/L | [facility] | | | Phosphatase | | | [facility] | | | | | | MEDICAL | | | | | | CENTER - | | | | | | LABORATORY | | + + + + + + | Globulin | 2.1 | 2.1 - 3.8 g/dL | [facility] | | | | | | [facility] | | | [facility] | | MEDICAL | | | | | | CENTER - | | | | | | LABORATORY | | + + + + + + | Albumin/Julianna | 2.1 (H) | 0.8 - 1.9 | [facility] | | | bulin Ratio | | | [facility] | | | | | [facility] | | | | | | CENTER - | | | | | | LABORATORY | | + + + + + + | BUN/Creatin | 17.0 | | [facility] | | | ine Ratio | | | [facility] | | [...] [place]. | [address] | [place] | [phone] | | [facility] | | [address] | | | - LABORATORY | | | | + + + + + documented in this encounter Visit Diagnoses + + | Diagnosis | + + | Abnormal transaminases - Primary Nonspecific elevation of levels of transaminase or | | lactic acid dehydrogenase (LDH) | + + documented in this encounter"
--- OUTSIDE RECORDS SUMMARY | ~2019-11-12 | XMS | Encounter Summary ---
Demographics + + + | Address | [address] | | | [place] [address] | + + + | Home Phone | | + + + | Preferred Language | Unknown | + + + | Marital Status | | + + + | Buddhism Affiliation | Unknown | + + + | Race | White | + + + | Ethnic Group | Not or | + + + Author + + + | Author | [facility] | | | and [place] | + + + | Organization | [facility] | | | [...] Team Providers + +------+ + | Care Certified Shorthand Reporter Name | Role | Phone | + +------+ + | Santi Dumont MD | PCP | | + +------+ + Encounter Details +--------+ + + + + | Date | Type | Department | Care Team | Description | +--------+ + + + + | 03/03/ | Hospital | [facility] | Santi Dumont MD | SOB (shortness of | | 2020 | Encounter | [facility] | [address] [facility] | breath) | | | | [address] | [place] | | | | | [place] | [address] | | | | | [address] | | | | | | [phone] | | | +--------+ + + + [...] tablets by | 180 | 3 | 03/03/19 | | | lisinopril-hydrochlo | mouth Daily. | tablet | | 20 | 0 | | rothiazide | | | | | | | (PRINZIDE,ZESTORETIC | | | | | | | ) 20-25 MG per | | | | | | | tablet | | | | | | + + + +---------+ + + | nadolol (CORGARD) | Take one-half tablet | 15 | 5 | 01/25/20 | | | 80 MG tablet | once each day | tablet | | 19 | 0 | + + + +---------+ + + | potassium chloride | Take 1 tablet by | 90 | 3 | 08/27/19 | | | 20 mEq CR tablet | mouth Daily. | tablet | | 19 | 0 | + + + +---------+ + + | pramipexole | TAKE ONE TABLET BY | 30 | 2 | 01/04/20 | | | (MIRAPEX) 0.5 MG | MOUTH EVERY DAY | tablet | | 19 | 0 | | tablet | | | | | | + + + +---------+ + + | sertraline | TAKE ONE TABLET BY | 30 | 2 | 01/04/20 | | | (ZOLOFT) 50 mg | MOUTH EVERY DAY | tablet | | 19 | 0 | | tablet | | | | | | + + + +---------+ + + | terazosin (HYTRIN) | TAKE ONE CAPSULE BY | 30 | 5 | 01/25/20 | | | 5 mg capsule | MOUTH EVERY DAY | capsule | | 19 | 0 | + + + +---------+ + + | tiZANidine | Take 1 tablet by | 30 | 0 | 02/06/20 | | | (ZANAFLEX) 4 mg | mouth every 6 hours | tablet | | 19 | 0 | | tablet | as needed for [...] XR CHEST PA AND | Routin | 03/03/2019 | SOB (shortness of | Results for this | | LATERAL | e | 9:47 AM | breath) | procedure are in the | | | | PST | | results section. | + +--------+ + + + documented in this encounter Results XR Chest PA and Lateral (03/03/2019 9:47 AM PST) + + | Specimen | + + | | + + + + + | Impressions | Performed At | + + + | 1. GREATER ENLARGEMENT OF THE CARDIAC SILHOUETTE WITH ANTERIOR | [facility] | | BASILAR RETICULAR OPACITY, MORE PRONOUNCED ON THE RIGHT ALONG WITH | | | ELEVATION OF THE HEMIDIAPHRAGM, AND FAVORING POTENTIAL ATELECTASIS IN | | | COMBINATION WITH EPICARDIAL FAT. Dictated and Signed by: Leander Gomez | Jason Hancock MD Electronically signed: 03/03/2019 12:54 PM | | + + + + + + | Narrative | Performed At | + + + | PA AND LATERAL CHEST 03/03/2019 9:47 AM CLINICAL HISTORY: | [facility] | | shortness of breath COMPARISON: CT November 2017 and more remote | | | imaging FINDINGS: The cardiac silhouette is more pronounced. The | | | pulmonary vasculature is unremarkable. Elevation of the right | | | hemidiaphragm is chronic but more pronounced presently. There is | | | greater hazy reticular opacity at the anterior right base and | | | similar, chronic reticular opacity at the anterior left base, | | | corresponding with epicardial fat on previous CT. The upper lung | | | ortiz are clear. No pneumothorax or pleural effusion is evident. | | | Lumbar and cervical fusion hardware is partially imaged. There is | | | multilevel spondylosis. | | + + + + + | Procedure Note | + + | Francisco, Rad Results In - 03/03/2019 12:57 PM PST PA AND LATERAL CHEST 03/03/2019 9:47 AM | | | | CLINICAL HISTORY: shortness of breath | | | | COMPARISON: CT November 2017 and more remote imaging | | | | FINDINGS: The cardiac silhouette is more pronounced. The pulmonary vasculature | | is unremarkable. Elevation of the right hemidiaphragm is chronic but more | | pronounced presently. There is greater hazy reticular opacity at the anterior | | right base and similar, chronic reticular opacity at the anterior left base, | | corresponding with epicardial fat on previous CT. The upper lung ortiz are | | clear. No pneumothorax or pleural effusion is evident. Lumbar and cervical | | fusion hardware is partially imaged. There is multilevel spondylosis. | | | | IMPRESSION: | | | | 1. GREATER ENLARGEMENT OF THE CARDIAC SILHOUETTE WITH ANTERIOR BASILAR | | RETICULAR OPACITY, MORE PRONOUNCED ON THE RIGHT ALONG WITH ELEVATION OF THE | | HEMIDIAPHRAGM, AND FAVORING POTENTIAL ATELECTASIS IN COMBINATION WITH EPICARDIAL | | FAT. | | | | Dictated and Signed by: Leander Hancock MD | | Electronically signed: 03/03/2019 12:54 PM | + + + +---------+ + + | Performing | Address | City/State/Zipcode | Phone Number | | Organization | | | | + +---------+ + + | [facility] | | | | + +---------+ + + documented in this encounter Visit Diagnoses + + | Diagnosis | + + | SOB (shortness of breath) Shortness of breath | + + documented in this encounter"
--- OUTSIDE RECORDS SUMMARY | ~2019-11-12 | XMS | Encounter Summary ---
Demographics + + + | Address | [address] | | | [place] [address] | + + + | Home Phone | | + + + | Preferred Language | Unknown | + + + | Marital Status | | + + + | Sikh Affiliation | Unknown | + + + | Race | White | + + + | Ethnic Group | Not or | + + + Author + + + | Author | [facility] | + + + | Organization | [facility] | + + + | Address | Unknown | + + + | Phone | Unavailable | + + + Support + + +---------+ + | Name | Relationship | Address | Phone | + + +---------+ + | Gely Interiano | ECON | Unknown | | + + +---------+ + Care Team Providers + +------+ + | Care Dental Associate Name | Role | Phone | + +------+ + | Isaac Miranda MD | PCP | | + +------+ + Encounter Details +--------+ + + + + | Date | Type | Department | Care Team | Description | +--------+ + + + + | 09/18/ | Document-Sc | Health Information | Unknown . | | | 2011 | anned | Services [id number] | | | | | | [address] | | | | | | Mailcode: [id number] | | | | | | [facility] | | | | | | [place], [place] | | | | | | [address] | | | | | | [phone] | | | +--------+ + + + [...] + + + | RADIOLOGY | | 09/19/2011 | | Results for this | | | | 12:00 AM | | procedure are in the | | | | PDT | | results section. | + +--------+ + + + documented in this encounter Results RADIOLOGY (09/19/2011 12:00 AM PDT) + + + | Narrative | Performed At | + + + | | | + + + documented in this encounter Visit Diagnoses Not on filedocumented in this encounter"
--- OUTSIDE RECORDS SUMMARY | ~2019-11-12 | XMS | Encounter Summary ---
Demographics + + + | Address | [address] | | | [place] [address] | + + + | Home Phone | | + + + | Preferred Language | Unknown | + + + | Marital Status | | + + + | Catholic Affiliation | Unknown | + + [...] Team Providers + +------+ + | Care Outside Installation Machinist Name | Role | Phone | + +------+ + | Santi Dumont MD | PCP | | + +------+ + Reason for Visit +--------+--------+ + | Reason | Onset | Comments | | | Date | | +--------+--------+ + | Forms | 03/18/ | Disabled parking permit | | | 2019 | | +--------+--------+ + Encounter Details +--------+ + + + + | Date | Type | Department | Care Team | Description | +--------+ + + + + | 03/18/ | Telephone | [facility] | Santi Dumont MD | Forms (Disabled | 2019 | | MEDICINE [address] | [address] [place] [address] | parking permit) | | | | [place], | [place] | | | | | [place] [address] | [address] | | | | | [phone] | | | +--------+ + + + [...] Telephone Encounter - Magdalene Roper RN - 03/18/2019 4:56 PM PSTAmended form given to patient and copied for scan. Electronically signed by Magdalene Roper RN at 2019 5:03 PM PSTTelephone Encounter - Santi Dumont MD - 03/18/2019 4:51 PM PSTDisabled parking permit renewed for permanent status for diagnosis of hip arthritis Electronically si gned by Santi Dumont MD at 03/18/2019 4:52 PM PSTTelephone Encounter - Briseida Page - 03/18/2019 4:20 PM PSTPatient states DMV returned theparking Permit application. Enriqueta ent wants to see if can but temporary dates on the form if it is intended to be temporar y like the one he has had for the last 3 years or if he thinks a permanent is a better optio n check the Original ( first time) renewable box.Please advise documented in this encounter Plan of Treatment Not on filedocumented as of this encounter Visit Diagnoses Not on filedocumented in this encounter"
--- OUTSIDE RECORDS SUMMARY | ~2019-11-12 | XMS | Encounter Summary ---
Demographics + + + | Address | [address] | | | [place] [address] | + + + | Home Phone [...] Providers + +------+ + | Care Medical Service Technician Name | Role | Phone | + +------+ + | Santi Dumont MD | PCP | | + +------+ + Encounter Details +--------+ + + + + | Date | Type | Department | Care Team | Description | +--------+ + + + + | 09/29/ | Imaging | [facility] | Provider, | | | 2020 | Exam | [facility] | [address] | | | | | IMAGING [address] | | | | | [address] | [place] [address] | | | | | [place] [address] | | | | | | [phone] | | | +--------+ + + + [...] + documented in this encounter Results XR Hip Right 2-3 Views (08/21/2019 [...]
--- OUTSIDE RECORDS SUMMARY | ~2019-11-12 | XMS | Encounter Summary ---
Demographics + + + | Address | [address] | | | [place] [address] | + + + | Home Phone | | + + + | Preferred Language | Unknown | + + + | Marital Status | | + + + | Yarsanism Affiliation | Unknown | + + + [...] Team Providers + +------+ + | Care Musical String Maker Name | Role | Phone | + +------+ + | Isaac Miranda MD | PCP | | + +------+ + Encounter Details +--------+ + + + + | Date | Type | Department | Care Team | Description | +--------+ + + + + | 10/10/ | Document-Sc | Health Information | Unknown . | | | 2011 | anned | Services [id number] | | | | | | [address] | | | | | | Mailcode: [id number] | | | | | | [facility] | | | | | | [place], [place] | | | | | | [address] | | | | | | [phone] | | | +--------+ + + + [...] + + + | RADIOLOGY | | 10/11/2011 | | Results for this | | | | 12:00 AM | | procedure are in the | | | | PDT | | results section. | + +--------+ + + + documented in this encounter Results RADIOLOGY (10/11/2011 12:00 AM PDT) + + + | Narrative | Performed At | + + + | | | + + + documented in this encounter Visit Diagnoses Not on filedocumented in this encounter"
--- OUTSIDE RECORDS SUMMARY | ~2019-11-12 | XMS | Encounter Summary ---
Demographics + + + | Address | [address] | | | [place] [address] | + + + | Home Phone [...] + + + | Author | [facility] | | | and [place] | + + + | Organization | [facility] | | | [...] Team Providers + +------+ + | Care Turbogenerator Operator Name | Role | Phone | + +------+ + | Isaac Miranda MD | PCP | | + +------+ + Reason for Visit +--------+--------+ + | Reason | Onset | Comments | | | Date | | +--------+--------+ + | Other | 10/11/ | MEDICATION REQUEST | | | 2011 | | +--------+--------+ + Encounter Details +--------+ + + + + | Date | Type | Department | Care Team | Description | +--------+ + + + + | 11/29/ | Telephone | [facility] [place] | Mahendra Luna MD | Other (MEDICATION | | 2011 | | NEUROSURGERY [address] | [address] | REQUEST) | | | | [facility] [address] | [place] [address] | | | | | [place] | [phone] | | | | | [address] | | | | | | [phone] | | | +--------+ + + + [...] Notes Telephone Encounter - Hillary Dailey - 11/30/2011 5:13 PM PDTJana is advised per Dr.Ya marie. Hillary Dailey elephone Encounter - Mahendra Luna MD - 11/30/2011 2:08 PM PDTHe is beyond 90 days which is the time I can presc ribe meds for acute pain by law. I would recommend he discuss this with his PCP. Mahendra Luna elephone Encounter - janetteHillary rinaldi - 11/30/2011 12:08 PM PDTPLEASE ADVISE? Hillary Dailey elephone Encounter - Neto Gross - 11/30/2011 9:56 AM PDTPatient is having back pain and has been seen for th is issue in office. He had cervical surgery in 07.06.2011 and has 3 days of PERCOCET left al dada with "some muscle relaxer" but the medication would be used for the back pain. She is no t sure if she should contact his PCP for this or if Dr Luna would be willing to prescribe lena ething "a bit milder" than the PERCOCET. Please advise. documented in this encount er Plan of Treatment Not on filedocumented as of this encounter Visit Diagnoses Not on filedocumented in this encounter
--- OUTSIDE RECORDS SUMMARY | ~2019-11-12 | XMS | Encounter Summary ---
Demographics + + + | Address | [address] | | | [place] [address] | + + + | Home Phone | | + + + | Preferred Language | Unknown | + + + | Marital Status | | + + + | Yazidism Affiliation | Unknown | + + + [...] Team Providers + +------+ + | Care Merchandise Carrier Name | Role | Phone | + +------+ + | Isaac Miranda MD | PCP | | + +------+ + Reason for Visit +--------+--------+ + | Reason | Onset | Comments | | | Date | | +--------+--------+ + | Other | 04/12/ | CHANGE DATE OF ONSET IN [employer] PAPERWORK | | | 2012 | | +--------+--------+ + Encounter Details +--------+ + + + + | Date | Type | Department | Care Team | Description | +--------+ + + + + | 04/12/ | Tele[facility] | [facility] [place] | Mahendra Luna MD | Other (CHANGE DATE | | 2012 | | NEUROSURGERY [address] | [address] | OF ONSET IN [employer] | | | | [address] | [place] [address] | PAPERWORK) | | | | [place] | [phone] | | | | | [address] | | | | | | [phone] | | | +--------+ + + + [...] this encounter Miscellaneous Notes Telephone Encounter - Mahendra Luna MD - 04/16/2012 11:07 AM PSTI reviewed his old chart an d found that 03/27 was a clinical programmer error. I am happy to change these dates. Mahendra Luna elephone Encounter - Hillary Avilez - 04/12/2012 10:48 AM PSTJana calls to request a change of date of onset on [employer] paperwork that was filled out previously. Date of onset states 03/27/12; as this is th e date of onset in H&P. Gely states this is incorrect. Date should be 04/24/12. She will fa x workman's compensation paperwork verifying this date. Hillary Dailey documented in this e ncounter Plan of Treatment Not on filedocumented as of this encounter Visit Diagnoses Not on filedocumented in this encounter"
--- OUTSIDE RECORDS SUMMARY | ~2019-11-12 | XMS | Encounter Summary ---
Demographics + + + | Address | [address] | | | [place] [address] | + + + | Home Phone [...] Team Providers + +------+ + | Care Logging Engineer Name | Role | Phone | + +------+ + | Santi Dumont MD | PCP | | + +------+ + Reason for Visit + + + | Reason | Comments | + + + | Follow-up | 4 months follow up Essential hypertension/Essential Tremor | + + + Encounter Details +--------+---------+ + + + | Date | Type | Department | Care Team | Description | +--------+---------+ + + + | 09/10/ | Office | [facility] | Santi Dumont MD | Essential | | 2018 | Visit | MEDICINE [address] | [address] [place] [address] | hypertension | | | | [place], | [place] | (Primary Dx); Acute | | | | [place] [address] | [address] | saddle pulmonary | | | | [phone] | | embolism with acute | | | | | | cor pulmonale (HCC) | +--------+---------+ + + + Social [...] + + + | Blood Pressure | 150/90 | 09/10/2017 2:59 PM | | | | | PDT | | + + + + + | Pulse | 64 | 09/10/2017 2:12 PM | | | | | PDT | | + + + + + | Temperature | 37.1 C (98.8 F) | 09/10/2017 2:12 PM | | | | | PDT | | + + + + + | Respiratory Rate | 20 | 09/10/2017 2:12 PM | | | | | PDT | | + + + + + | Oxygen Saturation | 96% | 09/10/2017 2:12 PM | | | | | PDT | | + + + + + | Inhaled Oxygen | - | - | | | Concentration | | | | + + + + + | Weight | 118 kg (260 lb 2.3 | 09/10/2017 2:12 PM | | | | oz) | PDT | | + + + + + | Height | 177.8 cm (5' 10") | 09/10/2017 2:12 PM | | | | | PDT | | + + + + + | Body Mass Index | 37.33 | 09/10/2017 2:12 PM | | | | | PDT | | + + + + + documented in this encounter Patient Instructions Patient Instructions Maria Teresa Tejeda CMA - 09/10/2017 2:20 PM PDTDiscontinue Furosemide a nd lisinopril Start lisinopril-HCTZ 20-25 mg take 2 tablets once daily Discontinue Eliquis Will order echocardiogram after your follow-up appointment Ok to cancel appointment with director of safety. Follow up in 2 months documented in this encounter Progress Notes Santi Dumont MD - 09/10/2017 2:20 PM PDT 09/10/2017 Patrice Interiano 1955 History: Patrice Interiano is a 62 y.o. male here for follow-up hypertension and pulmonary embolism He underwent left total hip replacement 06/07/2017, with good clinical results. Home blood pressures are elevated, ranging 150 systolic. He has frequent back irritation. He denies b leeding or bruising problems as complications of Eliquis use. He had a massive pulmonary embolism in November 2016 that was provoked by neurosurgery. He was fully anticoagulated for 5.5 months, when d-dimer was negative. He underwent hip replac ement without thromboembolic complication, but restarted Eliquis for DVT prophylaxis postop. Current Outpatient Prescriptions Medication Sig Dispense Refill acetaminophen (TYLENOL) 500 mg tablet Take 500 mg by mouth every 6 hours as needed for Pain. acetaminophen-codeine (TYLENOL #3) 300-30 mg per tablet Take 1 tablet by mouth every 6 hours as needed for Pain. albuterol (PROAIR HFA) 90 mcg/puff inhaler Inhale 2 puffs into the lungs every 6 hours as needed for Wheezing. 6.7 g 3 ELIQUIS 5 MG tablet Take one tablet by mouth twice daily 60 tablet 3 furosemide (LASIX) 40 mg tablet Take 1 tablet by mouth Daily. 30 tablet 5 gabapentin (NEURONTIN) 300 mg capsule Take 1 capsule by mouth 4 times daily. (Patient t aking differently: Take 300 mg by mouth Daily.) 90 capsule lisinopril (PRINIVIL, ZESTRIL) 20 mg tablet Take 2 tablets by mouth Daily. 40 tablet 5 loratadine (CLARITIN) 10 mg tablet Take 10 mg by mouth Daily. nadolol (CORGARD) 80 MG tablet Take 0.5 tablets by mouth Daily. 30 tablet 5 omeprazole (PRILOSEC) 20 mg capsule Take 20 mg by mouth every morning (before breakfast ). POTASSIUM CHLORIDE PO Take 20 mEq by mouth Daily. pramipexole (MIRAPEX) 0.5 MG tablet Take 1 tablet by mouth Daily. 90 tablet 3 Senna 30 MG MISC Take 30 mg by mouth as needed. sertraline (ZOLOFT) 50 mg tablet Take 1 tablet by mouth Daily. 30 tablet 5 terazosin (HYTRIN) 5 mg capsule Take 1 capsule by mouth Daily. 30 capsule 6 tiZANidine (ZANAFLEX) 4 mg tablet Take 4 mg by mouth every 6 hours as needed for Muscle spasms. No current facility-administered medications for this visit. No Known Allergies Review of Systems Respiratory: Negative for shortness of breath. Cardiovascular: Negative for chest pain. Physical Exam: BP 150/80 | Pulse 64 | Temp 37.1 C (98.8 F) (Tympanic) | Resp 20 | Ht 1.778 m (5' 1 0") | Wt 118 kg (260 lb 2.3 oz) | SpO2 96% | BMI 37.33 kg/m General: obese man in no distress. HEENT: no oral ulcers or thrush. Lungs: clear to auscultation & percussion. Respirations unlabored. Heart: regular rhythm, no murmur. Extremities: trace pedal edema. Psych: normal affect. Assessment: 1. Essential hypertension , control unsatisfactory Target BP goal 130-140 systolic 2. History of Acute saddle pulmonary embolism with acute cor pulmonale (HCC) Plan: 1. Discontinue Furosemide and lisinopril 2. Start lisinopril-HCTZ 20-25 mg take 2 tablets once daily 3. Reviewed guidelines for long-term anticoagulation for venous thromboembolism. Since he had a first, provoked episode only, long-term anticoagulation is not required. Recommend d iscontinuation of Eliquis since he is more than 4 weeks postop from hip replacement. 4. Needs follow-up echocardiogram after return to clinic to monitor improvement in right h eart failure Followup Instructions: Return in about 2 months (around 11/11/2017). I, Santi Dumont MD, personally performed the services described in this documentation as scribed by Maria Teresa Tejeda M.A in my presence, and the documentation is both accurate and com plete. Santi Dumont MD 09/10/2017 documented in this enc ounter Plan of Treatment Not on filedocumented as of this encounter Visit Diagnoses + + | Diagnosis | + + | Essential hypertension - Primary Unspecified essential hypertension | + + | Acute saddle pulmonary embolism with acute cor pulmonale (HCC) | + + documented in this encounter
--- OUTSIDE RECORDS SUMMARY | ~2019-11-12 | XMS | Encounter Summary ---
Demographics + + + | Address | [address] | | | [place] [address] | + + + | Home Phone [...] Team Providers + +------+ + | Care Pound Keeper Name | Role | Phone | + [...] Description | +--------+--------+ + + + | 01/24/ | Refill | [facility] [place] [facility] | Santi Dumont MD | Medication Refill | | 2019 | | MEDICINE [address] [place] [address] | [address] [place] [address] | | | | | [address] [place] [address], | [place], [place] | | | | | [place] [address] | [address] | | | | | [phone] | | | +--------+--------+ + + + [...]
--- OUTSIDE RECORDS SUMMARY | ~2019-11-12 | XMS | Encounter Summary ---
Demographics + + + | Address | [address] | | | [place] [address] | + + + | Home Phone | | + + + | Preferred Language | Unknown | + + + | Marital Status | | + + + | Zoroastrian Affiliation | Unknown | + + + [...] Team Providers + +------+ + | Care Vba Programmer Name | Role | Phone | + [...] Description | +--------+--------+ + + + | 02/07/ | Refill | [facility] [place] [facility] | Santi Dumont MD | Medication Refill | | 2017 | | MEDICINE [address] [place] [address] | [address] [place] [address] | | | | | [address] [place], | [place], [place] | | | | | [place] [address] | [address] | | | | | [phone] | | | +--------+--------+ + + + [...]
--- OUTSIDE RECORDS SUMMARY | ~2019-11-12 | XMS | Encounter Summary ---
Demographics + + + | Address | [address] | | | [place] [address] | + + + | Home Phone | | + + + | Preferred Language | Unknown | + + + | Marital Status | | + + + | Hinduism Affiliation | Unknown | + + + | Race | White | + + + | Ethnic Group | Not or | + + + Author + + + | Author | [facility] | | | and [place] | + + + | Organization | [facility] | | [...] Team Providers + +------+ + | Care Drawer Maker Name | Role | Phone | [...] Description | +--------+--------+ + + + | 02/27/ | Refill | [facility] [place] [facility] | Santi Dumont MD | Medication Refill | | 2019 | | MEDICINE [address] [place] [address] | [address] [place] [address] | | | | | [address] [place], | [place], [place] | | | | | [place] [address] | [address] | | | | | [phone] | | | +--------+--------+ + + + [...]
--- OUTSIDE RECORDS SUMMARY | ~2019-11-12 | XMS | Encounter Summary ---
Demographics + + + | Address | [address] | | | [place] [address] | + + + | Home Phone [...] Team Providers + +------+ + | Care Tube Building Machine Operator Name | Role | Phone | + +------+ + PCP | Unavailable | + +------+ + Encounter Details +--------+ + + + + | Date | Type | Department | Care Team | Description | +--------+ + + + + | 08/16/ | Hospital | [facility] | Mahendra Luna MD | | | 2011 | Encounter | MED CTR XRAY [address] | [address] | | | | | [place] | [place] [address] | | | | | [place] [address] | [phone] | | | | | [phone] | | | +--------+ + + + [...] | XR CERVICAL SPINE 1 | | 08/17/2011 | | Results for this | | VIEW | | 9:40 AM | | procedure are in the | | | | PDT | | results section. | + +--------+ + + + documented in this encounter Results XR Cervical Spine 1 Vw (08/17/2011 9:40 AM PDT) + + | Specimen | + + | | + + + + + | Narrative | Performed At | + + + | [facility] Diagnostic Imaging Department | [facility] | | [address] [facility] | [facility] | | CERVICAL SPINE, TWO VIEW SERIES: | DIAG IMG | | 08/17/2011 CLINICAL HISTORY: ANTERIOR CERVICAL DISKECTOMY | | | FOLLOWUP. COMPARISON: July 06, 2011. FINDINGS: There is | | | stable alignment of the cervical vertebral bodies status post | | | multilevel ACDF. V entral plate and screws and intervertebral bone | | | spacers are in place from C4 through C7. Bone spacer s are in | | | stable position. The ventral fusion plate and screws are intact. | | | There are degenerative sp ondylitic changes in the adjacent C3-4 | | | and C7-T1 levels. IMPRESSION: HEALING ACDF C4-C7. Dictated | | | Date/Time: 08/17/2011 12:19 Transcribed Date/Time: 08/17/2011 | | | 12:42 Trimming Department Blocker: <Electronically Signed by Lucio Mora | | | MD Ashia> 08/17/11 1972 | | + + + + + | Procedure Note | + + | Francisco, Rad Conversion - 03/28/2013 5:36 PM [facility] | | Diagnostic Imaging Department [address] [place] [address] | | CERVICAL SPINE, TWO VIEW SERIES: 08/17/2011 CLINICAL | | HISTORY: ANTERIOR CERVICAL DISKECTOMY FOLLOWUP. COMPARISON: July 06, 2011. FINDINGS: | | There is stable alignment of the cervical vertebral bodies status post multilevel ACDF. | | Ventral plate and screws and intervertebral bone spacers are in place from C4 through | | C7. Bone spacers are in stable position. The ventral fusion plate and screws are | | intact. There are degenerative spondylitic changes in the adjacent C3-4 and C7-T1 | | levels. IMPRESSION: HEALING ACDF C4-C7. Dictated Date/Time: 08/17/2011 | | 12:19Transcribed Date/Time: 08/17/2011 12:42Transcriptionist: <Electronically | | Signed by Lucio Ang MD> 08/17/111611 | | | |FINDINGS: There is stable alignment of the cervical vertebral bodies status post multileve l ACDF. V | |entral plate and screws and intervertebral bone spacers are in place from C4 through C7. B one spacer | |s are in stable position. The ventral fusion plate and screws are intact. There are degen erative sp | |ondylitic changes in the adjacent C3-4 and C7-T1 levels. | | | |IMPRESSION: HEALING ACDF C4-C7. | | | |Dictated Date/Time: 08/17/2011 12:19 | |Transcribed Date/Time: 08/17/2011 12:42 | |Trimming Department Blocker: RAMOS | |<Electronically Signed by Lucio Ang MD> 08/17/112 | + + + +---------+ + + | Performing | Address | City/State/Zipcode | Phone Number | | Organization | | | | + +---------+ + + | [place] | | | | | [facility] | | | | + +---------+ + + documented in this encounter Visit Diagnoses Not on filedocumented in this encounter"
--- OUTSIDE RECORDS SUMMARY | ~2019-11-12 | XMS | Encounter Summary ---
Demographics + + + | Address | [address] | | | [place] [address] | + + + | Home Phone [...] + + + | Author | [facility] | | | and [place] | + + + | Organization | [facility] | | [...] Team Providers + +------+ + | Care Direct Support Staff Member Name | Role | Phone | + +------+ + PCP | Unavailable | + +------+ + Encounter Details +--------+ + + + + | Date | Type | Department | Care Team | Description | +--------+ + + + + | 05/31/ | Hospital | [facility] | Mahendra Luna MD | | | 2011 | Encounter | MED CTR XRAY [address] | [address] | | | | | [place] | [place] [address] | | | | | [place] [address] | [phone] | | | | | [phone] | | | +--------+ + + + [...] + +--------+ + + + | XR LUMBAR SPINE 4 + | | 06/01/2011 | | Results for this | | VW | | 7:35 AM | | procedure are in the | | | | PDT | | results section. | + +--------+ + + + documented in this encounter Results XR Lumbar Spine 4 + Vw (06/01/2011 7:35 AM PDT) + + | Specimen | + + | | + + + + + | Narrative | Performed At | + + + | [facility] Diagnostic Imaging Department | [facility] | | [address] [facility] | [facility] | | LUMBAR SPINE, 06/01/2011 | DIAG IMG | | CLINICAL HISTORY: BACK PAIN. FINDINGS: AP, lateral and | | | lateral flexion and extension views of the lumbar spine are reviewed. | | | There are five lumbar segments. Vertebral body heights are | | | normally maintained. There is disk space n arrowing with endplate | | | sclerotic change at multiple levels, most severe at L5-S1 but also | | | notable at L4-5 and L1-2 and L2-3. There is minimal(less than 5 | | | mm)retrolisthesis of L1 over L2 and L2 over L3. There is similar | | | degree of anterolisthesis of L4 over L5 on the neutral view. Alignment | | | is otherwise normal in the sagittal plane. In flexion, the | | | anterolisthesis of L4 over L5 increases significantly. In extension, | | | this almost comp letely resolves while the L2-3 retrolisthesis | | | increases. L1-2 remains unchanged. Also on the extensio n views, | | | vacuum disk phenomenon is seen at the L5-S1 level. Facet joints are | | | sclerotic particularly f rom L3 to S1. IMPRESSION: 1. | | | MULTILEVEL DEGENERATIVE SPONDYLITIC CHANGE, WITH SOME DEGREE OF | | | INSTABILITY DEMONSTRATED RADIOGRAP HICALLY AT L4-5 AND POSSIBLY L2-3, | | | DISCUSSED ABOVE. Dictated Date/Time: 06/01/2011 13:38 | | | Transcribed Date/Time: 06/01/2011 13:44 Strawhat Blocking Operator: | | | <Electronically Signed by Dickson Armenta MD> 06/01/11 1407 | | + + + + + | Procedure Note | + + | Francois Singh Conversion - 03/28/2013 5:06 PM [facility] | | Diagnostic Imaging Department [address] [facility] | | LUMBAR SPINE, 06/01/2011 CLINICAL HISTORY: BACK PAIN. | | FINDINGS: AP, lateral and lateral flexion and extension views of the lumbar spine are | | reviewed. There are five lumbar segments. Vertebral body heights are normally | | maintained. There is disk space narrowing with endplate sclerotic change at multiple | | levels, most severe at L5-S1 but also notable at L4-5 and L1-2 and L2-3. There is | | minimal(less than 5 mm)retrolisthesis of L1 over L2 and L2 over L3. There is similar | | degree of anterolisthesis of L4 over L5 on the neutral view. Alignment is otherwise | | normal in the sagittal plane. In flexion, the anterolisthesis of L4 over L5 increases | | significantly. In extension, this almost completely resolves while the L2-3 | | retrolisthesis increases. L1-2 remains unchanged. Also on the extension views, vacuum | | disk phenomenon is seen at the L5-S1 level. Facet joints are sclerotic particularly from | | L3 to S1. IMPRESSION: 1. MULTILEVEL DEGENERATIVE SPONDYLITIC CHANGE, WITH SOME DEGREE | | OF INSTABILITY DEMONSTRATED RADIOGRAPHICALLY AT L4-5 AND POSSIBLY L2-3, DISCUSSED | | ABOVE. Dictated Date/Time: 06/01/2011 13:38Transcribed Date/Time: 06/01/2011 | | 13:44Transcriptionist: <Electronically Signed by Dickson Armenta MD> 06/01/11 | | 1407 | |In flexion, the anterolisthesis of L4 over L5 increases significantly. In extension, this a lmost comp | |letely resolves while the L2-3 retrolisthesis increases. L1-2 remains unchanged. Also on th e extensio | |n views, vacuum disk phenomenon is seen at the L5-S1 level. Facet joints are sclerotic part icularly f | |rom L3 to S1. | | | |IMPRESSION: | |1. MULTILEVEL DEGENERATIVE SPONDYLITIC CHANGE, WITH SOME DEGREE OF INSTABILITY DEMONSTRATED RADIOGRAP | |HICALLY AT L4-5 AND POSSIBLY L2-3, DISCUSSED ABOVE. | | | |Dictated Date/Time: 06/01/2011 13:38 | |Transcribed Date/Time: 06/01/2011 13:44 | |Strawhat Blocking Operator: | |<Electronically Signed by Dickson Armenta MD> 06/01/11 1407 | + + + +---------+ + + [...]
--- OUTSIDE RECORDS SUMMARY | ~2019-11-12 | XMS | Encounter Summary ---
Demographics + + + | Address | [address] | | | [place] [address] | + + + | Home Phone | | + + + | Preferred Language | Unknown | + + + | Marital Status | | + + + | Church Affiliation | Unknown | + + + [...] Team Providers + +------+ + | Care Fork Operator Name | Role | Phone | + +------+ + | Isaac Miranda MD | PCP | | + +------+ + Encounter Details +--------+ + + + + | Date | Type | Department | Care Team | Description | +--------+ + + + + | 12/03/ | Hospital | [facility] | Conversion | Pain | | 2017 | Encounter | CONVERSION [address] | Transaction, | | | | | [address] | Provider Unknown | | | | | [place], [place] | [phone] | | | | | [address] | | | | | | [phone] | | | +--------+ + + + [...] +--------+ + + + | CT ANGIOGRAM CHEST | Routin | 12/03/2016 | | Results for this | | ABDOMEN W CONTRAST | e | 7:18 PM | | procedure are in the | | | | PDT | | results section. | + +--------+ + + + documented in this encounter Results CT Angiogram Chest Abdomen w Contrast (12/03/2016 7:18 PM PDT) + + | Specimen | + + | | + + + + + | Narrative | Performed At | + + + | This is a non-reportable procedure without a radiologist report and | | | is used for image storage only | | + + + + + | Procedure Note | + + | Francois Singh - 10/02/2018 9:34 PM PDT This is a non-reportable procedure | | without a radiologist report and isused for image storage only | + + documented in this encounter Visit Diagnoses + + | Diagnosis | + + | Pain Generalized pain | + + documented in this encounter"
--- OUTSIDE RECORDS SUMMARY | ~2019-11-12 | XMS | Encounter Summary ---
Demographics + + + | Address | [address] | | | [place] [address] | + + + | Home Phone [...] | [facility] | | | and [place] | + [...] Team Providers + +------+ + | Care Automotive Airconditioning Mechanic Name | Role | Phone | [...] Description | +--------+--------+ + + + | 09/09/ | Refill | [facility] [place] [facility] | Santi Dumont MD | Medication Refill | | 2019 | | MEDICINE [address] [place] [address] | [address] [place] [address] | | | | | [address] [place], | [place], [place] | | | | | [place] [address] | [phone] | | | | | [phone] | | | +--------+--------+ + + + [...] documented as of this encounter Miscellaneous Notes Addendum Note - Magdalene Nicholas RN - 09/09/2018 4:18 PM PDT Addended by: MAGDALENE NICHOLAS on: 09/09/2018 16:18 Modules accepted: Orders elephone Enc [facility] - Magdalene Nicholas RN - 09/09/2018 3:53 PM PDTI talked with the pharmacy and t he patient. He is wanting combination Lisinopril/Hctz. His total daily Lisinopril dose is 40mg and Hctz is 50mg daily. I called [facility] in [place] and they do not have an active r x on file for him. Rx filled for Lisinopril/Hctz 20/25mg take 2 tabs daily. Electronicall y signed by Magdalene Nicholas RN at 09/09/2018 4:16 PM PDTTelephone Encounter - Beryl Mancera - 09/09/2018 9:08 AM PDTMedication called to check on the status of his medi cation refill. Patient states that he is out of the medication. Please advise. documented in this encounter Plan of Treatment Not on filedocumented as of this encounter Visit Diagnoses Not on filedocumented in this encounter"
--- OUTSIDE RECORDS SUMMARY | ~2019-11-12 | XMS | Encounter Summary ---
Demographics + + + | Address | [address] | | | [place] [address] | + + + | Home Phone [...] Team Providers + +------+ + | Care Fitter / Welder Name | Role | Phone | + +------+ + | Isaac Miranda MD | PCP | | + +------+ + Reason for Visit + +--------+ + | Reason | Onset | Comments | | | Date | | + +--------+ + | Letter for | 01/08/ | [place] [employer] | | School/Work | 2013 | | + +--------+ + Encounter Details +--------+ + + + + | Date | Type | Department | Care Team | Description | +--------+ + + + + | 02/26/ | Telephone | [facility] | Mahendra Luna MD | Letter for | | 2013 | | NEUROSURGERY [address] | School/Work ([place] | | | | [address] | [place] [address] | [employer]) | | | | [place] | [phone] | | | | | [address] | | | | | | [phone] | | | +--------+ + + + [...] Notes Telephone Encounter - Hillary Dailey - 02/26/2013 5:08 PM PSTRequest for extension of base year for [place] [employer] filled out/signed back to Gely (as requested by the patient) fax # [phone]. Copy scanned into [employer]. documented in this enc ounter Plan of Treatment Not on filedocumented as of this encounter Visit Diagnoses Not on filedocumented in this encounter"
--- OUTSIDE RECORDS SUMMARY | ~2019-11-12 | XMS | Encounter Summary ---
Demographics + + + | Address | [address] | | | [place] [address] | + + + | Home Phone [...] Author + + + | Author | [facility] | | | and Brianana | + + + | Organization | [facility] | | [...] Providers + +------+ + | Care Patient Financial Advocate Name | Role | Phone | + [...] | Santi Fleming MD | [address] | | | | | heart | [address] | [place], | | | | | failure, | STREET | [place] | | | | | unspecified | [place], | [address] | | | | | HF | [place] [address] | Phone: | | | | | chronicity | Phone: | [phone] | | | | | ([facility]) | [phone] | Fax: | | | | | Procedures | Fax: | [phone] | | | | | ECHO | [phone] | | | | | | Complete | | | +--------+--------+ + + + + Reason for Visit + + + | Reason | Comments | + + + | Annual Exam | Wellness Exam/Discuss GI issues | + + + Encounter Details +--------+---------+ + + + | Date | Type | Department | Care Team | Description | +--------+---------+ + + + | 05/15/ | Office | [facility] | Santi Dumont MD | Preventative health | | 2019 | Visit | MEDICINE [address] [place] [address] | [address] [place] [address] | care (Primary Dx); | | | | [address] [place], | [place] | Essential | | | | [place] [address] | [address] | hypertension; Class | | | | [phone] | | 2 severe obesity due | | | | | | to excess calories | | | | | | with serious | | | | | | comorbidity and body | | | | | | mass index (BMI) of | | | | | | 35.0 to 35.9 in | | | | | | adult (HCC); | | | | | | Right-sided heart | | | | | | failure, unspecified | | | | | | HF chronicity | | | | | | (HCC); Need for Tdap | | | | | | vaccination; Colon | | | | | | cancer screening | +--------+---------+ + + + Social History [...] + + + | Blood Pressure | 118/66 | 05/15/2018 1:22 PM | | | | | PDT | | + + + + + | Pulse | 86 | 05/15/2018 1:22 PM | | | | | PDT | | + + + + + | Temperature | 36.8 C (98.2 F) | 05/15/2018 1:22 PM | | | | | PDT | | + + + + + | Respiratory Rate | 18 | 05/15/2018 1:22 PM | | | | | PDT | | + + + + + | Oxygen Saturation | 93% | 05/15/2018 1:22 PM | | | | | PDT | | + + + + + | Inhaled Oxygen | - | - | | | Concentration | | | | + + + + + | Weight | 119.4 kg (263 lb 3.7 | 05/15/2018 1:22 PM | | | | oz) | PDT | | + + + + + | Height | 177.8 cm (5' 10") | 05/15/2018 1:22 PM | | | | | PDT | | + + + + + | Body Mass Index | 37.77 | 05/15/2018 1:22 PM | | | | | PDT | | + + + + + documented in this encounter Patient Instructions Patient Instructions Maria Teresa Tejeda CMA - 05/15/2018 1:40 PM PDT Tdap vaccine today Lab check today To do echo complete [facility] weight loss recommendations: 1. Reduce calorie intake 200-300 calories per day 2. 30 min daily activity is essential to weight loss & maintenence Losing Weight for Heart Health Excess weight is a major risk factor for heart disease. Losing weight has many benefits inc luding lowering your blood pressure, improving your cholesterol level, and decreasing your r isk for diseases such as diabetes and heart disease. It may help keep your arteries open so that your heart can get the oxygen-rich blood it needs. All in all, losing weight makes you healthier. Exercise with a friend. When activity is fun, you're more likely to stick with it. Calories and weight loss Calories are the fuel your body girard for energy. You get the calories you need from the food you eat. For healthy weight loss, women should eat at least 1,200 calories a day, men at least 1,500. When you eat more calories than you need, your body stores the extra calories as fat. On e pound of fat equals 3,500 calories. To lose weight, try to reduce your total calorie intake by 500 calories. To do this, eat 250 calories less each day. Add activity to burn the other 250 calories. Walking2.5mile s girard about 250 calories. Other more intense activities can burn more calories in the time you spend doing them, such as swimming and running. It is important to understand that redu cing calorie intake is much more effective at weight loss than is exercise. Eat a variety of healthy foods to get the nutrients you need. Tips for losing weight Drink 8 to 10 glasses of water a day. Don t skip meals. Instead, eat smaller portions. Eat your meals earlier in the day. Cut out sugary drinks such as soda and fruit juices. Make your later meals lead software qa engineer than your earlier meals. Brisk activity is best Brisk activity gets your heart pumping faster and it makes it healthier. It s also a grea t way to burn calories. In fact, your body may keep burning calories for hours after you sto p a brisk activity: Begin by walking 10 minutes most days. Add more time and speed to your walk. Build up as you feel able. Aim for 3 to 4 sessions of aerobic exercise a week. Each session should last about 40 mi nutes and include moderate to vigorous physical activity. The most important part of the activity is that you break a sweat. This indicates your h eart is working hard enough to burn fat. Date Last Reviewed: 07/21/201519994614-8845 [employer]. [address] [place] [address], [place] [address]. All righ ts reserved. This information is not intended as a substitute for professional medical care. Always follow your healthcare professional's instructions. Continue 30 min non-sedentary activity daily. This preserves memory function, reduces disab ility and prolongs lifespan! Follow up in 3 months to consider weight loss medication documented in this encounter Progress Notes Santi Dumont MD - 05/15/2018 1:40 PM PDT CHIEF COMPLAINT Chief Complaint Patient presents with Annual Exam Wellness Exam/Discuss GI issues HPI Patrice Interiano is a 62 y.o. male who presents for annual assessment and preventative healthc are exam He is frustrated by attempts to lose weight, states that he has tried weight watchers off a nd on, loses weight initially then regains it whenever he quits weight watchers. He would l jose alejandro to get his weight below 250. He is not regularly active except for back exercises and stretches. His breathing status h as improved with long-term anticoagulation. He had recurrent unprovoked pulmonary emboli la year, and is now on long-term Eliquis. He ambulates with a cane due to right hip pain, l eft hip much improved after total hip arthroplasty 11 months ago. REVIEW OF SYSTEMS Positive for weight gain, efforts to lose weight. He has normal appetite and endorses fati lesli. He wears eyeglasses, has hearing loss, hearing aids and tinnitus. He has ankle swelli ng, occasional wheezing and shortness of breath, occasional heartburn. He endorses painful back and right hip, has numbness in his feet and weakness in his legs following back surgery . He has mild anxiety symptoms and anhedonia. Remainder of 12-point review of systems negat [place]umb[place]. PAST MEDICAL HISTORY Patient Active Problem List Diagnosis Date Noted Obesity (BMI 35.0-39.9 without comorbidity) 06/07/2017 Preventative health care 02/04/2017 Note Last Updated: 02/04/2017 Last CRCS: 2010; next due 2020 PSA: Acute deep vein thrombosis (DVT) of left lower extremity (HCC) 201612/04/2016 Saddle embolus of pulmonary artery with acute cor pulmonale (HCC) 201612/03/2016 Obstructive sleep apnea with nocturnal hypoxemia 12/01/2016 Note Last Updated: 02/04/201711/2016 overnight oximetry on room air showed O2 saturation 68-97%, 456 minutes with satu rations less than 89% Lumbar radiculopathy 07/19/2016 Lumbar spinal stenosis 07/19/2016 [...] pressure Brother High blood pressure Child No known problems Child Colon cancer Maternal Grandmother Diabetes Sister High blood pressure Sister Other (see comment) Sister High blood pressure Sister SOCIAL HISTORY Social History Social History Marital status: Spouse name: Gely Number of children: 2 Years of education: 12 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 Luna; EdgarMolly COLONOSCOPY Done 2010 EGD 1999 HERNIA REPAIR 08/03/2010 Herniorraphy; Valdez Vang INCISION AND DRAINAGE 2008 Thrombosed hemorrhoid. LUMBAR FUSION 01/2012 Dr. Luna; Molly TONSILLECTOMY AND ADENOIDECTOMY TOTAL HIP ARTHROPLASTY Left 06/07/2017 Procedure: Left Total Hip Arthroplasty; Surgeon: Tay Chand MD; Location: [facility] MA[facility] O R TYMPANOPLASTY TUBES VASECTOMY CURRENT MEDICATIONS Current Outpatient [...] by mouth 2 times daily. 60 tablet 5 gabapentin (NEURONTIN) 300 mg capsule Take 300 mg by mouth as needed. lisinopril-hydrochlorothiazide (PRINZIDE,ZESTORETIC) 20-25 MG per tablet Take 2 tablets by mouth Daily. 60 tablet 11 loratadine (CLARITIN) 10 mg tablet Take 10 mg by mouth Daily. nadolol (CORGARD) 80 MG tablet Take one-half tablet once each day 15 tablet 4 omeprazole (PRILOSEC) 20 mg capsule Take 20 mg by mouth every morning (before breakfast ). potassium chloride 20 mEq CR tablet Take 1 tablet by mouth Daily. 90 tablet 3 pramipexole (MIRAPEX) 0.5 MG tablet Take one tablet by mouth every day 30 tablet 3 sertraline (ZOLOFT) 50 mg tablet TAKE ONE TABLET BY MOUTH EVERY DAY 30 tablet 5 terazosin (HYTRIN) 5 mg capsule Take one capsule by mouth every day 30 capsule 5 tiZANidine (ZANAFLEX) 4 mg tablet Take 1 tablet by mouth every 6 hours as needed for Mu scle spasms. 30 tablet 0 No current facility-administered medications for this visit. ALLERGIES No Known Allergies PHYSICAL EXAM VITAL SIGNS: BP 118/66 | Pulse 86 | Temp 36.8 C (98.2 F) (Tympanic) | Resp 18 | Ht 1.778 m (5' 10") | Wt 119.4 kg (263 lb 3.7 oz) | SpO2 93% | BMI 37.77 kg/m Constitutional: Well developed, obese man in no acute distress, Non-toxic appearance. HENT: Normocephalic, Atraumatic, Bilateral external ears normal, TMs normal with minimal ce rumen bilaterally. Oropharynx moist, No oral exudates, Nose normal. Mildly small airway, d entition in good repair with few absent upper molars. Well healed right cheek scarring. Eyes: PERRLA, EOMI, Conjunctiva normal, No discharge. Fundi benign Neck: No tenderness, Supple, No laryngeal stridor. No thyromegaly or carotid bruit. Lymphatic: No lymphadenopathy noted. Cardiovascular: soft S1 and S2, No murmurs, No rubs, No gallops. JVP not elevated. Thorax & Lungs: Clear to auscultation and percussion, respirations unlabored, No chest tend erness. Abdomen: Bowel sounds normal, Soft, obese , No tenderness, No masses, No hepatosplenomegaly . No aortic bruit. Skin: Warm, Dry, No erythema, No rash. Back: No tenderness, No CVA tenderness. Rectal: Normal appearance, Normal sphincter tone. No external or internal lesions noted. St ool is normal color and heme negative. Prostate smooth, non-enlarged, no nodularity or tende rness. Extremities: Intact distal pulses, No edema, No tenderness, No cyanosis, No clubbing. Musculoskeletal: Good range of motion in all major joints. No tenderness to palpation or ma chloé deformities noted. Neurologic: Alert & oriented x 3, Normal motor function, vibration sensation intact, No foc al deficits noted. Mild intension tremor bilaterally. Psychiatric: Affect normal, Mood normal. IMPRESSION/PLAN 1. Preventative health care Encouraged 30 minutes of activity daily, which patient currently fails to achieve. Tdap va ccine advised and administered today. He has already received conjugated shingles vaccinati on. Colorectal screening due 2020. 2. Essential hypertension Control satisfactory, needs lipid panel check to assess ASCVD risk - Lipid Panel; Future 3. Class 2 severe obesity due to excess calories with serious comorbidity and body mass ind ex (BMI) of 35.0 to 35.9 in adult (HCC) He has comorbidities of obstructive sleep apnea, osteoarthritis, hypertension, hypercholest erolemia and esophageal reflux. Discussed recommendation for referral to bariatric surgery program. We discussed other options, including dietary measures plus exercise, and use of o ther appetite suppressants. Patient could not clearly commit to any one option, and I felt uncomfortable starting him on an appetite suppressant without better understanding. Instruc donell him to follow [facility] guidelines for weight loss, by reducing calorie intake by 250 elmer/day, and scheduling follow-up in 3 months to discuss options again. 4. Right-sided heart failure, unspecified HF chronicity (HCC) Needs follow-up echocardiogram, anticipate improvement following resolution of cor pulmonal e - ECHO Complete; Future RECOMMENDATIONS Follow up Return in about 3 months (around 08/15/2018). I, Santi Dumont MD, personally performed the services described in this documentation as scribed by Maria Teresa Tejeda M.A in my presence, and the documentation is both accurate and com plete. Santi Dumont MD 05/15/2018 documented in this enc ounter Plan of Treatment Not on filedocumented as of this encounter Procedures + +--------+ + + + | Procedure Name | Priori | Date/Time | Associated Diagnosis | Comments | | | ty | | | | + +--------+ + + + | POCT, OCCULT BLOOD, | Routin | 05/15/2018 | Colon cancer | Results for this | | STOOL, FOR | e | 2:47 PM | screening | procedure are in the | | COLORECTAL NEOPLASM | | PDT | | results section. 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 Procedure | | | Type of Study [...] Diastolic: 1.11 cm EF | | | Ouggywgfl94% EF Calculated: 70% Miscellaneous Aorta Aortic Root: [...] Diastolic: 1.11 cm | | | EF Fuswcybjm67% | | | EF Calculated: 70% | [...] ONEILL Room Number Patient Number | | [id number] Date of Study 06/05/2018 Visit Number [id number] | | Referring Physician ELLI Fleming Number Date of | | 1955 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 | | | | | | [facility] | | | | | [facility] - | | | | | | LAB[facility]ATORY | | + +---------+ + + + | Cholesterol | 223 (H) | <=200 mg/dL | [facility] | | | | | | [facility] | | | | | | [facility] | | | | | | [facility] - | | | | | | LAB[facility]ATORY | | + +---------+ + + + | HDL | 36 (L) | 40 - 60 mg/dL | [facility] | | | | | | [facility] | | | | | | [facility] | | | | | | [facility] - | | | | | | LAB[facility]ATORY | | + +---------+ + + + | Chol/HDL | 6.2 | | [facility] | | | Ratio | | | [facility] | | | | | | [facility] | | | | | | [facility] - | | | | | | LABORATORY | | + +---------+ + + + | LDL, | 134 (H) | <=130 mg/dL | [facility] | | | Calculated | | | [facility] | | | | | | [facility] | | | | | | C[facility] - | | | | | | LABORATORY | | + +---------+ + + + + + | Specimen | + + | Blood | + + + + + + + | Performing | Address | City/State/Zipcode | Phone Number | | Organization | | | | + + + + + | [facility] | [address] | [place] | [phone] | | [facility] | | [address] | | | - LABORATORY | | | | + + + + + POCT Occ Bld Stl Colorectal Neoplasm Scr (05/15/2018 2:47 PM PDT) + + + + + + | Component | Value | Ref Range | Performed | Pathologist | | | | | At | Signature | + + + + + + | Occult | Negative | Negative | | | | Blood x1, | | | | | | Stool, POC | | | | | + + + + + + | Occult | | Negative | | | | Blood x2, | | | | | | Stool, POC | | | | | + + + + + + | Occult | | Negative | | | | Blood x3, | | | | | | Stool, POC | | | | | + + + + + + | Occult | Acceptable | | | | | Blood QC | | | | | | Result | | | | | + + + + + + | Card Lot # | [id number] | | | | + + + + + + | Card | 2/21 | | | | | Expiration | | | | | | Date | | | | | + + + + + + | Developer | [id number] | | | | | Lot # | | | | | + + + + + + | Developer | 01/09 | | | | | Expiration | | | | | | Date | | | | | + + + + + + + + | Specimen | + + | Stool | + + documented in this encounter Visit Diagnoses + + | Diagnosis | + + | Preventative health care - Primary Routine general medical examination at a [facility] | | care facility | + + | Essential hypertension Unspecified essential hypertension | + + | Class 2 severe obesity due to excess calories with serious comorbidity and body mass | | index (BMI) of 35.0 to 35.9 in adult (HCC) | + + | Right-sided heart failure, unspecified HF chronicity (HCC) | + + | Need for Tdap vaccination Need for prophylactic vaccination with combined | | sshdyerqvc-zlnjnfv-aqjhryqyh (DTP) vaccine | + + | Colon cancer screening Special screening for malignant neoplasms, colon | + + documented in this encounter
--- OUTSIDE RECORDS SUMMARY | ~2019-11-12 | XMS | Encounter Summary ---
Demographics + + + | Address | [address] | | | [place] [address] | + + + | Home Phone | | + + + | Preferred Language | Unknown | + + + | Marital Status | | + + + | Confucianist Affiliation | Unknown | + + + | Race | White | + + + | Ethnic Group | Not or | + + + Author + + + | Author | [facility] | | | and [place] | + + + | Organization | [facility] | [...] Team Providers + +------+ + | Care District Customs Director Name | Role | Phone | + +------+ + | Santi Dumont MD | PCP | | + +------+ + Reason for Visit + +--------+ + | Reason | Onset | Comments | | | Date | | + +--------+ + | Medical Clearance | 02/16/ | | | | 2017 | | + +--------+ + Encounter Details +--------+ + + + + | Date | Type | Department | Care Team | Description | +--------+ + + + + | 04/06/ | Telephone | [facility] | [place] | Medical Clearance | | 2017 | | ORTHOPEDIC SURGERY | MD [address] [facility] | | | | | [address] [place] | [place] | | | | | [place] | [id number] | | | | | [address] | | | | | | [phone] | | | +--------+ + + + [...] this encounter Miscellaneous Notes Telephone Encounter - Airam Hope Finger Buffs Assembler - 04/06/2017 1:[address] Royal raya a message concerning patients medical clearance before we can schedule his surgery. Elec tronically signed by Airam Hope Finger Buffs Assembler at 04/06/2017 1:08 PM PSTdocumented in this encounter Plan of Treatment Not on filedocumented as of this encounter Visit Diagnoses Not on filedocumented in this encounter"
--- OUTSIDE RECORDS SUMMARY | ~2019-11-12 | XMS | Encounter Summary ---
Demographics + + + | Address | [address] | | | [place] [address] | + + + | Home Phone [...] + + + | Author | [facility] | | | and [place] | + + + | Organization | [facility] | | | [...] Team Providers + +------+ + | Care Visually Impaired Teacher Name | Role | Phone | + +------+ + | Santi Dumont MD | PCP | | + +------+ + Encounter Details +--------+ + + + + | Date | Type | Department | Care Team | Description | +--------+ + + + + | 03/19/ | Episode | [facility] | Cassandra Hernandez CMA | | | 2018 | Changes | ORTHOPEDIC SURGERY | | | | | | [address] [place] | | | | | | [place] | | | | | | [address] | | | | | | [phone] | | | +--------+ + + + [...]
--- OUTSIDE RECORDS SUMMARY | ~2019-11-12 | XMS | Encounter Summary ---
Demographics + + + | Address | [address] | | | [place] [address] | + + + | Home Phone | | + + + | Preferred Language | Unknown | + + + | Marital Status | | + + + | Christianity Affiliation | Unknown | + + + | Race | White | + + + | Ethnic Group | Not or | + + + Author + + + | Author | [facility] | + + + | Organization | [facility] | + + + | Address | Unknown | + + + | Phone | Unavailable | + + + Support + + +---------+ + | Name | Relationship | Address | Phone | + + +---------+ + | Gely Interiano | ECON | Unknown | | + + +---------+ + Care Team Providers + +------+ + | Care Assistant Golf Course Superintendent Name | Role | Phone | + +------+ + | Isaac Miranda MD | PCP | | + +------+ + Encounter Details +--------+ + + + + | Date | Type | Department | Care Team | Description | +--------+ + + + + | 01/15/ | Document-Sc | Health Information | Unknown . | | | 2011 | anned | Services [id number] | | | | | | [address] | | | | | | Mailcode: OP17A | | | | | | [facility] | | | | | | [place], [place] | | | | | | [address] | | | | | | [phone] | | | +--------+ + + + [...] + + + | RADIOLOGY | | 01/16/2012 | | Results for this | | | | 12:00 AM | | procedure are in the | | | | PST | | results section. | + +--------+ + + + documented in this encounter Results RADIOLOGY (01/16/2012 12:00 AM PST) + + + | Narrative | Performed At | + + + | | | + + + documented in this encounter Visit Diagnoses Not on filedocumented in this encounter"
--- OUTSIDE RECORDS SUMMARY | ~2019-11-12 | XMS | Encounter Summary ---
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 | Phone | [...] | | | | | SOB | Dinora | [place] | | | | | (shortness | Jenni, | [place], | | | | | of breath) | [employer] [address] | [place] [address] | | | | | Personal | [address] | Phone: | | | | | history of | [place], | [phone] | | | | | pulmonary | [place] [address] | Fax: | | | | | embolism | Phone: | [phone] | | | | | Personal | [phone] | | | | | | history of | Fax: | | | | | | DVT (deep | [phone] | | | | | | vein [...] | Comments | + + + | Shortness of Breath | Within the last week it has gotten worse | + + + Encounter Details +--------+---------+ + + + | Date | Type | Department | Care Team | Description | +--------+---------+ + + + | 12/07/ | Office | [facility] | Dinora Fatima | SOB (shortness of | | 2018 | Visit | MEDICINE [address] | [address] | breath) (Primary | | | | [address] [place], | [address] | Dx); Personal | | | | [place] [address] | [place] [address] | history of pulmonary | | | | [phone] | [phone] | embolism; Personal | | | | | | history of DVT (deep | | | | | | vein thrombosis); | | | | | | Hypoxemia; Bilateral | | | | | | pulmonary embolism | | | | | | ([facility]) | +--------+---------+ + + + Social History [...] + + + | Blood Pressure | 112/70 | 12/07/2017 1:13 PM | | | | | PDT | | + + + + + | Pulse | 58 | 12/07/2017 1:13 PM | | | | | PDT | | + + + + + | Temperature | 36.9 C (98.4 F) | 12/07/2017 1:13 PM | | | | | PDT | | + + + + + | Respiratory Rate | 20 | 12/07/2017 1:13 PM | | | | | PDT | | + + + + + | Oxygen Saturation | 92% | 12/07/2017 1:13 PM | | | | | PDT | | + + + + + | Inhaled Oxygen | - | - | | | Concentration | | | | + + + + + | Weight | 117.4 kg (258 lb | 12/07/2017 1:13 PM | | | | 13.1 oz) | PDT | | + + + + + | Height | 177.8 cm (5' 10") | 12/07/2017 1:13 PM | | | | | PDT | | + + + + + | Body Mass Index | 37.14 | 12/07/2017 1:13 PM | | | | | PDT | | + + + + + documented in this encounter Progress Notes Dinora Fatima, [employer] - 12/07/2017 1:30 PM PDTI spoke with Dr. Santos who reported that patient has bilateral PE (moderate burden) in the segmental and subsegmental arteries. Patient and were in office, I relayed the information to them. Pt should start antico agulation with apixiban 10mg BID for 7 days, then 5mg BID. Pt given written and verbal inst ructions for apixiban and states that he has a new, full bottle at home from his previous erapy. Prescription refill sent to pharmacy. He will require lifelong anticoagulation given a second, unprovoked VTE. Pt to f/u in 2-3 weeks with either myself for Dr. Dumont. Advised patient to call EMS for any acute changes or declining respiratory status. Patient and agree to plan and were able to correct verbalize apixiban dosing. He will start medication tonight. oodard, Dinora Arteaga APRN - 12/07/2017 1:30 PM PDTFormatting of this note might be diff erent from the original. Subjective: Patrice Interiano is a 62 y.o. male patient of Dr. Dumont accompanied by his here for Short ness of Breath (Within the last week it has gotten worse) He reports at 1 month history of worsening KOEHLER and hypoxemia. He states that he feels like he is having trouble moving air, even with very short periods of activity. When he is sitti ng or laying down, he is able to catch his breath. He has a home O2 saturation monitor and h as had readings as low as 83% with very minimal activity. He sleeps on a 4" incline for FRANCOISE D and symptoms are improved when he lays down. Denies any symptoms at rest. His decided to bring him in for evaluation as she feels that his activity tolerance rivera s significantly declined. Last night he had to rest after helping put sheets on only half th e bed. C/o feeling bloated and feeling like his abdomen is distended. He is better able to catch his breath when he leans backward. He feels like his pants are too tight. His has not noticed any increase in abdominal girth. Denies any swelling in the legs or ankles, no cough, sputum production, wheeze, fever, chil l. He states that this is a different type of SOB than when he had his diagnosis of acute s addle emboli. Outpatient Encounter Prescriptions as of 12/07/2017 Medication Sig Dispense Refill acetaminophen (TYLENOL) 500 mg tablet Take 500 mg by mouth every 6 hours as needed for Pain. [DISCONTINUED] acetaminophen-codeine (TYLENOL #3) 300-30 mg per tablet Take 1 tablet by mouth every 6 hours as needed for Pain. albuterol (PROAIR HFA) 90 mcg/puff inhaler Inhale 2 puffs into the lungs every 6 hours as needed for Wheezing. 6.7 g 3 [DISCONTINUED] ELIQUIS 5 MG tablet Take one tablet by mouth twice daily 60 tablet 3 gabapentin (NEURONTIN) 300 mg capsule Take 1 capsule by mouth 4 times daily. (Patient t aking differently: Take 300 mg by mouth Daily.) 90 capsule lisinopril-hydrochlorothiazide (PRINZIDE,ZESTORETIC) 20-25 MG per tablet Take 2 tablets by mouth Daily. 60 tablet 11 loratadine (CLARITIN) 10 mg tablet Take 10 mg by mouth Daily. nadolol (CORGARD) 80 MG tablet Take 0.5 tablets by mouth Daily. 30 tablet 5 omeprazole (PRILOSEC) 20 mg capsule Take 20 mg by mouth every morning (before breakfast ). potassium chloride (KLOR-CON M20) 20 mEq ER tablet potassium chloride 20 mEq CR tablet Take 1 tablet by mouth Daily. 90 tablet 3 pramipexole (MIRAPEX) 0.5 MG tablet Take 1 tablet by mouth Daily. 90 tablet 3 [DISCONTINUED] Senna 30 MG MISC Take 30 mg by mouth as needed. sertraline (ZOLOFT) 50 mg tablet Take 1 tablet by mouth Daily. 30 tablet 5 terazosin (HYTRIN) 5 mg capsule Take 1 capsule by mouth Daily. 30 capsule 6 tiZANidine (ZANAFLEX) 4 mg tablet Take 1 tablet by mouth every 6 hours as needed for Mu scle spasms. (Patient not taking: Reported on 12/07/2017) 30 tablet 0 No facility-administered encounter medications on file as of 12/07/2017. Allergies No active allergies Intolerance No active intolerances/contraindications Past Medical History: Diagnosis Date Allergic rhinitis Anxiety 1999 Arthralgia of knee Patella, Tibia, Fibula Arthritis 2009 Benign prostatic hyperplasia without urinary obstruction Cervical radiculopathy C3-C7 Cervical spondylosis with myelopathy CHF (congestive heart failure) ([facility]) 11/2016 Clotting disorder ([facility]) 11/2016 Pulmonary embolisms Depression with anxiety GERD (gastroesophageal reflux disease) GI bleed 1999 [employer] [place] (hard of hearing) wears hearing aids Hypertension Left sided sciatica Low back pain Lumbar degenerative disc disease Lumbar facet arthropathy MULTILEVEL Lumbar spondylosis Osteoarthritis, generalized PE (pulmonary thromboembolism) ([facility]) following lumbar spine surgery 2016 Primary localized osteoarthrosis of left hip Restless leg syndrome Smokeless tobacco use Spondylolisthesis of lumbar region Tremor Past Surgical History: Procedure Laterality Date CERVICAL FUSION 06/2011 Dr. Luna; [facility] COLONOSCOPY 2010 EGD 2000 HERNIA REPAIR 08/03/2010 Herniorraphy; [facility] INCISION AND DRAINAGE 2007 Thrombosed hemorrhoid. KNEE ARTHROSCOPY 2014 Dr. Brothers; [facility] LUMBAR FUSION 01/2012 Dr. Luna; [facility] SPINE SURGERY TONSILLECTOMY AND ADENOIDECTOMY TOTAL HIP ARTHROPLASTY Left 06/07/2017 Procedure: Left Total Hip Arthroplasty; Surgeon: Tay Chand MD; Location: [facility] MAIN O R TYMPANOPLASTY TUBES VASECTOMY Family History Problem Relation Age of Onset [...] Sister High blood pressure Sister Social History Social History Marital status: Spouse name: Gely Number of children: 2 Years of education: 12 Occupational History [employer] Disabled 04/2016 Social History Main Topics Smoking status: Never Smoker Smokeless tobacco: Former User Quit date: 02/18/2013 Comment: Never smoked, quit smokeless tobacco Alcohol use No Drug use: No Sexual activity: Yes Partners: Female control/ protection: Yes Comment: Vasectomy Other Topics Concern Not on file Social History Narrative No narrative on file Review of Systems Constitutional: Positive for malaise/fatigue. Negative for chills and fever. Respiratory: Positive for shortness of breath. Negative for cough, hemoptysis, sputum produ ction and wheezing. Cardiovascular: Negative for chest pain, palpitations, orthopnea, leg swelling and PND. Gastrointestinal: Negative for constipation. Genitourinary: No urine changes Neurological: Positive for weakness. Objective: BP 112/70 | Pulse 58 | Temp 36.9 C (98.4 F) (Temporal) | Resp 20 | Ht 1.778 m (5' 1 0") | Wt 117.4 kg (258 lb 13.1 oz) | SpO2 92% | BMI 37.14 kg/m Physical Exam Neck: No JVD present. Cardiovascular: Normal rate, regular rhythm, S1 normal, S2 normal and intact distal pulses. No murmur heard. Pulmonary/Chest: No accessory muscle usage. Tachypnea noted. He has decreased breath sounds in the left upper field. He has no wheezes. He has no rales. Clear to percussion. SaO2 at rest 92%, SaO2 after 50 feet of ambulation 84% Abdominal: Soft. Bowel sounds are normal. He exhibits no fluid wave. There is no tenderness . Adiposity Musculoskeletal: He exhibits no edema. Left calf size 18.8 inches, Right calf size 19 inches Skin: Skin is warm and dry. No erythema. Assessment/Plan: Assessment: 1. SOB (shortness of breath) 2. Personal history of pulmonary embolism 3. Personal history of DVT (deep vein thrombosis) 4. Hypoxemia Plan: - PE clinical probability score 4.5 (moderate pre-test probability for PE) - Discussed case with Dr. Dumont, will obtain stat CTA of the chest to evaluate for PE. Dif ferential also includes acute heart failure though he appears euvolemic and Infectious proc ess. Orders Placed This Encounter Procedures CT Angiogram Chest W Contrast Basic Metabolic Panel Patient understands, accepts, and agrees with this plan. 25 minute visit > 50% counseling regarding the listed conditions, options for treatment, a nd possible risks. Dinora Fatima DNP, [employer], AGNP-C documented in this encounter Miscellaneous Notes Addendum Note - Dinora Fatima APRN - 12/07/2017 1:30 PM PDT Addended by: DINORA REAL RD on: 12/07/2017 17:43 Modules accepted: Orders document ed in this encounter Plan of Treatment Not on filedocumented as of this encounter Results CT Angiogram Pulmonary (12/07/2017 3:56 PM PDT) + + | Specimen | + + | | + + + + + | Narrative | Performed At | + + + | CT ANGIOGRAM PULMONARY 12/07/2017 3:46 PM HISTORY: KOEHLER, | [facility] | | hypoxemia, h/o [...] findings were | | | called to Dinora Fatima. Dictated and Signed by: Sergio Santos | | | Electronically signed: 12/07/2017 5:24 PM [...] | | liver.These findings were called to Dinora Fatima.Dictated and Signed by: Sergio Santos | [...] | | |These findings were called to Dinora Fatima. | | | |Dictated and Signed [...] + + | SOB (shortness of breath) - Primary Shortness of breath | + + | Personal history of pulmonary embolism | + + | Personal history of DVT (deep vein thrombosis) Personal history of venous thrombosis | | and embolism | + + | Hypoxemia | + + | Bilateral pulmonary embolism (HCC) Other pulmonary embolism and infarction | + + documented in this encounter
--- OUTSIDE RECORDS SUMMARY | ~2019-11-12 | XMS | Encounter Summary ---
Demographics + + + | Address | [address] | | | [place] [address] | + + + | Home Phone [...] + + + | Author | [facility] | | | and Brianana | + + + | Organization | [facility] | | | [...] Team Providers + +------+ + | Care Rooming House Operator Name | Role | Phone | + +------+ + | Santi Dumont MD | PCP | | + +------+ + Encounter Details +--------+ + + + + | Date | Type | Department | Care Team | Description | +--------+ + + + + | 04/26/ | Hospital | [facility] | Conversion | Acute saddle | | 2018 | Encounter | [facility] | Transaction, | pulmonary embolism | | | | ECHOCARDIOGRAPHY | Provider Unknown | without acute cor | | | | [address] [facility] | [phone] | pulmonale (HCC); | | | | [place], [place] | | Disorder of right | | | | [address] | [place] | ventricle of heart | | | | [phone] | Joby Burnett MD [address] | | | | | [address] | | | | | | [place] [address] | | | | | | [phone] | | | | | | | [...] +---------+ + + | Blood Pressure | 130/72 | 04/26/2017 3:35 PM | | | | | PST | | + +---------+ + + | Pulse | - | [...] + | ECHO COMPLETE | Routin | 04/26/2017 | | Results for this | | | e | 4:05 PM | | procedure are in the | | | | PST | | results section. | + +--------+ + + + documented in this encounter Results ECHO Complete (04/26/2017 4:05 PM PST) + + | Specimen | + + | | + + + + + | Impressions | Performed At | + + + | 1. Overall left ventricular systolic function is normal with, an EF | | | between 65 - 70 %. 2. The right ventricle is severely enlarged | | | measuring >4.1 cm. 3. The left atrium is normal in size. 4. The | | | right atrium is mildly enlarged. 5. There is no evidence of aortic | | | stenosis. 6. Miby-nw-ywoivqkf mitral regurgitation is present. 7. | | | There is mild pulmonary hypertension. 8. The right ventricular | | | systolic pressure (pulmonary artery systolic pressure), as measured by | | | Doppler, is 36.84mmHg. 9. There is no pericardial effusion. 10. | | | Compared with the findings of the prior study 11/2016, the estimated | | | pulmonary artery pressure has significantly decreased. | | + + + + + + | Narrative | Performed At | + + + | Patient Name: PATRICE INTERIANO Date of : 1955 | | | Performing Physician: Bear Spaulding MD | | | | | | INDICATIONS F/U post pulmonary embolis with RV | | | dysfuntion CONCLUSIONS 1. Overall left ventricular | | | systolic function is normal with, an EF between 65 - 70 %. 2. The | | | right ventricle is severely enlarged measuring >4.1 cm. 3. The left | | | atrium is normal in size. 4. The right atrium is mildly enlarged. 5. | | | There is no evidence of aortic stenosis. 6. Weyx-wt-itaggkwj mitral | | | regurgitation is present. 7. There is mild pulmonary hypertension. | | | 8. The right ventricular systolic pressure (pulmonary artery systolic | | | pressure), as measured by Doppler, is 36.84mmHg. 9. There is no | | | pericardial effusion. 10. Compared with the findings of the prior | | | study 11/2016, the estimated pulmonary artery pressure has | | | significantly decreased. FINDINGS -------- ECG rhythm: Resting | | | bradycardia (HR<60bpm). BP 130/72. Study: A 2-dimensional | | | transthoracic echocardiogram with m-mode, spectral and color flow | | | Doppler was perfomed. Study: This was a technically adequate study. | | | Left Ventricle: Overall left ventricular systolic function is normal | | | with, an EF between 65 - 70 %. Left Ventricle: The left ventricle is | | | mildly dilated. Left Ventricle: Left ventricular wall thickness is | | | normal. Left Ventricle: The diastolic filling pattern is normal for | | | the age of the patient. Right Ventricle: The right ventricle is | | | severely enlarged measuring >4.1 cm. Left Atrium: The left atrium is | | | normal in size. Right Atrium: The right atrium is mildly enlarged. | | | Aortic Valve: The aortic valve is trileaflet and appears structurally | | | normal. Aortic Valve: The aortic valve is mildly calcified. Aortic | | | Valve: There is no evidence of aortic regurgitation. Aortic Valve: | | | There is no evidence of aortic stenosis. Mitral Valve: Normal | | | appearing mitral valve. Mitral Valve: Ryod-ca-gxvdkack mitral | | | regurgitation is present. Mitral Valve: Mild mitral annular | | | calcification present. Tricuspid Valve: The tricuspid valve appears | | | structurally normal. Tricuspid Valve: Ekie-sn-eyzjsrdl tricuspid | | | regurgitation present. Tricuspid Valve: There is mild pulmonary | | | hypertension. Tricuspid Valve: The right ventricular systolic | | | pressure (pulmonary artery systolic pressure), as measured by Doppler, | | | is 36.84mmHg. Pulmonic Valve: Pulmonic valve appears structurally | | | normal. Pulmonic Valve: Trace pulmonic regurgitation. Pericardium: | | | There is no pericardial effusion. IVC/Hepatic Veins: The IVC was not | | | well visualized. Thrombus: No clot visualized General comments: | | | Compared with the findings of the prior study 11/2016, the estimated | | | pulmonary artery pressure has significantly decreased. | | | MEASUREMENTS RA Area: 17.03 cm2 Ao asc: 3.59 cm | | | Ao sinus: 3.[address] junct: 3.12 cm LA Major: 4.95 cm | | | EDV(Teich): 165.52 ml IVSd: 1.14 cm LVIDd: 5.78 cm LVPWd: | | | 0.98 cm LVOT Diam: 2.10 cm %FS: 38.34 % EF(Teich): | | | 67.85 % ESV(Teich): 53.20 ml IVSs: 1.42 cm LVIDs: 3.56 cm | | | LVPWs: 1.67 cm SV(Teich): 112.31 ml RA Major: 5.05 cm | | | RVIDd: 4.20 cm LVEF MOD A4C: 67.28 % SV MOD A4C: 72.13 ml | | | LVEDV MOD A4C: 107.21 ml LVLd A4C: 7.75 cm LVESV MOD A4C: | | | 35.07 ml LVLs A4C: 5.45 cm LAESV(A-L): 61.51 ml LAESV Index | | | (A-L): 26.86 ml/m2 LAAs A2C: 23.33 cm2 LAESV A-L A2C: 85.90 | | | ml LALs A2C: 5.38 cm LAAs A4C: 15.59 cm2 LAESV A-L A4C: | | | 41.10 ml LALs A4C: 5.02 cm Ao Diam: 3.70 cm AV Cusp: 2.34 | | | cm LA Diam: 4.08 cm LA/Ao: 1.1 %FS: 39.31 % EDV(Teich): | | | 157.57 ml EF(Teich): 69.12 % ESV(Teich): 48.65 ml IVSd: | | | 1.13 cm IVSs: 1.75 cm LVIDd: 5.66 cm LVIDs: 3.43 cm | | | LVPWd: 1.05 cm LVPWs: 1.52 cm SV(Teich): 108.92 ml D-E | | | Excursion: 2.73 cm E-F Desoto: 0.07 m/s TAPSE: 2.01 cm HR: | | | 57.03 BPM AV maxP.73 mmHg AV meanP.07 mmHg AV | | | Vmax: 1.63 m/s AV Vmean: 1.18 m/s AV VTI: 35.11 cm TAMI | | | Vmax: 2.43 cm2 TAMI (VTI): 2.22 cm2 AVAI Vmax: 0.00 cm2/m2 | | | AVAI (VTI): 0.00 cm2/m2 LVCI Dopp: 2.08 l/minm2 LVCO Dopp: | | | 4.77 l/min HR: 61.05 BPM LVOT maxP.22 mmHg LVOT meanPG: | | | 2.69 mmHg LVSI Dopp: 34.15 ml/m2 LVSV Dopp: 78.22 ml LVOT | | | Vmax: 1.14 m/s LVOT Vmean: 0.77 m/s LVOT VTI: 22.43 cm | | | MCO: 415.22 ms MR maxP.29 mmHg MR Vmax: 4.93 m/s MV A | | | Vamsi: 0.55 m/s MV DecT: 174.97 ms MV E Vamsi: 0.80 m/s MV | | | E/A Ratio: 1.45 MV PHT: 50.74 ms MVA By PHT: 4.33 cm2 MV A | | | Dur: 134.94 ms Septal e': 0.09 m/s Septal E/e': 8.71 | | | Lateral e': 0.09 m/s Lateral E/e': 8.05 P Vein A: 0.34 m/s | | | P Vein A Dur: 134.94 ms P Vein D: 0.58 m/s P Vein S/D Ratio: | | | 1.01 P Vein S: 0.59 m/s PAEDP: 7.04 mmHg PRend P.04 | | | mmHg PRend Vmax: 0.71 m/s HR: 59.79 BPM PV maxP.66 | | | mmHg PV meanP.67 mmHg PV Vmax: 0.95 m/s PV Vmean: 0.59 | | | m/s PV VTI: 19.50 cm RAP: 5 mmHg RV S': 0.24 m/s RVSP: | | | 36.83 mmHg TR maxP.83 mmHg TR Vmax: 2.82 m/s TV A | | | Vamsi: 0.48 m/s TV Dec Desoto: 2.94 m/s2 TV Dec Time: 261.83 | | | ms TV E Vamsi: 0.77 m/s TV E/A Ratio: 1.58 Roving Sizer: | | | Authenticated by: Bear Spaulding MD Report Date/Time: 04-26-2017 16:57:48 | | | | | + + + + + | Procedure Note | + + | Francois Singh - 10/02/2018 7:35 AM PDT Patient Name: Chaitanya INTERIANO of | | : 1955 Performing Physician: Bear Spaulding | | INDICATIONS F | | /U post pulmonary embolis with RV dysfuntion CONCLUSIONS 1. Overall left | | ventricular systolic function is normal with, an EF between 65 - 70 %.2. The right | | ventricle is severely enlarged measuring >4.1 cm.3. The left atrium is normal in size.4. | | The right atrium is mildly enlarged.5. There is no evidence of aortic stenosis.6. | | Kfio-rd-edpraqfl mitral regurgitation is present.7. There is mild pulmonary | | hypertension.8. The right ventricular systolic pressure (pulmonary artery systolic | | pressure), as measured by Doppler, is 36.84mmHg.9. There is no pericardial effusion.10. | | Compared with the findings of the prior study 11/2016, the estimated pulmonary artery | | pressure has significantly decreased. FINDINGS--------ECG rhythm: Resting bradycardia | | (HR<60bpm). BP 130/72.Study: A 2-dimensional transthoracic echocardiogram with m-mode, | | spectral and color flow Doppler was perfomed.Study: This was a technically adequate | | study.Left Ventricle: Overall left ventricular systolic function is normal with, an EF | | between 65 - 70 %.Left Ventricle: The left ventricle is mildly dilated.Left Ventricle: | | Left ventricular wall thickness is normal.Left Ventricle: The diastolic filling pattern | | is normal for the age of the patient.Right Ventricle: The right ventricle is severely | | enlarged measuring >4.1 cm.Left Atrium: The left atrium is normal in size.Right Atrium: | | The right atrium is mildly enlarged.Aortic Valve: The aortic valve is trileaflet and | | appears structurally normal.Aortic Valve: The aortic valve is mildly calcified.Aortic | | Valve: There is no evidence of aortic regurgitation.Aortic Valve: There is no evidence | | of aortic stenosis.Mitral Valve: Normal appearing mitral valve.Mitral Valve: | | Exik-cz-otvxwzng mitral regurgitation is present.Mitral Valve: Mild mitral annular | | calcification present.Tricuspid Valve: The tricuspid valve appears structurally | | normal.Tricuspid Valve: Wnes-vg-xnzomzwh tricuspid regurgitation present.Tricuspid | | Valve: There is mild pulmonary hypertension.Tricuspid Valve: The right ventricular | | systolic pressure (pulmonary artery systolic pressure), as measured by Doppler, is | | 36.84mmHg.Pulmonic Valve: Pulmonic valve appears structurally normal.Pulmonic Valve: | | Trace pulmonic regurgitation.Pericardium: There is no pericardial effusion.IVC/Hepatic | | Veins: The IVC was not well visualized.Thrombus: No clot visualizedGeneral comments: | | Compared with the findings of the prior study 11/2016, the estimated pulmonary artery | | pressure has significantly decreased. MEASUREMENTS RA Area: 17.03 cm2Ao | | asc: 3.59 cmAo sinus: 3.[address] junct: 3.12 cmLA Major: 4.95 cmEDV(Teich): | | 165.52 mlIVSd: 1.14 cmLVIDd: 5.78 cmLVPWd: 0.98 cmLVOT Diam: 2.10 cm%FS: 38.34 | | %EF(Teich): 67.85 %ESV(Teich): 53.20 mlIVSs: 1.42 cmLVIDs: 3.56 cmLVPWs: 1.67 | | cmSV(Teich): 112.31 mlRA Major: 5.05 cmRVIDd: 4.20 cmLVEF MOD A4C: 67.28 %SV | | MOD A4C: 72.13 mlLVEDV MOD A4C: 107.21 mlLVLd A4C: 7.75 cmLVESV MOD A4C: 35.07 | | mlLVLs A4C: 5.45 cmLAESV(A-L): 61.51 mlLAESV Index (A-L): 26.86 ml/m2LAAs A2C: | | 23.33 [id number] A-L A2C: 85.90 mlLALs A2C: 5.38 cmLAAs A4C: 15.59 [id number] A-L A4C: | | 41.10 mlLALs A4C: 5.02 cmAo Diam: 3.70 cmAV Cusp: 2.34 cmLA Diam: 4.08 | | cmLA/Ao: 1.1%FS: 39.31 %EDV(Teich): 157.57 mlEF(Teich): 69.12 %ESV(Teich): | | 48.65 mlIVSd: 1.13 cmIVSs: 1.75 cmLVIDd: 5.66 cmLVIDs: 3.43 cmLVPWd: 1.05 | | cmLVPWs: 1.52 cmSV(Teich): 108.92 mlD-E Excursion: 2.73 cmE-F Desoto: 0.07 | | m/sTAPSE: 2.01 cmHR: 57.03 BPMAV maxP.73 mmHgAV meanP.07 mmHgAV Vmax: | | 1.63 m/Lela Vmean: 1.18 m/Lela VTI: 35.11 cmAVA Vmax: 2.43 cm2AVA (VTI): 2.22 | | [id number] Vmax: 0.00 cm2/m2AVAI (VTI): 0.00 cm2/m2LVCI Dopp: 2.08 l/grtb2CWHV Dopp: | | 4.77 l/minHR: 61.05 BPMLVOT maxP.22 mmHgLVOT meanP.69 mmHgLVSI Dopp: | | 34.15 ml/m2LVSV Dopp: 78.22 mlLVOT Vmax: 1.14 m/sLVOT Vmean: 0.77 m/sLVOT VTI: | | 22.43 cmMCO: 415.22 msMR maxP.29 mmHgMR Vmax: 4.93 m/sMV A Vamsi: 0.55 m/sMV | | DecT: 174.97 msMV E Vamsi: 0.80 m/sMV E/A Ratio: 1.45MV PHT: 50.74 msMVA By PHT: | | 4.33 cm2MV A Dur: 134.94 msSeptal e': 0.09 m/sSeptal E/e': 8.71Lateral e': 0.09 | | m/sLateral E/e': 8.05P Vein A: 0.34 m/sP Vein A Dur: 134.94 msP Vein D: 0.58 | | m/sP Vein S/D Ratio: 1.01P Vein S: 0.59 m/sPAEDP: 7.04 mmHgPRend P.04 | | mmHgPRend Vmax: 0.71 m/sHR: 59.79 BPMPV maxP.66 mmHgPV meanP.67 mmHgPV | | Vmax: 0.95 m/sPV Vmean: 0.59 m/sPV VTI: 19.50 cmRAP: 5 mmHgRV S': 0.24 | | m/sRVSP: 36.83 mmHgTR maxP.83 mmHgTR Vmax: 2.82 m/sTV A Vamsi: 0.48 m/sTV Dec | | Desoto: 2.94 m/s2TV Dec Time: 261.83 msTV E Vamsi: 0.77 m/sTV E/A Ratio: 1.58 | | Roving Sizer: ASAuthenticated by: Bear Jacobs Date/Time: 04-26-2017 16:57:48 | | IMPRESSION: 1. Overall left ventricular systolic function is normal with, an EF between | | 65 - 70 %.2. The right ventricle is severely enlarged measuring >4.1 cm.3. The left | | atrium is normal in size.4. The right atrium is mildly enlarged.5. There is no evidence | | of aortic stenosis.6. Cenc-gn-naoctywx mitral regurgitation is present.7. There is mild | | pulmonary hypertension.8. The right ventricular systolic pressure (pulmonary artery | | systolic pressure), as measured by Doppler, is 36.84mmHg.9. There is no pericardial | | effusion.10. Compared with the findings of the prior study 11/2016, the estimated | | pulmonary artery pressure has significantly decreased. | |%FS: 38.34 % | |EF(Teich): 67.85 % | |ESV(Teich): 53.20 ml | |IVSs: 1.42 cm | |LVIDs: 3.56 cm | |LVPWs: 1.67 cm | |SV(Teich): 112.31 ml | |RA Major: 5.05 cm | |RVIDd: 4.20 cm | |LVEF MOD A4C: 67.28 % | |SV MOD A4C: 72.13 ml | |LVEDV MOD A4C: 107.21 ml | |LVLd A4C: 7.75 cm | |LVESV MOD A4C: 35.07 ml | |LVLs A4C: 5.45 cm | |LAESV(A-L): 61.51 ml | |LAESV Index (A-L): 26.86 ml/m2 | |LAAs A2C: 23.33 cm2 | |LAESV A-L A2C: 85.90 ml | |LALs A2C: 5.38 cm | |LAAs A4C: 15.59 cm2 | |LAESV A-L A4C: 41.10 ml | |LALs A4C: 5.02 cm | |Ao Diam: 3.70 cm | |AV Cusp: 2.34 cm | |LA Diam: 4.08 cm | |LA/Ao: 1.1 | |%FS: 39.31 % | |EDV(Teich): 157.57 ml | |EF(Teich): 69.12 % | |ESV(Teich): 48.65 ml | |IVSd: 1.13 cm | |IVSs: 1.75 cm | |LVIDd: 5.66 cm | |LVIDs: 3.43 cm | |LVPWd: 1.05 cm | |LVPWs: 1.52 cm | |SV(Teich): 108.92 ml | |D-E Excursion: 2.73 cm | |E-F Desoto: 0.07 m/s | |TAPSE: 2.01 cm | |HR: 57.03 BPM | |AV maxP.73 mmHg | |AV meanP.07 mmHg | |AV Vmax: 1.63 m/s | |AV Vmean: 1.18 m/s | |AV VTI: 35.11 cm | |TAMI Vmax: 2.43 cm2 | |TAMI (VTI): 2.22 cm2 | |AVAI Vmax: 0.00 cm2/m2 | |AVAI (VTI): 0.00 cm2/m2 | |LVCI Dopp: 2.08 l/minm2 | |LVCO Dopp: 4.77 l/min | |HR: 61.05 BPM | |LVOT maxP.22 mmHg | |LVOT meanP.69 mmHg | |LVSI Dopp: 34.15 ml/m2 | |LVSV Dopp: 78.22 ml | |LVOT Vmax: 1.14 m/s | |LVOT Vmean: 0.77 m/s | |LVOT VTI: 22.43 cm | |MCO: 415.22 ms | |MR maxP.29 mmHg | |MR Vmax: 4.93 m/s | |MV A Vamsi: 0.55 m/s | |MV DecT: 174.97 ms | |MV E Vamsi: 0.80 m/s | |MV E/A Ratio: 1.45 | |MV PHT: 50.74 ms | |MVA By PHT: 4.33 cm2 | |MV A Dur: 134.94 ms | |Septal e': 0.09 m/s | |Septal E/e': 8.71 | |Lateral e': 0.09 m/s | |Lateral E/e': 8.05 | |P Vein A: 0.34 m/s | |P Vein A Dur: 134.94 ms | |P Vein D: 0.58 m/s | |P Vein S/D Ratio: 1.01 | |P Vein S: 0.59 m/s | |PAEDP: 7.04 mmHg | |PRend P.04 mmHg | |PRend Vmax: 0.71 m/s | |HR: 59.79 BPM | |PV maxP.66 mmHg | |PV meanP.67 mmHg | |PV Vmax: 0.95 m/s | |PV Vmean: 0.59 m/s | |PV VTI: 19.50 cm | |RAP: 5 mmHg | |RV S': 0.24 m/s | |RVSP: 36.83 mmHg | |TR maxP.83 mmHg | |TR Vmax: 2.82 m/s | |TV A Vamsi: 0.48 m/s | |TV Dec Desoto: 2.94 m/s2 | |TV Dec Time: 261.83 ms | |TV E Vamsi: 0.77 m/s | |TV E/A Ratio: 1.58 | | | |Roving Sizer: | |Authenticated by: Bear Spaulding MD | |Report Date/Time: 04-26-2017 16:57:48 | | | |IMPRESSION: | |1. Overall left ventricular systolic function is normal with, an EF between 65 - 70 %. | |2. The right ventricle is severely enlarged measuring >4.1 cm. | |3. The left atrium is normal in size. | |4. The right atrium is mildly enlarged. | |5. There is no evidence of aortic stenosis. | |6. Blac-gj-twhkcghj mitral regurgitation is present. | |7. There is mild pulmonary hypertension. | |8. The right ventricular systolic pressure (pulmonary artery systolic pressure), as measure d by Doppler, is 36.84mmHg. | |9. There is no pericardial effusion. | |10. Compared with the findings of the prior study 11/2016, the estimated pulmonary artery p ressure has significantly decreased. | + + documented in this encounter Visit Diagnoses + + | Diagnosis | + + | Acute saddle pulmonary embolism without acute cor pulmonale (HCC) | + + | Disorder of right ventricle of heart | + + documented in this encounter"
--- OUTSIDE RECORDS SUMMARY | ~2019-11-12 | XMS | Encounter Summary ---
Demographics + + + | Address | [address] | | | [place] [address] | + + + | Home Phone | | + + + | Preferred Language | Unknown | + + + | Marital Status | | + + + | [employer] Affiliation | Unknown | + + + | Race | White | + + + | Ethnic Group | Not or | + + + Author + + + | Author | [facility] | | | and [place]ana | + + + | Organization | [facility] | | [...] Team Providers + +------+ + | Care Respiratory Care Specialist Name | Role | Phone | + +------+ + | Santi Dumont MD | PCP | | + +------+ + Reason for Visit +--------+--------+ + | Reason | Onset | Comments | | | Date | | +--------+--------+ + | Edema | 08/24/ | | | | 2020 | | +--------+--------+ + Encounter Details +--------+ + + + + | Date | Type | Department | Care Team | Description | +--------+ + + + + | 08/24/ | Telephone | [facility] | Santi Dumont MD | Edema | | 2020 | | [address] | [address] [place] [address] | | | | | [facility], | [place], [place] | | | | | [place] [phone] | [address] | | | | | [phone] | | | +--------+ + + + [...] this encounter Miscellaneous Notes Telephone Encounter - Grazyna Verdugo RN - 08/25/2019 12:33 PM PDTSpoke to . She says patient had hip replacement surgery on 08/13/19. She says Dr Chand has some concerns regar ding water retention of feet and ankles. was notified to please have patient seen in Urgent care today. elephone Encounter - Beryl Lee - 08/25/2019 12:15 PM PDTPatients called stating that patient just saw Dr. Chand and was told to contact patient's PCP office for medication changes. Patient would like to talk to the nurse about patients Hydrochlorothiazide. She states that patient is having water retention in the ankles and feet. documented in this encounter Plan of Treatment Not on filedocumented as of this encounter Visit Diagnoses Not on filedocumented in this encounter"
--- OUTSIDE RECORDS SUMMARY | ~2019-11-12 | XMS | Encounter Summary ---
Demographics + + + | Address | [address] | | | [place] [address] | + + + | Home Phone [...] Team Providers + +------+ + | Care Truck Service Manager Name | Role | Phone | + +------+ + | Santi Dumont MD | PCP | | + +------+ + Encounter Details +--------+ + + + + | Date | Type | Department | Care Team | Description | +--------+ + + + + | 05/09/ | Orders Only | [facility] | Tiesha Pérez MD | | | 2018 | | SLEEP DISORDER [address] | [address] | | | | | [address] [place] | [place], [place] | | | | | [place] [address] | [address] | | | | | [phone] | | | +--------+ + + + [...]
--- OUTSIDE RECORDS SUMMARY | ~2019-11-12 | XMS | Encounter Summary ---
Demographics + + + | Address | [address] | | | [place] [address] | + + + | Home Phone [...] Team Providers + +------+ + | Care Electric Motor Winder Name | Role | Phone | + +------+ + | Isaac Miranda MD | PCP | | + +------+ + Encounter Details +--------+ + + + + | Date | Type | Department | Care Team | Description | +--------+ + + + + | 12/03/ | Hospital | [facility] | Conversion | Pain | | 2017 | Encounter | CONVERSION [address] | Transaction, | | | | | [address] | Provider Unknown | | | | | [place], [place] | [phone] | | | | | [id number] | | | | | | [phone] | | | +--------+ + + + [...] for this | | | e | 7:37 PM | | procedure are in the | | | | PDT | | results section. | + +--------+ + + + documented in this encounter Results XR Chest 2 Vws (12/03/2016 7:37 PM PDT) + + | Specimen | [...]
--- OUTSIDE RECORDS SUMMARY | ~2019-11-12 | XMS | Encounter Summary ---
Demographics + + + | Address | [address] | | | [place] [address] | + + + | Home Phone | | + + + | Preferred Language | Unknown | + + + | Marital Status | | + + + | Tenriism Affiliation | Unknown | + + + [...] Team Providers + +------+ + | Care Ink Jet Operator Name | Role | Phone | + +------+ + | Isaac Miranda MD | PCP | | + +------+ + Encounter Details +--------+ + + + + | Date | Type | Department | Care Team | Description | +--------+ + + + + | 02/13/ | Hospital | [facility] | Mahendra Luna MD | | | 2011 - | Encounter | MED CTR SURGICAL | [address] | | | | | [address] | [place] [address] | | | 02/15/ | | [place] [address] | [phone] | | | 2011 | | [phone] | | | +--------+ + + + [...] documented as of this encounter Miscellaneous Notes Op Note - Mahendra Luna MD - 02/14/2012 5:56 [place] [address] Patient Name: PATRICE INTERIANO Provider: Mahendra Luna MD Unit #: [id number] Location: [address] [place] [address] #: [id number] : 1955 DATE: 02/14/2012 PREOPERATIVE DIAGNOSES 1. Lumbar spondylolisthesis, L4-5, L5-S1. 2. Lumbar radiculopathy, L4, L5, S1, right greater than left. 3. Severe lumbar facet arth ropathy, L4-5, L5-S1. 4. Severe lumbar degenerative disk disease, L4-5, L5-S1. POSTOPERATIVE DIAGNOSES 1. LUMBAR SPONDYLOLISTHESIS, L4-5, L5-S1. 2. LUMBAR RADICULOPATHY, L4, L5, S1, right greater than left. 3. SEVERE LUMBAR FACET ARTHROPATHY, L4-5, L5-S1. 4. SEVERE LUMBAR DEGENERATIVE DISK DISEASE, L4-5, L5-S1. PROCEDURES 1. Combined posterior interbody and posterolateral lumbar arthrodesis, L4-5 and L5-S1. 2. Posterior spinal instrumentation, L4, L5, S1, using [employer] Legacy Osteogrip screws and TipRanks percutaneous system. 3. Placement of PEEK interbody spacer, L4-5, L5-S1, using [employer] Capstone control and [employer] dtronic Capstone. 4. L4 laminectomy, L5 laminectomy, S1 laminotomy, L4 facetectomy on the right, L5 facetecto my on the right, S1 facetectomy on the right for decompression of L4, L5, and S1 nerve root s. 5. Microsurgical technique with use of operating microscope. ATTENDING: Mahendra Luna MD SURGICAL FORCEPS FABRICATOR: GERALD Yi ANESTHESIA: General, performed by Dr. Montana ESTIMATED BLOOD LOSS: 507 mL COMPLICATIONS: There were no intraoperative complications. INTRAOPERATIVE FINDINGS: The bone was extremely hard. His disks were markedly degenerated a nd height was restored at both segments. His listhesis was improved at both segments. Facet arthropathy was very severe at both levels. DRAINS: One drain was placed in the subfascial space on the right side. OPERATIVE DETAILS: After obtaining consent, the patient was taken to the operating room and placed under general anesthesia. He was then positioned in the prone position on the Jacks on axis table with his face, neck, chest, and extremities padded appropriately. His back wa s prepped and draped in standard fashion and a timeout was performed. All members of the rios rgical team agreed with the timeout. The patient's back was then incised along 2 paramedian lines over the L4, L5, and S1 levels, opening two 3-cm incisions, 3.75 cm off the midline bilaterally. Subcutaneous tissues were made hemostatic with Bovie cautery. QUENTIN needles were then guided into the pedicles of L4, L5, and S1 using AP fluoroscopic guidance. The pedicl es were entered in the lateral aspect of the pedicle and tapped anteromedially until they r eached the medial border of the pedicle on AP fluoroscopy. Lateral x-rays were then used to confirm that there were no breaches and that the vertebral bodies had been reached. Bone m arrow was harvested from the vertebral bodies of L4, L5, and S1 and placed on the fusion pr oducts for later arthrodesis. Wires were then inserted down each QUENTIN needle and the QUENTIN need les were removed. It should be noted that the bone was extremely hard and one of the pedicl es at L4 on the right side required drilling with a stainless steel wire in order to gain a ccess to the vertebral body. The wires were hemostated to the drape, and then the posterola teral arthrodesis was performed on the patient's left side. METRx tubes were used to dilate the tissues and expose the lamina of L4, L5, and S1. The facets were also exposed at L4-5 and L5-S1. This was done under direct visualization and with Bovie cautery. A high-speed dr ill was then used to decorticate the exposed lamina and facets, decorticating the bone from L4 through the L4-L5 facet and down into the L5 lamina, and from the L5 lamina to the L5-S 1 facet down to the S1 lamina. Morselized local bone autograft, bone marrow aspirate , Rain ton bone and Mastergraft were then used for a posterolateral arthrodesis and packed over the exposed, decorticated bone. The retractors were then removed and then the wires, which wer e previously placed here, were used for placement of instrumentation. The pedicles were tap ped with a 6.5 mm tap at L4, L5, and S1, followed by placement of a 7.5 x 50 mm screw at L4 on the left side, a 7.5 x 45 mm screw at L5 on the left side, and a 7.5 x 40 mm screw at S 1 on the left side. Good bony purchase was obtained using Osteogrip Legacy screws. The Long itude towers were left connected to the screws and then through a small stab incision super iorly an 80-mm lynn was passed through the tissues after bending it into the appropriate con firmation. The reduction mechanism was then used to reduce the lynn and this improved the ov erall appearance of the listhesis at L4-5. It did remain at L5-S1. The towers and lnyn passe rs were left in place. The planned TLIF approach at L4-5 and L5-S1 was performed from the patient's right side. U sing METRx tubes, the tissues were again dilated, this time on the right side, docking a 6c m x 26 mm tube on the patient's L5-S1 segment. Bovie cautery was used to expose the lamina here as well as the L5-S1 facet, which was markedly hypertrophic. A high-speed drill was th en used to undercut the spinous process, drilling across the midline, and then drilling acr oss on the ipsilateral side across the pars. This allowed for en bloc removal of the L5 bailon tena and the L5 inferior facet on the right. The S1 facet could then be seen and was severel y hypertrophic. It was removed by drilling through its base and then removing the fragment from the foramen with a Kerrison and pituitary rongeur. The more medial aspect of this face t and the superior aspect of the S1 lamina was then removed with a Kerrison rongeur. This completed the plmx-ds-rtsg decompression from L5-S1 and alllowed decompression of the L5 and S1 roots and the canal more centrally. The ligamentum was then taken down with a hook, re vealing the underlying dura centrally. The exiting L5 nerve root could be seen as well as t he L5-S1 disk space. It was markedly collapsed. The disk was incised with a knife but could not be cut in a box-shape fashion because of how collapsed it was. A small pituitary ronge ur was used to widen this area and then a Kerrison rongeur was used to remove some osteophy emelia present and projecting posteriorly, and over the edges of the disk space. This allowed for access to this disk space with the first dilator and a 6 was inserted. The 6 mm space w as held in place and held open by placing set screws on the contralateral hardware and tigh tening them. The disk could then be prepared by removing cartilaginous material from the en dplates with a curette and removing the disk from the disk space with pituitary rongeurs. Th is process continued until the endplates were prepared for arthrodesis. Trials were then us ed and an 8, 9 , and 10 mm trial were sized. The 10 was too large and as such, a 9 mm PEEK spacer was planned. A 9 mm PEEK Capstone spacer was filled with 0.7 mg of BMP, morselized l ocal bone autograft, and Crawley bone with bone marrow aspirate. The interspace was packed with morselized local bone autograft, Crawley bone , and Mastergraft with bone marrow aspir ate. The PEEK spacer was then tamped into this segment, restoring the disk height significa ntly from where it started. The supervisor computer operations was then removed and additional bony materials wer e packed lateral to the PEEK spacer on the right side. FloSeal was then used for hemostasis , which was then irrigated out. The tubular retractor was removed here and hemostasis was o btained fully along this tract with bipolar cautery. The METRx tubes were then used to dilate the tissues at the L4-5 segment performing similar dilatation that had been done at L5-S1. The lamina and facet was again exposed and again n oted to be severely hypertrophic. High-speed drill was used to undercut the spinous process , drilling the lamina off bilaterally and then drilling across the ipsilateral pars. This a llowed for an en bloc removal of the L4 lamina and L4 inferior facet. The L5 superior facet could then be seen and was taken down by drilling across its base. It was very hypertrophi c and very large, extending very lateral. A Kerrison rongeur was used to remove it in multi ple bites until the foramen was fully decompressed. The microhook was then used to take frankie n the ligamentum under microsurgical visualization with the microscope and revealed the und erlying dura centrally. This work allowed for decompression of the L4 and L5 nerve roots a nd the canal centrally. The ligamentum was taken down inferiorly until it was no longer pr esent and then the L4 nerve root was located as it exited this segment more laterally. The disk space could also be seen here. The disk was removed by incising it again. This time the disk was markedly calcified. The disk could only be incised in the superior aspect and a p ituitary rongeur was again used to widen the opening. A Kerrison rongeur was used to remove the calcified disk and osteophytes overgrowing the segment. The disk space could then be m ore easily accessed and was dilated with an 8 mm dilator and the endplates were curetted wi th an 8 mm rotating shaver. A 9 mm trial was then inserted at this level, followed by a 10 mm. The 10 mm was determined to be the appropriate size for the planned graft. The disk spa ce itself was prepared further by using curettes to remove any remaining cartilage and usin g pituitary rongeurs to remove any remaining disk. This process continued until the segment was prepared for arthrodesis. The PEEK Capstone control spacer was then filled with 0.7 mg of BMP, morselized local bone autograft, and Crawley bone. The interspace was packed with morselized local bone autograft, Crawley bone, Mastergraft, and bone marrow aspirate. The PE EK spacer was then tamped into the interspace and rotated in appropriate position. Its loca tion was confirmed on AP and lateral fluoroscopy. The supervisor computer operations was then removed and then ad ditional bony materials were packed on the right side, lateral to the spacer. FloSeal was t hen used for hemostasis and then the FloSeal was irrigated out. Hemostasis was then obtaine d along the course of the tubular retractor. The set screws were then removed that had been used to maintain distraction on the left side and then the previously placed wires were us ed to pass the pedicle screws on the right side. Tapping of the pedicles was again performe d with a 6.5 mm tap followed by placement of a 7.5 x 50 mm screw at L4 on the right side, a 7.5 x 40 mm screw at L5 on the right side, and a 7.5 x 35 mm screw at S1 on the right side . Again, Legacy Osteogrip screws were used, and Longitude towers were left connected to the screws. Through a small stab incision, a 7 mm lynn was bent in appropriate alignment and was then passed through the tissues and passed through all 3 screw heads as it had on the left side. The reduction mechanism was then used to reduce the spondylolisthesis and reduce the lynn at both segments. Set screws were then inserted and broken off with counter torque for lina applied. The Longitude hardware was then removed, leaving behind the rods and screws in appropriate position and with improved disk height and alignment. The wound was then copio usly irrigated and then a drain was used to drain the subfascial space on the patient's rig ht side overlying the nerves. The fascia was then closed with a layer of 0 Vicryl sutures a nd the inferior incisions followed by closure of the skin with a layer of 2-0 and 3-0 Vicry l sutures. Vicryl 3-0 sutures were used to close the small stab incisions that were used fo r lynn passing. Ten mL of 0.5% Marcaine with epinephrine was infiltrated on each side of the body at each inferior wound site, and then Dermabond was used for final skin closure. The wound was dressed with Band-Aids. The drain was sewn in place and also dressed with a Band-A id. All counts were reported as correct. The patient tolerated the procedure and was transf erred to the recovery room in stable condition. DICTATED BY: Mahendra Luna MD Neurological Surgery JOB #: [id number] EXT JOB #:[id number] <<Signature on File>> Mahendra Luna MD01/20 < documented in this enc ounter Plan of Treatment Not on filedocumented as of this encounter Procedures + +--------+ + + + | Procedure Name | Priori | Date/Time | Associated Diagnosis | Comments | | | ty | | | | + +--------+ + + + | XR LUMBAR SPINE 2 OR | Routin | 02/15/2012 | | Results for this | | 3 VW | e | 5:05 PM | | procedure are in the | | | | PST | | results section. | + +--------+ + + + documented in this encounter Results XR Lumbar Spine 2 or 3 Vw (02/15/2012 5:05 PM PST) + + | Specimen | + + | | + + + + + | Narrative | Performed At | + + + | [facility] | [place] | | Department [address] [facility], [place] | [facility] | | [ rep [address]] [ rep [facility] | | st zip] Signed | - IMAGING | | | | | Patient Name: MADONNAJORGEPATRICE Z Physician: | | | ZULEYMA. : 1955 Age: 56 Sex: M Unit #: [id number] | | | Exam Date: 02/15/12 Location: [address] [place] [address] | | | Report #: [id number] Page: | | | %(RAD)RES..mtdd.print.filter("pg") of %(RAD) | | | RES..mtdd.print.filter("tpg") | | | | | | Accession Number: [id number] | | | LUMBAR SPINE LIMITED X-RAY CLINICAL HISTORY: POSTOP | | | LUMBAR FUSION. COMPARISON: 06/01/2011 | | | FINDINGS: Interval placement of pedicle screws with vertical fusion | | | rods is seen at the levels of L4- L5-S1, with interbody disk spacers | | | seen at intervening levels. There is no evidence of complication. | | | Dextroconvex lumbar scoliosis is again seen, centered at L2-3. | | | Vertebral body height and alignment appear otherwise maintained. | | | There is diffuse degenerative disk disease at the remaining levels. | | | The visualized portions of the pelvis are unremarkable. | | | IMPRESSION: 1. STATUS POST LUMBAR SPINAL FUSION DESCRIBED | | | ABOVE, WITHOUT EVIDENCE OF COMPLICATION. Dictated | | | Date/Time: 02/15/2012 17:05 Transcribed Date/Time: 02/15/2012 | | | 17:14 Cadastral Engineer: EdgarTAHIRA <<Signature | | | on File>> | | | Mahendra | | | Bernadette Hartman MD02/17/12 [id number] <Electronically signed by Mahendra Fleming | | | Minnie SNOW> Mahendra Hartman MD 02/15/12 6450 | | | Cadastral Engineer: [employer] [id number]/27/12 3058 | | | Mahendra Luna MD | | + + + + + + + + | Performing | Address | City/State/Zipcode | Phone Number | | Organization | | | | + + + + + | [facility] | [address] | [place] | [phone] | | [facility] | | [address] | | | - IMAGING | | | | + + + + + documented in this encounter Visit Diagnoses Not on filedocumented in this encounter
--- OUTSIDE RECORDS SUMMARY | ~2019-11-12 | XMS | Encounter Summary ---
Demographics + + + | Address | [address] | | | [place] [address] | + + + | Home Phone [...] Team Providers + +------+ + | Care Instrument Maker And Repairer Name | Role | Phone | + +------+ + | Santi Dumont MD | PCP | | + +------+ + Reason for Referral Evaluate & Treat (Urgent) +--------+ + + + + + | Status | Reason | Specialty | Diagnoses / | Referred By | Referred To | | | | | Procedures | Contact | Contact | +--------+ + + + + + | Closed | Specialty | Orthopedic | Diagnoses | [facility], | [place] | | | Services | Surgery | Primary | Santi Fleming MD | CLINIC | | | Required | | osteoarthrit | [address] | ORTHOPEDIC | | | | | is of left | [address]RE[address] | [address] | | | | | hip | [place], | [place] | | | | | | [place] [address] | [place], [place] | | | | | | Phone: | [phone] | | | | | | [phone] | Phone: | | | | | | Fax: | [phone] | | | | | | [phone] | Fax: | | | | | | | [phone] | +--------+ + + + + + Reason for Visit + +--------+ + | Reason | Onset | Comments | | | Date | | + +--------+ + | Hip Pain | 05/03/ | | | | 2018 | | + +--------+ + Encounter Details +--------+ + + + + | Date | Type | Department | Care Team | Description | +--------+ + + + + | 05/03/ | Telephone | [facility] | Santi Dumont MD | Hip Pain | | 2018 | | MEDICINE [address] | [address] [facility] | | | | | [address] [place], | [place] | | | | | [place] [address] | [id number] | | | | | [phone] | | | +--------+ + + + [...] Telephone Encounter - Magdalene Roper RN - 05/07/2017 3:17 PM [facility] called back. Dr. Chand can see patient urgently in the next week or so and can to surgery for hip replac ement on 06/07. They will be contacting patient for appt scheduling. elephone Encounter - Carmel Roper RN - 05/07/2017 9:59 AM [facility]alled [facility] and spoke with Rachel. She states they did not receive referral. Refaxed referral and records. She will check with Dr. Chand to s if he can see this patient urgently. elephone Encounter - Santi Dumont MD - 05/03/2017 1:31 PM PDTo ne call to patient's spouse. Patient has completed 5 months of anticoagulation with Eliquis following pulmonary embolism. D-dimer is currently normal, thus suggesting no residual alejandro t. He can discontinue Eliquis at this time, in preparation for total hip replacement. Dr. Conway and his PA are unavailable through the end of the month. Will check to see i f Dr. Chand can see him on a more urgent basis for total hip replacement. Discussed alternatives for analgesia, patient does not like to use opioids, and even has so me opioids on hand from his prior back surgery. He has been advised not to take nonsteroida l anti-inflammatories for one year following back fusion which will be until October 2017. For the time being, he will continue to use Tylenol for pain relief. elephone Encounter - Magdalene Roper RN - 05/03/2017 9:45 AM PDTSpouse Zeina called. Patrice is in extreme pain and has very limit ed mobility. Using a wheelchair if he has to leave the house. Not sleeping because of pain . They don't feel he can wait until 06/03 (see MD note below) for surgery. Wants to know i f this can get expedited to have surgery sooner. She states he may need to go into facility if he has to wait that long. Dr. Dumont phone note from 04/24: Phone call to patient, after 5 months of anticoagulation treatment for pulmonary embolism, d-dimer is in the normal range. Advised patient to complete full 6 months of warfarin thera py before discontinuing anticoagulation. Patient is stable for orthopedic surgery after June 03. He has follow-up with his pulmono logist with echocardiogram prior to that time. Patrice does have an appt with 05/11. Zeina will be contacting the ortho office as we ll. Phone for Zeina [phone].Electronically signed by Magdalene Roper RN at 9:51 AM PDTdocumented in this encounter Plan of Treatment + + +--------+ + + | Name | Type | Priori | Associated Diagnoses | Order Schedule | | | | ty | | | + + +--------+ + + | [facility] | Outpatient | [facility] | Primary | Ordered: 05/03/2017 | | Clinic Orthopedic - | Referral | | osteoarthritis of | | | AMB Referral | | | left hip | | + + +--------+ + + documented as of this encounter Visit Diagnoses + + | Diagnosis | + + | Primary osteoarthritis of left hip - Primary Primary localized osteoarthrosis, pelvic | | region and thigh | + + documented in this encounter"
--- OUTSIDE RECORDS SUMMARY | ~2019-11-12 | XMS | Encounter Summary ---
Demographics + + + | Address | [address] | | | [place] [address] | + + + | Home Phone | | + + + | Preferred Language | Unknown | + + + | Marital Status | | + + + | Congregation Affiliation | Unknown | + + + | Race | White | + + + | Ethnic Group | Not or | + + + Author + + + | Author | [facility] | + + + | Organization | [facility] | + + + | Address | Unknown | + + + | Phone | Unavailable | + + + Support + + +---------+ + | Name | Relationship | Address | Phone | + + +---------+ + | Gely Interiano | ECON | Unknown | | + + +---------+ + Care Team Providers + +------+ + | Care Spinner Continuous Name | Role | Phone | + +------+ + | Isaac Miranda MD | PCP | | + +------+ + Encounter Details +--------+ + + + + | Date | Type | Department | Care Team | Description | +--------+ + + + + | 04/30/ | Document-Sc | Health Information | Unknown . | | | 2011 | anned | Services [id number] | | | | | | [address] | | | | | | Mailcode: [id number] | | | | | | [facility] | | | | | | [place], [place] | | | | | | [address] | | | | | | [phone] | | | +--------+ + + + [...] + + + | RADIOLOGY | | 05/01/2011 | | Results for this | | | | 12:00 AM | | procedure are in the | | | | PDT | | results section. | + +--------+ + + + documented in this encounter Results RADIOLOGY (05/01/2011 12:00 AM PDT) + + + | Narrative | Performed At | + + + | | | + + + documented in this encounter Visit Diagnoses Not on filedocumented in this encounter"
--- OUTSIDE RECORDS SUMMARY | ~2019-11-12 | XMS | Encounter Summary ---
Demographics + + + | Address | [address] | | | [place] [address] | + + + | Home Phone [...] Team Providers + +------+ + | Care Circuit Walker Name | Role | Phone | + +------+ + | Isaac Miranda MD | PCP | | + +------+ + Encounter Details +--------+ + + + + | Date | Type | Department | Care Team | Description | +--------+ + + + + | 01/07/ | Orders Only | [facility] | Mahendra Luna MD | S/P cervical spinal | | 2011 | | NEUROSURGERY [address] | [address] | fusion (Primary Dx) | | | | [address] | [place] [address] | | | | | [place] | [phone] | | | | | [address] | | | | | | [phone] | | | +--------+ + + + [...] filedocumented as of this encounter Results XR Cervical Spine 2 or 3 Vw (01/16/2012 1:11 PM PST) + + | Specimen | + + | | + + + + + | Narrative | Performed At | + + + | [facility] | [place] | | Department [address] [place] [address] | [facility] | | [ rep [address]] [ rep [facility] | | [facility]] Signed | - IMAGING | | | | | Patient Name: PATRICE INTERIANO Victorino Physician: | | | ZULEYMA. : 1955 Age: 56 Sex: M Unit #: [id number] | | | Exam Date: 01/16/12 Location: [facility] | | | Report #: [id number] Page: | | | %(RAD)RES..mtdd.print.filter("pg") of %(RAD) | | | RES..mtdd.print.filter("tpg") | | | | | | Accession Number: [id number] | | | CERVICAL SPINE CLINICAL HISTORY: FOLLOW UP FUSION. | | | COMPARISON: 09/26/2011 FINDINGS: Anterior | | | compression plate and screws are present from C4 to C7. Interbody | | | bone grafts are seen at each level. Fixation hardware is in | | | stable, unchanged position from the immediate postoperative exam. | | | As yet, the bone grafts remain distinct, and no ankylosis is present | | | across the fused levels. Alignment is maintained. Adjacent soft | | | tissues appear normal. IMPRESSION: 1. STABLE | | | ANTERIOR CERVICAL DISKECTOMY AND FUSION CHANGES. | | | Dictated Date/Time: 01/16/2012 13:11 Transcribed Date/Time: | | | 01/16/2012 13:25 Fitting Room Checker: | | | <<Signature on File>> | | | | | | Dickson Armenta MD01/16/12 1402 <Electronically signed by | | | Dickson Armenta MD> Dickson Armenta MD 01/16/12 | | | 1311 Fitting Room Checker: Nurigene Shrevexdihucx31/27/12 1325 | | | Mahendra Luna MD | | + + + + + + + + | Performing | Address | City/State/Zipcode | Phone Number | | Organization | | | | + + + + + | [facility] | [address] | [place], [place] | [phone] | | [facility] | | [address] | | | - IMAGING | | | | + + + + + documented in this encounter Visit Diagnoses + + | Diagnosis | + + | S/P cervical spinal fusion - Primary Arthrodesis status | + + documented in this encounter
--- OUTSIDE RECORDS SUMMARY | ~2019-11-12 | XMS | Encounter Summary ---
Demographics + + + | Address | [address] | | | [place] [address] | + + + | Home Phone [...] Providers + +------+ + | Care Head Orthopedic Team Physician Name | Role | Phone | + [...] Description | +--------+--------+ + + + | 07/31/ | Refill | [facility] | Santi Dumont MD | Medication Refill | | 2020 | | MEDICINE [address] [place] [address] | [address] [place] [address] | | | | | [address] [facility], | [place], [place] | | | | | [place] [address] | [id number] | | | | | [phone] | | | +--------+--------+ + + + [...]
--- OUTSIDE RECORDS SUMMARY | ~2019-11-12 | XMS | Encounter Summary ---
Demographics + + + | Address | [address] | | | [place] [address] | + + + | Home Phone | | + + + | Preferred Language | Unknown | + + + | Marital Status | | + + + | Religion Affiliation | Unknown | + + + [...] Team Providers + +------+ + | Care Application Development Consultant Name | Role | Phone | + +------+ + | Isaac Miranda MD | PCP | | + +------+ + Reason for Visit + +--------+ + | Reason | Onset | Comments | | | Date | | + +--------+ + | Imaging Only | 02/20/ | | | | 2013 | | + +--------+ + Encounter Details +--------+ + + + + | Date | Type | Department | Care Team | Description | +--------+ + + + + | 02/20/ | Telephone | [facility] | Mahendra Luna MD | Imaging Only | | 2013 | | NEUROSURGERY [address] | [address] | | | | | [address] [facility] [address] | [place] [address] | | | | | [place] | [phone] | | | | | [address] | | | | | | [phone] | | | +--------+ + + + [...] this encounter Miscellaneous Notes Telephone Encounter - Jennifer Dailey - 02/20/2013 11:27 AM PSTSpoke to [facility] imaging repr esentative and requested the most recent lumbar xrays to be loaded to [facility] for 's re view. Reminder sent to MD for review & letter f/u. JENNIFER DAILEY documented in this enc ounter Plan of Treatment Not on filedocumented as of this encounter Visit Diagnoses Not on filedocumented in this encounter"
--- OUTSIDE RECORDS SUMMARY | ~2019-11-12 | XMS | Encounter Summary ---
Demographics + + + | Address | [address] | | | [place] [address] | + + + | Home Phone [...] Team Providers + +------+ + | Care Selvage Machine Operator Name | Role | Phone | + +------+ + | Isaac Miranda MD | PCP | | + +------+ + Reason for Visit +--------+--------+ + | Reason | Onset | Comments | | | Date | | +--------+--------+ + | Other | 01/23/ | follow-up xrays | | | 2012 | | +--------+--------+ + Encounter Details +--------+ + + + + | Date | Type | Department | Care Team | Description | +--------+ + + + + | 01/23/ | Telephone | [facility] | Mahendra Luna MD | Other (follow-up | | 2012 | | NEUROSURGERY [address] | [address] | xrays ) | | | | [address] [facility] [address] | [place] [address] | | | | | [place] | [phone] | | | | | [address] | | | | | | [phone] | | | +--------+ + + + [...] Notes Telephone Encounter - Jennifer Dailey - 01/27/2013 8:20 AM PSTLeft detailed message for patient-reminder for x-rays per Dr. Luna after patient's last office visit. Request [facility] [place] elephone Encounter - Jennifer Dailey - 01/23/2013 11:11 AM PSTMessage left for patient. Would he like us to f ax this order to [facility]? JENNIFER DAILEY elephone Encounter - Jennifer Dailey - 01/23/2013 11:10 AM PSTMessage copied by JENNIFER DAILEY on SunJan 23, 2013 1110 ------ Message from: JENNIFER DAILEY Created: SunOct 16, 2012 1314 Regarding: F/U xrays Lumbar/cervical xrays to be done in January. Letter f/u documented in this encounter Plan of Treatment Not on filedocumented as of this encounter Visit Diagnoses Not on filedocumented in this encounter"
--- OUTSIDE RECORDS SUMMARY | ~2019-11-12 | XMS | Encounter Summary ---
Demographics + + + | Address | [address] | | | [place] [address] | + + + | Home Phone | | + + + | Preferred Language | Unknown | + + + | Marital Status | | + + + | Faith Affiliation | Unknown | + + + | Race | White | + + + | Ethnic Group | Not or | + + + Author + + + | Author | [facility] | | | and [place] | + + + | Organization | [facility] | | | [...] Team Providers + +------+ + | Care Transportation Consultant Name | Role | Phone | + +------+ + | Santi Dumont MD | PCP | | + +------+ + Reason for Visit + + + | Reason | Comments | + + + | Follow-up | patient is here for [address] and labs | + + + Encounter Details +--------+---------+ + + + | Date | Type | Department | Care Team | Description | +--------+---------+ + + + | 01/01/ | Office | [facility] | Santi Dumont MD | Other chronic | | 2018 | Visit | MEDICINE [address] | [address] [facility] | pulmonary embolism | | | | [address] [place], | [place] | without acute cor | | | | [place] [address] | [address] | pulmonale (HCC) | | | | [phone] | | (Primary Dx); Drug | | | | | | rash; Needs flu | | | | | | shot; Need for | | | | | | hepatitis C | | | | | | screening test; | | | | | | Essential | | | | | | hypertension | +--------+---------+ + + + Social History [...] + + + | Blood Pressure | 148/88 | 01/01/2018 10:04 AM | | | | | PST | | + + + + + | Pulse | 96 | 01/01/2018 10:04 AM | | | | | PST | | + + + + + | Temperature | 36.6 C (97.9 F) | 01/01/2018 10:04 AM | | | | | PST | | + + + + + | Respiratory Rate | 12 | 01/01/2018 10:04 AM | | | | | PST | | + + + + + | Oxygen Saturation | 96% | 01/01/2018 10:04 AM | | | | | PST | | + + + + + | Inhaled Oxygen | - | - | | | Concentration | | | | + + + + + | Weight | 117.2 kg (258 lb 6.1 | 01/01/2018 10:04 AM | | | | oz) | PST | | + + + + + | Height | 177.8 cm (5' 10") | 01/01/2018 10:04 AM | | | | | PST | | + + + + + | Body Mass Index | 37.07 | 01/01/2018 10:04 AM | | | | | PST | | + + + + + documented in this encounter Patient Instructions Patient Instructions Maria Teresa Tejeda CMA - 01/01/2018 10:20 AM PSTContinue same medication s. You need 30 min non-sedentary activity daily. This preserves memory function, reduces disab ility and prolongs lifespan! Follow up at annual physical on 05/15/2018 and Please do fasting lab prior, 12 hr prior mirtha er only Lab open 7AM-5:30pm Sunday-Sunday; 8AM-4PM on Sunday (use [address] [place] [address] Urgent Care on Satu rday) documented in this encounter Progress Notes Santi Dumont MD - 01/01/2018 10:20 AM PST 01/01/2018 Patrice Interiano 1955 History: Patrice Interiano is a 62 y.o. male here for follow-up recurrent pulmonary embolism He was diagnosed with bilateral pulmonary emboli on December 07. The episode was unprovoked . One week later, he experienced a generalized macular papular rash over his torso, that wa s not associated with any new medications, soaps, or foods. He was treated with a Medrol Do [place] with improvement and has had no recurrence of rash. There is no associated mucositis. He currently tolerates walking up to 3 hours at a time but is short of breath with higher l evels of activity. He denies chest pain or hemoptysis. Current Outpatient Prescriptions Medication Sig Dispense Refill [...] tablet Take 10 mg by mouth Daily. methylPREDNISolone (MEDROL DOSEPAK) 4 mg tablet Follow package directions. 21 tablet 0 nadolol (CORGARD) 80 MG tablet Take 0.5 [...] Reported on 12/07/2017) 30 tablet 0 No current facility-administered medications for this visit. No Known Allergies Review of Systems Respiratory: Positive for shortness of breath (with exertion ). Cardiovascular: Negative for chest pain. Physical Exam: BP 148/88 | Pulse 96 | Temp 36.6 C (97.9 F) (Temporal) | Resp 12 | Ht 1.778 m (5' 1 0") | Wt 117.2 kg (258 lb 6.1 oz) | SpO2 96% | BMI 37.07 kg/m General: obese man in no distress. Lungs: clear to auscultation & percussion. Respirations unlabored. Heart: regular rhythm, no murmur. Extremities: trace edema to mid tibia. Skin: 5 mm papule left neck area, benign appearing. Psych: normal affect. Assessment: 1. Recurrent pulmonary embolism, without heart failure currently Due to recurrent pulmonary embolism, will need long-term anticoagulation. 2. Drug rash , resolved Uncertain etiology. Patient is thin tingling to tolerate current Eliquis dose 3. Needs flu shot Influenza *PF 3 yr or >, Quadrivalent PSKT or Vial 4. Need for hepatitis C screening test Hepatitis C Ab 5. Essential hypertension Plan: 1. Flu vaccine advised and administered today. 2. Continue same medications. 3. Fasting lab in april (CBC, CMP , Hep C screening and Lipid panel) Followup Instructions: Return for annual physical on 05/15/2018. I, Santi Dumont MD, personally performed the services described in this documentation as scribed by Maria Teresa Tejeda M.A in my presence, and the documentation is both accurate and com plete. Santi Dumont MD 01/02/2018 documented in this enc ounter Plan of Treatment Not on filedocumented as of this encounter Results Comprehensive Metabolic Panel (05/15/2018 3:02 PM PDT) + +---------+ + + + | Component | Value | Ref Range | Performed | Pathologist | | | | | At | Signature | + +---------+ + + + | Na | 138 | 136 - 145 | [facility] | | | | | mmol/L | [facility] | | | | | | MEDICAL | | | | | | CENTER - | | | | | | LABORATORY | | + +---------+ + + + | K | 3.9 | 3.4 - 5.1 | [facility] | | | | | mmol/L | [facility] | | | | | | MEDICAL | | | | | | CENTER - | | | | | | LABORATORY | | + +---------+ + + + | Cl | 102 | 98 - 107 mmol/L | [facility] | | | | | | [facility] | | | | | | MEDICAL | | | | | | CENTER - | | | | | | LABORATORY | | + +---------+ + + + | CO2 | 32 (H) | 20 - 31 mmol/L | [facility] | | | | | | [facility] | | | | | | MEDICAL | | | | | | CENTER - | | | | | | LABORATORY | | + +---------+ + + + | Anion Gap | 4 | 3 - 16 mmol/L | [facility] | | | | | | [facility] | | | | | | MEDICAL | | | | | | CENTER - | | | | | | LABORATORY | | + +---------+ + + + | Glucose | 82 | 60 - 106 mg/dL | [facility] | | | | | | [facility] | | | | | | MEDICAL | | | | | | CENTER - | | | | | | LABORATORY | | + +---------+ + + + | BUN | 15 | 9 - 23 mg/dL | [facility] | | | | | | [facility] | | | | | | MEDICAL | | | | | | CENTER - | | | | | | LABORATORY | | + +---------+ + + + | Creatinine | 1.10 | 0.70 - 1.30 | [facility] | | | | | mg/dL | [facility] | | | | | | MEDICAL | | | | | | CENTER - | | | | | | LABORATORY | | + +---------+ + + + | eGFR, | >60 | >=60 | [facility] | | | non- | | mL/min/1.73m2 | [facility] | | | Filipino | | | MEDICAL | | | | | | CENTER - | | | | | | LABORATORY | | + +---------+ + + + | Calcium | 9.9 | 8.7 - 10.4 | [facility] | | | | | mg/dL | [facility] | | | | | | MEDICAL | | | | | | CENTER - | | | | | | LABORATORY | | + +---------+ + + + | Albumin | 4.6 | 3.2 - 4.8 g/dL | [facility] | | | | | | [facility] | | | | | | MEDICAL | | | | | | CENTER - | | | | | | LABORATORY | | + +---------+ + + + | Bilirubin | 1.0 | 0.3 - 1.2 mg/dL | [facility] | | | Total | | | [facility] | | | | | | MEDICAL | | | | | | CENTER - | | | | | | LABORATORY | | + +---------+ + + + | Total | 6.7 | 5.7 - 8.2 g/dL | [facility] | | | Protein | | | [facility] | | | | | | MEDICAL | | | | | | CENTER - | | | | | | LABORATORY | | + +---------+ + + + | AST | 60 (H) | 0 - 34 U/L | [facility] | | | | | | [facility] | | | | | | MEDICAL | | | | | | CENTER - | | | | | | LABORATORY | | + +---------+ + + + | ALT | 73 (H) | 10 - 49 U/L | [facility] | | | | | | [facility] | | | | | | MEDICAL | | | | | | CENTER - | | | | | | LABORATORY | | + +---------+ + + + | Alkaline | 57 | 46 - 116 U/L | [facility] | | | Phosphatase | | | [facility] | | | | | | MEDICAL | | | | | | CENTER - | | | | | | LABORATORY | | + +---------+ + + + | Globulin | 2.1 | 2.1 - 3.8 g/dL | [facility] | | | | | | [facility] | | | | | | MEDICAL | | | | | | CENTER - | | | | | | LABORATORY | | + +---------+ + + + | Albumin/Julianna | 2.2 (H) | 0.8 - 1.9 | [facility] | | | bulin Ratio | | | [facility] | | | | | | MEDICAL | | | | | | CENTER - | | | | | | LABORATORY | | + +---------+ + + + | BUN/Creatin | 13.6 | | [facility] | | | ine [...] | [address] | [place] | [phone] | | [facility] | | [address] | | | - LABORATORY | | | | + + + + + CBC with Differential (05/15/2018 3:02 PM PDT) + + + + + + | Component | Value | Ref Range | Performed | Pathologist | | | | | At | Signature | + + + + + + | White Blood | 6.0 | 4.0 - 11.0 K/uL | [facility] | | | Cells | | | [facility] | | | | | | MEDICAL | | | | | | CENTER - | | | | | | LABORATORY | | + + + + + + | Red Blood | 4.88 | 4.30 - 5.70 | [facility] | | | Cells | | M/uL | [facility] | | | | | | MEDICAL | | | | | | CENTER - | | | | | | LABORATORY | | + + + + + + | Hemoglobin | 14.9 | 13.5 - 18.0 | [facility] | | | | | g/dL | [facility] | | | | | | MEDICAL | | | | | | CENTER - | | | | | | LABORATORY | | + + + + + + | Hematocrit | 45.6 | 40.0 - 51.0 % | [facility] | | | | | | [facility] | | | | | | MEDICAL | | | | | | CENTER - | | | | | | LABORATORY | | + + + + + + | MCV | 93.4 | 83.0 - 101.0 fL | [facility] | | | | | | [facility] | | | | | | MEDICAL | | | | | | CENTER - | | | | | | LABORATORY | | + + + + + + | MCH | 30.5 | 28.0 - 35.0 pg | [facility] | | | | | | [facility] | | | | | | MEDICAL | | | | | | CENTER - | | | | | | LABORATORY | | + + + + + + | MCHC | 32.7 | 32.0 - 36.0 | [facility] | | | | | g/dL | [facility] | | | | | | MEDICAL | | | | | | CENTER - | | | | | | LABORATORY | | + + + + + + | RDW-CV | 13.0 | <15.0 % | [facility] | | | | | | [facility] | | | | | | MEDICAL | | | | | | CENTER - | | | | | | LABORATORY | | + + + + + + | RDW-SD | 43.9 | 35.1 - 46.3 fL | [facility] | | | | | | [facility] | | | | | | MEDICAL | | | | | | CENTER - | | | | | | LABORATORY | | + + + + + + | Platelet | 231 | 140 - 440 K/uL | [facility] | | | Count | | | [facility] | | | | | | MEDICAL | | | | | | CENTER - | | | | | | LABORATORY | | + + + + + + | MPV | 9.5 | 6.5 - 12.4 fL | [facility] | | | | | | [facility] | | | | | | MEDICAL | | | | | | CENTER - | | | | | | LABORATORY | | + + + + + + | % | 62.5 | 45.0 - 82.0 % | [facility] | | | Neutrophils | | | [facility] | | | | | | MEDICAL | | | | | | CENTER - | | | | | | LABORATORY | | + + + + + + | % | 25.2 | 20.0 - 45.0 % | [facility] | | | Lymphocytes | | | [facility] | | | | | | MEDICAL | | | | | | CENTER - | | | | | | LABORATORY | | + + + + + + | % Monocytes | 8.6 | 4.0 - 12.0 % | [facility] | | | | | | [facility] | | | | | | MEDICAL | | | | | | CENTER - | | | | | | LABORATORY | | + + + + + + | % | 2.7 | 0.0 - 5.0 % | [facility] | | | Eosinophils | | | [facility] | | | | | | MEDICAL | | | | | | CENTER - | | | | | | LABORATORY | | + + + + + + | % Basophils | 0.5 | 0.0 - 1.0 % | [facility] | | | | | | [facility] | | | | | | MEDICAL | | | | | | CENTER - | | | | | | LABORATORY | | + + + + + + | % Immature | 0.5 (H)Comment: | 0.0 - 0.4 % | [facility] | | | Granulocyte | Preliminary studIes have | | [facility] | | | s | indicated the IG% | | MEDICAL | | | | and/or IG# show promise | | CENTER - | | | | as an early screen for | | LABORATORY | | | | infection. | | | | + + + + + + | Absolute | 3.76 | 1.80 - 8.50 | [facility] | | | Neutrophils | | K/uL | [facility] | | | | | | MEDICAL | | | | | | CENTER - | | | | | | LABORATORY | | + + + + + + | Absolute | 1.52 | 0.60 - 3.20 | [facility] | | | Lymphocytes | | K/uL | [facility] | | | | | | MEDICAL | | | | | | CENTER - | | | | | | LABORATORY | | + + + + + + | Absolute | 0.52 | 0.00 - 1.00 | [facility] | | | Monocytes | | K/uL | [facility] | | | | | | MEDICAL | | | | | | CENTER - | | | | | | LABORATORY | | + + + + + + | Absolute | 0.16 | 0.00 - 0.40 | [facility] | | | Eosinophils | | K/uL | [facility] | | | | | | MEDICAL | | | | | | CENTER - | | | | | | LABORATORY | | + + + + + + | Absolute | 0.03 | 0.00 - 0.10 | [facility] | | | Basophils | | K/uL | [facility] | | | | | | MEDICAL | | | | | | CENTER - | | | | | | LABORATORY | | + + + + + + | Absolute | 0.03 | 0.00 - 0.03 | [facility] | | | Immature | | K/uL | [facility] | | | Granulocyte | | | MEDICAL | | | s | | | CENTER - | | | | | | LABORATORY | | + + + + + + | % nRBC | 0 | 0 - 2 per 100 | [facility] | | | | | WBC's | [facility] | | | | | | MEDICAL | | | | | | CENTER - | | | | | | LABORATORY | | + + + + + + | Absolute | 0.00 | 0.00 - 0.01 | [facility] | | | nRBC | | K/uL | [facility] | | | | [...] + | [facility] | [address] | [place] | [phone] | | [facility] | | [address] | | | - LABORATORY | | | | + + + + + Hepatitis C Ab (05/15/2018 3:02 PM PDT) + + + + + + | Component | Value | Ref Range | Performed | Pathologist | | | | | At | Signature | + + + + + + | Hepatitis C | <0.1Comment: | 0.0 - 0.9 s/co | [facility] | | | Ab | | ratio | LAB [facility] | | | | | | [facility] | | | | Negative: < 0.8 | | | | | | | | | | | | | | | | | | Indeterminate: 0.8 - 0.9 | | | | | | | | | | | | | | | | | | Positive: > 0.9 | | | | | | The CDC recommends that | | | | | | a positive HCV antibody | | | | | | result be followed up | | | | | | with a HCV Nucleic Acid | | | | | | Amplification test | | | | | | ([id number]). | | | | + + + + + + + + | Specimen | + + | Blood | + + + + + | Narrative | Performed At | + + + | Performed at: [address] [address], | REFERENCE LAB | | [place], [place] [id number] Manager Alliance: Isaac Olivares MD, Phone: | [facility] | | [phone] | | + + + + + + + + | Performing | Address | City/State/Zipcode | Phone Number | | Organization | | | | + + + + + | REFERENCE LAB | [address] | [place], [place] | [phone] | | [facility] | [place] | [id number] | | + + + + + documented in this encounter Visit Diagnoses + + | Diagnosis | + + | Other chronic pulmonary embolism without acute cor pulmonale (HCC) - Primary | + + | Drug rash Dermatitis due to drugs and medicines taken internally | + + | Needs flu shot Need for prophylactic vaccination and inoculation against influenza | + + | Need for hepatitis C screening test Special screening examination for other specified | | viral diseases | + + | Essential hypertension Unspecified essential hypertension | + + documented in this encounter
--- OUTSIDE RECORDS SUMMARY | ~2019-11-12 | XMS | Encounter Summary ---
Demographics + + + | Address | [address] | | | [place] [address] | + + + | Home Phone [...] Team Providers + +------+ + | Care Joint Cutter Machine Name | Role | Phone | + +------+ + | Isaac Miranda MD | PCP | | + +------+ + Encounter Details +--------+ + + + + | Date | Type | Department | Care Team | Description | +--------+ + + + + | 08/16/ | Document-Sc | Health Information | Unknown . | | | 2011 | anned | Services [id number] | | | | | | [address] | | | | | | Mailcode: [id number] | | | | | | [facility] | | | | | | [place], [place] | | | | | | [address] | | | | | | [phone] | | | +--------+ + + + [...] + + + | RADIOLOGY | | 08/17/2011 | | Results for this | | | | 12:00 AM | | procedure are in the | | | | PDT | | results section. | + +--------+ + + + documented in this encounter Results RADIOLOGY (08/17/2011 12:00 AM PDT) + + + | Narrative | Performed At | + + + | | | + + + documented in this encounter Visit Diagnoses Not on filedocumented in this encounter"
--- OUTSIDE RECORDS SUMMARY | ~2019-11-12 | XMS | Encounter Summary ---
Demographics + + + | Address | [address] | | | [place] [address] | + + + | Home Phone | | + + + | Preferred Language | Unknown | + + + | Marital Status | | + + + | Episcopal Affiliation | Unknown | + + + | Race | White | + + + | Ethnic Group | Not or | + + + Author + + + | Author | [facility] | | | and [place] | + + + | Organization | [facility] | | [...] Team Providers + +------+ + | Care Advertising Traffic Manager Name | Role | Phone | [...] Description | +--------+--------+ + + + | 03/01/ | Refill | [facility] | Edilma Fatima | Medication Refill | | 2020 | | MEDICINE [address] | [address] | | | | | [facility] [place] [facility], | [place] [facility] | | | | | [place] [address] | [place] [address] | | | | | [phone] | [phone] | | | | | | | [...]
--- OUTSIDE RECORDS SUMMARY | ~2019-11-12 | XMS | Encounter Summary ---
Demographics + + + | Address | [address] | | | [place] [address] | + + + | Home Phone | | + + + | Preferred Language | Unknown | + + + | Marital Status | | + + + | Uatsdin Affiliation | Unknown | + + + | Race | White | + + + | Ethnic Group | Not or | + + + Author + + + | Author | [facility] | | | and Brianana | + + + | Organization | [facility] | | | [...] Team Providers + +------+ + | Care Damper Worker Name | Role | Phone | + +------+ + | Santi Dumont MD | PCP | | + +------+ + Reason for Visit + +--------+ + | Reason | Onset | Comments | | | Date | | + +--------+ + | Medication Refill | 02/05/ | | | | 2018 | | + +--------+ + Encounter Details +--------+--------+ + + + | Date | Type | Department | Care Team | Description | +--------+--------+ + + + | 02/05/ | Refill | [facility] | Santi Dumont MD | Medication Refill | | 2018 | | MEDICINE [address] | [address] [facility] | | | | | [place], | [place] | | | | | [place] [address] | [address] | | | | | [phone] | | | +--------+--------+ + + + [...]
--- OUTSIDE RECORDS SUMMARY | ~2019-11-12 | XMS | Encounter Summary ---
Demographics + + + | Address | [address] | | | [place] [address] | + + + | Home Phone [...] + + + | Author | [facility] | | | and [place]ana | + + + | Organization | [facility] | | [...] Team Providers + +------+ + | Care Sedimentationist Name | Role | Phone | + +------+ + | Santi Dumont MD | PCP | | + +------+ + Reason for Visit + +--------+ + | Reason | Onset | Comments | | | Date | | + +--------+ + | Paperwork | 08/07/ | | | | 2016 | | + +--------+ + Encounter Details +--------+ + + + + | Date | Type | Department | Care Team | Description | +--------+ + + + + | 08/07/ | Telephone | [facility] | Stas Whalen | Paperwork | | 2017 | | NEUROSURGERY [address] | | | | [address] | [place], [place] | | | | | [place], [place] | [address] | | | | | [address] | | | | | | [phone] | | | +--------+ + + + [...] this encounter Miscellaneous Notes Telephone Encounter - Kaitlynn Bryson - 08/07/2016 11:34 AM PDTReceived call from patients today, requesting itemized statement for DOS 07/25/2016, service with [facility] [place] [facility]. Sent email to billing dept Per Uzma in billing This has been mailed Electronically signed by Kaitlynn Bryson at 2016 11:37 AM PDTdocumented in this encounter Plan of Treatment Not on filedocumented as of this encounter Visit Diagnoses Not on filedocumented in this encounter"
--- OUTSIDE RECORDS SUMMARY | ~2019-11-12 | XMS | Encounter Summary ---
Demographics + + + | Address | [address] | | | [place] [address] | + + + | Home Phone | | + + + | Preferred Language | Unknown | + + + | Marital Status | | + + + | Anabaptist Affiliation | Unknown | + + + | Race | White | + + + | Ethnic Group | Not or | + + + Author + + + | Author | [facility] | + + + | Organization | [facility] | + + + | Address | Unknown | + + + | Phone | Unavailable | + + + Support + + +---------+ + | Name | Relationship | Address | Phone | + + +---------+ + | Gely Interiano | ECON | Unknown | | + + +---------+ + Care Team Providers + +------+ + | Care Automatic Lathe Setter Name | Role | Phone | + +------+ + | Isaac Miranda MD | PCP | | + +------+ + Encounter Details +--------+ + + + + | Date | Type | Department | Care Team | Description | +--------+ + + + + | 07/05/ | Document-Sc | Health Information | Unknown . | | | 2011 | anned | Services [id number] | | | | | | [address] | | | | | | Mailcode: [id number] | | | | | | [facility] | | | | | | [place], [place] | | | | | | [address] | | | | | | [phone] | | | +--------+ + + + [...] + + + | RADIOLOGY | | 07/06/2011 | | Results for this | | | | 12:00 AM | | procedure are in the | | | | PDT | | results section. | + +--------+ + + + documented in this encounter Results RADIOLOGY (07/06/2011 12:00 AM PDT) + + + | Narrative | Performed At | + + + | | | + + + documented in this encounter Visit Diagnoses Not on filedocumented in this encounter"
--- OUTSIDE RECORDS SUMMARY | ~2019-11-12 | XMS | Encounter Summary ---
Demographics + + + | Address | [address] | | | [place] [address] | + + + | Home Phone | | + + + | Preferred Language | Unknown | + + + | Marital Status | | + + + | Sabianist Affiliation | Unknown | + + + [...] Team Providers + +------+ + | Care Tire Balancer Name | Role | Phone | + [...] | 08/30/ | Refill | [facility] [place] [facility] | Santi Dumont MD | Medication Refill | | 2017 | | MEDICINE [address] [place] [address] | [address] [place] [address] | | | | | [address] [place], | [place], [place] | | | | | [place] [address] | [address] | | | | | [phone] | | | +--------+--------+ + + + [...] Telephone Encounter - Santi Dumont MD - 09/03/2017 9:11 PM PDTReport noted. Electronica lly signed by Santi Dumont MD at 09/03/2017 9:11 PM PDTTelephone Encounter - Funmi Roper RN - 09/03/2017 3:54 PM PDTTony states he hasn't seen the pants busheler yet. Stearns s an appt soon with him in [facility]. He is still taking Eliquis 5mg twice daily and will stay on until told to stop it by Copyright Manager or Dr. Dumont. Patrice does have an appt with Dr Edgar Dumont 09/10. el ephone Encounter - Santi Dumont MD - 09/02/2017 9:25 PM PDTPatient was advised by his pu lmonologist to resume anticoagulation postoperatively. Please check to see if he wants this refilled. elephone Buzz breen - Connie Fabian LPN - 08/31/2017 9:38 AM PDTMedication list shows Eliquis disconti nued 05-03-17 as "therapy completed" documented in this encounter Plan of Treatment Not on filedocumented as of this encounter Visit Diagnoses Not on filedocumented in this encounter
--- OUTSIDE RECORDS SUMMARY | ~2019-11-12 | XMS | Encounter Summary ---
Demographics + + + | Address | [address] | | | [place] [address] | + + + | Home Phone | | + + + | Preferred Language | Unknown | + + + | Marital Status | | + + + | Zoroastrian Affiliation | Unknown | + + + | Race | White | + + + | Ethnic Group | Not or | + + + Author + + + | Author | [facility] | | | and [place]ana | + + + | Organization | [facility] | | [...] Team Providers + +------+ + | Care Conditioning Coach Name | Role | Phone | + +------+ + | Santi Dumont MD | PCP | | + +------+ + Reason for Visit +--------+--------+ + | Reason | Onset | Comments | | | Date | | +--------+--------+ + | Other | 03/14/ | | | | 2017 | | +--------+--------+ + Encounter Details +--------+ + + + + | Date | Type | Department | Care Team | Description | +--------+ + + + + | 03/14/ | Telephone | [facility] | Santi Dumont MD | Other | | 2018 | | [address] | [address] [place] [address] | | | | | [place], | [place], [place] | | | | | [place] [address] | [address] | | | | | [phone] | | | +--------+ + + + [...] this encounter Miscellaneous Notes Telephone Encounter - Bev Hare RN - 03/15/2017 3:27 PM Juan C Snyder orders were faxed elephone Encoun ter - Santi Dumont MD - 03/15/2017 8:18 AM PSTOrders signed to discontinue home oxygenEl ectronically signed by Santi Dumont MD at 03/15/2017 8:18 AM PSTTelephone Encounter - Africa Weinberg - 03/14/2017 4:53 PM PSTJana called and stated In Home Medical needs order for patient to discontinue oxygen. Fax order over to [phone]. documented in this encounter Plan of Treatment Not on filedocumented as of this encounter Visit Diagnoses Not on filedocumented in this encounter"
--- OUTSIDE RECORDS SUMMARY | ~2019-11-12 | XMS | Encounter Summary ---
Demographics + + + | Address | [address] | | | [place] [address] | + + + | Home Phone [...] Team Providers + +------+ + | Care Flight Director Name | Role | Phone | + +------+ + | Isaac Miranda MD | PCP | | + +------+ + Reason for Visit +--------+--------+ + | Reason | Onset | Comments | | | Date | | +--------+--------+ + | Other | 10/14/ | cancel appointment | | | 2012 | | +--------+--------+ + Encounter Details +--------+ + + + + | Date | Type | Department | Care Team | Description | +--------+ + + + + | 10/14/ | Telephone | [facility] [place] | Mahendra Luna MD | Other (cancel | | 2012 | | NEUROSURGERY [address] | [address] | appointment ) | | | | [address] [facility] [address] | [place] [address] | | | | | [place] | [phone] | | | | | [address] | | | | | | [phone] | | | +--------+ + + + [...] Notes Telephone Encounter - Hillary Dailey - 10/16/2012 1:14 PM PDTJana is updated at this t elsie. Hillary Dailey elephone Encounter - Hillary Dailey - 10/15/2012 9:30 AM PDTMessage left for patient. Request callback. Hillary Dailey elephone Encounter - Mahendra Luna MD - 10/14/2012 6:09 PM PDTI ordered cervical and lumbar x-rays for January (18 months post cervical, 12 months post-lumbar) Mahendra Luna elephone Encounter - [facility] Hillary Garces - 10/14/2012 8:43 AM Theresa, Patrice's , calls to let Dr. Luna know that they are cancelling Patrice's 10/15/12 office visit. Most of his symptoms have subsided since his last office visit except for some complaint of hip pain. Would Dr. Luna like him to hav e x-rays at 6 months for cervical fusion follow-up and 1 year for lumbar follow-up? Hillary Dailey documented in this enc ounter Plan of Treatment + +---------+--------+ + + | Name | Type | Priori | Associated Diagnoses | Order Schedule | | | | ty | | | + +---------+--------+ + + | XR Lumbar Spine 2 or | Imaging | Routin | S/P lumbar fusion | Expected: 01/12/2013 | | 3 Vw | | e | | (Approximate), | | | | | | Expires: 10/13/2013 | + +---------+--------+ + + | XR Cervical Spine 3 | Imaging | Routin | S/P cervical | Expected: 01/12/2013 | | Vws or Less | | e | spinal fusion | (Approximate), | | | | | | Expires: 10/13/2013 | + +---------+--------+ + + documented as of this encounter Visit Diagnoses + + | Diagnosis | + + | S/P cervical spinal fusion - Primary Arthrodesis status | + + | S/P lumbar fusion Arthrodesis status | + + documented in this encounter"
--- OUTSIDE RECORDS SUMMARY | ~2019-11-12 | XMS | Encounter Summary ---
Demographics + + + | Address | [address] | | | [place] [address] | + + + | Home Phone | | + + + | Preferred Language | Unknown | + + + | Marital Status | | + + + | Denominational Affiliation | Unknown | + + + | Race | White | + + + | Ethnic Group | Not or | + + + Author + + + | Author | [facility] | | | and Brianana | + + + | Organization | [facility] | | [...] Team Providers + +------+ + | Care Guest Specialist Name | Role | Phone | [...] Description | +--------+--------+ + + + | 08/02/ | Refill | [facility] [place] [facility] | Santi Dumont MD | Medication Refill | | 2019 | | [address] | [address] [place] [address] | | | | | [address] [place], | [place], [place] | | | | | [place] [address] | [address] | | | | | [phone] | | | +--------+--------+ + + + [...]
--- OUTSIDE RECORDS SUMMARY | ~2019-11-12 | XMS | Encounter Summary ---
Demographics + + + | Address | [address] | | | [place] [address] | + + + | Home Phone [...] Team Providers + +------+ + | Care Survey Data Technician Name | Role | Phone | [...] | (obstructive | [address] | [address] | | | | | sleep | [address] | [place], | | | | | apnea) | [place] | [place] [address] | | | | | Procedures | [id number] | Phone: | | | | | [place] [facility] | Phone: | [phone] | | | | | STUDY, | [phone] | Fax: | | | | | UNATTENDED, | Fax: | [phone] | | | | | SIMUL RECORD | [phone] | | | | | | HR/O2 | | | | | | | SAT/RESP | | | | | | | FLOW/RESP | | | | | | | EFF HST | | | +--------+ + + + + + Reason for Visit +---------+ + | Reason | Comments | +---------+ + | Consult | | +---------+ + Evaluate & Treat (Routine) +--------+ + + [...] | Nocturnal | Santi Fleming MD | [facility] | | | Required | | hypoxemia | [address] | Disorder [address] | [address] | | | | | | [place], | [place], | | | | | | [place] [address] | [place] [address] | | | | | | Phone: | Phone: | | | | | | [phone] | [phone] | | | | | | Fax: | Fax: | | | | | | [phone] | [phone] | +--------+ + + + + + Encounter Details +--------+---------+ + + + | Date | Type | Department | Care Team | Description | +--------+---------+ + + + | 03/20/ | Office | [facility] | Tiesha Pérez MD | RLS (restless legs | | 2018 | Visit | SLEEP DISORDER [address] | [address] | syndrome) (Primary | | | | [address] [place] | [place] | Dx); [place] | | | | [place] [address] | [address] | (obstructive sleep | | | | [phone] | | apnea) | +--------+---------+ + + + Social History [...] + | Blood Pressure | 140/80 | 03/20/2017 2:56 PM | | | | | PST | | + + + + + | Pulse | 56 | 03/20/2017 2:56 PM | | | | | PST | | + + + + + | Temperature | - | - | | + + + + + | Respiratory Rate | 16 | 03/20/2017 2:56 PM | | | | | PST | | + + + + + | Oxygen Saturation | 94% | 03/20/2017 2:56 PM | | | | | PST | | + + + + + | Inhaled Oxygen | - | - | | | Concentration | | | | + + + + + | Weight | 112.9 kg (248 lb | 03/20/2017 2:56 PM | | | | 14.4 oz) | PST | | + + + + + | Height | 177.8 cm (5' 10") | 03/20/2017 2:56 PM | | | | | PST | | + + + + + | Body Mass Index | 35.71 | 03/20/2017 2:56 PM | | | | | PST | | + + + + + documented in this encounter Patient Instructions Patient Instructions Tiesha Pérez MD - 03/20/2017 3:00 PM PSTFormatting of this note villa ht be different from the original. Please: - Schedule your sleep study. An appointment will be made a few days after the sleep study s o that we can discuss the results of the sleep study with you to determine how to best help you with your sleep issues. If you can't come to the sleep center on the night of your scheduled sleep study, please no tify us ( ). - check your ferritin level. It was very nice meeting you today and thank you for letting me take care of you. What Are Snoring and Obstructive Sleep Apnea? If you ve ever had a stuffed-up nose, you know the feeling of trying to breathe through a very narrow passageway. This is what happens in your throat when you snore. While you sleep , structures in your throat partially block your air passage, making the passage narrow and hard to breathe through. If the entire passage becomes blocked and you can t breathe at al l, you have sleep apnea. Snoring Obstructive sleep apnea Snoring If your throat structures are too large or the muscles relax too much during sleep, the air passage may be partially blocked. As air from the nose or mouth passes around this blockage , the throat structures vibrate, causing the familiar sound of snoring. At times, this sound can be so loud that snorers wake up others, or even themselves, during the night. Snoring g ets worse as more and more of the air passage is blocked. Obstructive sleep apnea If the structures completely block the throat, air can t flow to the lungs at all. This i s called apnea (meaning no breathing ). Since the lungs aren t getting fresh air, the brain tells the body to wake up just enough to tighten the muscles and unblock the air pass age. With a loud gasp, breathing begins again. This process may be repeated over and over ag ain throughout the night, making your sleep fragmentedwith a float operator stage of sleep. Even though you do not remember waking up many times during the night to a float operator sleep, you fee l tired the next day. The lack of sleep and fresh air can also strain your lungs, heart, and other organs, leading to problems such as high blood pressure, heart attack, or stroke. Problems in the nose and jaw Problems in the structure of the nose may obstruct breathing. A crooked (deviated) septum o r swollen turbinates can make snoring worse or lead to apnea. Also, a receding jaw may make the tongue sit too far back, so it s more likely to block the airway when you re asleep. Date Last Reviewed: 09/05/201419997201-0476 [employer]. [address] [place] [address]. All righ ts reserved. This information is not intended as a substitute for professional medical care. Always follow your healthcare professional's instructions. Continuous Positive Air Pressure (CPAP) A mask over the nose gently directs air into the throat to keep the airway open. Continuous positive air pressure (CPAP)uses gentle air pressure to hold the airway open. CPAP is often the most effective treatment for sleep apnea and severe snoring. It works very well for many people. But keep in mind that it can take several adjustments before the setu p is right for you. How CPAP works The CPAP machine is asmall portable pump beside the bed. The pumpsends air through a hose, which is held over your noseand mouthby a mask.Mild air pressureis gently push ed through your airway. The air pressure nudges sagging tissues aside. This widens the airwa y so you can breathe better. CPAP may be combined with other kinds of therapy for sleep apne a. Types of air pressure treatments There are different types of CPAP. Your doctor or CPAP billing and quality technician will help you decide whic h type is best for you: Basic CPAPkeeps the pressure constant all night long. A bilevel device(BiPAP)providesmore pressure when you breathe in and less when you breathe out.A BiPAP machine also may be set to provide automatic breaths to maintain hanna thing if you stop breathing while sleeping. An autoCPAP deviceautomatically adjusts pressure throughout the night and in response to changes such as body position, sleep stage, and snoring. Date Last Reviewed: 09/28/201419995932-1749 [employer]. [address] [place], [place] [id number]. All righ ts reserved. This information is not intended as a substitute for professional medical care. Always follow your healthcare professional's instructions. documented in this encounter Progress Notes Tiesha Pérez MD - 03/20/2017 3:00 PM PST ID/CC: We are asked to seePatrice Interiano referred for consultation from Santi Dumont with noctur nal hypoxemia for evaluation of obstructive sleep apnea. Patrice Interiano is a 61 y.o. year male old with history of status post DVT and pulmonary em bolism in November 2016, GERD and h/o of hiatal hernia, hypertension, lumbar radiculopathy st atus post lumbar fusion in October 2016, anxiety, essential tremor, and restless legs synd rajan presenting with nocturnal hypoxemia for evaluation of obstructive sleep apnea. He is a ccompanied by his , Gely. Patrice was hospitalized in [facility] for pulmonary embolism for 8 days in November 2016. They sa y he had a sleep study at Hospital and he was told that it was fine. There he was discharge d, he had an overnight oximetry on room air on December 13, 2016. It showed mean SPO2 at 86% , sarah SPO2 was 68%, and he had spent 407 minutes <= 88%. Started on oxygen 1.5 l/m at [facility]. He was referred to us for evaluation for sleep apnea, and he has discontinued oxygen 3 weeks ago. Patrice has snored for several years. His and him sleep in separate rooms because he kic ks during sleep, but his never noticed that he stops breathing during sleep. Denies aw akening from sleep with gasping or choking. He has history of Hernia and Acid Reflux, and t he Head of His Bed Is 4 inch Elevated. He occasionally Wakes up with Heartburn. He Sleeps on His Side. He Had Back Fusion Surgery in October 2016 and He Has Some Back D iscomfort, but He Is Not Sure This Is the Reason That He Doesn't Sleep on His Back. He usually doesn't have morning dry mouth, and rarely has morning headaches. He has some daytime fatigue, but denies excessive daytime sleepiness. He was retired in [facility] 2016. He would not get enough sleep at that time, and would get home and take long naps . However, since he has been retired, his stress decreased, and gets more sleep and does no t nap. He goes to bed between 8 and 9 PM. Sometimes he falls asleep quickly. Sometimes it takes 60-90 minutes for him to fall asleep. He does not have complaint about it, and says he goes to bed earlier because of his back discomfort, and he uses that time to stretch and relax before sleep. Once asleep, he wakes up once or twice for urination or no reason and he goes back to [facility] quickly. He wakes up between 4:30 and 7 AM, and usually feels rested. He does not take naps. He also has had symptoms of restless legs syndrome for a while. He describes it as kicks i n his legs or an urge to move his legs which improves by walking or moving his legs. It usu ally occurs in the evening before he goes to bedtime. It can disturb his sleep. It occurs 4-5 times per week. He was previously told that he probably had anemia. He is also on sert raline for his anxiety. He thinks that it has helped with his anxiety. He recently was started on pramipexole 0.5 mg in the evening, which somewhat helps. He also has essential tremor. His does not think that he has dream enactment, however, he kicks in sleep. ? [place] Sleepiness Scale: 5 out of 24 ( score >11 clinnically significant for sleepiness) . ? Patient denies: drowsy driving. ? - Insomnia Severity Index Score: 8 out of 28, suggesting subthreshold insomnia. 0-7 no clinically significant. 8-14 subthreshold insomnia 15-21 moderate insomnia 22-28 severe insomnia ADDITIONAL DATA: ? Chavez Depression Inventory: 2 ? Chavez Anxiety Inventory:17, consistent with moderate anxiety ? SF-36v2: Significant decline in PF, RP, BP, SF, RE PREVIOUS SLEEP STUDIES: none PAST MEDICAL HISTORY Past Medical History: Diagnosis Date Allergic rhinitis Anxiety 1999 Arthralgia of knee Patella, Tibia, Fibula Arthritis 2009 Benign prostatic hyperplasia without urinary obstruction Cervical radiculopathy C3-C7 Cervical spondylosis with myelopathy CHF (congestive heart failure) ([facility]) 11/2016 Clotting disorder ([facility]) 11/2016 Pulmonary embolisms Depression with anxiety GERD (gastroesophageal reflux disease) GI bleed 1999 Hypertension Left sided sciatica Low back pain Lumbar degenerative disc disease Lumbar facet arthropathy MULTILEVEL Lumbar spondylosis Osteoarthritis, generalized Restless leg syndrome Smokeless tobacco use Spondylolisthesis of lumbar region Tremor PAST SURGICAL HISTORY Past Surgical History: Procedure Laterality Date CERVICAL FUSION 06/2011 Dr. Luna; [facility] COLONOSCOPY 2010 EGD 1999 HERNIA REPAIR 08/03/2010 Herniorraphy; Krish; [place] INCISION AND DRAINAGE 2007 Thrombosed hemorrhoid. KNEE ARTHROSCOPY 2014 Dr. Brothers; [place] LUMBAR FUSION 01/2012 Dr. Luna; [facility] SPINE SURGERY TONSILLECTOMY AND ADENOIDECTOMY TYMPANOPLASTY TUBES VASECTOMY ALLERGIES No Known Allergies CURRENT MEDICATIONS Prior to Admission medications Medication Sig Start Date End Date Taking? Authorizing Provider acetaminophen ([facility] 8 HOUR PAIN RELIEF) 650 MG CR tablet Take by mouth. Historical Hernesto bee MD albuterol (PROAIR HFA) 90 mcg/puff inhaler Inhale 2 puffs into the lungs every 6 hours as n eeded for Wheezing. 03/14/17 Santi Dumont MD apixaban (ELIQUIS) 5 mg tablet Take 1 tablet by mouth 2 times daily. 01/31/17 Santi Hayes MD furosemide (LASIX) 40 mg tablet Take 1 tablet by mouth Daily. 01/31/17 Santi Dumont MD gabapentin (NEURONTIN) 300 mg capsule Take 1 capsule by mouth 4 times daily. 03/14/17 Marry Dumont MD lisinopril (PRINIVIL, ZESTRIL) 20 mg tablet Take 2 tablets by mouth Daily. 01/31/17 Santi Dumont MD loratadine (CLARITIN) 10 mg tablet Take by mouth Daily. Historical Provider, nadolol (CORGARD) 80 MG tablet Take 0.5 tablets by mouth Daily. 01/31/17 Eddie Gandhi omeprazole (PRILOSEC) 20 mg capsule Take 20 mg by mouth every morning (before breakfast). Historical Provider, POTASSIUM CHLORIDE PO Take 1 mEq by mouth Daily. Historical Provider, pramipexole (MIRAPEX) 0.5 MG tablet Take 1 tablet by mouth Daily. 01/31/17 Santi Dumont MD sertraline (ZOLOFT) 50 mg tablet Take 50 mg by mouth Daily. Historical Provider, terazosin (HYTRIN) 5 mg capsule Take 1 capsule by mouth Daily. 01/31/17 Santi Dumont MD SOCIAL HISTORY - Lives with his . - Occupation: retired. . Shift work: no - ETOH: rarely - Smoking: never smoker. Chewed tobacco and quit in 2010. - Caffeine use: one-two cups of coffee per day - Exercise: limited because of hip and back pain. - Eating habits: has been on Weight Watcher and trying to eat healthier. FAMILY HISTORY His parents snored and his grandmother had sleep apnea. REVIEW OF SYSTEMS Constitutional: No unexplained fevers, chills, sweats ENT: + nasal congestion. Card: No exertional substernal chest heaviness, Resp: + wheezing usually when he lays down GI: + constipation : + nocturia MS: + back and hip pain Neuro: + tremor Psych: + anxiety Heme: No easy bruising PHYSICAL EXAMINATION BP 140/80 | Pulse 56 | Resp 16 | Ht 1.778 m (5' 10") | Wt 112.9 kg (248 lb 14.4 oz) | SpO2 94% | BMI 35.71 kg/m Neck circumference inches: 17 GEN: Well developed well nourished, pleasant, NAD HEENT: Sclerae anicteric. No ptosis. Oropharyngeal exam reveals Modified Mallampati grade3 airway with No tonsils. Tongue does not have scalloping. There are some missing and filled teeth. Patient does have a high arched palate. CV: RRR, no m/r/g RESP: CTAB, no w/r/r EXT: No clubbing/cyanosis NEURO: A&Ox3, speech fluent. face symmetric, uvula/tongue midline. . Normal casual gait. PSYCH: Appropriate affect. ASSESSMENT AND PLAN 61 y.o. year male old with history of status post DVT and pulmonary embolism in December 08, GERD and h/o of hiatal hernia, hypertension, lumbar radiculopathy status post lumbar fus ion in October 2016, anxiety, essential tremor, and restless legs syndrome presenting with nocturnal hypoxemia for evaluation of obstructive sleep apnea. DICKSON: He has several symptoms and risk factors for obstructive sleep apnea. I discussed the m, and the pathophysiology of sleep apnea today, associated risks including heart attack an d stroke with untreated severe sleep apnea, and association between obstructive sleep apnea and hypertension, insulin resistance and diabetes, GERD, headaches, and mood and memory prob lems. discussed diagnosis via polysomnography / [id number] sleep testing. Today, I orde red a home sleep study, but informed him/her that if it was inconclusive, we will have to co nfirm it with diagnostic polysomnography. I also discussed treatment options for sleep apne a, including CPAP (gold standard), weight loss, mandibular advancement device. An appointmen t will be made a few days after the sleep study so that we can discuss the results of the sl eep study with patient. Restless legs syndrome: He has history of RLS and occurs 4-5 times per week. He is on sert raline which can exacerbate, but his anxiety is improved with sertraline and stopping it villa ht not be the best option. He was recently started on pramipexole 0.5 mg in the evening. I discussed the association between a low ferritin level and RLS. He has past history of ane shira. Currently, he denies any symptoms suggestive of blood loss including melena. I ordere d a ferritin level and if it was below 75, a trial of iron supplement should be started. He is going to add this to his other blood tests which will be done in [place] in early [place] h. Encouraged maintaining regular physical activity, and healthy eating habits. Nasal congestion: recommended regular salt water nasal irrigation. He has tried nasal spra ys in the past. Thank you for the opportunity to participate in this patient's care. I spent 60 minutes face to face with the patient, with over 50% spent in counseling and/or coordination of care regarding sleep apnea and restless legs syndrome. Portions of this chart may have been created with [email or web address] voice recognition software. Occasi onal wrong-word or sound-alike substitutions may have occurred due to the inherent acevedo itations of voice recognition software. Please read the chart carefully and recognize, using context, where these substitutions have occurred. Corinne Schwab, Medical As sisangelat - 03/20/2017 3:00 PM PSTFormatting of this note might be different from the origina l. 03/20/17 1400 Chavez Depression Inventory-II Depression Score 2 - Minimal depression Insomnia Severity Index Insomnia Severity Index 8 [place] Sleepiness Scale Sitting and reading 1 Watching TV 1 Sitting, inactive in a public place (e.g. a theatre or a meeting) 0 As a passenger in a car for an hour without a break 1 Lying down to rest in the afternoon when circumstances permit 2 Sitting and talking to someone 0 Sitting quietly after a lunch without alcohol 0 In a car, while stopped for a few minutes in traffic 0 Total score 5 SF-36v2 Score PF 23.09 RP 30.21 BP 26.52 GH 43.68 VT 46.66 SF 22.25 RE 31.8 MH 48.25 PCS 26.6 MCS 44.02 documented in this enco unter Plan of Treatment + +------+--------+ + + | Name | Type | Priori | Associated Diagnoses | Order Schedule | | | | ty | | | + +------+--------+ + + | Ferritin | Lab | Routin | RLS (restless legs | 1 Occurrences | | | | e | syndrome) | starting 03/20/2017 | | | | | | until 03/20/2018 | + +------+--------+ + + + + +--------+ + + | Name | Type | Priori | Associated Diagnoses | Order Schedule | | | | ty | | | + + +--------+ + + | * [facility] - | Outpatient | Routin | DICKSON (obstructive | Ordered: 03/20/2017 | | AMB Referral | Referral | e | sleep apnea) | | + + +--------+ + + documented as of this encounter Visit Diagnoses + + | Diagnosis | + + | RLS (restless legs syndrome) - Primary Restless legs syndrome (RLS) | + + | DICKSON (obstructive sleep apnea) Obstructive sleep apnea (adult) (pediatric) | + + documented in this encounter
--- OUTSIDE RECORDS SUMMARY | ~2019-11-12 | XMS | Encounter Summary ---
Demographics + + + | Address | [address] | | | [place] [address] | + + + | Home Phone | | + + + | Preferred Language | Unknown | + + + | Marital Status | | + + + | Adventist Affiliation | Unknown | + + + [...] Team Providers + +------+ + | Care Joy Operator Name | Role | Phone | + +------+ + | Santi Dumont MD | PCP | | + +------+ + Encounter Details +--------+ + + + + | Date | Type | Department | Care Team | Description | +--------+ + + + + | 01/31/ | Hospital | [facility] | Santi Dumont MD | Left hip pain | | 2017 | Encounter | [facility] | [address] [facility] | | | | | [address] [place] | [place], [place] | | | | | [place], [place] | [address] | | | | | [address] | | | | | | [phone] | | | +--------+ + + + [...] puffs into | | 0 | | 01/24/201 | | HFA) 90 mcg/puff | the [...] | Routin | Left hip pain | 1 Occurrences | | | | e | | starting 01/31/2017 | | | | | | until 01/31/2017 | + +---------+--------+ + + documented as of this encounter Visit Diagnoses + + | Diagnosis | + + | Left hip pain Pain in joint, pelvic region and thigh | + + documented in this encounter"
--- OUTSIDE RECORDS SUMMARY | ~2019-11-12 | XMS | Encounter Summary ---
Demographics + + + | Address | [address] | | | [place] [address] | + + + | Home Phone | | + + + | Preferred Language | Unknown | + + + | Marital Status | | + + + | Islam Affiliation | Unknown | + + + | Race | White | + + + | Ethnic Group | Not or | + + + Author + + + | Author | [facility] | | | and Brianana | + + + | Organization | [facility] | | | [...] Team Providers + +------+ + | Care Cnc Service Technician Name | Role | Phone [...] Description | +--------+--------+ + + + | 12/28/ | Refill | [facility] [place] [facility] | Santi Dumont MD | Medication Refill | | 2017 | | MEDICINE [address] [place] [address] | [address] [place] [address] | | | | | [address] [place], | [place], [place] | | | | | [place] [address] | [address] | | | | | [phone] | | | +--------+--------+ + + + [...]
--- OUTSIDE RECORDS SUMMARY | ~2019-11-12 | XMS | Encounter Summary ---
Demographics + + + | Address | [address] | | | [place] [address] | + + + | Home Phone | | + + + | Preferred Language | Unknown | + + + | Marital Status | | + + + | Baptism Affiliation | Unknown | + + + | Race | White | + + + | Ethnic Group | Not or | + + + Author + + + | Author | [facility] | | | and [place]ana | + + + | Organization | [facility] | | [...] Team Providers + +------+ + | Care Radial Drill Press Set Up Operator Name | Role | Phone | [...] | | | [address] [place] | [place] [address] | | | | | [place] [address] | | | | | | [phone] | | | +--------+ + + + [...] XR HIP RIGHT 2-3 | Routin | 07/24/2019 | | Results for this | | VIEWS | e | 12:00 AM | | procedure are in the | | | | PDT | | results section. | + +--------+ + + + documented in this encounter Results XR Hip Right 2-3 Views (07/24/2019 12:00 AM PDT) + + | Specimen [...]
--- OUTSIDE RECORDS SUMMARY | ~2019-11-12 | XMS | Encounter Summary ---
Demographics + + + | Address | [address] | | | [place] [address] | + + + | Home Phone [...] Team Providers + +------+ + | Care Plastic Outfitter Name | Role | Phone | + +------+ + | Isaac Miranda MD | PCP | | + +------+ + Encounter Details +--------+ + + + + | Date | Type | Department | Care Team | Description | +--------+ + + + + | 02/14/ | Document-Sc | Health Information | Unknown . | | | 2011 | anned | Services [address] | | | | | [address] | | | | | | Mailcode: [id number] | | | | | | [facility] | | | | | | [place], [place] | | | | | | [address] | | | | | | [phone] | | | +--------+ + + + [...] + + + | RADIOLOGY | | 02/15/2012 | | Results for this | | | | 12:00 AM | | procedure are in the | | | | PST | | results section. | + +--------+ + + + documented in this encounter Results RADIOLOGY (02/15/2012 12:00 AM PST) + + + | Narrative | Performed At | + + + | | | + + + documented in this encounter Visit Diagnoses Not on filedocumented in this encounter"
--- OUTSIDE RECORDS SUMMARY | ~2019-11-12 | XMS | Encounter Summary ---
Demographics + + + | Address | [address] | | | [place] [address] | + + + | Home Phone | | + + + | Preferred Language | Unknown | + + + | Marital Status | | + + + | Episcopalian Affiliation | Unknown | + + + [...] Team Providers + +------+ + | Care Field Sales Representative Name | Role | Phone | + +------+ + | Santi Dumont MD | PCP | | + +------+ + Encounter Details +--------+ + + + + | Date | Type | Department | Care Team | Description | +--------+ + + + + | 05/08/ | Episode | [facility] [place] | [place], | | | 2017 | Changes | ORTHOPEDIC SURGERY | Operator Weapon Locating Radar | | | | | [address] | | | | | | [place] | | | | | | [address] | | | | | | [phone] | | | +--------+ + + + [...]
--- OUTSIDE RECORDS SUMMARY | ~2019-11-12 | XMS | Encounter Summary ---
Demographics + + + | Address | [address] | | | [place] [address] | + + + | Home Phone [...] Team Providers + +------+ + | Care Infantry Unit Leader Name | Role | Phone | + +------+ + | Santi Dumont MD | PCP | | + +------+ + Encounter Details +--------+ + + + + | Date | Type | Department | Care Team | Description | +--------+ + + + + | 03/19/ | Orders Only | [facility] | [facility] | Primary | | 2018 | | ORTHOPEDIC SURGERY | [address] | osteoarthritis of | | | | [address] [place] | [address] [place] | left hip (Primary | | | | [place] | [place] [address] | Dx); Pain of left | | | | [address] | [phone] | hip joint | | | | [phone] | | | +--------+ + + + [...] joint | + + documented in this encounter"
--- OUTSIDE RECORDS SUMMARY | ~2019-11-12 | XMS | Encounter Summary ---
Demographics + + + | Address | [address] | | | [place] [address] | + + + | Home Phone [...] Team Providers + +------+ + | Care Cook Supervisor Name | Role | Phone | + +------+ + | Santi Dumont MD | PCP | | + +------+ + Reason for Visit + +--------+ + | Reason | Onset | Comments | | | Date | | + +--------+ + | Hospital Discharge | 08/17/ | | | Follow-up | 2019 | | + +--------+ + Encounter Details +--------+ + + + + | Date | Type | Department | Care Team | Description | +--------+ + + + + | 08/17/ | Telephone | [facility] | Radha Ricks, | Hospital Discharge | | 2019 | | MED CTR SURGICAL | RN | Follow-up | | | | [address] | | | | | | [place] [address] | | | | | | [phone] | | | +--------+ + + + [...] Telephone Encounter - Radha Ricks RN - 08/18/2019 12:22 PM PDT Patient Name: Patrice Interiano : 1955 Gender: male Status Post Right total hip Surgery date: 08/13/2019 Surgeon: Dr. Chand 2 day Post Discharge call Pain Controled:yes Pain 1-10:1 Using OTC for pain: Acetaminaphen Narcotics: Tramadol Back to taking previous medications?: yes. Pt. Monitors his blood pressure as prescribed/o rdered by pcp for lisinopril and terazosin VTE/DVT prophylaxis: eliquis BID Calf pain: No Appetite:good Nausea:no Urinary Output:adequate Bowel Movement: Had bowel movement today, bowel movement was hard, pt. Started on colace. Bowel Regiment:Colace BID Pt. Understanding how to safely ambulate?: Using walker:yes How often out of bed: Up ambulating every hour for 10min Do breathing exercises?:yes . Pt. Still on oxygen from Home Health when sleeping. Incision description:Dressing was changed today at Dr. Irby office. Pt. Reports it is lo oking good and will return on 08/21/2019 for judson to be removed. How are you caring for you dressing:leaving dressing in place till post op office visit Swelling:mild Icing:yes Elevating:yes Doing home exercises:yes Fever:no Difficulty with showering:no Out Pt.Therapy: No Post Op appt.: 08/21/2019 Any need to call surgeon:no, was just in today for dressing change. Pt. He has my phone numbers and will call me if he needs anything further. Patient education reinforced using Teach-Back Method, review of discharge instructions incl uding s/s of potential complications to watch for and who to contact for further questions o r concerns. Radha Ricks RN RN Nurse Navigator for Total Joints elephone Encounter - Radha Ricks RN - 08/18/2019 8:52 AM PDT Patient Name: Patrice Interiano : 1955 Gender: male Status Post right total hip Surgery date:08/13/2019 Surgeon: Dr. Chand 2 day Post Discharge call No answer, left voice message Radha Ricks RN RN Nurse Navigator for Total Joints documented in this en counter Plan of Treatment Not on filedocumented as of this encounter Visit Diagnoses Not on filedocumented in this encounter"
--- OUTSIDE RECORDS SUMMARY | ~2019-11-12 | XMS | Encounter Summary ---
Demographics + + + | Address | [address] | | | [place] [address] | + + + | Home Phone | | + + + | Preferred Language | Unknown | + + + | Marital Status | | + + + | Sikh Affiliation | Unknown | + + + | Race | White | + + + | Ethnic Group | Not or | + + + Author + + + | Author | [facility] | | | and [place] | + + + | Organization | [facility] | | | and [...] Team Providers + +------+ + | Care Process Chemist Name | Role | Phone | + +------+ + | Santi Dumont MD | PCP | | + +------+ + Reason for Visit + +--------+ + | Reason | Onset | Comments | | | Date | | + +--------+ + | Medication Refill | | | + +--------+ + | Medication Refill | 07/03/ | | | | 2018 | | + +--------+ + Encounter Details +--------+--------+ + + + | Date | Type | Department | Care Team | Description | +--------+--------+ + + + | 07/03/ | Refill | [facility] | Santi Dumont MD | Medication Refill; | | 2018 | | MEDICINE [address] | [address] [place] [address] | Medication Refill | | | | [place], | [place] | | | | | [place] [address] | [id number] | | | | | [phone] | | | +--------+--------+ + + + [...]
--- OUTSIDE RECORDS SUMMARY | ~2019-11-12 | XMS | Encounter Summary ---
Demographics + + + | Address | [address] | | | [place] [address] | + + + | Home Phone | | + + + | Preferred Language | Unknown | + + + | Marital Status | | + + + | Protestant Affiliation | Unknown | + + + | Race | White | + + + | Ethnic Group | Not or | + + + Author + + + | Author | [facility] | + + + | Organization | [facility] | + + + | Address | Unknown | + + + | Phone | Unavailable | + + + Support + + +---------+ + | Name | Relationship | Address | Phone | + + +---------+ + | Gely Interiano | ECON | Unknown | | + + +---------+ + Care Team Providers + +------+ + | Care Service Desk Director Name | Role | Phone | + +------+ + | Isaac Miranda MD | PCP | | + +------+ + Encounter Details +--------+ + + + + | Date | Type | Department | Care Team | Description | +--------+ + + + + | 09/25/ | Document-Sc | Health Information | Unknown . | | | 2011 | anned | Services [id number] | | | | | [address] | | | | | | Mailcode: [id number] | | | | | | [facility] | | | | | | [place], [place] | | | | | | [address] | | | | | | [phone] | | | +--------+ + + + [...] + + + | RADIOLOGY | | 09/26/2011 | | Results for this | | | | 12:00 AM | | procedure are in the | | | | PDT | | results section. | + +--------+ + + + documented in this encounter Results RADIOLOGY (09/26/2011 12:00 AM PDT) + + + | Narrative | Performed At | + + + | | | + + + documented in this encounter Visit Diagnoses Not on filedocumented in this encounter"
--- OUTSIDE RECORDS SUMMARY | ~2019-11-12 | XMS | Encounter Summary ---
Demographics + + + | Address | [address] | | | [place] [address] | + + + | Home Phone | | + + + | Preferred Language | Unknown | + + + | Marital Status | | + + + | Scientology Affiliation | Unknown | + + + [...] Team Providers + +------+ + | Care Tugboat Engineer Name | Role | Phone | + +------+ + | Isaac Miranda MD | PCP | | + +------+ + Encounter Details +--------+ + + + + | Date | Type | Department | Care Team | Description | +--------+ + + + + | 08/20/ | Hospital | [facility] | Mahendra Luna MD | S/P cervical spinal | | 2013 | Encounter | MED CTR XRAY [address] | fusion; | | | | [place] | [place] [address] | Spondylolisthesis of | | | | [place] [address] | [phone] | lumbar region | | | | [phone] | | | +--------+ + + + [...] | | Take 1-2 tablets by | 90 | 0 | 05/01/19 | | | oxyCODONE-acetaminop | mouth every 4 hours | tablet | | 13 | 4 | | hen (PERCOCET) 5-325 | as needed for Pain. | | [...] +---------+ + + | traMADol (ULTRAM) | Take 1 tablet by | 60 | 2 | 05/22/19 | | | 50 mg tablet | mouth every 8 hours | tablet | | 13 | 4 | | | as needed for Pain. | | [...] LUMBAR SPINE 2 OR | Routin | 08/20/2012 | Spondylolisthesis | Results for this | | 3 VW | e | 1:46 PM | of lumbar region | procedure are in the | | | | PDT | | results section. | + +--------+ + + + | XR CERVICAL SPINE 2 | Routin | 08/20/2012 | S/P cervical | Results for this | | OR 3 VIEWS | e | 1:40 PM | spinal fusion | procedure are in the | | | | PDT | | results section. | + +--------+ + + + documented in this encounter Results XR Lumbar Spine 2 or 3 Vw (08/20/2012 1:46 PM PDT) + + | Specimen | + + | | + + + + + | Narrative | Performed At | + + + | [facility] | [place] | | Department [address] [place] [address] | [facility] | | [ rep [address]] [ rep [facility] | | [facility]] Signed | - IMAGING | | | | | Patient Name: PATRICE INTERIANO Victorino Physician: | | | : 1955 Age: 57 Sex: M Unit #: [id number] | | | Exam Date: 08/20/12 Location: [facility] | | | Report #: [id number] Page: | | | %(RAD)RES..mtdd.print.filter("pg") of %(RAD) | | | RES..mtdd.print.filter("tpg") | | | | | | Accession Number: [id number] | | | LUMBAR SPINE CLINICAL HISTORY: [...] Transcribed Date/Time: 08/20/2012 | | | 15:43 Loop Drier Operator: <<Signature | | | on File>> | | | | | | Dickson Armenta MD08/20/12 1734 <Electronically signed by | | | Dickson Armenta MD> Dickson Armenta MD 08/20/12 | | | [address] D[address] Operator: K[place]adie[place] Yeypenbbeqefw91/02/13 1543 | | | Mahendra Luna MD | | + + + + + + + + | Performing | Address | City/State/Zipcode | Phone Number | | Organization | | | | + + + + + | [facility] | [address] | [place] | [phone] | | [facility] | | [address] | | | - IMAGING | | | | + + + + + XR Cervical Spine 3 Vws or Less (08/20/2012 1:40 PM PDT) + + | Specimen | + + | | + + + + + | Narrative | Performed At | + + + | [facility] | [place] | | Department [address] [facility] | [facility] | | [ rep [address]] [ rep [facility] | | st zip] Signed | - IMAGING | | | | | Patient Name: PATRICE INTERIANO Physician: | | | ZULEYMA. : 1955 Age: 57 Sex: M Unit #: [id number] | | | Exam Date: 08/20/12 Location: [facility] | | | Report #: [id number] Page: | | | %(RAD)RES..mtdd.print.filter("pg") of %(RAD) | | | RES..mtdd.print.filter("tpg") | | | | | | Accession Number: [id number] | | | CERVICAL SPINE CLINICAL HISTORY: [...] Transcribed | | | Date/Time: 08/20/2012 15:36 Loop Drier Operator: | | | <<Signature on File>> | | | | | | Dickson Armenta MD08/20/12 1824 <Electronically signed by | | | Dickson Armenta MD> Dickson Armenta MD 08/20/12 | | | [address] D[address] Operator: [place] Odgrnefkxtlhm46/02/13 1536 | | | Mahendra Luna MD | | + + + + + + + + | Performing | Address | City/State/Zipcode | Phone Number | | Organization | | | | + + + + + | [facility] | [address] | [place], [place] | [phone] | | [facility] | | [address] | | | - IMAGING | | | | + + + + + documented in this encounter Visit Diagnoses + + | Diagnosis | + + | S/P cervical spinal fusion Arthrodesis status | + + | Spondylolisthesis of lumbar region Acquired spondylolisthesis | + + documented in this encounter
--- OUTSIDE RECORDS SUMMARY | ~2019-11-12 | XMS | Encounter Summary ---
Demographics + + + | Address | [address] | | | [place] [address] | + + + | Home Phone | | + + + | Preferred Language | Unknown | + + + | Marital Status | | + + + | Mandaeism Affiliation | Unknown | + + + [...] Providers + +------+ + | Care Service Crew Supervisor Name | Role | Phone | [...] Description | +--------+--------+ + + + | 01/03/ | Refill | [facility] | Santi Dumont MD | Medication Refill | | 2019 | | MEDICINE [address] [place] [address] | [address] [place] [address] | | | | | [address] [place], | [place], [place] | | | | | [place] [address] | [phone] | | | | | [phone] | | | +--------+--------+ + + + [...]
--- OUTSIDE RECORDS SUMMARY | ~2019-11-12 | XMS | Encounter Summary ---
Demographics + + + | Address | [address] | | | [place] [address] | + + + | Home Phone [...] Team Providers + +------+ + | Care Non Destructive Testing Inspector Name | Role | Phone | [...] Description | +--------+--------+ + + + | 10/24/ | Refill | [facility] | Shaan Coughlin MD | Medication Refill | | 2019 | | MEDICINE [address] [place] [address] | [address] [facility] | | | | | [place], | [facility] [place] | | | | | [place] [address] | [address] | | | | | [phone] | | | +--------+--------+ + + + [...]
--- OUTSIDE RECORDS SUMMARY | ~2019-11-12 | XMS | Encounter Summary ---
Demographics + + + | Address | [address] | | | [place] [address] | + + + | Home Phone | | + + + | Preferred Language | Unknown | + + + | Marital Status | | + + + | Christian Affiliation | Unknown | + + + | Race | White | + + + | Ethnic Group | Not or | + + + Author + + + | Author | [facility] | | | and [place]ana | + + + | Organization | [facility] | | | [...] Team Providers + +------+ + | Care Manager Managed Backup Services Name | Role | Phone | + +------+ + | Santi Dumont MD | PCP | | + +------+ + Reason for Referral Evaluate & Treat (Routine) + + + + + + + | Status | Reason | Specialty | Diagnoses / | Referred By | Referred To | | | | | Procedures | Contact | Contact | + + + + + + + | Authorized | Specialty | Surgery / | Diagnoses | Barga, | Victor Manuel, | | | Services | General | Inguinal | Santi Arias MD | David Jackson MD, | | | Required | Surgery | swelling | [address] | [address] | [address] | | | | | | [place], | [place], | | | | | | [place] [address] | [place] [address] | | | | | | Phone: | Phone: | | | | | | [phone] | [phone] | | | | | | Fax: | Fax: | | | | | | [phone] | [phone] | + + + + + + + Reason for Visit + + + | Reason | Comments | + + + | Groin Pain | Right groin pain | + + + Encounter Details +--------+---------+ + + + | Date | Type | Department | Care Team | Description | +--------+---------+ + + + | 03/03/ | Office | [facility] | Santi Dumont MD | Inguinal swelling | | 2020 | Visit | MEDICINE [address] [place] [address] | [address] [place] [address] | (Primary Dx); SOB | | | | [address], | [place] | (shortness of | | | | [place] [address] | [address] | breath); Needs flu | | | | [phone] | | shot; Heart failure, | | | | | | unspecified HF | | | | | | chronicity, | | | | | | unspecified heart | | | | | | failure type (HCC) | +--------+---------+ + + + Social [...] + + + | Blood Pressure | 110/60 | 03/03/2019 8:12 AM | | | | | PST | | + + + + + | Pulse | 76 | 03/03/2019 8:12 AM | | | | | PST | | + + + + + | Temperature | 36.8 C (98.2 F) | 03/03/2019 8:12 AM | | | | | PST | | + + + + + | Respiratory Rate | 20 | 03/03/2019 8:12 AM | | | | | PST | | + + + + + | Oxygen Saturation | 96% | 03/03/2019 8:12 AM | | | | | PST | | + + + + + | Inhaled Oxygen | - | - | | | Concentration | | | | + + + + + | Weight | 122.9 kg (270 lb | 03/03/2019 8:12 AM | | | | 15.1 oz) | PST | | + + + + + | Height | 177.8 cm (5' 10") | 03/03/2019 8:12 AM | | | | | PST | | + + + + + | Body Mass Index | 38.88 | 03/03/2019 8:12 AM | | | | | PST | | + + + + + documented in this encounter Patient Instructions Patient Instructions Santi Dumont MD - 03/03/2019 8:10 AM PSTFlu shot today Lab & X-ray today Referral to Dr. Rush for opinion documented in this encounter Progress Notes Santi Dumont MD - 03/03/2019 8:10 AM PST 03/03/2019 Patrice Interiano 1955 History: Patrice Interiano is a 63 y.o. male here for evaluation of groin swelling and shortness of b reath For 1 month he has noted right groin pain without swelling, and now recently thinks that sw elling has occurred. He has a past history of right inguinal hernia repair. Pains are grea test when he stands up straight. Standing up makes him feel short of breath at times. He a lso has mild exertional dyspnea. He has gained 15 pounds of weight in the past 9 months. Cecilia arias denies chest pain, cough or hemoptysis. He is chronically anticoagulated with Eliquis for history of pulmonary embolism. Patient Active Problem List Diagnosis Cervical spondylosis with myelopathy Cervical radiculopathy Spondylolisthesis of lumbar region Lumbar degenerative disc disease Hypertension 2015 GERD (gastroesophageal reflux disease) Anxiety Essential tremor Restless leg syndrome Lumbar radiculopathy Lumbar spinal stenosis Saddle embolus of pulmonary artery with acute cor pulmonale 2017 Acute deep vein thrombosis (DVT) of left lower extremity 2017 Obstructive sleep apnea with nocturnal hypoxemia [facility] health care Class 2 severe obesity due to excess calories with serious comorbidity and body mass in dex (BMI) of 35.0 to 35.9 in adult Abnormal transaminases Current Outpatient Medications Medication Sig Dispense Refill acetaminophen (TYLENOL) 500 mg tablet Take 500 mg by mouth every 6 hours as needed for Pain. albuterol (PROAIR HFA) 90 mcg/puff inhaler Inhale 2 puffs into the lungs every 6 hours as needed for Wheezing. 6.7 g 3 ELIQUIS 5 MG tablet TAKE ONE TABLET BY MOUTH TWICE DAILY 60 tablet 3 lisinopril-hydrochlorothiazide (PRINZIDE,ZESTORETIC) 20-25 MG per tablet Take 2 tablets by mouth Daily. 180 tablet 2 loratadine (CLARITIN) 10 mg tablet Take 10 [...] TABLET BY MOUTH EVERY DAY 30 tablet 2 sertraline (ZOLOFT) 50 mg tablet TAKE ONE TABLET BY MOUTH EVERY DAY 30 tablet 2 terazosin (HYTRIN) 5 mg capsule TAKE ONE CAPSULE BY MOUTH EVERY DAY 30 capsule 5 tiZANidine (ZANAFLEX) 4 mg tablet Take 1 tablet by mouth every 6 hours as needed for Mu scle spasms. 30 tablet 0 No current facility-administered medications for this visit. No Known Allergies Review of Systems Respiratory: Negative for shortness of breath. Cardiovascular: Negative for chest pain. Musculoskeletal: Right groin pain and swelling Physical Exam: BP 110/60 | Pulse 76 | Temp 36.8 C (98.2 F) (Tympanic) | Resp 20 | Ht 1.778 m (5' 1 0") | Wt 122.9 kg (270 lb 15.1 oz) | SpO2 96% | BMI 38.88 kg/m General: obese man in no distress. HEENT: Lungs: clear to auscultation & percussion. Respirations unlabored. Heart: regular rhythm, no murmur. Abdomen: Obese, soft, no umbilical hernia. : Normal circumcised phallus. Mild bulging in the right inguinal area with no palpable h ernia Extremities: no peripheral edema. Right hip has good ROM Psych: normal affect. Assessment: 1. Inguinal swelling AMB REFERRAL TO [facility] [place] [facility] 2. SOB (shortness of breath) Comprehensive Metabolic Panel CBC with Differential B Type Natriuretic Peptide XR Chest PA and Lateral 3. Needs flu shot Influenza *PF 3 yr or >, Quadrivalent PSKT or Vial 4. Heart failure, unspecified HF chronicity, unspecified heart failure type (HCC) B Type N atriuretic Peptide Plan: 1. Flu vaccine advised and administered today 2. Recommend general surgery referral for evaluation of right inguinal swelling which is s uspicious for an inguinal hernia though I am unable to palpate a hernia specifically. 3. Will check chest x-ray for incipient heart failure and check BNP. He has a past histor y of right heart failure with a saddle pulmonary embolism. 4. Continue long-term anticoagulation with Eliquis. Followup Instructions: Wellness exam in April, Santi Dumont MD, personally performed the services described in this documentation as scribed by Maria Teresa Tejeda M.A in my presence, and the documentation is both accurate and com plete. Santi Dumont MD 03/03/2019 documented in this enc ounter Plan of Treatment + + +--------+ + + | Name | Type | Priori | Associated Diagnoses | Order Schedule | | | | ty | | | + + +--------+ + + | AMB REFERRAL TO [facility] | Outpatient | Routin | Inguinal swelling | Expected: 03/03/2019 | | [facility] | Referral | e | | (Approximate), | | | | | | Expires: 03/02/2020 | + + +--------+ + + documented as of this encounter Results XR Chest PA and [...] EPICARDIAL FAT. Dictated and Signed by: Leander Hancock MD Electronically signed: 03/03/2019 12:54 PM [...] +---------+ + + B Type Natriuretic Peptide (03/03/2019 9:17 AM PST) + + + + + + | Component | Value | Ref Range | Performed | Pathologist | | | | | At | Signature | + + + + + + | BNP | 31Comment: New method in | <100 pg/mL | [facility] | | | | use as of April 17, | | [facility] | | | | 2018. Check reference | | MEDICAL | | | | range for changes.Some | | CENTER - | | | | analytes show | | LABORATORY | | | | significant variation | | | | | | from the previous | | | | | | method.It may be | | | | | | necessary to set a new | | | | | | baseline for this | | | | | | analyte. | | | | + + + + + + + + | Specimen | + + | Blood | + + + + + + + | Performing | Address | City/State/Zipcode | Phone Number | | Organization | | | | + + + + + | [facility] | [address] | [place] | [phone] | | [facility] | | [address] | | | - LABORATORY | | | | + + + + + CBC with Differential (03/03/2019 9:17 AM PST) + +-------+ + + + | Component | Value | Ref Range | Performed | Pathologist | | | | | At | Signature | + +-------+ + + + | White Blood | 5.5 | 4.0 - 11.0 K/uL | [facility] | | | Cells | | | [facility] | | | | | | MEDICAL | | | | | | CENTER - | | | | | | LABORATORY | | + +-------+ + + + | Red Blood | 4.98 | 4.30 - 5.70 | [facility] | | | Cells | | M/uL | [facility] | | | | | | MEDICAL | | | | | | CENTER - | | | | | | LABORATORY | | + +-------+ + + + | Hemoglobin | 15.2 | 13.5 - 18.0 | [facility] | | | | | g/dL | [facility] | | | | | | MEDICAL | | | | | | CENTER - | | | | | | LABORATORY | | + +-------+ + + + | Hematocrit | 46.5 | 40.0 - 51.0 % | [facility] [...] +-------+ + + + | MCH | 30.5 | 28.0 - 35.0 pg | [facility] | | | | | | [facility] | | | | | [facility] | | | | | | CENTER - | | | | | | LABORATORY | | + +-------+ + + + | MCHC | 32.7 | 32.0 - 36.0 | [facility] | | | | | g/dL | [facility] | | | | | | MEDICAL | | | | | | CENTER - | | | | | | LABORATORY | | + +-------+ + + + | RDW-CV | 13.1 | <15.0 % | [facility] | | | | | | [facility] | | | | | | MEDICAL | | | | | | CENTER - | | | | | | LABORATORY | | + +-------+ + + + | RDW-SD | 44.7 | 35.1 - 46.3 fL | [facility] | | | | | | [facility] | | | | | | [facility]ICAL | | | | | | CENTER - | | | | | | LABORATORY | | + +-------+ + + + | Platelet | 189 | 140 - 440 K/uL | [facility] | | | Count | | | [facility] | | | | | | MEDICAL | | | | | | CENTER - | | | | | | LABORATORY | | + +-------+ + + + | MPV | 9.5 | 6.5 - 12.4 fL | [facility] | | | | | | [facility] | | | | | | MEDICAL | | | | | | CENTER - | | | | | | LABORATORY | | + +-------+ + + + | % | 59.9 | 45.0 - 82.0 % | [facility] | | | Neutrophils | | | [facility] | | | | | | MEDICAL | | | | | | CENTER - | | | | | | LABORATORY | | + +-------+ + + + | % | 28.5 | 20.0 - 45.0 % | [facility] | | | Lymphocytes | | | [facility] | | | | | | MEDICAL | | | | | | CENTER - | | | | | | LABORATORY | | + +-------+ + + + | % Monocytes | 8.7 | 4.0 - 12.0 % | [facility] | | | | | | [facility] | | | | | | MEDICAL | | | | | | CENTER - | | | | | | LABORATORY | | + +-------+ + + + | % | 2.0 | 0.0 - 5.0 % | [facility] | | | Eosinophils | | | [facility] | | | | | | MEDICAL | | | | | | CENTER - | | | | | | LABORATORY | | + +-------+ + + + | % Basophils | 0.7 | 0.0 - 1.0 % | [facility] | | | | | | [facility] | | | | | | MEDICAL | | | | | | CENTER - | | | | | | LABORATORY | | + +-------+ + + + | % Immature | 0.2 | 0.0 - 0.4 % | [facility] | | | Granulocyte | | | [facility] | | | s | | | MEDICAL | | | | | | CENTER - | | | | | | LABORATORY | | + +-------+ + + + | Absolute | 3.30 | 1.80 - 8.50 | [facility] | | | Neutrophils | | K/uL | [facility] | | | | | | MEDICAL | | | | | | CENTER - | | | | | | LABORATORY | | + +-------+ + + + | Absolute | 1.57 | 0.60 - 3.20 | [facility] | | | Lymphocytes | | K/uL | [facility] | | | | | | [facility]ICAL | | | | | | CENTER - | | | | | | LABORATORY | | + +-------+ + + + | Absolute | 0.48 | 0.00 - 1.00 | [facility] | | | Monocytes | | K/uL | [facility] | | | | | | [facility]ICAL | | | | | | CENTER - | | | | | | LABORATORY | | + +-------+ + + + | Absolute | 0.11 | 0.00 - 0.40 | [facility] | | | Eosinophils | | K/uL | [facility] | | | | | | MEDICAL | | | | | | CENTER - | | | | | | LABORATORY | | + +-------+ + + + | Absolute | 0.04 | 0.00 - 0.10 | [facility] | | | Basophils | | K/uL | [facility] | | | | | | MEDICAL | | | | | | CENTER - | | | | | | LABORATORY | | + +-------+ + + + | Absolute | 0.01 | 0.00 - 0.03 | [facility] | | | Immature | | K/uL | [facility] | | | Granulocyte | | | MEDICAL | | | s | | | CENTER - | | | | | | LABORATORY | | + +-------+ + + + | % nRBC | 0 | 0 - 2 per 100 | [facility] | | | | | WBCs | [facility] | | | | | | MEDICAL | | | | | | CENTER - | | | | | | LABORATORY | | + +-------+ + + + | Absolute | 0.00 | 0.00 - 0.01 | [facility] | | | nRBC | | K/uL | [facility] | [...] [address] | [place] | [phone] | | [facility] | | [address] | | | - LABORATORY | | | | + + + + + Comprehensive Metabolic Panel (03/03/2019 9:17 AM PST) + + + + + [...] + + + + | K | 3.7 | 3.4 - 5.1 | [facility] | | | | | mmol/L | [facility] | | | | | | MEDICAL | | | | | | CENTER - | | | | | | LABORATORY | | + + + + + + | Cl | 100 | 98 - 107 mmol/L | [facility] | | | | | | [facility] | | | | | | MEDICAL | | | | | | CENTER - | | | | | | LABORATORY | | + + + + + + | CO2 | 31 | 20 - 31 mmol/L | [facility] | | | | | | [facility] | | | | | | MEDICAL | | | | | | CENTER - | | | | | | LABORATORY | | + + + + + + | Anion Gap | 7 | 3 - 16 mmol/L | [facility] | | | | | | [facility] | | [facility] | | | MEDICAL | | | | | | CENTER - | | | | | | LABORATORY | | + + + + + + | Glucose | 108 (H) | 60 - 106 mg/dL | [facility] | | | | | | [facility] | | | | | | MEDICAL | | | | | | CENTER - | | | | | | LABORATORY | | + + + + + + | BUN | 17 | 9 - 23 mg/dL | [facility] | | | | | | [facility] | | | | | | MEDICAL | | | | | | CENTER - | | | | | | LABORATORY | | + + + + + + | Creatinine | 1.20 | 0.70 - 1.30 | [facility] | | | | | mg/dL | [facility] | | | | | | MEDICAL | | | | | | CENTER - | | | | | | LABORATORY | | + + + + + + | eGFR, | >60Comment: GLOMERULAR | >=60 | [facility] | | | non- | FILTRATION | mL/min/1.73m2 | [facility] | | | [place] | RATE,ESTIMATED | | MEDICAL | | | | mL/min/1.47a4Kijy than | | CENTER - | | [...] + + + + | Calcium | 9.3 | 8.7 - 10.4 | [facility] | | | | | mg/dL | [facility] | | | | | | MEDICAL | | | | | | CENTER - | | | | | | LABORATORY | | + + + + + + | Albumin | 4.7 | 3.2 - 4.8 g/dL | [facility] | | | | | | [facility] | | | | | | MEDICAL | | | | | | CENTER - | | | | | | LABORATORY | | + + + + + + | Bilirubin | 0.9 | 0.3 - 1.2 mg/dL | [facility] [...] + + + + | AST | 42 (H) | 0 - 34 U/L | [facility] | | | | | | [facility] | | | | | | MEDICAL | | | | | | CENTER - | | | | | | LABORATORY | | + + + + + + | ALT | 69 (H) | 10 - 49 U/L | [facility] | | | | | | [facility] | | | | | | MEDICAL | | | | | | CENTER - | | | | | | LABORATORY | | + + + + + + | Alkaline | 51 | 46 - 116 U/L | [facility] | | | Phosphatase | | | [facility] | | | | | | MEDICAL | | | | | | CENTER - | | | | | | LABORATORY | | + + + + + + | Globulin | 1.9 (L) | 2.1 - 3.8 g/dL | [facility] | | | | | | [facility] | | | | | | MEDICAL | | | | | | CENTER - | | | | | | LABORATORY | | + + + + + + | Albumin/Julianna | 2.5 (H) | 0.8 - 1.9 | [facility] | | | bulin Ratio | | | [facility] | | | | | | MEDICAL | | | | | | CENTER - | | | | | | LABORATORY | | + + + + + + | BUN/Creatin | 14.2 | | [facility] | | | ine [...] + + | [facility] | [address] | [place] | [phone] | | [facility] | | [address] | | | - LABORATORY | | | | + + + + + documented in this encounter Visit Diagnoses + + | Diagnosis | + + | Inguinal swelling - Primary Swelling of limb | + + | SOB (shortness of breath) Shortness of breath | + + | Needs flu shot Need for prophylactic vaccination and inoculation against influenza | + + | Heart failure, unspecified HF chronicity, unspecified heart failure type (HCC) | + + documented in this encounter
--- OUTSIDE RECORDS SUMMARY | ~2019-11-12 | XMS | Encounter Summary ---
Demographics + + + | Address | [address] | | | [place] [address] | + + + | Home Phone | | + + + | Preferred Language | Unknown | + + + | Marital Status | | + + + | Adventism Affiliation | Unknown | + + + | Race | White | + + + | Ethnic Group | Not or | + + + Author + + + | Author | [facility] | | | and [place] | + + + | Organization | [facility] | | | and [...] Team Providers + +------+ + | Care Study Abroad Coordinator Name | Role | Phone | + +------+ + | Isaac Miranda MD | PCP | | + +------+ + Encounter Details +--------+ + + + + | Date | Type | Department | Care Team | Description | +--------+ + + + + | 07/24/ | Orders Only | [facility] [place] | Stas [facility] | Lumbar radiculopathy | | 2017 | | PHYSIATRY [address] | (Primary Dx) | | | | [address] | [address] [place] | | | | | [place] | [address] | | | | | [address] | | | | | | [phone] | | | +--------+ + + + [...] on filedocumented as of this encounter Results [place] CRISTINE Lumbar Transforaminal (07/25/2016 12:55 PM PDT) + + | Specimen | + + | | + + + + ---+ | Narrative | Performed At | + + ---+ | 07/25/2016 | [facility] | | Transforaminal Epidural Steroid Injections Diagnosis: Lumbar | [facility] | | radiculopathy ICD-10 Code M54.16 Patrice Interiano presents to the | [facility] | | fluoroscopy suite for fluoroscopically-guided [...] + + | Performing | Address | City/State[facility] | Phone Number | | Organization | | | | + + + + + | [facility] | [address] | [place] | [phone] | | [facility] | | [address] | | | - IMAGING | | | | + + + + + documented in this encounter Visit Diagnoses + + | Diagnosis | + + | Lumbar radiculopathy - Primary Thoracic or lumbosacral neuritis or radiculitis, | | unspecified | + + documented in this encounter"
--- OUTSIDE RECORDS SUMMARY | ~2019-11-12 | XMS | Encounter Summary ---
Demographics + + + | Address | [address] | | | [place] [address] | + + + | Home Phone [...] Team Providers + +------+ + | Care Stone Cutter Name | Role | Phone | + [...] | | | | Procedures | | [address] | | | | | LA TOTAL | | Phone: | | | | | HIP | | [phone] | | | | | ARTHROPLASTY | | Fax: | | | | | Right | | [phone] | | | | | total hip | | | | | | | arthroplasty | | | +--------+--------+ + + + + Encounter Details +--------+---------+ + + + | Date | Type | Department | Care Team | Description | +--------+---------+ + + + | 08/12/ | Surgery | [facility] | Tay Chand MD | Right total hip | | 2019 | | MED CTR [facility] | [address] | arthroplasty | | | | [address] | [place], [place] | | | | | [place], [place] | [address] | | | | | [address] | [phone] | | | | | [phone] | | | +--------+---------+ + + + [...] + + + | Blood Pressure | 117/83 | 08/13/2019 11:10 AM | | | | | PDT | | + + + + + | Pulse | 57 | 08/13/2019 11:10 AM | | | | | PDT | | + + + + + | Temperature | 36.3 C (97.3 F) | 08/13/2019 10:43 AM | | | | | PDT | | + + + + + | Respiratory Rate | 24 | 08/13/2019 11:10 AM | | | | | PDT | | + + + + + | Oxygen Saturation | 92% | 08/13/2019 11:10 AM | | | | | PDT [...] - 08/12/2019Your post op appointment is scheduled f or August 20 at 3:30 pm. Please check in at 3:00 pm for X-rays at the [facility]. Discharge Instructions for Total HIP Replacement MOVING [...] can search for public disposal locations at [email or web address] RISKS OF MISUSE AND OVERDOSE ? When [...] Rogers, PharmD - 08/14/2019 12:05 PM Dia Tejadane Laisha is s/p R NIRAJ and discharg ed [...] the above and all questions were answered. [facility] Nurse Navigator will follow-up with patient in one to two business days. Patient was pro vided with a reconciled discharge medication list as part of their AVS instructions. [place] joynerd patient to share medication list with healthcare [...] 7:20 AM PDTIntroduced myself to patient as transportation security screener for Total Joints. Discu ssed with patient my role as RN Joint Navigator and how we can help with their total joint r ecovery. Pt. Joint journey plan remains the same, home with support motor coach operator. Informed patien t they would be receiving a phone call from me 24-48 hours after they are discharge from the hospital. Informed patient I am a resource for them and will be following them for 90 days after discharge from hospital. Pt. Has his own walker in the room and is planning on being discharged to home in [place] with support motor coach operator Gely. documented in this encounter H&P Notes Tay Chand MD - [facility]13/2019 8:[facility] AND [...] Tay Chand MD, 08/13/2019 8:24 AM PDT [facility] Tay Chand MD [facility] [...] t. Radiographs: Plain films obtained today show fetd-kt-hwjc right hip osteoarthritis and a st able [...] arthroplasty. He is very much interested in farazi ng with that as soon as possible, [...] to right hip has been managed with [place] pill PRN. Tolerating diet well. VSS, remains [...] of this note might be different from th e original. Occupational Therapy Initial Evaluation, Treatment, Discharge Note Recommended discharge disposition: home with assist Post discharge occupational therapy recommendation: no further OT Equipment Recommendations: ward helper, sock aide, shower chair Barriers to community-based [...] sink to wash hands. Grooming, Level of Surry: modified independent Assistive Device: none Grooming Assess/Train, Position: standing Grooming Impairments: pain Lower Body Dressing Assessment/Training LB Dressing Assess/Train, Comment: LB dressing: verbal discussion. pt states he as all AE a t home from prior surgery and has no questions or concerns using sock aid or ward helper for tomer ssing. LB Dressing, Level of Surry: modified independent(per pt. report. verbalized not lynne jenn to work on in therapy) Assistive Device: none LB Dressing Assess/Train, Position: sitting LB Dressing Impairments: decreased flexibility, ROM decreased, pain Toileting Assessment/Training Toileting Assess/Train, Comment: mod with hygiene and clothing management. Toileting, Level of Surry: modified independent Assistive Device: grab bar Toileting Assess/Train, Position: sitting, standing Toileting Impairments: decreased flexibility, ROM decreased, pain Bed Mobility Bed Mobility Comments: following education and training on hooking method. pt. able to demo nstrate safe return Additional Documentation: supine to/from sit Assistive Device: none Supine to Sit, Level of Surry: modified independent Sit to Supine, Level of Surry: not tested Safety Issues: decreased use of legs for bridging/pushing Impairments: strength decreased, pain Transfers Transfers Comments: following education and training of precautions. demonstrated good retu rn of safety and functional t/fs. Additional Documentation: toilet, walk-in shower, sit to/from stand Sit-Stand, Level of Sur[place]: modified independent Stand-Sit, Level of Surry: modified independent Rku-Yquwf-Ngu, Assistive Device: 2 wheeled walker (FWW) Toilet, Level of Surry: modified independent Toilet, Assistive Device: 2 wheeled walker (FWW), grab bars, toilet safety frame Walk-in shower, Level of Sur[place]: stand by assist, verbal cues required Walk-in [...] OT, 08/14/2019 1:22 PM PDT lan of Care - Krissy Bryan MSW - 08/14/2019 10:33 AM PDTMet with patient to discuss discharge plann ing, he lives in [place] with his . Patient has a FWW in his room. Discussed home oxyg en, patient states he uses "[place] [employer]" for his Cpap supplies. States his wi ll provide transportation. Phone call to Gely, discussed home Cpap, she states In Home Medical services the Cpap, would like to use them for home oxygen. Gely confirmed that she will provide transportation . [...] the order, states is there now to pick pulling machine operator the portable cannister. In Home Medical will [...] keeps over 88% lan of Care - Alex Martina Carlos Enrique, ATTENDANCE OFFICER - 08/14/2019 9:13 AM PDTFormatting of this [...] encouraged to ambulate into hallway with [facility]. It is encouraged that the patient [...] from multiple contributors. Gait improving Level of Surry: contact guard assist Assistive Device: 2 wheeled walker (FWW) Distance (feet): 100' Impairments: strength decreased, impaired balance, motor control impaired, postural control impaired Stairs Will address in PM session Transfers SBA Sit-Stand, Level of Surry: stand by assist Stand-Sit, Level of Surry: stand by assist Vle-Yqugw-Czz, Assistive Device: 2 wheeled walker (FWW) Impairments: strength decreased, motor control impaired Bed Mobility MIn A to LE BTB Assistive Device: none Scoot/Bridge, Level of Surry: contact guard assist Supine to Sit, Level of Surry: not tested Sit to Supine, Level of Surry: minimal assist (75% patient effort), verbal cues [...] LTG Review Date 08/20/19 at 08/13/2019 1310 Njnpyw-Vam-Odmjup Goal Most Recent Value LTG Status progressing at 08/14/2019 0913 LTG Surry Level modified independent at 08/13/2019 1310 LTG Assistive Device none at 08/13/2019 1310 Wux-Ecowr-Vfl Goal Most Recent Value LTG Status progressing at 08/14/2019 0913 LTG Sur[place] Level modified independent at 08/13/2019 1310 LTG Assistive Device 2 wheeled walker (FWW) at 08/13/2019 1310 Gait Goal Most Recent Value LTG Status progressing at 08/14/2019 0913 LTG Surry Level modified independent at 08/13/2019 1310 LTG Assistive Device 2 wheeled walker (FWW) at 08/13/2019 1515 LTG Distance (feet) 50 x2 at 08/13/2019 1310 Stair Goal Most Recent Value LTG Status new at 08/13/2019 1515 LTG Surry Level modified independent at 08/13/2019 1515 LTG [...] PTA, 08/14/2019 11:50 AM PDT lan of Care - Madelyn Raymundo SLIP DUMPER - 08/14/2019 4:22 AM PDTTony oxygen saturation [...] Says he prefers the NC. lan of Care - Rosa Plummer RN - 2019 4:12 AM PDTVials stable. Reported moderate pain in R hip, however only requested tylen ol for pain. A&O x4. HR regular, lungs clear. Voiding without difficulty, passing flatus. Dr shekhar clean, dry, and intact. Patient ambulating to bathroom with walker. 2nd liter of LR r unning at 100. Abductor pad in place. Electronically signed by Rosa Plummer RN at 08/13 4:22 AM PDTPlan of Care - Gamaliel Caceres RN - 08/13/2019 4:29 PM PDTTony is A&Ox4, pain was managed with [place] PRN, VSS, remains on oxygen via [place] at 5L/min. VSS, tolerating d iet well. CMS intact, dressing was reinforce d/t small drainage. One person CGA with FWW, ca lls approprietly for assistance. Frequent rounding. Problem: [...] Optimal Mobility Outcome: Ongoing, progressing lan of Care - Della Ruvalcaba PT - 08/13/2019 3:15 [...] as evidenced by progressed independence and gait. Relevant Media handout given. Patient edu cated on posterior [...] Device: none Supine to Sit, Level of Surry: contact guard assist Sit to Supine, Level of Surry: contact guard assist Impairments: strength decreased, impaired balance, motor control impaired, postural control impaired Transfers Transfers Comments: improved safety, min A still for assist with lines and walker Sit-Stand, Level of Surry: minimal assist (75% patient effort), set up required, wilbur bal cues required Stand-Sit, Level of Surry: minimal assist (75% patient effort), set up required, wilbur bal cues required Rwy-Vjlfa-Khz, Assistive Device: 2 wheeled walker (FWW) Impairments: strength decreased, impaired balance, motor control impaired, postural control impaired Gait Gait Comments: improved safety Level of Surry: minimal assist (75% patient effort), set up required, verbal cues re quired Assistive Device: 2 wheeled walker (FWW) Distance (feet): 30 x2 Impairments: strength decreased, impaired balance, motor control impaired, postural control impaired Goals Reflects last filed data and may be from multiple contributors. Wnvagw-Lho-Acvqdm Goal Most Recent Value LTG Status progressing at 08/13/2019 1515 LTG Sur[place] Level modified independent at 08/13/2019 1310 LTG Assistive Device none at 08/13/2019 1310 Tsm-Ixxww-Djo Goal Most Recent Value LTG Status progressing at 08/13/2019 1515 LTG Sur[place] Level modified independent at 08/13/2019 1310 LTG Assistive Device 2 wheeled walker (FWW) at 08/13/2019 1310 Gait Goal Most Recent Value LTG Status new at 08/13/2019 1310 LTG Sur[place] Level modified independent at 08/13/2019 1310 LTG Assistive Device 2 wheeled walker (FWW) at 08/13/2019 1515 LTG Distance (feet) 50 x2 at 08/13/2019 1310 Stair Goal Most Recent Value LTG Status new at 08/13/2019 1515 LTG Sur[place] Level modified independent at 08/13/2019 1515 LTG [...] 3:34 PM PDT lan of Mahendra Boykin, SLIP DUMPER - 08/13/2019 1:32 PM PDTProblem: Prevent post [...] progress towards functional goals as evidenced by increas ed ability to perform gait post-operatively. RN [...] Device: none Supine to Sit, Level of Surry: minimal assist (75% patient effort) Impairments: strength decreased, impaired balance, motor control impaired, postural control impaired Transfers Transfers Comments: 2P assist for safety, knee block for safety Additional Documentation: sit to/from stand Sit-Stand, Level of Surry: minimal assist (75% patient effort), 1 person + 1 person to manage equipment, set up required, verbal cues required Stand-Sit, Level of Sur[place]: minimal assist (75% patient effort), 1 person + 1 person to manage equipment, set up required, verbal cues required Ydf-Qeqab-Nmu, Assistive Device: 2 wheeled walker (FWW) Impairments: strength decreased, impaired balance, motor control impaired, postural control impaired Gait Gait Comments: min A for safety, progressing activity with marching and pre-gait; step over step Level of Surry: minimal assist (75% patient effort), 1 person [...] data and may be from multiple contributors. Aznqvh-Ffn-Loffml Goal Most Recent Value LTG Status new at 08/13/2019 1310 LTG Sur[place] Level modified independent at 08/13/2019 1310 LTG Assistive Device none at 08/13/2019 1310 Lvm-Iogba-Qrz Goal Most Recent Value LTG Status new at 08/13/2019 1310 LTG [place] Level modified independent at 08/13/2019 1310 LTG Assistive Device 2 wheeled walker (FWW) at 08/13/2019 1310 Gait Goal Most Recent Value LTG Status new at 08/13/2019 1310 LTG Surry Level modified independent at 08/13/2019 1310 LTG [...] function. After failing reasonable conservative measures, Patrice Interinao elects to pr oceed with surgical treatment. Risk and benefits were discussed. Consent was obtained in [facility]. Pre-operative Diagnosis: Right hip osteoarthritis Post-operative Diagnosis: Right hip osteoarthritis Procedure: Right total hip arthroplasty Approach: Posterolateral Anesthesia: @ORANES@ Anesthesiologist: Wesly Armenta MD Surgeon: aTy Chand MD Attending Attestation: I was present and scrubbed for the entire procedure. Steel Heater: MARY Bansal. Note the field assistant was necessary in performing th is procedure. [...] the left lateral de cubitus position using Shelton positioners. All bony prominences were well padded [...] + | [facility] | [address] | [place] | [phone] | | [facility] | | [address] | | | - LABORATORY | | [...] | | | | | | [facility] | | | | | | MEDICAL [...] + | [facility] | [address] | [place] | [phone] | | [facility] | | [address] | | | - LABORATORY | | | | + + + + + XR Pelvis 1 or 2 Vw (08/13/2019 11:00 AM PDT) + + | Specimen | + + | | + + + + + | Impressions | Performed At | + + + | Interval right hip arthroplasty. Electronically signed by Sergio Gomez [facility] | | MD Tom 08/13/2019 [...] + | Francois Singh Results In - 08/13/2019 11:27 AM PDT [...] + | Diagnosis | + + | Unilateral primary osteoarthritis, left hip | + + documented in this encounter [...] | | | + +--------+ + +------+------+ +-------+ + +---+---+ | Given | 08/13/19 [...] HOURS | | | PRN, Wheezing, Starting Sun | | | 08/13/19 at 1214, RT will | | | administer., | | + +---+ | | | + +---+ + +-------+ +------+---+---+ | apixaban (ELIQUIS) tablet 5 mg | Given | 08/14/19 | 5 mg | | | | 5 mg, Oral, 2 TIMES DAILY, First | | 20 6:51 | | | | | dose on Ketty 08/14/19 at 0730, | | AM PDT | | | | | Post-op/Phase II | | | | | | + +-------+ +------+---+---+ + +---+ | | | + +---+ [...] HOURS PRN, | | | Itching, Starting Sun08/13/19 at | | | 1205, Oral route is preferred., | | | Post-op/Phase II | | + +---+ | | | + +---+ | diphenhydrAMINE (BENADRYL) | | | tablet 25 mg 25 mg, Oral, EVERY | | | 4 HOURS PRN, Itching, Starting | | | Sun08/13/19 at 1205, Oral route | | | is preferred., Post-op/Phase II | | + +---+ | | | + +---+ + +-------+ +--------+---+---+ | docusate sodium (COLACE) | Given | 08/14/19 | 100 mg | | | | capsule 100 mg 100 mg, Oral, | | 20 8:15 | | | [...] | | | (after last reorder) on Wed | | PM PDT | | | [...] | | Oral, DAILY, First dose on Sun | | [...] +---+---+ | | | +---+---+ + +-------+ +--------+---+ + | ropivacaine 123 mg-EPINEPHrine | Given | 08/13/19 | 50 mLs | | Hip-Righ | | 0.25 mg-cloNIDine 0.04 | | 20 10:09 | | | t | | mg-ketorolac 15 mg in NS 50 mL | | AM PDT | | | | | syringe PRN, Starting Wed | | | | | | | 08/13/19 at 0930, Intra-op | | | | | | + +-------+ +--------+---+ + +---+---+ | | | +---+---+ + [...] 8:24 | | | | | on Sun08/13/19 at 2100, | | PM PDT | | | | | Post-op/Phase II | | | | | | + +-------+ +------+---+---+ +---+---+ | | | +---+---+ documented in this encounter
--- OUTSIDE RECORDS SUMMARY | ~2019-11-12 | XMS | Encounter Summary ---
Demographics + + + | Address | [address] | | | [place] [address] | + + + | Home Phone [...] Team Providers + +------+ + | Care Experimental Rocketsled Mechanic Name | Role | Phone | + +------+ + | Isaac Miranda MD | PCP | | + +------+ + Encounter Details +--------+ + + + + | Date | Type | Department | Care Team | Description | +--------+ + + + + | 04/03/ | Hospital | [facility] | Mahendra Luna MD | Status post lumbar | | 2012 - | Encounter | MED CTR XRAY [address] | [address] | spinal fusion | | | | [address] | [place] [address] | | | 04/05/ | | [place] [address] | [phone] | | | 2012 | | [phone] | | | +--------+ + + + [...] tablets by | 60 | 0 | 04/03/19 | | | oxyCODONE-acetaminop | mouth every 4 hours | tablet | | 13 | 3 | | hen (PERCOCET) 5-325 | as needed for Pain. | | | | | | mg per tablet | | | | | | + + + +---------+ + + | | Take 1-2 tablets by | 60 | 0 | 02/22/19 | | | oxyCODONE-acetaminop | mouth every 4 hours | tablet | | 13 | 3 | | hen (PERCOCET) | as needed for Pain. | | | | | | 7.5-325 mg per | | | | | | [...] LUMBAR SPINE 2 OR | Routin | 04/03/2012 | Status post lumbar | Results for this | | 3 VW | e | 1:28 PM | spinal fusion | procedure are [...] Performed At | + + + | [facility] | [place] | | Department [address] | [facility] | | [ rep ct [phone]] [ rep ct [facility] | | st zip] Signed | - IMAGING | | | | | Patient Name: AMISHAPATRICE Z Physician: | | | : 1955 Age: 56 Sex: M Unit #: [id number] | | | Exam Date: 04/03/12 [place] [facility] | | | Report #: [id number] Page: | | | %(RAD)RES..mtdd.print.filter("pg") of %(RAD) | | | RES..mtdd.print.filter("tpg") | | | | | | Accession Number: [id number] | | | LUMBAR SPINE, 04/03/2012 CLINICAL [...] Transcribed | | | Date/Time: 04/03/2012 14:09 Badger Distiller Operator: | | | <<Signature on File>> | | | | | | Dickson Armenta MD04/03/12 1419 <Electronically signed by | | | Dickson Armenta MD> Dickson Armenta MD 04/03/12 | | | 1328 Badger Distiller Operator: Expanite [id number]/13/13 2169 | | | Mahendra Luna MD | | + + + + + + + + | Performing | Address | City/State/Zipcode | Phone Number | | Organization | | | | + + + + + | [facility] | [address] | [place] | [phone] | | [facility] | | [address] | | | - IMAGING | | | | + + + + + documented in this encounter Visit Diagnoses + + | Diagnosis | + + | Status post lumbar spinal fusion Arthrodesis status | + + documented in this encounter
--- OUTSIDE RECORDS SUMMARY | ~2019-11-12 | XMS | Encounter Summary ---
Demographics + + + | Address | [address] | | | [place] [address] | + + + | Home Phone | | + + + | Preferred Language | Unknown | + + + | Marital Status | | + + + | Mormon Affiliation | Unknown | + + + | Race | White | + + + | Ethnic Group | Not or | + + + Author + + + | Author | [facility] | + + + | Organization | [facility] | + + + | Address | Unknown | + + + | Phone | Unavailable | + + + Support + + +---------+ + | Name | Relationship | Address | Phone | + + +---------+ + | Gely Interiano | ECON | Unknown | | + + +---------+ + Care Team Providers + +------+ + | Care Hoof Trimmer Name | Role | Phone | + +------+ + | Isaac Miranda MD | PCP | | + +------+ + Encounter Details +--------+ + + + + | Date | Type | Department | Care Team | Description | +--------+ + + + + | 05/21/ | Document-Sc | Health Information | Unknown . | | | 2012 | anned | Services [id number] | | | | | | [address] | | | | | | Mailcode: [id number] | | | | | | [facility] | | | | | | [place], [place] | | | | | | [address] | | | | | | [phone] | | | +--------+ + + + [...] + + + | RADIOLOGY | | 05/21/2012 | | Results for this | | | | 12:00 AM | | procedure are in the | | | | PDT | | results section. | + +--------+ + + + documented in this encounter Results RADIOLOGY (05/21/2012 12:00 AM PDT) + + + | Narrative | Performed At | + + + | | | + + + documented in this encounter Visit Diagnoses Not on filedocumented in this encounter"
--- OUTSIDE RECORDS SUMMARY | ~2019-11-12 | XMS | Encounter Summary ---
Demographics + + + | Address | [address] | | | [place] [address] | + + + | Home Phone | | + + + | Preferred Language | Unknown | + + + | Marital Status | | + + + | Yarsani Affiliation | Unknown | + + + [...] Team Providers + +------+ + | Care Clinical Research Nurse Name | Role | Phone | + +------+ + PCP | Unavailable | + +------+ + Encounter Details +--------+ + + + + | Date | Type | Department | Care Team | Description | +--------+ + + + + | 09/18/ | Hospital | [facility] | Stas Whalen | | | 2011 | Encounter | MED CTR XRAY [address] | | | | | [place] | [address] [place], [place] | | | | | [place] [address] | [address] | | | | | [phone] | | | +--------+ + + + [...] + | FL EPIDURAL STEROID | | 09/19/2011 | | Results for this | | INJECTION LUMBAR | | 1:34 PM | | procedure are in the | | TRANSFORAMINAL | | PDT | | results section. | + +--------+ + + + documented in this encounter Results FL CRISTINE Lumbar Transforaminal (09/19/2011 1:34 PM PDT) + + | Specimen | + + | | + + + + + | Narrative | Performed At | + + + | [facility] Diagnostic Imaging Department | [facility] | | [address] [facility] | [facility] | | PROCEDURE NOTE EPIDURAL | DIAG IMG | | STEROID INJECTION, 09/19/2011 CLINICAL HISTORY: ICD-9 CODE IS | | | 724.4, LUMBAR RADICULITIS. Mr. Patrice Interiano presents to the | | | fluoroscopy suite for a fluoroscopically guided right L4-L5 transfora | | | robert epidural steroid injection as part of conservative management | | | for chronic pain with lumbar radi culopathy and degenerative disk | | | disease. After informed consent was obtained, the patient laid in the | | | prone position on the fluoroscopy table. The area was identified | | | under fluoroscopic guidance. The a zenaida was prepped and draped in a | | | sterile fashion. A 25-gauge 1-1/2 inch needle was inserted into the | | | region and approximately 3 mL of buffered 1% lidocaine was infused, | | | then a 22 gauge spinal needle was inserted into the posterior | | | superior transforaminal space and advanced into the epidural space | | | under fluoroscopic guidance. Confirmation into the epidural space | | | was obtained with infusion of approxima tely 1 mL of Isovue contrast | | | which showed epidural flow as well as nerve sheath flow. Then, a | | | combin ation of 1-1/2 mL of 1% lidocaine and 1-1/2 mL of 6 mg/mL of | | | Celestone was infused. The patient kartik rated the procedure well | | | without complications. Pre and post procedure blood pressures were | | | stable. The patient was given verbal as well as written follow-up | | | instructions. Prior to start of the procedure, the following were | | | performed and verified, including correct patient identity, correct | | | site/side marked and visible, agreement on the procedure to be done, | | | correct patie nt positioning and an accurate procedure consent form. | | | Any safety precautions based on clinical hist ory and/or medication | | | use have been addressed. I personally performed the procedure | | | above. Dictated Date/Time: 09/22/2011 08:08 Transcribed | | | Date/Time: 09/22/2011 10:04 Cosmetology Educator: | | | <Electronically Signed by Stas Whalen MD> 10/04/11 0831 | | + + + + + | Procedure Note | + + | Francois Singh Conversion - 03/28/2013 5:[address] [facility] | | Diagnostic Imaging Department [address] [facility] | | PROCEDURE NOTE EPIDURAL STEROID INJECTION, 09/19/2011 | | CLINICAL HISTORY: ICD-9 CODE IS 724.4, LUMBAR RADICULITIS. Mr. Patrice Interiano presents to | | the fluoroscopy suite for a fluoroscopically guided right L4-L5 transforaminal epidural | | steroid injection as part of conservative management for chronic pain with lumbar | | radiculopathy and degenerative disk disease. After informed consent was obtained, the | | patient laid in the prone position on the fluoroscopy table. The area was identified | | under fluoroscopic guidance. The area was prepped and draped in a sterile fashion. A | | 25-gauge 1-1/2 inch needle was inserted into the region and approximately 3 mL of | | buffered 1% lidocaine was infused, then a 22 gauge spinal needle was inserted into the | | posterior superior transforaminal space and advanced into the epidural space under | | fluoroscopic guidance. Confirmation into the epidural space was obtained with infusion | | of approximately 1 mL of Isovue contrast which showed epidural flow as well as nerve | | sheath flow. Then, a combination of 1-1/2 mL of 1% lidocaine and 1-1/2 mL of 6 mg/mL of | | Celestone was infused. The patient tolerated the procedure well without complications. | | Pre and post procedure blood pressures were stable. The patient was given verbal as | | well as written follow-up instructions. Prior to start of the procedure, the following | | were performed and verified, including correct patient identity, correct site/side | | marked and visible, agreement on the procedure to be done, correct patient positioning | | and an accurate procedure consent form. Any safety precautions based on clinical | | history and/or medication use have been addressed. I personally performed the procedure | | above. Dictated Date/Time: 09/22/2011 08:08Transcribed Date/Time: 09/22/2011 | | 10:04Transcriptionist: <Electronically Signed by Stas Whalen MD> 10/04/11 | | 0831 | |Prior to start of the procedure, the following were performed and verified, including corre ct patient | | identity, correct site/side marked and visible, agreement on the procedure to be done, cor rect patie | |nt positioning and an accurate procedure consent form. Any safety precautions based on cli nical hist | |ory and/or medication use have been addressed. | | | |I personally performed the procedure above. | | | |Dictated Date/Time: 09/22/2011 08:08 | |Transcribed Date/Time: 09/22/2011 10:04 | |Cosmetology Educator: | |<Electronically Signed by Stas Whalen MD> 10/04/11 0831 | + + + +---------+ + + [...]
--- OUTSIDE RECORDS SUMMARY | ~2019-11-12 | XMS | Encounter Summary ---
Demographics + + + | Address | [address] | | | [place] [address] | + + + | Home Phone | | + + + | Preferred Language | Unknown | + + + | Marital Status | | + + + | Quaker Affiliation | Unknown | + + + | Race | White | + + + | Ethnic Group | Not or | + + + Author + + + | Author | [facility] | | | and Brianana | + + + | Organization | [facility] | [...] Team Providers + +------+ + | Care Edge Grinder Machine Name | Role | Phone | + +------+ + | Santi Dumont MD | PCP | | + +------+ + Reason for Visit + + + | Reason | Comments | + + + | New Patient | Inguinal swelling | + + + Evaluate & Treat (Routine) + + + + + + + | Status | Reason | Specialty | Diagnoses / | Referred By | Referred To | | | | | Procedures | Contact | Contact | + + + + + + + | Authorized | Specialty | Surgery / | Diagnoses | Julia, | Victor Manuel, | | | Services | General | Inguinal | Santi Fleming MD | David Jackson MD, | | | Required | Surgery | swelling | [address] | [address] | | | | | | [place], | [place], | | | | | | [place] [address] | [place] [address] | | | | | | Phone: | Phone: | | | | | | [phone] | [phone] | | | | | | Fax: | Fax: | | | | | | [phone] | [phone] | + + + + + + + Encounter Details +--------+---------+ + + + | Date | Type | Department | Care Team | Description | +--------+---------+ + + + | 03/18/ | Office | [facility] | Santi Dumont MD | Inguinal strain | | 2020 | Visit | SURGERY [address] | [address] [facility] | (Primary Dx) | | | | [address] [place], [place] | [place], [place] | | | | | [address] | [address] | | | | | [phone] | | | | | | | David Rush W, | | | | | | , FACS [address] | | | | | | [address] [place], [place] | | | | | | [address] | | | | | | | [...] + + + | Blood Pressure | 112/68 | 03/18/2019 3:38 PM | | | | | PST | | + + + + + | Pulse | 70 | 03/18/2019 3:38 PM | | | | | PST | | + + + + + | Temperature | 36.9 C (98.5 F) | 03/18/2019 3:38 PM | | | | | PST | | + + + + + | Respiratory Rate | - | - | | + + + + + | Oxygen Saturation | 95% | 03/18/2019 3:38 PM | | | | | PST | | + + + + + | Inhaled Oxygen | - | - | | | Concentration | | | | + + + + + | Weight | 122.7 kg (270 lb 8.1 | 03/18/2019 3:38 PM | | | | oz) | PST | | + + + + + | Height | 177.8 cm (5' 10") | 03/18/2019 3:38 PM | | | | | PST | | + + + + + | Body Mass Index | 38.81 | 03/18/2019 3:38 PM | | | | | PST | | + + + + + documented in this encounter Progress Notes David Rush MD, FACS - 03/18/2019 3:30 PM PSTFormatting of this note might be diffe rent from the original. Consult Note Referring Provider: Santi Dumont MD HISTORY OF PRESENT ILLNESS Patrice Interiano is a 63 y.o. male patient of Santi Dumont MD here today for evaluation of Inguinal swelling. Physician notes: Patrice is a pleasant 63-year-old gentleman with a history of a previous right inguinal hernia repair with mesh in 2010. He is morbidly obese with a BMI of 38. He has central adiposity . He intermittently exercises and works extremely hard and then does not exercise for some time. He also has a history of right hip arthritis and may need hip replacement. Around No vember, he began noting right groin strain. He says that it feels like it is swollen. Egan wilbur, he cannot really see the region well. He has not noted a reducible bulge. He has not had obstructive type symptoms. Currently, he feels improved but still has some mild sorenes s in the region. DICKSON Score:Patient has sleep apnea and uses a CPAP. Opioid Risk Tool (ORT): Total Score 0 (03/18/19 1544) Interpretation of Total Score: 0 to 3 = Low risk: 6% chance of developing problematic behav iors, 4 to 7 = Moderate risk: 28% chance of developing problematic behaviors, 8 or more = Hi gh risk: 90% chance of developing problematic behaviors. Imaging/ Pathology: US abdomen limited 09/16/2018 FINDINGS: LIVER: Size: Mildly enlarged. Echogenicity: Moderately echogenic Surface nodularity: None. Mass (size and location): None. Portal Vein: Hepatopedal flow. BILE DUCTS: Intrahepatic ducts: Normal. Common bile duct diameter: 4 mm GALLBLADDER: Gallstones: None. Gallbladder sludge: None. Gallbladder wall thickening: None. Pericholecystic fluid: None. Sonographic Wall sign: Absent. PANCREAS: Imaged pancreas is unremarkable. ASCITES: None. IMPRESSION - Hepatomegaly with fatty infiltration. Dictated and Signed by: García Britton MD Electronically signed: 09/16/2018 2:20 PM Santi Dumont MD's notes were reviewed in clinic today. PAST MEDICAL HISTORY Past Medical History: Diagnosis Date Allergic rhinitis Arthralgia of knee Patella, Tibia, Fibula Benign prostatic hyperplasia without urinary obstruction Cervical radiculopathy C3-C7 Cervical spondylosis with myelopathy Depression with anxiety GERD (gastroesophageal reflux disease) GI bleed 1999 [place] (hard of hearing) wears hearing aids Hypertension Left sided sciatica Low back pain Lumbar degenerative disc disease Lumbar facet arthropathy MULTILEVEL Lumbar spondylosis Osteoarthritis, generalized PE (pulmonary thromboembolism) (HCC) following lumbar spine surgery 2016 Primary localized osteoarthrosis of left hip Restless leg syndrome Smokeless tobacco use Spondylolisthesis of lumbar region Tremor Past Surgical History: Procedure Laterality Date CERVICAL FUSION 06/2011 Dr. Luna; [facility] COLONOSCOPY Done 2010 EGD 1999 HERNIA REPAIR 08/03/2010 Herniorraphy; [facility]dez Vang INCISION AND DRAINAGE 2008 Thrombosed hemorrhoid. LUMBAR FUSION 01/2012 Dr. Luna; [facility] LUMBAR FUSION Dr. Gerber Ojeda, [place] TONSILLECTOMY AND ADENOIDECTOMY TOTAL HIP ARTHROPLASTY Left 06/07/2017 Procedure: Left Total Hip Arthroplasty; Surgeon: Tay Chand MD; Location: [facility] MA[facility] O R TYMPANOPLASTY TUBES VASECTOMY Allergies: No Known Allergies Medications: Outpatient Encounter Medications as of 03/18/2019 Medication Sig Dispense Refill acetaminophen (TYLENOL) 500 mg tablet Take 500 mg by mouth every 6 hours as needed for Pain. albuterol (PROAIR HFA) 90 mcg/puff inhaler Inhale 2 puffs into the lungs every 6 hours as needed for Wheezing. (Patient not taking: Reported on 03/18/2019) 6.7 g 3 ELIQUIS 5 MG tablet [...] scle spasms. (Patient not taking: Reported on 03/18/2019) 30 tablet 0 No facility-administered encounter medications on file as of 03/18/2019. 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 General: [x]Weight loss/gain (over 10 lbs) []Fever/chills []Night sweats Hematologic: []Bleeding/brusing tendencies []Blood transfusion []Anemia Heent: []Vision loss []Hearing loss []Sinus problems/nose bleeds []Hoarseness Respiratory: []Wheezing [x]Shortness of breath []Cough []Spitting up blood []On oxygen [x]Use CPAP machine Cardiac: []Chest pain []Palpitations/heart racing [x]Swelling of ankles/hands []Unusual shortness of breath []Difficulty sleeping flat Gastrointestinal: []Nausea/vomiting []Difficulty swallowing []Heartburn []Loss of appetite []Abdominal pain []Stomach Ulcers []Diarrhea []Constipation []Abelardo k or bloody stools Vascular: []Strokes/TIAs []Fainting []Difficulty with speech []Leg cramps []Pain in feet/legs at rest []Foot ulcers/so res []Varicose veins []Phlebitis/blood clots Musculoskeletal: []Joint stiffness/swelling [x]Joint pain [x]Back pain [x]Arthritis []Gout Urologic: []Blood in urine []Frequent urination at night []Burning/painful urination []Kidney stones []Difficult urination []Sexual difficulties Neuro/Psychiatric: []Headaches []Seizures []Depression []Anxiety attacks []Memory loss or confusion PHYSICAL EXAM BP 112/68 | Pulse 70 | Temp 36.9 C (98.5 F) (Temporal) | Ht 1.778 m (5' 10") | Wt 1 22.7 kg (270 lb 8.1 oz) | SpO2 95% | BMI 38.81 kg/m General Appearance: Alert, cooperative, no distress, appears stated age Skin: Warm and dry Head: Normocephalic, without obvious abnormality, atraumatic Eyes: PERRL, conjunctiva/corneas clear, EOM's intact Ears: Adequate hearing bilateral Lungs: Breath sounds are clear to auscultation bilaterally, no wheezes, crackles Heart: Regular rate and rhythm, S1, S2 normal, no murmur Abdomen: Soft, non-tender obese and nontender. Normal external genitalia. No evidence of recurrent right inguinal hernia. No evidence of left inguinal hernia No evidence of swelling or soft tissue abnormality on exam Neurologic: Alert and oriented x3 Assessment /Plan Patrice was seen today for new patient. Diagnoses and all orders for this visit: Inguinal strain - AMB REFERRAL TO [facility] There is no evidence of inguinal hernia on examination. Most likely, this is a muscle sk eletal injury that will resolve with rest, warm heat and nonsteroidal anti-inflammatories. The patient will continue to check for a bulge and contact me if he notices anything new. A dditionally, he may have some referred pain from his right hip. He is going to discuss refe rral to Dr. Chand with Dr. Dumont on his next appointment. Instructions and precautions reg charismading beginning exercise slowly and gradually building up his routine were given. I antici dunlap that his symptoms should resolve in the next 1 to 2 months. If not, I recommend that y ou consider CT scan of the pelvis to look for other occult possibilities. Patient is released back to the care of Dr.Barga David Rush MD, FACS [facility] PCP: Santi Dumont MD Portions of this chart may have been created with [employer] voice recognition software. Occasi onal wrong-word or sound-alike substitutions may have occurred due to the inherent acevedo itations of voice recognition software. Please read the chart carefully and recognize, using context, where these substitutions have occurred. documented in this encounter Plan of Treatment Not on filedocumented as of this encounter Visit Diagnoses + + | Diagnosis | + + | Inguinal strain - Primary Swelling of limb | + + documented in this encounter
--- OUTSIDE RECORDS SUMMARY | ~2019-11-12 | XMS | Encounter Summary ---
Demographics + + + | Address | [address] | | | [place] [address] | + + + | Home Phone | | + + + | Preferred Language | Unknown | + + + | Marital Status | | + + + | Nondenominational Affiliation | Unknown | + + + [...] Team Providers + +------+ + | Care Driver Name | Role | Phone | + +------+ + | Santi Dumont MD | PCP | | + +------+ + Encounter Details +--------+ + + + + | Date | Type | Department | Care Team | Description | +--------+ + + + + | 01/31/ | Hospital | [facility] | Santi Dumont MD | Left hip pain | | 2017 | Encounter | [facility] [address] [facility] | [address] [facility] | | | | | [address] [place] | [place], [place] | | | | | [place], [place] | [address] | | | | | [address] | | | | | | [phone] | | | +--------+ + + + [...] +--------+ + + + | XR HIP LEFT 2-3 | Routin | 01/31/2017 | Left hip pain | Results for this | | VIEWS | e | 4:33 PM | | procedure are in the | | | | PST | | results section. | + +--------+ + + + documented in this encounter Results XR Hip Left 2-3 [...]
--- OUTSIDE RECORDS SUMMARY | ~2019-11-12 | XMS | Encounter Summary ---
Demographics + + + | Address | [address] | | | [place] [address] | + + + | Home Phone | | + + + | Preferred Language | Unknown | + + + | Marital Status | | + + + | Zoroastrian Affiliation | Unknown | + + + | Race | White | + + + | Ethnic Group | Not or | + + + Author + + + | Author | [facility] | + + + | Organization | [facility] | + + + | Address | Unknown | + + + | Phone | Unavailable | + + + Support + + +---------+ + | Name | Relationship | Address | Phone | + + +---------+ + | Gely Interiano | ECON | Unknown | | + + +---------+ + Care Team Providers + +------+ + | Care Etiquette Teacher Name | Role | Phone | + +------+ + | Isaac Miranda MD | PCP | | + +------+ + Encounter Details +--------+ + + + + | Date | Type | Department | Care Team | Description | +--------+ + + + + | 05/04/ | Document-Sc | Health Information | Unknown . | | | 2011 | anned | Services [id number] | | | | [address] | | | | | | Mailcode: [id number] | | | | | | [facility] | | | | | | [place], [place] | | | | | | [address] | | | | | | [phone] | | | +--------+ + + + [...] + + + | RADIOLOGY | | 05/05/2011 | | Results for this | | | | 12:00 AM | | procedure are in the | | | | PDT | | results section. | + +--------+ + + + documented in this encounter Results RADIOLOGY (05/05/2011 12:00 AM PDT) + + + | Narrative | Performed At | + + + | | | + + + documented in this encounter Visit Diagnoses Not on filedocumented in this encounter"
--- OUTSIDE RECORDS SUMMARY | ~2019-11-12 | XMS | Encounter Summary ---
Demographics + + + | Address | [address] | | | [place] [address] | + + + | Home Phone [...] Team Providers + +------+ + | Care Burnisher And Bumper Name | Role | Phone | + [...] Description | +--------+---------+ + + + | 05/03/ | Office | [facility] | Tiesha Pérez MD | DICKSON (obstructive | | 2018 | Visit | SLEEP DISORDER [address] | [address] | sleep apnea) | | | | [address] [place] | [place] | (Primary Dx); RLS | | | | [place] [place] [address] | [address] | (restless legs | | | | [phone] | | syndrome) | +--------+---------+ + + + Social History [...] + + + | Blood Pressure | 150/100 | 05/03/2017 9:28 AM | | | | | PDT | | + + + + + | Pulse | 65 | 05/03/2017 9:28 AM | | | | | PDT | | + + + + + | Temperature | - | - | | + + + + + | Respiratory Rate | 16 | 05/03/2017 9:28 AM | | | | | PDT | | + + + + + | Oxygen Saturation | 95% | 05/03/2017 9:28 AM | | | | | PDT | | + + + + + | Inhaled Oxygen | - | - | | | Concentration | | | | + + + + + | Weight | 115.1 kg (253 lb 12 | 05/03/2017 9:28 AM | | | | oz) | PDT | | + + + + + | Height | - | - | | + + + + + | Body Mass Index | 36.41 | 03/20/2017 2:56 PM | | | | | PST | | + + + + + documented in this encounter Progress Notes Tiesha Pérez MD - 05/03/2017 9:30 AM PDT Patrice Interiano is a 61 y.o. year old male is here for follow-up for sleep apnea. INTERVAL HISTORY The patient's last clinic visit was 04/04/17. He is accompanied by his . He had an overnight oximetry on room air on December 13, 2016. It showed mean SPO2 at 86% , sarah SPO2 was 68%, and he had spent 407 minutes <= 88%. Started on oxygen 1.5 l/m at [facility]. Last visit when I saw him he had already stopped his nocturnal supplemental oxygen. He had a home sleep apnea testing on April 02, 2017, demonstrating moderate to severe ob structive sleep apnea with RDI of 29.5. Mean oxygen oxygen saturation was 90%, sarah saturat ion was 84% , and patient sdate 33.3% of time (180minutes )below 90%. He wtarted on CPAP at 5-20 cm H2O. He has been using his machine regularly for the past few weeks. Pressure is comfortable, b ut the mask is not much comfortable. He is wearing a fullface mask. He has not tried nasal mask and he would like to try them. He also has problems with condensation. The bedroom t emperature is 68-70, and the tubing temperature is 80 degree. Restless legs is not bothering him much but he has really bad hip pain and he's been using a wheelchair recently because of this. He is trying to schedule himself for total hip repla cement. Also says before the surgery he has to restart taking opiates. PAP STATISTICS: DME Company: In home medical APAP: 5-20 cm Median p: 8.2 Max p: 13.6 Days not used: 04/14 Average daily usage: 7:36 % >= 4 hrs: 91% AHI: 1.6 PROBLEM LIST Patient Active Problem List Diagnosis Date Noted POA Preventative health care 02/04/2017 Unknown Nocturnal hypoxemia 01/31/2017 Unknown Acute deep vein thrombosis (DVT) of left lower extremity 201612/04/2016 Unknown Saddle embolus of pulmonary artery with acute cor pulmonale 201612/03/2016 Unknown Lumbar radiculopathy 07/19/2016 Unknown Lumbar spinal [...] 650 MG CR tablet Take by mouth. Yes Historical Pr MD jose albuterol (PROAIR HFA) 90 mcg/puff inhaler Inhale 2 puffs into the lungs every 6 hours as n eeded for Wheezing. 03/14/17 Yes Santi Dumont MD apixaban (ELIQUIS) 5 mg tablet Take 1 tablet by mouth 2 times daily. 01/31/17 Yes Santi Dumont MD furosemide (LASIX) 40 mg tablet Take 1 tablet by mouth Daily. 01/31/17 Yes Santi Dumont MD gabapentin (NEURONTIN) 300 mg capsule Take 1 capsule by mouth 4 times daily. 03/14/17 Yes Kathleen Dumont MD lisinopril (PRINIVIL, ZESTRIL) 20 mg tablet Take 2 tablets by mouth Daily. 01/31/17 Yes Berenice Dumont MD loratadine (CLARITIN) 10 mg tablet Take by mouth Daily. Yes Historical Provider, nadolol (CORGARD) 80 MG tablet Take 0.5 tablets by mouth Daily. 01/31/17 Yes Santi Dumont MD omeprazole (PRILOSEC) 20 mg capsule Take 20 mg by mouth every morning (before breakfast). Yes Historical Provider, POTASSIUM CHLORIDE PO Take 1 mEq by mouth Daily. Yes Historical Provider, pramipexole (MIRAPEX) 0.5 MG tablet Take 1 tablet by mouth Daily. 01/31/17 Yes Santi Hayes MD sertraline (ZOLOFT) 50 mg tablet Take 50 mg by mouth Daily. Yes Historical Provider, terazosin (HYTRIN) 5 mg capsule Take 1 capsule by mouth Daily. 01/31/17 Yes Santi Dumont MD PHYSICAL EXAM Vitals: 05/03/17 0928 BP: (!) 150/100 Pulse: 65 Resp: 16 PainSc: 8 PainLoc: Back GEN: Pleasant, appropriate affect, NAD. NEURO: Alert, normal gait. ASSESSMENT and PLAN DICKSON: Has been on auto CPAP with good adherence, in good objective response and not much sub jective response yet. Discussed that it Sometimes takes longer to notice difference in e nergy level. Encouraged him to continue to use his machine for all hours of sleep. Today, he tried a large airfit n20 nasal mask and is going to try it and see if he likes it better . I also decreased the tubing temperature to 70 to help with condensation. Sent a prescr iption for overnight oximetry on CPAP and room air to see if he has residual hypoxemia. I a lso again discussed insurance compliance criteria. Restless legs syndrome: is relatively controlled with his medication and does not bother hi m much. I did inform him that his ferritin level has been normal. I don't think he needs a ny further medication adjustment, and it might improve when after his hip surgery. RTC in 6-8 weeks. I spent 30 minutes face to face with the patient, with over 50% spent in counseling and/or coordination of care regarding sleep apnea and RLS. Thank you for the opportunity to participate in this patient's care. Portions of this chart may have been created with [employer] voice recognition software. Occasi onal wrong-word or [...] | + +--------+ + + + | DIAGNOSTIC REPORT - | | 05/04/2017 | | Results for this | | EXTERNAL SCAN | | 12:00 AM | | procedure are in the | | | | PDT | | results section. | + +--------+ + + + | LABS - EXTERNAL SCAN | | 04/23/2017 | | Results for this | | | | 12:00 AM | | procedure are in the | | | | PST | | results section. | + +--------+ + + + documented in this encounter Results DIAGNOSTIC REPORT - EXTERNAL SCAN (05/04/2017 12:00 AM PDT) + + + | Narrative | Performed At | + + + | Ordered by an | | | unspecified provider. | | + + + LABS - EXTERNAL SCAN (04/23/2017 12:00 AM PST) + + + | Narrative | Performed At | + + + | Ordered by an | | | unspecified provider. | | + + + documented in this encounter Visit Diagnoses + + | Diagnosis | + + | DICKSON (obstructive sleep apnea) - Primary Obstructive sleep apnea (adult) (pediatric) | + + | RLS (restless legs syndrome) Restless legs syndrome (RLS) | + + documented in this encounter"
--- OUTSIDE RECORDS SUMMARY | ~2019-11-12 | XMS | Encounter Summary ---
Demographics + + + | Address | [address] | | | [place] [address] | + + + | Home Phone [...] + + + | Author | [facility] | | | and [place] | + + + | Organization | [facility] | | | [...] Team Providers + +------+ + | Care Channel Rebuilder Name | Role | Phone | + +------+ + | Isaac Miranda MD | PCP | | + +------+ + Encounter Details +--------+ + + + + | Date | Type | Department | Care Team | Description | +--------+ + + + + | 05/21/ | Hospital | [facility] | Mahendra Luna MD | Spondylolisthesis of | | 2012 - | Encounter | MED CTR XRAY [address] | [address] | lumbar region; | | | | [place] | [place] [address] | Lumbar disc | | 05/23/ | | [place] [address] | [phone] | herniation with | | 2012 | | [phone] | | radiculopathy; | | | | | | Cervical spondylosis | | | | | | with myelopathy | +--------+ + + + + Social [...] by mouth | | 0 | | 05/31/201 | | (FLOMAX) 0.4 mg CAPS | [...] LUMBAR SPINE 2 OR | Routin | 05/21/2012 | Spondylolisthesis | Results for this | | 3 VW | e | 4:32 PM | of lumbar region | procedure are in the | | | | PDT | Lumbar disc | results section. | | | | | herniation with | | | | | | radiculopathy | | + +--------+ + + + | XR CERVICAL SPINE 2 | Routin | 05/21/2012 | Cervical | Results for this | | OR 3 VIEWS | e | 3:06 PM | spondylosis with | procedure are in the | | | | PDT | myelopathy | results section. | + +--------+ + + + documented in this encounter Results XR Lumbar Spine 2 or 3 Vw (05/21/2012 4:32 PM PDT) + + | Specimen | + + | | + + + + + | Narrative | Performed At | + + + | [facility] | [place] | | Department [address] Loc[address] within [facility] | [facility] | | [ rep [address]] [ rep [facility] | | st zip] Signed | - IMAGING | | | | | Patient Name: PATRICE INTERIANO Physician: | | | ZULEYMA. : 1955 Age: 56 Sex: M Unit #: [id number] | | | Exam Date: 05/21/12 [place] [facility] [place] | | Report #: [id number] Page: | | | %(RAD)RES..mtdd.print.filter("pg") of %(RAD) | | | RES..mtdd.print.filter("tpg") | | | | | | Accession Number: [id number] | | | TWO VIEWS LUMBAR SPINE, [...] Transcribed Date/Time: | | | 05/21/2012 16:58 Telehealth Director: | | | <<Signature on File>> | | | Leander Wang | | | MD Santi05/21/12 6364 <Electronically signed by Leander Hancock MD> | | | Leander Hancock MD 05/21/12 1632 Telehealth Director: | | | Webmedx Tmqlzyiabqtfc64/02/13 1658 Mahendra Luna MD | | | | | + + + + + + + + | Performing | Address | City/State/Zipcode | Phone Number | | Organization | | | | + + + + + | [facility] | [address] | [place] | [phone] | | [facility] | | [address] | | | - IMAGING | | | | + + + + + XR CERVICAL SPINE 3 VIEWS OR LESS (05/21/2012 3:06 PM PDT) + + | Specimen | + + | | + + + + + | Narrative | Performed At | + + + | [facility] | [place] | | Department [address] [place] [address] | [facility] | | [ rep [address]] [ rep [facility] | | st [facility]] Signed | - IMAGING | | | | | Patient Name: PATRICE INTERIANO Physician: | | | ZULEYMA. : 1955 Age: 56 Sex: M Unit #: [id number] | | | Exam Date: 05/21/12 [place] [facility] [place] | | | Report #: [id number] Page: | | | %(RAD)RES..mtdd.print.filter("pg") of %(RAD) | | | RES..mtdd.print.filter("tpg") | | | | | | Accession Number: [id number] | | | CERVICAL SPINE TWO-VIEW X-RAY [...] Transcribed Date/Time: 05/21/2012 15:15 | | | Telehealth Director: <<Signature on File>> | | | | | | Mahendra Hartman MD05/22/12 0943 <Electronically signed by Mahendra | | | Bernadette Hartman MD> Mahendra Hartman MD 05/21/12 1506 | | | Telehealth Director: Lisandro Ngsdtfjpbfebs23/02/13 2690 | | | Mahendra Luna MD | | + + + + + + + + | Performing | Address | City/State/Zipcode | Phone Number | | Organization | | | | + + + + + | [facility] | [address] | [place] | [phone] | | [facility] | | [address] | | | - IMAGING | | | | + + + + + documented in this encounter Visit Diagnoses + + | Diagnosis | + + | Spondylolisthesis of lumbar region Acquired spondylolisthesis | + + | Lumbar disc herniation with radiculopathy Displacement of lumbar intervertebral disc | | without myelopathy | + + | Cervical spondylosis with myelopathy | + + documented in this encounter
--- OUTSIDE RECORDS SUMMARY | ~2019-11-12 | XMS | Encounter Summary ---
Demographics + + + | Address | [address] | | | [place] [address] | + + + | Home Phone [...] Team Providers + +------+ + | Care Telephone Order Clerk Name | Role | Phone | + +------+ + | Isaac Miranda MD | PCP | | + +------+ + Reason for Visit + +--------+ + | Reason | Onset | Comments | | | Date | | + +--------+ + | Appointment Question | 07/03/ | | | | 2016 | | + +--------+ + Encounter Details +--------+ + + + + | Date | Type | Department | Care Team | Description | +--------+ + + + + | 07/03/ | Telephone | [facility] | Mahendra Luna MD | Appointment Question | | 2016 | | NEUROSURGERY [address] | | | | | [address] | [place] [address] | | | | | [place] | [phone] | | | | | [address] | | | | | | [phone] | | | +--------+ + + + [...] Miscellaneous Notes Telephone Encounter - Fredy Navas Fire Systems Inspector - 07/03/2016 8:13 AM Ying ts spouse called in asking if can have sooner appointment. She states has lo st all control of his bowels and is unable to walk without a walker. Patient has fallen mult iple times over the weekend as well and is concerned. Advised patient , per Trinidad horan RN, that Patrice should present to the ED for further evaluation. documented in this encounter Plan of Treatment Not on filedocumented as of this encounter Visit Diagnoses Not on filedocumented in this encounter"
--- OUTSIDE RECORDS SUMMARY | ~2019-11-12 | XMS | Encounter Summary ---
Demographics + + + | Address | [address] | | | [place] [address] | + + + | Home Phone [...] Team Providers + +------+ + | Care Event Security Officer Name | Role | Phone | + +------+ + | Santi Dumont MD | PCP | | + +------+ + Reason for Visit +--------+ + | Reason | Comments | +--------+ + | Cough | cough/uri syptoms x 1 week | +--------+ + Encounter Details +--------+---------+ + + + | Date | Type | Department | Care Team | Description | +--------+---------+ + + + | 07/02/ | Office | [facility] | Santi Dumont MD | Productive cough | | 2019 | Visit | MEDICINE [address] | [address] [facility] | (Primary Dx); Acute | | | | [address] [place], | [place] | bronchitis, | | | | [place] [address] | [address] | unspecified organism | | | | [phone] | | | +--------+---------+ + + + [...] + + + | Blood Pressure | 120/80 | 07/02/2018 3:42 PM | | | | | PDT | | + + + + + | Pulse | 70 | 07/02/2018 3:42 PM | | | | | PDT | | + + + + + | Temperature | 37 C (98.6 F) | 07/02/2018 3:42 PM | | | | | PDT | | + + + + + | Respiratory Rate | 20 | 07/02/2018 3:42 PM | | | | | PDT | | + + + + + | Oxygen Saturation | 96% | 07/02/2018 3:42 PM | | | | | PDT | | + + + + + | Inhaled Oxygen | - | - | | | Concentration | | | | + + + + + | Weight | 116 kg (255 lb 11.7 | 07/02/2018 3:42 PM | | | | oz) | PDT | | + + + + + | Height | 177.8 cm (5' 10") | 07/02/2018 3:42 PM | | | | | PDT | | + + + + + | Body Mass Index | 36.69 | 07/02/2018 3:42 PM | | | | | PDT | | + + + + + documented in this encounter Patient Instructions Patient Instructions Maria Teresa Tejeda CMA - 07/02/2018 3:40 PM PDTStart Azithromycin, 2 ta bs today, then 1 tab daily x 4 days Follow up at appointment on 08/26/2018Electronically signed by Maria Teresa Tejeda CMA at 019 4:15 PM PDT documented in this encounter Progress Notes Santi Dumont MD - 07/02/2018 3:40 PM PDT 07/02/2018 Patrice Interiano 1955 History: Patrice Interiano is a 63 y.o. male here for evaluation of cough He was in his usual health until 1 week ago when he developed sore throat, followed by coug h productive of green sputum, and generalized sinus pressure. He had been traveling to [place] to visit family the week prior, and his sister there was ill with a sore throat. He has taken Robitussin-DM without improvement. His maximal temperature was 97.1. He only feels short of breath with prolonged coughing. He has muscle pain with coughing, denies he moptysis. He is a current non-smoker. Current Outpatient Medications Medication Sig Dispense Refill [...] visit. No Known Allergies Review of Systems Constitutional: Positive for fatigue. HENT: Positive for congestion and sore throat. Respiratory: Positive for cough (with yellow sputum production). Cardiovascular: Negative for chest pain. Neurological: Positive for headaches. Physical Exam: BP 120/80 | Pulse 70 | Temp 37 C (98.6 F) (Tympanic) | Resp 20 | Ht 1.778 m (5' 10" ) | Wt 116 kg (255 lb 11.7 oz) | SpO2 96% | BMI 36.69 kg/m General: obese man with deep cough in no distress. Not toxic appearing HEENT: no oral ulcers or thrush. TMs normal. Mild erythema over the pharynx, with no exuda te. No frontal, ethmoid or maxillary tenderness. Turbinates are non enlarged with mild mucoi d exudate present. Lungs: clear to auscultation & percussion. Respirations unlabored. Heart: regular rhythm, no murmur. Extremities: no peripheral edema. Psych: normal affect. Assessment: 1. Productive cough 2. Acute bronchitis, unspecified organism Plan: 1. Start Azithromycin, 2 tabs today, then 1 tab daily x 4 days 2. Reviewed potential side effects 3. Notify MD if he develops shaking chills, temperature greater than 101.5, dyspnea or rachel st pain. Followup Instructions: Return for appointment on 08/26/2018. I, Santi Dumont MD, personally performed the services described in this documentation as scribed by Maria Teresa Tejeda M.A in my presence, and the documentation is both accurate and com plete. Santi Dumont MD 07/02/2018 documented in this enc ounter Plan of Treatment Not on filedocumented as of this encounter Visit Diagnoses + + | Diagnosis | + + | Productive cough - Primary Cough | + + | Acute bronchitis, unspecified organism | + + documented in this encounter
--- OUTSIDE RECORDS SUMMARY | ~2019-11-12 | XMS | Encounter Summary ---
Demographics + + + | Address | [address] | | | [place] [address] | + + + | Home Phone [...] Team Providers + +------+ + | Care Paediatrician Name | Role | Phone | + +------+ + | Isaac Miranda MD | PCP | | + +------+ + Reason for Visit + +--------+ + | Reason | Onset | Comments | | | Date | | + +--------+ + | Establish Care | 01/09/ | | | | 2016 | | + +--------+ + Encounter Details +--------+ + + + + | Date | Type | Department | Care Team | Description | +--------+ + + + + | 01/09/ | Telephone | [facility] | Santi Dumont MD | Establish Care | | 2016 | | MEDICINE [address] | [address] [facility] | | | | | [place], | [place] | | | | | [place] [address] | [address] | | | | | [phone] | | | +--------+ + + + [...] this encounter Miscellaneous Notes Telephone Encounter - Dano Proctor - 01/15/2017 2:45 PM PSTPt scheduled 01/31/17Electro nically signed by Dano Proctor at 01/15/2017 2:45 PM PSTTelephone Encounter - Magdalene Roper RN - 01/10/2017 4:56 PM PSTOffice: Dr. Dumont has agreed to see this patient to establish new. He asks that a 40 min new pt appt be scheduled within the next 1 month.Elec tronically signed by Magdaleen Roper RN at 01/10/2017 5:02 PM PSTTelephone Encounter - Santi Dumont MD - 01/09/2017 5:[address] Dr. Miranda, who is retiring at the end of the month. He requests me to follow-up Mr. Interiano, for recent diagnosis of pulm onary embolism, on oxygen. He is currently anticoagulated with Eliquis.Electronically shelbie d by Santi Dumont MD at 01/09/2017 5:38 PM PSTdocumented in this encounter Plan of Treatment Not on filedocumented as of this encounter Visit Diagnoses + + | Diagnosis | + + | Other acute pulmonary embolism without acute cor pulmonale (HCC) | + + documented in this encounter"
--- OUTSIDE RECORDS SUMMARY | ~2019-11-12 | XMS | Encounter Summary ---
Demographics + + + | Address | [address] | | | [place] [address] | + + + | Home Phone [...] + + + | Author | [facility] | | | and [place] | + + + | Organization | [facility] | | | and [...] Team Providers + +------+ + | Care Deicer Finisher Name | Role | Phone | + +------+ + | Santi Dumont MD | PCP | | + +------+ + Reason for Visit + +--------+ + | Reason | Onset | Comments | | | Date | | + +--------+ + | Disability Form | 03/03/ | | | | 2019 | | + +--------+ + Encounter Details +--------+ + + + + | Date | Type | Department | Care Team | Description | +--------+ + + + + | 03/03/ | Telephone | [facility] | Santi Dumont MD | Disability Form | | 2019 | | MEDICINE [address] | [address] [facility] | | | | | [place], | [place] | | | | | [place] [address] | [address] | | | | | [phone] | | | +--------+ + + + [...] this encounter Miscellaneous Notes Telephone Encounter - Briseida Page - 03/06/2019 1:14 PM PSTForm was [facility] elephone Encounter - Briseida Page - 03/06/2019 1:11 PM PSTSpoke with and she stated the y would like it mailed to address, she thought he had already called to inform us.Electronic ally signed by Briseida Page at 03/06/2019 1:14 PM PSTTelephone Encounter - Briseida Page - 03/05/2019 10:37 AM PSTLeft a second voicemail notifying form is ready for black pickler. elephone Encounte r - Briseida Page - 03/04/2019 9:26 AM PSTLeft patient a voicemail letting him know i t is ready for black pickler or if he would like it mailed call us back. elephone Encounter - Magdalene Roper RN - 03/04/2019 8:43 AM PSTParking form sent to front office. Please call patient. Does he w ant it mailed to him? He needs to sign and date form. elephone Encounter - Santi Dumont MD - 03/03/2019 9:14 PM PSTDisabled parking permit renewed for permanent status for diagnosis of hip arthr itis elephone Encounte r - Magdalene Roper RN - 03/03/2019 10:16 AM PSTO[place] Dis[place] Parking form placed o n Dr. Dumont's desk. A M PSTTelephone Encounter - Claudio Carpio - 03/03/2019 9:16 AM PSTContact/Caller: Gely Contact Number: [phone] Provider/Nurse: Julia Reason for Call: Patient's spouse came in asking for a renewal of disabled parking. Sent f orm to back. Placed in box. Last Appointment: 03-03-19 Next Appointment: 05-20-19 documented in th is encounter Plan of Treatment Not on filedocumented as of this encounter Visit Diagnoses Not on filedocumented in this encounter"
--- OUTSIDE RECORDS SUMMARY | ~2019-11-12 | XMS | Encounter Summary ---
Demographics + + + | Address | [address] | | | [place] [address] | + + + | Home Phone | | + + + | Preferred Language | Unknown | + + + | Marital Status | | + + + | Mormon Affiliation | Unknown | + + + | Race | White | + + + | Ethnic Group | Not or | + + + Author + + + | Author | [facility] | | | and Brianana | + + + | Organization | [facility] | | | and [...] Team Providers + +------+ + | Care Palliative Nurse Name | Role | Phone | + +------+ + | Santi Dumont MD | PCP | | + +------+ + Reason for Visit + +--------+ + | Reason | Onset | Comments | | | Date | | + +--------+ + | Medication Reaction | 12/14/ | | | | 2017 | | + +--------+ + Encounter Details +--------+ + + + + | Date | Type | Department | Care Team | Description | +--------+ + + + + | 12/14/ | Telephone | [facility] | Santi Dumont MD | Medication Reaction | | 2017 | | MEDICINE [address] [place] [address] | [address] [place] [address] | | | | | [place], | [place] | | | | | [place] [address] | [id number] | | | | | [phone] | | | +--------+ + + + [...] Telephone Encounter - Santi Dumont MD - 12/15/2017 5:39 PM PDTPhone call to patient, co nfirmed that he received message to start Medrol Dosepak, he is feeling better overall, with less dyspnea after one week of Eliquis. He will call back if rash comes back after the Med rol Dosepak is complete. TTelephone Encounter - Santi Dumont MD - 12/14/2017 5:51 PM PDTPhone call to patient, no answer. Left message advising him to take a Medrol Dosepak and continue Eliquis dosing as prescribed. Suspect allergy is not Eliquis related. elephone Encounter - Magdalene Roper RN - 12/14/2017 3 :10 PM PDTYesterday Patrice started itching, worse on torso and neck. Has red and blotchy milton h. Patient was started on Eliquis on 12/07. He started on 10mg BID x 7 days, then today start ed 10mg am and 5 mg pm for 7 days and then will be on 5mg BID. He is wondering if this is an Eliquis allergy or just what. There have been no other med c hanges. No increase in shortness of breath. No airway difficulties. He had been on Eliquis previ ously for months and tolerated it OK. He does take Claritin daily. Dr. Dumont , please advise. elephone Encounter - Africa Mcmahan - 12/14/2017 12:55 PM PDTJana patient's called stating patient was told to taper down on Eliquis, patient has complained of itching , and rash all over body. Gely states he's never had a problem with this medication, and is unsure if its from the de crease of medication, please advise. 1 :04 PM PDTdocumented in this encounter Plan of Treatment Not on filedocumented as of this encounter Visit Diagnoses Not on filedocumented in this encounter"
--- OUTSIDE RECORDS SUMMARY | ~2019-11-12 | XMS | Encounter Summary ---
Demographics + + + | Address | [address] | | | [place] [address] | + + + | Home Phone [...] + + | Author | [facility] | | | and Brianana | + + + | Organization | [facility] | | | [...] Team Providers + +------+ + | Care Lathe Turner Name | Role | Phone | + [...] | | | [address] [place] | [place] [address] | | | | | [place] [address] | | | | | | [phone] | | | +--------+ + + + [...] + + + | CT ANGIOGRAM CHEST W | Routin | 12/03/2016 | | Results for this | | CONTRAST | e | 12:05 AM | | procedure are in the | | | | PDT | | results section. | + +--------+ + + + documented in this encounter Results CT Angiogram Chest W Contrast (12/03/2016 12:05 AM PDT) + + | Specimen | [...]
--- OUTSIDE RECORDS SUMMARY | ~2019-11-12 | XMS | Encounter Summary ---
Demographics + + + | Address | [address] | | | [place] [address] | + + + | Home Phone | | + + + | Preferred Language | Unknown | + + + | Marital Status | | + + + | Presybeterian Affiliation | Unknown | + + + [...] Team Providers + +------+ + | Care Logistics Clerk Name | Role | Phone | + +------+ + | Isaac Miranda MD | PCP | | + +------+ + Encounter Details +--------+ + + + + | Date | Type | Department | Care Team | Description | +--------+ + + + + | 01/15/ | Hospital | [facility] | Mahendra Luna MD | S/P cervical spinal | | 2011 - | Encounter | MED CTR XRAY [address] | fusion | | | | [place] | [place] [address] | | | 01/17/ | | [place] [address] | [phone] | | | 2011 | | [phone] | | | +--------+ + + + [...] at Time of Discharge + + + +---------+--------+ + | Medication | Sig | Dispensed | Refills | Start | End Date | | | | | | Date | | + + + +---------+--------+ + | lisinopril | Take 20 mg by mouth | | 0 | | | | (PRINIVIL, ZESTRIL) | Daily. | | | | 7 | | 20 mg tablet | | | | | | + + + +---------+--------+ + | methocarbamol | Take 750 mg by mouth | | 0 | | | | (ROBAXIN) 750 mg | 4 times daily. | | | | 7 | | tablet | | | | | | + + + +---------+--------+ + | nadolol (CORGARD) | Take 80 mg by mouth | | 0 | | | | 80 MG tablet | Daily. | | | | 7 | + + + +---------+--------+ + | | Take by mouth. | | 0 | | | | Oxycodone-Acetaminop | | | | | 3 | | hen (PERCOCET PO) | | | | | | + + + +---------+--------+ + | pramipexole | Take 0.5 mg by mouth | | 0 | | | | (MIRAPEX) 0.5 MG | Daily. | | | | 7 | | tablet | | | | | | + + + +---------+--------+ + | sertraline | Take 50 mg by mouth | | 0 | | | | (ZOLOFT) 50 mg | Daily. | | | | 7 | | tablet | | | | | | + + + +---------+--------+ + documented as of this encounter Plan of Treatment Not on filedocumented as of this encounter Procedures + +--------+ + + + | Procedure Name | Priori | Date/Time | Associated Diagnosis | Comments | | | ty | | | | + +--------+ + + + | XR CERVICAL SPINE 2 | Routin | 01/16/2012 | S/P cervical | Results for this | | OR 3 VIEWS | e | 1:11 PM | spinal fusion | procedure are in the | | | | PST | | results section. | + +--------+ + + + documented in this encounter Results XR Cervical Spine 2 or 3 Vw (01/16/2012 1:11 PM PST) + + | Specimen | + + | | + + + + + | Narrative | Performed At | + + + | [facility] | [place] | | Department [address] [place] | [facility] | | [ rep ct [address]] [ rep ct [facility] | | st zip] Signed | - IMAGING | | | | | Patient Name: MADONNAJORGEPATRICE Victorino Physician: | | | THANIAD. : 1955 Age: 56 Sex: M Unit #: [id number] | | | Exam Date: 01/16/12 Location: [facility] – [place] | | | Report #: [id number] Page: | | | %(RAD)RES..mtdd.print.filter("pg") of %(RAD) | | | RES..mtdd.print.filter("tpg") | | | | | | Accession Number: [id number] | | | CERVICAL SPINE CLINICAL HISTORY: [...] Transcribed Date/Time: | | | 01/16/2012 13:25 Buffing Machine Operator Semiautomatic: | | | <<Signature on File>> | | | | | | Dickson Armenta MD01/16/12 1402 <Electronically signed by | | | Dickson Armenta MD> Dickson Armenta MD 01/16/12 | | | 1311 Buffing Machine Operator Semiautomatic: [employer]target Jlnfvehlygkyb30/27/12 1325 | | | Mahendra Luna MD | | + + + + + + + + | Performing | Address | City/State/[facility] | Phone Number | | Organization | | | | + + + + + | [address] | [address] | [place] | [phone] | | [facility] | | [address] | | | - IMAGING | | | | + + + + + documented in this encounter Visit Diagnoses + + | Diagnosis | + + | S/P cervical spinal fusion Arthrodesis status | + + documented in this encounter
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
--- OUTSIDE RECORDS SUMMARY | ~2019-11-12 | XMS | Encounter Summary ---
Demographics + + + | Address | [address] | | | [place] [address] | + + + | Home Phone [...] Providers + +------+ + | Care Respiratory Therapy Instructor Name | Role | Phone | + +------+ + | Santi Dumont MD | PCP | | + +------+ + Encounter Details +--------+ + + + + | Date | Type | Department | Care Team | Description | +--------+ + + + + | 09/16/ | Hospital | [facility] | Santi Dumont MD | Abnormal | | 2019 | Encounter | MED CTR ULTRASOUND | [address] [facility] | transaminases | | | | [address] [place] | [place], [place] | | | | | [place], [place] | [address] | | | | | [address] | | | | | | [phone] | | | +--------+ + + + [...] + + | | Take by mouth. As | | 0 | | | | Dextromethorphan-gua | directed | | | | 0 | | iFENesin | | | | | | | (COUGH/CHEST | | | | | | | CONGESTION DM PO) | | | | | | [...] Take 2 tablets by | 180 | 2 | 09/10/19 | | | lisinopril-hydrochlo | mouth Daily. | tablet | | 19 | 0 | | rothiazide | | | | | | | (PRINZIDE,ZESTORETIC | | | | | | | ) 20-25 MG per | | | | | | | tablet | | | | | | + + + +---------+ + + | nadolol (CORGARD) | Take one-half tablet | 15 | 5 | 08/03/19 | | | 80 MG tablet | [...] TABLET BY | 30 | 5 | 07/04/19 | | | (MIRAPEX) 0.5 MG | MOUTH EVERY DAY | tablet | | 19 | 9 | | tablet | | | | | | + + + +---------+ + + | sertraline | TAKE ONE TABLET BY | 30 | 5 | 07/18/19 | | | (ZOLOFT) 50 mg | MOUTH EVERY DAY | tablet | | 19 | 9 | | tablet | | | | | | + + + +---------+ + + | terazosin (HYTRIN) | TAKE ONE CAPSULE BY | 30 | 4 | 08/27/19 | | | 5 mg capsule | MOUTH EVERY DAY | capsule | | 19 | 9 | + [...] | + +--------+ + + + | US ABDOMEN LIMITED | Routin | 09/16/2018 | Abnormal | Results for this | | | e | 10:30 AM | transaminases | procedure are in the | | | | PDT | | results section. | + +--------+ + + + documented in this encounter Results US Abdomen Limited (09/16/2018 [...] fatty infiltration. Dictated and Signed by: García Britton, | | | MD Electronically signed: 09/16/2018 2:20 PM | | [...] Diagnosis | + + | Abnormal transaminases Nonspecific elevation of levels of transaminase or lactic acid | | dehydrogenase (LDH) | + + documented in this encounter"
--- OUTSIDE RECORDS SUMMARY | ~2019-11-12 | XMS | Encounter Summary ---
Demographics + + + | Address | [address] | | | [place] [address] | + + + | Home Phone [...] Team Providers + +------+ + | Care Production Corrugator Name | Role | Phone | + +------+ + | Santi Dumont MD | PCP | | + +------+ + Encounter Details +--------+ + + + + | Date | Type | Department | Care Team | Description | +--------+ + + + + | 04/24/ | Episode | [facility] | [place], | | | 2017 | Changes | ORTHOPEDIC SURGERY | Telecom Manager | | | | | [address] | | | | | | [place] | | | | | | [address] | | | | | | [phone] | | | +--------+ + + + [...]
== END 2019-11-12 03:50 | disposition home or self-care (01) ==
LOC: ED 00:26
DX: T84.020A Dislocation of internal right hip prosthesis, initial encounter (principal); X58.XXXA Exposure to other specified factors, initial encounter; I10 Essential (primary) hypertension; Z79.899 Other long term (current) drug therapy
CPT/HCPCS: 27265; 72170; 73501; 99283-25; J2704; J3010

== ENCOUNTER 2020-01-18 17:56 | Emergency (ER) | payer MEDICARE ==
[~2020-01-18] VITALS: Ht 177.8 cm; Wt 109.8 kg
== END 2020-01-18 20:07 | disposition home or self-care (01) ==
LOC: ED 17:56
DX: T84.020A Dislocation of internal right hip prosthesis, initial encounter (principal); I10 Essential (primary) hypertension; Z79.899 Other long term (current) drug therapy
CPT/HCPCS: 27265; 73501; 99152; 99283-25; J2704; J3010

== ENCOUNTER 2020-08-12 21:15 | Emergency (ER) | payer MEDICARE ==
[~2020-08-12] VITALS: Ht 177.8 cm; Wt 124.5 kg
[2020-08-12] MEDS ORDERED: ELIQUIS5 MG PO (21:57)
[2020-08-12] MEDS ORDERED: LISINOPRIL-HCT1 EAC1 PO (21:58)
== END 2020-08-13 04:17 | disposition home or self-care (01) ==
LOC: ED 21:15
DX: T84.021A Dislocation of internal left hip prosthesis, initial encounter (principal); X58.XXXA Exposure to other specified factors, initial encounter; I10 Essential (primary) hypertension; Z79.899 Other long term (current) drug therapy
CPT/HCPCS: 27265; 73501; 73502; 99283-25; J1170; J2704

== ENCOUNTER 2020-09-28 18:55 | Emergency (ER) | payer MEDICARE ==
[~2020-09-28] VITALS: Ht 177.8 cm; Wt 122.0 kg
[~2020-09-28 18:55] MED LIST changes: +ELIQUIS5 MG PO; +LISINOPRIL-HCT1 EAC1 PO
== END 2020-09-29 01:03 | disposition home or self-care (01) ==
LOC: ED 18:55
DX: M10.9 Gout, unspecified (principal); I10 Essential (primary) hypertension; Z79.899 Other long term (current) drug therapy
CPT/HCPCS: 80053; 84550; 85025; 99283

== ENCOUNTER 2020-12-14 07:55 | Day surgery (SDC) | payer MEDICARE ==
[~2020-12-14] VITALS: Ht 177.8 cm; Wt 120.5 kg
[~2020-12-14 07:55] MED LIST changes: +ALLOPURINOL100 MG PO; +ALLOPURINOL300 MG PO; +FLOMAX0.4 MG PO; +METFORMIN HCL500 MG PO; +NADOLOL20 MG PO; +PREDNISONE20 MG PO; +TRIAMCINOLONE A15 G2 TOP; +ULTRAM50 MG PO; +VENTOLIN HFA18 GM INH; +ZYRTEC10 MG PO
--- NOTE | 2020-12-14 09:28 | NUR ---
ENTERED ROOM TO UPDATE PATIENT ON SURGERY TIME. PT SNORING. RESPONDS TO VOICE. ORIENTED TO TIME AND SITUATION.
--- NOTE | 2020-12-14 09:35 | NUR ---
SPOT CHECK SP02 88% WHEN PT AWOKEN FROM SLEEP. SPO2 INCREASES TO 96% ON ROOM AIR WITH CONVERSATION.
--- NOTE | 2020-12-14 10:52 | NUR ---
12/14/20 1052 Jackie Fish 1040-PATIENT ARRIVED TO PACU ON 6L MASK RR EVEN. PATIENT AROUSES TO VERBAL STIMULI ENCOURAGED TO TAKE DEEP BREATHES. SR. IVF INFUSING. INCISION TO RIGHT NOSTRIL CDI. 1042-GLUCOSE 113. 1048-DR. FINLEY AT BEDSIDE TALKING TO PATIENT. PATIENT AWAKE DROWSY FOLLOWS COMMANDS DENIES PAIN OR NAUSEA. PLACED ON RA. ENCOURAGED DEEPO BREATHES. 1050-PATIENT PLACED ON 2L NC O2 DESATTED TO 86% ON RA. PATIENT REPORTS "HASN'T USED CPAP IN LAST MONTh" HAS SLEEP APNEA. O2 INCREASED TO 93% 2L NC.
--- NOTE | 2020-12-14 11:41 | NUR ---
PROVIDED PT WITH CRACKERS AND WATER. DENIES PAIN OR NAUSEA. CALLED DR FINLEY AND CONFIRMED THAT THE PT IS TO BEGIN TAKING HIS ELIQUIS AGAIN STARTING TODAY.
--- NOTE | 2020-12-21 15:38 | OR ---
[facility] [address] [place], [place] [address] Signed DATE OF OPERATION: 12/14/2020 SURGEON: Jesse Finley MD PREOPERATIVE DIAGNOSIS: Right facial lesion. POSTOPERATIVE DIAGNOSIS: Right facial lesion. PROCEDURE: Excision of right facial lesion. ANESTHESIA: General LMA. Vitor FERNANDES. PREOPERATIVE HISTORY: Patrice is a 65-year-old male with a hard knot on the right side of his nose just beneath the medial canthus, this has been present for a month or so. He is taken to the operating room for excision of this lesion. OPERATIVE PROCEDURE AND FINDINGS: After informed consent, the patient was taken to the operating room, placed in supine position where general LMA anesthesia was induced. The patient and procedure were verified. The right face was sterilely prepped and draped. The lesion had been marked preop. The lesion in question was on the right side of the nose just beneath the medial canthus, felt to be about 5 x 15 or 20 mm subcutaneous, somewhat mobile, but partially attached to deep structures i.e. bone. After sterile prep and drape, incision was marked over the lesion. A 1% lidocaine with epi was injected. The incision was made, carried through skin and subcutaneous tissue. A white firm lesion was then identified, completely dissected free, it was close to bone, not attached, it was about 6 x 20 mm lesion, ovoid, white, firm, appeared to be similar size and shape of an elongated peanut. The lesion was removed completely. Hemostasis obtained with needle point cautery. The wound was then closed with 5-0 interrupted Vicryl subcu and 5-0 running nylon on the skin. The lesion was incised away from the patient was firm, solid appeared obese similar to cartilaginous tissue, was sent to pathology in formalin. The skin was cleansed. Neosporin ointment was applied. The patient was then awakened, extubated, transported to the recovery room in good condition. No complications. BLOOD LOSS: Electronically Signed By: JESSE FINLEY MD 12/21/20 1538 PATIENT NAME: PATRICE LION OPERATIVE REPORT DATE OF : 57 REPORT #: [id number] PHYSICIAN: JESSE FINLEY MD PCP: ALEKSANDER LOMBARDO MD REPORT IS CONFIDENTIAL AND NOT TO BE RELEASED WITHOUT AUTHORIZATION [address] [address] Signed Minimal. SPECIMEN: To pathology. DRAINS: No drains. Jesse Finley MD GC/MODL /[id number] Copies: ~ Electronically Signed By: JESSE FINLEY MD 12/21/20 1538 PATIENT NAME: PATRICE LION OPERATIVE REPORT DATE OF : 57 REPORT #: [id number] PHYSICIAN: JESSE FINLEY MD PCP: ALEKSANDER LOMBARDO MD REPORT IS CONFIDENTIAL AND NOT TO BE RELEASED WITHOUT AUTHORIZATION
--- NOTE | 2020-12-22 16:57 | PATH ---
[facility] [address] [place], [place] [address] Signed SPECIMEN(S): A RIGHT FACIAL LESION SPECIMEN SOURCE: A. RIGHT FACIAL LESION CLINICAL HISTORY: Excision right facial lesion. FINAL PATHOLOGIC DIAGNOSIS: Skin, right facial lesion, excision: - Consistent with cutaneous leiomyoma; see comment. COMMENT: Histologic sections show a well circumscribed spindle cell proliferation with stromal hyalinization. Properly controlled immunohistochemical stains were performed. The cells of interest are positive for SMA and vimentin, while negative for S-100, Desmin, AE1/AE3, SOX-10, CD34, and STAT6. This morphology and immunophenotype are supportive of the above diagnosis. Control slides stained appropriately positive. This case was seen in consultation with Dr. Mahendra Garcia, Dr. Jung Woo, and Dr. Melba Gonzalez, who concur with this diagnosis. TWK:[facility]:C2NR MICROSCOPIC EXAMINATION: Histologic sections of all submitted blocks are examined by light microscopy. These findings, together with the gross examination, support the pathologic diagnosis. GROSS DESCRIPTION: The specimen, labeled "TD, A," and designated on the requisition "right facial lesion," is received in formalin and consists of a piece of white-miller soft tissue (1.8 x 0.8 x 0.6 cm) with no skin surface grossly identified. The specimen is inked blue, serially sectioned and submitted entirely in cassette (A1). AC (under the direct supervision of a pathologist) The Gross Description was prepared using a voice recognition system. The report was reviewed for accuracy; however, sound-alike word errors, addition and/or deletions may occur. If there is any question about this report, please contact Client Services. PATIENT NAME: KASSANDRA LION PATHOLOGY DATE OF : 57 REPORT #: [id number] PHYSICIAN: KARINA PATHOLOGY PCP: ALEKSANDER LOMBARDO MD REPORT IS CONFIDENTIAL AND NOT TO BE RELEASED WITHOUT AUTHORIZATION [facility] [address], [place] [address] Signed ADDITIONAL NOTES: Immunohistochemical and/or in situ hybridization studies were performed on this case with the appropriate positive controls that react as expected. This test was developed and its performance characteristics determined by [facility]. It has not been cleared or approved by the U.S. Food and Drug Administration. The FDA has determined that such clearance or approval is not necessary. This test is used for clinical purposes. It should not be regarded as investigational or for research. [facility] is certified under the Clinical Laboratory Improvement Amendments of 1988 (CLIA) as qualified to perform high complexity clinical laboratory testing. This assay has not been validated for specimens that have been decalcified. PERFORMING LABORATORY: The technical component was performed by [facility], [address] [place] [id number] (Pricer Bagger: Melba Gonzalez MD; CLIA# [id number]). The professional interpretation was performed by [facility], [facility], [address] [place] [address]. Diagnostician: Ranulfo Sabillon MD Pathologist Electronically Signed 12/22/2020 Copies: ~ PATIENT NAME: KASSANDRA LION PATHOLOGY DATE OF : 57 REPORT #: [id number] PHYSICIAN: KARINA PATHOLOGY PCP: ALEKSANDER LOMBARDO MD REPORT IS CONFIDENTIAL AND NOT TO BE RELEASED WITHOUT AUTHORIZATION
== END 2020-12-14 12:20 | disposition home or self-care (01) ==
LOC: DS 07:55 → OPS 07:55 → DS 10:30 → OPS 12:20
PROVIDERS: ATTEND Otolaryngology
PROC: 0JB10ZZ Excision of Face Subcutaneous Tissue and Fascia, Open Approach (ICD-10-PCS; principal; 2020-12-14 10:30)
DX: L98.9 Disorder of the skin and subcutaneous tissue, unspecified (principal); I10 Essential (primary) hypertension; E11.9 Type 2 diabetes mellitus without complications; J44.9 Chronic obstructive pulmonary disease, unspecified; K21.9 Gastro-esophageal reflux disease without esophagitis; G47.33 Obstructive sleep apnea (adult) (pediatric); M10.9 Gout, unspecified; M19.90 Unspecified osteoarthritis, unspecified site; G25.81 Restless legs syndrome; G25.0 Essential tremor; Z86.711 Personal history of pulmonary embolism; Z79.01 Long term (current) use of anticoagulants; Z79.84 Long term (current) use of oral hypoglycemic drugs
CPT/HCPCS: 00300; 88305; 88341; 88342; J1100; J2001; J2405; J2704; J3010; J7121

== ENCOUNTER 2023-01-04 05:57 | Day surgery (SDC) | payer MEDICARE ==
[~2023-01-04] VITALS: Ht 177.8 cm; Wt 109.0 kg
[2023-01-04 06:06] VITALS: BP 146/89
[2023-01-04 08:16] VITALS: BP 122/94
--- NOTE | 2023-01-04 09:29 | OR ---
[facility] [address], [place] [address] Signed DATE OF OPERATION: 01/04/2023 SURGEON: Cindi Castañeda MD PREOPERATIVE DIAGNOSES: 1. Personal history of colonic polyps in 2010 at age 54. 2. Minimal left-sided diverticulosis. POSTOPERATIVE DIAGNOSES: 1. 4 mm polyp at 12 cm in rectum. 2. Minimal left-sided diverticulosis. 3. Minimal internal hemorrhoids. PROCEDURE: Colonoscopy with hot biopsy. ESTIMATED BLOOD LOSS: None. INDICATIONS: Patrice is a 67-year-old obese diabetic gentleman, asked to see me for followup colonoscopy. In 2010, we helped him with a 4 mm serrated adenomatous polyp at 15 cm in the rectum. He was 54 years old. He also had minimal diverticulosis. We asked him to follow up in 5 years. He has been through several primary care providers as well as the COVID pandemic. He is now disabled because of his back and other issues. He also had a DVT and a PE about three years ago. He has been on Eliquis ever since. He is returning now for his followup colonoscopy. He said he has no lower GI complaints. There is no family history of colon cancer or polyps. In the office, I gave Patrice a pamphlet on colonoscopy. We had reviewed the nature of the test. There is risk including, but not limited to gas bloating, crampy abdominal pain, bleeding, perforation requiring surgery and missed diagnosis. We also reviewed the need for monitored anesthesia care given his current medical issues and functional status. We also had him hold the Eliquis before the procedure. He had expressed understanding and wished to proceed. DESCRIPTION OF PROCEDURE: Patrice was taken into our endoscopy suite and placed in the left lateral decubitus position. He was given monitored anesthesia care with propofol infusion per our nurse discovery manager. A digital rectal exam was performed. There are no external hemorrhoids. He has good sphincter tone. There were no masses. Patrice is a large man and I could not reach his prostate gland. After this, the adult colonoscope was introduced and advanced Electronically Signed By: CINDI CASTAÑEDA MD 01/04/23 0929 PATIENT NAME: PATRICE LION OPERATIVE REPORT DATE OF : 57 REPORT #: [id number] PHYSICIAN: CINDI CASTAÑEDA MD PCP: ALEKSANDER LOMBARDO MD REPORT IS CONFIDENTIAL AND NOT TO BE RELEASED WITHOUT AUTHORIZATION [facility] [address] [place], [place] [address] Signed all around into the cecum under direct visualization of the camera without difficulty. His prep was good. The scope was then slowly withdrawn. We took pictures throughout for photodocumentation. We could easily see the appendiceal orifice and the ileocecal valve. Again, he has some diverticula in the left side of his colon. They are small to moderate in size, few in number and scattered about. He had a tiny 4 mm polyp at about 12 cm in his rectum. It was easily removed with the hot biopsy forceps. Upon retroflexion of the scope, he has very minimal internal hemorrhoid tissue. After this, the gas was suctioned out and the colonoscope removed. Patrice tolerated the procedure quite well. RECOMMENDATIONS: I will see Patrice back in my office in 7 to 14 days to review his results. He will stay on the five year plan. He will resume his Eliquis in one week. MD GUILHERME Nettles/MODL /[id number] cc: MD Aleksander Nettles MD Copies: CINDI CASTAÑEDA MD, KEVIN R MD ~ Electronically Signed By: CINDI CASTAÑEDA MD 01/04/23 0929 PATIENT NAME: PATRICE LION OPERATIVE REPORT DATE OF : 57 REPORT #: [id number] PHYSICIAN: CINDI CASTAÑEDA MD PCP: ALEKSANDER LOMBARDO MD REPORT IS CONFIDENTIAL AND NOT TO BE RELEASED WITHOUT AUTHORIZATION
== END 2023-01-04 08:30 | disposition home or self-care (01) ==
LOC: DS 05:57 → OPS 05:57 → DS 07:30 → OPS 08:30 → DS 08:45
PROVIDERS: ATTEND Colon & Rectal Surgery
PROC: 0DBP8ZX Excision of Rectum, Via Natural or Artificial Opening Endoscopic, Diagnostic (ICD-10-PCS; principal; 2023-01-04 07:30)
DX: Z12.11 Encounter for screening for malignant neoplasm of colon (principal); K62.1 Rectal polyp; K64.8 Other hemorrhoids; K57.30 Diverticulosis of large intestine without perforation or abscess without bleeding; Z86.010 Personal history of colon polyps; J44.9 Chronic obstructive pulmonary disease, unspecified; I12.9 Hypertensive chronic kidney disease with stage 1 through stage 4 chronic kidney disease, or unspecified chronic kidney disease; E11.22 Type 2 diabetes mellitus with diabetic chronic kidney disease; N18.9 Chronic kidney disease, unspecified; K21.9 Gastro-esophageal reflux disease without esophagitis; G47.33 Obstructive sleep apnea (adult) (pediatric); M10.9 Gout, unspecified; N40.0 Benign prostatic hyperplasia without lower urinary tract symptoms; E66.9 Obesity, unspecified; Z68.37 Body mass index [BMI] 37.0-37.9, adult; Z86.711 Personal history of pulmonary embolism; Z79.01 Long term (current) use of anticoagulants; Z79.899 Other long term (current) drug therapy
CPT/HCPCS: 00811; 88305; J0690; J1644; J2001; J2704; J7121